=== PATIENT | male | born 1990 | race Hispanic/Latino ===

== ENCOUNTER 2017-11-29 14:07 | Emergency (ER) | payer SELFPAY ==
[2017-11-29] MEDS ORDERED: NA CHLORIDE 0.9% 1,000 ML ONE (14:31)
[2017-11-29 14:48] LABS: Absolute Lymphocytes (CBC) 1.4 K/uL (0.7-4.9); Absolute Monocytes 0.5 K/uL (0.1-1.3); Absolute Neutrophil 9.2 K/uL (1.8-8.0); Basophils % 0.7 % (0-1.3); Eosinophils % 0.8 % (0-4.4); Hematocrit 38.7 % (39.6-49.0); Lymphocytes % 12.2 % (15.3-44.8); MCH 29.4 pg (27.0-35.0); MCV 89.3 fL (80-100); MPV 9.8 fL (7.6-11.3); Monocytes % 4.5 % (3.3-12.3); RBC Red Blood Cell Count 4.34 M/uL (4.33-5.43)
[2017-11-29 14:52] LABS: Protime INR 0.98
[2017-11-29 15:01] LABS: Bicarbonate 25 mEq/L (21-31); Glucose Level 115 mg/dL (65-120); Potassium 3.2 mEq/L (3.6-5.0); Sodium Level 139 mEq/L (135-145)
[2017-11-29 15:05] LABS: ALT/SGPT 17 IU/L (10-60); AST/SGOT 25 IU/L (10-42); Albumin 3.8 g/dL (3.2-5.5); Alkaline Phosphatase 66 IU/L (42-121); BUN Blood Urea Nitrogen 12 mg/dL (6-20); Bilirubin Total 0.5 mg/dL (0.3-1.2); Protein, Total 5.8 g/dL (6.0-8.3)
--- NOTE | 2017-11-29 15:51 | EDPHYS ---
Physician Documentation [facility] Name: Carlos Walker Age: 26 yrs Sex: Male : 1990 Arrival Date: 11/29/2017 Time: 14:10 Bed 5 Private MD: ED Physician Joel Sandoval HPI: 11/29 14:20 This 26 yrs old Male presents to ER via EMS with complaints of Drug Abuse, ps1 Seizure. 14:20 as described in nursing note. Patient was mowing yard and had a seizure. Reportedly ps1 smoked synthetic marijuana. Known seizure precipitant. Additionally uses meth but denies use today. Appears post ictal and drowsy. Poor historian. . Historical: - Allergies: 14:14 Abilify; iw 14:14 Promethazine; iw - Home Meds: 14:14 Depakote Oral [Active]; iw - PMHx: 14:14 manic bipolar disorder; iw - PSHx: 14:14 None; iw - Immunization history:: Adult Immunizations not up to date. - Social history:: Smoking status: Patient uses tobacco products, denies chronic smoking, but will smoke occasionally, Patient uses alcohol, occasionally. street drugs, Methamphetamine (Meth) synthetic marijuana. - Ebola Screening: : Patient negative for fever greater than or equal to 101.5 degrees Fahrenheit, and additional compatible Ebola Virus Disease symptoms Patient denies exposure to infectious person Patient denies travel to an Ebola-affected area in the 21 days before illness onset No symptoms or risks identified at this time. ROS: 14:22 Unable to obtain ROS due to questionably post-ictal. Doesn't remember details of ps1 episode. suspicion for drug abuse. . Exam: 14:22 Constitutional: This is a well developed, well nourished patient who is awake, alert, ps1 and in no acute distress. Head/Face: Normocephalic, atraumatic. Eyes: Pupils equal round and reactive to light, extra-ocular motions intact. Lids and lashes normal. Conjunctiva and sclera are non-icteric and not injected. Chest/axilla: Normal chest wall appearance and motion. Nontender with no deformity. No lesions are appreciated. 14:22 Cardiovascular: Rate: tachycardic, Rhythm: regular, Pulses: no pulse deficits are appreciated, Heart sounds: normal, Edema: is not appreciated, JVD: is not appreciated. 14:22 Respiratory: Lungs have equal breath sounds bilaterally, clear to auscultation and ps1 percussion. No rales, rhonchi or wheezes noted. No increased work of breathing, no retractions or nasal flaring. Abdomen/GI: Soft, non-tender, with normal bowel sounds. No distension or tympany. No guarding or rebound. No evidence of tenderness throughout. MS/ Extremity: Pulses equal, no cyanosis. Neurovascular intact. Full, normal range of motion. Neuro: Awake and alert, GCS 15, oriented to person, place, time, and situation. Cranial nerves II-XII grossly intact. Sensory grossly intact. Vital Signs: 14:15 BP 118 / 78; Pulse 117; Resp 18 S; Pulse Ox 98% on R/A; Weight 63.5 kg; Height 5 ft. 8 iw in. (172.72 cm); Pain 0/10; 16:07 BP 124 / 65; Pulse 99; Resp 16 S; Pulse Ox 98% on R/A; Pain 0/10; iw 14:15 Body Mass Index 21.29 (63.50 kg, 172.72 cm) iw MDM: 14:22 Patient medically screened. ps1 15:51 Data reviewed: vital signs, nurses notes, lab test result(s), radiologic studies, no ps1 acute findings. Pt improved after IV fluids. Stable . 11/29 14:22 Order name: CBC with Diff; Complete Time: 15:07 ps1 11/29 14:22 Order name: CMP; Complete Time: 15:07 ps1 11/29 14:22 Order name: Lactate; Complete Time: 15:24 ps1 11/29 14:22 Order name: PT-INR; Complete Time: 15:07 ps1 Administered Medications: 14:30 Drug: NS 0.9% 1000 ml Route: IV; Rate: 1 bolus; Site: left antecubital; hb 15:15 Follow up: IV Status: Completed infusion ph Disposition: 15:52 Chart complete. ps1 Disposition: 11/29/17 15:51 Discharged to Home. Impression: Dehydration, Seizure related to synthetic marijuana use. . - Condition is Stable. - Discharge Instructions: Dehydration, Adult. - Medication Reconciliation Form, Thank You Letter, Antibiotic Education, Prescription Opioid Use form. - Follow up: Private Physician; When: As needed; Reason: Recheck today's complaints, Continuance of care, Re-evaluation by your physician. Follow up: Emergency Department; When: As needed; Reason: Worsening of condition. - Problem is new. - Symptoms have improved. Signatures: Dispatcher [employer] EDClau Rojo RN RN Rochelle Blanco RN RN Joel Sandoval MD MD ps1 Glenn, Ebony SHEFFIELD ph Corrections: (The following items were deleted from the chart) 16:08 15:51 11/29/2017 15:51 Discharged to Home. Impression: Dehydration; Seizure related to iw synthetic marijuana use. . Condition is Stable. Forms are Medication Reconciliation Form, Thank You Letter, Antibiotic Education, Prescription Opioid Use. Follow up: Private Physician; When: As needed; Reason: Recheck today's complaints, Continuance of care, Re-evaluation by your physician. Follow up: Emergency Department; When: As needed; Reason: Worsening of condition. Problem is new. Symptoms have improved. ps1
--- NOTE | 2017-11-29 15:51 | ER ---
Nurse's Notes [facility] Name: Carlos Walker Age: 26 yrs Sex: Male : 1990 Arrival Date: 11/29/2017 Time: 14:10 Bed 5 Private MD: Diagnosis: Dehydration;Seizure related to synthetic marijuana use. Presentation: 11/29 14:11 Presenting complaint: EMS states: pt was out mowing yards, had witnessed seizure, iw described as convulsions, pt was postictal on scene, started coming around, was placed on EMS stretcher and then unbuckled himself and took off running, pt admits to smoking synthetic marijuana today, denies hx of seizures, pt A\T\OX3 upon arrival to ER, also has hx of meth use but denies using today. Transition of care: patient was not received from another setting of care. Onset of symptoms was November 29, 2017. Risk Assessment: Do you want to hurt yourself or someone else? Patient reports no desire to harm self or others. Initial Sepsis Screen: Does the patient meet any 2 criteria? No. Patient's initial sepsis screen is negative. Does the patient have a suspected source of infection? No. Patient's initial sepsis screen is negative. Care prior to arrival: IV initiated. 20 GA, in the left antecubital area. 14:11 Method Of Arrival: EMS: [facility] iw 14:11 Acuity: EDD 3 iw Historical: - Allergies: 14:14 Abilify; iw 14:14 Promethazine; iw - Home Meds: 14:14 Depakote Oral [Active]; iw - PMHx: 14:14 manic bipolar disorder; iw - PSHx: 14:14 None; iw - Immunization history:: Adult Immunizations not up to date. - Social history:: Smoking status: Patient uses tobacco products, denies chronic smoking, but will smoke occasionally, Patient uses alcohol, occasionally. street drugs, Methamphetamine (Meth) synthetic marijuana. - Ebola Screening: : Patient negative for fever greater than or equal to 101.5 degrees Fahrenheit, and additional compatible Ebola Virus Disease symptoms Patient denies exposure to infectious person Patient denies travel to an Ebola-affected area in the 21 days before illness onset No symptoms or risks identified at this time. Screenin:41 Abuse screen: Denies threats or abuse. Denies injuries from another. Nutritional hb screening: No deficits noted. Tuberculosis screening: No symptoms or risk factors identified. Fall Risk Total Mares Fall Scale indicates High Risk Score (45 or more points). Fall prevention measures have been instituted. Side Rails Up X 2 Frequent Obs/Assessments Occuring As available patient and family educated on Fall Prevention Program and Strategies. Assessment: 14:40 General: Appears in no apparent distress. comfortable, slender, Behavior is calm, ph cooperative, drowsy, quiet. Pain: Denies pain. Neuro: Level of Consciousness is obeys commands, lethargic, Oriented to person, place, situation, Moves all extremities. Weakness Seizure activity reported prior to arrival. Cardiovascular: Reports fatigue, Denies chest pain, nausea, shortness of breath, Capillary refill < 3 seconds in bilateral fingers Patient's skin is warm and dry. Respiratory: Airway is patent Respiratory effort is even, unlabored, Respiratory pattern is regular, symmetrical. GI: No signs and/or symptoms were reported involving the gastrointestinal system. Derm: Skin is intact, is healthy with good turgor, Skin is pink, warm \T\ dry. Musculoskeletal: Circulation, motion, and sensation intact. Range of motion: intact in all extremities. 16:07 Reassessment: Patient appears in no apparent distress at this time. Patient and/or iw family updated on plan of care and expected duration. Pain level reassessed. Patient is alert, oriented x 3, equal unlabored respirations, skin warm/dry/pink. Vital Signs: 14:15 BP 118 / 78; Pulse 117; Resp 18 S; Pulse Ox 98% on R/A; Weight 63.5 kg; Height 5 ft. 8 iw in. (172.72 cm); Pain 0/10; 16:07 BP 124 / 65; Pulse 99; Resp 16 S; Pulse Ox 98% on R/A; Pain 0/10; iw 14:15 Body Mass Index 21.29 (63.50 kg, 172.72 cm) ED Course: 14:10 Patient arrived in ED. iw 14:13 Triage completed. iw 14:13 Joel Sandoval MD is Attending Physician. ps1 14:15 Arm band placed on. iw 14:15 Patient has correct armband on for positive identification. Bed in low position. Call hb light in reach. Side rails up X2. Seizure precautions initiated. 14:30 Maintain EMS IV. Dressing intact. Good blood return noted. Site clean \T\ dry. Gauge \T\ hb site: 20g LEFT AC. 14:31 Ebony Elizabeth, RN is Primary Nurse. ph 14:48 No provider procedures requiring assistance completed. ph 16:07 IV discontinued, intact, bleeding controlled, No redness/swelling at site. Pressure iw dressing applied. Administered Medications: 14:30 Drug: NS 0.9% 1000 ml Route: IV; Rate: 1 bolus; Site: left antecubital; hb 15:15 Follow up: IV Status: Completed infusion ph Outcome: 15:51 Discharge ordered by . ps1 16:07 Discharged to home ambulatory. iw 16:07 Condition: good 16:07 Discharge instructions given to patient, Instructed on discharge instructions, follow up and referral plans. Demonstrated understanding of instructions, follow-up care. 16:08 Patient left the ED. iw Signatures: Clau Rincon RN RN Ebony Elizabeth RN RN Rochelle Blanco RN RN Joel Sandoval MD MD ps1
[2017-11-29 16:12] VITALS: O2SAT 98
[2017-11-29 16:13] VITALS: BP 124/65
== END 2017-11-29 16:08 | disposition home or self-care (01) ==
LOC: ER 14:07
DX: E86.0 Dehydration (principal); F12.188 Cannabis abuse with other cannabis-induced disorder; R56.9 Unspecified convulsions; F17.200 Nicotine dependence, unspecified, uncomplicated; F15.10 Other stimulant abuse, uncomplicated
CPT/HCPCS: 36415; 80053; 83605; 85025; 85610; 96360; 99283; J7030

== ENCOUNTER 2018-01-04 00:16 | Emergency (ER) | payer SELFPAY ==
[2018-01-04] MEDS ORDERED: NA CHLORIDE 0.9% 1,000 ML ONE ×2 (00:45→01:51)
[2018-01-04 01:26] LABS: Absolute Lymphocytes (CBC) 1.7 K/uL (0.7-4.9); Absolute Monocytes 0.5 K/uL (0.1-1.3); Absolute Neutrophil 6.1 K/uL (1.8-8.0); Basophils % 1.2 % (0-1.3); Hematocrit 41.8 % (39.6-49.0); Lymphocytes % 20.4 % (15.3-44.8); MCV 88.9 fL (80-100); MPV 9.8 fL (7.6-11.3); Monocytes % 6.3 % (3.3-12.3)
[2018-01-04 01:30] LABS: Protime INR 1.03
[2018-01-04 02:15] LABS: Urine Blood NEGATIVE (NEG); Urine Glucose TRACE (NEG); Urine Protein 2+ (NEG); Urine Specific Gravity >1.030 (1.005-1.030)
[2018-01-04 02:17] LABS: ALT/SGPT 22 U/L (12-78); AST/SGOT 19 U/L (15-37); Albumin 4.2 g/dL (3.4-5.0); Alkaline Phosphatase 86 U/L (45-117); BUN Blood Urea Nitrogen 12 mg/dL (7-18); Bicarbonate 29 mmol/L (21-32); Bilirubin Direct 0.1 mg/dL (0-0.2); Bilirubin Total 0.5 mg/dL (0.2-1.0); Glucose Level 84 mg/dL (74-106); Potassium 3.6 mmol/L (3.5-5.1); Protein, Total 7.3 g/dL (6.4-8.2); Sodium Level 140 mmol/L (136-145)
[2018-01-04 02:18] LABS: Alcohol Serum/Plasma < 3 mg/dL (0-3)
[2018-01-04 02:18] LABS: Barbiturates NEGATIVE (NEGATIVE); Benzodiazepines NEGATIVE (NEGATIVE); Cocaine NEGATIVE (NEGATIVE); METHAMPHETAM POSITIVE (NEGATIVE); Methadone NEGATIVE (NEGATIVE); Opiates NEGATIVE (NEGATIVE); Phencyclidine NEGATIVE (NEGATIVE); THC Cannibis POSITIVE (NEGATIVE)
--- NOTE | 2018-01-04 02:49 | EDPHYS ---
Physician Documentation [facility] Name: Carlos Walker Age: 27 yrs Sex: Male : 1990 Arrival Date: 01/04/2018 Time: 00:22 Bed 14 Private MD: ED Physician Raymon Avendano HPI: 01/04 00:33 This 27 yrs old Male presents to ER via EMS with complaints of Drug Abuse. jr8 00:33 The patient presents to the emergency department after a known overdose, a result of jr8 recreational substance abuse. Context: Method: the patient has a confirmed or suspected inhalation, it is confirmed or suspected that the patient injected a substance. Severity of symptoms: At their worst the symptoms were moderate in the emergency department the symptoms are unchanged. It is unknown whether or not the patient has had similar symptoms in the past. The patient has not recently seen a physician. Patient stated that he has been on PCP, Meth, and Synthetic since earlier today. Was brought in by EMS after being called out for altered patient. Patient disheveled and minimally responsive upon arrival. Had vomited all over himself . Historical: - Allergies: 00:26 Abilify; fc 00:26 Promethazine; fc - Home Meds: 00:26 None [Active]; fc - PMHx: 00:26 manic bipolar disorder; fc - PSHx: 00:26 None; fc - Immunization history:: Last tetanus immunization: unknown. - Social history:: Smoking status: Patient uses tobacco products, Patient uses street drugs, Methamphetamine (Meth) Synthetic, phencyclidine. - Ebola Screening: : Patient negative for fever greater than or equal to 101.5 degrees Fahrenheit, and additional compatible Ebola Virus Disease symptoms Patient denies exposure to infectious person Patient denies travel to an Ebola-affected area in the 21 days before illness onset. ROS: 00:33 Eyes: Negative for injury, pain, redness, and discharge, ENT: Negative for injury, jr8 pain, and discharge, Neck: Negative for injury, pain, and swelling, Cardiovascular: Negative for chest pain, palpitations, and edema, Respiratory: Negative for shortness of breath, cough, wheezing, and pleuritic chest pain, Abdomen/GI: Negative for abdominal pain, nausea, vomiting, diarrhea, and constipation, Back: Negative for injury and pain, MS/Extremity: Negative for injury and deformity, Skin: Negative for injury, rash, and discoloration, Neuro: Negative for headache, weakness, numbness, tingling, and seizure. Exam: 00:33 Eyes: Pupils equal round and reactive to light, extra-ocular motions intact. Lids and jr8 lashes normal. Conjunctiva and sclera are non-icteric and not injected. Cornea within normal limits. Periorbital areas with no swelling, redness, or edema. ENT: Nares patent. No nasal discharge, no septal abnormalities noted. Tympanic membranes are normal and external auditory canals are clear. Oropharynx with no redness, swelling, or masses, exudates, or evidence of obstruction, uvula midline. Mucous membranes moist. Neck: Trachea midline, no thyromegaly or masses palpated, and no cervical lymphadenopathy. Supple, full range of motion without nuchal rigidity, or vertebral point tenderness. No Meningismus. Cardiovascular: Regular rate and rhythm with a normal S1 and S2. No gallops, murmurs, or rubs. Normal PMI, no JVD. No pulse deficits. Respiratory: Lungs have equal breath sounds bilaterally, clear to auscultation and percussion. No rales, rhonchi or wheezes noted. No increased work of breathing, no retractions or nasal flaring. Abdomen/GI: Soft, non-tender, with normal bowel sounds. No distension or tympany. No guarding or rebound. No evidence of tenderness throughout. Back: No spinal tenderness. No costovertebral tenderness. Full range of motion. Skin: Warm, dry with normal turgor. Normal color with no rashes, no lesions, and no evidence of cellulitis. MS/ Extremity: Pulses equal, no cyanosis. Neurovascular intact. Full, normal range of motion. Neuro: Awake and alert, GCS 15, oriented to person, place, time, and situation. Cranial nerves II-XII grossly intact. Motor strength 5/5 in all extremities. Sensory grossly intact. Cerebellar exam normal. Normal gait. Vital Signs: 00:15 BP 110 / 83; Pulse 98; Resp 20; Temp 97.7(O); Pulse Ox 97% on R/A; Weight 69.85 kg (R); fc Height 5 ft. 8 in. (172.72 cm) (R); Pain 0/10; 01:50 BP 117 / 84; Pulse 81; Resp 16; Pulse Ox 100% on R/A; rv 03:00 BP 115 / 86; Pulse 74; Resp 16; Pulse Ox 100% on R/A; rv 00:15 Body Mass Index 23.42 (69.85 kg, 172.72 cm) fc MDM: 00:24 Patient medically screened. [facility] 02:46 Data reviewed: vital signs, nurses notes, lab test result(s), and as a result, I will jr8 discharge patient. Data interpreted: Pulse oximetry: on room air is 100 %. Interpretation: normal. Counseling: I had a detailed discussion with the patient and/or guardian regarding: the historical points, exam findings, and any diagnostic results supporting the discharge/admit diagnosis, lab results, the need for outpatient follow up, a family practitioner, to return to the emergency department if symptoms worsen or persist or if there are any questions or concerns that arise at home. Response to treatment: the patient's symptoms have markedly improved after treatment, patient is well hydrated. ED course: Patient alert and awake now with no stimulus. A\T\O x3. Will discharge home . 01/04 00:25 Order name: Acetaminophen; Complete Time: 0201/04 00:25 Order name: Basic Metabolic Panel; Complete Time: 01/04 00:25 Order name: CBC with Diff; Complete Time: 01/04 00:25 Order name: ETOH Level; Complete Time: 01/04 00:25 Order name: Hepatic Function; Complete Time: 01/04 00:25 Order name: PT-INR; Complete Time: 01/04 00:25 Order name: Ptt, Activated; Complete Time: 01/04 00:25 Order name: Salicylate; Complete Time: :01/04 00:25 Order name: Urine Drug Screen; Complete Time: 01/04 00:25 Order name: EKG; Complete Time: 00:01/04 01:50 Order name: Urine Dipstick--Ancillary (enter results) rg2 01/04 01:50 Order name: Urine Dipstick-Ancillary; Complete Time: 02:35 [facility] 01/04 00:25 Order name: EKG - Nurse/Tech; Complete Time: 01:01/04 00:25 Order name: IV Saline Lock; Complete Time: :01/04 00:25 Order name: Labs collected and sent; Complete Time: 01/04 00:25 Order name: Urine Dipstick-Ancillary (obtain specimen); Complete Time: 01:48 8 Administered Medications: 01:18 Drug: NS 0.9% 1000 ml Route: IV; Rate: 1000 ml; Site: right antecubital; rv 01:49 Follow up: Response: No adverse reaction; IV Status: Completed infusion rv 01:48 Drug: NS 0.9% 1000 ml Route: IV; Rate: 1000 ml; Site: right antecubital; rv Disposition: 06:59 Co-signature as Attending Physician, Raymon Avendano MD I agree with the assessment and greyson plan of care. Disposition: 01/04/18 02:48 Discharged to Home. Impression: Overdose on Recreational Drugs, Drug abuse counseling and surveillance. - Condition is Stable. - Discharge Instructions: Alcohol and Drug Addiction, Finding Treatment. - Medication Reconciliation Form, Thank You Letter, Antibiotic Education, Prescription Opioid Use form. - Follow up: Private Physician; When: 2 - 3 days; Reason: Recheck today's complaints, Continuance of care, Re-evaluation by your physician. - Problem is new. - Symptoms have improved. Signatures: Dispatcher [employer] Raymon Colmenares MD MD cha Chretien, Felicia, RN RN Hector Reyes PA PA jr8 José Benitez RN RN rv Corrections: (The following items were deleted from the chart) 03:17 02:48 01/04/2018 02:48 Discharged to Home. Impression: Overdose on Recreational Drugs; rv Drug abuse counseling and surveillance. Condition is Stable. Forms are Medication Reconciliation Form, Thank You Letter, Antibiotic Education, Prescription Opioid Use. Follow up: Private Physician; When: 2 - 3 days; Reason: Recheck today's complaints, Continuance of care, Re-evaluation by your physician. Problem is new. Symptoms have improved. jr8
--- NOTE | 2018-01-04 02:49 | ER ---
Nurse's Notes [facility] Name: Carlos Walker Age: 27 yrs Sex: Male : 1990 Arrival Date: 01/04/2018 Time: 00:22 Bed 14 Private MD: Diagnosis: Overdose on Recreational Drugs;Drug abuse counseling and surveillance Presentation: 01/04 00:15 Presenting complaint: EMS states: that they were toned for unresponsive person in a driveway. Upon arrival pt was lying in the driveway and ammonia cap was used and pt woke up. Pt admitted to PCP, Meth and Synthetic. Transition of care: patient was not received from another setting of care. Onset of symptoms was January 04, 2018. Risk Assessment: Do you want to hurt yourself or someone else? Patient reports no desire to harm self or others. Initial Sepsis Screen: Does the patient meet any 2 criteria? HR > 90 bpm. Yes Does the patient have a suspected source of infection? No. Patient's initial sepsis screen is negative. Care prior to arrival: Medication(s) given: ammonia cap Glucose check: 93. 00:15 Method Of Arrival: EMS: [facility] 00:15 Acuity: EDD 3 fc Historical: - Allergies: 00:26 Abilify; 00:26 Promethazine; fc - Home Meds: 00:26 None [Active]; fc - PMHx: 00:26 manic bipolar disorder; fc - PSHx: 00:26 None; fc - Immunization history:: Last tetanus immunization: unknown. - Social history:: Smoking status: Patient uses tobacco products, Patient uses street drugs, Methamphetamine (Meth) Synthetic, phencyclidine. - Ebola Screening: : Patient negative for fever greater than or equal to 101.5 degrees Fahrenheit, and additional compatible Ebola Virus Disease symptoms Patient denies exposure to infectious person Patient denies travel to an Ebola-affected area in the 21 days before illness onset. Screenin:26 Abuse screen: Denies threats or abuse. Nutritional screening: No deficits noted. Tuberculosis screening: No symptoms or risk factors identified. 03:01 Fall Risk None identified. rv Assessment: 00:25 General: Appears in no apparent distress. comfortable, Behavior is calm, restless. rv Pain: Denies pain. Neuro: Level of Consciousness is awake, confused. Cardiovascular: Capillary refill < 3 seconds. Respiratory: Airway is patent. GI: No signs and/or symptoms were reported involving the gastrointestinal system. : No signs and/or symptoms were reported regarding the genitourinary system. EENT: No signs and/or symptoms were reported regarding the EENT system. Derm: Skin is intact. Vital Signs: 00:15 BP 110 / 83; Pulse 98; Resp 20; Temp 97.7(O); Pulse Ox 97% on R/A; Weight 69.85 kg (R); fc Height 5 ft. 8 in. (172.72 cm) (R); Pain 0/10; 01:50 BP 117 / 84; Pulse 81; Resp 16; Pulse Ox 100% on R/A; rv 03:00 BP 115 / 86; Pulse 74; Resp 16; Pulse Ox 100% on R/A; rv 00:15 Body Mass Index 23.42 (69.85 kg, 172.72 cm) ED Course: 00:15 Arm band placed on Patient placed in an exam room, on a stretcher. fc 00:22 Patient arrived in ED. fc 00:24 Hector Draper PA is PHCP. jr8 00:24 Raymon Avendano MD is Attending Physician. jr8 00:25 Triage completed. fc 00:26 Patient has correct armband on for positive identification. Bed in low position. Call light in reach. Side rails up X2. 01:18 Inserted saline lock: 18 gauge in right antecubital area, using aseptic technique. rv 03:00 No provider procedures requiring assistance completed. IV discontinued, bleeding rv controlled, No redness/swelling at site. Pressure dressing applied. Administered Medications: 01:18 Drug: NS 0.9% 1000 ml Route: IV; Rate: 1000 ml; Site: right antecubital; rv 01:49 Follow up: Response: No adverse reaction; IV Status: Completed infusion rv 01:48 Drug: NS 0.9% 1000 ml Route: IV; Rate: 1000 ml; Site: right antecubital; rv Outcome: 02:48 Discharge ordered by . jr8 03:01 Discharged to home ambulatory. rv 03:01 Condition: good 03:01 Discharge instructions given to patient, Instructed on discharge instructions. 03:17 Patient left the ED. rv Signatures: Isi River RN RN Hector Draper PA PA jr8 José Benitez, RN RN rv
[2018-01-04 03:22] VITALS: O2SAT 100
[2018-01-04 03:23] VITALS: BP 115/86
--- NOTE | 2018-01-04 08:36 | EKG ---
Test Date: 2018-01-04 Test Time: 00:56:17 Environmental Planner: MEASUREMENT RESULTS: Intervals: Rate: 83 NE: 140 QRSD: 98 QT: 362 QTc: 425 [place]: P: 81 NE: 140 QRS: 90 T: 69 INTERPRETIVE STATEMENTS: Normal sinus rhythm Rightward axis Pulmonary disease pattern Abnormal ECG Compared to ECG 08/22/2017 22:26:54 Sinus tachycardia no longer present Electronically Signed On 01-04-18 08:35:09 CDT by Ángel Maki
== END 2018-01-04 03:17 | disposition home or self-care (01) ==
LOC: ER 00:16
DX: T50.991A Poisoning by other drugs, medicaments and biological substances, accidental (unintentional), initial encounter (principal); Y92.89 Other specified places as the place of occurrence of the external cause; Z71.51 Drug abuse counseling and surveillance of drug abuser; Z72.0 Tobacco use; Z88.8 Allergy status to other drugs, medicaments and biological substances; F31.89 Other bipolar disorder
CPT/HCPCS: 36415; 80048; 80076; 80307; 80320; 80329; 81003; 85025; 85610; 85730; 93005; 96360; 99283; J7030

== ENCOUNTER 2018-02-16 18:23 | Emergency (ER) | payer SELFPAY ==
[2018-02-16] MEDS ORDERED: NA CHLORIDE 0.9% 1,000 ML ONE (19:35)
[2018-02-16] MEDS ORDERED: DIPHENHYDRAMINE 50 MG/ML VIAL ONE (19:35)
[2018-02-16] MEDS ORDERED: HALOPERIDOL LACT 5 MG/ML INJ ONE (19:35)
[2018-02-16] MEDS ORDERED: LORazepam 2 MG/ML VIAL ONE (19:35)
[2018-02-16 19:36] LABS: Protime INR 1.06
[2018-02-16 19:40] LABS: Absolute Lymphocytes (CBC) 1.3 K/uL (0.7-4.9); Absolute Monocytes 0.7 K/uL (0.1-1.3); Absolute Neutrophil 9.7 K/uL (1.8-8.0); Basophils % 0.6 % (0-1.3); Eosinophils % 0.2 % (0-4.4); Hematocrit 43.1 % (39.6-49.0); Lymphocytes % 10.8 % (15.3-44.8); MCV 86.9 fL (80-100); MPV 10.2 fL (7.6-11.3); Monocytes % 6.1 % (3.3-12.3); RBC Red Blood Cell Count 4.96 M/uL (4.33-5.43)
[2018-02-16 19:42] LABS: Barbiturates NEGATIVE (NEGATIVE); Benzodiazepines NEGATIVE (NEGATIVE); Cocaine NEGATIVE (NEGATIVE); METHAMPHETAM NEGATIVE (NEGATIVE); Methadone NEGATIVE (NEGATIVE); Opiates NEGATIVE (NEGATIVE); Phencyclidine NEGATIVE (NEGATIVE); THC Cannibis NEGATIVE (NEGATIVE)
[2018-02-16 19:56] LABS: ALT/SGPT 47 U/L (12-78); AST/SGOT 69 U/L (15-37); Albumin 4.7 g/dL (3.4-5.0); Alkaline Phosphatase 105 U/L (45-117); BUN Blood Urea Nitrogen 17 mg/dL (7-18); Bicarbonate 30 mmol/L (21-32); Bilirubin Direct 0.1 mg/dL (0-0.2); Bilirubin Total 0.4 mg/dL (0.2-1.0); Glucose Level 87 mg/dL (74-106); Potassium 3.8 mmol/L (3.5-5.1); Sodium Level 138 mmol/L (136-145)
[2018-02-16 20:00] LABS: Alcohol Serum/Plasma < 3 mg/dL (<3)
[2018-02-16 20:02] LABS: Urine Blood NEGATIVE (NEG); Urine Glucose NEGATIVE (NEG); Urine Protein 2+ (NEG); Urine Specific Gravity >1.030 (1.005-1.030); Urine pH 5.5 (5.0-7.0)
[2018-02-17] MEDS ORDERED: FAMOTIDINE 20 MG/2 ML VIAL IV ONE ×2 (08:43)
[2018-02-17] MEDS ORDERED: NICOTINE 21 MG/PAT TD ONE (15:06)
--- NOTE | 2018-02-17 16:30 | EKG ---
Test Date: 2018-02-16 Test Time: 20:28:58 Unclaimed Property Manager: KATTY MEASUREMENT RESULTS: Intervals: Rate: 98 [place]: 140 QRSD: 98 QT: 376 QTc: 480 [place]: P: 82 [place]: 140 QRS: 87 T: 41 INTERPRETIVE STATEMENTS: Normal sinus rhythm Incomplete right bundle branch block Prolonged QT Abnormal ECG Compared to ECG 01/04/2018 00:56:17 Incomplete right bundle-branch block now present Prolonged QT interval now present Right-axis deviation no longer present Electronically Signed On 02-17-18 16:27:45 CDT by Ángel Maki
[2018-02-17] MEDS ORDERED: DIPHENHYDRAMINE 50 MG/ML VIAL ONE (21:58)
[2018-02-17] MEDS ORDERED: HALOPERIDOL LACT 5 MG/ML INJ ONE (21:58)
--- NOTE | 2018-02-18 01:22 | EDPHYS ---
Physician Documentation [facility] Name: Carlos Walker Age: 27 yrs Sex: Male : 1990 Arrival Date: 02/16/2018 Time: 18:37 Bed 17 Private MD: ED Physician Bladimir Moore HPI: 02/17 00:00 This 27 yrs old Male presents to ER via EMS with complaints of Psych Problem. pm1 00:00 The patient presents to the emergency department with homicidal ideation, the patient pm1 has harmed or wants to harm family, Plan? Cut them up, Feeling manic. Past psychiatric history: Prior diagnosis: bipolar disorder, Psychiatric medications include: none, Primary psychiatric physician: the patient does not have a primary psychiatric physician. Associated signs and symptoms: The patient has no apparent associated signs or symptoms. The patient has not recently seen a physician. Patient's family called the police because the patient was threatening to kill them by cutting them up with a knife. He was yelling at cars and felt like he was about to breakdown. [place] police department arrived at the seen and offered to help the patient get to a psychiatric facility in [place] if he would go to an ER. Patient has not taken his medications for bipolar disorder for multiple months and voluntarily came to the ER for help. Historical: - Allergies: 02/16 18:42 Abilify; jl7 18:42 Promethazine; jl7 - PMHx: 18:42 manic bipolar disorder; jl7 - PSHx: 18:42 None; jl7 - Immunization history:: Adult Immunizations not up to date. - Social history:: Smoking status: Patient uses tobacco products, smokes one-half pack cigarettes per day, Patient uses street drugs, marijuana, Methamphetamine (Meth). - Ebola Screening: : No symptoms or risks identified at this time. ROS: 02/17 00:00 Constitutional: Negative for fever, chills, and weight loss, Eyes: Negative for injury, pm1 pain, redness, and discharge, ENT: Negative for injury, pain, and discharge, Neck: Negative for injury, pain, and swelling, Cardiovascular: Negative for chest pain, palpitations, and edema, Respiratory: Negative for shortness of breath, cough, wheezing, and pleuritic chest pain, Abdomen/GI: Negative for abdominal pain, nausea, vomiting, diarrhea, and constipation, Back: Negative for injury and pain, : Negative for injury, bleeding, discharge, and swelling, MS/Extremity: Negative for injury and deformity, Skin: Negative for injury, rash, and discoloration, Neuro: Negative for headache, weakness, numbness, tingling, and seizure. Psych: Positive for homicidal ideation, Negative for auditory hallucinations, visual hallucinations, suicide gesture, suicidal ideation. Exam: 00:00 Constitutional: This is a well developed, well nourished patient who is awake, alert, pm1 and in no acute distress. Head/Face: Normocephalic, atraumatic. Eyes: Pupils equal round and reactive to light, extra-ocular motions intact. Lids and lashes normal. Conjunctiva and sclera are non-icteric and not injected. Cornea within normal limits. Periorbital areas with no swelling, redness, or edema. ENT: Nares patent. No nasal discharge, no septal abnormalities noted. Tympanic membranes are normal and external auditory canals are clear. Oropharynx with no redness, swelling, or masses, exudates, or evidence of obstruction, uvula midline. Mucous membranes moist. Neck: Trachea midline, no thyromegaly or masses palpated, and no cervical lymphadenopathy. Supple, full range of motion without nuchal rigidity, or vertebral point tenderness. No Meningismus. Chest/axilla: Normal chest wall appearance and motion. Nontender with no deformity. No lesions are appreciated. Cardiovascular: Regular rate and rhythm with a normal S1 and S2. No gallops, murmurs, or rubs. Normal PMI, no JVD. No pulse deficits. Respiratory: Lungs have equal breath sounds bilaterally, clear to auscultation and percussion. No rales, rhonchi or wheezes noted. No increased work of breathing, no retractions or nasal flaring. Abdomen/GI: Soft, non-tender, with normal bowel sounds. No distension or tympany. No guarding or rebound. No evidence of tenderness throughout. Back: No spinal tenderness. No costovertebral tenderness. Full range of motion. Skin: Warm, dry with normal turgor. Normal color with no rashes, no lesions, and no evidence of cellulitis. MS/ Extremity: Pulses equal, no cyanosis. Neurovascular intact. Full, normal range of motion. Neuro: Awake and alert, GCS 15, oriented to person, place, time, and situation. Cranial nerves II-XII grossly intact. Motor strength 5/5 in all extremities. Sensory grossly intact. Cerebellar exam normal. Normal gait. 00:00 Psych: Behavior/mood is aggressive, angry, Affect is animated, Oriented to person, place, time, Patient having thoughts of homicide. Homicidal thoughts directed towards family Delusions/hallucinations are not present. Vital Signs: 02/16 18:42 BP 109 / 75; Pulse 111; Resp 16 S; Pulse Ox 96% on R/A; Weight 59.42 kg (R); Height 5 jl7 ft. 6 in. (167.64 cm) (R); Pain 10/10; 19:40 BP 116 / 69; Pulse 109; Resp 16; Pulse Ox 98% on R/A; lp1 20:30 BP 96 / 64; Pulse 101; Resp 18; Pulse Ox 99% on R/A; lp1 02/17 01:26 BP 110 / 71; Pulse 84; Resp 16; Pulse Ox 98% on R/A; lp1 03:16 BP 109 / 70; Pulse 72; Resp 16; Pulse Ox 99% on R/A; lp1 06:00 BP 115 / 84; Pulse 69; Resp 16; Pulse Ox 99% on R/A; lp1 10:00 BP 102 / 76; Pulse 72; Resp 15; Temp 97.5(O); Pulse Ox 98% on R/A; mh5 14:59 BP 105 / 74; Pulse 68; Resp 16; Pulse Ox 100% ; Pain 0/10; ms 18:07 BP 128 / 84; Pulse 91; Resp 18; Pulse Ox 97% ; vs1 02/16 18:42 Body Mass Index 21.14 (59.42 kg, 167.64 cm) jl7 MDM: 02/16 18:46 Patient medically screened. pm1 02/17 00:00 Data reviewed: vital signs. Data interpreted: Pulse oximetry: on room air is 98 %. pm1 Interpretation: normal. 02/18 01:17 ED course: I was called to see patient immediately by nursing staff after patient zahraa started to become aggressive for unknown reason. Patient approached me and stated that he was going to beat my ass and slit my throat. At that time police was called to assist us. Patient was able to be calmed down and was given medication to relax him. Charges were being filed to against patient for terroristic threat. Patient was released to police to be brought to [facility] so mental health officer can further evaluate him . 02/16 18:42 Order name: Acetaminophen; Complete Time: 20:07 rn 02/16 18:42 Order name: Basic Metabolic Panel; Complete Time: 20:07 rn 02/16 18:42 Order name: CBC with Diff; Complete Time: 19:50 rn 02/16 18:42 Order name: ETOH Level; Complete Time: 20:07 rn 02/16 18:42 Order name: Hepatic Function; Complete Time: 20:07 rn 02/16 18:42 Order name: PT-INR; Complete Time: 19:50 rn 02/16 18:42 Order name: Ptt, Activated; Complete Time: 19:50 rn 02/16 18:42 Order name: Salicylate; Complete Time: 19:50 rn 02/16 18:42 Order name: Urine Drug Screen; Complete Time: 19:50 rn 02/16 19:07 Order name: Urine Dipstick--Ancillary (enter results); Complete Time: 20:07 sd 02/16 18:42 Order name: EKG; Complete Time: 18:42 rn 02/16 18:42 Order name: EKG - Nurse/Tech; Complete Time: 20:42 rn 02/16 18:42 Order name: IV Saline Lock; Complete Time: 19:42 rn 02/16 18:42 Order name: Labs collected and sent; Complete Time: 19:42 rn 02/16 18:42 Order name: Urine Dipstick-Ancillary (obtain specimen); Complete Time: 19:11 rn 02/17 07:23 Order name: Diet Regular; Complete Time: 07:24 aa5 02/17 11:11 Order name: Diet Regular; Complete Time: 11:11 em 02/17 14:39 Order name: Diet Regular; Complete Time: 14:40 mh5 Administered Medications: 02/16 19:41 Drug: Benadryl 25 mg Route: IVP; Site: left forearm; lp1 20:41 Follow up: Response: Marked relief of symptoms lp1 19:41 Drug: HALdol 5 mg Route: IVP; Site: left forearm; lp1 20:41 Follow up: Response: Marked relief of symptoms lp1 19:41 Drug: Ativan 2 mg Route: IVP; Site: left forearm; lp1 20:41 Follow up: Response: Marked relief of symptoms lp1 19:42 Drug: NS 0.9% 1000 ml Route: IV; Rate: 1 bolus; Site: left forearm; lp1 21:30 Follow up: IV Status: Completed infusion; IV Intake: 1000ml lp1 02/17 08:50 Drug: Pepcid 20 mg Route: IVP; Site: left forearm; iw 09:34 Follow up: Response: No adverse reaction; Pain is decreased em 15:06 Drug: Nicotine 21 mg/24 hr 1 patches Route: Transdermal; Site: anterior chest wall; em 22:12 Drug: HALdol 5 mg Route: IVP; Site: right antecubital; ea 22:27 Follow up: Response: No adverse reaction ea 22:12 Drug: Benadryl 50 mg Route: IVP; Site: right antecubital; ea 22:27 Follow up: Response: No adverse reaction ea Disposition: 02/18/18 01:21 Discharged to Law Enforcement. Impression: Acute Psychosis, Homicidal ideations. - Condition is Stable. - SBAR form, Medication Reconciliation Form, Thank You Letter, Antibiotic Education, Prescription Opioid Use form. - Follow up: Private Physician; When: 1 - 2 days; Reason: Recheck today's complaints, Continuance of care, Re-evaluation by your physician. - Problem is new. - Symptoms are unchanged. Addendum: 02/20/2018 01:58 Co-signature as Attending Physician, Bladimir Moore MD. r n Signatures: Dispatcher [employer] EDMO Ariel Wong, WAREHOUSE ASSOCIATE WAREHOUSE ASSOCIATE em Clau Rincon RN RN iw Nieto, Roman, MD MD rn Pena, Laura, RN RN lp1 Hector Draper PA PA jr8 Stone Mann, BOTTOMER OPERATOR BOTTOMER OPERATOR pm1 Ana Francis RN RN jl7 Khadra Davalos RN RN ea Starr, Gregory, MD MD gs Corrections: (The following items were deleted from the chart) 02/18 01:21 01:21 02/18/2018 01:21 Discharged to Home. Impression: Acute Psychosis; Homicidal jr8 ideations. Condition is Stable. Forms are SBAR form, Medication Reconciliation Form, Thank You Letter, Antibiotic Education, Prescription Opioid Use. Follow up: Private Physician; When: 1 - 2 days; Reason: Recheck today's complaints, Continuance of care, Re-evaluation by your physician. Problem is new. Symptoms are unchanged. jr8 01:24 01:21 02/18/2018 01:21 Discharged to Law Enforcement. Impression: Acute Psychosis; ea Homicidal ideations. Condition is Stable. Forms are SBAR form, Medication Reconciliation Form, Thank You Letter, Antibiotic Education, Prescription Opioid Use. Follow up: Private Physician; When: 1 - 2 days; Reason: Recheck today's complaints, Continuance of care, Re-evaluation by your physician. Problem is new. Symptoms are unchanged. jr8
--- NOTE | 2018-02-18 01:22 | ER ---
Nurse's Notes [facility] Name: Carlos Walker Age: 27 yrs Sex: Male : 1990 Arrival Date: 02/16/2018 Time: 18:37 Bed 17 Private MD: Diagnosis: Acute Psychosis;Homicidal ideations Presentation: 02/16 18:38 Presenting complaint: Patient states: "I was yelling at cars and felt like I was about jl to have an episode and the police said they'd get me to [place] where my doctor is." EMS states: Pt has been out of psych meds for 10 months and wanted to come here. Transition of care: patient was not received from another setting of care. Onset of symptoms was February 16, 2018. Risk Assessment: Do you want to hurt yourself or someone else? Patient reports no desire to harm self or others. Initial Sepsis Screen: Does the patient meet any 2 criteria? No. Patient's initial sepsis screen is negative. Does the patient have a suspected source of infection? No. Patient's initial sepsis screen is negative. Care prior to arrival: None. 18:38 Method Of Arrival: EMS: [facility] 7 18:38 Acuity: EDD 3 jl7 Triage Assessment: 18:42 General: Appears uncomfortable, slender, Behavior is cooperative, anxious, restless. jl7 Pain: Complains of pain in "My whole body on the inside." Pain currently is 10 out of 10 on a pain scale. EENT: No signs and/or symptoms were reported regarding the EENT system. Neuro: Level of Consciousness is awake, alert, obeys commands. Cardiovascular: Patient's skin is warm and dry. Respiratory: Airway is patent Respiratory effort is even, unlabored, Respiratory pattern is regular, symmetrical. GI: No signs and/or symptoms were reported involving the gastrointestinal system. : No signs and/or symptoms were reported regarding the genitourinary system. Derm: Skin is pink, warm \\T\\ dry. Musculoskeletal: No signs and/or symptoms reported regarding the musculoskeletal system. Historical: - Allergies: 18:42 Abilify; jl7 18:42 Promethazine; jl7 - PMHx: 18:42 manic bipolar disorder; jl7 - PSHx: 18:42 None; jl7 - Immunization history:: Adult Immunizations not up to date. - Social history:: Smoking status: Patient uses tobacco products, smokes one-half pack cigarettes per day, Patient uses street drugs, marijuana, Methamphetamine (Meth). - Ebola Screening: : No symptoms or risks identified at this time. Screenin:48 Abuse screen: Denies threats or abuse. Denies injuries from another. Nutritional jl7 screening: No deficits noted. Tuberculosis screening: No symptoms or risk factors identified. Fall Risk IV access (20 points). Total Mares Fall Scale indicates No Risk (0-24 pts). Assessment: 19:15 General: Appears slender, Behavior is anxious. Pain: Denies pain. Neuro: Level of lp1 Consciousness is awake, alert, Oriented to person, place. Cardiovascular: Patient's skin is warm and dry. Respiratory: Respiratory effort is even, unlabored. GI: Abdomen is flat. : No signs and/or symptoms were reported regarding the genitourinary system. EENT: No signs and/or symptoms were reported regarding the EENT system. Derm: Skin is pink, warm \\T\\ dry. Musculoskeletal: Range of motion: intact in all extremities. 19:25 Reassessment: [place] [employer] called to bedside for patient becoming agitated, pacing in room, lp1 yelling incoherently, looking at ceiling; Provider notified; when asked who he was upset with patient states "I'm mad at all the things in my head". 19:35 Reassessment: Patient pulled out 20g IV to L FA at this time. lp1 19:45 Reassessment: PD at bedside; patient continued to be agitated;. lp1 20:13 Reassessment: Patient resting, eyes closed, respirations unlabored; appears to be calm, lp1 PD left bedside at this time. 23:46 Reassessment: Pt resting with eyes closed, respirations even and unlabored, chest ea expansions even and symmetrical. No s/s of pain or discomfort at this time. 02/17 00:54 Reassessment: Pt resting with eyes closed, respirations even and unlabored. Chest ea expansions even and symmetrical. No s/s of pain or discomfort noted at this time. 03:04 Reassessment: Pt resting with eyes closed, respirations even and unlabored, chest ea expansions even and symmetrical. No s/s of pain or discomfort noted at this time. 04:00 Reassessment: Resting with eyes closed, respirations even and unlabored. Chest ea expansions even and symmetrical. No s/s of pain or discomfort noted at this time. 05:15 Reassessment: Patient awake at this time, states "where is my stuff, do the feds have lp1 it??"; Patient reoriented and demonstrates understanding of attempting to find placement at psych facility; Patient back to sleep. 06:24 Reassessment: Patient appears in no apparent distress at this time. Patient and/or lp1 family updated on plan of care and expected duration. Pain level reassessed. Patient resting, eyes closed, respirations unlabored. 07:10 Reassessment: Patient appears in no apparent distress at this time. Patient and/or jb4 family updated on plan of care and expected duration. Pain level reassessed. Pt resting with respirations even and unlabored. 08:30 Reassessment: spoke with Esme from [facility], requesting an exclusionary form be filled sg out and faxed to them so that the pts chart will be complete. 08:34 Reassessment: Patient and/or family updated on plan of care and expected duration. Pain em level reassessed. pt yelling and upset about stomach hurting, pt notified that doctor was in another room with a pt, pt currently calm, provider will be notified as soon as available. 09:00 Reassessment: Patient appears in no apparent distress at this time. pt resting em comfortably at this time with eyes closes, respirations even and unlabored, skin pink warm and dry. 09:21 Reassessment: Patient appears in no apparent distress at this time. [facility] em jewelry sales representative at bedside. 09:27 Reassessment: [facility] at bedside at this time. tw2 10:58 Reassessment: Patient appears in no apparent distress at this time. pt signed em exclusionary form for [facility]. 11:14 Reassessment: Patient appears in no apparent distress at this time. Patient and/or em family updated on plan of care and expected duration. Pain level reassessed. Patient is alert, oriented x 3, equal unlabored respirations, skin warm/dry/pink. 12:00 Reassessment: Patient appears in no apparent distress at this time. Patient and/or em family updated on plan of care and expected duration. Pain level reassessed. Patient is alert, oriented x 3, equal unlabored respirations, skin warm/dry/pink. eating lunch tray, tolerated well. 13:00 Reassessment: Patient appears in no apparent distress at this time. Patient and/or em family updated on plan of care and expected duration. Pain level reassessed. Patient is alert, oriented x 3, equal unlabored respirations, skin warm/dry/pink. 14:56 Reassessment: Patient appears in no apparent distress at this time. Patient and/or em family updated on plan of care and expected duration. Pain level reassessed. Patient is alert, oriented x 3, equal unlabored respirations, skin warm/dry/pink. currently denies HI/SI. 16:36 Reassessment: Patient appears in no apparent distress at this time. Patient and/or em family updated on plan of care and expected duration. Pain level reassessed. Patient is alert, oriented x 3, equal unlabored respirations, skin warm/dry/pink. 17:15 Reassessment: Patient appears in no apparent distress at this time. pt eating dinner em tray at this time. 18:14 Reassessment: Patient appears in no apparent distress at this time. pt request to take em shower, no male staff available to take pt up to the floor, pt given body wipes, wash cloths, towels, deodorant, toothpaste, toothbrush and new gown. 19:14 Reassessment: Patient and/or family updated on plan of care and expected duration. Pain ea level reassessed. Patient is alert, oriented x 3, equal unlabored respirations, skin warm/dry/pink. Patient denies pain at this time. General: Appears in no apparent distress. Behavior is calm, cooperative, appropriate for age. Pain: Denies pain. Neuro: Level of Consciousness is awake, alert, Oriented to person, place, time. Cardiovascular: Patient's skin is warm and dry. Respiratory: Airway is patent Respiratory effort is even, unlabored, Respiratory pattern is regular, symmetrical. GI: No signs and/or symptoms were reported involving the gastrointestinal system. : No signs and/or symptoms were reported regarding the genitourinary system. EENT: No signs and/or symptoms were reported regarding the EENT system. Derm: Skin is pink, warm \\T\\ dry. Musculoskeletal: Circulation, motion, and sensation intact. 22:04 Reassessment: Pt yelling "get me my fucking clothes and my bag I want to get the fuck ea out of here!" Provider attempting to talk to patient. Pt threatened to punch provider. Pt stated " I will slit your throat man!". Security and PD notified. Pt went back to his room. 22:13 Reassessment: PD at bedside. ea 22:21 Reassessment: Patient is alert, oriented x 3, equal unlabored respirations, skin ea warm/dry/pink. Pt detained taken into custody by LEANNE JAMES. Psych: 02/16 19:15 Subjective: Patient's mood is irritable, Delusions are denied, Hallucinations are lp1 auditory, visual, Having thoughts of homicide. Homicidal plan is to Per EMS, patient was shouting that he is going to "slice up his family". Objective: Patient is using poor eye contact, suspicious, Speech is normal, Affect is flat. Interventions: Removed personal items and placed in bag. Patient placed in hospital gown. Searched person for dangerous items. Urine collected and sent for urine drug test. Suicide Risk Assessment: Sad Person Scale: Sex of patient: Male: Score 1 point. Age of patient: Score 1 point if patient 15-34. Depression: Score 0 point if signs of depression are not present. Previous Attempt: Score 0 point if patient has not previously attempted suicide. Substance Abuse: Score 1 point if patient abuses alcohol or drugs. Rational Thinking: Score 1 point if patient is lacking rational thinking. Social Support: Score 1 point if social support is lacking and/or unavailable. Organized Plan: Score 0 if patient did not have an organized plan in place. Relationship: Score 1 point if patient is , , , or for a single male Chronic Sickness: Score 0 point if patient does not have a chronic illness, debilitating, or severe disorder. TOTAL POINTS: If total points are 5-6, proposed clinical action is to strongly consider hospitalization, depending upon confidence in the follow-up arrangement. Implement suicide precautions. Safety Checks: Personal items have been removed. Door is open. Patient uses methamphetamines Last use was 1 days ago. Vital Signs: 18:42 BP 109 / 75; Pulse 111; Resp 16 S; Pulse Ox 96% on R/A; Weight 59.42 kg (R); Height 5 jl7 ft. 6 in. (167.64 cm) (R); Pain 10/10; 19:40 BP 116 / 69; Pulse 109; Resp 16; Pulse Ox 98% on R/A; lp1 20:30 BP 96 / 64; Pulse 101; Resp 18; Pulse Ox 99% on R/A; lp1 02/17 01:26 BP 110 / 71; Pulse 84; Resp 16; Pulse Ox 98% on R/A; lp1 03:16 BP 109 / 70; Pulse 72; Resp 16; Pulse Ox 99% on R/A; lp1 06:00 BP 115 / 84; Pulse 69; Resp 16; Pulse Ox 99% on R/A; lp1 10:00 BP 102 / 76; Pulse 72; Resp 15; Temp 97.5(O); Pulse Ox 98% on R/A; mh5 14:59 BP 105 / 74; Pulse 68; Resp 16; Pulse Ox 100% ; Pain 0/10; ms 18:07 BP 128 / 84; Pulse 91; Resp 18; Pulse Ox 97% ; vs1 02/16 18:42 Body Mass Index 21.14 (59.42 kg, 167.64 cm) jl7 ED Course: 02/16 18:37 Patient arrived in ED. jl7 18:41 Triage completed. jl7 18:42 Arm band placed on right wrist. jl7 18:44 Stone Mann NP is PHCP. pm1 18:44 Bladimir Moore MD is Attending Physician. pm1 18:48 Patient has correct armband on for positive identification. Bed in low position. Call jl light in reach. Side rails up X 1. Pulse ox on. NIBP on. 19:15 Inserted saline lock: 20 gauge in left forearm, using aseptic technique. Blood lp1 collected. By tech. Bre 19:21 Yaa Montanez, RN is Primary Nurse. lp1 19:30 Safety Checks: Personal items have been removed. The door is open or patient has been lp1 placed in a hallway bed/chair. Sitter present at this time. 19:45 Appears agitated. Safety Checks: Personal items have been removed. The door is open or lp1 patient has been placed in a hallway bed/chair. Sitter present at this time. 20:00 Safety Checks: Personal items have been removed. The door is open or patient has been lp1 placed in a hallway bed/chair. Sitter present at this time. 20:00 Patient pulled IV out. lp1 20:15 Safety Checks: Personal items have been removed. The door is open or patient has been lp1 placed in a hallway bed/chair. Sitter present at this time. 20:30 Appears to be sleeping. Safety Checks: Personal items have been removed. The door is lp1 open or patient has been placed in a hallway bed/chair. Sitter present at this time. 20:40 Inserted saline lock: 20 gauge in right forearm, using aseptic technique. lp1 20:41 EKG done, by ED staff. lp1 20:45 Appears to be sleeping. Safety Checks: Personal items have been removed. The door is lp1 open or patient has been placed in a hallway bed/chair. Sitter present at this time. 21:00 Safety Checks: Personal items have been removed. The door is open or patient has been ea placed in a hallway bed/chair. Sitter present at this time. 21:15 Safety Checks: Personal items have been removed. The door is open or patient has been ea placed in a hallway bed/chair. Sitter present at this time. 21:30 Safety Checks: Personal items have been removed. The door is open or patient has been ea placed in a hallway bed/chair. Sitter present at this time. 21:45 Safety Checks: Personal items have been removed. The door is open or patient has been ea placed in a hallway bed/chair. Sitter present at this time. 22:00 Safety Checks: Personal items have been removed. The door is open or patient has been ea placed in a hallway bed/chair. Sitter present at this time. 22:15 Safety Checks: Personal items have been removed. The door is open or patient has been ea placed in a hallway bed/chair. Sitter present at this time. 22:30 Safety Checks: Personal items have been removed. The door is open or patient has been ea placed in a hallway bed/chair. Sitter present at this time. 22:45 Safety Checks: Personal items have been removed. The door is open or patient has been ea placed in a hallway bed/chair. Sitter present at this time. 23:00 Safety Checks: Personal items have been removed. The door is open or patient has been ea placed in a hallway bed/chair. Sitter present at this time. 23:15 Safety Checks: Personal items have been removed. The door is open or patient has been ea placed in a hallway bed/chair. Sitter present at this time. 23:30 Safety Checks: Personal items have been removed. The door is open or patient has been ea placed in a hallway bed/chair. Sitter present at this time. 23:45 Safety Checks: Personal items have been removed. The door is open or patient has been ea placed in a hallway bed/chair. Sitter present at this time. 02/17 00:00 Safety Checks: Personal items have been removed. The door is open or patient has been ea placed in a hallway bed/chair. Sitter present at this time. 00:15 Safety Checks: Personal items have been removed. The door is open or patient has been ea placed in a hallway bed/chair. Sitter present at this time. 00:30 Safety Checks: Personal items have been removed. The door is open or patient has been ea placed in a hallway bed/chair. Sitter present at this time. 00:45 Safety Checks: Personal items have been removed. The door is open or patient has been ea placed in a hallway bed/chair. Sitter present at this time. 01:00 Safety Checks: Personal items have been removed. The door is open or patient has been ea placed in a hallway bed/chair. Sitter present at this time. 01:15 Appears to be sleeping. Safety Checks: Personal items have been removed. The door is lp1 open or patient has been placed in a hallway bed/chair. Sitter present at this time. 01:30 Safety Checks: Personal items have been removed. The door is open or patient has been ea placed in a hallway bed/chair. Sitter present at this time. 01:31 No provider procedures requiring assistance completed. lp1 01:45 Safety Checks: Personal items have been removed. The door is open or patient has been ea placed in a hallway bed/chair. Sitter present at this time. 02:00 Safety Checks: Personal items have been removed. The door is open or patient has been ea placed in a hallway bed/chair. Sitter present at this time. 02:15 Safety Checks: Personal items have been removed. The door is open or patient has been ea placed in a hallway bed/chair. Sitter present at this time. 02:30 Safety Checks: Personal items have been removed. The door is open or patient has been ea placed in a hallway bed/chair. Sitter present at this time. 02:45 Safety Checks: Personal items have been removed. The door is open or patient has been ea placed in a hallway bed/chair. Sitter present at this time. 03:00 Safety Checks: Personal items have been removed. The door is open or patient has been ea placed in a hallway bed/chair. Sitter present at this time. 03:15 Safety Checks: Personal items have been removed. The door is open or patient has been ea placed in a hallway bed/chair. Sitter present at this time. 03:30 Safety Checks: Personal items have been removed. The door is open or patient has been ea placed in a hallway bed/chair. Sitter present at this time. 03:45 Safety Checks: Personal items have been removed. The door is open or patient has been ea placed in a hallway bed/chair. Sitter present at this time. 04:00 Safety Checks: Personal items have been removed. The door is open or patient has been ea placed in a hallway bed/chair. Sitter present at this time. 04:15 Safety Checks: Personal items have been removed. The door is open or patient has been ea placed in a hallway bed/chair. Sitter present at this time. 04:30 Safety Checks: Personal items have been removed. The door is open or patient has been ea placed in a hallway bed/chair. Sitter present at this time. 04:45 Safety Checks: Personal items have been removed. The door is open or patient has been ea placed in a hallway bed/chair. Sitter present at this time. 05:00 Safety Checks: Personal items have been removed. The door is open or patient has been ea placed in a hallway bed/chair. Sitter present at this time. 05:15 Safety Checks: Personal items have been removed. The door is open or patient has been lp1 placed in a hallway bed/chair. Sitter present at this time. 05:30 Safety Checks: Personal items have been removed. The door is open or patient has been lp1 placed in a hallway bed/chair. Sitter present at this time. 05:45 Safety Checks: Personal items have been removed. The door is open or patient has been lp1 placed in a hallway bed/chair. Sitter present at this time. 06:00 Safety Checks: Personal items have been removed. The door is open or patient has been lp1 placed in a hallway bed/chair. Sitter present at this time. 06:15 Appears to be sleeping. Safety Checks: Personal items have been removed. The door is lp1 open or patient has been placed in a hallway bed/chair. Sitter present at this time. 06:30 Safety Checks: Personal items have been removed. The door is open or patient has been ea placed in a hallway bed/chair. Sitter present at this time. 07:00 Safety checks: Items removed: yes. Door open/sign placed on door: yes. Family/friend ag present: no. Sitter present: Yes. 07:03 Rochelle from [facility] called and said she will be here between 930 and 1000. eb 07:15 Safety checks: Items removed: yes. Door open/sign placed on door: yes. Family/friend ag present: no. Sitter present: Yes. 07:30 Safety checks: Items removed: yes. Door open/sign placed on door: yes. Family/friend ag present: no. Sitter present: Yes. 08:20 Report given to LVN. Ariel jb4 08:26 [facility] called and asked for the exclusionary to be filled out and faxed. mb4 08:28 exclusionary form faxed to [facility] at [phone]. [facility] 08:30 Safety checks: Items removed: yes. Door open/sign placed on door: yes. Family/friend mh5 present: no. Sitter present: Yes. 08:45 Safety checks: Items removed: yes. Door open/sign placed on door: yes. Family/friend mh5 present: no. Sitter present: Yes. 09:00 Safety checks: Items removed: yes. Door open/sign placed on door: yes. Family/friend mh5 present: no. Sitter present: Yes. 09:15 Safety checks: Items removed: yes. Door open/sign placed on door: yes. Family/friend mh5 present: no. Sitter present: Yes. 09:16 Rochelle from [facility] here to screen patient for placement. 4 09:30 Safety checks: Items removed: yes. Door open/sign placed on door: yes. Family/friend mh5 present: no. Sitter present: Yes. 09:45 Safety checks: Items removed: yes. Door open/sign placed on door: yes. Family/friend mh5 present: no. Sitter present: Yes. 10:00 Safety checks: Items removed: yes. Door open/sign placed on door: yes. Family/friend mh5 present: no. Sitter present: Yes. 10:15 Safety checks: Items removed: yes. Door open/sign placed on door: yes. Family/friend mh5 present: no. Sitter present: Yes. 10:24 Transfer to [facility] initiated with Rebecca. 4 10:30 Safety checks: Items removed: yes. Door open/sign placed on door: yes. Family/friend mh5 present: no. Sitter present: Yes. 11:00 Safety checks: Items removed: yes. Door open/sign placed on door: yes. Family/friend mh5 present: no. Sitter present: Yes. 11:01 Rebecca from [facility] called; requested lab results to be faxed. mb4 11:05 Lab results faxed to [facility]. 4 11:05 Safety checks: Items removed: Other: pt has shoes and glasses with him in room Door ms open/sign placed on door: yes. no. Family/friend present: Sitter present: Yes. 11:05 Safety checks: Items removed: Other: pt shoes and socks removed from room. ms 11:15 Safety checks: Items removed: yes. Door open/sign placed on door: yes. Family/friend ms present: no. Sitter present: Yes. 11:30 Safety checks: Items removed: yes. Door open/sign placed on door: yes. Family/friend ms present: no. Sitter present: Yes. 11:45 Safety checks: Items removed: yes. Door open/sign placed on door: yes. Family/friend ms present: no. Sitter present: Yes. 12:00 Safety checks: Items removed: yes. Door open/sign placed on door: yes. Family/friend ms present: no. Sitter present: Yes. 12:00 Diet: Patient given a regular meal tray. mh5 12:15 Safety checks: Items removed: yes. Door open/sign placed on door: yes. Family/friend ms present: no. Sitter present: Yes. 12:41 Consuelo called from [facility] to decline the patient in transfer due to the patient not eb meeting their patient criteria. 13:00 Safety checks: Items removed: yes. Door open/sign placed on door: yes. Family/friend mh5 present: no. Sitter present: Yes. 13:15 Safety checks: Items removed: yes. Door open/sign placed on door: yes. Family/friend mh5 present: no. Sitter present: Yes. 13:30 Safety checks: Items removed: yes. Door open/sign placed on door: yes. Family/friend ms present: no. Sitter present: Yes. 13:45 Safety checks: Items removed: yes. Door open/sign placed on door: yes. Family/friend ms present: no. Sitter present: Yes. 14:00 Safety checks: Items removed: yes. Door open/sign placed on door: yes. Family/friend ms present: no. Sitter present: Yes. 14:15 Safety checks: Items removed: yes. Door open/sign placed on door: yes. Family/friend ms present: no. Sitter present: Yes. 14:23 Safety checks: Items removed: yes. Door open/sign placed on door: yes. Family/friend ms present: no. Sitter present: Yes. 14:30 Safety checks: Items removed: yes. Door open/sign placed on door: yes. Family/friend mh5 present: no. Sitter present: Yes. 14:45 Safety checks: Items removed: yes. Door open/sign placed on door: yes. Family/friend ms present: no. Sitter present: Yes. 15:00 Safety checks: Items removed: yes. Door open/sign placed on door: yes. Family/friend ms present: no. Sitter present: Yes. 15:15 Safety checks: Items removed: yes. Door open/sign placed on door: yes. Family/friend ms present: no. Sitter present: Yes. 15:30 Safety checks: Items removed: yes. Door open/sign placed on door: yes. Family/friend vs1 present: no. Sitter present: Yes. 15:45 Safety checks: Items removed: yes. Door open/sign placed on door: yes. Family/friend vs1 present: no. Sitter present: Yes. Safety checks: Items removed: yes. Door open/sign placed on door: yes. Family/friend present: no. Sitter present:. 16:00 Safety checks: Items removed: yes. Door open/sign placed on door: yes. Family/friend vs1 present: no. Sitter present: Yes. Safety checks: Items removed: yes. Door open/sign placed on door: yes. Family/friend present: no. Sitter present: Yes. 16:15 Safety checks: Items removed: yes. Door open/sign placed on door: yes. Family/friend vs1 present: no. Sitter present: Yes. 16:30 Safety checks: Items removed: yes. Door open/sign placed on door: yes. Family/friend vs1 present: no. Sitter present: Yes. 16:45 Safety checks: Items removed: yes. Door open/sign placed on door: yes. Family/friend vs1 present: no. Sitter present: Yes. 17:00 Safety checks: Items removed: yes. Door open/sign placed on door: yes. Family/friend vs1 present: no. Sitter present: Yes. 17:15 Safety checks: Items removed: yes. Door open/sign placed on door: yes. Family/friend vs1 present: no. Sitter present: Yes. 17:30 Safety checks: Items removed: yes. Door open/sign placed on door: yes. Family/friend vs1 present: no. Sitter present: Yes. 17:45 Safety checks: Items removed: yes. Door open/sign placed on door: yes. Family/friend vs1 present: no. Sitter present: Yes. 18:00 Safety checks: Items removed: yes. Door open/sign placed on door: yes. Family/friend mh5 present: no. Sitter present: Yes. 18:15 Safety checks: Items removed: yes. Door open/sign placed on door: yes. Family/friend vs1 present: no. Sitter present: Yes. 18:29 Safety checks: Items removed: yes. Door open/sign placed on door: yes. Family/friend vs1 present: no. Sitter present: Yes. 18:45 Safety checks: Items removed: Door open/sign placed on door: yes. Family/friend vs1 present: no. Sitter present: Yes. 19:00 Safety checks: Items removed: Door open/sign placed on door: yes. Sitter present:. cs8 Sitter at bedside. 19:15 Safety checks: Items removed: yes. Door open/sign placed on door: yes. Family/friend cs8 present: no. Sitter present: Yes. Allergy band placed. Fall risk band placed. Side rails up X 1. 19:30 Safety checks: Items removed: yes. Door open/sign placed on door: yes. Family/friend cs8 present: no. Sitter present: Yes. Placed in gown. Bed in low position. Side rails up X 1. 19:45 Safety checks: Items removed: yes. Door open/sign placed on door: yes. Family/friend cs8 present: no. Sitter present: Yes. Placed in gown. Bed in low position. Side rails up X 1. Sitter at bedside. 20:00 Safety checks: Items removed: yes. Door open/sign placed on door: yes. Sitter present: cs8 Yes. Placed in gown. Bed in low position. Side rails up X 1. 20:15 Safety checks: Items removed: yes. Door open/sign placed on door: yes. Sitter present: cs8 Yes. Placed in gown. Bed in low position. Side rails up X 1. Diet: Patient given snack. 20:30 Safety checks: Items removed: yes. Door open/sign placed on door: yes. Sitter present: cs8 Yes. Placed in gown. Side rails up X 1. Assisted with urinal. 20:45 Safety checks: Items removed: yes. Door open/sign placed on door: yes. Sitter present: cs8 Yes. Bed in low position. Side rails up X 1. Sitter at bedside. 21:00 Safety checks: Items removed: yes. Door open/sign placed on door: yes. Sitter present: cs8 Yes. Call light in reach. Side rails up X 1. 21:15 Safety checks: Items removed: yes. Door open/sign placed on door: yes. Sitter present: cs8 Yes. Sitter at bedside. 21:30 Safety checks: Items removed: yes. Door open/sign placed on door: yes. Bed in low cs8 position. Side rails up X 1. Sitter at bedside. 21:45 Safety checks: Items removed: yes. Door open/sign placed on door: yes. Sitter present: cs8 Yes. Diet: Patient given snack. 22:00 Safety checks: Items removed: yes. Door open/sign placed on door: yes. Sitter present: cs8 Yes. 22:15 Safety checks: Items removed: yes. Door open/sign placed on door: yes. Sitter present: cs8 Yes. 22:18 IV discontinued, intact, bleeding controlled, No redness/swelling at site. Pressure ea dressing applied. 02/18 01:17 PHCP role handed off by Stone Mann NP [email or web address] 01:17 Hector Draper PA is PHCP. [email or web address] Administered Medications: 02/16 19:41 Drug: Benadryl 25 mg Route: IVP; Site: left forearm; lp1 20:41 Follow up: Response: Marked relief of symptoms lp1 19:41 Drug: HALdol 5 mg Route: IVP; Site: left forearm; lp1 20:41 Follow up: Response: Marked relief of symptoms lp1 19:41 Drug: Ativan 2 mg Route: IVP; Site: left forearm; lp1 20:41 Follow up: Response: Marked relief of symptoms lp1 19:42 Drug: NS 0.9% 1000 ml Route: IV; Rate: 1 bolus; Site: left forearm; lp1 21:30 Follow up: IV Status: Completed infusion; IV Intake: 1000ml lp1 02/17 08:50 Drug: Pepcid 20 mg Route: IVP; Site: left forearm; iw 09:34 Follow up: Response: No adverse reaction; Pain is decreased em 15:06 Drug: Nicotine 21 mg/24 hr 1 patches Route: Transdermal; Site: anterior chest wall; em 22:12 Drug: HALdol 5 mg Route: IVP; Site: right antecubital; ea 22:27 Follow up: Response: No adverse reaction ea 22:12 Drug: Benadryl 50 mg Route: IVP; Site: right antecubital; ea 22:27 Follow up: Response: No adverse reaction ea Intake: 02/16 21:30 IV: 1000ml; Total: 1000ml. lp1 Outcome: 08/23 22:21 Discharge instructions given to patient, police, Instructed on discharge instructions, ea follow up and referral plans. Demonstrated understanding of instructions, follow-up care. 22:21 Patient left the ED. ea 22:30 Discharged to Law Enforcement ea 22:30 Condition: unchanged 02/18 01:21 Discharge ordered by MD. vital Signatures: Jovon Watt, RN RN sg Marvin, Ariel, RN SANE RN SANE Clau Vizcaino RN Patti Chou ms Tarik, Yaa, RN RN lp1 Hector Draper PA PA jr8 Dottie Tony Patrick, NILE ADMINISTRATIVE PROJECT COORDINATOR pm1 Mamie Brown RN RN 2 Mukund Bonner RN RN Patti Roth [facility] Ana Francis RN YOHANNES jl7 Khadra Davalos RN RN ea Botello, Elizabeth eb Sundriyal, Christina 8 Lucia Blanco4 Gertrudis Hernandez [facility] Corrections: (The following items were deleted from the chart) 02/16 19:51 19:50 Reassessment: PD at bedside; patient continued to be agitated; 1 1 19:51 19:50 Reassessment: Patient pulled out 20g IV to L FA at this time 1 [facility] 20:14 19:50 Reassessment: PD at bedside; patient continued to be agitated; 1 1 20:45 19:15 Safety Checks: 1 1 02/17 01:36 02/16 19:35 Reassessment: Patient pulled out 20g IV to L FA at this time 1 1 02/17 03:07 02/16 19:15 Subjective: Patient's mood is irritable, Delusions are denied, lp1 Hallucinations are auditory, visual, 1 02/17 10:11 10:06 BP 102 / 76; Pulse 72bpm; Resp 15bpm; Pulse Ox 98% RA; Temp 97.5F Oral; mh5 mh5 11:17 11:11 Safety checks: Items removed: Other: pt shoes and socks removed from room ms ms 13:48 13:24 Safety checks: ms ms 22:24 22:21 Reassessment: Patient is alert, oriented x 3, equal unlabored respirations, skin ea warm/dry/pink. Pt detained taken by LEANNE CLAY ea 02/18 01:26 01:24 Patient left the ED. nini terrazas
[2018-02-18 01:41] VITALS: TEMP 97.5
[2018-02-18 01:43] VITALS: BP 128/84; O2SAT 97
== END 2018-02-18 01:24 ==
LOC: ER 18:23
DX: F23 Brief psychotic disorder (principal); F31.9 Bipolar disorder, unspecified; F17.210 Nicotine dependence, cigarettes, uncomplicated; Z88.8 Allergy status to other drugs, medicaments and biological substances
CPT/HCPCS: 36415; 80048; 80076; 80307; 80320; 80329; 81003; 85025; 85610; 85730; 93005; 99285; J1630; J7030

== ENCOUNTER 2019-01-05 01:17 | Emergency (ER) | payer SELFPAY ==
--- OUTSIDE RECORDS SUMMARY | 2019-01-05 01:19 | XMS REPORT ---
:1990 [facility] [address] [place] [address] Care Team Providers Name Role Phone Unavailable Unavailable Unavailable Problems This patient has no known problems. Allergies, Adverse Reactions, Alerts This patient has no known allergies or adverse reactions. Medications This patient has no known medications.
--- NOTE | 2019-01-05 01:40 | ER ---
Nurse's Notes [facility] Name: Carlos Walker Age: 28 yrs Sex: Male : 1990 Arrival Date: 01/05/2019 Time: 01:18 Bed 7 Private MD: Diagnosis: Bipolar disorder Presentation: 01/05 01:23 Presenting complaint: EMS states: Pt picked up walking reports he wants a psych ea evaluation due to feeling depressed, pt reports the [employer] did not allow him back in and he is tired of living in the streets. Pt denies SI at this time. Transition of care: patient was not received from another setting of care. Onset of symptoms was January 05, 2019. Risk Assessment: Do you want to hurt yourself or someone else? Patient reports no desire to harm self or others. Initial Sepsis Screen: Does the patient meet any 2 criteria? No. Patient's initial sepsis screen is negative. Does the patient have a suspected source of infection? No. Patient's initial sepsis screen is negative. Care prior to arrival: None. 01:23 Method Of Arrival: EMS: [facility] :23 Acuity: EDD 2 ea Historical: - Allergies: 01:29 Abilify; ea 01:29 Promethazine; ea - Home Meds: :29 None [Active]; ea - PMHx: 01:29 manic bipolar disorder; ea - PSHx: 01:29 None; ea - Immunization history:: Adult Immunizations up to date. - Social history:: Smoking status: Patient uses tobacco products, smokes one pack cigarettes per day. Patient uses IV drugs, amphetamines, Patient/guardian denies using alcohol, street drugs, The patient lives with family. - Ebola Screening: : No symptoms or risks identified at this time. - Family history:: not pertinent. Screenin:27 Abuse screen: Denies threats or abuse. Nutritional screening: No deficits noted. ea Tuberculosis screening: No symptoms or risk factors identified. Fall Risk None identified. Assessment: 01:33 General: Appears in no apparent distress. Behavior is cooperative. Pain: Complains of ea pain in right arm and left leg. Neuro: Level of Consciousness is awake, alert, obeys commands, Oriented to person, place, time, situation. Cardiovascular: Patient's skin is warm and dry. Respiratory: Airway is patent Respiratory effort is even, unlabored, Respiratory pattern is regular, symmetrical. GI: No signs and/or symptoms were reported involving the gastrointestinal system. : No signs and/or symptoms were reported regarding the genitourinary system. Derm: Skin is dry, Skin is normal, Skin temperature is warm. 02:50 Reassessment: Pt awaiting for transportation. Reassessment: Patient and/or family ea updated on plan of care and expected duration. Pain level reassessed. Patient is alert, oriented x 3, equal unlabored respirations, skin warm/dry/pink. Discharge instruction given to patient, verbalized the understanding of instruction. Pt awaiting on transportation. 03:36 Reassessment: Patient and/or family updated on plan of care and expected duration. Pain ea level reassessed. Pt resting wit eyes closed. Respirations even and unlabored. Pt awaiting for transportation. 04:41 Reassessment: Patient and/or family updated on plan of care and expected duration. Pain ea level reassessed. Patient is alert, oriented x 3, equal unlabored respirations, skin warm/dry/pink. Pt resting with eyes closed. Respirations even and unlabored. Chest expansions even and symmetrical. No s/s of pain or discomfort noted at this time. Pt awaiting transportation. 05:48 Reassessment: Patient and/or family updated on plan of care and expected duration. Pain ea level reassessed. Patient is alert, oriented x 3, equal unlabored respirations, skin warm/dry/pink. Repeated discharge instructions, pt verbalized the understanding of instruction. Pt left ED ambulatory, tolerating well. Patient denies pain at this time. Psych: 01:30 Subjective: Patient's mood is sad, Delusions are denied, Hallucinations are denied ea Having thoughts of denies homicidal and suicidal thoughts. Objective: Patient is cooperative. Interventions: Patient placed in hospital gown. Urine collected and sent for urine drug test. Suicide Risk Assessment: Sad Person Scale: Sex of patient: Male: Score 1 point. Age of patient: Score 1 point if patient 15-34. Depression: Score 1 point if signs of depression are present. Previous Attempt: Score 0 point if patient has not previously attempted suicide. Substance Abuse: Score 1 point if patient abuses alcohol or drugs. Rational Thinking: Score 0 point if patient has rational thinking. Social Support: Score 1 point if social support is lacking and/or unavailable. Organized Plan: Score 0 if patient did not have an organized plan in place. Relationship: Score 1 point if patient is , , , or for a single male Chronic Sickness: Score 0 point if patient does not have a chronic illness, debilitating, or severe disorder. Patient uses methamphetamines Last use was 24 hours ago. Commitment: Patient will be a voluntary commitment. 01:30 Safety Checks: Pt denies suicidal ideations and homicidal ideations. ea Vital Signs: 01:29 BP 133 / 93; Pulse 88; Resp 18; Temp 98.7(O); Pulse Ox 100% ; Weight 68.95 kg; Height 5 ea ft. 5 in. (165.10 cm); Pain 0/10; 02:18 BP 146 / 96; Pulse 84; Resp 18; Pulse Ox 100% on R/A; ea 03:00 BP 109 / 49; Pulse 83; Resp 18; Pulse Ox 100% ; ea 04:44 BP 113 / 59; Pulse 97; Resp 18; Pulse Ox 100% ; ea 05:30 BP 128 / 92; Pulse 80; Resp 18; Pulse Ox 99% ; ea 01:29 Body Mass Index 25.29 (68.95 kg, 165.10 cm) ea ED Course: 01:18 Patient arrived in ED. am2 01:18 Jairo Kraft MD is Attending Physician. ma2 01:23 Khadra Davalos, YOHANNES is Primary Nurse. ea 01:27 Triage completed. ea 01:30 Patient has correct armband on for positive identification. Placed in gown. Bed in low ea position. Call light in reach. Side rails up X2. 01:32 Arm band placed on right wrist. Patient placed in an exam room, on a stretcher, on ea pulse oximetry. 05:49 No provider procedures requiring assistance completed. Patient did not have IV access ea during this emergency room visit. Administered Medications: No medications were administered Outcome: 01:39 Discharge ordered by . ma2 02:50 Discharge instructions given to patient, Instructed on discharge instructions, follow ea up and referral plans. medication usage, Demonstrated understanding of instructions, follow-up care, medications, Prescriptions given X 1. 05:49 Discharged to home ambulatory. ea 05:51 Condition: stable ea 05:52 Patient left the ED. ea Signatures: Katie White am2 Khadra Davalos RN RN Jairo Mayo MD MD ma2 Corrections: (The following items were deleted from the chart) 03:40 02:50 Reassessment: Patient and/or family updated on plan of care and expected ea duration. Pain level reassessed. Patient is alert, oriented x 3, equal unlabored respirations, skin warm/dry/pink. ea
--- NOTE | 2019-01-05 01:40 | EDPHYS ---
Physician Documentation [facility] Name: Carlos Walker Age: 28 yrs Sex: Male : 1990 Arrival Date: 01/05/2019 Time: 01:18 Bed 7 Private MD: ED Physician Jairo Kraft HPI: 01/05 01:37 This 28 yrs old Male presents to ER via EMS with complaints of Psych Problem. ma2 01:37 The patient presents to the emergency department with anxiety. Onset: The ma2 symptoms/episode began/occurred gradually, 2 day(s) ago. Associated signs and symptoms: Pertinent negatives: anxiety, delusions, headache, night sweats, tremor, no si or hi . Severity of symptoms: At their worst the symptoms were mild in the emergency department the symptoms are unchanged. The patient has not experienced similar symptoms in the past. Historical: - Allergies: : Abilify; ea 01:29 Promethazine; ea - Home Meds: : None [Active]; ea - PMHx: :29 manic bipolar disorder; ea - PSHx: :29 None; ea - Immunization history:: Adult Immunizations up to date. - Social history:: Smoking status: Patient uses tobacco products, smokes one pack cigarettes per day. Patient uses IV drugs, amphetamines, Patient/guardian denies using alcohol, street drugs, The patient lives with family. - Ebola Screening: : No symptoms or risks identified at this time. - Family history:: not pertinent. ROS: 01:37 Constitutional: Negative for fever, chills, and weight loss. ma2 01:37 All other systems are negative. Exam: 01:37 Constitutional: This is a well developed, well nourished patient who is awake, alert, ma2 and in no acute distress. Head/Face: Normocephalic, atraumatic. Eyes: Pupils equal round and reactive to light, extra-ocular motions intact. Lids and lashes normal. Conjunctiva and sclera are non-icteric and not injected. Cornea within normal limits. Periorbital areas with no swelling, redness, or edema. Neck: Trachea midline, no thyromegaly or masses palpated, and no cervical lymphadenopathy. Supple, full range of motion without nuchal rigidity, or vertebral point tenderness. No Meningismus. Chest/axilla: Normal chest wall appearance and motion. Nontender with no deformity. No lesions are appreciated. Cardiovascular: Regular rate and rhythm with a normal S1 and S2. No gallops, murmurs, or rubs. Normal PMI, no JVD. No pulse deficits. Respiratory: Lungs have equal breath sounds bilaterally, clear to auscultation and percussion. No rales, rhonchi or wheezes noted. No increased work of breathing, no retractions or nasal flaring. Abdomen/GI: Soft, non-tender, with normal bowel sounds. No distension or tympany. No guarding or rebound. No evidence of tenderness throughout. MS/ Extremity: Pulses equal, no cyanosis. Neurovascular intact. Full, normal range of motion. Neuro: Awake and alert, GCS 15, oriented to person, place, time, and situation. Cranial nerves II-XII grossly intact. Motor strength 5/5 in all extremities. Sensory grossly intact. Cerebellar exam normal. Normal gait. Psych: Awake, alert, with orientation to person, place and time. Behavior, mood, and affect are within normal limits. Vital Signs: 01:29 BP 133 / 93; Pulse 88; Resp 18; Temp 98.7(O); Pulse Ox 100% ; Weight 68.95 kg; Height 5 ea ft. 5 in. (165.10 cm); Pain 0/10; 02:18 BP 146 / 96; Pulse 84; Resp 18; Pulse Ox 100% on R/A; ea 03:00 BP 109 / 49; Pulse 83; Resp 18; Pulse Ox 100% ; ea 04:44 BP 113 / 59; Pulse 97; Resp 18; Pulse Ox 100% ; ea 05:30 BP 128 / 92; Pulse 80; Resp 18; Pulse Ox 99% ; ea 01:29 Body Mass Index 25.29 (68.95 kg, 165.10 cm) ea MDM: 01:18 Patient medically screened. ma2 01:37 Differential diagnosis: drug withdrawal. depression, psychosis secondary to ma2 non-compliance, no si or hi or avh. Data reviewed: vital signs, nurses notes. Counseling: I had a detailed discussion with the patient and/or guardian regarding: the historical points, exam findings, and any diagnostic results supporting the discharge/admit diagnosis, the presence of at least one elevated blood pressure reading (>120/80) during this emergency department visit, the need for outpatient follow up. 01/05 02:11 Order name: Urine Dipstick--Ancillary (enter results) ar5 Administered Medications: No medications were administered Disposition: 01/05/19 01:39 Discharged to Home. Impression: Bipolar disorder. - Condition is Stable. - Discharge Instructions: Bipolar Disorder. - Prescriptions for Depakote 250 mg Oral Tablet, Delayed Release (E.C.) - take 1 tablet by ORAL route every 12 hours; 30 tablet. - Medication Reconciliation Form, Thank You Letter, Antibiotic Education, Prescription Opioid Use form. - Follow up: Private Physician; When: Tomorrow; Reason: Continuance of care. Signatures: Dispatcher [employer] Khadar Salazar RN RN ea Alzahri, Mohammad, MD MD ma2 Corrections: (The following items were deleted from the chart) 05:52 01:39 01/05/2019 01:39 Discharged to Home. Impression: Bipolar disorder. Condition is ea Stable. Forms are Medication Reconciliation Form, Thank You Letter, Antibiotic Education, Prescription Opioid Use. Follow up: Private Physician; When: Tomorrow; Reason: Continuance of care. ma2
[2019-01-05 03:32] LABS: Urine Blood NEGATIVE (NEG); Urine Glucose NEGATIVE (NEG); Urine Protein NEGATIVE (NEG); Urine Specific Gravity 1.015 (1.005-1.030); Urine pH 5.5 (5.0-7.0)
[2019-01-05 06:05] VITALS: TEMP 98.7
[2019-01-05 06:10] VITALS: BP 128/92; O2SAT 99
== END 2019-01-05 05:52 | disposition home or self-care (01) ==
LOC: ER 01:17
DX: F31.9 Bipolar disorder, unspecified (principal); F17.210 Nicotine dependence, cigarettes, uncomplicated; Z88.8 Allergy status to other drugs, medicaments and biological substances
CPT/HCPCS: 81003; 99284

== ENCOUNTER 2019-01-16 20:55 | Observation (INO) | payer SELFPAY ==
--- OUTSIDE RECORDS SUMMARY | 2019-01-16 20:57 | XMS REPORT ---
:1990 [facility] Address [address] [place] [address] Care Team Providers Name Role Phone Unavailable Unavailable Unavailable Problems This patient has no known problems. Allergies, Adverse Reactions, Alerts This patient has no known allergies or adverse reactions. Medications This patient has no known medications.
[2019-01-16] MEDS ORDERED: NA CHLORIDE 0.9% 2,000 ML ONE (21:36)
[2019-01-16 21:39] LABS: Absolute Lymphocytes (CBC) 2.8 K/uL (0.7-4.9); Basophils % 0.8 % (0-1.3); Hematocrit 38.1 % (39.6-49.0); Lymphocytes % 30.9 % (15.3-44.8); MPV 9.9 fL (7.6-11.3); RBC Red Blood Cell Count 4.12 M/uL (4.33-5.43)
[2019-01-16 21:46] LABS: Protime INR 0.89
--- NOTE | 2019-01-16 22:03 | RAD REPORT ---
EXAM DESCRIPTION: US - Scrotum Testicles - 01/16/2019 9:48 pm CLINICAL HISTORY: scrotum pain COMPARISON: No comparisons FINDINGS: The right testicle 4.3 x 2.6 x 2.6 cm. No intratesticular masses or evidence of testicular torsion. The left testicle 4.3 x 2.9 x 2.2 cm. No intratesticular masses or evidence of testicular torsion. Both epididymides are normal in size and appearance. No pathologic fluid collections. IMPRESSION: Unremarkable study.
[2019-01-16 22:19] LABS: Barbiturates NEGATIVE (NEGATIVE); Benzodiazepines NEGATIVE (NEGATIVE); Cocaine NEGATIVE (NEGATIVE); METHAMPHETAM POSITIVE (NEGATIVE); Methadone NEGATIVE (NEGATIVE); Opiates NEGATIVE (NEGATIVE); Phencyclidine NEGATIVE (NEGATIVE); THC Cannibis POSITIVE (NEGATIVE)
[2019-01-16 22:29] LABS: ALT/SGPT 66 U/L (12-78); AST/SGOT 199 U/L (15-37); Albumin 3.6 g/dL (3.4-5.0); Alkaline Phosphatase 98 U/L (45-117); BUN Blood Urea Nitrogen 17 mg/dL (7-18); Bicarbonate 29 mmol/L (21-32); Bilirubin Direct 0.1 mg/dL (0-0.2); Bilirubin Total 0.3 mg/dL (0.2-1.0); Glucose Level 83 mg/dL (74-106); Lipase 129 U/L (73-393); Potassium 3.6 mmol/L (3.5-5.1); Protein, Total 6.5 g/dL (6.4-8.2); Sodium Level 141 mmol/L (136-145)
[2019-01-16 22:34] LABS: CKMB Creatine Kinase MB 16.3 ng/mL (0.3-3.6); Creatine Phosphokinase 11518 U/L (39-308)
--- NOTE | 2019-01-16 22:51 | RAD REPORT ---
EXAM DESCRIPTION: RAD - Chest Single View - 01/16/2019 10:14 pm CLINICAL HISTORY: PAIN Chest pain. COMPARISON: <Comparisons> FINDINGS: Portable technique limits examination quality. The lungs are grossly clear. The heart is normal in size. No displaced fractures. IMPRESSION: No acute intrathoracic process suspected.
[2019-01-16] MEDS ORDERED: NA CHLORIDE 0.9% 1,000 ML ONE (22:56)
--- NOTE | 2019-01-16 22:59 | ER ---
Nurse's Notes [facility] Name: Carlos Walker Age: 28 yrs Sex: Male : 1990 Arrival Date: 01/16/2019 Time: 21:02 Bed 20 Private MD: Diagnosis: Rhabdomyolysis Presentation: 01/16 20:54 Presenting complaint: EMS states: Pt reports MILLER leg pain, neck pain, left jaw pain, jb4 left testicle and penile pain, back pain, and is hearing voices when he eats. Transition of care: patient was not received from another setting of care. Onset of symptoms was January 16, 2019. Risk Assessment: Do you want to hurt yourself or someone else? Patient reports no desire to harm self or others. Initial Sepsis Screen: Does the patient meet any 2 criteria? RR > 20 per min. HR > 90 bpm. Yes Does the patient have a suspected source of infection? Yes: Skin breakdown/wound If YES to both, name of provider notified: Keagan Michaud MD 20:54 Method Of Arrival: EMS: [facility] jb4 20:54 Acuity: EDD 3 jb4 20:54 Care prior to arrival: None. jb4 Historical: - Allergies: 20:54 Abilify; jb4 20:54 Promethazine; jb4 - Home Meds: 20:54 Depakote Oral [Active]; jb4 - PMHx: 20:54 manic bipolar disorder; Schizophrenia; jb4 - PSHx: 20:54 None; jb4 - Immunization history:: Adult Immunizations unknown. - Social history:: Smoking status: Patient/guardian denies using tobacco, Patient/guardian denies using alcohol, street drugs. - Ebola Screening: : No symptoms or risks identified at this time. Screenin:54 Abuse screen: Denies threats or abuse. Nutritional screening: No deficits noted. jb4 Tuberculosis screening: No symptoms or risk factors identified. Fall Risk None identified. Assessment: 20:54 General: Appears in no apparent distress. uncomfortable, Behavior is calm, cooperative, jb4 appropriate for age, Pt reports hearing voices, denies that voices are telling him to harm himself or others. Reports not knowing how he received his injuries.. Pain: Complains of pain in right jaw, left jaw, back, groin, right leg, left leg and neck Pain does not radiate. Pain currently is 8 out of 10 on a pain scale. Quality of pain is described as aching, throbbing, Reports penile pain as something is biting it. Pain began 1 day ago. Is continuous. Neuro: Level of Consciousness is awake, alert, obeys commands, Oriented to person, place, time, situation. Cardiovascular: Patient's skin is warm and dry. Rhythm is sinus rhythm. Respiratory: Airway is patent Respiratory effort is even, unlabored, Respiratory pattern is regular, symmetrical. GI: No signs and/or symptoms were reported involving the gastrointestinal system. : No signs and/or symptoms were reported regarding the genitourinary system. EENT: No signs and/or symptoms were reported regarding the EENT system. Derm: Skin abrasions noted to MILLER ankles, back left side of the neck, middle back, right lower back. abrasion to the neck appears to have yellow drainage. Skin is dry, Skin is normal, Skin temperature is warm. Musculoskeletal: Circulation, motion, and sensation intact. Range of motion: intact in all extremities. 22:00 Reassessment: Patient appears in no apparent distress at this time. Patient and/or jb4 family updated on plan of care and expected duration. Pain level reassessed. Patient is alert, oriented x 3, equal unlabored respirations, skin warm/dry/pink. 23:00 Reassessment: Patient appears in no apparent distress at this time. Patient and/or jb4 family updated on plan of care and expected duration. Pain level reassessed. Patient is alert, oriented x 3, equal unlabored respirations, skin warm/dry/pink. 01/17 00:00 Reassessment: Patient appears in no apparent distress at this time. Patient and/or jb4 family updated on plan of care and expected duration. Pain level reassessed. Patient is alert, oriented x 3, equal unlabored respirations, skin warm/dry/pink. Vital Signs: 01/16 20:54 BP 113 / 71; Pulse 100; Resp 24; Temp 98.7(O); Pulse Ox 99% on R/A; Weight 68.04 kg jb4 (R); Height 5 ft. 8 in. (172.72 cm) (R); Pain 8/10; 22:00 BP 113 / 72; Pulse 84; Resp 20; Pulse Ox 100% on R/A; jb4 23:00 BP 115 / 75; Pulse 82; Resp 16; Pulse Ox 100% on R/A; jb4 01/17 00:00 BP 124 / 70; Pulse 89; Resp 18; Temp 98.4(O); Pulse Ox 99% on R/A; jb4 01/16 20:54 Body Mass Index 22.81 (68.04 kg, 172.72 cm) jb4 ED Course: 01/16 20:54 Arm band placed on right wrist. jb4 20:54 Patient has correct armband on for positive identification. Bed in low position. Call jb4 light in reach. Side rails up X 1. welfare case worker on. Pulse ox on. NIBP on. 21:02 Patient arrived in ED. aa1 21:02 Mukund Bonner, RN is Primary Nurse. jb4 21:03 Keagan Michaud MD is Attending Physician. tw4 21:06 Triage completed. jb4 21:10 Inserted saline lock: 18 gauge in right antecubital area, using aseptic technique. jb4 Blood collected. 21:10 Initial lab(s) drawn, by ED staff, sent to lab. First set of blood cultures drawn by ED jb4 staff. 21:45 Second set of blood cultures drawn by ED staff. jb4 21:49 US Scrotum Testicles In Process Unspecified. EDMS 22:16 Chest Single View XRAY In Process Unspecified. EDMS 22:58 Jas Beckwith DO is Hospitalizing Provider. tw4 01/17 00:26 No provider procedures requiring assistance completed. Patient admitted, IV remains in jb4 place. Administered Medications: 01/16 21:25 Drug: NS 0.9% (30 ml/kg) 30 ml/kg Route: IV; Rate: bolus; Site: right antecubital; jb4 22:35 Follow up: Response: No adverse reaction; IV Intake: 2041ml jb4 22:40 Follow up: Response: No adverse reaction; IV Status: Completed infusion; IV Intake: jb4 2041ml 22:43 Drug: NS 0.9% 1000 ml Route: IV; Rate: 1000 ml; Site: right antecubital; jb4 23:15 Follow up: Response: No adverse reaction; IV Status: Completed infusion; IV Intake: jb4 1000ml Intake: 22:35 IV: 2041ml; Total: 2041ml. jb4 22:40 IV: 2041ml; Total: 4082ml. jb4 23:15 IV: 1000ml; Total: 5082ml. jb4 Outcome: 22:58 Decision to Hospitalize by Provider. tw4 01/17 00:26 Admitted to Tele accompanied by tech, via wheelchair, room 426, with chart. jb4 Condition: stable Instructed on the need for admit, Demonstrated understanding of instructions. 00:42 Patient left the ED. jb4 Signatures: Dispatcher [employer] EDMS Lynne Holcomb RN RN aa1 Mukund Bonner RN RN jb4 Keagan Michaud MD MD tw4
--- NOTE | 2019-01-16 22:59 | EDPHYS ---
Physician Documentation [facility] Name: Carlos Walker Age: 28 yrs Sex: Male : 1990 Arrival Date: 01/16/2019 Time: 21:02 Bed 20 Private MD: ED Physician Keagan Michaud HPI: 01/17 03:48 This 28 yrs old Male presents to ER via EMS with complaints of leg swelling. tw4 03:48 The patient presents with swelling. The complaints affect the lateral aspect of left tw4 calf, left calf, medial aspect of left calf and left hoang, lateral aspect of right calf, right calf, medial aspect of right calf and right hoang. Context: The problem was sustained at home. Modifying factors: The symptoms are alleviated by nothing. the symptoms are aggravated by nothing. Severity of symptoms: At their worst the symptoms were moderate, in the emergency department the symptoms are unchanged. The patient has not experienced similar symptoms in the past. Historical: - Allergies: 01/16 20:54 Abilify; jb4 20:54 Promethazine; jb4 - Home Meds: 20:54 Depakote Oral [Active]; jb4 - PMHx: 20:54 manic bipolar disorder; Schizophrenia; jb4 - PSHx: 20:54 None; jb4 - Immunization history:: Adult Immunizations unknown. - Social history:: Smoking status: Patient/guardian denies using tobacco, Patient/guardian denies using alcohol, street drugs. - Ebola Screening: : No symptoms or risks identified at this time. ROS: 01/17 03:48 Constitutional: Negative for fever, chills, and weight loss, Cardiovascular: Negative tw4 for chest pain, palpitations, and edema, Respiratory: Negative for shortness of breath, cough, wheezing, and pleuritic chest pain, Abdomen/GI: Negative for abdominal pain, nausea, vomiting, diarrhea, and constipation. MS/extremity: Positive for swelling, Negative for injury or acute deformity. Exam: 03:48 Constitutional: This is a well developed, well nourished patient who is awake, alert, tw4 and in no acute distress. Head/Face: Normocephalic, atraumatic. Chest/axilla: Normal chest wall appearance and motion. Nontender with no deformity. No lesions are appreciated. Cardiovascular: Regular rate and rhythm with a normal S1 and S2. No gallops, murmurs, or rubs. Normal PMI, no JVD. No pulse deficits. Respiratory: Lungs have equal breath sounds bilaterally, clear to auscultation and percussion. No rales, rhonchi or wheezes noted. No increased work of breathing, no retractions or nasal flaring. Abdomen/GI: Soft, non-tender, with normal bowel sounds. No distension or tympany. No guarding or rebound. No evidence of tenderness throughout. 03:48 Back: pain, that is very mild, abrasion in on cervical and thoracic spine. Vital Signs: 01/16 20:54 BP 113 / 71; Pulse 100; Resp 24; Temp 98.7(O); Pulse Ox 99% on R/A; Weight 68.04 kg jb4 (R); Height 5 ft. 8 in. (172.72 cm) (R); Pain 8/10; 22:00 BP 113 / 72; Pulse 84; Resp 20; Pulse Ox 100% on R/A; jb4 23:00 BP 115 / 75; Pulse 82; Resp 16; Pulse Ox 100% on R/A; jb4 01/17 00:00 BP 124 / 70; Pulse 89; Resp 18; Temp 98.4(O); Pulse Ox 99% on R/A; jb4 01/16 20:54 Body Mass Index 22.81 (68.04 kg, 172.72 cm) jb4 MDM: 01/16 21:03 Patient medically screened. tw4 01/17 03:48 Differential diagnosis: dislocation, open fracture. Data reviewed: vital signs, nurses tw4 notes. Counseling: I had a detailed discussion with the patient and/or guardian regarding: the historical points, exam findings, and any diagnostic results supporting the discharge/admit diagnosis. Physician consultation: Jas Beckwith DO regarding admission, patient's condition, need to evaluate the patient as soon as possible, and will see patient in ED. ED course: Pt's CPK was 11,000 pt was a poor historian. It is unclear how pt came to have rhabodomylosis. ED course: Will hydrate and admit for observation. 01/16 21:14 Order name: Basic Metabolic Panel; Complete Time: 22:50 tw4 01/16 22:51 Interpretation: Within normal limits. tw01/16 21:14 Order name: Blood Culture Adult (2) [facility] 01/16 21:14 Order name: CBC with Diff; Complete Time: 22:52 01/16 22:52 Interpretation: Normal except: RBC 4.12; HGB 12.9; HCT 38.1; MCV 92.4. 01/16 21:14 Order name: Ckmb; Complete Time: 22:58 01/16 22:58 Interpretation: Abnormal: CKMB 16.3. 01/16 21:14 Order name: CPK; Complete Time: 22:58 01/16 22:58 Interpretation: Abnormal: CPK 54711. 01/16 21:14 Order name: Lactate; Complete Time: 22:59 01/16 22:59 Interpretation: Within normal limits: LAC 1.2. 01/16 21:14 Order name: LFT's; Complete Time: 22:58 [facility] 01/16 22:58 Interpretation: Within normal limits: AST 199. 01/16 21:14 Order name: Lipase; Complete Time: 22:59 01/16 22:59 Interpretation: Within normal limits: LIP 129. 01/16 21:14 Order name: Procalcitonin; Complete Time: 22:59 01/16 22:59 Interpretation: Within normal limits: Procalcitonin < 0.05. 01/16 21:14 Order name: Protime (+inr) [facility] 01/16 21:14 Order name: Ptt, Activated 01/16 21:14 Order name: Urine Microscopic Only 01/16 21:31 Order name: UDS; Complete Time: 22:59 01/16 22:59 Interpretation: Normal except: METHAMPHETAMINE POSITIVE; THC POSITIVE. 01/16 23:01 Order name: Urine Dipstick--Ancillary (enter results) [facility] 01/16 21:14 Order name: Chest Single View XRAY [facility] 01/16 21:14 Order name: Accucheck; Complete Time: 22:08 01/16 21:14 Order name: Cardiac monitoring; Complete Time: 21:32 01/16 21:14 Order name: EKG - Nurse/Tech; Complete Time: 22:08 01/16 21:14 Order name: IV Saline Lock - Large Bore; Complete Time: 21:32 4 01/16 21:14 Order name: Labs collected and sent; Complete Time: 21:33 4 01/16 21:14 Order name: O2 Per Protocol; Complete Time: 21:33 4 01/16 21:14 Order name: O2 Sat Monitoring; Complete Time: 21:33 4 01/16 21:14 Order name: Urine Dipstick-Ancillary (obtain specimen); Complete Time: 22:08 4 01/16 21:29 Order name: US Scrotum Testicles tw4 01/17 00:37 Order name: Troponin (emerg Dept Use Only) jb4 EC/22 22:19 Rate is 80 beats/min. Rhythm is regular. QRS Dexter is Normal. [place] interval is normal. QRS tw4 interval is normal. No Q waves. T waves are Normal. No ST changes noted. Clinical impression: Abnormal EKG without significant change. Interpreted by me. Reviewed by me. Administered Medications: 21:25 Drug: NS 0.9% (30 ml/kg) 30 ml/kg Route: IV; Rate: bolus; Site: right antecubital; jb4 22:35 Follow up: Response: No adverse reaction; IV Intake: 2041ml jb4 22:40 Follow up: Response: No adverse reaction; IV Status: Completed infusion; IV Intake: jb4 2041ml 22:43 Drug: NS 0.9% 1000 ml Route: IV; Rate: 1000 ml; Site: right antecubital; jb4 23:15 Follow up: Response: No adverse reaction; IV Status: Completed infusion; IV Intake: jb4 1000ml Disposition: 01/16/19 22:58 Hospitalization ordered by Jas Beckwith for Observation. Preliminary diagnosis is Rhabdomyolysis. - Bed requested for Telemetry/MedSurg (Inpatient). - Status is Observation. jb4 - Condition is Fair. - Problem is new. - Symptoms are unchanged. UTI on Admission? No Signatures: Dispatcher [employer] EDCA Yari Beltran RN RN Mukund Bonner RN RN jb4 Keagan Michaud MD MD tw4 Corrections: (The following items were deleted from the chart) 23: 22:58 Hospitalization Ordered by Jas Beckwith DO for Inpatient Admission. Preliminary tw4 diagnosis is Rhabdomyolysis. Bed requested for Telemetry/MedSurg (Inpatient). Status is Inpatient Admission. Condition is Fair. Problem is new. Symptoms are unchanged. UTI on Admission? No. tw4 23:34 23:07 01/16/2019 22:58 Hospitalization Ordered by Jas Beckwith DO for Observation. mw Preliminary diagnosis is Rhabdomyolysis. Bed requested for Telemetry/MedSurg (Inpatient). Status is Observation. Condition is Fair. Problem is new. Symptoms are unchanged. UTI on Admission? No. tw4 01/17 00:42 01/16 23:34 01/16/2019 22:58 Hospitalization Ordered by Jas Beckwith DO for jb4 Observation. Preliminary diagnosis is Rhabdomyolysis. Bed requested for Telemetry/MedSurg (Inpatient). Status is Observation. Condition is Fair. Problem is new. Symptoms are unchanged. UTI on Admission? No. mw
[2019-01-16 23:00] LABS: Urine Bacteria <20 /HPF (NONE SEEN); Urine Culture Reflex Order NOT NEEDED; Urine RBC NONE SEEN /HPF (NONE SEEN)
--- NOTE | 2019-01-16 23:39 | P.HP ---
Certification for Inpatient Patient admitted to: Observation With expected LOS: <2 Midnights Patient will require the following post-hospital care: None Practitioner: I am a practitioner with admitting privileges, knowledge of patient current condition, hospital course, and medical plan of care. Services: Services provided to patient in accordance with Admission requirements found in Title 42 Section 412.3 of the Code of Federal Regulations Patient History Date of Service: 01/16/19 Primary Care Provider: none Reason for admission: body aches History of Present Illness: 28 yo HM presented to the ER with body aches mainly to the ankles and back. He is homeless and known drug abuser. He came to the ER seeking help. He has not been eating well or drinking well over the last couple of days. He admits to drug use about 2 days ago with amphetamines and THC. He has no place to go. His family does not want anything to do with him. In the ER he was evaluated. He was initially tachycardic and [place] [address]. He was given IV fluids in the ER he was admitted for observation. He was positive for amphetamines and THC. Allergies aripiprazole [From Abilify] Allergy (Unverified 08/23/17 02:53) Unknown promethazine Allergy (Unverified 08/23/17 02:53) Unknown Home medications list reviewed: Yes - Past Medical/Surgical History Diabetic: No Past Medical History: Patient denies medical history -: Amphetamine abuse -: THC abuse -: Tobacco abuse -: Alcohol abuse Past Surgical History: Patient denies surgical history Psychosocial/ Personal History: he is homeless. - Family History Family History: Reviewed- Non-Contributory - Social History Smoking Status: Heavy Tobacco smoker (>10 cigarettes/day) Counseled patient to stop smoking for: less than 10 minutes Smoking therapy provided: Yes Patient receptive to therapy: No Alcohol use: Yes CD- Drugs: Yes Caffeine use: Yes Place of Residence: Homeless Review of Systems General: Weakness, As per HPI Eyes: Unremarkable ENT: Unremarkable Respiratory: Unremarkable Cardiovascular: Unremarkable Gastrointestinal: Unremarkable Genitourinary: Unremarkable Musculoskeletal: Back Pain, As per HPI Integumentary: Unremarkable Neurological: Unremarkable Lymphatics: Unremarkable Physical Examination - Physical Exam General: Alert, In no apparent distress, Oriented x3, Cooperative, Cachectic, Disheveled HEENT: Atraumatic, Normocephalic, PERRLA, Other (dry mucous membranes) Neck: Supple, No Thyromegaly Respiratory: Clear to auscultation bilaterally, Normal air movement Cardiovascular: Normal pulses, Regular rate/rhythm Gastrointestinal: Normal bowel sounds, Soft and benign, Non-distended, No ascites, No tenderness, No masses, No rebound, No guarding Musculoskeletal: No erythema, No tenderness, No warmth Integumentary: No tenderness/swelling, No erythema, No warmth, No cyanosis Neurological: Normal speech, Normal strength at 5/5 x4 extr, Normal tone, Normal affect - Studies Laboratory Data (last 24 hrs) 01/16/19 21:10: PT 10.5, INR 0.89, APTT 27.5 01/16/19 21:10: WBC 9.1, Hgb 12.9 L, Hct 38.1 L, Plt Count 234 01/16/19 21:10: Sodium 141, Potassium 3.6, BUN 17, Creatinine 0.92, Glucose 83, Total Bilirubin 0.3, AST 199 H, ALT 66, Alkaline Phosphatase 98, Lipase 129 Assessment and Plan - Plan Impression: Acute rhabdomyolysis secondary to dehydration and poor oral intake Amphetamine abuse THC abuse Alcohol/Tobacco abuse Plan: Patient will be admitted for observation. He has been given 2 liters of IV fluid bolus. Will continue with IV fluids. Will recheck CPK and lab in the am. Anticipate improvement. Likely discharge in the am if doing well. Will have social service provide education/resources for homeless. Will provide Nicoderm patch. Educate on Amphetamine/THC/Tobacco/Alcohol cessation. Recommend that he go to the [facility] locally or another homeless correction in [place] for help. Discharge Plan: Home Plan to discharge in: 24 Hours - Advance Directives Does patient have a Living Will: No Does patient have a Durable POA for Healthcare: No - Code Status/Comfort Care Code Status Assessed: Yes (Patient is full code.) Time Spent Managing Pts Care (In Minutes): 55
[2019-01-17 00:29] LABS: Urine Blood NEGATIVE (NEG); Urine Glucose NEGATIVE (NEG); Urine Protein 1+ (NEG); Urine Specific Gravity >1.030 (1.005-1.030); Urine pH 5.5 (5.0-7.0)
[2019-01-17 00:56] VITALS: BMI 23.4
[2019-01-17] MEDS ORDERED: ONDANSETRON 4 MG/2 ML VIAL IV PRN (00:57)
[2019-01-17] MEDS ORDERED: ACETAMINOPHEN 500 MG TAB PO PRN (00:57)
[2019-01-17] MEDS: NA CHLORIDE 0.9% 1,000 ML IV SCH ×4 (01:47→23:55)
[2019-01-17] MEDS: TRAMADOL HCL 50 MG TAB PO PRN ×3 (01:52→20:18)
[2019-01-17 05:22] LABS: BUN Blood Urea Nitrogen 12 mg/dL (7-18); Bicarbonate 27 mmol/L (21-32); Creatine Phosphokinase 7650 U/L (39-308); Glucose Level 127 mg/dL (74-106); Potassium 3.2 mmol/L (3.5-5.1); Sodium Level 144 mmol/L (136-145)
[2019-01-17] MEDS ORDERED: POTASSIUM CL SA 10 MEQ TAB PO ONE (06:00)
[2019-01-17] MEDS: NICOTINE 21 MG/PAT TD SCH (08:23)
[2019-01-17] MEDS: ENOXAPARIN 40 MG/0.4 ML SQ SCH (08:23)
[2019-01-17 10:13] VITALS: O2SAT 98
--- NOTE | 2019-01-17 15:27 | P.PN ---
Subjective Date of Service: 01/17/19 Primary Care Provider: none Chief Complaint: body aches Patient seen and examined at bedside with RN. Chart reviewed. Case discussed with patient at bedside. Currently patient is doing well no complaints to offer denies having any nausea vomiting or any other associated symptoms. Review of Systems 10-point ROS is otherwise unremarkable Physical Examination - Vital Signs Temperature: 98.1 F Blood Pressure: 101/67 Pulse: 64 Respirations: 18 Pulse Ox (%): 98 - Physical Exam General: Alert, In no apparent distress HEENT: Atraumatic, PERRLA, EOMI Neck: Supple, JVD not distended Respiratory: Clear to auscultation bilaterally, Normal air movement Cardiovascular: Regular rate/rhythm, Normal S1 S2 Gastrointestinal: Normal bowel sounds, No tenderness Musculoskeletal: No tenderness Integumentary: No rashes Neurological: Normal speech, Normal tone, Normal affect Lymphatics: No axilla or inguinal lymphadenopathy - Studies Laboratory Data (last 24 hrs) 01/16/19 21:10: PT 10.5, INR 0.89, APTT 27.5 01/16/19 21:10: WBC 9.1, Hgb 12.9 L, Hct 38.1 L, Plt Count 234 01/16/19 21:10: Sodium 141, Potassium 3.6, BUN 17, Creatinine 0.92, Glucose 83, Total Bilirubin 0.3, AST 199 H, ALT 66, Alkaline Phosphatase 98, Lipase 129 Medications List Reviewed: Yes Assessment And Plan - Current Problems (Diagnosis) (1) Rhabdomyolysis Current Visit: Yes Status: Acute Plan: Patient with rhabdomyolysis most likely secondary to drug abuse versus dehydration -IV fluids and 100 mL an hr at this time -CK has been elevated to 7000 will continue monitor that here in the hospital -followup with CK and lab work tomorrow anticipate discharge in 24 hr Qualifiers: Rhabdomyolysis type: non-traumatic Qualified Code(s): M62.82 - Rhabdomyolysis (2) Drug abuse Current Visit: Yes Status: Acute Plan: History of drug abuse positive for THC and amphetamines -educated extensively regarding drug abuse. Patient demonstrate understanding - Plan Pending clinical improvement at this time Discharge Plan: Home Plan to discharge in: Greater than 2 days - Code Status/Comfort Care Code Status Assessed: Yes Critical Care: No
[2019-01-18] MEDS: NA CHLORIDE 0.9% 1,000 ML IV SCH (06:39)
[2019-01-18] MEDS: ENOXAPARIN 40 MG/0.4 ML SQ SCH (08:59)
[2019-01-18] MEDS: NICOTINE 21 MG/PAT TD SCH (08:59)
[2019-01-18 10:01] VITALS: BP 109/68; TEMP 97.2
--- NOTE | 2019-01-18 10:42 | EKG ---
Test Date: 2019-01-16 Test Time: 21:56:52 Oxyacetylene Welder: DAVID MEASUREMENT RESULTS: Intervals: Rate: 80 [place]: 144 QRSD: 102 QT: 386 QTc: 445 [place]: P: 76 [place]: 144 QRS: 84 T: 52 INTERPRETIVE STATEMENTS: Normal sinus rhythm Incomplete right bundle branch block Borderline ECG Compared to ECG 02/16/2018 20:28:58 Prolonged QT interval no longer present Electronically Signed On 01-18-19 10:41:47 CDT by Jordy Santana
--- NOTE | 2019-01-18 12:28 | P.SSS ---
Patient History Date of Service: 01/18/19 Primary Care Provider: none Reason for admission: body aches History of Present Illness: 28 yo HM presented to the ER with body aches mainly to the ankles and back. He is homeless and known drug abuser. He came to the ER seeking help. He has not been eating well or drinking well over the last couple of days. He admits to drug use about 2 days ago with amphetamines and THC. He has no place to go. His family does not want anything to do with him. In the ER he was evaluated. He was initially tachycardic and [place] [address]. He was given IV fluids in the ER he was admitted for observation. He was positive for amphetamines and THC. Allergies aripiprazole [From Abilify] Allergy (Verified 01/17/19 01:23) Anaphylaxis promethazine Allergy (Verified 01/17/19 01:23) Anaphylaxis Home Medications: NK [No Home Meds] 01/17/19 - Past Medical/Surgical History Has patient received pneumonia vaccine in the past: No Diabetic: No -: Amphetamine abuse -: THC abuse -: Tobacco abuse -: Alcohol abuse Psychosocial/ Personal History: he is homeless. - Family History Family History: Reviewed- Non-Contributory - Social History Smoking Status: Heavy Tobacco smoker (>10 cigarettes/day) Alcohol use: Yes CD- Drugs: Yes Caffeine use: Yes Place of Residence: Homeless Review of Systems 10-point ROS is otherwise unremarkable Physical Examination - Vital Signs Temperature: 97.2 F Blood Pressure: 109/68 Pulse: 54 Respirations: 16 Pulse Ox (%): 98 - Physical Exam General: Alert, In no apparent distress HEENT: Atraumatic, PERRLA, Mucous membr. moist/pink, EOMI, Sclerae nonicteric Neck: Supple, 2+ carotid pulse no bruit, No LAD, Without JVD or thyroid abnormality Respiratory: Clear to auscultation bilaterally, Normal air movement Cardiovascular: Regular rate/rhythm, Normal S1 S2 Gastrointestinal: Normal bowel sounds, No tenderness Musculoskeletal: No tenderness Integumentary: No rashes Neurological: Normal gait, Normal speech, Normal strength at 5/5 x4 extr, Normal tone, Normal affect Lymphatics: No axilla or inguinal lymphadenopathy - Diagnosis (Problem(s)) (1) Rhabdomyolysis Current Visit: Yes Status: Acute Plan: Patient with rhabdomyolysis most likely secondary to drug abuse versus dehydration -was kept on IV fluids here in the hospital. -CK improved today -will discharge patient Qualifiers: Rhabdomyolysis type: non-traumatic Qualified Code(s): M62.82 - Rhabdomyolysis (2) Drug abuse Current Visit: Yes Status: Acute Plan: History of drug abuse positive for THC and amphetamines -educated extensively regarding drug abuse. Patient demonstrate understanding - Disposition Disposition: ROUTINE DISCHARGE Condition: GOOD Diet: Regular Activity: Ad azael
== END 2019-01-18 12:31 | disposition home or self-care (01) ==
LOC: ER 20:55 → ERHOLD 23:31 → 4TH 01-17 00:17 → 2ND 01-17 05:07
PROVIDERS: ADMIT Family Medicine; ATTEND Family Medicine
DX: M62.82 Rhabdomyolysis (principal); E86.0 Dehydration; E63.8 Other specified nutritional deficiencies; F15.10 Other stimulant abuse, uncomplicated; F12.10 Cannabis abuse, uncomplicated; F17.210 Nicotine dependence, cigarettes, uncomplicated; Z59.0 Homelessness; I45.10 Unspecified right bundle-branch block; R94.31 Abnormal electrocardiogram [ECG] [EKG]; F31.89 Other bipolar disorder; F20.9 Schizophrenia, unspecified; Z79.899 Other long term (current) drug therapy
CPT/HCPCS: 36415; 71045; 76870; 80048; 80076; 80307; 81003; 81015; 82550; 82553; 82962; 83605; 83690; 83735; 84132; 84145; 84484; 85025; 85610; 85730; 87040; 93005; 96361; 96365; 99285; G0378; J1650; J7030

== ENCOUNTER 2019-01-19 04:58 | Emergency (ER) | payer SELFPAY ==
--- OUTSIDE RECORDS SUMMARY | 2019-01-19 05:01 | XMS REPORT ---
:1990 Author Organization [facility] Address [address] [place] [address] Care Team Providers Name Role Phone Unavailable Unavailable Unavailable Problems This patient has no known problems. Allergies, Adverse Reactions, Alerts This patient has no known allergies or adverse reactions. Medications This patient has no known medications.
[2019-01-19 05:54] LABS: Absolute Lymphocytes (CBC) 1.3 K/uL (0.7-4.9); Basophils % 0.9 % (0-1.3); Hematocrit 33.5 % (39.6-49.0); MPV 9.4 fL (7.6-11.3); RBC Red Blood Cell Count 3.74 M/uL (4.33-5.43)
[2019-01-19 05:55] LABS: Protime INR 1.02
[2019-01-19] MEDS ORDERED: NA CHLORIDE 0.9% 1,000 ML ONE ×2 (06:01→06:43)
[2019-01-19 06:05] LABS: Barbiturates NEGATIVE (NEGATIVE); Benzodiazepines NEGATIVE (NEGATIVE); Cocaine NEGATIVE (NEGATIVE); METHAMPHETAM POSITIVE (NEGATIVE); Methadone NEGATIVE (NEGATIVE); Opiates NEGATIVE (NEGATIVE); Phencyclidine NEGATIVE (NEGATIVE); THC Cannibis POSITIVE (NEGATIVE)
[2019-01-19 06:14] LABS: ALT/SGPT 51 U/L (12-78); AST/SGOT 67 U/L (15-37); Albumin 3.5 g/dL (3.4-5.0); Alkaline Phosphatase 70 U/L (45-117); BUN Blood Urea Nitrogen 7 mg/dL (7-18); Bicarbonate 29 mmol/L (21-32); Bilirubin Direct < 0.1 mg/dL (0-0.2); Bilirubin Total 0.3 mg/dL (0.2-1.0); CKMB Creatine Kinase MB 6.9 ng/mL (0.3-3.6); Glucose Level 95 mg/dL (74-106); Potassium 3.8 mmol/L (3.5-5.1); Protein, Total 6.4 g/dL (6.4-8.2); Sodium Level 144 mmol/L (136-145)
[2019-01-19 06:16] LABS: Creatine Phosphokinase 2947 U/L (39-308)
[2019-01-19 06:19] LABS: Urine Blood NEGATIVE (NEG); Urine Glucose NEGATIVE (NEG); Urine Protein 1+ (NEG); Urine Specific Gravity 1.025 (1.005-1.030)
--- NOTE | 2019-01-19 06:43 | ER ---
Nurse's Notes [facility] Name: Carlos Walker Age: 28 yrs Sex: Male : 1990 Arrival Date: 01/19/2019 Time: 05:00 Bed 6 Private MD: Diagnosis: Bipolar disorder;Schizophrenia, unspecified;Rhabdomyolysis Presentation: 01/19 05:05 Presenting complaint: EMS states: they were toned out for pt c/o "kidney pain" pt was bb discharged from the hospital yesterday after being admitted for rhabdomyolysis and states the pain is the same as when he was here yesterday. Transition of care: patient was not received from another setting of care. Onset of symptoms was January 19, 2019. Risk Assessment: Do you want to hurt yourself or someone else? Patient reports no desire to harm self or others. Initial Sepsis Screen: Does the patient meet any 2 criteria? No. Patient's initial sepsis screen is negative. Does the patient have a suspected source of infection? No. Patient's initial sepsis screen is negative. Care prior to arrival: None. 05:05 Method Of Arrival: EMS: [facility] bb 05:05 Acuity: EDD 3 bb Historical: - Allergies: 05:07 Abilify; bb 05:07 Promethazine; bb - Home Meds: 05:07 Depakote Oral [Active]; bb - PMHx: 05:07 manic bipolar disorder; Schizophrenia; bb - PSHx: 05:07 None; bb - Immunization history:: Adult Immunizations up to date. - Social history:: Smoking status: Patient uses tobacco products, smokes one pack cigarettes per day. Patient uses street drugs, marijuana. - Ebola Screening: : No symptoms or risks identified at this time. - Family history:: not pertinent. Screenin:30 Abuse screen: Denies threats or abuse. Nutritional screening: No deficits noted. bb Tuberculosis screening: No symptoms or risk factors identified. Fall Risk None identified. Assessment: 05:30 General: Appears in no apparent distress. slender, unkempt, Behavior is calm, bb cooperative. Pain: Complains of pain in abdomen Pain currently is 8 out of 10 on a pain scale. Neuro: Level of Consciousness is awake, alert, obeys commands, Oriented to person, place, time, situation. Cardiovascular: Heart tones S1 S2 present Capillary refill < 3 seconds Patient's skin is warm and dry. Pulses are all present. Edema is absent. Respiratory: Respiratory effort is even, unlabored, Respiratory pattern is regular, Breath sounds are clear bilaterally. GI: Abdomen is flat, Bowel sounds present X 4 quads. Abd is soft X 4 quads Abdomen is tender to palpation in left upper quadrant Patient currently denies diarrhea, vomiting. Derm: Skin is dry, Skin is normal, Skin temperature is warm. Derm: healing abrasions to back. Musculoskeletal: Circulation, motion, and sensation intact. 06:03 Reassessment: Patient is alert, oriented x 3, equal unlabored respirations, skin bb warm/dry/pink. pt resting quietly, IV site intact, patent with fluids infusing awaiting test results. 07:46 Reassessment: Patient appears in no apparent distress at this time. Patient and/or tw2 family updated on plan of care and expected duration. Pain level reassessed. Patient is alert, oriented x 3, equal unlabored respirations, skin warm/dry/pink. Vital Signs: 05:07 BP 104 / 64; Pulse 112; Resp 16 S; Temp 98.6(O); Pulse Ox 96% on R/A; Weight 68.04 kg bb (R); Height 5 ft. 8 in. (172.72 cm) (R); Pain 8/10; 06:03 BP 91 / 48; Pulse 109; Resp 18 S; Pulse Ox 97% on R/A; bb 07:45 BP 102 / 60; Pulse 100; Resp 18; Pulse Ox 100% on R/A; tw2 05:07 Body Mass Index 22.81 (68.04 kg, 172.72 cm) ED Course: 05:00 Patient arrived in ED. 05:03 Raymon Avendano MD is Attending Physician. [facility] 05:07 Triage completed. bb 05:07 Arm band placed on Patient placed in an exam room, on a stretcher, on pulse oximetry. 05:30 Patient has correct armband on for positive identification. Placed in gown. Bed in low bb position. Call light in reach. Side rails up X 1. operating room surgical technician on. Pulse ox on. NIBP on. 05:30 Initial lab(s) drawn, by me, sent to lab. Urine collected: clean catch specimen, sindy bb colored, EKG done, by ED staff, reviewed by Raymon Avendano MD. Inserted saline lock: 20 gauge in left forearm, using aseptic technique. Blood collected. 07:45 Mamie Brown, RN is Primary Nurse. tw2 07:46 No provider procedures requiring assistance completed. IV discontinued, intact, tw2 bleeding controlled, No redness/swelling at site. Pressure dressing applied. Administered Medications: 05:39 Drug: NS 0.9% 1000 ml Route: IV; Rate: 1 bolus; Site: left forearm; bb 06:27 Follow up: IV Status: Completed infusion; IV Intake: 1000ml bb 06:27 Drug: NS 0.9% 1000 ml Route: IV; Rate: 1 bolus; Site: right antecubital; bb 07:45 Follow up: Response: No adverse reaction; IV Status: Completed infusion; IV Intake: tw2 1000ml Intake: 06:27 IV: 1000ml; Total: 1000ml. bb 07:45 IV: 1000ml; Total: 2000ml. tw2 Outcome: 06:42 Discharge ordered by . greyson 07:46 Discharged to home ambulatory. tw2 07:46 Condition: stable 07:46 Discharge instructions given to patient, Instructed on discharge instructions, follow up and referral plans. Demonstrated understanding of instructions, follow-up care. 07:46 Patient left the ED. tw2 Signatures: Raymon Avendano MD MD cha Ballard, Brenda, RN RN Mamie Wen, RN RN tw2
--- NOTE | 2019-01-19 06:43 | EDPHYS ---
Physician Documentation [facility] Name: Carlos Walker Age: 28 yrs Sex: Male : 1990 Arrival Date: 01/19/2019 Time: 05:00 Bed 6 Private MD: ED Physician Raymon Avendano HPI: 01/19 05:14 This 28 yrs old Male presents to ER via EMS with complaints of Abdominal Pain. greyson 05:14 The patient presents to the emergency department with a history of substance abuse, greyson Type: methamphetamines. Onset: The symptoms/episode began/occurred 2 day(s) ago. Past psychiatric history: Prior diagnosis: bipolar disorder, schizophrenia, Psychiatric medications include: none. The patient presents with abdominal pain in the upper abdomen. Onset: The symptoms/episode began/occurred 2 day(s) ago. The symptoms do not radiate. Associated signs and symptoms: The patient has no apparent associated signs or symptoms. Severity of pain: At its worst the pain was mild in the emergency department the pain is unchanged. Historical: - Allergies: 05:07 Abilify; bb 05:07 Promethazine; bb - Home Meds: 05:07 Depakote Oral [Active]; bb - PMHx: 05:07 manic bipolar disorder; Schizophrenia; bb - PSHx: 05:07 None; bb - Immunization history:: Adult Immunizations up to date. - Social history:: Smoking status: Patient uses tobacco products, smokes one pack cigarettes per day. Patient uses street drugs, marijuana. - Ebola Screening: : No symptoms or risks identified at this time. - Family history:: not pertinent. ROS: 05:14 Constitutional: Negative for fever, chills, and weight loss, Eyes: Negative for injury, greyson pain, redness, and discharge, ENT: Negative for injury, pain, and discharge, Neck: Negative for injury, pain, and swelling, Cardiovascular: Negative for chest pain, palpitations, and edema, Respiratory: Negative for shortness of breath, cough, wheezing, and pleuritic chest pain, Back: Negative for injury and pain, : Negative for injury, bleeding, discharge, and swelling, MS/Extremity: Negative for injury and deformity, Skin: Negative for injury, rash, and discoloration, Neuro: Negative for headache, weakness, numbness, tingling, and seizure, Psych: Negative for depression, anxiety, suicide ideation, homicidal ideation, and hallucinations, Allergy/Immunology: Negative for hives, rash, and allergies, Endocrine: Negative for neck swelling, polydipsia, polyuria, polyphagia, and marked weight changes, Hematologic/Lymphatic: Negative for swollen nodes, abnormal bleeding, and unusual bruising. 05:14 Abdomen/GI: Positive for abdominal pain, of the left upper quadrant. Exam: 05:14 Constitutional: This is a well developed, well nourished patient who is awake, alert, greyson and in no acute distress. Head/Face: Normocephalic, atraumatic. Eyes: Pupils equal round and reactive to light, extra-ocular motions intact. Lids and lashes normal. Conjunctiva and sclera are non-icteric and not injected. Cornea within normal limits. Periorbital areas with no swelling, redness, or edema. ENT: Nares patent. No nasal discharge, no septal abnormalities noted. Tympanic membranes are normal and external auditory canals are clear. Oropharynx with no redness, swelling, or masses, exudates, or evidence of obstruction, uvula midline. Mucous membranes moist. Neck: Trachea midline, no thyromegaly or masses palpated, and no cervical lymphadenopathy. Supple, full range of motion without nuchal rigidity, or vertebral point tenderness. No Meningismus. Chest/axilla: Normal chest wall appearance and motion. Nontender with no deformity. No lesions are appreciated. Respiratory: Lungs have equal breath sounds bilaterally, clear to auscultation and percussion. No rales, rhonchi or wheezes noted. No increased work of breathing, no retractions or nasal flaring. Abdomen/GI: Soft, non-tender, with normal bowel sounds. No distension or tympany. No guarding or rebound. No evidence of tenderness throughout. Back: No spinal tenderness. No costovertebral tenderness. Full range of motion. Male : Normal genitalia with no discharge or lesions. Skin: Warm, dry with normal turgor. Normal color with no rashes, no lesions, and no evidence of cellulitis. MS/ Extremity: Pulses equal, no cyanosis. Neurovascular intact. Full, normal range of motion. Neuro: Awake and alert, GCS 15, oriented to person, place, time, and situation. Cranial nerves II-XII grossly intact. Motor strength 5/5 in all extremities. Sensory grossly intact. Cerebellar exam normal. Normal gait. Psych: Awake, alert, with orientation to person, place and time. Behavior, mood, and affect are within normal limits. 05:14 Cardiovascular: Rate: tachycardic, Rhythm: regular, Pulses: Pulses are 4+ in bilateral radial, brachial, femoral, popliteal, posterior tibial and and dorsalis pedis arteries.. Heart sounds: normal, Edema: is not appreciated, JVD: is not appreciated. Vital Signs: 05:07 BP 104 / 64; Pulse 112; Resp 16 S; Temp 98.6(O); Pulse Ox 96% on R/A; Weight 68.04 kg bb (R); Height 5 ft. 8 in. (172.72 cm) (R); Pain 8/10; 06:03 BP 91 / 48; Pulse 109; Resp 18 S; Pulse Ox 97% on R/A; bb 07:45 BP 102 / 60; Pulse 100; Resp 18; Pulse Ox 100% on R/A; tw2 05:07 Body Mass Index 22.81 (68.04 kg, 172.72 cm) MDM: 05:03 Patient medically screened. [facility] 05:14 Data reviewed: vital signs, nurses notes, lab test result(s), EKG. [facility] 01/19 05:13 Order name: Acetaminophen 01/19 05:13 Order name: Basic Metabolic Panel 01/19 05:13 Order name: CBC with Diff 01/19 05:13 Order name: ETOH Level 01/19 05:13 Order name: Hepatic Function 01/19 05:13 Order name: PT-INR 01/19 05:13 Order name: Ptt, Activated; Complete Time: 06:01 [facility] 01/19 05:13 Order name: Salicylate; Complete Time: 06:08 [facility] 01/19 05:13 Order name: Urine Drug Screen; Complete Time: 06:08 [facility] 01/19 05:13 Order name: CK; Complete Time: 06:41 [facility] 01/19 05:13 Order name: Ckmb; Complete Time: 06:41 [facility] 01/19 05:13 Order name: Depakote; Complete Time: 06:41 [facility] 01/19 05:14 Order name: Acetaminophen Level; Complete Time: 06:41 [facility] 01/19 05:15 Order name: Basic Metabolic Panel; Complete Time: 06:41 [facility] 01/19 05:13 Order name: EKG; Complete Time: 05:16 [facility] 01/19 05:13 Order name: EKG - Nurse/Tech; Complete Time: 05:38 [facility] 01/19 05:13 Order name: IV Saline Lock; Complete Time: 05:37 [facility] 01/19 05:13 Order name: Labs collected and sent; Complete Time: 05:37 [facility] 01/19 05:13 Order name: Urine Dipstick-Ancillary (obtain specimen); Complete Time: 05:37 [facility] 01/19 05:15 Order name: CBC with Automated Diff; Complete Time: 06:08 [facility] 01/19 05:15 Order name: Alcohol Serum/Plasma; Complete Time: 06:08 [facility] 01/19 05:15 Order name: Liver (Hepatic) Function; Complete Time: 06:41 [facility] 01/19 05:15 Order name: Protime (+INR); Complete Time: 06:01 [facility] 01/19 05:39 Order name: Urine Dipstick--Ancillary (enter results) ar5 Administered Medications: 05:39 Drug: NS 0.9% 1000 ml Route: IV; Rate: 1 bolus; Site: left forearm; bb 06:27 Follow up: IV Status: Completed infusion; IV Intake: 1000ml 06:27 Drug: NS 0.9% 1000 ml Route: IV; Rate: 1 bolus; Site: right antecubital; bb 07:45 Follow up: Response: No adverse reaction; IV Status: Completed infusion; IV Intake: tw2 1000ml Disposition: 01/19/19 06:42 Discharged to Home. Impression: Bipolar disorder, Schizophrenia, unspecified, Rhabdomyolysis. - Condition is Stable. - Discharge Instructions: Bipolar Disorder, Substance Use Disorder, Rhabdomyolysis, Schizophrenia, Stimulant Use Disorder-Methamphetamines. - Medication Reconciliation Form, Thank You Letter, Antibiotic Education, Prescription Opioid Use form. - Follow up: Private Physician; When: 2 - 3 days; Reason: Recheck today's complaints, Continuance of care, Re-evaluation by your physician. - Problem is new. - Symptoms have improved. Signatures: Dispatcher [facility] HospitalRaymon Connolly MD MD cha Ballard, Brenda RN RN bb Mamie Brown RN RN tw2 Corrections: (The following items were deleted from the chart) 07:46 06:42 01/19/2019 06:42 Discharged to Home. Impression: Bipolar disorder; Schizophrenia, tw2 unspecified; Rhabdomyolysis. Condition is Stable. Discharge Instructions: Bipolar Disorder, Substance Use Disorder, Schizophrenia, Stimulant Use Disorder-Methamphetamines, Rhabdomyolysis. Forms are Medication Reconciliation Form, Thank You Letter, Antibiotic Education, Prescription Opioid Use. Follow up: Private Physician; When: 2 - 3 days; Reason: Recheck today's complaints, Continuance of care, Re-evaluation by your physician. Problem is new. Symptoms have improved. greyson
[2019-01-19 08:14] VITALS: BP 102/60; O2SAT 100
--- NOTE | 2019-01-19 14:50 | EKG ---
Test Date: 2019-01-19 Test Time: 05:24:39 Roll Hand: ALINE MEASUREMENT RESULTS: Intervals: Rate: 103 [place]: 136 QRSD: 94 QT: 354 QTc: 463 [place]: P: 73 [place]: 136 QRS: 79 T: 36 INTERPRETIVE STATEMENTS: Sinus tachycardia Otherwise normal ECG Compared to ECG 01/16/2019 21:56:52 Sinus rhythm no longer present Incomplete right bundle-branch block no longer present Electronically Signed On 01-19-19 14:49:05 CDT by Ángel Maki
== END 2019-01-19 07:46 | disposition home or self-care (01) ==
LOC: ER 04:58
DX: F31.9 Bipolar disorder, unspecified (principal); F20.9 Schizophrenia, unspecified; M62.82 Rhabdomyolysis; Z88.8 Allergy status to other drugs, medicaments and biological substances; F17.210 Nicotine dependence, cigarettes, uncomplicated
CPT/HCPCS: 36415; 80048; 80076; 80164; 80307; 80320; 80329; 81003; 82550; 82553; 85025; 85610; 85730; 93005; 96360; 96361; 99284; J7030

== ENCOUNTER 2019-01-19 22:04 | Emergency (ER) | payer SELFPAY ==
--- OUTSIDE RECORDS SUMMARY | 2019-01-19 22:09 | XMS REPORT ---
:1990 [facility] Address [address] [place] [address] Care Team Providers Name Role Phone Unavailable Unavailable Unavailable Problems This patient has no known problems. Allergies, Adverse Reactions, Alerts This patient has no known allergies or adverse reactions. Medications This patient has no known medications.
[2019-01-19 23:03] LABS: Absolute Lymphocytes (CBC) 2.1 K/uL (0.7-4.9); Basophils % 0.6 % (0-1.3); Hematocrit 36.5 % (39.6-49.0); Lymphocytes % 26.7 % (15.3-44.8); MPV 9.5 fL (7.6-11.3)
[2019-01-19 23:11] LABS: ALT/SGPT 48 U/L (12-78); AST/SGOT 54 U/L (15-37); Albumin 3.7 g/dL (3.4-5.0); Alkaline Phosphatase 84 U/L (45-117); BUN Blood Urea Nitrogen 12 mg/dL (7-18); Bicarbonate 29 mmol/L (21-32); Bilirubin Direct 0.1 mg/dL (0-0.2); Bilirubin Total 0.2 mg/dL (0.2-1.0); Glucose Level 95 mg/dL (74-106); Protein, Total 6.8 g/dL (6.4-8.2); Sodium Level 143 mmol/L (136-145)
[2019-01-19 23:28] LABS: Barbiturates NEGATIVE (NEGATIVE); Benzodiazepines NEGATIVE (NEGATIVE); Cocaine NEGATIVE (NEGATIVE); METHAMPHETAM POSITIVE (NEGATIVE); Methadone NEGATIVE (NEGATIVE); Opiates NEGATIVE (NEGATIVE); Phencyclidine NEGATIVE (NEGATIVE); THC Cannibis NEGATIVE (NEGATIVE)
--- NOTE | 2019-01-19 23:49 | ER ---
Nurse's Notes [facility] Name: Carlos Walker Age: 28 yrs Sex: Male : 1990 Arrival Date: 01/19/2019 Time: 22:05 Bed 5 Private MD: Diagnosis: Schizophrenia;Bipolar disorder;Abuse of non-psychoactive substances;Adverse effect of amphetamines Presentation: 01/19 22:05 Presenting complaint: EMS states: that they were contacted by police dept to state that fc pt has been suicidal x 3 days. Also having pain in joints, teeth and had a lac above left eye. Pt denies any pain upon arrival and was here this am and said nothing about being suicidal at that time. Transition of care: patient was not received from another setting of care. Onset of symptoms was January 16, 2019. Risk Assessment: Do you want to hurt yourself or someone else? Patient reports desire/thoughts of hurting themselves or someone else. Provider notified. Initial Sepsis Screen: Does the patient meet any 2 criteria? No. Patient's initial sepsis screen is negative. Does the patient have a suspected source of infection? No. Patient's initial sepsis screen is negative. Care prior to arrival: None. 22:05 Method Of Arrival: EMS: [facility] 22:05 Acuity: EDD 2 fc Historical: - Allergies: 22:21 Abilify; fc 22:21 Promethazine; fc - PMHx: 22:21 manic bipolar disorder; Schizophrenia; fc - PSHx: 22:21 None; fc - Immunization history:: Last tetanus immunization: unknown. - Social history:: Smoking status: Patient uses tobacco products, smokes one pack cigarettes per day. Patient uses alcohol, on a daily basis. street drugs, marijuana, Methamphetamine (Meth). - Ebola Screening: : Patient negative for fever greater than or equal to 101.5 degrees Fahrenheit, and additional compatible Ebola Virus Disease symptoms Patient denies exposure to infectious person Patient denies travel to an Ebola-affected area in the 21 days before illness onset. - Family history:: not pertinent. Screenin:17 Abuse screen: Denies threats or abuse. Nutritional screening: No deficits noted. fc Tuberculosis screening: No symptoms or risk factors identified. Fall Risk None identified. Assessment: 22:21 General: Appears in no apparent distress. uncomfortable, Behavior is cooperative, jd3 appropriate for age, anxious, Reports suicidal behavior. Pain: Denies pain. Neuro: Level of Consciousness is awake, alert, obeys commands, Oriented to person, place, time, situation. Cardiovascular: Denies chest pain, shortness of breath, Capillary refill < 3 seconds Patient's skin is warm and dry. Respiratory: Airway is patent Respiratory effort is even, unlabored, Respiratory pattern is regular, symmetrical, Denies cough, shortness of breath. GI: No signs and/or symptoms were reported involving the gastrointestinal system. : No signs and/or symptoms were reported regarding the genitourinary system. EENT: No signs and/or symptoms were reported regarding the EENT system. Derm: Skin is intact, Skin is dry, Skin is normal, Skin temperature is warm. Musculoskeletal: Circulation, motion, and sensation intact. Range of motion: intact in all extremities. 23:00 Reassessment: Patient appears in no apparent distress at this time. Patient and/or jd3 family updated on plan of care and expected duration. Pain level reassessed. Patient is alert, oriented x 3, equal unlabored respirations, skin warm/dry/pink. pt resting in bed, awaiting [facility] evaluation. no distress noted at this time. IV in place, no redness or swelling noted. 23:45 Reassessment: [place] public service representative at bedside. jd3 01/20 00:00 Reassessment: Patient appears in no apparent distress at this time. Patient and/or jd3 family updated on plan of care and expected duration. Pain level reassessed. Patient is alert, oriented x 3, equal unlabored respirations, skin warm/dry/pink. [place] rep finished talking with pt. sitter at bedside, pt denies pain. 00:21 Reassessment: Reassessment: pt speaking angrily towards nurse/sitter, reassurance jd3 given, patient apologized. pt in bed resting calmly with even and unlabored respirations. no distress noted at this time. nurse/sitter at bedside. 01:00 Reassessment: Patient appears in no apparent distress at this time. Patient and/or jd3 family updated on plan of care and expected duration. Pain level reassessed. Patient is alert, oriented x 3, equal unlabored respirations, skin warm/dry/pink. awaiting bed placement. sandwich, chips, and water given to patient. Patient denies pain at this time. 02:00 Reassessment: Patient appears in no apparent distress at this time. Patient and/or wh family updated on plan of care and expected duration. Pain level reassessed. Patient is alert, oriented x 3, equal unlabored respirations, skin warm/dry/pink. Patient denies pain at this time. 03:00 Reassessment: Patient appears in no apparent distress at this time. Patient and/or wh family updated on plan of care and expected duration. Pain level reassessed. Patient is alert, oriented x 3, equal unlabored respirations, skin warm/dry/pink. Patient denies pain at this time. 04:00 Reassessment: Patient appears in no apparent distress at this time. Patient and/or wh family updated on plan of care and expected duration. Pain level reassessed. Patient is alert, oriented x 3, equal unlabored respirations, skin warm/dry/pink. Patient denies pain at this time. 05:00 Reassessment: Patient appears in no apparent distress at this time. Patient and/or wh family updated on plan of care and expected duration. Pain level reassessed. Patient is alert, oriented x 3, equal unlabored respirations, skin warm/dry/pink. Pt sleeping Patient denies pain at this time. 06:00 Reassessment: Patient appears in no apparent distress at this time. Patient and/or jd3 family updated on plan of care and expected duration. Pain level reassessed. Patient is alert, oriented x 3, equal unlabored respirations, skin warm/dry/pink. pt resting in bed with eyes closed, even and unlabored respirations. sitter/nurse at bedside. 07:10 General: Appears in no apparent distress. comfortable, Behavior is calm, cooperative, sv appropriate for age. Neuro: Level of Consciousness is obeys commands, Oriented to person, place, time, situation. Respiratory: Respiratory effort is even, unlabored, Respiratory pattern is regular, symmetrical. Derm: Skin is normal. Musculoskeletal: Range of motion: intact in all extremities. 09:37 Reassessment: Patient appears in no apparent distress at this time. No changes from sv previously documented assessment. Patient and/or family updated on plan of care and expected duration. Pain level reassessed. Patient is alert, oriented x 3, equal unlabored respirations, skin warm/dry/pink. 11:00 Reassessment: Patient appears in no apparent distress at this time. No changes from sv previously documented assessment. Patient and/or family updated on plan of care and expected duration. Pain level reassessed. Patient is alert, oriented x 3, equal unlabored respirations, skin warm/dry/pink. Pt given food and juice. 13:00 Reassessment: Patient appears in no apparent distress at this time. No changes from sv previously documented assessment. Patient and/or family updated on plan of care and expected duration. Pain level reassessed. Patient is alert, oriented x 3, equal unlabored respirations, skin warm/dry/pink. 15:00 Reassessment: Patient appears in no apparent distress at this time. No changes from sv previously documented assessment. Patient and/or family updated on plan of care and expected duration. Pain level reassessed. Patient is alert, oriented x 3, equal unlabored respirations, skin warm/dry/pink. 17:00 Reassessment: Patient appears in no apparent distress at this time. No changes from sv previously documented assessment. Patient and/or family updated on plan of care and expected duration. Pain level reassessed. Patient is alert, oriented x 3, equal unlabored respirations, skin warm/dry/pink. 18:50 Reassessment: Patient appears in no apparent distress at this time. No changes from sv previously documented assessment. Patient and/or family updated on plan of care and expected duration. Pain level reassessed. Patient is alert, oriented x 3, equal unlabored respirations, skin warm/dry/pink. 19:15 Reassessment: Patient appears in no apparent distress at this time. Patient and/or cc3 family updated on plan of care and expected duration. Pain level reassessed. Patient is alert, oriented x 3, equal unlabored respirations, skin warm/dry/pink. Received this male patient from morning shift YOHANNES Quezada as a case of suicidal ideation. No IV cannula in situ. Patient denies pain at this time. General: Appears in no apparent distress. comfortable, Behavior is calm, cooperative, appropriate for age. Pain: Denies pain. Neuro: Level of Consciousness is awake, alert, obeys commands, Oriented to person, place, time, situation. Cardiovascular: Denies chest pain, Capillary refill < 3 seconds Patient's skin is warm and dry. Respiratory: Airway is patent Respiratory effort is even, unlabored, Respiratory pattern is regular, symmetrical. GI: Abdomen is flat. : No signs and/or symptoms were reported regarding the genitourinary system. EENT: No signs and/or symptoms were reported regarding the EENT system. Derm: Skin is intact, is healthy with good turgor, Skin is pink, warm \T\ dry. normal. Musculoskeletal: Circulation, motion, and sensation intact. Range of motion: intact in all extremities. 20:18 Reassessment: Patient appears in no apparent distress at this time. Patient and/or cc3 family updated on plan of care and expected duration. Pain level reassessed. Patient is alert, oriented x 3, equal unlabored respirations, skin warm/dry/pink. sitter present Patient denies pain at this time. 21:12 Reassessment: Patient appears in no apparent distress at this time. Patient and/or cc3 family updated on plan of care and expected duration. Pain level reassessed. Patient is alert, oriented x 3, equal unlabored respirations, skin warm/dry/pink. sitter present Patient denies pain at this time. 22:25 Reassessment: Patient appears in no apparent distress at this time. Patient and/or cc3 family updated on plan of care and expected duration. Pain level reassessed. Patient is alert, oriented x 3, equal unlabored respirations, skin warm/dry/pink. sitter present Patient denies pain at this time. 23:17 Reassessment: Patient appears in no apparent distress at this time. Patient and/or cc3 family updated on plan of care and expected duration. Pain level reassessed. Patient is alert, oriented x 3, equal unlabored respirations, skin warm/dry/pink. sitter present Patient denies pain at this time. 01/21 00:18 Reassessment: Patient appears in no apparent distress at this time. Patient and/or cc3 family updated on plan of care and expected duration. Pain level reassessed. Patient is alert, oriented x 3, equal unlabored respirations, skin warm/dry/pink. sitter present Patient denies pain at this time. 01:45 Reassessment: Patient appears in no apparent distress at this time. Patient comfortably cc3 sleeping, kept undisturbed. Sitter present. 02:18 Reassessment: Patient appears in no apparent distress at this time. Patient sleeping, cc3 kept undisturbed. Sitter present. 03:45 Reassessment: Patient appears in no apparent distress at this time. Patient sleeping cc3 comfortably. Sitter present. 04:12 Reassessment: Patient appears in no apparent distress at this time. patient comfortably cc3 sleeping. Sitter present. 05:39 Reassessment: Patient appears in no apparent distress at this time. patient sleeping, cc3 kept undisturbed. sitter present. 06:20 Reassessment: Patient appears in no apparent distress at this time. Patient and/or cc3 family updated on plan of care and expected duration. Pain level reassessed. Patient is alert, oriented x 3, equal unlabored respirations, skin warm/dry/pink. sitter present Patient denies pain at this time. 07:10 General: Appears in no apparent distress. comfortable, Behavior is calm, cooperative, sv appropriate for age. Pain: Denies pain. Neuro: Level of Consciousness is awake, alert, obeys commands, Oriented to person, place, time, situation, Moves all extremities. Full function. Respiratory: Airway is patent Respiratory effort is even, unlabored, Respiratory pattern is regular, symmetrical. Derm: Skin is pink, warm \T\ dry. 08:45 Reassessment: Nurse to nurse report given to Slime SHEFFIELD at [facility]. She sv gave me a pager # of [phone] to speak to the resident and our MD is to call the ED at [phone]. 09:30 Reassessment: Patient appears in no apparent distress at this time. No changes from sv previously documented assessment. Patient and/or family updated on plan of care and expected duration. Pain level reassessed. Patient is alert, oriented x 3, equal unlabored respirations, skin warm/dry/pink. Psych: 01/19 22:19 Subjective: Patient's mood is sad. Objective: Patient is cooperative, Speech is normal, jd3 Affect is appropriate. Interventions: Removed personal items and placed in bag. Patient placed in hospital gown. Searched person for dangerous items. Urine collected and sent for urine drug test. Belonging list filled out. Suicide Risk Assessment: Sad Person Scale: Sex of patient: Male: Score 1 point. Age of patient: Score 1 point if patient 15-34. Depression: Score 1 point if signs of depression are present. Previous Attempt: Score 1 point if patient has previously attempted suicide. Substance Abuse: Score 1 point if patient abuses alcohol or drugs. Rational Thinking: Score 0 point if patient has rational thinking. Social Support: Score 1 point if social support is lacking and/or unavailable. Organized Plan: Score 0 if patient did not have an organized plan in place. Relationship: Score 1 point if patient is , , , or for a single male Chronic Sickness: Score 0 point if patient does not have a chronic illness, debilitating, or severe disorder. TOTAL POINTS: If total points are 7-10, the proposed clinical action is to hospitalize or commit. Implement suicide precautions. Safety Checks: Personal items have been removed. Door is open. No visitors are present at this time. sitter at bedside. Patient uses of beer, Patient uses marijuana Patient uses methamphetamines. Vital Signs: 22:05 BP 132 / 99; Pulse 90; Resp 18; Temp 98.1(O); Pulse Ox 99% on R/A; Weight 68.04 kg (R); fc Height 5 ft. 8 in. (172.72 cm) (R); Pain 0/10; 01/20 02:00 BP 136 / 76; Pulse 91; Resp 18; Temp 98; Pulse Ox 100% on R/A; wh 06:00 BP 125 / 85; Pulse 63; Resp 16 S; Pulse Ox 100% on R/A; Pain 0/10; jd3 10:00 BP 127 / 76; Pulse 67; Resp 18; Pulse Ox 100% on R/A; ms 15:37 BP 137 / 68; Pulse 63; Resp 18; Pulse Ox 100% ; ms 20:54 BP 118 / 67; Pulse 65; Resp 18; Pulse Ox 100% on R/A; lc1 01/21 00:00 BP 106 / 64; Pulse 60; Resp 16; Pulse Ox 96% on R/A; lc1 04:00 BP 110 / 76; Pulse 57; Resp 16; Pulse Ox 96% on R/A; lc1 08:00 BP 110 / 72; Pulse 68; Resp 16; Temp 97.6; Pulse Ox 100% on R/A; Pain 0/10; em1 01/19 22:05 Body Mass Index 22.81 (68.04 kg, 172.72 cm) ED Course: 01/19 22:05 Patient arrived in ED. greyson 22:05 Arm band placed on Patient placed in an exam room, on a stretcher. 22:16 Triage completed. 22:17 Raymon Avendano MD is Attending Physician. [facility] 22:17 Patient has correct armband on for positive identification. Placed in gown. Bed in low fc position. Call light in reach. 22:17 No provider procedures requiring assistance completed. 22:24 Sunil Boyd RN is Primary Nurse. jd3 22:25 Warm blanket given. jd3 22:45 Safety Checks: Personal items have been removed. The door is open or patient has been wh placed in a hallway bed/chair. There are no family/friend visitors at this time Sitter present at this time. 23:00 Safety Checks: Personal items have been removed. The door is open or patient has been jd3 placed in a hallway bed/chair. There are no family/friend visitors at this time Sitter present at this time. 23:15 Safety Checks: Personal items have been removed. The door is open or patient has been jd3 placed in a hallway bed/chair. There are no family/friend visitors at this time Sitter present at this time. 23:30 Safety Checks: Personal items have been removed. The door is open or patient has been jd3 placed in a hallway bed/chair. There are no family/friend visitors at this time Sitter present at this time. 23:45 Safety Checks: Personal items have been removed. The door is open or patient has been jd3 placed in a hallway bed/chair. There are no family/friend visitors at this time Sitter present at this time. 01/20 00:00 Safety Checks: Personal items have been removed. The door is open or patient has been jd3 placed in a hallway bed/chair. There are no family/friend visitors at this time Sitter present at this time. 00:15 Safety Checks: Personal items have been removed. The door is open or patient has been jd3 placed in a hallway bed/chair. There are no family/friend visitors at this time Sitter present at this time. 00:21 Verbal reassurance given. jd3 00:30 Safety Checks: Personal items have been removed. The door is open or patient has been jd3 placed in a hallway bed/chair. There are no family/friend visitors at this time Sitter present at this time. 00:45 Safety Checks: Personal items have been removed. The door is open or patient has been jd3 placed in a hallway bed/chair. There are no family/friend visitors at this time Sitter present at this time. 01:00 Safety Checks: Personal items have been removed. The door is open or patient has been wh placed in a hallway bed/chair. There are no family/friend visitors at this time Sitter present at this time. 01:15 Safety Checks: Personal items have been removed. The door is open or patient has been wh placed in a hallway bed/chair. There are no family/friend visitors at this time Sitter present at this time. 01:30 Safety Checks: Personal items have been removed. The door is open or patient has been wh placed in a hallway bed/chair. There are no family/friend visitors at this time Sitter present at this time. 01:45 Safety Checks: Personal items have been removed. The door is open or patient has been wh placed in a hallway bed/chair. There are no family/friend visitors at this time Sitter present at this time. 02:00 Safety Checks: Personal items have been removed. The door is open or patient has been wh placed in a hallway bed/chair. There are no family/friend visitors at this time Sitter present at this time. 02:15 Safety Checks: Personal items have been removed. The door is open or patient has been jd3 placed in a hallway bed/chair. There are no family/friend visitors at this time Sitter present at this time. 02:30 Safety Checks: Personal items have been removed. The door is open or patient has been jd3 placed in a hallway bed/chair. There are no family/friend visitors at this time Sitter present at this time. 02:45 Safety Checks: Personal items have been removed. The door is open or patient has been jd3 placed in a hallway bed/chair. There are no family/friend visitors at this time Sitter present at this time. 03:00 Safety Checks: Personal items have been removed. The door is open or patient has been wh placed in a hallway bed/chair. There are no family/friend visitors at this time Sitter present at this time. 03:15 Safety Checks: Personal items have been removed. The door is open or patient has been wh placed in a hallway bed/chair. There are no family/friend visitors at this time Sitter present at this time. 03:30 Safety Checks: Personal items have been removed. The door is open or patient has been wh placed in a hallway bed/chair. There are no family/friend visitors at this time Sitter present at this time. 03:45 Safety Checks: Personal items have been removed. The door is open or patient has been wh placed in a hallway bed/chair. There are no family/friend visitors at this time Sitter present at this time. 04:00 Safety Checks: Personal items have been removed. The door is open or patient has been wh placed in a hallway bed/chair. There are no family/friend visitors at this time Sitter present at this time. 04:15 Safety Checks: Personal items have been removed. The door is open or patient has been wh placed in a hallway bed/chair. There are no family/friend visitors at this time Sitter present at this time. 04:30 Safety Checks: Personal items have been removed. The door is open or patient has been wh placed in a hallway bed/chair. There are no family/friend visitors at this time Sitter present at this time. 04:45 Safety Checks: Personal items have been removed. The door is open or patient has been wh placed in a hallway bed/chair. There are no family/friend visitors at this time Sitter present at this time. 05:00 Safety Checks: Personal items have been removed. The door is open or patient has been wh placed in a hallway bed/chair. There are no family/friend visitors at this time Sitter present at this time. 05:15 Safety Checks: Personal items have been removed. The door is open or patient has been wh placed in a hallway bed/chair. There are no family/friend visitors at this time Sitter present at this time. 05:30 Safety Checks: Personal items have been removed. The door is open or patient has been jd3 placed in a hallway bed/chair. There are no family/friend visitors at this time Sitter present at this time. 05:45 Safety Checks: Personal items have been removed. The door is open or patient has been jd3 placed in a hallway bed/chair. There are no family/friend visitors at this time Sitter present at this time. 06:00 Safety Checks: Personal items have been removed. The door is open or patient has been jd3 placed in a hallway bed/chair. There are no family/friend visitors at this time Sitter present at this time. 06:15 Safety Checks: Personal items have been removed. The door is open or patient has been jd3 placed in a hallway bed/chair. There are no family/friend visitors at this time Sitter present at this time. 06:30 Safety Checks: Personal items have been removed. The door is open or patient has been jd3 placed in a hallway bed/chair. There are no family/friend visitors at this time Sitter present at this time. 06:45 Safety Checks: Personal items have been removed. The door is open or patient has been jd3 placed in a hallway bed/chair. There are no family/friend visitors at this time Sitter present at this time. 07:00 Safety checks: Items removed: yes. Door open/sign placed on door: yes. Family/friend ms present: no. Sitter present: Yes. 07:15 Safety checks: Items removed: yes. Door open/sign placed on door: yes. Family/friend dh3 present: no. Sitter present: Yes. 07:19 Primary Nurse role handed off by Sunil Boyd RN sv 07:19 Pilar Malin RN is Primary Nurse. sv 07:19 Acetaminophen Sent. sv 07:19 Basic Metabolic Panel Sent. sv 07:29 faxed the patient records to the following facilities in the attempt to initiate a eb transfer : [facility], [facility], [facility], [facility], [facility], [facility], [facility], [facility], [facility], [facility], [facility], [facility], [facility] and [facility]. 07:30 Safety checks: Items removed: yes. Door open/sign placed on door: yes. Family/friend dh3 present: no. Sitter present: Yes. 07:45 Safety checks: Items removed: yes. Door open/sign placed on door: yes. Family/friend ms present: no. Sitter present: Yes. 08:00 Safety checks: Items removed: yes. Door open/sign placed on door: yes. Family/friend ms present: no. Sitter present: Yes. 08:15 Safety checks: Items removed: yes. Door open/sign placed on door: yes. Family/friend ms present: no. Sitter present: Yes. 08:30 Safety checks: Items removed: yes. Door open/sign placed on door: yes. Family/friend ms present: no. Sitter present: Yes. 08:45 Safety checks: Items removed: yes. Door open/sign placed on door: yes. Family/friend ms present: no. Sitter present: Yes. 08:53 Rd from [facility] called to decline patient due to being at capacity. eb 09:00 Safety checks: Items removed: yes. Door open/sign placed on door: yes. Family/friend ms present: no. Sitter present: Yes. 09:15 Safety checks: Items removed: yes. Door open/sign placed on door: yes. Family/friend ms present: no. Sitter present: Yes. 09:30 Safety checks: Items removed: yes. Door open/sign placed on door: yes. Family/friend ms present: no. Sitter present: Yes. 09:45 Safety checks: Items removed: yes. Door open/sign placed on door: yes. Family/friend dh3 present: no. Sitter present: Yes. 10:00 Safety checks: Items removed: yes. Door open/sign placed on door: yes. Family/friend dh3 present: no. Sitter present: Yes. 10:15 Safety checks: Items removed: yes. Door open/sign placed on door: yes. Family/friend dh3 present: no. Sitter present: Yes. 10:30 Safety checks: Items removed: yes. Door open/sign placed on door: yes. Family/friend ms present: no. Sitter present: Yes. 10:37 Diet: Patient given snack. Patient given water. ms 10:45 Safety checks: Items removed: yes. Door open/sign placed on door: yes. Family/friend ms present: no. Sitter present: Yes. 11:00 Safety checks: Items removed: yes. Door open/sign placed on door: yes. Family/friend ms present: no. Sitter present: Yes. 11:15 Safety checks: Items removed: yes. Door open/sign placed on door: yes. Family/friend ms present: no. Sitter present: Yes. 11:30 Safety checks: Items removed: yes. Door open/sign placed on door: yes. Family/friend ms present: no. Sitter present: Yes. 11:45 Safety checks: Items removed: yes. Door open/sign placed on door: yes. Family/friend ms present: no. Sitter present: Yes. 12:00 Safety checks: Items removed: yes. Door open/sign placed on door: yes. Family/friend ms present: no. Sitter present: Yes. 12:15 Safety checks: Items removed: yes. Door open/sign placed on door: yes. Family/friend ms present: no. Sitter present: Yes. 12:30 Safety checks: Items removed: yes. Door open/sign placed on door: yes. Family/friend ms present: no. Sitter present: Yes. 13:00 Safety checks: Items removed: yes. Door open/sign placed on door: yes. Family/friend ms present: no. Sitter present: Yes. 13:15 Safety checks: Items removed: yes. Door open/sign placed on door: yes. Family/friend ms present: no. Sitter present: Yes. 13:30 Safety checks: Items removed: yes. Door open/sign placed on door: yes. Family/friend ms present: no. Sitter present: Yes. 13:45 Safety checks: Items removed: yes. Door open/sign placed on door: yes. Family/friend ms present: no. Sitter present: Yes. 14:00 Safety checks: Items removed: yes. Door open/sign placed on door: yes. Family/friend ms present: no. Sitter present: Yes. 14:15 Safety checks: Items removed: yes. Door open/sign placed on door: yes. Family/friend ms present: no. Sitter present: Yes. Safety checks:. 14:30 Safety checks: Items removed: yes. Door open/sign placed on door: yes. Family/friend ms present: no. Sitter present: Yes. 14:45 Safety checks: Items removed: yes. Door open/sign placed on door: yes. Family/friend ms present: no. Sitter present: Yes. 15:00 Safety checks: Items removed: yes. Door open/sign placed on door: yes. Family/friend ms present: no. Sitter present: Yes. 15:15 Safety checks: Items removed: yes. Door open/sign placed on door: yes. Family/friend ms present: no. Sitter present: Yes. 15:30 Safety checks: Items removed: yes. Door open/sign placed on door: yes. Family/friend ms present: no. Sitter present: Yes. 15:45 Safety checks: Items removed: yes. Door open/sign placed on door: yes. Family/friend ms present: no. Sitter present: Yes. 16:00 Safety checks: Items removed: yes. Door open/sign placed on door: yes. Family/friend ms present: no. Sitter present: Yes. 16:15 Safety checks: Items removed: yes. Door open/sign placed on door: yes. Family/friend ms present: no. Sitter present: Yes. 16:30 Safety checks: Items removed: yes. Door open/sign placed on door: yes. Family/friend ms present: no. Sitter present: Yes. 16:45 Safety checks: Items removed: yes. Door open/sign placed on door: yes. Family/friend ms present: no. Sitter present: Yes. 17:00 Safety checks: Items removed: yes. Door open/sign placed on door: yes. Family/friend ms present: no. Sitter present: Yes. 17:15 Safety checks: Items removed: yes. Door open/sign placed on door: yes. Family/friend ms present: no. Sitter present: Yes. 17:30 Safety checks: Items removed: yes. Door open/sign placed on door: yes. Family/friend ms present: no. Sitter present: Yes. 17:45 Safety checks: Items removed: yes. Door open/sign placed on door: yes. Family/friend ms present: no. Sitter present: Yes. 18:00 Safety checks: Items removed: yes. Door open/sign placed on door: yes. Family/friend ms present: no. Sitter present: Yes. 18:15 Safety checks: Items removed: yes. Door open/sign placed on door: yes. Family/friend ms present: no. Sitter present: Yes. 18:30 Safety checks: Items removed: yes. Door open/sign placed on door: yes. Family/friend ms present: no. Sitter present: Yes. 18:45 Safety checks: Items removed: yes. Door open/sign placed on door: yes. Family/friend ms present: no. Sitter present: Yes. 19:02 Report given to Marlyn RN and Camille RN. sv 19:03 Primary Nurse role handed off by Pilar Malin RN sv 19:03 Safety checks: Items removed: yes. Door open/sign placed on door: yes. Family/friend oe present: no. Sitter present: Yes. 19:15 Safety checks: Items removed: yes. Door open/sign placed on door: yes. Family/friend oe present: no. Sitter present: Yes. 19:27 Diet tray given. oe 19:30 Safety checks: Items removed: yes. Door open/sign placed on door: yes. Family/friend oe present: no. Sitter present: Yes. 19:41 Camille Witt is Primary Nurse. [facility] 19:45 Safety checks: Items removed: yes. Door open/sign placed on door: yes. Family/friend oe present: no. Sitter present: Yes. 20:00 Safety checks: Items removed: yes. Door open/sign placed on door: yes. Family/friend oe present: no. Sitter present: Yes. 20:15 Safety checks: Items removed: yes. Door open/sign placed on door: yes. Family/friend oe present: no. Sitter present: Yes. 20:30 Safety Checks: Personal items have been removed. The door is open or patient has been lc1 placed in a hallway bed/chair. There are no family/friend visitors at this time Sitter present at this time. 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 20:30 Safety checks: Items removed: yes. Door open/sign placed on door: yes. Family/friend oe present: no. Sitter present: No. 20:45 Safety Checks: Personal items have been removed. The door is open or patient has been lc1 placed in a hallway bed/chair. There are no family/friend visitors at this time Sitter present at this time. 21:00 Safety Checks: Personal items have been removed. The door is open or patient has been lc1 placed in a hallway bed/chair. There are no family/friend visitors at this time Sitter present at this time. requested water, cup given. 21:15 Safety Checks: Personal items have been removed. The door is open or patient has been lc1 placed in a hallway bed/chair. There are no family/friend visitors at this time Sitter present at this time. 21:30 Safety Checks: Personal items have been removed. The door is open or patient has been lc1 placed in a hallway bed/chair. There are no family/friend visitors at this time Sitter present at this time. 21:45 Safety Checks: Personal items have been removed. The door is open or patient has been lc1 placed in a hallway bed/chair. There are no family/friend visitors at this time Sitter present at this time. 22:00 Safety Checks: Personal items have been removed. The door is open or patient has been lc1 placed in a hallway bed/chair. There are no family/friend visitors at this time Sitter present at this time. pillow given. 22:15 Safety Checks: Personal items have been removed. The door is open or patient has been lc1 placed in a hallway bed/chair. There are no family/friend visitors at this time Sitter present at this time. 22:30 Safety Checks: Personal items have been removed. The door is open or patient has been lc1 placed in a hallway bed/chair. There are no family/friend visitors at this time Sitter present at this time. 22:45 Safety Checks: Personal items have been removed. The door is open or patient has been lc1 placed in a hallway bed/chair. There are no family/friend visitors at this time Sitter present at this time. 23:00 Safety Checks: Personal items have been removed. The door is open or patient has been lc1 placed in a hallway bed/chair. There are no family/friend visitors at this time Sitter present at this time. 23:15 Safety Checks: Personal items have been removed. The door is open or patient has been lc1 placed in a hallway bed/chair. There are no family/friend visitors at this time Sitter present at this time. 23:30 Safety Checks: Personal items have been removed. The door is open or patient has been lc1 placed in a hallway bed/chair. There are no family/friend visitors at this time Sitter present at this time. 23:45 Safety Checks: Personal items have been removed. The door is open or patient has been lc1 placed in a hallway bed/chair. There are no family/friend visitors at this time Sitter present at this time. 01/21 00:00 Safety Checks: Personal items have been removed. The door is open or patient has been lc1 placed in a hallway bed/chair. There are no family/friend visitors at this time Sitter present at this time. 00:15 Safety Checks: Personal items have been removed. The door is open or patient has been lc1 placed in a hallway bed/chair. There are no family/friend visitors at this time Sitter present at this time. 00:30 Safety Checks: Personal items have been removed. The door is open or patient has been lc1 placed in a hallway bed/chair. There are no family/friend visitors at this time Sitter present at this time. 00:45 Safety Checks: Personal items have been removed. The door is open or patient has been lc1 placed in a hallway bed/chair. There are no family/friend visitors at this time Sitter present at this time. 01:00 Safety Checks: Personal items have been removed. The door is open or patient has been lc1 placed in a hallway bed/chair. There are no family/friend visitors at this time Sitter present at this time. 01:15 Safety Checks: Personal items have been removed. The door is open or patient has been lc1 placed in a hallway bed/chair. There are no family/friend visitors at this time Sitter present at this time. 01:30 Safety Checks: Personal items have been removed. The door is open or patient has been lc1 placed in a hallway bed/chair. There are no family/friend visitors at this time Sitter present at this time. 01:45 Safety Checks: Personal items have been removed. The door is open or patient has been lc1 placed in a hallway bed/chair. There are no family/friend visitors at this time Sitter present at this time. 02:00 Safety Checks: Personal items have been removed. The door is open or patient has been lc1 placed in a hallway bed/chair. There are no family/friend visitors at this time Sitter present at this time. 02:15 Safety Checks: Personal items have been removed. The door is open or patient has been lc1 placed in a hallway bed/chair. There are no family/friend visitors at this time Sitter present at this time. 02:30 Safety Checks: Personal items have been removed. The door is open or patient has been lc1 placed in a hallway bed/chair. There are no family/friend visitors at this time Sitter present at this time. 02:45 Safety Checks: Personal items have been removed. The door is open or patient has been lc1 placed in a hallway bed/chair. There are no family/friend visitors at this time Sitter present at this time. 03:00 Safety Checks: Personal items have been removed. The door is open or patient has been lc1 placed in a hallway bed/chair. There are no family/friend visitors at this time Sitter present at this time. 03:15 Safety Checks: Personal items have been removed. The door is open or patient has been lc1 placed in a hallway bed/chair. There are no family/friend visitors at this time Sitter present at this time. 03:30 Safety Checks: Personal items have been removed. The door is open or patient has been lc1 placed in a hallway bed/chair. There are no family/friend visitors at this time Sitter present at this time. 03:45 Safety Checks: Personal items have been removed. The door is open or patient has been lc1 placed in a hallway bed/chair. There are no family/friend visitors at this time Sitter present at this time. 04:00 Safety Checks: Personal items have been removed. The door is open or patient has been lc1 placed in a hallway bed/chair. There are no family/friend visitors at this time Sitter present at this time. 04:15 Safety Checks: Personal items have been removed. The door is open or patient has been lc1 placed in a hallway bed/chair. There are no family/friend visitors at this time Sitter present at this time. 04:30 Safety Checks: Personal items have been removed. The door is open or patient has been lc1 placed in a hallway bed/chair. There are no family/friend visitors at this time Sitter present at this time. 04:45 Safety Checks: Personal items have been removed. The door is open or patient has been lc1 placed in a hallway bed/chair. There are no family/friend visitors at this time Sitter present at this time. 05:00 Safety Checks: Personal items have been removed. The door is open or patient has been lc1 placed in a hallway bed/chair. There are no family/friend visitors at this time Sitter present at this time. 05:15 Safety Checks: Personal items have been removed. The door is open or patient has been lc1 placed in a hallway bed/chair. There are no family/friend visitors at this time Sitter present at this time. 05:30 Safety Checks: Personal items have been removed. The door is open or patient has been lc1 placed in a hallway bed/chair. There are no family/friend visitors at this time Sitter present at this time. 05:45 Safety Checks: Personal items have been removed. The door is open or patient has been lc1 placed in a hallway bed/chair. There are no family/friend visitors at this time Sitter present at this time. 06:00 Safety Checks: Personal items have been removed. The door is open or patient has been lc1 placed in a hallway bed/chair. There are no family/friend visitors at this time Sitter present at this time. 06:15 Safety Checks: Personal items have been removed. The door is open or patient has been lc1 placed in a hallway bed/chair. There are no family/friend visitors at this time Sitter present at this time. 06:30 Safety Checks: Personal items have been removed. The door is open or patient has been lc1 placed in a hallway bed/chair. There are no family/friend visitors at this time Sitter present at this time. 06:45 Safety Checks: Personal items have been removed. The door is open or patient has been lc1 placed in a hallway bed/chair. There are no family/friend visitors at this time Sitter present at this time. 07:00 Report given to YOHANNES Quezada and YOHANNES Roach. cc3 07:00 Safety checks: Items removed: yes. Door open/sign placed on door: yes. Family/friend em1 present: no. Sitter present: Yes. 07:15 Safety checks: Items removed: yes. Door open/sign placed on door: yes. Family/friend em1 present: no. Sitter present: Yes. 07:17 Pilar Malin, RN is Primary Nurse. sv 07:30 Safety checks: Items removed: yes. Door open/sign placed on door: yes. Family/friend em1 present: no. Sitter present: Yes. 07:45 Safety checks: Items removed: yes. Door open/sign placed on door: yes. Family/friend em1 present: no. Sitter present: Yes. 08:00 Safety checks: Items removed: yes. Door open/sign placed on door: yes. Family/friend em1 present: no. Sitter present: Yes. 08:15 Safety checks: Items removed: yes. Door open/sign placed on door: yes. Family/friend em1 present: no. Sitter present: Yes. 08:40 connected Slime from intake at [facility] with Pilar SHEFFIELD for nurse to nurse eb report. 08:45 Safety checks: Items removed: yes. Door open/sign placed on door: yes. Family/friend em1 present: no. Sitter present: Yes. 08:[address] Rosario the resident honing machine operator tool for [facility] with Dr. Avendano for patient eb transfer consultation. 08:56 connected the ED doctor on duty Dr. Norwood from [facility] with Dr. Avendano for eb patient transfer consultation. 08:59 administrative approval given by Rob Sanchez from [facility]. eb 09:00 Safety checks: Items removed: yes. Door open/sign placed on door: yes. Family/friend em1 present: no. Sitter present: Yes. 09:30 Patient did not have IV access during this emergency room visit. sv Administered Medications: No medications were administered Intake: 01/20 11:23 PO: 240ml (Water); Total: 240ml. sv 13:02 PO: 250ml (Water); Total: 490ml. ms 17:41 PO: 8ml (Soft Drink); Total: 498ml. ms 19:41 PO: 118ml (Juice); Total: 616ml. oe 21:00 PO: 240ml; Total: 856ml. lc1 23:11 PO: 480ml (Water); Total: 1336ml. lc1 Output: 15:54 Urine: 800ml (Voided); Total: 800ml. ms 17:41 Urine: 100ml (Voided); Total: 900ml. ms 19:30 Urine: 500ml (Voided); Total: 1400ml. oe 21:00 Urine: 600ml (Voided); Total: 2000ml. lc1 22:15 Urine: 600ml (Voided); Total: 2600ml. lc1 Outcome: 01/19 23:48 ER care complete, transfer ordered by . greyson 01/21 09:30 Transferred by ground EMS Transfer form completed. Note: Report given to EMS, pt sv sent to [facility] in [place] Condition: stable Instructed on the need for transfer. 09:31 Patient left the ED. sv Signatures: Pilar Malin RN RN sv Anderson, Corey, MD MD cha Chretien, Felicia, RN RN fc Solis, Maria ms Martinez, Reginaldo em1 Tavares, Judit lc1 Miguel Booth Deanna 3 Jose Johnson Jonathon, RN RN Jerilyn Foreman Charlene cc3 Corrections: (The following items were deleted from the chart) 01/20 00:10 00:00 Safety Checks: Personal items have been removed. The door is open or patient has jd3 been placed in a hallway bed/chair. There are no family/friend visitors at this time Sitter present at this time. jd3 00:20 01/19 22:19 Interventions: Removed personal items and placed in bag. Patient placed in [facility] gown. Searched person for dangerous items. Belonging list filled out. jd3 01/20 00:33 00:29 Reassessment: j j 00:46 00:21 Reassessment: pt speaking angrily towards nurse/sitter, reassurance given, jd3 patient apologized. pt in bed resting calmly with even and unlabored respirations. no distress noted at this time. nurse/sitter at bedside. Reassessment: pt speaking angrily towards nurse/sitter, reassurance given, patient apologized. pt in bed resting calmly with even and unlabored respirations. no distress noted at this time. nurse/sitter at bedside. jd3 12:40 12:39 Safety checks: Items removed: yes. Door open/sign placed on door: yes. ms Family/friend present: no. Sitter present: Yes. ms 18:40 16:41 Safety checks: Items removed: yes. Door open/sign placed on door: yes. ms Family/friend present: no. Sitter present: Yes. ms 20:27 20:03 Safety checks: Items removed: yes. Door open/sign placed on door: yes. oe Family/friend present: no. Sitter present: Yes. oe 01/21 00:26 07 20:27 Safety checks: Items removed: yes. Door open/sign placed on door: yes. oe Family/friend present: no. Sitter present: No. oe 01/21 08:02 07:34 Safety checks: Items removed: yes. Door open/sign placed on door: yes. em1 Family/friend present: no. Sitter present: Yes. em1
--- NOTE | 2019-01-19 23:50 | EDPHYS ---
Physician Documentation [facility] Name: Carlos Walker Age: 28 yrs Sex: Male : 1990 Arrival Date: 01/19/2019 Time: 22:05 Bed 5 Private MD: ED Physician Raymon Avendano HPI: 01/19 22:24 This 28 yrs old Male presents to ER via EMS with complaints of suicidal. greyson 22:24 The patient presents to the emergency department with psychosis, a history of substance greyson abuse. Onset: The symptoms/episode began/occurred just prior to arrival. Past psychiatric history: Prior diagnosis: schizophrenia, Psychiatric medications include: none. Associated signs and symptoms: The patient has no apparent associated signs or symptoms. The patient has experienced similar episodes in the past, multiple times. Historical: - Allergies: 22:21 Abilify; fc 22:21 Promethazine; fc - PMHx: 22:21 manic bipolar disorder; Schizophrenia; fc - PSHx: 22:21 None; fc - Immunization history:: Last tetanus immunization: unknown. - Social history:: Smoking status: Patient uses tobacco products, smokes one pack cigarettes per day. Patient uses alcohol, on a daily basis. street drugs, marijuana, Methamphetamine (Meth). - Ebola Screening: : Patient negative for fever greater than or equal to 101.5 degrees Fahrenheit, and additional compatible Ebola Virus Disease symptoms Patient denies exposure to infectious person Patient denies travel to an Ebola-affected area in the 21 days before illness onset. - Family history:: not pertinent. ROS: 22:24 Constitutional: Negative for fever, chills, and weight loss, Eyes: Negative for injury, greyson pain, redness, and discharge, ENT: Negative for injury, pain, and discharge, Neck: Negative for injury, pain, and swelling, Cardiovascular: Negative for chest pain, palpitations, and edema, Respiratory: Negative for shortness of breath, cough, wheezing, and pleuritic chest pain, Abdomen/GI: Negative for abdominal pain, nausea, vomiting, diarrhea, and constipation, Back: Negative for injury and pain, : Negative for injury, bleeding, discharge, and swelling, MS/Extremity: Negative for injury and deformity, Skin: Negative for injury, rash, and discoloration, Neuro: Negative for headache, weakness, numbness, tingling, and seizure, Allergy/Immunology: Negative for hives, rash, and allergies, Endocrine: Negative for neck swelling, polydipsia, polyuria, polyphagia, and marked weight changes, Hematologic/Lymphatic: Negative for swollen nodes, abnormal bleeding, and unusual bruising. 22:24 Psych: Positive for depression, suicidal ideation. Exam: 22:24 Constitutional: This is a well developed, well nourished patient who is awake, alert, greyson and in no acute distress. Head/Face: Normocephalic, atraumatic. Eyes: Pupils equal round and reactive to light, extra-ocular motions intact. Lids and lashes normal. Conjunctiva and sclera are non-icteric and not injected. Cornea within normal limits. Periorbital areas with no swelling, redness, or edema. ENT: Nares patent. No nasal discharge, no septal abnormalities noted. Tympanic membranes are normal and external auditory canals are clear. Oropharynx with no redness, swelling, or masses, exudates, or evidence of obstruction, uvula midline. Mucous membranes moist. Neck: Trachea midline, no thyromegaly or masses palpated, and no cervical lymphadenopathy. Supple, full range of motion without nuchal rigidity, or vertebral point tenderness. No Meningismus. Chest/axilla: Normal chest wall appearance and motion. Nontender with no deformity. No lesions are appreciated. Cardiovascular: Regular rate and rhythm with a normal S1 and S2. No gallops, murmurs, or rubs. Normal PMI, no JVD. No pulse deficits. Respiratory: Lungs have equal breath sounds bilaterally, clear to auscultation and percussion. No rales, rhonchi or wheezes noted. No increased work of breathing, no retractions or nasal flaring. Abdomen/GI: Soft, non-tender, with normal bowel sounds. No distension or tympany. No guarding or rebound. No evidence of tenderness throughout. Back: No spinal tenderness. No costovertebral tenderness. Full range of motion. Skin: Warm, dry with normal turgor. Normal color with no rashes, no lesions, and no evidence of cellulitis. MS/ Extremity: Pulses equal, no cyanosis. Neurovascular intact. Full, normal range of motion. Neuro: Awake and alert, GCS 15, oriented to person, place, time, and situation. Cranial nerves II-XII grossly intact. Motor strength 5/5 in all extremities. Sensory grossly intact. Cerebellar exam normal. Normal gait. 22:24 Psych: Behavior/mood is depressed, Affect is calm, Oriented to Patient has no thoughts/intents to harm self or others. Judgement / Insight is normal. Vital Signs: 22:05 BP 132 / 99; Pulse 90; Resp 18; Temp 98.1(O); Pulse Ox 99% on R/A; Weight 68.04 kg (R); fc Height 5 ft. 8 in. (172.72 cm) (R); Pain 0/10; 01/20 02:00 BP 136 / 76; Pulse 91; Resp 18; Temp 98; Pulse Ox 100% on R/A; wh 06:00 BP 125 / 85; Pulse 63; Resp 16 S; Pulse Ox 100% on R/A; Pain 0/10; jd3 10:00 BP 127 / 76; Pulse 67; Resp 18; Pulse Ox 100% on R/A; ms 15:37 BP 137 / 68; Pulse 63; Resp 18; Pulse Ox 100% ; ms 20:54 BP 118 / 67; Pulse 65; Resp 18; Pulse Ox 100% on R/A; lc1 01/21 00:00 BP 106 / 64; Pulse 60; Resp 16; Pulse Ox 96% on R/A; lc1 04:00 BP 110 / 76; Pulse 57; Resp 16; Pulse Ox 96% on R/A; lc1 08:00 BP 110 / 72; Pulse 68; Resp 16; Temp 97.6; Pulse Ox 100% on R/A; Pain 0/10; em1 01/19 22:05 Body Mass Index 22.81 (68.04 kg, 172.72 cm) fc MDM: 01/19 22:17 Patient medically screened. [facility] 22:28 Data reviewed: vital signs, nurses notes, lab test result(s). [facility] 01/21 02:16 Physician consultation: [facility] was contacted at 02:16, regarding regarding pm1 transfer, patient's condition, and will see patient. 01/19 22:22 Order name: Acetaminophen [facility] 01/19 22:22 Order name: Basic Metabolic Panel [facility] 01/19 22:22 Order name: CBC with Diff; Complete Time: 23:48 [facility] 01/19 22:22 Order name: ETOH Level; Complete Time: 23:48 [facility] 01/19 22:22 Order name: Hepatic Function; Complete Time: 23:48 [facility] 01/19 22:22 Order name: PT-INR; Complete Time: 23:48 [facility] 01/19 22:22 Order name: Ptt, Activated; Complete Time: 23:48 [facility] 01/19 22:22 Order name: Salicylate; Complete Time: 23:48 [facility] 01/19 22:22 Order name: Urine Drug Screen; Complete Time: 23:48 [facility] 01/19 22:22 Order name: EKG; Complete Time: 22:25 [facility] 01/19 22:22 Order name: Diet Regular; Complete Time: 22:26 [facility] 01/19 22:25 Order name: Acetaminophen Level; Complete Time: 23:48 [facility] 01/19 22:25 Order name: Basic Metabolic Panel; Complete Time: 23:48 [facility] 01/19 23:10 Order name: Urine Dipstick--Ancillary (enter results); Complete Time: 00:16 ar 01/19 22:22 Order name: EKG - Nurse/Tech; Complete Time: 22:38 [facility] 01/19 22:22 Order name: IV Saline Lock; Complete Time: 22:38 [facility] 01/19 22:22 Order name: Labs collected and sent; Complete Time: 22:38 [facility] 01/19 22:22 Order name: Urine Dipstick-Ancillary (obtain specimen); Complete Time: 23:02 [facility] 01/20 14:20 Order name: Diet Regular; Complete Time: 14:21 [place] 01/20 18:50 Order name: Diet Regular; Complete Time: 18:50 sv 01/21 07:17 Order name: Diet Regular; Complete Time: 07:18 sv Administered Medications: No medications were administered Disposition: 09:48 Co-signature as Attending Physician, Raymon Avendano MD I agree with the assessment and [facility] plan of care. Disposition: 01/19/19 23:48 Transfer ordered to Psych Facility. Diagnosis are Schizophrenia, Bipolar disorder, Abuse of non-psychoactive substances, Adverse effect of amphetamines. - Reason for transfer: Higher level of care. - Accepting physician is to psych. - Condition is Stable. - Problem is new. - Symptoms have improved. Signatures: [facility] Pilar Barraza RN RN sv Anderson, Corey, MD MD cha Chretien, Felicia, RN RN fc Marinas, Patrick TAN ROOM SUPERVISOR TAN ROOM SUPERVISOR pm1 Corrections: (The following items were deleted from the chart) 09:31 01/19 23:48 01/19/2019 23:48 Transfer ordered to Psych Facility. Diagnosis is sv Schizophrenia; Bipolar disorder; Abuse of non-psychoactive substances; Adverse effect of amphetamines. Reason for transfer: Higher level of care. Accepting physician is to psych. Condition is Stable. Problem is new. Symptoms have improved. greyson
[2019-01-20 00:06] LABS: Urine Blood NEGATIVE (NEG); Urine Glucose NEGATIVE (NEG); Urine Protein NEGATIVE (NEG); Urine Specific Gravity 1.025 (1.005-1.030)
--- NOTE | 2019-01-20 06:41 | EKG ---
Test Date: 2019-01-19 Test Time: 22:32:51 [employer] Mushroom: KATERINA MEASUREMENT RESULTS: Intervals: Rate: 85 TX: 136 QRSD: 98 QT: 354 QTc: 421 [place]: P: 75 TX: 136 QRS: 85 T: 38 INTERPRETIVE STATEMENTS: Normal sinus rhythm Incomplete right bundle branch block Borderline ECG Compared to ECG 01/19/2019 05:24:39 Incomplete right bundle-branch block now present Sinus tachycardia no longer present Electronically Signed On 01-20-19 06:41:27 CDT by Ángel Maki
[2019-01-21 09:48] VITALS: BP 110/72; TEMP 97.6; O2SAT 100
== END 2019-01-21 09:31 ==
LOC: ER 22:04
DX: F20.9 Schizophrenia, unspecified (principal); F31.9 Bipolar disorder, unspecified; F55.8 Abuse of other non-psychoactive substances; T43.625A Adverse effect of amphetamines, initial encounter; F17.210 Nicotine dependence, cigarettes, uncomplicated; Z88.8 Allergy status to other drugs, medicaments and biological substances
CPT/HCPCS: 36415; 80048; 80076; 80307; 80320; 80329; 81003; 85025; 85610; 85730; 93005; 99285

== ENCOUNTER 2019-11-24 01:45 | Inpatient (IN) | payer SELFPAY ==
[2019-11-24] MEDS ORDERED: LORazepam 2 MG/ML VIAL ONE ×2 (02:44→03:45)
[2019-11-24] MEDS ORDERED: NA CHLORIDE 0.9% 1,000 ML ONE ×2 (02:44→03:46)
[2019-11-24 02:55] LABS: Absolute Lymphocytes (CBC) 2.3 K/uL (0.7-4.9); Basophils % 0.9 % (0-1.3); Hematocrit 43.6 % (39.6-49.0); Lymphocytes % 18.3 % (15.3-44.8); MPV 9.2 fL (7.6-11.3); RBC Red Blood Cell Count 5.01 M/uL (4.33-5.43)
[2019-11-24 03:37] LABS: ALT/SGPT 55 U/L (12-78); AST/SGOT 227 U/L (15-37); Albumin 4.8 g/dL (3.4-5.0); Alkaline Phosphatase 102 U/L (45-117); BUN Blood Urea Nitrogen 37 mg/dL (7-18); Bicarbonate 21 mmol/L (21-32); Bilirubin Direct 0.3 mg/dL (0-0.2); Glucose Level 109 mg/dL (74-106); Potassium 4.1 mmol/L (3.5-5.1); Protein, Total 8.3 g/dL (6.4-8.2); Sodium Level 133 mmol/L (136-145)
[2019-11-24 03:39] LABS: Creatine Phosphokinase 11290 U/L (39-308)
[2019-11-24] MEDS ORDERED: DIPHENHYDRAMINE 50 MG/ML VIAL ONE (03:58)
[2019-11-24 04:06] LABS: Urine Blood NEGATIVE (NEG); Urine Glucose NEGATIVE (NEG); Urine Protein NEGATIVE (NEG); Urine Specific Gravity >1.030 (1.005-1.030); Urine pH 5.5 (5.0-7.0)
[2019-11-24 04:30] LABS: Barbiturates NEGATIVE (NEGATIVE); Benzodiazepines NEGATIVE (NEGATIVE); Cocaine NEGATIVE (NEGATIVE); METHAMPHETAM POSITIVE (NEGATIVE); Methadone NEGATIVE (NEGATIVE); Opiates NEGATIVE (NEGATIVE); Phencyclidine NEGATIVE (NEGATIVE); THC Cannibis NEGATIVE (NEGATIVE)
--- NOTE | 2019-11-24 04:30 | P.HP ---
Certification for Inpatient Patient admitted to: Inpatient With expected LOS: >2 Midnights Practitioner: I am a practitioner with admitting privileges, knowledge of patient current condition, hospital course, and medical plan of care. Services: Services provided to patient in accordance with Admission requirements found in Title 42 Section 412.3 of the Code of Federal Regulations Patient History Date of Service: 11/24/19 Reason for admission: Rhabdomyolysis History of Present Illness: 28-year-old gentleman with a history of drug abuse and homeless present to the emergency department with a complaint of neck pain and generalized weakness. Patient admitted to using amphetamine. Blood work in the ED was positive for severely elevated CK levels suggesting rhabdomyolysis. Patient was confused during my examination. He had earlier been given Benadryl for restlessness. Patient is admitted for further management. Allergies aripiprazole [From Abilify] Allergy (Verified 01/17/19 01:23) Anaphylaxis promethazine Allergy (Verified 01/17/19 01:23) Anaphylaxis Home Medications: NK [No Home Meds] 01/17/19 - Past Medical/Surgical History Diabetic: No -: Amphetamine abuse -: THC abuse -: Tobacco abuse -: Alcohol abuse Psychosocial/ Personal History: he is homeless. - Social History Smoking Status: Current every day smoker Alcohol use: Yes CD- Drugs: Yes Caffeine use: Yes Physical Examination - Physical Exam General: In no apparent distress, Confused, Other (Drowsy) HEENT: Mucous membr. moist/pink, EOMI, Sclerae nonicteric Neck: Supple, JVD not distended Respiratory: Clear to auscultation bilaterally, Normal air movement Cardiovascular: No edema, Normal S1 S2, Other (Tachycardic) Gastrointestinal: Normal bowel sounds, Soft and benign, No tenderness Musculoskeletal: No swelling, No erythema Integumentary: No rashes Neurological: Normal strength at 5/5 x4 extr, Cranial nerves 3-12 intact - Studies Laboratory Data (last 24 hrs) 11/24/19 02:43: Sodium 133 L, Potassium 4.1, BUN 37 H, Creatinine 1.29, Glucose 109 H, Total Bilirubin 1.0, AST 227 H, ALT 55, Alkaline Phosphatase 102 11/24/19 02:43: WBC 12.6 H, Hgb 15.0, Hct 43.6, Plt Count 242 Assessment and Plan - Problems (Diagnosis) (1) Rhabdomyolysis Current Visit: No Status: Acute Qualifiers: Rhabdomyolysis type: non-traumatic Qualified Code(s): M62.82 - Rhabdomyolysis (2) Drug abuse Current Visit: No Status: Acute - Plan Admit to the medical floor Telemetry Aggressive IV hydration with normal saline. Ativan IV p.r.n. for restlessness and agitation Daily CK levels Elevated AST likely related to elevated CK. Follow toxicology screen. Monitor renal function. - Advance Directives Does patient have a Living Will: No Does patient have a Durable POA for Healthcare: No
[2019-11-24] MEDS ORDERED: ONDANSETRON 4 MG/2 ML VIAL IV PRN (05:23)
[2019-11-24] MEDS ORDERED: ACETAMINOPHEN 500 MG TAB PO PRN (05:23)
[2019-11-24] MEDS ORDERED: LORazepam 2 MG/ML VIAL IV PRN (05:23)
[2019-11-24 05:52] VITALS: BMI 21.2
[2019-11-24] MEDS: NA CHLORIDE 0.9% 1,000 ML IV SCH ×3 (06:14→18:10)
[2019-11-24] MEDS: ENOXAPARIN 40 MG/0.4 ML SQ SCH (12:17)
--- NOTE | 2019-11-24 16:16 | RAD REPORT ---
EXAM DESCRIPTION: CT - [id number] - 11/24/2019 5:09 am CLINICAL HISTORY: PAIN COMPARISON: None. TECHNIQUE: Axial [address] imaging of the brain. Axial [address] imaging of the cervical spine. Reformatted coronal and sagittal images obtai daljit. This examination was performed according to our departmental dose optimization program, which include s automated exposure control, adjustment of the mA and/or kV according to patient size and/or use of iterative reconstruction technique. FINDINGS: CT Head: The ventricle size and contour is within normal limits. Extra-axial fluid spaces appear normal. Urias- white matter differentiation is preserved. There is no edema, hemorrhage, mass, or midline shift. No appearance of the cerebellum and vermis. Normal sella contents. Intraorbital contents appear normal. Clear paranasal sinuses and mastoid air cells. Imaged facial bones, skull base, and calvarium appear normal. Unremarkable scalp soft tissues. CT cervical spine: There is straightening of cervical lordosis. Vertebral body height is within normal limits. There is no compression fracture. No subluxation. There is mild degenerative hypertrophic change along the end plates at C6-7. Intact posterior elements. Intact odontoid process and lateral masses. Parapharyngeal soft tissues and mucosal spaces appear normal. Normal epiglottis. No prevertebral negra a. Unremarkable thyroid. The included lung apices are clear. IMPRESSION: 1. No intracranial acute finding. 2. Cervical spine muscle spasm. Minimal degenerative C6-7 changes. No acute cervical spine abnormalit y. Electronically signed by: Maribel Estrella DO 11/24/2019 3:24 AM CDT Due to temporary technical issues with the PACS/Fluency reporting system, reports are being signed by the in house radiologist without review asa courtesy to ensure prompt reporting. The interpreting ra diologist is fully responsible for the content of the report.
[2019-11-25] MEDS: NA CHLORIDE 0.9% 1,000 ML IV SCH ×4 (00:27→22:52)
[2019-11-25 05:57] LABS: Absolute Lymphocytes (CBC) 2.1 K/uL (0.7-4.9); Basophils % 0.8 % (0-1.3); Hematocrit 34.9 % (39.6-49.0); Lymphocytes % 37.3 % (15.3-44.8); MPV 9.5 fL (7.6-11.3); RBC Red Blood Cell Count 3.94 M/uL (4.33-5.43)
[2019-11-25 06:33] LABS: BUN Blood Urea Nitrogen 12 mg/dL (7-18); Bicarbonate 25 mmol/L (21-32); Glucose Level 81 mg/dL (74-106); Magnesium 2.1 mg/dL (1.8-2.4); Phosphorus 2.7 mg/dL (2.5-4.9); Sodium Level 141 mmol/L (136-145)
[2019-11-25 06:55] LABS: Creatine Phosphokinase 5454 U/L (39-308)
--- NOTE | 2019-11-25 07:37 | P.PN ---
Subjective Date of Service: 11/25/19 Chief Complaint: Rhabdomyolysis Patient complaining of neck pain. Physical Examination - Vital Signs Temperature: 97.9 F Blood Pressure: 103/63 Pulse: 61 Respirations: 16 Pulse Ox (%): 97 - Physical Exam General: Alert, In no apparent distress, Oriented x3 HEENT: Mucous membr. moist/pink, Sclerae nonicteric Neck: Supple, JVD not distended Respiratory: Clear to auscultation bilaterally, Normal air movement Cardiovascular: No edema, Normal pulses, Regular rate/rhythm, Normal S1 S2 Gastrointestinal: Normal bowel sounds, Soft and benign, Non-distended, No tenderness Musculoskeletal: No swelling, No erythema Integumentary: No rashes Neurological: Normal speech, Normal strength at 5/5 x4 extr Assessment And Plan - Current Problems (Diagnosis) (1) Rhabdomyolysis Current Visit: No Status: Acute Qualifiers: Rhabdomyolysis type: non-traumatic Qualified Code(s): M62.82 - Rhabdomyolysis (2) Drug abuse Current Visit: No Status: Acute (3) Acute renal failure Current Visit: Yes Status: Acute (4) Amphetamine abuse Current Visit: Yes Status: Acute - Plan Serum CK level is trending down Continue Aggressive IV hydration with normal saline. Ativan IV p.r.n. for restlessness and agitation Daily CK levels Toxicology screen positive for amphetamine Acute renal failure resolved. Homeless.
[2019-11-25] MEDS: ENOXAPARIN 40 MG/0.4 ML SQ SCH (08:15)
--- NOTE | 2019-11-25 13:00 | EKG ---
Test Date: 2019-11-24 Test Time: 01:57:05 Real Estate Assistant: KELLI MEASUREMENT RESULTS: Intervals: Rate: 118 NH: 154 QRSD: 94 QT: 332 QTc: 465 [place]: P: 82 NH: 154 QRS: 101 T: 58 INTERPRETIVE STATEMENTS: Sinus tachycardia Right atrial enlargement Rightward axis Incomplete right bundle branch block Abnormal ECG Electronically Signed On 11-25-19 12:59:43 CDT by Ángel Maki
[2019-11-25 14:52] LABS: Urine Appearance CLEAR; Urine Bilirubin NEGATIVE (NEG); Urine Blood NEGATIVE (NEG); Urine Color YELLOW; Urine Glucose NEGATIVE (NEG); Urine Protein NEGATIVE (NEG); Urine Urobilinogen 0.2 mg/dL (0.2-1.0)
[2019-11-25 15:02] LABS: Urine Microscopic Reflex NO UMIC
[2019-11-26] MEDS: NA CHLORIDE 0.9% 1,000 ML IV SCH ×4 (05:17→23:59)
--- NOTE | 2019-11-26 07:49 | P.PN ---
Subjective Date of Service: 11/26/19 Chief Complaint: Rhabdomyolysis Patient currently has no complain. Serum CK level down to 2900. Physical Examination - Vital Signs Temperature: 97.4 F Blood Pressure: 101/74 Pulse: 67 Respirations: 17 Pulse Ox (%): 98 - Physical Exam General: Alert, In no apparent distress HEENT: Mucous membr. moist/pink Neck: Supple Respiratory: Clear to auscultation bilaterally, Normal air movement Cardiovascular: No edema, Regular rate/rhythm, Normal S1 S2 Gastrointestinal: Normal bowel sounds, Soft and benign, No tenderness Musculoskeletal: No swelling, No erythema Integumentary: No rashes Neurological: Normal strength at 5/5 x4 extr Assessment And Plan - Current Problems (Diagnosis) (1) Rhabdomyolysis Current Visit: No Status: Acute Qualifiers: Rhabdomyolysis type: non-traumatic Qualified Code(s): M62.82 - Rhabdomyolysis (2) Drug abuse Current Visit: No Status: Acute (3) Acute renal failure Current Visit: Yes Status: Acute (4) Amphetamine abuse Current Visit: Yes Status: Acute - Plan Acute renal failure resolved Serum CK level is trending down Continue IV hydration. Discontinue Ativan Daily CK levels Toxicology screen positive for amphetamine Homeless.
[2019-11-26] MEDS: ENOXAPARIN 40 MG/0.4 ML SQ SCH (08:00)
[2019-11-27 01:43] VITALS: O2SAT 99
[2019-11-27] MEDS: NA CHLORIDE 0.9% 1,000 ML IV SCH (06:12)
--- NOTE | 2019-11-27 07:34 | P.PN ---
Subjective Date of Service: 11/27/19 Chief Complaint: Rhabdomyolysis Patient currently has no complain. Serum CK level down to 1500 Physical Examination - Vital Signs Temperature: 97.6 F Blood Pressure: 110/65 Pulse: 60 Respirations: 17 Pulse Ox (%): 99 - Physical Exam General: Alert, In no apparent distress HEENT: Mucous membr. moist/pink Respiratory: Clear to auscultation bilaterally, Normal air movement Cardiovascular: No edema, Regular rate/rhythm, Normal S1 S2 Gastrointestinal: Normal bowel sounds, Soft and benign, No tenderness Musculoskeletal: No swelling, No erythema Integumentary: No rashes Assessment And Plan - Current Problems (Diagnosis) (1) Rhabdomyolysis Current Visit: No Status: Acute Qualifiers: Rhabdomyolysis type: non-traumatic Qualified Code(s): M62.82 - Rhabdomyolysis (2) Drug abuse Current Visit: No Status: Acute (3) Acute renal failure Current Visit: Yes Status: Acute (4) Amphetamine abuse Current Visit: Yes Status: Acute - Plan Serum CK level is trending down Continue IV hydration. Daily CK levels. Discharge once CK level is less than 1000. Toxicology screen positive for amphetamine Homeless.
[2019-11-27] MEDS: ENOXAPARIN 40 MG/0.4 ML SQ SCH (08:14)
[2019-11-27 09:33] VITALS: BP 112/69; TEMP 97.9
--- NOTE | 2019-11-27 10:17 | P.DS ---
Admission Date: 11/24/19 Discharge Date: 11/27/19 Disposition: AMA-LEFT AGAINST MEDICAL ADVIC Discharge Condition: FAIR Reason for Admission: Rhabdomyolysis - Problems (1) Rhabdomyolysis Status: Acute Qualifiers: Rhabdomyolysis type: non-traumatic Qualified Code(s): M62.82 - Rhabdomyolysis (2) Drug abuse Status: Acute (3) Acute renal failure Status: Acute (4) Amphetamine abuse Status: Acute Brief History of Present Illness: 28-year-old gentleman with a history of drug abuse and homeless present to the emergency department with a complaint of neck pain and generalized weakness. Patient admitted to using amphetamine. Blood work in the ED was positive for severely elevated CK levels suggesting rhabdomyolysis. Patient was confused during my examination. He had earlier been given Benadryl for restlessness. Patient was admitted for further management. Hospital Course: Patient admitted to the medical floor and treated supportively with IV hydration. He needed Ativan p.r.n. briefly for agitation. His serum CK level trended down with IV hydration to 1531. Renal function was stable. Patient signed out against medical advice today. Vital Signs/Physical Exam: Temp Pulse Resp BP Pulse Ox 97.9 F 67 15 112/69 98 11/27/19 08:00 11/27/19 08:00 11/27/19 08:00 11/27/19 08:00 11/27/19 08:00 Laboratory Data at Discharge: WBC 5.6 K/uL (4.3-10.9) D 11/25/19 05:26 Hgb 12.1 g/dL (13.6-17.9) L D 11/25/19 05:26 Hct 34.9 % (39.6-49.0) L D 11/25/19 05:26 Plt Count 168 K/uL (152-406) D 11/25/19 05:26 Sodium 141 mmol/L (136-145) 11/25/19 05:26 Potassium 4.0 mmol/L (3.5-5.1) 11/25/19 05:26 BUN 12 mg/dL (7-18) D 11/25/19 05:26 Creatinine 0.71 mg/dL (0.55-1.3) 11/25/19 05:26 Glucose 81 mg/dL (74-106) 11/25/19 05:26 Phosphorus 2.7 mg/dL (2.5-4.9) 11/25/19 05:26 Magnesium 2.1 mg/dL (1.8-2.4) 11/25/19 05:26 Total Bilirubin 1.0 mg/dL (0.2-1.0) 11/24/19 02:43 AST 227 U/L (15-37) H 11/24/19 02:43 ALT 55 U/L (12-78) 11/24/19 02:43 Alkaline Phosphatase 102 U/L (45-117) 11/24/19 02:43 Home Medications: NK [No Home Meds] 01/17/19
--- NOTE | 2019-11-27 16:42 | ER ---
Nurse's Notes [facility] Name: Carlos Walker Age: 28 yrs Sex: Male : 1990 Arrival Date: 11/24/2019 Time: 01:54 Bed 7 Private MD: Diagnosis: Rhabdomyolysis;Methanphetamine Abuse;Cervical Muscle Spasm Presentation: 11/23 01:54 Chief complaint: EMS states: "the pt is reporting neck pain that comes into his left jd3 shoulder and up into his head for 2 weeks now. he does not recall if he was hit, fell, or how it started hurting. the pt also reported taking meth about 3 hours ago causing some irregular and fast heart rate.". Coronavirus screen: Proceed with normal triage. Ebola Screen: Patient negative for fever greater than or equal to 101.5 degrees Fahrenheit, and additional compatible Ebola Virus Disease symptoms. Initial Sepsis Screen: Does the patient meet any 2 criteria? No. Patient's initial sepsis screen is negative. Does the patient have a suspected source of infection? No. Patient's initial sepsis screen is negative. Risk Assessment: Do you want to hurt yourself or someone else? Patient reports no desire to harm self or others. Onset of symptoms was November 24, 2019. 01:54 Method Of Arrival: EMS: [facility] jd3 01:54 Acuity: EDD 3 jd3 Historical: - Allergies: 01:57 Abilify; jd3 01:57 Promethazine; jd3 - PMHx: 01:57 manic bipolar disorder; Schizophrenia; jd3 - PSHx: 01:57 None; jd3 - Immunization history:: Adult Immunizations up to date. - Social history:: Smoking status: Patient reports the use of cigarette tobacco products, smokes one pack cigarettes per day. Patient uses street drugs, Methamphetamine (Meth). Screenin:01 Abuse screen: Denies threats or abuse. Nutritional screening: No deficits noted. jd3 Tuberculosis screening: No symptoms or risk factors identified. Fall Risk Ambulatory Aid- None/Bed Rest/Nurse Assist (0 pts). Gait- Normal/Bed Rest/Wheelchair (0 pts) Mental Status- Oriented to own ability (0 pts). Total Mares Fall Scale indicates No Risk (0-24 pts). Assessment: 01:59 General: Appears in no apparent distress. uncomfortable, Behavior is calm, cooperative, jd3 appropriate for age. Pain: Complains of pain in head, left shoulder, and neck Quality of pain is described as aching, radiating, sharp. Neuro: Level of Consciousness is awake, alert, obeys commands, Oriented to person, situation. Cardiovascular: Denies chest pain, Heart tones S1 S2 present Capillary refill < 3 seconds Patient's skin is warm and dry. Rhythm is sinus tachycardia. Respiratory: Airway is patent Respiratory effort is even, unlabored, Respiratory pattern is regular, symmetrical, Breath sounds are clear bilaterally. Denies cough, shortness of breath. GI: No signs and/or symptoms were reported involving the gastrointestinal system. Abdomen is flat, non-distended, Patient currently denies abdominal pain, constipation, diarrhea, nausea, vomiting. : No signs and/or symptoms were reported regarding the genitourinary system. EENT: No signs and/or symptoms were reported regarding the EENT system. Derm: Skin is intact, Skin is dry, Skin is normal, Skin temperature is warm. Musculoskeletal: Circulation, motion, and sensation intact. Range of motion: intact in all extremities. 03:17 Reassessment: No changes from previously documented assessment. Patient and/or family jd3 updated on plan of care and expected duration. Pain level reassessed. pt asked to provide urine sample, reported to not be able to urinate at this time. pt reporting seeing people standing in the door. pt reoriented and reassured. 03:39 Reassessment: CPK [id number] candy from laboratory called. ED provider aware. rr5 03:47 Reassessment: No changes from previously documented assessment. Patient and/or family jd3 updated on plan of care and expected duration. Pain level reassessed. 04:05 Reassessment: hospitalist at bedside. jd3 04:18 Reassessment: Patient and/or family updated on plan of care and expected duration. Pain jd3 level reassessed. pt reoriented and reassured. pt resting comfortably in bed. pt denies pain at this time. Neuro: Level of Consciousness is awake, alert, obeys commands, Oriented to person, situation. Cardiovascular: Denies chest pain. Respiratory: Airway is patent Respiratory effort is even, unlabored, Respiratory pattern is regular, symmetrical. Vital Signs: 01:57 BP 129 / 92; Pulse 125; Resp 20 S; Temp 99.6(O); Pulse Ox 97% on R/A; Weight 68.95 kg jd3 (R); Height 5 ft. 11 in. (180.34 cm) (R); Pain 10/10; 03:17 BP 155 / 91; Pulse 130; Resp 20 S; Pulse Ox 97% on R/A; jd3 03:49 BP 137 / 78; Pulse 126; Resp 22 S; Pulse Ox 100% on R/A; jd3 04:17 BP 113 / 81; Pulse 118; Resp 22 S; Pulse Ox 97% on R/A; jd3 01:57 Body Mass Index 21.20 (68.95 kg, 180.34 cm) jd3 ED Course: 01:54 Patient arrived in ED. jd3 01:57 Triage completed. jd3 01:59 Arm band placed on. EKG completed in triage. Results shown to MD. jd3 02:02 Sunil Boyd RN is Primary Nurse. jd3 02:02 Patient has correct armband on for positive identification. Bed in low position. Call j light in reach. Side rails up X 1. Adult w/ patient. quality assurance monitor final on. Pulse ox on. NIBP on. 02:09 Bryan Hernandez MD is Attending Physician. mh7 02:47 Inserted saline lock: 20 gauge forearm, using aseptic technique. tt3 03:09 CT Head C Spine In Process Unspecified. EDMS 03:51 Johnathan Angelo is Hospitalizing Provider. mh7 04:57 No provider procedures requiring assistance completed. Patient admitted, IV remains in lp1 place. Administered Medications: 02:44 Drug: NS 0.9% 1000 ml Route: IV; Rate: 1000 ml; Site: right forearm; jd3 03:40 Follow up: Response: No adverse reaction; IV Status: Completed infusion; IV Intake: jd3 1000ml 02:44 Drug: Ativan 1 mg Route: IVP; Site: right forearm; jd3 03:40 Follow up: Response: No adverse reaction jd3 03:46 Drug: Ativan 1 mg Route: IVP; Site: right forearm; jd3 04:35 Follow up: Response: No adverse reaction jd3 03:46 Drug: NS 0.9% 1000 ml Route: IV; Rate: 1 bolus; Site: right forearm; jd3 04:40 Follow up: Response: No adverse reaction; IV Status: Completed infusion; IV Intake: jd3 1000ml 04:05 Drug: Benadryl 50 mg Route: IVP; Site: right forearm; jd3 05:00 Follow up: Response: No adverse reaction jd3 Intake: 03:40 IV: 1000ml; Total: 1000ml. jd3 04:40 IV: 1000ml; Total: 2000ml. jd3 Outcome: 03:52 Decision to Hospitalize by Provider. [facility] 04:58 Admitted to Med/surg via wheelchair, room 216, with chart, Report called to YOHANNES Rhodes lp1 04:58 Condition: stable 04:58 Instructed on the need for admit. 05:24 Patient left the ED. jd3 Signatures: Dispatcher [employer] EDMS Yaa Montanez RN RN lp1 Sunil Boyd RN RN jd3 Esteban Sarkar RN RN rr5 Bryan Hernandez MD MD 7 [place] tt3 Corrections: (The following items were deleted from the chart) 03:17 01:57 BP 129 / 92; Pulse 120bpm; Resp 20bpm; Spontaneous; Pulse Ox 97% RA; Temp 99.6F jd3 Oral; 68.95 kg Reported; Height 5 ft. 11 in. Reported; BMI: 21.2; Pain 10/10; jd3 03:30 03:17 Reassessment: No changes from previously documented assessment. Patient and/or jd3 family updated on plan of care and expected duration. Pain level reassessed. Patient is alert, oriented x 3, equal unlabored respirations, skin warm/dry/pink. jd3 03:48 01:59 Neuro: Level of Consciousness is awake, alert, obeys commands, Oriented to jd3 person, place, time, situation, jd3 03:48 03:17 Reassessment: No changes from previously documented assessment. Patient and/or jd3 family updated on plan of care and expected duration. Pain level reassessed. Patient is alert, oriented x 3, equal unlabored respirations, skin warm/dry/pink. pt asked to provide urine sample, reported to not be able to urinate at this time. jd3 04:19 01:59 Cardiovascular: Denies chest pain, Capillary refill < 3 seconds Patient's skin is jd3 warm and dry. Rhythm is sinus tachycardia jd3 : 01:59 Respiratory: Airway is patent Respiratory effort is even, unlabored, Respiratory jd3 pattern is regular, symmetrical, Denies cough, shortness of breath jd3 : 01:59 Neuro: Level of Consciousness is awake, alert, obeys commands, Oriented to jd3 person, place, situation, jd3 03:17 Reassessment: No changes from previously documented assessment. Patient and/or jd3 family updated on plan of care and expected duration. Pain level reassessed. Patient is alert, oriented x 3, equal unlabored respirations, skin warm/dry/pink. pt asked to provide urine sample, reported to not be able to urinate at this time. pt reporting seeing people standing in the door. pt reoriented and reassured. jd3 03:47 Reassessment: No changes from previously documented assessment. Patient and/or jd3 family updated on plan of care and expected duration. Pain level reassessed. Patient is alert, oriented x 3, equal unlabored respirations, skin warm/dry/pink. jd3 04:35 04:34 Response: No adverse reaction; IV Status: Completed infusion; IV Intake: 1000ml jd3 jd3
--- NOTE | 2019-11-27 16:42 | EDPHYS ---
Physician Documentation [facility] Name: Carlos Walker Age: 28 yrs Sex: Male : 1990 Arrival Date: 11/24/2019 Time: 01:54 Bed 7 Private MD: ED Physician Bryan Hernandez HPI: 11/23 02:41 This 28 yrs old Male presents to ER via EMS with complaints of Neck pain. mh7 02:41 The patient or guardian complains of pain, that is acute. The symptoms are located at mh7 the posterior neck. Onset: The symptoms/episode began/occurred 2 week(s) ago. Context: The problem was sustained at an unknown location, The neck injury/problem resulted from from unknown cause. Associated signs and symptoms: Pertinent positives: headache, Pertinent negatives: chills, constipation, fever, bladder incontinence, bowel incontinence, nausea, numbness, tingling, vomiting, weakness, No neurological symptoms were experienced by the patient prior to arrival in the emergency department. The pain does not radiate. Modifying factors: The symptoms are alleviated by nothing. the symptoms are aggravated by movement. Patient states that he has had posterior neck pain for the past 2 weeks that sometimes radiates to his head. He denies any injuries, fever, nausea, vomiting, numbness/tingling, or weakness. He has not taken pain medication but smoked methamphetamine tonight and drank a beer. He denies any suicidal or homicidal ideation.. Historical: - Allergies: 01:57 Abilify; jd3 01:57 Promethazine; jd3 - PMHx: 01:57 manic bipolar disorder; Schizophrenia; jd3 - PSHx: 01:57 None; jd3 - Immunization history:: Adult Immunizations up to date. - Social history:: Smoking status: Patient reports the use of cigarette tobacco products, smokes one pack cigarettes per day. Patient uses street drugs, Methamphetamine (Meth). ROS: 02:41 Constitutional: Negative for fever, chills, and weight loss, Eyes: Negative for injury, mh7 pain, redness, and discharge, ENT: Negative for injury, pain, and discharge, Cardiovascular: Negative for chest pain, palpitations, and edema, Respiratory: Negative for shortness of breath, cough, wheezing, and pleuritic chest pain, Abdomen/GI: Negative for abdominal pain, nausea, vomiting, diarrhea, and constipation, Back: Negative for injury and pain, : Negative for injury, bleeding, discharge, and swelling, MS/Extremity: Negative for injury and deformity, Skin: Negative for injury, rash, and discoloration, Psych: Negative for depression, anxiety, suicide ideation, homicidal ideation, and hallucinations, Allergy/Immunology: Negative for hives, rash, and allergies, Endocrine: Negative for neck swelling, polydipsia, polyuria, polyphagia, and marked weight changes, Hematologic/Lymphatic: Negative for swollen nodes, abnormal bleeding, and unusual bruising. Exam: 02:41 Constitutional: This is a well developed, well nourished patient who is awake, alert, mh7 and in no acute distress. Head/Face: Normocephalic, atraumatic. Eyes: Pupils equal round and reactive to light, extra-ocular motions intact. Lids and lashes normal. Conjunctiva and sclera are non-icteric and not injected. Cornea within normal limits. Periorbital areas with no swelling, redness, or edema. ENT: Nares patent. No nasal discharge, no septal abnormalities noted. Tympanic membranes are normal and external auditory canals are clear. Oropharynx with no redness, swelling, or masses, exudates, or evidence of obstruction, uvula midline. Mucous membranes moist. 02:41 Chest/axilla: Normal chest wall appearance and motion. Nontender with no deformity. No lesions are appreciated. 02:41 Respiratory: Lungs have equal breath sounds bilaterally, clear to auscultation and percussion. No rales, rhonchi or wheezes noted. No increased work of breathing, no retractions or nasal flaring. Abdomen/GI: Soft, non-tender, with normal bowel sounds. No distension or tympany. No guarding or rebound. No evidence of tenderness throughout. Back: No spinal tenderness. No costovertebral tenderness. Full range of motion. Skin: Warm, dry with normal turgor. Normal color with no rashes, no lesions, and no evidence of cellulitis. MS/ Extremity: Pulses equal, no cyanosis. Neurovascular intact. Full, normal range of motion. Neuro: Awake and alert, GCS 15, oriented to person, place, time, and situation. Cranial nerves II-XII grossly intact. Motor strength 5/5 in all extremities. Sensory grossly intact. Cerebellar exam normal. Normal gait. Psych: Awake, alert, with orientation to person, place and time. Behavior, mood, and affect are within normal limits. 02:41 Neck: External neck: is normal, C-spine: vertebral tenderness, that is mild, appreciated at cervical spine, Thyroid: appears normal, Trachea: is midline with no obvious abnormalities, ROM/movement: pain, limited range of motion, that is mild, Meningeal signs: are not present, nuchal rigidity, is not appreciated, Lymph nodes: no appreciated lymphadenopathy. 02:41 Cardiovascular: Rate: tachycardic, Rhythm: regular, Pulses: no pulse deficits are appreciated, Heart sounds: normal, normal S1and S2, Edema: is not appreciated, JVD: is not appreciated. 03:54 ECG was reviewed by the Attending Physician. [facility] Vital Signs: 01:57 BP 129 / 92; Pulse 125; Resp 20 S; Temp 99.6(O); Pulse Ox 97% on R/A; Weight 68.95 kg jd3 (R); Height 5 ft. 11 in. (180.34 cm) (R); Pain 10/10; 03:17 BP 155 / 91; Pulse 130; Resp 20 S; Pulse Ox 97% on R/A; jd3 03:49 BP 137 / 78; Pulse 126; Resp 22 S; Pulse Ox 100% on R/A; jd3 04:17 BP 113 / 81; Pulse 118; Resp 22 S; Pulse Ox 97% on R/A; jd3 01:57 Body Mass Index 21.20 (68.95 kg, 180.34 cm) jd3 MDM: 02:33 Patient medically screened. [facility] 03:47 Differential diagnosis: C-Spine Fracture Cervical Disc Herniation Cervical Discogenic [facility] Pain Cervical Raiculopathy cervical strain, torticollis, substance abuse, rhabdomyolysis. Data reviewed: vital signs, nurses notes, EMS record, old medical records, lab test result(s), CBC, electrolytes. Data interpreted: taxicab starter: rate is 120 beats/min, rhythm is sinus tachycardia, Interpretation: tachycardia, Pulse oximetry: on room air is 100 %. Interpretation: normal. Counseling: I had a detailed discussion with the patient and/or guardian regarding: the historical points, exam findings, and any diagnostic results supporting the discharge/admit diagnosis, lab results, radiology results, the need for further work-up and treatment in the hospital. 11/23 02:32 Order name: CBC with Diff; Complete Time: 03:13 [facility] 11/23 02:32 Order name: Basic Metabolic Panel; Complete Time: 03:42 [facility] 11/23 02:32 Order name: LFT's; Complete Time: 03:42 [facility] 11/23 02:32 Order name: Alcohol Level; Complete Time: 03:32 [facility] 11/23 02:32 Order name: UDS [facility] 11/23 02:32 Order name: Salicylate; Complete Time: 03:13 [facility] 11/23 02:32 Order name: Tylenol Level; Complete Time: 03:42 [facility] 11/23 02:32 Order name: CT Head C Spine [facility] 11/23 02:32 Order name: CPK; Complete Time: 03:42 [facility] 11/23 04:04 Order name: Urine Dipstick--Ancillary (enter results) wi 11/23 02:03 Order name: EKG; Complete Time: 02:03 [facility] 11/23 02:03 Order name: EKG - Nurse/Tech; Complete Time: 02:03 [facility] 11/23 02:32 Order name: Saline Lock; Complete Time: 02:44 [facility] EC:54 Rate is 118 beats/min. Rhythm is regular. QRS [place] is Normal. SD interval is normal. [facility] Clinical impression: Sinus tachycardia. Administered Medications: 02:44 Drug: NS 0.9% 1000 ml Route: IV; Rate: 1000 ml; Site: right forearm; jd3 03:40 Follow up: Response: No adverse reaction; IV Status: Completed infusion; IV Intake: jd3 1000ml 02:44 Drug: Ativan 1 mg Route: IVP; Site: right forearm; jd3 03:40 Follow up: Response: No adverse reaction jd3 03:46 Drug: Ativan 1 mg Route: IVP; Site: right forearm; jd3 04:35 Follow up: Response: No adverse reaction jd3 03:46 Drug: NS 0.9% 1000 ml Route: IV; Rate: 1 bolus; Site: right forearm; jd3 04:40 Follow up: Response: No adverse reaction; IV Status: Completed infusion; IV Intake: jd3 1000ml 04:05 Drug: Benadryl 50 mg Route: IVP; Site: right forearm; jd3 05:00 Follow up: Response: No adverse reaction jd3 Disposition: 11/24/19 03:52 Hospitalization ordered by Johnathan Angelo for Inpatient Admission. Preliminary diagnosis are Rhabdomyolysis, Methanphetamine Abuse, Cervical Muscle Spasm. - Bed requested for Telemetry/MedSurg (Inpatient). - Status is Inpatient Admission. jd3 - Condition is Stable. - Problem is an acute exacerbation. - Symptoms have improved. Signatures: Dispatcher [employer] Stephani Biswas RN RN cg Davies, Jonathon, RN RN jd3 Holmes, Maurice, MD MD mh7 Corrections: (The following items were deleted from the chart) 04:39 03:52 Hospitalization Ordered by Johnathan Angelo for Inpatient Admission. Preliminary cg diagnosis is Rhabdomyolysis; Methanphetamine Abuse; Cervical Muscle Spasm. Bed requested for Telemetry/MedSurg (Inpatient). Status is Inpatient Admission. Condition is Stable. Problem is an acute exacerbation. Symptoms have improved. mh7 05:24 04:39 11/24/2019 03:52 Hospitalization Ordered by Johnathan Angelo for Inpatient jd3 Admission. Preliminary diagnosis is Rhabdomyolysis; Methanphetamine Abuse; Cervical Muscle Spasm. Bed requested for Telemetry/MedSurg (Inpatient). Status is Inpatient Admission. Condition is Stable. Problem is an acute exacerbation. Symptoms have improved. cg
== END 2019-11-27 09:48 | disposition left against medical advice (07) | DRG 558 ==
LOC: ER 01:45 → ERHOLD 04:35 → 2ND 04:58
PROVIDERS: ADMIT Internal Medicine; ATTEND Internal Medicine
DX: M62.82 Rhabdomyolysis (principal); N17.9 Acute kidney failure, unspecified; F17.210 Nicotine dependence, cigarettes, uncomplicated; F19.10 Other psychoactive substance abuse, uncomplicated; F15.10 Other stimulant abuse, uncomplicated; Z53.29 Procedure and treatment not carried out because of patient's decision for other reasons; Z88.8 Allergy status to other drugs, medicaments and biological substances; Z59.0 Homelessness
CPT/HCPCS: 36415; 70450; 72125; 80048; 80076; 80307; 80320; 80329; 81003; 82550; 83735; 84100; 85025; 93005; 96361; 96374; 96375; 99285; J1200; J1650; J7030

== ENCOUNTER 2019-12-29 21:36 | Emergency (ER) | payer SELFPAY ==
--- OUTSIDE RECORDS SUMMARY | 2019-12-29 21:42 | XMS REPORT | Continuity of Care Document ---
:1990 Author Organization [facility] t Address [address] [place] [address] Care Team Providers Name Role Phone Carmelo CHAVIS Attending Clinician Naida Alfaro MD Attending Clinician Chelsea ELDER, R Attending Clinician Mia CHAVIS, O Attending Clinician Joe CHAVIS, S Attending Clinician Cipriano CHAVIS Attending Clinician Problems This patient has no known problems. Allergies, Adverse Reactions, Alerts This patient has no known allergies or adverse reactions. Medications This patient has no known medications. Procedures This patient has no known procedures. Encounters Start End Encounter Admission Attending Care Care Encounter Source Date/Time Date/Time Type Type Clinicians Facility Department ID 2019-08-20 2019-08-22 Emergency Yasmin Rhodes TRAUMA [id number] 21:07:32 13:58:00 Lucien Alfaro [id number] 2019-08-17 2019-08-17 Emergency Chelsea, TRAUMA [id number] 19:59:42 20:28:00 Chichi TOLBERT [id number] 2019-08-13 2019-08-13 Emergency Morrical, TRAUMA [id number] 17:35:49 19:40:00 Lopez [facility] [id number] 2019-03-03 2019-03-03 Emergency [place] [id number] 02:40:06 03:52:00 Enedelia Snyder [id number] [place] [id number] [place] [id number] 2019-01-21 2019-01-21 [facility] [id number] 15:06:32 23:59:00 Encounter En LUIS ANTONIO [id number] MEDICAL [id number] [place] [id number] Results Test Description Test Time Test Comments Results Result Comments Source Valproic Acid Level 2019-01-31 08:10:30 Test Item Value Reference Range Interpretation Comme nts Valproic Acid Level (test code = Valproic Acid Level) 94.1 ug/mL(g) 50.0-100.0 Hemoglobin [id number] 09:40:02 Test Item Value Reference Range Interpretation Comments Hemoglobin A1c (test code 5.0 % 4.8-5.9 No n Diabetic = Hemoglobin A1c) 4.8-5.9%Di abetic <7.0% Valproic Acid [id number] 08:30:39 Test Item Value Reference Range Interpretation Comments Valproic Acid Level (test code 120.3 ug/mL(g) 50.0-100.0 H = Valproic Acid Level) RPR [id number] 06:07:29 Test Item Value Reference Range Interpretation Comments RPR Qual (test code = RPR Qual) Non-Reactive Non-Reactive Reactive Control (test code = Reactive Reactive Control) Weak Reactive Control (test Weak Reactive code = Weak Reactive Control) Non-Reactive Control (test code Non-Reactive = Non-Reactive Control) Lot # (test code = Lot #) [id number] Expiration Dt (test code = 04.27.2020 N Expiration Dt) Thyroid Stimulating [id number] 02:34:05 Test Item Value Reference Range Interpretation Comments TSH (test code = TSH) 1.290 mIU/mL 0.270-4.200 Lipid [id number] 02:16:21 Test Item Value Reference Range Interpretation Comments Cholesterol Total 127 mg/dL 0-200 RISK OF HE ART (test code = DISEASEPublishe d by Cholesterol Total) [place] [employer] Dottie lyte Optimal Borderl ine Increased RiskC HOL <200 200-239 >2 40TRIG <150 150-199 >2 00HDL Male >60 <40H DL Female >60 <5 0LDL <100 130-159 >1 60LDL Near optimal is 100-129 Triglycerides (test 78 mg/dL 9-200 code = Triglycerides) HDL (test code = HDL) 66 mg/dL 40-60 H LDL (test code = LDL) 46 mg/dL 0-130 The eq uation being used in this calcula tion is LDL = (Chol - H DL) - (Trig / 5) VLDL (test code = 16 mg/dL 5-40 The equati on being used VLDL) in this calcula tion is VLDL = Trig / 5 Chol/HDL (test code = 1.9 ratio 0.0-5.0 Chol/HDL) LDL/HDL Ratio (test 1 N The equa tion being used code = LDL/HDL Ratio) in thi s calculation is LDL/HDL Ratio=L DL Calc/HDL Chol Comprehensive Metabolic [id number] 12:18:35 Test Item Value Reference Range Interpretation Comments Sodium Level (test code = Sodium 139.0 mmol/L 135.0-145.0 Level) Potassium Level (test code = 4.8 mmol/L 3.5-5.1 Potassium Level) Chloride Level (test code = 103 mmol/L 98-105 Chloride Level) CO2 (test code = CO2) 28 mmol/L 22-29 Anion Gap (test code = Anion 8 mmol/L 7-16 Gap) BUN (test code = BUN) 8.70 mg/dL 6.00-20.00 Creatinine Level (test code = 0.90 mg/dL 0.70-1.20 Creatinine Level) BUN/Creat Ratio (test code = 10 N BUN/Creat Ratio) Glucose Level (test code = 93 mg/dL 70-115 Glucose Level) Calcium Level (test code = 9.7 mg/dL 8.3-10.5 Calcium Level) Alk Phos (test code = Alk Phos) 77 U/L 40-129 Bilirubin Total (test code = 0.3 mg/dL 0.1-0.9 Bilirubin Total) Albumin Level (test code = 4.3 g/dL 3.5-5.2 Albumin Level) Protein Total (test code = 6.4 g/dL 6.4-8.3 Protein Total) ALT (test code = ALT) 27 U/L 1-41 AST (test code = AST) 27 U/L 1-40 Globulin (test code = Globulin) 2.1 g/dL 2.9-3.1 L A/G Ratio (test code = A/G 2.0 ratio N Ratio) Comprehensive Metabolic [id number] 12:18:35 Test Item Value Reference Range Interpretation Comments Sodium Level (test 139.0 mmol/L 135.0-145.0 code = Sodium Level) Potassium Level 4.8 mmol/L 3.5-5.1 (test code = Potassium Level) Chloride Level (test 103 mmol/L 98-105 code = Chloride Level) CO2 (test code = 28 mmol/L 22-29 CO2) Anion Gap (test code 8 mmol/L 7-16 = Anion Gap) BUN (test code = 8.70 mg/dL 6.00-20.00 BUN) Creatinine Level 0.90 mg/dL 0.70-1.20 (test code = Creatinine Level) BUN/Creat Ratio 10 N (test code = BUN/Creat Ratio) Glucose Level (test 93 mg/dL 70-115 code = Glucose Level) Calcium Level (test 9.7 mg/dL 8.3-10.5 code = Calcium Level) Alk Phos (test code 77 U/L 40-129 = Alk Phos) Bilirubin Total 0.3 mg/dL 0.1-0.9 (test code = Bilirubin Total) Albumin Level (test 4.3 g/dL 3.5-5.2 code = Albumin Level) Protein Total (test 6.4 g/dL 6.4-8.3 code = Protein Total) ALT (test code = 27 U/L 1-41 ALT) AST (test code = 27 U/L 1-40 AST) Globulin (test code 2.1 g/dL 2.9-3.1 L = Globulin) A/G Ratio (test code 2.0 ratio N = A/G Ratio) eGFR AA (test code = >60 N eGFR (e stimated eGFR AA) mL/min/1.73 m2 Glomerular Filtration Rate ) is an estimated va lue, calculated from the patient's serum creatinine usin g the MDRD equation. It is NOT the patient 's actual GFR. The eGFR provides a more clinically usef ul measure of kidn ey disease than se rum creatinine alone.This calculation francisco javier es sex and race in to account, if the information is provided. If th e race is not provided, and t he patient is -Stacey n, multiply by 1.2 12. If sex is not provided, and t he patient is fema le, multiply by 0.7 42. Results for pat ients <18 years of ag e have not been validated by th e MDRD study and should be interpreted wit h caution. eGFR R esult Interpretation: eGFR > or = 60 is in the Normal RangeeGF R < 60 may mean kid bekah diseaseeGFR < 1 5 may mean kidney failure Rang es recommended by the National Kidney Foundation, http://nkdep.ni h.gov Alcohol [id number] 12:18:35 Test Item Value Reference Range Interpretation Comments Ethanol Level (test <0.00 g/dL 0.00-0.01 Intoxica lázaro 0.080 g/dL code = Ethanol or more Level) Ethanol Inst (test <0 N code = Ethanol Inst) Comprehensive Metabolic [id number] 12:18:35 Test Item Value Reference Range Interpretation Comments Sodium Level (test 139.0 mmol/L 135.0-145.0 code = Sodium Level) Potassium Level 4.8 mmol/L 3.5-5.1 (test code = Potassium Level) Chloride Level (test 103 mmol/L 98-105 code = Chloride Level) CO2 (test code = 28 mmol/L 22-29 CO2) Anion Gap (test code 8 mmol/L 7-16 = Anion Gap) BUN (test code = 8.70 mg/dL 6.00-20.00 BUN) Creatinine Level 0.90 mg/dL 0.70-1.20 (test code = Creatinine Level) BUN/Creat Ratio 10 N (test code = BUN/Creat Ratio) Glucose Level (test 93 mg/dL 70-115 code = Glucose Level) Calcium Level (test 9.7 mg/dL 8.3-10.5 code = Calcium Level) Alk Phos (test code 77 U/L 40-129 = Alk Phos) Bilirubin Total 0.3 mg/dL 0.1-0.9 (test code = Bilirubin Total) Albumin Level (test 4.3 g/dL 3.5-5.2 code = Albumin Level) Protein Total (test 6.4 g/dL 6.4-8.3 code = Protein Total) ALT (test code = 27 U/L 1-41 ALT) AST (test code = 27 U/L 1-40 AST) Globulin (test code 2.1 g/dL 2.9-3.1 L = Globulin) A/G Ratio (test code 2.0 ratio N = A/G Ratio) eGFR AA (test code = >60 N eGFR (e stimated eGFR AA) mL/min/1.73 m2 Glomerular Filtration Rate ) is an estimated va lue, calculated from the patient's serum creatinine usin g the MDRD equation. It is NOT the patient 's actual GFR. The eGFR provides a more clinically usef ul measure of kidn ey disease than se rum creatinine alone.This calculation francisco javier es sex and race in to account, if the information is provided. If th e race is not provided, and t he patient is -Stacey n, multiply by 1.2 12. If sex is not provided, and t he patient is fema le, multiply by 0.7 42. Results for pat ients <18 years of ag e have not been validated by th e MDRD study and should be interpreted wit h caution. eGFR R esult Interpretation: eGFR > or = 60 is in the Normal RangeeGF R < 60 may mean kid bekah diseaseeGFR < 1 5 may mean kidney failure Rang es recommended by the National Kidney Foundation, http://nkdep.ni h.gov eGFR Non-AA (test >60.00 N eGFR (kevin mated code = eGFR Non-AA) mL/min/1.73 m2 Glomer ular Filtration Rate ) is an estimated va lue, calculated from the patient's serum creatinine usin g the MDRD equation. It is NOT the patient 's actual GFR. The eGFR provides a more clinically usef ul measure of kidn ey disease than se rum creatinine alone.This calculation francisco javier es sex and race in to account, if the information is provided. If th e race is not provided, and t he patient is -Stacey n, multiply by 1.2 12. If sex is not provided, and t he patient is fema le, multiply by 0.7 42. Results for pat ients <18 years of ag e have not been validated by th e MDRD study and should be interpreted wit h caution. eGFR R esult Interpretation: eGFR > or = 60 is in the Normal RangeeGF R < 60 may mean kid bekah diseaseeGFR < 1 5 may mean kidney failure Rang es recommended by the National Kidney Foundation, http://nkdep.ni h.gov Drugs of Abuse Urine 11:40:37 Test Item Value Reference Range Interpretation Comments Amphetamine Screen Ur Negative Negative For di agnostic (test code = Amphetamine pur poses only. Screen Ur) Positive result s should always b e assessed in conjunction wit h a patient's medic al history. Barbiturate Screen Ur Negative Negative (test code = Barbiturate Screen Ur) Benzodiazepines Ur (test Negative Negative code = Benzodiazepines Ur) Cocaine Screen Ur (test Negative Negative code = Cocaine Screen Ur) U Methadone (test code = Negative Negative U Methadone) Opiate Screen Ur (test Negative Negative code = Opiate Screen Ur) U PCP Scrn (test code = U Negative Negative PCP Scrn) U Propoxyphene (test code Negative Negative = U Propoxyphene) Cannabinoid Screen Ur Negative Negative (test code = Cannabinoid Screen Ur) Urinalysis with Culture, if [id number] 11:17:21 Test Item Value Reference Range Interpretation Comments UA Color (test code = YELLO Yellow UA Color) UA Appear (test code = CLEAR Clear UA Appear) UA pH (test code = UA 7 N pH) UA Spec Grav (test 1.008 1.001-1.035 code = UA Spec Grav) UA Glucose (test code NEG Negative = UA Glucose) UA Bili (test code = NEG Negative UA Bili) UA Ketones (test code NEG Negative = UA Ketones) UA Blood (test code = NEG Negative UA Blood) UA Protein (test code NEG Negative = UA Protein) UA Urobilinogen (test 0.2 mg/dL N code = UA Urobilinogen) UA Nitrite (test code NEG Negative = UA Nitrite) UA Leuk Est (test code NEG Negative = UA Leuk Est) UA Micro Ind? (test Not Indicated Not Indicated Result created by code = UA Micro Ind?) rule GL_SJM_UA_MICRO _IN D Automated [id number] 11:14:20 Test Item Value Reference Range Interpretation Comments Neutro Auto (test code = Neutro 73.7 % 36.0-70.0 H Auto) Lymph Auto (test code = Lymph Auto) 18.8 % 12.0-44.0 Foster Auto (test code = Foster Auto) 5.0 % 0.0-11.0 Eos, Auto (test code = Eos, Auto) 1.4 % 0.0-7.0 Basophil Auto (test code = Basophil 0.7 % 0.0-2.0 Auto) Neutro Absolute (test code = Neutro 6.3 x10 1.6-7.4 Absolute) Lymph Absolute (test code = Lymph 1.61 x10 .50-4.60 Absolute) Foster Absolute (test code = Foster .43 x10 .00-1.20 Absolute) Eos Absolute (test code = Eos 0.12 x10 0.00-0.74 Absolute) Baso Absolute (test code = Baso 0.06 x10 0.00-0.21 Absolute) IG [id number] 11:14:20 Test Item Value Reference Range Interpretation Comments IG (test code = IG) 0.4 % 0.0-5.0 IG Abs (test code = IG Abs) 0 x10 N Complete Blood Count with [id number] 11:14:19 Test Item Value Reference Range Interpretation Comments WBC (test code = WBC) 8.6 x10 4.4-10.5 RBC (test code = RBC) 4.45 x10 4.10-5.70 Hgb (test code = Hgb) 14.0 g/dL 13.4-17.4 Hct (test code = Hct) 40.5 % 38.7-52.0 MCV (test code = MCV) 91.00 fL 80.00-100.00 MCHC (test code = 34.60 g/dL 32.00-37.50 MCHC) RDW CV (test code = 13.0 % 11.5-14.5 RDW CV) MCH (test code = MCH) 31.5 pg 27.0-32.5 Platelets (test code = 296.0 x10 140.0-440.0 Platelets) MPV (test code = MPV) 10.8 fL N Slide Review (test Auto Auto Result cr eated by code = Slide Review) GL_SJM_ SLIDE_REV_AUTO nRBC (test code = 0 N nRBC) NRBC Abs (test code = 0.00 x10 N NRBC Abs) IPF (test code = IPF) 0 % N
[2019-12-29 22:41] LABS: Basophils % 0.6 % (0-1.3); Hematocrit 42.3 % (39.6-49.0); Lymphocytes % 8.2 % (15.3-44.8); MPV 9.1 fL (7.6-11.3); RBC Red Blood Cell Count 4.78 M/uL (4.33-5.43)
[2019-12-29 23:04] LABS: ALT/SGPT 75 U/L (12-78); AST/SGOT 249 U/L (15-37); Albumin 4.5 g/dL (3.4-5.0); Alkaline Phosphatase 100 U/L (45-117); BUN Blood Urea Nitrogen 14 mg/dL (7-18); Bicarbonate 26 mmol/L (21-32); Bilirubin Direct 0.2 mg/dL (0-0.2); Bilirubin Total 0.6 mg/dL (0.2-1.0); Glucose Level 92 mg/dL (74-106); Potassium 4.1 mmol/L (3.5-5.1); Protein, Total 7.7 g/dL (6.4-8.2); Sodium Level 143 mmol/L (136-145)
[2019-12-30 01:43] LABS: Urine Blood TRACE (NEG); Urine Glucose NEGATIVE (NEG); Urine Protein 1+ (NEG); Urine Specific Gravity >1.030 (1.005-1.030)
[2019-12-30 01:45] LABS: Barbiturates NEGATIVE (NEGATIVE); Benzodiazepines NEGATIVE (NEGATIVE); Cocaine NEGATIVE (NEGATIVE); METHAMPHETAM POSITIVE (NEGATIVE); Methadone NEGATIVE (NEGATIVE); Opiates NEGATIVE (NEGATIVE); Phencyclidine NEGATIVE (NEGATIVE); THC Cannibis NEGATIVE (NEGATIVE)
[2019-12-30] MEDS ORDERED: LORazepam 2 MG/ML VIAL ONE (03:02)
--- NOTE | 2019-12-30 08:56 | EKG ---
Test Date: 2019-12-29 Test Time: 22:41:28 Hvac/R Service Technician: JULIAN MEASUREMENT RESULTS: Intervals: Rate: 109 VT: 138 QRSD: 96 QT: 352 QTc: 474 [place]: P: 80 VT: 138 QRS: 86 T: 46 INTERPRETIVE STATEMENTS: Sinus tachycardia Possible Left atrial enlargement Incomplete right bundle branch block Borderline ECG Compared to ECG 11/24/2019 01:57:05 Right-axis deviation no longer present Electronically Signed On 12-30-19 08:55:09 CDT by Ángel Maki
--- NOTE | 2019-12-30 09:58 | EDPHYS ---
Physician Documentation [facility] Name: Carlos Walker Age: 29 yrs Sex: Male : 1990 Arrival Date: 12/29/2019 Time: 21:48 Bed 13 Private MD: ED Physician Keagan Michaud HPI: 12/29 03:16 This 29 yrs old Male presents to ER via EMS with complaints of Psych Problem, tw4 Pain All Over. 03:16 The patient presents to the emergency department with psychosis, has experienced tw4 auditory hallucinations, has experienced visual hallucinations. Onset: The symptoms/episode began/occurred yesterday. Past psychiatric history: Prior diagnosis: schizophrenia. Severity of symptoms: Pertinent positives; "hurting all over", At their worst the symptoms were moderate in the emergency department the symptoms are unchanged. The patient has experienced similar episodes in the past, several times. Historical: - Allergies: 12/28 21:53 Abilify; sg 21:53 Promethazine; sg - PMHx: 21:53 manic bipolar disorder; Schizophrenia; sg - PSHx: 21:53 None; sg - Immunization history:: Adult Immunizations not up to date. - Social history:: Smoking status: Patient denies any tobacco usage or history of. ROS: 12/29 03:16 Constitutional: Negative for fever, chills, and weight loss, Eyes: Negative for injury, tw4 pain, redness, and discharge, Cardiovascular: Negative for chest pain, palpitations, and edema, Respiratory: Negative for shortness of breath, cough, wheezing, and pleuritic chest pain, Abdomen/GI: Negative for abdominal pain, nausea, vomiting, diarrhea, and constipation, MS/Extremity: Negative for injury and deformity, Skin: Negative for injury, rash, and discoloration, Neuro: Negative for headache, weakness, numbness, tingling, and seizure. Psych: Positive for drug dependence, auditory hallucinations, visual hallucinations, Negative for homicidal ideation, suicide gesture, suicidal ideation. Exam: 03:16 Constitutional: This is a well developed, well nourished patient who is awake, alert, tw4 and in no acute distress. Head/Face: Normocephalic, atraumatic. Chest/axilla: Normal chest wall appearance and motion. Nontender with no deformity. No lesions are appreciated. Cardiovascular: Regular rate and rhythm with a normal S1 and S2. No gallops, murmurs, or rubs. Normal PMI, no JVD. No pulse deficits. Respiratory: Lungs have equal breath sounds bilaterally, clear to auscultation and percussion. No rales, rhonchi or wheezes noted. No increased work of breathing, no retractions or nasal flaring. Abdomen/GI: Soft, non-tender, with normal bowel sounds. No distension or tympany. No guarding or rebound. No evidence of tenderness throughout. 03:16 Psych: Behavior/mood is anxious, aggressive, uncooperative, Affect is animated, Oriented to person, place, time, Patient has no thoughts/intents to harm self or others. Judgement / Insight is impaired. Delusions/hallucinations are present and described as hearing voices and hearing animal sounds. Vital Signs: 12/28 21:50 BP 132 / 70; Pulse 87 MON; Resp 18 S; Temp 97.7; Pulse Ox 100% on R/A; Pain 7/10; sg 12/29 02:00 Weight 63.5 kg; Height 5 ft. 10 in. (177.80 cm); sg 02:19 BP 140 / 95; Pulse 94; Resp 18; Temp 98.3; Pulse Ox 98% on R/A; Pain 0/10; fu 02:00 Body Mass Index 20.09 (63.50 kg, 177.80 cm) sg MDM: 12/28 22:05 Patient medically screened. tw4 12/29 03:16 Differential diagnosis: drug withdrawal. acute psychotic break. Data reviewed: vital tw4 signs, nurses notes. Data reviewed: lab test result(s), CBC, electrolytes, urine drug screen. Data interpreted: Pulse oximetry: Interpretation: normal. Counseling: I had a detailed discussion with the patient and/or guardian regarding: the historical points, exam findings, and any diagnostic results supporting the discharge/admit diagnosis, lab results. 06:44 Medication response: ativan. Awaiting: transfer to another facility, Psychiatric 4 [employer]. 09:55 ED course: patient is not sicidal no HI, he is awake and alert and oriented time 4. ma2 12/28 22:05 Order name: Acetaminophen; Complete Time: 03:23 tw4 12/29 03:28 Interpretation: Abnormal: ACETA < 2.0. 12/28 22:05 Order name: Basic Metabolic Panel; Complete Time: 03:23 12/29 03:29 Interpretation: Normal except: CL 108; GFR 69. 12/28 22:05 Order name: CBC with Diff; Complete Time: 03:23 12/29 03:29 Interpretation: Normal except: WBC 12.4; LYM% 8.2; KAITY% 85.4; NEUT A 10.6. 12/28 22:05 Order name: ETOH Level; Complete Time: 03:23 12/29 03:30 Interpretation: Within normal limits: ETOH < 10. 12/28 22:05 Order name: Hepatic Function; Complete Time: 03:23 12/29 03:29 Interpretation: Normal except: AST 249. 12/28 22:05 Order name: PT-INR; Complete Time: 03:23 12/29 03:31 Interpretation: Within normal limits: PT 11.8. 12/28 22:05 Order name: Ptt, Activated; Complete Time: 03:23 12/29 03:31 Interpretation: Within normal limits: PTT 26.9. 12/28 22:05 Order name: Salicylate; Complete Time: 03:23 12/29 03:30 Interpretation: Within normal limits: ISA 2.6. 12/28 22:05 Order name: Urine Drug Screen; Complete Time: 03:23 12/29 03:30 Interpretation: Normal except: METHAMPHETAMINE POSITIVE. 12/28 22:05 Order name: EKG; Complete Time: 22:06 12/29 01:07 Order name: Urine Dipstick--Ancillary (enter results); Complete Time: 03:23 mw2 12/29 09:30 Order name: Diet Finger Food; Complete Time: 09:31 em1 12/28 22:05 Order name: IV Saline Lock; Complete Time: 22:33 12/28 22:05 Order name: Labs collected and sent; Complete Time: 22:33 12/28 22:05 Order name: Urine Dipstick-Ancillary (obtain specimen); Complete Time: 01:01 tw4 EC:45 Rate is 109 beats/min. Rhythm is regular with Right bundle branch block. QRS [place] is tw4 Normal. AL interval is normal. QRS interval is normal. QT interval is normal. No Q waves. T waves are Normal. No ST changes noted. Clinical impression: Sinus tachycardia. Interpreted by me. Reviewed by me. Administered Medications: 02:59 Drug: Ativan 2 mg Route: IVP; Site: right antecubital; fu 03:59 Follow up: Response: Anxiety decreased fu Disposition: 12/30/19 09:57 Discharged to Home. Impression: Schizophrenia. - Condition is Stable. - Discharge Instructions: Schizophrenia. - Medication Reconciliation Form, Thank You Letter, Antibiotic Education, Prescription Opioid Use form. - Follow up: Private Physician; When: Tomorrow; Reason: If symptoms return, Continuance of care. Signatures: Dispatcher [employer] Greer Khan RN RN dm5 Jovon Watt RN YOHANNES Carmelo Harvey RN Jairo Martinez MD MD ma2 Keagan Michaud MD MD tw4 Corrections: (The following items were deleted from the chart) 10:39 09:57 12/30/2019 09:57 Discharged to Home. Impression: Schizophrenia. Condition is dm5 Stable. Forms are Medication Reconciliation Form, Thank You Letter, Antibiotic Education, Prescription Opioid Use. Follow up: Private Physician; When: Tomorrow; Reason: If symptoms return, Continuance of care. collin
--- NOTE | 2019-12-30 09:58 | ER ---
Nurse's Notes [facility] Name: Carlos Walker Age: 29 yrs Sex: Male : 1990 Arrival Date: 12/29/2019 Time: 21:48 Bed 13 Private MD: Diagnosis: Schizophrenia Presentation: 12/28 21:50 Chief complaint: EMS states: pt reports having pain all over, mostly in the mouth and sg gumlines, pt states he is hearing voices because he did Methamphetamine today and has been off of his usual psych medications, pt reports having been a pt of [facility] several times. Coronavirus screen: Proceed with normal triage. Ebola Screen: Patient negative for fever greater than or equal to 101.5 degrees Fahrenheit, and additional compatible Ebola Virus Disease symptoms Patient denies exposure to infectious person. Patient denies travel to an Ebola-affected area in the 21 days before illness onset. No symptoms or risks identified at this time. Initial Sepsis Screen: Does the patient meet any 2 criteria? No. Patient's initial sepsis screen is negative. Does the patient have a suspected source of infection? No. Patient's initial sepsis screen is negative. Risk Assessment: Do you want to hurt yourself or someone else? Patient reports no desire to harm self or others. Onset of symptoms was December 29, 2019. Care prior to arrival: None. Transition of care: patient was not received from another setting of care. 21:50 Method Of Arrival: EMS: [facility] sg 21:50 Acuity: EDD 3 sg Historical: - Allergies: 21:53 Abilify; sg 21:53 Promethazine; sg - PMHx: 21:53 manic bipolar disorder; Schizophrenia; sg - PSHx: 21:53 None; sg - Immunization history:: Adult Immunizations not up to date. - Social history:: Smoking status: Patient denies any tobacco usage or history of. Screenin/04 02:30 Abuse screen: Denies threats or abuse. Nutritional screening: No deficits noted. fu Tuberculosis screening: No symptoms or risk factors identified. Fall Risk None identified. Assessment: 02:17 General: Appears uncomfortable, unkempt, Behavior is calm, cooperative, appropriate for fu age, Denies fever. Pain: Complains of pain in all over mouth and gum lines. Neuro: Level of Consciousness is awake, alert, obeys commands, Oriented to person, place, time, situation, Pillow Filler are equal bilaterally Moves all extremities. Gait is steady. Cardiovascular: Denies chest pain, nausea, shortness of breath, vomiting, Capillary refill < 3 seconds. Respiratory: Airway is patent Trachea midline Respiratory effort is even, unlabored, Respiratory pattern is regular. 02:50 Reassessment: Patient is hallucination, cussing with verbal threats, and pacing inside fu the room, removed his clothes and throw it on the floor. Dr. Brown aware with order to give Ativan 2mg. 04:59 Reassessment: patient lying in bed, eyes close, quite, not in respiratory distress, fu precautions in place, with sitter. 06:00 Reassessment: patient asleep in bed, not in respiratory distress. fu 06:15 Reassessment: No changes from previously documented assessment. fu 07:39 Reassessment: pt appears to be resting comfortably, respirations even and unlabored, dm5 cords and everything that could be removed for the room for additional patient safety was removed. Dr. Kraft received report on pt and will go see pt when he wakes up. Pt has a sitter due to previous agitation. Pt is wearing his own clothing at this time. 10:33 Reassessment: small baggy of unknown substance found on the pt. Police notified to pick dm5 up substance. Police in room with pt at this time. Psych: 12/28 21:50 Subjective: Patient's mood is angry, irritable, Delusions are denied, Hallucinations sg are auditory, Having thoughts of denies suicidal or homicidal thoughts at this time. Objective: Patient is cooperative, challenging, irritable, Speech is loud, Affect is blunted, inappropriate. Interventions: Searched person for dangerous items. Suicide Risk Assessment: Sad Person Scale: Sex of patient: Male: Score 1 point. Age of patient: Score 1 point if patient 15-34. Depression: Score 0 point if signs of depression are not present. Previous Attempt: Score 0 point if patient has not previously attempted suicide. Substance Abuse: Score 1 point if patient abuses alcohol or drugs. Rational Thinking: Score 1 point if patient is lacking rational thinking. Social Support: Score 1 point if social support is lacking and/or unavailable. Organized Plan: Score 0 if patient did not have an organized plan in place. Relationship: Score 1 point if patient is , , , or for a single male Chronic Sickness: Score 1 point if patient has illness, chronic, debilitating, or severe. TOTAL POINTS: If total points are 7-10, the proposed clinical action is to hospitalize or commit. Implement suicide precautions. Safety Checks: Door is open. No visitors are present at this time. a sitter is with the patient at this time. Patient uses methamphetamines weekly. Last use was 1 days ago. Vital Signs: 21:50 BP 132 / 70; Pulse 87 MON; Resp 18 S; Temp 97.7; Pulse Ox 100% on R/A; Pain 7/10; sg 12/29 02:00 Weight 63.5 kg; Height 5 ft. 10 in. (177.80 cm); sg 02:19 BP 140 / 95; Pulse 94; Resp 18; Temp 98.3; Pulse Ox 98% on R/A; Pain 0/10; fu 02:00 Body Mass Index 20.09 (63.50 kg, 177.80 cm) ED Course: 12/28 21:48 Patient arrived in ED. sg 21:50 Arm band placed on. sg 21:53 Triage completed. sg 22:05 Keagan Michaud MD is Attending Physician. tw4 22:18 Carmelo Harvey RN is Primary Nurse. fu 22:32 Safety checks: Items removed: yes. Door open/sign placed on door: yes. Family/friend jp3 present: no. Bed in low position. Call light in reach. Side rails up X 1. Verbal reassurance given. 22:32 Initial lab(s) drawn, by pr, sent to lab. Inserted saline lock: 20 gauge in right upper jp3 arm, using aseptic technique. Blood collected. 22:44 EKG done, by ED staff, reviewed by Keagan Michaud MD. jp3 12/29 00:52 Urine Drug Screen Sent. fu 07:11 Report given to YOHANNES Bond. fu 07:11 Report received from Carmelo Brown RN. dm5 08:00 No provider procedures requiring assistance completed. IV discontinued, intact, dm5 bleeding controlled, No redness/swelling at site. Pressure dressing applied. 09:27 [place] [facility] Pt intake called to advise that no appropriate beds available right now em1 for pt. However, pt will be placed on wait list for bed assignment. 10:39 Primary Nurse role handed off by Carmelo Harvey RN dm5 10:39 Greer Rivero, RN is Primary Nurse. dm5 Administered Medications: 02:59 Drug: Ativan 2 mg Route: IVP; Site: right antecubital; fu 03:59 Follow up: Response: Anxiety decreased fu Outcome: 09:57 Discharge ordered by MD. polanco 10:38 Discharged to discharge instruction given to pt with verbal acknowledgment of dm5 instructions. Pt released into police custody. 10:38 Condition: good 10:38 Discharge instructions given to patient, police, Instructed on discharge instructions. 10:39 Patient left the ED. dm5 Signatures: Greer Rivero RN RN [email or web address] Jovon Watt RN RN sg Martinez, Eric em1 Carmelo Harvey RN RN fu Alzahri, Mohammad, MD MD ma2 Keagan Michaud MD MD tw4 Andrew Cordon 3 Corrections: (The following items were deleted from the chart) 03:04 03:02 Reassessment: fu fu
[2019-12-30 10:47] VITALS: BP 140/95; TEMP 98.3; O2SAT 98
== END 2019-12-30 10:39 | disposition home or self-care (01) ==
LOC: ER 21:36
DX: F20.9 Schizophrenia, unspecified (principal); Z88.8 Allergy status to other drugs, medicaments and biological substances
CPT/HCPCS: 36415; 80048; 80076; 80307; 80320; 80329; 81003; 85025; 85610; 85730; 93005; 96374; 99285

== ENCOUNTER 2021-10-06 20:06 | Emergency (ER) | payer SELFPAY ==
--- OUTSIDE RECORDS SUMMARY | 2021-10-06 20:09 | XMS REPORT | Continuity of Care Document ---
:1990 Author Organization [facility] t Address [address] [place] [address] Care Team Providers Name Role Phone Cipriano Attending Clinician Unavailable Cipriano Attending Clinician Unavailable Physician, Primary or Family Admitting Clinician Unavailabl e Cipriano Admitting Clinician Unavailable Payers Payer Name Policy Type Policy Number Effective Date Expiration Date S ource Advance Directives Directive Decision Effective Date Termination Date Comments Sour ce Yes N/A [facility] Condition Condition Condition Status Onset Resolution Last Treating Co mments Source Name Details Category Date Date Treatment Clinician Date Problem Problem [facility] Allergies, Adverse Reactions, Alerts Allergy Allergy Status Severity Reaction(s) Onset Inactive Treating Comm ents Source Name Type Date Date Clinician prometha DA Active [place] 2020-0 [facility] z[facility]05 [place] 00:[facility]: d 00 [facility] aripipra DA Active SV 2020-0 [facility] zole [facility]-05 [place] 00:[facility]: d 00 [facility] prometha DA Active [place] TREMORS 2020-0 [facility] zine 3-05 [place] 00:00: d 00 [facility] aripipra DA Active SV DYSTONIC 2020-0 [facility] zole REACTION 3-05 [place] 00:00: d 00 [facility] prometha Drug Active [facility] Abilify Drug Active [facility] prometha Drug Active [facility] Abilify Drug Active [facility] prometha Drug Active [facility] prometha Drug Active [facility] Abilify Drug Active [facility] Abilify Drug Active [facility] prometha Drug Active [facility] Abilify Drug Active [facility] prometha Drug Active [facility] Abilify Drug Active [facility] Social History Social Habit Start Date Stop Date Quantity Comments Source Sex Assigned At [birth year] Female [facility] 00:00:00 00:00:00 Smoking Status Start Date Stop Date Source Unknown if ever smoked Ongo Medications This patient has no known medications. Vital Signs Vital Name Observation Time Observation Value Comments Source Height/Length Measured 2021-07-15 10:28:49 172 cm Weight Dosing 2021-07-15 10:28:49 65.00 kg Height/Length Measured 2021-07-15 10:28:55 173 cm Weight Dosing 2021-07-15 10:28:55 68.40 kg Height/Length Measured 2021-07-15 10:28:49 173 cm Weight Dosing 2021-07-15 10:28:49 68.40 kg Height/Length Measured 2021-07-15 09:57:39 173 cm Weight Dosing 2021-07-15 09:57:39 68.40 kg Height/Length Measured 2021-07-15 09:34:41 173 cm Weight Dosing 2021-07-15 09:34:41 68.40 kg Height/Length Measured 2021-07-15 09:28:25 173 cm Weight Dosing 2021-07-15 09:28:25 68.40 kg BP Diastolic 2020-08-03 15:36:00 81 mm[Hg] [facility] BP Systolic 2020-08-03 15:36:00 114 mm[Hg] [facility] Heart Rate 2020-08-03 15:36:00 69 /min [facility] Respiratory rate 2020-08-03 15:36:00 18 /min [employer] [facility] Body Temperature 2020-08-03 15:36:00 98.7 [degF] [employer] [facility] BP Diastolic 2020-08-03 15:10:00 81 mm[Hg] [facility] BP Systolic 2020-08-03 15:10:00 114 mm[Hg] [facility] Heart Rate 2020-08-03 15:10:00 69 /min [facility] Respiratory rate 2020-08-03 15:10:00 18 /min [facility] [employer] [facility] Body Temperature 2020-08-03 15:10:00 98.7 [degF] [facility] [employer] Procedures This patient has no known procedures. Encounters Start End Encounter Admission Attending Care Care Encounter Source Date/Time Date/Time Type Type Clinicians Facility Department ID 2021-04-20 Outpatient CAROLYNN PRADHAN [id number] [facility] 22:53:11 [id number] [facility] 2020-08-03 Inpatient CAROLYNN PRADHAN [id number] [facility] 15:06:00 [id number] [facility] 2019-09-01 Inpatient HCAPM KAYLEE [id number] [facility] 06:12:00 [facility] 2019-08-31 Inpatient HCAPM KAYLEE [id number] [facility] 19:06:00 [facility] 2020-08-03 2020-08-03 Departed BAYRON PRADHAN [id number] [facility] 15:24:00 15:37:[address] [facility] 2019-01-21 2019-01-31 Inpatient 1 [facility] PSY [id number] [facility] 10:32:00 13:54:00 [facility] 2018-11-01 2018-11-09 Inpatient 1 [facility] PSY [id number] St. 14:32:00 13:51:00 [facility] Results Test Description Test Time Test Comments Results Result Comments Source BASIC METABOLIC PANEL 2019-09-01 15:01:00 Test Item Value Reference Range Interpretation Comme nts SODIUM (test code = NA) 139 mmol/L 134-147 N POTASSIUM (test code = K) 3.9 mmol/L 3.4-5.0 N CHLORIDE (test code = CL) 107 mmol/L 100-108 N CARBON DIOXIDE (test code = CO2) 29 mmol/L 21-32 ANION GAP (test code = GAP) 3.0 GAP calc 4.0-15.0 L GLUCOSE (test code = GLU) 95 MG/DL 70-110 N BLOOD UREA NITROGEN (test code = BUN) 22 MG/DL 7-18 H GLOMERULAR FILTRATION RATE (test code = GFR) >=60 max estimate estG FR >60 CREATININE (test code = CREAT) 1.0 MG/DL 0.8-1.3 N CALCIUM (test code = CA) 8.4 MG/DL 8.5-10.1 L Last Dose Date: 06/28/00 Dose Time: HEPATIC FUNCTION [id number] 15:01:00 Test Item Value Reference Range Interpretation Comments TOTAL PROTEIN (test code = PROT) 7.5 G/DL 6.4-8.2 N ALBUMIN (test code = ALB) 3.8 G/DL 3.4-5.0 N BILIRUBIN TOTAL (test code = BILT) 0.50 MG/DL 0.2-1.2 N BILIRUBIN DIRECT (test code = 0.20 MG/DL 0.00-0.30 N BILD) BILIRUBIN INDIRECT (test code = 0.30 MG/DL 0.2-1.2 N BILIND) SGOT/AST (test code = AST) 40 Unit/L 15-37 H SGPT/ALT (test code = ALT) 28 Unit/L 12-78 N ALKALINE PHOSPHATASE TOTAL (test 103 Unit/L 50-136 N code = ALKP) Last Dose Date: 06/28/00 Dose Time: [id number] 15:01:00 Test Item Value Reference Range Interpretation Comments ACETAMINOPHEN (test code = ACET) < 2.0 mcG/ML 10.0-30.0 L Last Dose Date: 06/28/00 Dose Time: [id number] 15:01:00 Test Item Value Reference Range Interpretation Comments ALCOHOL (test code = ALC) < 3 MG/DL 0-10 N Last Dose Date: 06/28/00 Dose Time: [id number] 07:32:00 Test Item Value Reference Range Interpretation Comments SALICYLATE (test code = ISA) < 1.7 MG/DL 2.8-20.0 THER L BASIC METABOLIC [id number] 07:24:00 Test Item Value Reference Range Interpretation Comments SODIUM (test code = NA) 139 mmol/L 134-147 N POTASSIUM (test code = 3.9 mmol/L 3.4-5.0 N K) CHLORIDE (test code = 107 mmol/L 100-108 N CL) CARBON DIOXIDE (test 29 mmol/L 21-32 code = CO2) ANION GAP (test code = 3.0 GAP calc 4.0-15.0 L GAP) GLUCOSE (test code = 95 MG/DL 70-110 N GLU) BLOOD UREA NITROGEN 22 MG/DL 7-18 H (test code = BUN) GLOMERULAR FILTRATION >=60 max estimate >60 RATE (test code = GFR) estGFR CREATININE (test code = 1.0 MG/DL 0.8-1.3 N CREAT) CALCIUM (test code = CA) 8.4 MG/DL 8.5-10.1 L Last Dose Date: 06/28/00 Dose Time: 0000HEPATIC FUNCTION [id number] 07:24:00 Test Item Value Reference Range Interpretation Comments TOTAL PROTEIN (test code = PROT) 7.5 G/DL 6.4-8.2 N ALBUMIN (test code = ALB) 3.8 G/DL 3.4-5.0 N BILIRUBIN TOTAL (test code = BILT) 0.50 MG/DL 0.2-1.2 N BILIRUBIN DIRECT (test code = 0.20 MG/DL 0.00-0.30 N BILD) BILIRUBIN INDIRECT (test code = 0.30 MG/DL 0.2-1.2 N BILIND) SGOT/AST (test code = AST) 40 Unit/L 15-37 H SGPT/ALT (test code = ALT) 28 Unit/L 12-78 N ALKALINE PHOSPHATASE TOTAL (test 103 Unit/L 50-136 N code = ALKP) Last Dose Date: 06/28/00 Dose Time: [id number] 07:24:00 Test Item Value Reference Range Interpretation Comments ACETAMINOPHEN (test code = ACET) mcG/ML 10.0-30.0 Last Dose Date: 06/28/00 Dose Time: [id number] 07:24:00 Test Item Value Reference Range Interpretation Comments ALCOHOL (test code = ALC) < 3 MG/DL 0-10 N Last Dose Date: 06/28/00 Dose Time: 0000UA RFLX MICR CULT IF INDICATED 2019-09-01 06:55:00 Test Item Value Reference Range Interpretation Comments UA COLOR (test code = YELLOW discript YEL/STRAW COLU) UA APPEARANCE (test code CLEAR discript CLEAR = APPU) UA GLUCOSE DIPSTICK (test NEGATIVE mg/dL NEG code = DGLUU) UA BILIRUBIN DIPSTICK NEGATIVE mg/dL NEG (test code = BILU) UA KETONE DIPSTICK (test TRACE mg/dL NEG code = KETU) UA SPECIFIC GRAVITY (test >=1.030 SG 1.005-1.030 A code = SGU) UA BLOOD DIPSTICK (test NEGATIVE mg/DL NEG code = DIA) UA PH DIPSTICK (test code 5.5 pH UNITS 5.0-7.0 = ERROL) UA PROTEIN DIPSTICK (test NEGATIVE mg/dL NEG code = PROU) UA UROBILINIOGEN DIPSTICK 0.2 mg/dL <2.0 (test code = URO) UA NITRITE DIPSTICK (test NEGATIVE SCREEN NEG code = DASHA) UA LEUKOCYTE ESTERASE NEGATIVE Leuk/mcL NEGATIVE DIPSTICK (test code = LEUU) UA CULTURE NEEDED? (test NO, WBC<10 Criteria Culture CHK code = UACULT) SOURCE OF URINE: CLEAN CATCHIndication for culture: Suprapubic PainDRUGS OF ABUSE SCREEN [id number] 06:55:00 Test Item Value Reference Range Interpretation Comments URN COCAINE (test code = POSITIVE SCcutoff <300 NG/ML A COCAURN) URN CANNABINOIDS (test code POSITIVE SCcutoff <50 NG/ML A = CANNABURN) URN AMPHETAMINE (test code POSITIVE SCcutoff <1000 NG/ML A = AMPHETURN) URN BARBITURATE (test code NEGATIVE SCcutoff <200 NG/ML = BARBITURN) URN BENZODIAZEPINE (test NEGATIVE SCcutoff <200 NG/ML code = BENZOURN) URN OPIATES (test code = NEGATIVE SCcutoff <2000 NG/ML OPIATURN) URN PHENCYCLIDINE (PCP) POSITIVE SCcutoff <25 NG/ML A (test code = PHENCURN) URN METHADONE (test code = NEGATIVE SCcutoff <300 NG/ML METHAURN) SOURCE OF URINE: CLEAN CATCHIndication for culture: Suprapubic PainUA RFLX MICR CULT IF [id number] 06:44:00 Test Item Value Reference Range Interpretation Comments UA COLOR (test code = YELLOW discript YEL/STRAW COLU) UA APPEARANCE (test code CLEAR discript CLEAR = APPU) UA GLUCOSE DIPSTICK (test NEGATIVE mg/dL NEG code = DGLUU) UA BILIRUBIN DIPSTICK NEGATIVE mg/dL NEG (test code = BILU) UA KETONE DIPSTICK (test TRACE mg/dL NEG code = KETU) UA SPECIFIC GRAVITY (test >=1.030 SG 1.005-1.030 A code = SGU) UA BLOOD DIPSTICK (test NEGATIVE mg/DL NEG code = DIA) UA PH DIPSTICK (test code 5.5 pH UNITS 5.0-7.0 = ERROL) UA PROTEIN DIPSTICK (test NEGATIVE mg/dL NEG code = PROU) UA UROBILINIOGEN DIPSTICK 0.2 mg/dL <2.0 (test code = URO) UA NITRITE DIPSTICK (test NEGATIVE SCREEN NEG code = DASHA) UA LEUKOCYTE ESTERASE NEGATIVE Leuk/mcL NEGATIVE DIPSTICK (test code = LEUU) UA CULTURE NEEDED? (test NO, WBC<10 Criteria Culture CHK code = UACULT) SOURCE OF URINE: CLEAN CATCHIndication for culture: Suprapubic PainDRUGS OF ABUSE SCREEN [id number] 06:44:00 Test Item Value Reference Range Interpretation Comments URN COCAINE (test code = COCAURN) SCcutoff <300 NG/ML URN CANNABINOIDS (test code = SCcutoff <50 NG/ML CANNABURN) URN AMPHETAMINE (test code = SCcutoff <1000 NG/ML AMPHETURN) URN BARBITURATE (test code = SCcutoff <200 NG/ML BARBITURN) URN BENZODIAZEPINE (test code = SCcutoff <200 NG/ML BENZOURN) URN OPIATES (test code = OPIATURN) SCcutoff <2000 NG/ML URN PHENCYCLIDINE (PCP) (test code SCcutoff <25 NG/ML = PHENCURN) URN METHADONE (test code = SCcutoff <300 NG/ML METHAURN) SOURCE OF URINE: CLEAN CATCHIndication for culture: Suprapubic PainUA RFLX MICR CULT IF [id number] 06:43:00 Test Item Value Reference Range Interpretation Comments UA COLOR (test code = COLU) YELLOW discript YEL/STRAW UA APPEARANCE (test code = CLEAR discript CLEAR APPU) UA GLUCOSE DIPSTICK (test NEGATIVE mg/dL NEG code = DGLUU) UA BILIRUBIN DIPSTICK (test NEGATIVE mg/dL NEG code = BILU) UA KETONE DIPSTICK (test TRACE mg/dL NEG code = KETU) UA SPECIFIC GRAVITY (test >=1.030 SG 1.005-1.030 A code = SGU) UA BLOOD DIPSTICK (test NEGATIVE mg/DL NEG code = DIA) UA PH DIPSTICK (test code = 5.5 pH UNITS 5.0-7.0 ERROL) UA PROTEIN DIPSTICK (test NEGATIVE mg/dL NEG code = PROU) UA UROBILINIOGEN DIPSTICK 0.2 mg/dL <2.0 (test code = URO) UA NITRITE DIPSTICK (test NEGATIVE SCREEN NEG code = DASHA) UA LEUKOCYTE ESTERASE NEGATIVE Leuk/mcL NEGATIVE DIPSTICK (test code = LEUU) UA CULTURE NEEDED? (test Criteria Culture CHK code = UACULT) SOURCE OF URINE: CLEAN CATCHIndication for culture: Suprapubic PainDRUGS OF ABUSE SCREEN [id number] 06:43:00 Test Item Value Reference Range Interpretation Comments URN COCAINE (test code = COCAURN) SCcutoff <300 NG/ML URN CANNABINOIDS (test code = SCcutoff <50 NG/ML CANNABURN) URN AMPHETAMINE (test code = SCcutoff <1000 NG/ML AMPHETURN) URN BARBITURATE (test code = SCcutoff <200 NG/ML BARBITURN) URN BENZODIAZEPINE (test code = SCcutoff <200 NG/ML BENZOURN) URN OPIATES (test code = OPIATURN) SCcutoff <2000 NG/ML URN PHENCYCLIDINE (PCP) (test code SCcutoff <25 NG/ML = PHENCURN) URN METHADONE (test code = SCcutoff <300 NG/ML METHAURN) SOURCE OF URINE: CLEAN CATCHIndication for culture: Suprapubic PainCBC W/AUTO [id number] 06:40:00 Test Item Value Reference Range Interpretation Comments WHITE BLOOD CELL (test code = 14.2 K/mm3 3.5-11.0 H WBC) RED BLOOD CELL (test code = RBC) 4.79 M/mm3 4.70-6.10 N HEMOGLOBIN (test code = HGB) 14.6 G/DL 12.3-15.9 N HEMATOCRIT (test code = HCT) 43.6 % 35.8-46.7 N MEAN CELL VOLUME (test code = 91.0 Fl 86.3-98.9 N MCV) MEAN CELL HGB (test code = MCH) 30.5 pg 28.9-34.4 N MEAN CELL HGB CONCETRATION (test 33.5 G/DL 32.1-34.5 N code = MCHC) RED CELL DISTRIBUTION WIDTH (test 13.1 SD 11.5-14.5 N code = RDW) PLATELET COUNT (test code = PLT) 310.0 K/mm3 150-450 N MEAN PLATELET VOLUME (test code = 10.50 fL 7.0-9.6 H MPV) NEUTROPHIL % (test code = NT%) 73.3 % 40-76 N LYMPHOCYTE % (test code = LY%) 18.3 % 20.5-51.1 L MONOCYTE % (test code = MO%) 7.6 % 1.7-9.3 N EOSINOPHIL % (test code = EO%) 0.4 % 0.0-6.0 N BASOPHIL % (test code = BA%) 0.4 % 0.0-2.0 N NEUTROPHIL # (test code = NT#) 10.38 K/mm3 1.8-7.6 H LYMPHOCYTE # (test code = LY#) 2.6 K/mm3 0.6-3.0 N MONOCYTE # (test code = MO#) 1.1 K/mm3 0.2-1.5 N EOSINOPHIL # (test code = EO#) 0.1 K/mm3 0.0-0.4 N BASOPHIL # (test code = BA#) 0.1 K/mm3 0.0-0.2 N MANUAL DIFF REQUIRED (test code = NO DIFF/SCN CRITERIA MDIFF) CBC W/AUTO [id number] 21:39:00 Test Item Value Reference Range Interpretation Comments WHITE BLOOD CELL (test 16.7 K/mm3 3.5-11.0 H code = WBC) RED BLOOD CELL (test 5.04 M/mm3 4.70-6.10 N code = RBC) HEMOGLOBIN (test code 15.4 G/DL 12.3-15.9 N = HGB) HEMATOCRIT (test code 46.5 % 35.8-46.7 N = HCT) MEAN CELL VOLUME (test 92.3 Fl 86.3-98.9 N code = MCV) MEAN CELL HGB (test 30.6 pg 28.9-34.4 N code = MCH) MEAN CELL HGB 33.1 G/DL 32.1-34.5 N CONCETRATION (test code = MCHC) RED CELL DISTRIBUTION 13.3 SD 11.5-14.5 N WIDTH (test code = RDW) PLATELET COUNT (test 342.0 K/mm3 150-450 N code = PLT) MEAN PLATELET VOLUME 11.30 fL 7.0-9.6 H (test code = MPV) NEUTROPHIL % (test 78.7 % 40-76 H code = NT%) LYMPHOCYTE % (test 13.2 % 20.5-51.1 L code = LY%) MONOCYTE % (test code 7.4 % 1.7-9.3 N = MO%) EOSINOPHIL % (test 0.5 % 0.0-6.0 N code = EO%) BASOPHIL % (test code 0.2 % 0.0-2.0 N = BA%) NEUTROPHIL # (test 13.12 K/mm3 1.8-7.6 H code = NT#) LYMPHOCYTE # (test 2.2 K/mm3 0.6-3.0 N code = LY#) MONOCYTE # (test code 1.2 K/mm3 0.2-1.5 N = MO#) EOSINOPHIL # (test 0.1 K/mm3 0.0-0.4 N code = EO#) BASOPHIL # (test code 0.0 K/mm3 0.0-0.2 N = BA#) MANUAL DIFF REQUIRED NO DIFF/SCN CRITERIA SLIDE R EVIEW (test code = MDIFF) CONSISTA NT WITH AUTO DIFFERENTIAL. CBC W/AUTO [id number] 20:15:00 Test Item Value Reference Range Interpretation Comments WHITE BLOOD CELL (test code = 16.7 K/mm3 3.5-11.0 H WBC) RED BLOOD CELL (test code = RBC) 5.04 M/mm3 4.70-6.10 N HEMOGLOBIN (test code = HGB) 15.4 G/DL 12.3-15.9 N HEMATOCRIT (test code = HCT) 46.5 % 35.8-46.7 N MEAN CELL VOLUME (test code = 92.3 Fl 86.3-98.9 N MCV) MEAN CELL HGB (test code = MCH) 30.6 pg 28.9-34.4 N MEAN CELL HGB CONCETRATION (test 33.1 G/DL 32.1-34.5 N code = MCHC) RED CELL DISTRIBUTION WIDTH (test 13.3 SD 11.5-14.5 N code = RDW) PLATELET COUNT (test code = PLT) 342.0 K/mm3 150-450 N MEAN PLATELET VOLUME (test code = 11.30 fL 7.0-9.6 H MPV) NEUTROPHIL % (test code = NT%) % 40-76 H LYMPHOCYTE % (test code = LY%) % 20.5-51.1 L MONOCYTE % (test code = MO%) % 1.7-9.3 N EOSINOPHIL % (test code = EO%) % 0.0-6.0 N BASOPHIL % (test code = BA%) % 0.0-2.0 N NEUTROPHIL # (test code = NT#) K/mm3 1.8-7.6 H LYMPHOCYTE # (test code = LY#) K/mm3 0.6-3.0 N MONOCYTE # (test code = MO#) K/mm3 0.2-1.5 N EOSINOPHIL # (test code = EO#) K/mm3 0.0-0.4 N BASOPHIL # (test code = BA#) K/mm3 0.0-0.2 N MANUAL DIFF REQUIRED (test code = DIFF/SCN CRITERIA MDIFF) COMPREHENSIVE METABOLIC [id number] 20:01:00 Test Item Value Reference Range Interpretation Comments SODIUM (test code = NA) 141 mmol/L 134-147 N POTASSIUM (test code = K) 3.4 mmol/L 3.4-5.0 N CHLORIDE (test code = CL) 108 mmol/L 100-108 N CARBON DIOXIDE (test code = 21 mmol/L 21-32 N CO2) ANION GAP (test code = GAP) 12.0 GAP calc 4.0-15.0 N GLUCOSE (test code = GLU) 140 MG/DL 70-110 H BLOOD UREA NITROGEN (test code 21 MG/DL 7-18 H = BUN) GLOMERULAR FILTRATION RATE 51 estGFR >60 L (test code = GFR) CREATININE (test code = CREAT) 1.7 MG/DL 0.8-1.3 H TOTAL PROTEIN (test code = 8.5 G/DL 6.4-8.2 H PROT) ALBUMIN (test code = ALB) 4.3 G/DL 3.4-5.0 N GLOBULIN (test code = GLOB) 4.2 GM/dL ALBUMIN/GLOBULIN RATIO (test 1.0 RATIO 1.2-2.2 L code = A/G) CALCIUM (test code = CA) 9.2 MG/DL 8.5-10.1 N BILIRUBIN TOTAL (test code = 0.40 MG/DL 0.2-1.2 N BILT) SGOT/AST (test code = AST) 42 Unit/L 15-37 H SGPT/ALT (test code = ALT) 35 Unit/L 12-78 N ALKALINE PHOSPHATASE TOTAL 114 Unit/L 50-136 N (test code = ALKP) Valproic Acid [id number] 08:10:30 Test Item Value Reference Range Interpretation Comments Valproic Acid Level (test code 94.1 ug/mL(g) 50.0-100.0 = Valproic Acid Level) Hemoglobin [id number] 09:40:02 Test Item Value Reference Range Interpretation Comments Hemoglobin A1c (test code 5.0 % 4.8-5.9 No n Diabetic = Hemoglobin A1c) 4.8-5.9%Di abetic <7.0% Valproic Acid [id number] 08:30:39 Test Item Value Reference Range Interpretation Comments Valproic Acid Level (test code 120.3 ug/mL(g) 50.0-100.0 H = Valproic Acid Level) RPR [id number] 06:07:29 Test Item Value Reference Range Interpretation [...] = 04.27.2020 N Expiration Dt) Thyroid Stimulating [id number] 02:34:05 Test Item Value Reference Range Interpretation Comments TSH (test code = TSH) 1.290 mIU/mL 0.270-4.200 Lipid [id number] 02:16:21 Test Item Value Reference Range Interpretation Comments Cholesterol Total 127 mg/dL 0-200 RISK OF HE ART (test code = DISEASEPublishe d by Cholesterol Total) [place] [employer] Dottie lyte Optimal Borderl ine [...] LDL/HDL Ratio=L DL Calc/HDL Chol Comprehensive Metabolic [id number] 12:18:35 Test Item Value Reference Range Interpretation [...] A/G 2.0 ratio N Ratio) Comprehensive Metabolic [id number] 12:18:35 Test Item Value Reference Range Interpretation [...] the National Kid[employer] Foundation, http://nkdep.ni h.gov Alcohol [id number] 12:18:35 Test Item Value Reference Range Interpretation Comments Ethanol Level (test <0.00 g/dL 0.00-0.01 Intoxica lázaro 0.080 g/dL code = Ethanol or more Level) Ethanol Inst (test <0 N code = Ethanol Inst) Comprehensive Metabolic [id number] 12:18:35 Test Item Value Reference Range Interpretation [...] Cannabinoid Screen Ur) Urinalysis with Culture, if [id number] 11:17:21 Test Item Value Reference Range Interpretation [...] Micro Ind?) rule GL_SJM_UA_MICRO _IN D Automated [id number] 11:14:20 Test Item Value Reference Range Interpretation Comments Neutro Auto (test code = Neutro 73.7 % 36.0-70.0 H Auto) Lymph Auto (test code = Lymph Auto) 18.8 % 12.0-44.0 Summers Auto (test code = Summers Auto) 5.0 % 0.0-11.0 Eos, Auto (test code = Eos, Auto) 1.4 % 0.0-7.0 Basophil Auto (test code = Basophil 0.7 % 0.0-2.0 Auto) Neutro Absolute (test code = Neutro 6.3 x10 1.6-7.4 Absolute) Lymph Absolute (test code = Lymph 1.61 x10 .50-4.60 Absolute) Summers Absolute (test code = Summers .43 x10 .00-1.20 Absolute) Eos Absolute (test code = Eos 0.12 x10 0.00-0.74 Absolute) Baso Absolute (test code = Baso 0.06 x10 0.00-0.21 Absolute) IG [id number] 11:14:20 Test Item Value Reference Range Interpretation Comments IG (test code = IG) 0.4 % 0.0-5.0 IG Abs (test code = IG Abs) 0 x10 N Complete Blood Count with [id number] 11:14:19 Test Item Value Reference Range Interpretation [...]
[2021-10-06 22:44] LABS: Absolute Lymphocytes (CBC) 2.7 K/uL (0.7-4.9); Hematocrit 41.6 % (39.6-49.0); Lymphocytes % 31.1 % (15.3-44.8); MPV 9.6 fL (7.6-11.3)
[2021-10-06 22:45] LABS: Barbiturates NEGATIVE (NEGATIVE); Benzodiazepines NEGATIVE (NEGATIVE); Cocaine NEGATIVE (NEGATIVE); METHAMPHETAM NEGATIVE (NEGATIVE); Methadone NEGATIVE (NEGATIVE); Opiates NEGATIVE (NEGATIVE); Phencyclidine NEGATIVE (NEGATIVE); THC Cannibis NEGATIVE (NEGATIVE)
[2021-10-06 22:48] LABS: Urine Blood Negative (Negative); Urine Glucose Negative (Negative); Urine Protein Negative (Negative); Urine Specific Gravity 1.015 (1.005-1.030)
[2021-10-06 22:50] LABS: Protime INR 0.94
[2021-10-06 23:02] LABS: ALT/SGPT 111 U/L (12-78); AST/SGOT 108 U/L (15-37); Albumin 4.1 g/dL (3.4-5.0); Alkaline Phosphatase 101 U/L (45-117); BUN Blood Urea Nitrogen 16 mg/dL (7-18); Bicarbonate 28 mmol/L (21-32); Bilirubin Total 0.3 mg/dL (0.2-1.0); Glucose Level 105 mg/dL (74-106); Protein, Total 7.2 g/dL (6.4-8.2); Sodium Level 140 mmol/L (136-145)
[2021-10-06 23:03] LABS: Bilirubin Direct < 0.1 mg/dL (0-0.2)
[2021-10-07 01:25] LABS: SARS-COV-2 RT PCR NEGATIVE (NEGATIVE)
--- NOTE | 2021-10-07 01:46 | EDPHYS ---
Physician Documentation [facility] Name: Carlos Walker Age: 30 yrs Sex: Male : 1990 Arrival Date: 10/06/2021 Time: 20:09 Bed 19 Private MD: ED Physician Raymon Avendano HPI: 10/06 21:05 This 30 yrs old Male presents to ER via Ambulatory with complaints of Suicidal pm1 Ideation, Hallucinations. 21:05 The patient presents to the emergency department with psychosis, has experienced visual pm1 hallucinations, Seeing crocodiles, suicide ideation, and the patient has a plan, to cut oneself and bleed. Onset: The symptoms/episode began/occurred 3 day(s) ago. Past psychiatric history: Prior diagnosis: schizophrenia, Psychiatric medications include: Patient currently not taking any of his prescribed medications, Primary psychiatric physician: the patient does not have a primary psychiatric physician, the patient has a previous inpatient psychiatric history, 3 week(s) ago, at [place], [place]. Associated signs and symptoms: Pertinent negatives: abdominal pain, chest pain, headache, shortness of breath. Severity of symptoms: in the emergency department the symptoms are worse. The patient has experienced similar episodes in the past, multiple times. The patient has not recently seen a physician. Historical: - Allergies: 21:03 Abilify; ll3 21:03 Promethazine; ll3 - Home Meds: 22:58 divalproex oral [Active]; olanzapine oral [Active]; Hydroxyzine Oral [Active]; junior paroxetine oral [Active]; - PMHx: 21:03 Schizophrenia; ll3 - Immunization history:: Client reports receiving the 2nd dose of the Covid vaccine. - Social history:: Smoking status: Patient reports the use of cigarette tobacco products, smokes one pack cigarettes per day. ROS: 21:05 Constitutional: Negative for fever, chills, and weight loss, Cardiovascular: Negative pm1 for chest pain, palpitations, and edema, Respiratory: Negative for shortness of breath, cough, wheezing, and pleuritic chest pain, Abdomen/GI: Negative for abdominal pain, nausea, vomiting, diarrhea, and constipation, MS/Extremity: Negative for injury and deformity, Skin: Negative for injury, rash, and discoloration, Neuro: Negative for headache, weakness, numbness, tingling, and seizure. 21:05 Psych: Positive for suicidal ideation. 21:05 All other systems are negative. Exam: 21:05 Constitutional: This is a well developed, well nourished patient who is awake, alert, pm1 and in no acute distress. Head/Face: Normocephalic, atraumatic. 21:05 Back: No spinal tenderness. No costovertebral tenderness. Full range of motion. Skin: Warm, dry with normal turgor. Normal color with no rashes, no lesions, and no evidence of cellulitis. MS/ Extremity: Pulses equal, no cyanosis. Neurovascular intact. Full, normal range of motion. 21:05 Eyes: Exam is negative for acute changes, Extraocular movements: intact throughout, Conjunctiva: no acute changes, no injection. 21:05 ENT: Exam is negative for acute changes, Mouth: no acute changes, Lips: normal, moist, Oral mucosa: normal, pink and intact, moist. 21:05 Cardiovascular: Exam negative for acute changes, Rate: normal, Rhythm: regular, Pulses: no pulse deficits are appreciated. 21:05 Respiratory: Exam negative for acute changes, respiratory distress, shortness of breath. 21:05 Abdomen/GI: Exam negative for acute changes, Palpation: abdomen is soft and non-tender, in all quadrants. 21:05 Neuro: Exam negative for acute changes, Orientation: is normal, Mentation: is normal, Motor: is normal, moves all fours. Vital Signs: 20:58 BP 136 / 97; Pulse 90; Resp 18; Temp 98.3(TE); Pulse Ox 99% on R/A; Weight 77.11 kg ll3 (R); Height 5 ft. 8 in. (172.72 cm) (R); 10/07 02:22 BP 112 / 68; Pulse 75; Resp 18; Temp 98.5; Pulse Ox 99% on R/A; Pain 0/10; junior 08:00 BP 122 / 86; Pulse 72; Resp 18 S; Temp 97.9(TE); Pulse Ox 97% on R/A; aa5 13:00 BP 128 / 84; Pulse 76; Resp 16 S; Temp 97.8(TE); Pulse Ox 99% on R/A; aa5 18:10 BP 117 / 88; Pulse 71; Resp 16 S; Temp 98.1(TE); Pulse Ox 96% on R/A; aa5 21:47 BP 118 / 78; Pulse 78; Resp 16; Temp 98.5; Pulse Ox 100% on R/A; Pain 0/10; juinor 23:00 BP 124 / 72; Pulse 72; Resp 16; Pulse Ox 100% on R/A; Pain 0/10; junior 04/13 05:43 BP 122 / 72; Pulse 68; Resp 16; Temp 98.5; Pulse Ox 100% ; Pain 0/10; junior 07:30 BP 118 / 76; Pulse 80; Resp 18; Temp 98.0; Pulse Ox 99% on R/A; ph 19:49 BP 130 / 80 LA Supine (auto/reg); Pulse 69 MON; Resp 19 S; Temp 96.0(O); Pulse Ox 97% ag7 on R/A; Pain 0/10; 10/06 20:58 Body Mass Index 25.85 (77.11 kg, 172.72 cm) ll3 MDM: 10/06 21:09 Data reviewed: vital signs. Data interpreted: Pulse oximetry: on room air is 99 %. pm1 Interpretation: normal. 21:13 Patient medically screened. pm1 10/07 01:40 Differential diagnosis: drug withdrawal. acute psychotic break, depression, psychosis mh7 secondary to non-compliance. Counseling: I had a detailed discussion with the patient and/or guardian regarding: the historical points, exam findings, and any diagnostic results supporting the discharge/admit diagnosis, lab results, the need to transfer to another facility, [facility] does not immediately have the required specialist. Response to treatment: There is no appreciated change of the patient's symptoms at this time. 10/09 05:36 ED course: Patient has been resting comfortably all evening and has not required any kdr further intervention we are still waiting for a facility to accept the patient. 10/06 21:04 Order name: Acetaminophen; Complete Time: 23:19 pm1 10/06 21:04 Order name: Basic Metabolic Panel; Complete Time: 23:19 pm1 10/06 21:04 Order name: CBC with Diff; Complete Time: 23:00 pm1 10/06 21:04 Order name: ETOH Level; Complete Time: 23:19 pm1 10/06 21:04 Order name: Hepatic Function; Complete Time: 23:19 pm1 04/11 21:04 Order name: PT-INR; Complete Time: 23:00 pm1 10/06 21:04 Order name: Ptt, Activated; Complete Time: 23:00 pm1 10/06 21:04 Order name: Salicylate; Complete Time: 23:19 pm1 10/06 21:04 Order name: Urine Drug Screen; Complete Time: 23:00 pm1 10/06 22:49 Order name: Urine Dipstick-Ancillary; Complete Time: 23:00 EDMS 10/07 00:14 Order name: COVID-19/FLU A+B (Document "Date of Onset" if Symptomatic); Complete Time: bb 01:36 10/06 21:04 Order name: EKG; Complete Time: 21:05 pm1 10/06 21:04 Order name: EKG - Nurse/Tech; Complete Time: 22:34 pm1 10/06 21:04 Order name: IV Saline Lock; Complete Time: 22:34 pm1 10/06 21:04 Order name: Labs collected and sent; Complete Time: 22:34 pm1 10/07 07:18 Order name: Diet Regular; Complete Time: 07:18 aa5 10/07 11:23 Order name: Diet Finger Food; Complete Time: 11:23 bd 10/07 11:30 Order name: Diet Finger Food; Complete Time: 11:31 aa5 10/07 17:12 Order name: Diet Finger Food; Complete Time: 17:13 dw3 10/08 07:10 Order name: Diet Finger Food; Complete Time: 07:10 bd 10/08 12:28 Order name: Diet Finger Food; Complete Time: 12:29 bd 10/08 15:22 Order name: Diet Finger Food; Complete Time: 15:22 bd 10/09 07:18 Order name: Diet Finger Food; Complete Time: 07:18 ph 10/06 21:04 Order name: Suicide Precautions; Complete Time: 22:41 pm1 10/06 21:04 Order name: Suicide Screening ([place]); Complete Time: 22:41 pm1 10/06 21:04 Order name: Urine Dipstick-Ancillary (obtain specimen); Complete Time: 23:55 pm1 Administered Medications: 10/07 18:45 Drug: Nicoderm CQ Patch 21 mg/24 hr 1 patches {Note: right arm.} Route: Transdermal; aa5 Site: anterior chest wall; 10/08 18:34 Drug: Nicotine Patch 21 mg/24 hr 1 patches {Note: placed to ALISIA.} Route: Transdermal; Site: affected area; 10/09 09:11 CANCELLED (Duplicate Order): ZyPREXA (OLANZapine) 20 mg PO once turcios 09:17 Drug: hydrOXYzine 50 mg Route: PO; turcios 09:17 Follow up: Response: No adverse reaction turcios 09:17 Drug: Depakote (divalproex) 500 mg Route: PO; turcios 09:17 Follow up: Response: No adverse reaction turcios 09:37 Drug: ZyPREXA (OLANZapine) 20 mg Route: PO; turcios 09:37 Follow up: Response: No adverse reaction turcios 09:37 Drug: PaxiL 20 mg Route: PO; turcios 09:37 Follow up: Response: No adverse reaction turcios Disposition: 10/07 01:45 Co-signature as Attending Physician, Bryan Hernandez MD. 7 Disposition Summary: 10/09/21 09:14 Discharge Ordered Location: Home [place] Problem: new(10/09/21 09:14) [place] Symptoms: have improved(10/09/21 09:14) [place] Condition: Stable(10/09/21 09:14) [place] Diagnosis - Schizophrenia, unspecified [place] - Visual hallucinations [place] Followup: [place] - With: Private Physician - When: 2 - 3 days - Reason: Recheck today's complaints, Continuance of care, Re-evaluation by your physician Discharge Instructions: - Discharge Summary Sheet [place] - Schizophrenia gre[place] - Supporting Someone With Schizophrenia gre[place] - Managing Schizophrenia [place] Forms: - Medication Reconciliation Form [place] - Thank You Letter [place] - Antibiotic Education gre[facility] - Prescription Opioid Use gre[facility] Signatures: Dispatcher [employer] EDRaymon Connolly MD MD cha Rittger, Kevin, MD MD kdr Calderon, Audri RN RN aa5 Ebony Elizabeth RN RN ph Stone Mann, NILE SOYBEAN GROWER pm1 Bryan Hernandez MD MD 7 Rebeca Dillon RN RN 3 Mia Edwards RN RN junior Rose MaryStagerRochelle RN RN turcios Corrections: (The following items were deleted from the chart) 10/06 23:01 22:58 PMHx: manic bipolar disorder; junior pacheco 10/09 09:11 09:11 ZyPREXA (OLANZapine) 20 mg PO once ordered. turcios turcios :10/07 01:45 Dr. Psych [address] 10/09 08:10/07 01:45 Psych Facility [address] 10/09 08:10/07 01:45 Higher level of care [address] 10/09 08:10/07 01:[address] 10/09 08:10/07 01:45 an acute exacerbation [address] 10/09 08:10/07 01:45 are unchanged [address] 10/09 08:10/07 01:45 Major Depression, Suicidal Ideation [address] 10/09 09:10/07 01:[address]
--- NOTE | 2021-10-07 01:46 | ER ---
Nurse's Notes [facility] Name: Carlos Walker Age: 30 yrs Sex: Male : 1990 Arrival Date: 10/06/2021 Time: 20:09 Bed 19 Private MD: Diagnosis: Schizophrenia, unspecified;Visual hallucinations Presentation: 10/06 20:58 Chief complaint: Patient states: States I am hallucinating, I am see crocodiles and ll3 snakes, it started 2 days ago, I am homicidal and suicidal, I have been having a hard time sleeping, I take 2 days for me to be able to go to sleep, states these medicines aren't working. Coronavirus screen: At this time, the client does not indicate any symptoms associated with coronavirus-19. Ebola Screen: No symptoms or risks identified at this time. Initial Sepsis Screen: Does the patient meet any 2 criteria? No. Patient's initial sepsis screen is negative. Does the patient have a suspected source of infection? No. Patient's initial sepsis screen is negative. Risk Assessment: Do you want to hurt yourself or someone else? Patient reports desire/thoughts of hurting themselves or someone else. Provider notified. Onset of symptoms was October 03, 2021. 20:58 Method Of Arrival: Ambulatory ll3 20:58 Acuity: EDD 2 sm5 Triage Assessment: 21:03 General: Appears uncomfortable, Behavior is cooperative, anxious, States I feel like ll3 there is a snake living inside of me, states stopped taking medicine 3 days ago because they are not working.. Pain: Denies pain. EENT:. Neuro: Level of Consciousness is awake, alert, obeys commands, Oriented to person, place, time, situation. Historical: - Allergies: 21:03 Abilify; ll3 21:03 Promethazine; ll3 - Home Meds: 22:58 divalproex oral [Active]; olanzapine oral [Active]; Hydroxyzine Oral [Active]; junior paroxetine oral [Active]; - PMHx: 21:03 Schizophrenia; ll3 - Immunization history:: Client reports receiving the 2nd dose of the Covid vaccine. - Social history:: Smoking status: Patient reports the use of cigarette tobacco products, smokes one pack cigarettes per day. Screenin:52 Abuse screen: Intervention for positive screen: [place] . Nutritional screening: No junior deficits noted. Tuberculosis screening: No symptoms or risk factors identified. Fall Risk None identified. Assessment: 21:59 Reassessment: The pt was transferred from room 16, to room 19, as the tech is sitting junior with the pt in 20. The tech is now sitting with both this pt and the one in the room next door. I asked for assistance to have the pt remove his clothing, but it looks like it will be myself and the tech. 22:09 Reassessment: The pt was not placed in paper scrubs, as they aren't available. Another junior nurse is checking with mesa sup. 22:54 Reassessment: Per the pt's report, he came from"[facility]", in [place]. Pastor junior Rincon [phone], left a note with the pt, when they dropped him off. 23:03 Reassessment: The pt is being cooperative and he tolerated his sandwich, juice and junior water. He told me that he was "just sent out from that [facility] 2 weeks ago". He has been at [facility], since his dc. 23:56 Reassessment: The pt is sitting on his bed, staring at the nurse's station. He is being junior very cooperative. 10/07 00:06 Reassessment: The pt's shirt, pants and shoes were bagged and he was placed in a cloth junior gown, as no paper scrubs are available. His medication and the contact info for Sergey were also placed in the bag. The pt is compliant and told me that he "can't go home" because his mother "said that's enough". He states he is now living at the [facility]. 00:14 Reassessment: spoke to [facility] to request mental health evaluation. Awaiting return bb call from screener. 00:29 Reassessment: The pt sits on the end of the stretcher, staring at the nurses. Thus far, junior he's been cooperative. He is now stating that he's "ready to go", but we assured him that the MD would let him know, when that would happen. He is easily redirected and cooperative. 01:42 Reassessment: pt spoke to [employer] rep who recommends inpatient care. bb 02:44 Reassessment: The pt is sleeping. junior 05:30 Reassessment: The pt is sleeping. He has been cooperative and calm. He has spoken to junior the counselor with [facility] and we are awaiting placement. 06:41 Reassessment: The pt is sleeping. junior 07:00 General: Appears comfortable, Behavior is calm, cooperative. Pain: Denies pain. Neuro: aa5 Level of Consciousness is awake, alert, obeys commands, Oriented to person, place, time, situation. Cardiovascular: Heart tones S1 S2 present Rhythm is regular. Respiratory: Airway is patent Respiratory effort is even, unlabored, Respiratory pattern is regular, symmetrical, Breath sounds are clear bilaterally. GI: Abdomen is flat, non-distended, Bowel sounds present X 4 quads. Abd is soft and non tender X 4 quads. : voiding without complaints. EENT: No signs and/or symptoms were reported regarding the EENT system. Derm: Skin is pink, warm \\T\\ dry. Musculoskeletal: Range of motion: intact in all extremities. 07:00 Reassessment: See paper chart for safety checks. Sitter at bedside. . aa5 08:00 Reassessment: Patient is alert, oriented x 3, equal unlabored respirations, skin aa5 warm/dry/pink. Pt ate 100% of breakfast, tolerated well. . 09:00 Reassessment: Pt sitting up in bed resting. . aa5 10:00 Reassessment: Pt resting in bed with eyes closed, respirations even and unlabored. . aa5 11:00 Reassessment: Pt resting in bed with eyes closed, respirations even and unlabored.. aa5 12:00 Reassessment: Patient is alert, oriented x 3, equal unlabored respirations, skin aa5 warm/dry/pink. 13:00 Reassessment: Patient is alert, oriented x 3, equal unlabored respirations, skin aa5 warm/dry/pink. Pt ate 100% of lunch, pt tolerated well. . 14:00 Reassessment: Patient is alert, oriented x 3, equal unlabored respirations, skin aa5 warm/dry/pink. 14:48 Reassessment: Pt using phone to call family at nurse's station. . aa5 15:00 Reassessment: Pt awake, sitting up in bed. Sitter remains at bedside. . aa5 16:00 Reassessment: Pt resting in bed with eyes closed, respirations even and unlabored, skin aa5 is pink/warm/dry.. 17:00 Reassessment: Pt resting in bed with eyes closed, respirations even and unlabored, skin aa5 is pink/warm/dry. . 18:00 Reassessment: Pt served dinner tray. . aa5 18:04 Reassessment: Awaiting acceptance to psych facility for transfer. . aa5 18:23 Reassessment: Patient is alert, oriented x 3, equal unlabored respirations, skin aa5 warm/dry/pink. Pt reports he wants to smoke, order received for nicotine patch. . 19:00 Reassessment: Patient is alert, oriented x 3, equal unlabored respirations, skin aa5 warm/dry/pink. 19:56 Reassessment: The pt is being cooperative and calm. He remains AAOx3 and denies any junior hallucinations, HI or SI. 10/08 01:00 Reassessment: The pt is resting and being very cooperative with staff. junior 05:32 Reassessment: The pt ambulated to the bathroom and voided. He remains pleasant and junior cooperative. 07:30 Reassessment: Patient appears in no apparent distress at this time. Pt asleep w/ equal ph and unlabored respirations. 09:46 Reassessment: Patient appears in no apparent distress at this time. Patient and/or ph family updated on plan of care and expected duration. Pain level reassessed. Patient is alert, oriented x 3, equal unlabored respirations, skin warm/dry/pink. Pt awake, calm but appears restless, sits in bed for a few minutes and then gets up and paces momentarily at bedside, noted to be mumbling to himself periodically but responds appropriately when speaking to staff. 12:37 Reassessment: Patient appears in no apparent distress at this time. Patient and/or ph family updated on plan of care and expected duration. Pain level reassessed. Pt up pacing at bedside, states, " I want get out of here. How can I get out of here?" Informed pt that we were still attempting to find a bed for him at a facility in [place] and that I would have the ER doctor come in to speak with him. 13:30 Reassessment: Patient appears in no apparent distress at this time. Patient and/or ph family updated on plan of care and expected duration. Pain level reassessed. Pt sitting in bed, talking to himself, awaiting transfer. 14:30 Reassessment: Patient appears in no apparent distress at this time. No changes from ph previously documented assessment. Patient and/or family updated on plan of care and expected duration. Pain level reassessed. 15:37 Reassessment: Spoke with [facility] who states that patient will not have an ss available bed today at [facility] but WILL tomorrow. Pt has been updated. 16:30 Reassessment: Patient appears in no apparent distress at this time. Patient and/or ph family updated on plan of care and expected duration. Pain level reassessed. Pt pacing around room, talking to himself loudly, appears agitated, " Let go bro, I'm trying to not lose it right now. I'm trying not to slice you." No one present in room w/ pt at this time. 17:30 Reassessment: Patient appears in no apparent distress at this time. No changes from ph previously documented assessment. Pt still talking to himself, new nicotine patch given and offered pt to ask DR for something to help him relax, pt states, " No I don't want to go to sleep.". 18:40 Reassessment: Patient appears in no apparent distress at this time. Pt requesting to ph take home medications, ERP notified and said that's okay, belongings brought by security and home meds x 3 given. hydroxyzine 50 mg, divalproex 500 mg, and olanzapine 10 mg. 19:05 Reassessment: Belongings back w/ security, including medications. ph 19:34 Reassessment: No changes from previously documented assessment. Patient and/or family ag7 updated on plan of care and expected duration. Pain level reassessed. Patient is alert, oriented x 3, equal unlabored respirations, skin warm/dry/pink. Patient denies suicidal and homicide ideation, sitter at bedside Patient denies pain at this time. 20:34 Reassessment: No changes from previously documented assessment. Patient and/or family ag7 updated on plan of care and expected duration. Pain level reassessed. Patient is alert, oriented x 3, equal unlabored respirations, skin warm/dry/pink. Patient denies pain at this time. Patient states symptoms have improved. 21:36 Reassessment: No changes from previously documented assessment. Patient and/or family ag7 updated on plan of care and expected duration. Pain level reassessed. Patient is alert, oriented x 3, equal unlabored respirations, skin warm/dry/pink. Patient resting in bed with eyes closed. sitter at bedside. 22:50 Reassessment: No changes from previously documented assessment. Patient and/or family ag7 updated on plan of care and expected duration. Pain level reassessed. Patient is alert, oriented x 3, equal unlabored respirations, skin warm/dry/pink. Patient denies pain at this time. 23:50 Reassessment: No changes from previously documented assessment. Patient and/or family ag7 updated on plan of care and expected duration. Pain level reassessed. Patient is alert, oriented x 3, equal unlabored respirations, skin warm/dry/pink. Patient denies pain at this time. 10/09 00:56 Reassessment: No changes from previously documented assessment. Patient and/or family ag7 updated on plan of care and expected duration. Pain level reassessed. Patient is alert, oriented x 3, equal unlabored respirations, skin warm/dry/pink. Patient denies pain at this time. 01:00 Reassessment: No changes from previously documented assessment. Patient and/or family ag7 updated on plan of care and expected duration. Pain level reassessed. sitter at bedside. 01:57 Reassessment: No changes from previously documented assessment. Patient and/or family ag7 updated on plan of care and expected duration. Pain level reassessed. 02:57 Reassessment: Patient and/or family updated on plan of care and expected duration. Pain ag7 level reassessed. 03:57 Reassessment: Patient and/or family updated on plan of care and expected duration. Pain ag7 level reassessed. sitter at bedside. 05:04 Reassessment: Patient and/or family updated on plan of care and expected duration. Pain ag7 level reassessed. Patient resting with eyes closed, sitter monitoring. 05:58 Reassessment: Patient and/or family updated on plan of care and expected duration. Pain ag7 level reassessed. Patient continue to rest with eyes closed, sitter continue to monitor patient. 09:15 Reassessment: called Mr. Rincon, co-complex care nurse practitioner of [facility] to see if he can apple picker iw Mr. Walker. Psych: 10/06 22:55 [place] Suicide Severity Screening: In the past month, have you wished you were junior or wished you could go to sleep and not wake up? Patient responds "yes." Based off the client's responses additional C-SSRS screening is required. "In the past month, have you actually had any thoughts of killing yourself?" Patient responds "yes." Based off the client's response additional [place] suicide severity screening questions to be further documented on paper forms. Subjective: Patient's mood is sad, Delusions are denied, Hallucinations are "snakes and crocodiles" Having thoughts of homicide. Denies plan. Objective: Patient is cooperative, Speech is normal, Affect is blunted. Interventions: Removed personal items and placed in bag. Patient placed in hospital gown. Urine collected and sent for urine drug test. Belonging list filled out. Safety Checks: Personal items have been removed. Door is open. The tech is sitting with both this pt and the one next door. Pt denies substance abuse. Commitment: Patient will be a voluntary commitment. 22:58 [place] Suicide Severity Screening: "In your lifetime, have you ever done anything, junior started to do anything, or prepared to do anything to end your life?" Patient responds "yes." Patient reports suicidal intent within 3 past months. 10/07 07:00 [place] Suicide Severity Screening: In the past month, have you wished you were aa5 or wished you could go to sleep and not wake up? Patient responds "yes." "In the past month, have you actually had any thoughts of killing yourself?" Patient responds "yes." "In your lifetime, have you ever done anything, started to do anything, or prepared to do anything to end your life?" Patient responds "yes." Patient reports suicidal intent within 3 past months. Patient states "I got a knife before but didn't follow through". Subjective: Patient's mood is sad, Delusions are denied, Hallucinations are visual, Having thoughts of suicide with no plan, denies homicidal thoughts at this time. Objective: Patient is cooperative, Speech is normal, Affect is flat. Interventions: Searched person for dangerous items. Verified pt's belongings remain with security. Safety Checks: Personal items have been removed. Door is open. Sitter at bedside. 07:00 Patient uses methamphetamines reports last use was 1 week ago . Commitment: Patient marily will be a voluntary commitment. Vital Signs: 10/06 20:58 BP 136 / 97; Pulse 90; Resp 18; Temp 98.3(TE); Pulse Ox 99% on R/A; Weight 77.11 kg ll3 (R); Height 5 ft. 8 in. (172.72 cm) (R); 10/07 02:22 BP 112 / 68; Pulse 75; Resp 18; Temp 98.5; Pulse Ox 99% on R/A; Pain 0/10; junior 08:00 BP 122 / 86; Pulse 72; Resp 18 S; Temp 97.9(TE); Pulse Ox 97% on R/A; aa5 13:00 BP 128 / 84; Pulse 76; Resp 16 S; Temp 97.8(TE); Pulse Ox 99% on R/A; aa5 18:10 BP 117 / 88; Pulse 71; Resp 16 S; Temp 98.1(TE); Pulse Ox 96% on R/A; aa5 21:47 BP 118 / 78; Pulse 78; Resp 16; Temp 98.5; Pulse Ox 100% on R/A; Pain 0/10; junior 23:00 BP 124 / 72; Pulse 72; Resp 16; Pulse Ox 100% on R/A; Pain 0/10; junior 13 05:43 BP 122 / 72; Pulse 68; Resp 16; Temp 98.5; Pulse Ox 100% ; Pain 0/10; junior 07:30 BP 118 / 76; Pulse 80; Resp 18; Temp 98.0; Pulse Ox 99% on R/A; ph 19:49 BP 130 / 80 LA Supine (auto/reg); Pulse 69 MON; Resp 19 S; Temp 96.0(O); Pulse Ox 97% ag7 on R/A; Pain 0/10; 10/06 20:58 Body Mass Index 25.85 (77.11 kg, 172.72 cm) ll3 ED Course: 10/06 20:09 Patient arrived in ED. bp1 21:03 Triage completed. ll3 21:03 Arm band placed on left wrist. ll3 21:31 Bryan Henrandez MD is Attending Physician. mh7 21:59 Mia Edwards, RN is Primary Nurse. junior 22:34 Inserted saline lock: 20 gauge in right antecubital area, using aseptic technique. oe Blood collected. 22:41 Acetaminophen Sent. junior 22:41 Basic Metabolic Panel Sent. junior 22:41 CBC with Diff Sent. junior 22:42 ETOH Level Sent. junior 22:42 Hepatic Function Sent. junior 22:42 PT-INR Sent. junior 22:42 Ptt, Activated Sent. junior 22:42 Salicylate Sent. junior 22:42 Urine Drug Screen Sent. junior 22:52 Placed in gown. Bed in low position. SI/HI pt so the tech is sitting with both this pt junior and another. 23:01 No provider procedures requiring assistance completed. junior 04/12 00:41 COVID-19/FLU A+B (Document "Date of Onset" if Symptomatic) Sent. junior 07:16 Attending Physician role handed off by Bryan Hernandez MD greyson 07:16 Raymon Avendano MD is Attending Physician. greyson 10:10 faxed chart to [facility] and [facility], confirmed with [facility] that chart was bd received, pt will be on wait list for [facility], per [facility]. 19:13 Report given to Mia Edwards RN. aa5 10/08 07:25 Primary Nurse role handed off by Mia Edwards, RN bd 07:30 Ebony Elizabeth, RN is Primary Nurse. ph 13:17 refaxed chart to [facility]. bd 15:05 faxed chart to [facility]. bd 19:08 Attending Physician role handed off by Raymon Avendano MD kdr 19:08 Oscar Whittington MD is Attending Physician. kdr 10/09 07:05 Appears to be sleeping. Safety Checks: Personal items have been removed. Sitter present turcios at this time. recvd report from night nurse Sunshine. pt is sleeping with sitter at bedside. 07:24 Attending Physician role handed off by Oscar Whittington MD greyson 07:24 Raymon Avendano MD is Attending Physician. greyson 09:02 Appears agitated. Appears angry. Pt. is pacing. Appears restless. pt is agitated turcios wanting to leave. code cardenas was called provider is aware pt not wanting to stay. pt pending transfer. 10:22 IV discontinued, intact, Pressure dressing applied. turcios Administered Medications: 10/07 18:45 Drug: Nicoderm CQ Patch 21 mg/24 hr 1 patches {Note: right arm.} Route: Transdermal; aa5 Site: anterior chest wall; 10/08 18:34 Drug: Nicotine Patch 21 mg/24 hr 1 patches {Note: placed to ALISIA.} Route: Transdermal; ph Site: affected area; 10/09 09:11 CANCELLED (Duplicate Order): ZyPREXA (OLANZapine) 20 mg PO once turcios 09:17 Drug: hydrOXYzine 50 mg Route: PO; turcios 09:17 Follow up: Response: No adverse reaction turcios 09:17 Drug: Depakote (divalproex) 500 mg Route: PO; turcios 09:17 Follow up: Response: No adverse reaction turcios 09:37 Drug: ZyPREXA (OLANZapine) 20 mg Route: PO; turcios 09:37 Follow up: Response: No adverse reaction turcios 09:37 Drug: PaxiL 20 mg Route: PO; turcios 09:37 Follow up: Response: No adverse reaction turcios Output: 10/07 08:00 Urine: 200ml; Total: 200ml. aa5 14:00 Urine: 200ml; Total: 400ml. aa5 Outcome: 10/06 22:57 Condition: stable junior 10/07 01:45 ER care complete, transfer ordered by . [facility] 10/09 09:14 Discharge ordered by . [facility] 10:[address] 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 10:22 Patient left the ED. turcios Signatures: Maureen Saleh Corey, MD MD cha Rittger, Kevin, MD MD kdr Ballard, Brenda RN Clau Martines RN RN Ariella Fish RN RN 5 Marley Harris RN RN ss Ebony Elizabeth RN RN ph Stone Mann, NILE [employer]IT DESIGNER pm1 Miguel Booth Brittany bp1 Holmes, Maurice, MD MD [facility] Rebeca Dillon RN RN 3 Holly Gottlieb RN RN 5 O'Layton, Mia, Rochelle Morales RN, RN RN ha Glenn, Angela, RN RN ag7 Corrections: (The following items were deleted from the chart) 10/06 21:35 20:58 Acuity: EDD 3 ll3 sm5 23:01 22:58 PMHx: manic bipolar disorder; junior pacheco 10/07 00:14 00:12 Reassessment: bb bb 06:42 06:41 Reassessment: The pt junior junior 10/08 19:35 19:34 Reassessment: No changes from previously documented assessment. Patient and/or ag7 family updated on plan of care and expected duration. Pain level reassessed. Patient is alert, oriented x 3, equal unlabored respirations, skin warm/dry/pink. Patient denies pain at this time. ag7 21:37 19:34 Reassessment: No changes from previously documented assessment. Patient and/or ag7 family updated on plan of care and expected duration. Pain level reassessed. Patient is alert, oriented x 3, equal unlabored respirations, skin warm/dry/pink. Patient denies suicidal and homicide ideation Patient denies pain at this time. ag7 10/09 04:21 01:00 Reassessment: No changes from previously documented assessment. Patient and/or ag7 family updated on plan of care and expected duration. Pain level reassessed. Patient is alert, oriented x 3, equal unlabored respirations, skin warm/dry/pink. sitter at bedside ag7 04:22 01:57 Reassessment: No changes from previously documented assessment. Patient and/or ag7 family updated on plan of care and expected duration. Pain level reassessed. Patient is alert, oriented x 3, equal unlabored respirations, skin warm/dry/pink. ag7 04:22 03:57 Reassessment: Patient and/or family updated on plan of care and expected ag7 duration. Pain level reassessed. Patient is alert, oriented x 3, equal unlabored respirations, skin warm/dry/pink. sitter at bedside ag7 04:22 02:57 Reassessment: Patient and/or family updated on plan of care and expected ag7 duration. Pain level reassessed. Patient is alert, oriented x 3, equal unlabored respirations, skin warm/dry/pink. ag7
[2021-10-07] MEDS ORDERED: NICOTINE 21 MG/PAT TD ONE (18:41)
--- NOTE | 2021-10-08 11:03 | EKG ---
Test Date: 2021-10-06 Test Time: 22:20:29 Leaf Tinner: KELLI MEASUREMENT RESULTS: Intervals: Rate: 79 SD: 142 QRSD: 94 QT: 384 QTc: 440 Mchenry: P: 65 SD: 142 QRS: 70 T: 26 INTERPRETIVE STATEMENTS: Normal sinus rhythm Incomplete right bundle branch block Borderline ECG Compared to ECG 12/29/2019 22:41:28 Sinus tachycardia no longer present Electronically Signed On 10-08-21 10:57:56 CDT by Ángel Maki
[2021-10-08] MEDS ORDERED: NICOTINE 21 MG/PAT TD ONE (18:17)
[2021-10-09] MEDS ORDERED: hydrOXYzine HCL 25 MG TAB ONE (09:18)
[2021-10-09] MEDS ORDERED: DIVALPROEX DR 250 MG TAB PO ONE (09:18)
[2021-10-09] MEDS ORDERED: OLANZapine 10 MG TABLET PO ONE (10:00)
[2021-10-09] MEDS ORDERED: PARoxetine HCL 10 MG TAB PO ONE (10:00)
[2021-10-09 13:53] VITALS: BP 130/80; TEMP 96; O2SAT 97
== END 2021-10-09 10:22 | disposition home or self-care (01) ==
LOC: ER 20:06
DX: R45.851 Suicidal ideations (principal); F20.9 Schizophrenia, unspecified; F17.210 Nicotine dependence, cigarettes, uncomplicated; Z88.8 Allergy status to other drugs, medicaments and biological substances; Z20.822 Contact with and (suspected) exposure to COVID-19
CPT/HCPCS: 36415; 80048; 80076; 80307; 80320; 80329; 81003; 85025; 85610; 85730; 93005; 99285

== ENCOUNTER 2021-10-12 19:04 | Emergency (ER) | payer SELFPAY ==
--- OUTSIDE RECORDS SUMMARY | 2021-10-12 19:09 | XMS REPORT | Continuity of Care Document ---
:1990 Author Organization [facility] t Address [address] [place] [address] Care Team Providers Name Role Phone Cipriano [...] Date Date Treatment Clinician Date Problem Problem [facility] S Health Allergies, Adverse Reactions, Alerts Allergy Allergy Status Severity Reaction(s) Onset Inactive Treating Comm ents Source Name Type Date Date Clinician prometha DA Active [place] 2020-0 [facility] zine 3-05 [place] 00:00: d 00 [facility] aripipra DA Active SV 2020-0 [facility] zole 3-05 [place] 00:00: d 00 [facility] prometha DA Active MO TREMORS 2020-0 [facility] zine 3-05 [place] 00:00: d 00 [facility] aripipra DA Active SV DYSTONIC 2020-0 [facility] zole REACTION 3-05 [place] 00:00: d 00 [facility] prometha Drug Active [facility] Abilify Drug Active [facility] prometha Drug Active [facility] Abilify Drug Active [facility] prometha Drug Active [facility] prometha Drug Active [facility] Abilify Drug Active [facility] Abilify Drug Active [facility] prometha Drug Active [facility] Abilify Drug Active [facility] prometha Drug Active [facility] Abilify Drug Active [facility] Social History Social Habit Start Date Stop Date Quantity Comments Source Sex Assigned At [birth year] Female [facility] 00:00:00 00:00:00 Smoking Status Start Date Stop Date Source Unknown if ever smoked [employer] Medications This patient has no known medications. [...] kg BP Diastolic 2020-08-03 15:36:00 81 mm[Hg] [employer] BP Systolic 2020-08-03 15:36:00 114 mm[Hg] [employer] Heart Rate 2020-08-03 15:36:00 69 /min [facility] Respiratory rate 2020-08-03 15:36:00 18 /min [employer] [facility] Body Temperature 2020-08-03 15:36:00 98.7 [degF] [employer] [facility] BP Diastolic 2020-08-03 15:10:00 81 mm[Hg] [facility] BP Systolic 2020-08-03 15:10:00 114 mm[Hg] [facility] Heart Rate 2020-08-03 15:10:00 69 /min [facility] Respiratory rate 2020-08-03 15:10:00 18 /min [facility] Body Temperature 2020-08-03 15:10:00 98.7 [degF] [facility] [employer] Procedures This patient has no known procedures. Encounters Start End Encounter Admission Attending Care Care Encounter Source Date/Time Date/Time Type Type Clinicians Facility Department ID 2021-04-20 Outpatient CAROLYNN PRADHAN [id number] [facility] 22:53:11 [id number] [facility] 2020-08-03 Inpatient CAROLYNN PRADHAN [id number] [facility] 15:06:00 [id number] [facility] 2019-09-01 Inpatient HCAPM KAYLEE [id number] [facility] 06:12:00 [facility] 2019-08-31 Inpatient HCAPM KAYLEE [id number] [facility] 19:06:00 [facility] 2020-08-03 2020-08-03 Departed BAYRON PRADHAN [id number] [facility] 15:24:00 15:37:[address] [facility] 2019-01-21 2019-01-31 Inpatient 1 [facility] PSY [id number] [facility] 10:32:00 13:54:00 [facility] 2018-11-01 2018-11-09 Inpatient 1 [facility] PSY [id number] [facility]. 14:32:00 13:51:00 [facility] Results Test Description Test Time Test Comments [...] Dose Date: 06/28/00 Dose Time: HEPATIC FUNCTION [id number] 15:01:00 Test Item Value Reference Range Interpretation [...] ALKP) Last Dose Date: 06/28/00 Dose Time: [id number] 15:01:00 Test Item Value Reference Range Interpretation Comments ACETAMINOPHEN (test code = ACET) < 2.0 mcG/ML 10.0-30.0 L Last Dose Date: 06/28/00 Dose Time: [id number] 15:01:00 Test Item Value Reference Range Interpretation Comments ALCOHOL (test code = ALC) < 3 MG/DL 0-10 N Last Dose Date: 06/28/00 Dose Time: [id number] 07:32:00 Test Item Value Reference Range Interpretation Comments SALICYLATE (test code = ISA) < 1.7 MG/DL 2.8-20.0 THER L BASIC METABOLIC [id number] 07:24:00 Test Item Value Reference Range Interpretation [...] Dose Date: 06/28/00 Dose Time: 0000HEPATIC FUNCTION [id number] 07:24:00 Test Item Value Reference Range Interpretation [...] ALKP) Last Dose Date: 06/28/00 Dose Time: [id number] 07:24:00 Test Item Value Reference Range Interpretation Comments ACETAMINOPHEN (test code = ACET) mcG/ML 10.0-30.0 Last Dose Date: 06/28/00 Dose Time: [id number] 07:24:00 Test Item Value Reference Range Interpretation [...] for culture: Suprapubic PainDRUGS OF ABUSE SCREEN [id number] 06:55:00 Test Item Value Reference Range Interpretation [...] culture: Suprapubic PainUA RFLX MICR CULT IF [id number] 06:44:00 Test Item Value Reference Range Interpretation [...] for culture: Suprapubic PainDRUGS OF ABUSE SCREEN [id number] 06:44:00 Test Item Value Reference Range Interpretation [...] culture: Suprapubic PainUA RFLX MICR CULT IF [id number] 06:43:00 Test Item Value Reference Range Interpretation [...] for culture: Suprapubic PainDRUGS OF ABUSE SCREEN [id number] 06:43:00 Test Item Value Reference Range Interpretation [...] CLEAN CATCHIndication for culture: Suprapubic PainCBC W/AUTO [id number] 06:40:00 Test Item Value Reference Range Interpretation [...] = NO DIFF/SCN CRITERIA MDIFF) CBC W/AUTO [id number] 21:39:00 Test Item Value Reference Range Interpretation [...] CONSISTA NT WITH AUTO DIFFERENTIAL. CBC W/AUTO [id number] 20:15:00 Test Item Value Reference Range Interpretation [...] code = DIFF/SCN CRITERIA MDIFF) COMPREHENSIVE METABOLIC [id number] 20:01:00 Test Item Value Reference Range Interpretation [...] N (test code = ALKP) Valproic Acid [id number] 08:10:30 Test Item Value Reference Range Interpretation Comments Valproic Acid Level (test code 94.1 ug/mL(g) 50.0-100.0 = Valproic Acid Level) Hemoglobin [id number] 09:40:02 Test Item Value Reference Range Interpretation Comments Hemoglobin A1c (test code 5.0 % 4.8-5.9 No n Diabetic = Hemoglobin A1c) 4.8-5.9%Di abetic <7.0% Valproic Acid [id number] 08:30:39 Test Item Value Reference Range Interpretation Comments Valproic Acid Level (test code 120.3 ug/mL(g) 50.0-100.0 H = Valproic Acid Level) RPR [id number] 06:07:29 Test Item Value Reference Range Interpretation [...] = 04.27.2020 N Expiration Dt) Thyroid Stimulating [id number] 02:34:05 Test Item Value Reference Range Interpretation Comments TSH (test code = TSH) 1.290 mIU/mL 0.270-4.200 Lipid [id number] 02:16:21 Test Item Value Reference Range Interpretation Comments Cholesterol Total 127 mg/dL 0-200 RISK OF HE ART (test code = DISEASEPublishe d by Cholesterol Total) [employer] Dottie lyte Optimal Borderl ine [...] LDL/HDL Ratio=L DL Calc/HDL Chol Comprehensive Metabolic [id number] 12:18:35 Test Item Value Reference Range Interpretation [...] A/G 2.0 ratio N Ratio) Comprehensive Metabolic [id number] 12:18:35 Test Item Value Reference Range Interpretation [...] the National Kidney Foundation, http://nkdep.ni h.gov Alcohol [id number] 12:18:35 Test Item Value Reference Range Interpretation Comments Ethanol Level (test <0.00 g/dL 0.00-0.01 Intoxica lázaro 0.080 g/dL code = Ethanol or more Level) Ethanol Inst (test <0 N code = Ethanol Inst) Comprehensive Metabolic [id number] 12:18:35 Test Item Value Reference Range Interpretation [...] Cannabinoid Screen Ur) Urinalysis with Culture, if [id number] 11:17:21 Test Item Value Reference Range Interpretation [...] Micro Ind?) rule GL_SJM_UA_MICRO _IN D Automated [id number] 11:14:20 Test Item Value Reference Range Interpretation Comments Neutro Auto (test code = Neutro 73.7 % 36.0-70.0 H Auto) Lymph Auto (test code = Lymph Auto) 18.8 % 12.0-44.0 Cecil Auto (test code = Cecil Auto) 5.0 % 0.0-11.0 Eos, Auto (test code = Eos, Auto) 1.4 % 0.0-7.0 Basophil Auto (test code = Basophil 0.7 % 0.0-2.0 Auto) Neutro Absolute (test code = Neutro 6.3 x10 1.6-7.4 Absolute) Lymph Absolute (test code = Lymph 1.61 x10 .50-4.60 Absolute) Cecil Absolute (test code = Cecil .43 x10 .00-1.20 Absolute) Eos Absolute (test code = Eos 0.12 x10 0.00-0.74 Absolute) Baso Absolute (test code = Baso 0.06 x10 0.00-0.21 Absolute) IG [id number] 11:14:20 Test Item Value Reference Range Interpretation Comments IG (test code = IG) 0.4 % 0.0-5.0 IG Abs (test code = IG Abs) 0 x10 N Complete Blood Count with [id number] 11:14:19 Test Item Value Reference Range Interpretation [...]
[2021-10-12 20:11] LABS: Urine Blood Negative (Negative); Urine Glucose Negative (Negative); Urine Protein Negative (Negative)
[2021-10-12 20:25] LABS: Absolute Lymphocytes (CBC) 2.2 K/uL (0.7-4.9); MPV 10.1 fL (7.6-11.3); RBC Red Blood Cell Count 4.65 M/uL (4.33-5.43)
[2021-10-12 20:29] LABS: Protime INR 0.96
[2021-10-12 20:29] LABS: Barbiturates NEGATIVE (NEGATIVE); Benzodiazepines NEGATIVE (NEGATIVE); Cocaine NEGATIVE (NEGATIVE); METHAMPHETAM NEGATIVE (NEGATIVE); Methadone NEGATIVE (NEGATIVE); Opiates NEGATIVE (NEGATIVE); Phencyclidine NEGATIVE (NEGATIVE); THC Cannibis NEGATIVE (NEGATIVE)
[2021-10-12 20:48] LABS: ALT/SGPT 110 U/L (12-78); AST/SGOT 40 U/L (15-37); Alkaline Phosphatase 102 U/L (45-117); BUN Blood Urea Nitrogen 17 mg/dL (7-18); Bicarbonate 28 mmol/L (21-32); Bilirubin Direct < 0.1 mg/dL (0-0.2); Bilirubin Total 0.3 mg/dL (0.2-1.0); Glucose Level 103 mg/dL (74-106); Potassium 3.8 mmol/L (3.5-5.1); Protein, Total 7.1 g/dL (6.4-8.2); Sodium Level 139 mmol/L (136-145)
--- NOTE | 2021-10-12 22:19 | ER ---
Nurse's Notes [facility] Name: Carlos Walker Age: 30 yrs Sex: Male : 1990 Arrival Date: 10/12/2021 Time: 19:07 Bed DIS4 Private MD: Diagnosis: Suicidal ideations;Schizophrenia, unspecified;Auditory hallucinations;Visual hallucinations Presentation: 10/12 19:40 Chief complaint: Patient states: "I'm suicidal and homicidal and I'm seeing snakes and as6 the color blue" pt has a plan to cut his wrists with a knife. pt denies having access to a knife. Coronavirus screen: At this time, the client does not indicate any symptoms associated with coronavirus-19. Ebola Screen: No symptoms or risks identified at this time. Initial Sepsis Screen: Does the patient meet any 2 criteria? No. Patient's initial sepsis screen is negative. Does the patient have a suspected source of infection? No. Patient's initial sepsis screen is negative. Risk Assessment: Do you want to hurt yourself or someone else? Patient reports desire/thoughts of hurting themselves or someone else. Provider notified. Onset of symptoms was October 10, 2021. 19:40 Method Of Arrival: Ambulatory as6 19:40 Acuity: EDD 2 as6 Triage Assessment: 19:47 General: Appears in no apparent distress. Behavior is anxious. Pain: Complains of pain as6 in abdomen. Historical: - Allergies: 19:45 Promethazine; as6 19:45 Abilify; as6 - Home Meds: 19:45 divalproex Oral [Active]; Hydroxyzine Oral [Active]; olanzapine Oral [Active]; as6 paroxetine Oral [Active]; - PMHx: 19:45 Schizophrenia; Bipolar disorder; as6 - PSHx: 19:45 None; as6 - Immunization history:: Client reports receiving the 2nd dose of the Covid vaccine, moderna . - Social history:: Smoking status: Patient reports the use of cigarette tobacco products, smokes one pack cigarettes per day. - Family history:: not pertinent. - Hospitalizations: : No recent hospitalization is reported. Screenin:18 Abuse screen: Denies threats or abuse. Nutritional screening: No deficits noted. tw5 Tuberculosis screening: No symptoms or risk factors identified. Fall Risk None identified. Assessment: 22:18 General: Appears in no apparent distress. Behavior is calm, cooperative, appropriate tw5 for age, Reports "I have medication but it isnt working. I am still seeing things. I am feeling homicidal and suicdial.". Pain: Denies pain. Neuro: Level of Consciousness is awake, alert, obeys commands. 22:51 General: Behavior is agitated, anxious, restless. tw5 22:55 General: PD at the bedside speaking with patient. "I was just saying that I am suicidal tw5 and homicidal because I wanted attention.". Psych: 22:20 [place] Suicide Severity Screening: In the past month, have you wished you were tw5 or wished you could go to sleep and not wake up? Patient responds "No." "In the past month, have you actually had any thoughts of killing yourself?" Patient responds "yes." Based off the client's response additional [place] suicide severity screening questions to be further documented on paper forms. "In your lifetime, have you ever done anything, started to do anything, or prepared to do anything to end your life?" Patient responds "yes." Patient reports suicidal intent occurred greater than 3 months prior. Subjective: Patient's mood is hopeless, Hallucinations are auditory, visual. Objective: Patient is cooperative, irritable, Speech is pressured, Affect is flat. Interventions: Removed personal items and placed in bag. Belonging list filled out. placed in paper gown. Safety Checks: Personal items have been removed. Patient placed in hallway chair in line of sight of nurses station with sitter. Patient uses methamphetamines Last use was 3 weeks ago. Commitment: Patient will be a voluntary commitment. Vital Signs: 19:40 BP 124 / 100; Pulse 98; Resp 20 S; Temp 98.3(O); Pulse Ox 99% on R/A; Weight 77.11 kg as6 (R); Height 5 ft. 8 in. (172.72 cm) (R); Pain 3/10; 19:40 Body Mass Index 25.85 (77.11 kg, 172.72 cm) as6 ED Course: 19:07 Patient arrived in ED. bp1 19:19 Bladimir Moore MD is Attending Physician. rn 19:45 Triage completed. as6 19:47 Arm band placed on. as6 19:55 Inserted saline lock: 20 gauge in right antecubital area, using aseptic technique. as6 Blood collected. 20:05 Acetaminophen Sent. as6 20:05 Basic Metabolic Panel Sent. as6 20:05 CBC with Diff Sent. as6 20:05 ETOH Level Sent. as6 20:06 Hepatic Function Sent. as6 20:06 PT-INR Sent. as6 20:06 Ptt, Activated Sent. as6 20:06 Salicylate Sent. as6 21:59 Luisa Xiong is Primary Nurse. tw5 22:18 Patient has correct armband on for positive identification. Call light in reach. sitter tw5 with patient. Warm blanket given. Verbal reassurance given. 22:20 One-on-one care X 15 minutes. tw5 22:20 by ED staff. tw5 22:49 [facility] [place] notified Called [place] police department. Spoke to [place]. tw5 Informed them patient is medically cleared but stating he is having homicidal thoughts. Patient is wanting to leave hospital. . 22:55 IV discontinued, intact, bleeding controlled, No redness/swelling at site. Pressure tw5 dressing applied. 23:02 No provider procedures requiring assistance completed. tw5 Administered Medications: No medications were administered Outcome: 22:18 ER care complete, transfer ordered by . rn 23:01 Discharged to Law Enforcement tw5 23:01 Condition: stable 23:02 Discharge instructions given to police. tw5 23:02 Patient left the ED. tw5 Signatures: Bladimir Moore MD MD rn Paniauga, Brittany bp1 Wood, Tiffany tw5 Fletcher Cuevas RN YOHANNES as6
--- NOTE | 2021-10-12 22:19 | EDPHYS ---
Physician Documentation [facility] Name: Carlos Walker Age: 30 yrs Sex: Male : 1990 Arrival Date: 10/12/2021 Time: 19:07 Bed DIS4 Private MD: ED Physician Bladimir Moore HPI: 10/12 21:56 This 30 yrs old Male presents to ER via Ambulatory with complaints of Suicidal rn Ideation, Homicidal Ideation, Hallucination. 21:56 The patient presents to the emergency department with homicidal ideation, suicide rn ideation, and the patient has a plan. 22:15 Onset: The symptoms/episode began/occurred at an unknown time. Associated signs and rn symptoms: Pertinent positives; anxiety, hallucinations, homicidal ideation, suicide ideation. Severity of symptoms: At their worst the symptoms were moderate in the emergency department the symptoms are unchanged. The patient has experienced similar episodes in the past. The patient has not recently seen a physician. Reports ran out of psychiatric medications, no longer doing drugs, didn't feel like meds were helping anyway, reports homicidal ideations, suicidal ideations with plans to cut himself, and seeing snakes and hearing voices. . Historical: - Allergies: 19:45 Promethazine; as6 19:45 Abilify; as6 - Home Meds: 19:45 divalproex Oral [Active]; Hydroxyzine Oral [Active]; olanzapine Oral [Active]; as6 paroxetine Oral [Active]; - PMHx: 19:45 Schizophrenia; Bipolar disorder; as6 - PSHx: 19:45 None; as6 - Immunization history:: Client reports receiving the 2nd dose of the Covid vaccine, moderna . - Social history:: Smoking status: Patient reports the use of cigarette tobacco products, smokes one pack cigarettes per day. - Family history:: not pertinent. - Hospitalizations: : No recent hospitalization is reported. ROS: 22:15 Constitutional: Negative for fever, chills, and weight loss, Eyes: Negative for injury, rn pain, redness, and discharge, ENT: Negative for injury, pain, and discharge, Neck: Negative for injury, pain, and swelling, Cardiovascular: Negative for chest pain, palpitations, and edema, Respiratory: Negative for shortness of breath, cough, wheezing, and pleuritic chest pain, Abdomen/GI: Negative for abdominal pain, nausea, vomiting, diarrhea, and constipation, Back: Negative for injury and pain, MS/Extremity: Negative for injury and deformity, Skin: Negative for injury, rash, and discoloration, Neuro: Negative for headache, weakness, numbness, tingling, and seizure. Exam: 22:15 Constitutional: This is a well developed, well nourished patient who is awake, alert, rn and in no acute distress. Head/Face: Normocephalic, atraumatic. Eyes: Pupils equal round and reactive to light, extra-ocular motions intact. Lids and lashes normal. Conjunctiva and sclera are non-icteric and not injected. Cornea within normal limits. Periorbital areas with no swelling, redness, or edema. Cardiovascular: Regular rate and rhythm . No pulse deficits. Respiratory: No increased work of breathing, no retractions or nasal flaring. Abdomen/GI: Soft, non-tender Skin: Warm, dry MS/ Extremity: Pulses equal, no cyanosis. Neuro: Awake and alert, GCS 15 Psych: Awake, alert, with orientation to person, place and time. Behavior, mood, and affect are within normal limits. Vital Signs: 19:40 BP 124 / 100; Pulse 98; Resp 20 S; Temp 98.3(O); Pulse Ox 99% on R/A; Weight 77.11 kg as6 (R); Height 5 ft. 8 in. (172.72 cm) (R); Pain 3/10; 19:40 Body Mass Index 25.85 (77.11 kg, 172.72 cm) as6 MDM: 21:54 Patient medically screened. rn 22:16 Differential diagnosis: schizophrenia, lack of medication, suicidal ideations. Data rn reviewed: vital signs, nurses notes, lab test result(s), EKG, and as a result, I will admit patient. Counseling: I had a detailed discussion with the patient and/or guardian regarding: the historical points, exam findings, and any diagnostic results supporting the discharge/admit diagnosis, lab results, the need to transfer to another facility. Admission orders: after a detailed discussion of the patient's condition and case, the admit orders are written by me. 22:49 ED course: Pt threatening to leave, unclear reason, just "wants to go". Police and rn mental health deputy notified by charge nurse. Pt is medically cleared at this time.. 23:02 ED course: Pt evaluated by police, medically cleared, left with police given threats of rn homicidal thoughts and suicidal thoughts. . 10/12 19:20 Order name: Acetaminophen; Complete Time: 21:55 rn 10/12 19:20 Order name: Basic Metabolic Panel; Complete Time: 21:55 rn 10/12 19:20 Order name: CBC with Diff; Complete Time: 21:55 rn 10/12 19:20 Order name: ETOH Level; Complete Time: 21:55 rn 10/12 19:20 Order name: Hepatic Function; Complete Time: 21:55 rn 10/12 19:20 Order name: PT-INR; Complete Time: 21:55 rn 10/12 19:20 Order name: Ptt, Activated; Complete Time: 21:55 rn 10/12 19:20 Order name: Salicylate; Complete Time: 21:55 rn 10/12 19:20 Order name: Urine Drug Screen; Complete Time: 21:55 rn 10/12 19:20 Order name: EKG; Complete Time: 19:21 rn 10/12 19:20 Order name: EKG - Nurse/Tech; Complete Time: 20:05 rn 10/12 19:20 Order name: IV Saline Lock; Complete Time: 20:05 rn 10/12 20:11 Order name: Urine Dipstick-Ancillary; Complete Time: 21:55 EDMS 10/12 19:20 Order name: Labs collected and sent; Complete Time: 20:05 rn 10/12 19:20 Order name: Suicide Precautions; Complete Time: 22:18 rn 10/12 19:20 Order name: Suicide Screening ([place]); Complete Time: 22:20 rn 10/12 19:20 Order name: Urine Dipstick-Ancillary (obtain specimen) rn Administered Medications: No medications were administered Disposition Summary: 10/12/21 22:18 Transfer Ordered Transfer Location: Psych Facility rn Reason: Higher level of care rn Condition: Stable rn Problem: an ongoing problem rn Symptoms: are unchanged rn Accepting Physician: (10/12/21 23:02) tw5 Diagnosis - Suicidal ideations rn - Schizophrenia, unspecified rn - Auditory hallucinations rn - Visual hallucinations rn Forms: - Medication Reconciliation Form rn - SBAR form rn Signatures: Dispatcher [employer] EDMS Moore, Bladimir, MD MD rn Wood, Luisa tw5 Fletcher Cuevas RN RN as6 Corrections: (The following items were deleted from the chart) 23:02 22:18 Dr. mays tw5
[2021-10-12 23:20] VITALS: BP 124/100; TEMP 98.3; O2SAT 99
== END 2021-10-12 23:02 ==
LOC: ER 19:04
DX: R45.851 Suicidal ideations (principal); F20.9 Schizophrenia, unspecified; F17.210 Nicotine dependence, cigarettes, uncomplicated; Z88.8 Allergy status to other drugs, medicaments and biological substances
CPT/HCPCS: 36415; 80048; 80076; 80307; 80320; 80329; 81003; 85025; 85610; 85730; 93005; 99284

== ENCOUNTER 2021-11-13 03:37 | Emergency (ER) | payer SELFPAY ==
--- OUTSIDE RECORDS SUMMARY | 2021-11-13 03:39 | XMS REPORT | Continuity of Care Document ---
:1990 Author Organization [facility] t Address [address] [place] [address] Care Team Providers Name Role Phone Cipriano Attending Clinician Unavailable Cipriano Attending Clinician Unavailable Physician, Primary or Family Admitting Clinician Unavailrayo e Cipriano Admitting Clinician Unavailable Payers Payer Name Policy Type Policy Number Effective Date Expiration Date S ource Problems Condition Condition Condition Status Onset Resolution Last Treating Co mments Source Name Details Category Date Date Treatment Clinician Date Problem Problem [facility] Allergies, Adverse Reactions, Alerts Allergy Allergy Status Severity Reaction(s) Onset Inactive Treating Comm ents Source Name Type Date Date Clinician prometha DA Active MO 2020-0 [facility]05 [place] 00:[facility]: d 00 [facility] aripipra DA Active SV 2020-0 [facility] zole 3-05 [place] 00:00: d 00 [facility] prometha DA Active MO TREMORS 2020-0 [facility] zine 3-05 [place] 00:00: d 00 [facility] aripipra DA Active SV DYSTONIC 2020-0 [facility] zole REACTION 3-05 [place] 00:00: d 00 [facility] prometha Drug Active [facility] Abilify Drug Active [facility] prometha Drug Active [facility] Abilify Drug Active [facility] prometha Drug Active [facility] prometha Drug Active [facility] Abilify Drug Active [facility] Abilify Drug Active [facility] prometha Drug Active [facility] Abilify Drug Active [facility] prometha Drug Active . [facility] Social History Social Habit Start Date Stop Date Quantity Comments Source Sex Assigned At [birth year] Female [facility] 00:00:00 00:00:00 Smoking Status Start Date Stop Date Source Unknown if ever smoked [facility] Medications This patient has no known medications. [...] kg BP Diastolic 2020-08-03 15:36:00 81 mm[Hg] [facility] BP Systolic 2020-08-03 15:36:00 114 mm[Hg] [facility] Heart Rate 2020-08-03 15:36:00 69 /min [facility] Respiratory rate 2020-08-03 15:36:00 18 /min [facility] Body Temperature 2020-08-03 15:36:00 98.7 [degF] [facility] BP Diastolic 2020-08-03 15:10:00 81 mm[Hg] [facility] BP Systolic 2020-08-03 15:10:00 114 mm[Hg] [facility] Heart Rate 2020-08-03 15:10:00 69 /min [facility] Respiratory rate 2020-08-03 15:10:00 18 /min [facility] Body Temperature 2020-08-03 15:10:00 98.7 [degF] [facility] [employer] Procedures This patient has no known procedures. Encounters Start End Encounter Admission Attending Care Care Encounter Source Date/Time Date/Time Type Type Clinicians Facility Department ID 2021-04-20 Outpatient CAROLYNN PRADHAN [id number] [facility] 22:53:11 [id number] [facility] 2020-08-03 Inpatient CAROLYNN PRADHAN [id number] [facility] 15:06:00 [id number] [facility] 2019-09-01 Inpatient HCAPM KAYLEE [id number] [facility] 06:12:00 [facility] 2019-08-31 Inpatient HCAPM KAYLEE [id number] [facility] 19:06:00 [facility] 2020-08-03 2020-08-03 Departed BAYRON PRADHAN [id number] [facility] 15:24:00 15:37:00 Emergency TELIZ [facility] 36 [facility] 2019-01-21 2019-01-31 Inpatient 1 [facility] [address] [id number] 10:32:00 13:54:00 [facility] 2018-11-01 2018-11-09 Inpatient 1 [facility] PSY [id number] [address] 14:32:00 13:51:00 [facility] Results Test Description Test Time Test Comments [...] Dose Date: 06/28/00 Dose Time: HEPATIC FUNCTION [id number] 15:01:00 Test Item Value Reference Range Interpretation [...] ALKP) Last Dose Date: 06/28/00 Dose Time: [id number] 15:01:00 Test Item Value Reference Range Interpretation Comments ACETAMINOPHEN (test code = ACET) < 2.0 mcG/ML 10.0-30.0 L Last Dose Date: 06/28/00 Dose Time: [id number] 15:01:00 Test Item Value Reference Range Interpretation Comments ALCOHOL (test code = ALC) < 3 MG/DL 0-10 N Last Dose Date: 06/28/00 Dose Time: [id number] 07:32:00 Test Item Value Reference Range Interpretation Comments SALICYLATE (test code = ISA) < 1.7 MG/DL 2.8-20.0 THER L BASIC METABOLIC [id number] 07:24:00 Test Item Value Reference Range Interpretation [...] Dose Date: 06/28/00 Dose Time: HEPATIC FUNCTION [id number] 07:24:00 Test Item Value Reference Range Interpretation [...] ALKP) Last Dose Date: 06/28/00 Dose Time: [id number] 07:24:00 Test Item Value Reference Range Interpretation Comments ACETAMINOPHEN (test code = ACET) mcG/ML 10.0-30.0 Last Dose Date: 06/28/00 Dose Time: [id number] 07:24:00 Test Item Value Reference Range Interpretation [...] for culture: Suprapubic PainDRUGS OF ABUSE SCREEN [id number] 06:55:00 Test Item Value Reference Range Interpretation [...] culture: Suprapubic PainUA RFLX MICR CULT IF [id number] 06:44:00 Test Item Value Reference Range Interpretation [...] for culture: Suprapubic PainDRUGS OF ABUSE SCREEN [id number] 06:44:00 Test Item Value Reference Range Interpretation [...] culture: Suprapubic PainUA RFLX MICR CULT IF [id number] 06:43:00 Test Item Value Reference Range Interpretation [...] for culture: Suprapubic PainDRUGS OF ABUSE SCREEN [id number] 06:43:00 Test Item Value Reference Range Interpretation [...] CLEAN CATCHIndication for culture: Suprapubic PainCBC W/AUTO [id number] 06:40:00 Test Item Value Reference Range Interpretation [...] = NO DIFF/SCN CRITERIA MDIFF) CBC W/AUTO [id number] 21:39:00 Test Item Value Reference Range Interpretation [...] CONSISTA NT WITH AUTO DIFFERENTIAL. CBC W/AUTO [id number] 20:15:00 Test Item Value Reference Range Interpretation [...] code = DIFF/SCN CRITERIA MDIFF) COMPREHENSIVE METABOLIC [id number] 20:01:00 Test Item Value Reference Range Interpretation [...] N (test code = ALKP) Valproic Acid [id number] 08:10:30 Test Item Value Reference Range Interpretation Comments Valproic Acid Level (test code 94.1 ug/mL(g) 50.0-100.0 = Valproic Acid Level) Hemoglobin [id number] 09:40:02 Test Item Value Reference Range Interpretation Comments Hemoglobin A1c (test code 5.0 % 4.8-5.9 No n Diabetic = Hemoglobin A1c) 4.8-5.9%Di abetic <7.0% Valproic Acid [id number] 08:30:39 Test Item Value Reference Range Interpretation Comments Valproic Acid Level (test code 120.3 ug/mL(g) 50.0-100.0 H = Valproic Acid Level) RPR [id number] 06:07:29 Test Item Value Reference Range Interpretation Comments RPR Qual (test code = RPR Qual) Non-Reactive Non-Reactive Reactive Control (test code = Reactive Reactive Control) Weak Reactive Control (test Weak Reactive code = Weak Reactive Control) Non-Reactive Control (test code Non-Reactive = Non-Reactive Control) Lot # (test code = Lot #) [id number] Expiration Dt (test code = 10 N Expiration Dt) Thyroid Stimulating [id number] 02:34:05 Test Item Value Reference Range Interpretation Comments TSH (test code = TSH) 1.290 mIU/mL 0.270-4.200 Lipid [id number] 02:16:21 Test Item Value Reference Range Interpretation Comments Cholesterol Total 127 mg/dL 0-200 RISK OF HE ART (test code = DISEASEPublishe d by Cholesterol Total) [place] [employer] Dottie lyte Optimal Borderl ine [...] LDL/HDL Ratio=L DL Calc/HDL Chol Comprehensive Metabolic [id number] 12:18:35 Test Item Value Reference Range Interpretation [...] A/G 2.0 ratio N Ratio) Comprehensive Metabolic [id number] 12:18:35 Test Item Value Reference Range Interpretation [...] the National Kid[employer] Foundation, http://nkdep.ni h.gov Alcohol [id number] 12:18:35 Test Item Value Reference Range Interpretation Comments Ethanol Level (test <0.00 g/dL 0.00-0.01 Intoxica lázaro 0.080 g/dL code = Ethanol or more Level) Ethanol Inst (test <0 N code = Ethanol Inst) Comprehensive Metabolic [id number] 12:18:35 Test Item Value Reference Range Interpretation [...] ag e have not been validated by e MDRD study and should be interpreted [...] not provided, and t he patient is jaziel hassan, multiply by 0.7 42. Results for pat ients <18 years of ag e have not been validated by e MDRD study and should be interpreted [...] Cannabinoid Screen Ur) Urinalysis with Culture, if [id number] 11:17:21 Test Item Value Reference Range Interpretation [...] Micro Ind?) rule GL_SJM_UA_MICRO _IN D Automated [id number] 11:14:20 Test Item Value Reference Range Interpretation Comments Neutro Auto (test code = Neutro 73.7 % 36.0-70.0 H Auto) Lymph Auto (test code = Lymph Auto) 18.8 % 12.0-44.0 Upshur Auto (test code = U[place]hur Auto) 5.0 % 0.0-11.0 Eos, Auto (test code = Eos, Auto) 1.4 % 0.0-7.0 Basophil Auto (test code = Basophil 0.7 % 0.0-2.0 Auto) Neutro Absolute (test code = Neutro 6.3 x10 1.6-7.4 Absolute) Lymph Absolute (test code = Lymph 1.61 x10 .50-4.60 Absolute) [place]hur Absolute (test code = U[place]hur .43 x10 .00-1.20 Absolute) Eos Absolute (test code = Eos 0.12 x10 0.00-0.74 Absolute) Baso Absolute (test code = Baso 0.06 x10 0.00-0.21 Absolute) IG [id number] 11:14:20 Test Item Value Reference Range Interpretation Comments IG (test code = IG) 0.4 % 0.0-5.0 IG Abs (test code = IG Abs) 0 x10 N Complete Blood Count with [id number] 11:14:19 Test Item Value Reference Range Interpretation [...]
--- NOTE | 2021-11-13 04:40 | ER ---
Nurse's Notes [facility] Name: Carlos Walker Age: 30 yrs Sex: Male : 1990 Arrival Date: 11/13/2021 Time: 03:44 Bed 14 Private MD: Diagnosis: Suicidal ideations;Schizophrenia, unspecified Presentation: 11/13 03:44 Chief complaint: Patient states: he is seeing bugs and snakes, pt states he is having as6 SI, having a plan to kill himself with a knife, pt does not have access to a knife EMS states: called out for hallucinations, seeing bugs and snakes. Coronavirus screen: At this time, the client does not indicate any symptoms associated with coronavirus-19. Ebola Screen: No symptoms or risks identified at this time. Initial Sepsis Screen: Does the patient meet any 2 criteria? No. Patient's initial sepsis screen is negative. Does the patient have a suspected source of infection? No. Patient's initial sepsis screen is negative. Risk Assessment: Do you want to hurt yourself or someone else? Patient reports desire/thoughts of hurting themselves or someone else. Provider notified. Onset of symptoms was November 13, 2021. 03:44 Method Of Arrival: EMS: [facility] as 03:44 Acuity: EDD 2 as6 Historical: - Allergies: 03:52 Abilify; as6 03:52 Promethazine; as6 - Home Meds: 11/14 09:38 Risperdal 2 mg Oral tab 1 tab once daily [Active]; Zyprexa 2 mg Oral once daily iw [Active]; Depakote 1000 mg Oral once daily [Active]; Trazodone 200 mg Oral once daily [Active]; - PMHx: 11/13 03:52 Bipolar disorder; Schizophrenia; as6 - Immunization history:: Adult Immunizations up to date. - Social history:: Smoking status: Patient denies any tobacco usage or history of. - Family history:: not pertinent. - Hospitalizations: : No recent hospitalization is reported. Screenin:00 Abuse screen: Denies threats or abuse. Nutritional screening: No deficits noted. jb4 Tuberculosis screening: No symptoms or risk factors identified. Fall Risk None identified. Assessment: 04:00 General: Appears in no apparent distress. comfortable, Behavior is calm, cooperative. jb4 Pain: Denies pain. Neuro: Level of Consciousness is awake, alert, obeys commands, Oriented to person, place, time, situation. Cardiovascular: Patient's skin is warm and dry. Respiratory: Airway is patent Respiratory effort is even, unlabored, Respiratory pattern is regular, symmetrical. GI: No signs and/or symptoms were reported involving the gastrointestinal system. : No signs and/or symptoms were reported regarding the genitourinary system. EENT: No signs and/or symptoms were reported regarding the EENT system. Derm: Skin is intact, Skin is pink, warm \\T\\ dry. Musculoskeletal: Circulation, motion, and sensation intact. Range of motion: intact in all extremities. 05:00 Reassessment: Patient appears in no apparent distress at this time. Patient and/or jb4 family updated on plan of care and expected duration. Pain level reassessed. Patient is alert, oriented x 3, equal unlabored respirations, skin warm/dry/pink. 06:00 Reassessment: Patient appears in no apparent distress at this time. Patient and/or jb4 family updated on plan of care and expected duration. Pain level reassessed. Patient is alert, oriented x 3, equal unlabored respirations, skin warm/dry/pink. 07:00 Reassessment: Pt is resting in bed with eyes closed, respirations are even and jb4 unlabored with no s/s of pain or distress noted. 13:35 Reassessment: Pt currently denying SI, requesting to leave, reporting seeing snakes and jl7 hearing people through the justice, appears to be getting agitated, ERD notified, see MAR for orders. 15:00 Reassessment: [facility] circulation sales representative at bedside speaking with pt. Pt responsive and jh6 answering questons. 19:00 Reassessment: Pt currently resting calmly in bed. Respirations are even and unlabored. jb4 Not currently reporting visual or auditory hallucinations. No s/s of pain or distress noted. 22:00 Reassessment: Pt states " I have snakes in my head. They are making noises and moving jb4 around." Pt remains calm cooperative, redirected back to bed. 11/14 07:00 Reassessment: Pt currently sleeping, equal and unlabored respirations. Sitter at aa5 bedside. . 07:00 Reassessment: See paper chart for safety checks. . aa5 08:00 Reassessment: Pt sleeping, equal and unlabored respirations. Sitter remains at bedside. aa5 . 08:30 Reassessment: Pt now awake. . aa5 08:30 General: Appears comfortable, Behavior is calm, cooperative, Reports suicidal ideation, aa5 reports auditory and visual hallucinations. Pt states "I do meth and the last time I did it was 2 days ago". Pain: Denies pain. Neuro: Level of Consciousness is awake, alert, obeys commands, Oriented to person, place, time, situation. Cardiovascular: Heart tones S1 S2 present Rhythm is regular. Respiratory: Airway is patent Respiratory effort is even, unlabored, Respiratory pattern is regular, symmetrical. GI: Abdomen is flat, Bowel sounds present X 4 quads. Abd is soft and non tender X 4 quads. : No signs and/or symptoms were reported regarding the genitourinary system. EENT: No signs and/or symptoms were reported regarding the EENT system. Derm: Skin is dry, Skin is normal, Skin temperature is warm. Musculoskeletal: Range of motion: intact in all extremities. 08:30 Reassessment: Saline lock noted to right AC, 20 G. . aa5 09:25 Reassessment: Patient is alert, oriented x 3, equal unlabored respirations, skin aa5 warm/dry/pink. Breakfast tray given to patient. . 11:00 Reassessment: Pt pacing in room, appears anxious, pt talking to himself. Pt becoming aa5 louder and louder as he speaks to himself. was notified. . 11:26 Reassessment: Called [facility] intake nurse who states that patient remains on wait ss list. 11:33 Reassessment: Pt more calm than previous assessment, pt using urinal. . aa5 12:30 Reassessment: Pt given lunch tray, pt tolerating well. . aa5 13:16 Reassessment: Pt resting in bed, awake. . aa5 14:05 Reassessment: Patient is alert, oriented x 3, equal unlabored respirations, skin aa5 warm/dry/pink. PT sitting up in bed. Sitter remains at bedside. . 16:33 Reassessment: Pt sleeping . aa5 17:30 Reassessment: Pt's family at bedside. Pt's family brought patient belongings. Pt aa5 reports he is currently staying with his friend and needed his belongings with him. Personal Valuables checklist completed and given to security for safe keeping, personal belongings include: pants, socks, shirt, undergarments, cell phone included in backpack, $1000.00 wyatt placed in safety bag with # [id number] and witnessed by Clau Rincon RN. See pt's chart for checklist. . 17:30 Reassessment: Patient is alert, oriented x 3, equal unlabored respirations, skin aa5 warm/dry/pink. 18:25 Reassessment: Pt currently using urinal. . aa5 19:00 Reassessment: Pt watching TV sitting up in the bed. vc1 19:45 Reassessment: Patient and/or family updated on plan of care and expected duration. Pain vc1 level reassessed. Patient is alert, oriented x 3, equal unlabored respirations, skin warm/dry/pink. Sitter at bedside. Pt talking to himself, sitting up drinking coffee. 23:00 Reassessment: Pt sleeping at this time. vc1 11/15 00:30 Reassessment:. Reassessment: Pt. sleeping at this time. vc1 05:22 Reassessment: Pt sleeping at this time. vc1 07:05 General: Appears in no apparent distress. comfortable, Behavior is calm, cooperative. vg1 Pain: Denies pain. Neuro: Level of Consciousness is awake, alert, obeys commands, Oriented to person, place. Cardiovascular: Patient's skin is warm and dry. Respiratory: Airway is patent Respiratory effort is even, unlabored. GI: No signs and/or symptoms were reported involving the gastrointestinal system. Abdomen is flat. : No signs and/or symptoms were reported regarding the genitourinary system. EENT: No signs and/or symptoms were reported regarding the EENT system. Derm: Skin is intact, Skin is pink, warm \\T\\ dry. Musculoskeletal: Circulation, motion, and sensation intact. 09:30 Reassessment: Pt pacing in room; appears to be talking to self. vg1 10:02 Reassessment: Pt escorted to the restroom with Rachell BIRMINGHAM. vg1 10:15 Reassessment: pt back in room. vg1 11:11 Reassessment: Pt appears to be agitated and stating "I want to leave I dont want to be vg1 here anymore just let me go and I can go to my friends house." Provider notified. 11:23 Reassessment: Received VO from Purnima GALAN to administer Ativan 2 mg IVP x1 and Risperdal vg1 2 mg PO x1. 21:00 Reassessment: No changes from previously documented assessment. Patient denies pain at lb this time. General: Appears in no apparent distress. Behavior is cooperative. 11/16 08:30 Reassessment: Patient appears in no apparent distress at this time. Patient and/or ph family updated on plan of care and expected duration. Pain level reassessed. Patient is alert, oriented x 3, equal unlabored respirations, skin warm/dry/pink. Pt awake and ambulatory to restroom, sitter present. 13:21 Reassessment: Patient appears in no apparent distress at this time. Patient and/or ph family updated on plan of care and expected duration. Pain level reassessed. Pt awake and alert, ate lunch and is now pacing in room talking to himself, states, " I can't leave now.". 14:09 Reassessment: Denver Urias Called: Pt yelling, "I don't want to be here any more!! I don't ss want to kill anyone or myself! I only said that because I wasn't sober and now I'm sober. I want my clothes! I want to leave!" Verified that patient is not under an ASA, Dr. Kraft notified and states "OK". Security called and is getting belongings from safe. 14:36 Reassessment: After getting dressed patient states, "I'm still seeing snakes. I want to ss stay. I'm sorry.". 15:00 Reassessment: Patient appears in no apparent distress at this time. Patient and/or ph family updated on plan of care and expected duration. Pain level reassessed. Pt compliant w/ giving belongings back to security, changed into paper scrubs, $1000.00 dollars in wyatt also given to security in sealed envelope. 15:30 Reassessment: Patient appears in no apparent distress at this time. Patient and/or ph family updated on plan of care and expected duration. Pain level reassessed. Pt resting quietly, watching TV. 17:00 Reassessment: Patient appears in no apparent distress at this time. Reassessment: ph Patient appears in no apparent distress at this time. Pt resting quietly w/ eyes closed. 11/17 07:00 Reassessment: Patient is alert, oriented x 3, equal unlabored respirations, skin jh6 warm/dry/pink. PT SLEEPING WITHOUT ISSUES NOTED. WAITING FOR TRANSFER TO [facility] AT THIS TME. 10:51 Reassessment: Patient is alert, oriented x 3, equal unlabored respirations, skin jh6 warm/dry/pink. pt woke up ate breakfast and is in good spirits. no complaints when asked. no word of transport. 11:20 General: spoke with britany at [facility] for nurse to nurse. . jh6 14:55 General: PT BEING TRANSPORTED TO [facility] BY [facility]. [facility] 6 WITH PT WITNESSED PT RECEIVING PT GETTING AND COUNTING MONEY FROM SAFE. PT SIGNED BELONGINGS PAPERWORK STATING THAT HE HAS RECEIVED ALL BELONGINGS INCLUDING MONEY. . Psych: 11/13 04:00 [place] Suicide Severity Screening: In the past month, have you wished you were jb4 or wished you could go to sleep and not wake up? Patient responds "yes." "In the past month, have you actually had any thoughts of killing yourself?" Patient responds "yes." "In your lifetime, have you ever done anything, started to do anything, or prepared to do anything to end your life?" Patient responds "no.". Subjective: Patient's mood is sad, Delusions are denied, Hallucinations are auditory, visual, Having thoughts of suicide. Plan for suicide is Pt's plan was to use a knife to kill himself. Objective: Patient is cooperative, Speech is normal, Affect is blunted. Interventions: Removed personal items and placed in bag. Patient placed in hospital gown. Searched person for dangerous items. Belonging list filled out. Safety Checks: Personal items have been removed. Door is open. No visitors are present at this time. Sitter at bedside. Pt denies substance abuse. Commitment: Patient will be a voluntary commitment. 11/14 08:30 Interventions: Searched person for dangerous items. Patient uses methamphetamines Last aa5 use was 2 days ago. Commitment: Patient will be a voluntary commitment. Vital Signs: 11/13 03:44 BP 134 / 92; Pulse 130; Resp 18 S; Temp 98.5(O); Pulse Ox 100% on R/A; Weight 84.82 kg; as6 Height 5 ft. 8 in. (172.72 cm); Pain 0/10; 07:15 BP 112 / 87; Pulse 101; Resp 20; Temp 97.8; Pulse Ox 98% on R/A; Pain 0/10; jh6 20:50 BP 127 / 97; Pulse 96; Resp 20; Pulse Ox 100% on R/A; Pain 0/10; vc1 11/14 08:32 BP 111 / 80; Pulse 77; Resp 16 S; Temp 98.1(TE); Pulse Ox 98% on R/A; aa5 14:00 BP 115 / 82; Pulse 82; Resp 18 S; Temp 98.0(TE); Pulse Ox 100% on R/A; aa5 11/15 07:10 BP 110 / 76; Pulse 90; Resp 16; Temp 98.8; Pulse Ox 97% on R/A; vg1 11/16 05:00 BP 121 / 67; Pulse 82; Resp 16; Temp 97.2; Pulse Ox 100% ; Pain 0/10; mw 11/17 07:30 BP 118 / 72; Pulse 67; Resp 15; Temp 97.7(TE); Pulse Ox 100% ; Pain 0/10; jh6 11/13 03:44 Body Mass Index 28.43 (84.82 kg, 172.72 cm) as6 ED Course: 11/13 03:44 Patient arrived in ED. bp1 03:44 Fletcher Cuevas, RN is Primary Nurse. as6 03:48 Bladimir Moore MD is Attending Physician. rn 03:52 Triage completed. as6 03:52 Arm band placed on. as6 04:00 Patient has correct armband on for positive identification. Bed in low position. Call jb4 light in reach. Side rails up X 1. 04:30 Inserted saline lock: 20 gauge in right antecubital area, using aseptic technique. oe Blood collected. 04:58 COVID-19 SARS RT PCR (Document "Date of Onset" if Symptomatic) Sent. oe 11:56 [facility] Crisis Line called to coordinate a visit with mental health screener. em1 13:38 Attending Physician role handed off by Bladimir Moore MD [facility] 13:38 Raymon Avendano MD is Attending Physician. [facility] 15:00 [facility] screener on site and with pt. em1 15:24 [facility] screener recommends inpatient and will work on getting pt a bed at . [facility] Johnathan. 11/14 07:00 Report received from Mukund Colbert RN and Rebeca RN. aa5 19:00 Report given to YOHANNES Francis and YOHANNES Barrera. aa5 11/15 00:[address] [facility] to get an update on Pt's transfer, they stated they are currently wm in diversion, that he is currently 3rd down on list to get a bed and that they likely won't have any available till Wednesday morning when they do their discharging. 07:06 Safety Checks: Personal items have been removed. The door is open or patient has been vg1 placed in a hallway bed/chair. Sitter present at this time. Other: Pt is resting with eyes closed. 08:08 Safety Checks: Personal items have been removed. The door is open or patient has been vg1 placed in a hallway bed/chair. Sitter present at this time. Other: Pt resting with eyes closed. 09:00 Safety Checks: Personal items have been removed. The door is open or patient has been vg1 placed in a hallway bed/chair. Sitter present at this time. Other: Rachell BIRMINGHAM, escorted pt to restroom. 10:[address] [facility] pt intake to update status and was kindly informed that they do not em1 discharge patients over the weekend and he will not be getting a room until Wednesday at the earliest. 10:28 Safety Checks: Personal items have been removed. The door is open or patient has been vg1 placed in a hallway bed/chair. Sitter present at this time. Other: pt resting quietly in bed. 11:30 Safety Checks: Personal items have been removed. The door is open or patient has been vg1 placed in a hallway bed/chair. Sitter present at this time. Other: Pt resting with eyes closed. 12:30 Safety Checks: Personal items have been removed. The door is open or patient has been vg1 placed in a hallway bed/chair. Sitter present at this time. 13:30 Safety Checks: Personal items have been removed. The door is open or patient has been vg1 placed in a hallway bed/chair. Sitter present at this time. Other: pt resting with eyes closed. 14:30 Safety Checks: Personal items have been removed. The door is open or patient has been vg1 placed in a hallway bed/chair. Sitter present at this time. Other: appears in no apparent distress. 15:23 Safety Checks: Personal items have been removed. The door is open or patient has been vg1 placed in a hallway bed/chair. Sitter present at this time. Other: pt appears to be agitated, pacing in room and stated "I need my fucking money now" educated pt that money and belongings are in a safe; pt then sat down in bed; appears to be talking to self. Provider notified. 16:28 Safety Checks: Personal items have been removed. The door is open or patient has been vg1 placed in a hallway bed/chair. Sitter present at this time. Other: Pt sitting at side of bed with food and beverage. 17:00 Safety Checks: Personal items have been removed. The door is open or patient has been vg1 placed in a hallway bed/chair. Sitter present at this time. Other: Pt finished 100% of dinner. 17:30 Safety Checks: Personal items have been removed. The door is open or patient has been vg1 placed in a hallway bed/chair. Sitter present at this time. Other: Pt resting in bed watching TV; appears to be in no apparent distress. 18:35 Safety Checks: Personal items have been removed. The door is open or patient has been vg1 placed in a hallway bed/chair. Sitter present at this time. Other: Pt resting with eyes closed. 21:00 Noise minimized. PO fluids given. lb 23:00 Pillow given. Verbal reassurance given. Patient is placed in psych hold. Patient is mw placed in psych hold. 11/16 01:00 No apparent distress. Patient requests liquids. Patient requests rest room assistance. mw 05:00 Resting quietly. Safety Checks: Personal items have been removed. The door is open or mw patient has been placed in a hallway bed/chair. Sitter present at this time. 08:31 Primary Nurse role handed off by Fletcher Cuevas, YOHANNES ph 08:31 Ebony Elizabeth, RN is Primary Nurse. ph 08:31 No provider procedures requiring assistance completed. ph 14:20 IV discontinued, intact, bleeding controlled, No redness/swelling at site. Pressure ph dressing applied. 11/17 07:54 role handed off by Stephanie Matta RN bd 07:54 Primary Nurse role handed off by Ebony Elizabeth RN bd 08:25 spoke with Johnathan at [facility], pt is still waiting on a [facility] bed, bd discharged are expected later today. 12:22 Attending Physician role handed off by Raymon Avendano MD ms3 12:22 Elmer Damico DO is Attending Physician. ms3 13:20 pt accepted in transfer to [facility] by dr Valdez admin approval given by james Gurein. Administered Medications: 11/13 04:57 Drug: NS 0.9% 1000 ml Route: IV; Rate: 1000 ml; Site: right antecubital; jb4 05:58 Drug: Geodon (ziprasidone) 10 mg Route: IM; Site: right deltoid; jb4 07:00 Drug: NS 0.9% 1000 ml Route: IV; Rate: 1000 ml; Site: right antecubital; jb4 13:37 Drug: Ativan (LORazepam) 2 mg Route: IVP; Site: left antecubital; jh6 15:12 Follow up: Response: No adverse reaction jh6 13:40 Drug: NS 0.9% 1000 ml Route: IV; Rate: 125 ml/hr; Site: right antecubital; jl7 11/14 11:03 Drug: Ativan (LORazepam) 2 mg Route: IVP; Site: right antecubital; aa5 11:30 Follow up: Response: No adverse reaction aa5 11:09 Drug: RisperDAL (risperiDONE) 2 mg Route: PO; aa5 14:05 Follow up: Response: No adverse reaction aa5 11/15 15:31 Drug: RisperDAL (risperiDONE) 2 mg Route: PO; vg1 15:31 Drug: Ativan (LORazepam) 2 mg Route: IVP; Site: right antecubital; vg1 11/16 15:11 Drug: Ativan (LORazepam) 2 mg Route: PO; ph 16:00 Follow up: Response: No adverse reaction ph 15:40 Drug: RisperDAL (risperiDONE) 2 mg Route: PO; ph 16:30 Follow up: Response: No adverse reaction ph Medication: 11/13 04:00 VIS not applicable for this client. jb4 Outcome: 03:49 ER care complete, transfer ordered by . yohannes 11/17 15:05 Patient left the ED. jh6 Signatures: Maureen Saleh Martha, RN Raymon Leahy MD MD cha Bonnot, Lauren, Clau Luis RN, RN Bladimir Reeves MD MD rn Martinez, Eric emAriella Talavera RN RN aa5 Marley Harris, RN YOHANNES ss Ebony Elizabeth RN YOHANNES ph Mukund Bonner, RN RN jb4 Miguel Booth Jahala, RN RN jl7 Stephanie Matta, RN RN vg1 Elmer Damico, DO DO ms3 Haim, Kely bp1 Cailin Townsend Ashby RN YOHANNES as6 Esme Moss RN RN jh6 Penny Ramos RN RN vc1 Corrections: (The following items were deleted from the chart) 11/14 19:35 17:30 Reassessment: Pt's family at bedside. Pt's family brought patient belongings. Pt aa5 reports he is currently staying with his friend and needed his belongings with him. Personal Valuables checklist completed and given to security for safe keeping, personal belongings include: pants, socks, shirt, undergarments, cell phone included in backpack, $1000.00 wyatt placed in safety bag with # [id number] and witnessed by Clau Rincon RN. . aa5 11/15 09:57 09:05 General: Appears in no apparent distress. comfortable, Behavior is calm, vg1 cooperative, vg1 :57 09:05 Pain: Denies pain. vg1 vg1 09:05 Neuro: Level of Consciousness is awake, alert, obeys commands, Oriented to vg1 person, place, vg1 :57 09:05 Cardiovascular: Patient's skin is warm and dry. vg1 vg1 :57 09:05 Respiratory: Airway is patent Respiratory effort is even, unlabored, vg1 vg1 09:05 GI: No signs and/or symptoms were reported involving the gastrointestinal system. vg1 Abdomen is flat, vg1 09:05 : No signs and/or symptoms were reported regarding the genitourinary system. vg1vg1 09:05 EENT: No signs and/or symptoms were reported regarding the EENT system. vg1 vg1 09:05 Derm: Skin is intact, Skin is pink, warm \\T\\ dry. vg1 vg1 09:05 Musculoskeletal: Circulation, motion, and sensation intact. vg1 vg1
--- NOTE | 2021-11-13 04:40 | EDPHYS ---
Physician Documentation [facility] Name: Carlos Walker Age: 30 yrs Sex: Male : 1990 Arrival Date: 11/13/2021 Time: 03:44 Bed 14 Private MD: ED Physician Elmer Damico HPI: 11/13 03:49 This 30 yrs old Male presents to ER via Unassigned with complaints of suicidal rn ideations, hallucinations. 03:49 The patient presents to the emergency department with psychosis, has experienced rn auditory hallucinations, has experienced visual hallucinations, suicide ideation, and the patient has a plan. Onset: The symptoms/episode began/occurred at an unknown time. Associated signs and symptoms: Pertinent positives; hallucinations, suicide ideation, Pertinent negatives: chest pain, chills, fever. Severity of symptoms: At their worst the symptoms were moderate in the emergency department the symptoms are unchanged. The patient has experienced similar episodes in the past. The patient has not recently seen a physician. Pt reports ran out of his psychiatric medications, is hallucinating with auditory hallucinations and seeing snakes everywhere. Reports called police himself after having thoughts of killing himself with a knife. . Historical: - Allergies: 03:52 Abilify; as6 03:52 Promethazine; as6 - Home Meds: 11/14 09:38 Risperdal 2 mg Oral tab 1 tab once daily [Active]; Zyprexa 2 mg Oral once daily iw [Active]; Depakote 1000 mg Oral once daily [Active]; Trazodone 200 mg Oral once daily [Active]; - PMHx: 11/13 03:52 Bipolar disorder; Schizophrenia; as6 - Immunization history:: Adult Immunizations up to date. - Social history:: Smoking status: Patient denies any tobacco usage or history of. - Family history:: not pertinent. - Hospitalizations: : No recent hospitalization is reported. ROS: 03:49 Constitutional: Negative for fever, chills, and weight loss, Eyes: Negative for injury, rn pain, redness, and discharge, Neck: Negative for injury, pain, and swelling, Cardiovascular: Negative for chest pain, palpitations, and edema, Respiratory: Negative for shortness of breath, cough, wheezing, and pleuritic chest pain, Abdomen/GI: Negative for abdominal pain, nausea, vomiting, diarrhea, and constipation, Back: Negative for injury and pain, MS/Extremity: Negative for injury and deformity, Skin: Negative for injury, rash, and discoloration, Neuro: Negative for headache, weakness, numbness, tingling, and seizure, Psych: + suicidal ideations and hallucinations Exam: 03:49 Constitutional: Disheveled patient, no acute distress, seems anxious Head/Face: rn Normocephalic, atraumatic. Eyes: Pupils equal round and reactive to light, extra-ocular motions intact. Lids and lashes normal. Conjunctiva and sclera are non-icteric and not injected. Cornea within normal limits. Periorbital areas with no swelling, redness, or edema. ENT: dry MM Cardiovascular: tachycardic, regular Respiratory: No increased work of breathing, no retractions or nasal flaring. Abdomen/GI: Soft, non-tender Skin: Warm, dry, no rashes or lacerations MS/ Extremity: Pulses equal, no cyanosis. Neurovascular intact. Full, normal range of motion. Equal circumference. Neuro: Awake and alert, GCS 15, oriented to person, place, time, and situation. Vital Signs: 03:44 BP 134 / 92; Pulse 130; Resp 18 S; Temp 98.5(O); Pulse Ox 100% on R/A; Weight 84.82 kg; as6 Height 5 ft. 8 in. (172.72 cm); Pain 0/10; 07:15 BP 112 / 87; Pulse 101; Resp 20; Temp 97.8; Pulse Ox 98% on R/A; Pain 0/10; jh6 20:50 BP 127 / 97; Pulse 96; Resp 20; Pulse Ox 100% on R/A; Pain 0/10; vc1 11/14 08:32 BP 111 / 80; Pulse 77; Resp 16 S; Temp 98.1(TE); Pulse Ox 98% on R/A; aa5 14:00 BP 115 / 82; Pulse 82; Resp 18 S; Temp 98.0(TE); Pulse Ox 100% on R/A; aa5 11/15 07:10 BP 110 / 76; Pulse 90; Resp 16; Temp 98.8; Pulse Ox 97% on R/A; vg1 11/16 05:00 BP 121 / 67; Pulse 82; Resp 16; Temp 97.2; Pulse Ox 100% ; Pain 0/10; mw 11/17 07:30 BP 118 / 72; Pulse 67; Resp 15; Temp 97.7(TE); Pulse Ox 100% ; Pain 0/10; jh6 11/13 03:44 Body Mass Index 28.43 (84.82 kg, 172.72 cm) as6 MDM: 11/13 03:48 Patient medically screened. rn 03:52 Differential diagnosis: psychosis secondary to non-compliance, suicidal ideations. Data rn reviewed: vital signs, nurses notes, and as a result, I will admit patient. Counseling: I had a detailed discussion with the patient and/or guardian regarding: the historical points, exam findings, and any diagnostic results supporting the discharge/admit diagnosis, the need for further work-up and treatment in the hospital. Admission orders: after a detailed discussion of the patient's condition and case, the admit orders are written by me. 21:53 ED course: Pt stable, vitals normal, ambulatory to bathroom without assistance, still rn pending transfer for suicidal ideations and schizophrenia.. 11/17 11:46 ED course: Doc to doc with Dr Aguirre at [facility]. Would like CBC repeated and to be ms3 paged back.. 11/13 03:48 Order name: Acetaminophen; Complete Time: 05:25 11/13 03:48 Order name: Basic Metabolic Panel; Complete Time: 05:11/13 03:48 Order name: CBC with Diff; Complete Time: 05:11/13 03:48 Order name: ETOH Level; Complete Time: 05:11/13 03:48 Order name: Hepatic Function; Complete Time: 05:11/13 03:48 Order name: PT-INR; Complete Time: 05:11/13 03:48 Order name: Ptt, Activated; Complete Time: 05:11/13 03:48 Order name: Salicylate; Complete Time: 05:11/13 03:48 Order name: Urine Drug Screen; Complete Time: 13:39 rn 11/13 04:08 Order name: COVID-19 SARS RT PCR (Document "Date of Onset" if Symptomatic); Complete mw2 Time: 06:16 11/13 12:36 Order name: Urine Dipstick-Ancillary; Complete Time: 13:39 EDMS 11/13 13:39 Order name: Chem 7; Complete Time: 11:43 greyson 11/17 11:45 Order name: CBC w/o diff; Complete Time: 13:01 ms3 11/13 03:48 Order name: EKG; Complete Time: 04:41 rn 11/13 07:46 Order name: Diet Finger Food; Complete Time: 07:46 jh6 11/14 07:17 Order name: Diet Finger Food; Complete Time: 07:18 ap3 11/14 11:34 Order name: Diet Finger Food; Complete Time: 11:34 aa5 11/14 16:39 Order name: Diet Finger Food; Complete Time: 16:39 aa5 11/15 08:13 Order name: Diet Finger Food; Complete Time: 08:14 vg1 11/13 03:48 Order name: EKG - Nurse/Tech; Complete Time: 04:28 rn 11/13 03:48 Order name: IV Saline Lock; Complete Time: 04:28 rn 11/13 03:48 Order name: Labs collected and sent; Complete Time: 04:28 rn 11/13 03:48 Order name: Suicide Precautions; Complete Time: 04:49 rn 11/13 03:48 Order name: Suicide Screening ([place]); Complete Time: 04:49 rn 11/13 03:48 Order name: Urine Dipstick-Ancillary (obtain specimen); Complete Time: 20:27 rn 11/15 11:13 Order name: Finger Food EDMS 11/16 16:27 Order name: Diet Finger Food; Complete Time: 16:27 ph 11/17 06:23 Order name: Diet Finger Food; Complete Time: 06:24 ke1 11/17 08:00 Order name: Diet Finger Food; Complete Time: 08:01 bd 11/17 11:39 Order name: Diet Finger Food; Complete Time: 11:40 mh5 Administered Medications: 11/13 04:57 Drug: NS 0.9% 1000 ml Route: IV; Rate: 1000 ml; Site: right antecubital; jb4 05:58 Drug: Geodon (ziprasidone) 10 mg Route: IM; Site: right deltoid; jb4 07:00 Drug: NS 0.9% 1000 ml Route: IV; Rate: 1000 ml; Site: right antecubital; jb4 13:37 Drug: Ativan (LORazepam) 2 mg Route: IVP; Site: left antecubital; jh6 15:12 Follow up: Response: No adverse reaction jh6 13:40 Drug: NS 0.9% 1000 ml Route: IV; Rate: 125 ml/hr; Site: right antecubital; jl7 11/14 11:03 Drug: Ativan (LORazepam) 2 mg Route: IVP; Site: right antecubital; aa5 11:30 Follow up: Response: No adverse reaction aa5 11:09 Drug: RisperDAL (risperiDONE) 2 mg Route: PO; aa5 14:05 Follow up: Response: No adverse reaction aa5 11/15 15:31 Drug: RisperDAL (risperiDONE) 2 mg Route: PO; vg1 15:31 Drug: Ativan (LORazepam) 2 mg Route: IVP; Site: right antecubital; vg1 11/16 15:11 Drug: Ativan (LORazepam) 2 mg Route: PO; ph 16:00 Follow up: Response: No adverse reaction ph 15:40 Drug: RisperDAL (risperiDONE) 2 mg Route: PO; ph 16:30 Follow up: Response: No adverse reaction ph Disposition Summary: 11/13/21 03:49 Transfer Ordered Transfer Location: [facility] Facility rn Reason: Higher level of care rn Condition: Stable rn Problem: an ongoing problem rn Symptoms: are unchanged rn Accepting Physician: (11/17/21 15:05) jh6 Diagnosis - Suicidal ideations rn - Schizophrenia, unspecified rn Forms: - Medication Reconciliation Form rn - SBAR form rn Signatures: Dispatcher [employer] Raymon Colmenares MD MD cha Williams, Irene, RN Bladimir Reeves MD MD rn Calderon, Audri, RN RN aa5 Marley Harris RN Ebony Gray RN RN ph Mukund Bonner, RN RN jb4 Ana Francis RN RN jl7 Jairo Kraft MD MD ma2 Garcia, Victoria RN RN vg1 Elmer Damico DO DO ms3 Fletcher Cuevas, RN RN as6 Esme Moss, RN RN jh6 Corrections: (The following items were deleted from the chart) 05/23 15:05 05/19 03:49 Dr. rn jh6
[2021-11-13] MEDS ORDERED: NA CHLORIDE 0.9% 1,000 ML ONE ×3 (05:00→13:45)
[2021-11-13 05:09] LABS: Protime INR 1.11
[2021-11-13 05:13] LABS: Absolute Lymphocytes (CBC) 1.1 K/uL (0.7-4.9); Hematocrit 43.3 % (39.6-49.0); Lymphocytes % 6.5 % (15.3-44.8); MPV 9.3 fL (7.6-11.3)
[2021-11-13 05:20] LABS: ALT/SGPT 40 U/L (12-78); AST/SGOT 70 U/L (15-37); Albumin 4.9 g/dL (3.4-5.0); Alkaline Phosphatase 90 U/L (45-117); BUN Blood Urea Nitrogen 28 mg/dL (7-18); Bicarbonate 25 mmol/L (21-32); Bilirubin Direct 0.1 mg/dL (0-0.2); Bilirubin Total 0.6 mg/dL (0.2-1.0); Glomerular Filtration Rate 50 ml/min (=/>90); Glucose Level 135 mg/dL (74-106); Potassium 3.8 mmol/L (3.5-5.1); Protein, Total 8.4 g/dL (6.4-8.2); Sodium Level 139 mmol/L (136-145)
[2021-11-13] MEDS ORDERED: ZIPRASIDONE MESYLA 20 MG/VIAL IM ONE (05:51)
[2021-11-13] MEDS ORDERED: WATER FOR INJ,STERILE 10 ML ONE (05:51)
--- NOTE | 2021-11-13 07:37 | EKG ---
Test Date: 2021-11-13 Test Time: 04:11:19 French Tutor: KELLI MEASUREMENT RESULTS: Intervals: Rate: 123 LA: 144 QRSD: 92 QT: 318 QTc: 455 [place]: P: 72 LA: 144 QRS: 71 T: 41 INTERPRETIVE STATEMENTS: Sinus tachycardia Incomplete right bundle branch block Borderline ECG Compared to ECG 10/12/2021 20:05:21 Sinus rhythm no longer present Electronically Signed On 11-13-21 07:36:55 CDT by Ángel Maki
[2021-11-13 09:50] LABS: Barbiturates NEGATIVE (NEGATIVE); Benzodiazepines NEGATIVE (NEGATIVE); Cocaine NEGATIVE (NEGATIVE); METHAMPHETAM POSITIVE (NEGATIVE); Methadone NEGATIVE (NEGATIVE); Opiates NEGATIVE (NEGATIVE); Phencyclidine NEGATIVE (NEGATIVE); THC Cannibis NEGATIVE (NEGATIVE)
[2021-11-13 12:35] LABS: Urine Blood 1+ (Negative); Urine Glucose Negative (Negative); Urine Protein Trace (Negative); Urine Specific Gravity >=1.030 (1.005-1.030); Urine pH 5.5 (5.0-7.0)
[2021-11-13] MEDS ORDERED: LORazepam 2 MG/ML VIAL ONE (13:39)
[2021-11-13 14:11] LABS: Potassium 3.5 mmol/L (3.5-5.1)
[2021-11-14] MEDS ORDERED: LORazepam 2 MG/ML VIAL ONE (10:58)
[2021-11-14] MEDS ORDERED: RISPERIDONE 1 MG TABLET PO ONE (11:00)
[2021-11-15] MEDS ORDERED: LORazepam 2 MG/ML VIAL ONE (11:38)
[2021-11-15] MEDS ORDERED: RISPERIDONE 1 MG TABLET ONE (11:45)
[2021-11-16] MEDS ORDERED: LORAZEPAM 1 MG TABLET ONE (15:12)
[2021-11-16] MEDS ORDERED: RISPERIDONE 1 MG TABLET PO ONE (16:00)
[2021-11-17 12:58] LABS: Hematocrit 41.7 % (39.6-49.0); MPV 8.9 fL (7.6-11.3); RBC Red Blood Cell Count 4.81 M/uL (4.33-5.43)
[2021-11-17 15:24] VITALS: O2SAT 100
[2021-11-17 15:25] VITALS: BP 118/72; TEMP 97.7
== END 2021-11-17 15:05 ==
LOC: ER 03:37
DX: R45.851 Suicidal ideations (principal); F20.9 Schizophrenia, unspecified; Z20.822 Contact with and (suspected) exposure to COVID-19
CPT/HCPCS: 36415; 80048; 80076; 80307; 80320; 80329; 81003; 85025; 85027; 85610; 85730; 93005; 96372; 99285; J3486; J7030; U0003

== ENCOUNTER 2022-03-30 14:19 | Emergency (ER) | payer SELFPAY ==
--- OUTSIDE RECORDS SUMMARY | 2022-03-30 14:29 | XMS REPORT | Continuity of Care Document ---
:1990 Author Organization [facility] t Address [address] [place] [address] Care Team Providers Name Role Phone Pcp-None Primary Care Physician Unavailable YARI Attending Clinician Unavailable AMAURY COULTER Attending Clinician Unavailable JEANMARIE RAMON Attending Clinician Unavailable Anabel Masters Attending Clinician Unavailable DICK GENAO Attending Clinician Unavailable Hemal Ag Attending Clinician Unavailable Jose Gomez Attending Clinician Unavailable [place] Attending Clinician Unavailable [place] Attending Clinician Unavailable Physician, No Primary or Family Admitting Clinician Unavailreyna GREENBERG Admitting Clinician Unavailable [place] Admitting Clinician Unavailable Payers Payer Name Policy Type Policy Number Effective Date Expiration Date S ource Problems Condition Condition Condition Status Onset Resolution Last Treating Co mments Source Name Details Category Date Date Treatment Clinician Date Problem Problem [facility] Allergies, Adverse Reactions, Alerts Allergy Allergy Status Severity Reaction(s) Onset Inactive Treating Comm ents Source Name Type Date Date Clinician prometha DA Active U Unknown [facility] willy - 00:00: 00 [facility]ra [facility] aripipra DA Active U Unknown [facility] zole 8 00:00: 00 prometha DA Active U Unknown [facility] zine 8- 00:00: 00 aripipra DA Active U Unknown [facility] zole 8- 00:00: 00 prometha DA Active U Unknown [facility] zine 6- 00:00: 00 aripipra DA Active U Unknown [facility] zole 6 00:00: 00 prometha DA Active MO 2020-0 [facility] zine 3-05 [place] 00:00: d 00 [facility] aripipra DA Active SV 2020-0 [facility] zole 3-05 [place] 00:00: d 00 [facility] prometha DA Active MO TREMORS 2020-0 [facility] zine 3-05 [place] 00:00: d 00 [facility] aripipra DA Active SV DYSTONIC 2020-0 [facility] zole REACTION 3-05 [place] 00:00: d 00 [facility] prometha Drug Active [facility] Abilify Drug Active [facility] prometha Drug Active [facility] Abilify Drug Active [facility] prometha Drug Active [facility] prometha Drug Active [facility] Abilify Drug Active [facility] Abilify Drug Active [facility] prometha Drug Active [facility] Abilify Drug Active [facility] prometha Drug Active [facility] Abilify Drug Active [facility] Social History Social Habit Start Date Stop Date Quantity Comments Source Sex Assigned At [birth year] Female [facility] 00:00:00 00:00:00 Smoking Status Start Date Stop Date Source Unknown if ever smoked [facility] [employer] Medications This patient has no known medications. [...] kg BP Diastolic 2020-08-03 15:36:00 81 mm[Hg] [facility] BP Systolic 2020-08-03 15:36:00 114 mm[Hg] [facility] Heart Rate 2020-08-03 15:36:00 69 /min [facility] Respiratory rate 2020-08-03 15:36:00 18 /min [facility] Body Temperature 2020-08-03 15:36:00 98.7 [degF] [facility] BP Diastolic 2020-08-03 15:10:00 81 mm[Hg] [facility] BP Systolic 2020-08-03 15:10:00 114 mm[Hg] [facility] Heart Rate 2020-08-03 15:10:00 69 /min [facility] Respiratory rate 2020-08-03 15:10:00 18 /min [facility] Body Temperature 2020-08-03 15:10:00 98.7 [degF] [facility] Procedures This patient has no known procedures. Encounters Start End Encounter Admission Attending Care Care Encounter Source Date/Time Date/Time Type Type Clinicians Facility Department ID 2022-03-09 Emergency HFD HFD [id number] GAYE - 11:55:17 [facility] 2022-01-22 Outpatient [facility] [id number] [place] 17:40:51 [id number] [facility] 2021-12-05 Outpatient [facility] [id number] [place] 15:34:09 [id number] [facility] 2021-04-20 Outpatient CAROLYNN PRADHAN [id number] [facility] 22:53:11 [id number] [facility] 2019-09-01 Inpatient HCAPM KAYLEE [id number] [facility] 06:12:00 46 [facility] 2019-08-31 Inpatient HCAPM KAYLEE [id number] [facility] 19:06:00 66 [facility] 2022-03-21 2022-03-21 Outpatient LINDA_ [facility] [id number] [place] 00:00:00 00:00:00 [id number] [facility] 2022-03-09 2022-03-09 Outpatient CINDY_STEPHANI_ [facility] [id number] [place] 00:00:00 00:00:00 [id number] [facility] 2022-02-12 2022-02-13 Emergency [facility] [id number] [place] 08:44:00 20:25:00 [facility] 2022-02-12 2022-02-12 Emergency 1 YENNY, JEANMARIE [facility] [id number] [place] 08:44:00 08:44:00 [facility] 2022-02-11 2022-02-11 Emergency Emergency Af[place], [facility] [id number] [facility] 04:57:00 09:50:00 Anabel 71 2022-02-11 2022-02-11 Emergency [facility] [id number] [facility] 04:57:00 04:57:00 71 2022-02-09 2022-02-10 Emergency E BIRGIT [facility] [id number] [facility] 21:11:00 21:33:00 [facility] 2022-02-09 2022-02-09 Emergency [facility] [id number] [facility] 09:41:00 17:31:00 [facility] 2022-02-07 2022-02-07 Emergency Emergency Guirges, [facility] [id number] [facility] 11:37:00 20:30:00 Hemal 49 2022-02-07 2022-02-07 Emergency [facility] [id number] [facility] 11:37:00 11:37:00 49 2022-02-07 2022-02-07 Emergency Emergency [place], [facility] [id number] [facility] 00:06:00 07:50:00 Lukuman 29 2022-02-07 2022-02-07 Emergency Emergency [place], [facility] [id number] [facility] 00:06:00 00:06:00 Lukuman 29 2022-02-05 2022-02-05 Emergency Emergency Ham, Jose [facility] [id number] [facility] 18:15:00 21:41:00 61 2022-02-05 2022-02-05 Emergency Emergency Guirges, [facility] [id number] [facility] 14:52:00 17:19:00 Hemal 27 2022-02-05 2022-02-05 Emergency [facility] [id number] [facility] 14:52:00 14:52:00 27 2020-08-03 2020-08-03 [facility] [id number] [facility] 15:06:00 15:37:00 Emergency 36 S Room [facility] 2019-09-20 2019-09-[address] [facility] [id number] [place] 00:00:00 00:00:00 [facility] 2019-08-31 2019-08-31 Emergency [facility] [id number] Max 01:49:22 01:49:22 [facility] 2019-02-17 2019-02-[address] [facility] [id number] Max 07:34:17 07:34:17 [facility] 2019-02-17 2019-02-17 Emergency [facility] [id number] Max 02:21:51 02:21:51 [facility] 2019-01-21 2019-01-31 Inpatient 1 [place] [facility] PS[facility] [id number] St. 10:32:00 13:54:00 [facility] 2018-11-01 2018-11-09 Inpatient 1 [place] [facility] PSY [id number] St. 14:32:00 13:51:00 [facility] Results Test Description Test Time Test Comments Results Result Comments Source SARS-CoV-2 RNA Resp Ql VANE+probe 2022-02-12 14:18:35 Test Item Value Reference Range Interpretation Comme nts Hospitalized? (test code = Yes 41992-1) ICU? (test code = 56595-8) No Symptomatic as defined by CDC? No (test code = 43103-7) Employed in Healthcare? (test No code = 85579-1) Resident in a congregate care No setting (including nursing homes, residential care for people with intellectual and developmental disabilities, psychiatric treatment facilities, group homes, board and care homes, homeless penitentiary, foster care or other): (test code = 92623-0) SARS-CoV-2 RNA Resp Ql NOT DETECTED Not Detected INTER PRETATION: No VANE+probe (test [place] = [place] [address]-4) SARS-CoV-2 Kennedy navirus (COVID-19) were present in this patient's sample by this test. A no t detected result does not exclude the possibility of active infection with this virus due to other fa ctors that may affect the results such as a poorly col lected sample, viral t iters below the limit of de tection of the assay, and the infrequent poss ibility of inhibitors in t he sample. This result maria fernanda uld be interpreted in conjunction with clinical, radiographic, a nd other laboratory find ings and should not be u sed as the sole indicator of active infection with SARS-CoV-2 Coronavirus ([place] VID-19). COMMENT: This lilli real-time reverse transcriptase polymerase chain reaction (RT-PCR) test rapidly detects SARS-CoV-2 (COVID-19) virus from nasopharyngeal and nasal swab specimens. In accordance with the FDA's guidance document "Policy for Diagnostic Tests for Coronavirus Disease-2019 during the Public Health Emergency", this test was developed, and its performance characteristics were verified by the [facility] molecular diagnostics laboratory and is authorized for clinical diagnostic use. This laboratory is certified under the Clinical Laboratory Improvement Amendments (CLIA) as qualified to perform high complexity clinical laboratory testing.UA, Urinalysis Rflx Cult/[id number] 05:36:00 Test Item Value Reference Range Interpretation Comments Color,Urine (test code = UCOL) Yellow Yellow Clarity,Urine (test code = Clear Clear UCLAR) Ph, Urine (test code = UPH) 7.0 5.0-9.0 N Specific Inlet,Urine (test 1.025 1.005-1.030 N code = USG) Blood,Urine (test code = UBLD) Negative mg/dL Negative Protein,Urine (test code = 100 mg/dL Negative A UPRO) Glucose,Urine (UA) (test code Negative mg/dL Negative = UGLU) Ketones,Urine (test code = 80 mg/dL Negative A UKET) Nitrate,Urine (test code = Negative Negative UNIT) Bilirubin,Urine (test code = Negative mg/dL Negative UBIL) Urobilinogen,Urine (test code 1.0 E.U./dL Normal = UURO) Leukocyte Esterase,Urine (test Negative mg/dL Negative code = ULEU) UF REFLEXComplete Blood Count Auto [id number] 05:36:00 Test Item Value Reference Range Interpretation Comments White Blood Count (test code = 12.0 x10 3/uL 4.4-10.5 H WBCT) Red Blood Count (test code = 4.89 x10 6/uL 4.10-5.70 N RBC) Hemoglobin (test code = HGBT) 15.0 g/dL 13.4-17.4 N Hematocrit (test code = HCTT) 43.5 % 38.7-52.0 N Mean Corpuscular Volume (test 89.00 fL 80.00-100.00 N code = MCV) Mean Corpuscular Hemoglobin 30.7 pg 27.0-32.5 N (test code = MCH) Mean Corpuscular HGB Conc 34.50 g/dL 32.00-37.50 N (test code = MCHC) RDW Coefficient of Variation 13.4 % 11.5-14.5 N (test code = RDWCV) Platelet Count (test code = 270.0 x10 3/uL 140.0-440.0 N PLTT) Mean Platelet Volume (test 11.3 fL code = MPV) Immature Granulocytes % (Auto) 0.4 % 0.0-5.0 N (test code = IMMGRAN%) Neutrophils % (Auto) (test 82.3 % 36.0-70.0 H code = NE%) Lymphocytes % (Auto) (test 12.5 % 12.0-44.0 N code = LY%) Monocytes % (Auto) (test code 4.2 % 0.0-11.0 N = MO%) Eosinophils % (Auto) (test 0.1 % 0.0-7.0 N code = EO%) Basophils % (Auto) (test code 0.5 % 0.0-2.0 N = BA%) Immature Granulocytes # (Auto) 0.05 x10 3/uL (test code = IMMGRAN#) Neutrophils # (Auto) (test 9.8 x10 3/uL 1.6-7.4 H code = NE#) Lymphocytes # (Auto) (test 1.49 x10 3/uL 0.50-4.60 N code = LY#) Monocytes # (Auto) (test code 0.50 x10 3/uL 0.00-1.20 N = MO#) Eosinophils # (Auto) (test 0.01 x10 3/uL 0.00-0.74 N code = EO#) Basophils # (Auto) (test code 0.06 x10 3/uL 0.00-0.21 N = BA#) nRBC Abs (test code = NRBCA) 0 nRBC Pct (test code = NRBCP) 0 % Urine [id number] 05:36:00 Test Item Value Reference Range Interpretation Comments RBC,Urine (test code = URBC.LOG HAUL CH[employer] FEEDER) 0-2 /HPF 0-2 WBC,Urine (test code = UWBC.LOG [employer]EDER) 0-5 /HPF 0-5 Bacteria,Urine (test code = Few /HPF None Seen A UBACT.LOG [employer]EDER) Squamous Epithelial Cell,Urine (test 0-5 /HPF 0-5 code = USQEPI.LOG [employer]ER) Amorphous Crystals,Urine (test code Few /HPF None Seen A = UAMSE) Hyaline Casts,Urine (test code = 0-2 None Seen A UHYALC.XX) Granular Casts,Urine (test code = 0-1 None Seen A UGRANC.XX) UF REFLEXComprehensive Metabolic [id number] 05:36:00 Test Item Value Reference Range Interpretation Comments SODIUM (test code = NA) 141.0 mmol/L 136.0-145.0 N Potassium,K (test code = K) 3.8 mmol/L 3.0-5.1 N Chloride (test code = CL) 104 mmol/L 98-107 N Carbon Dioxide (test code = CO2) 29 mmol/L 20-31 N Anion Gap (test code = GAP) 8 mmol/L 5-15 N Blood Urea Nitrogen (test code = 9 mg/dL 9-23 N BUN) Creatinine (test code = CREATT) 1.06 mg/dL 0.55-1.02 H Creatinine Clr Calc Pharmacy 96.79 mL/min (test code = CRCLPHA) Estimated GFR ( Stacey > 60 mL/min/1.73m2 (test code = EGFRAA) Estimated GFR (Non Afr Stacey > 60 mL/min/1.73m2 (test code = EGFRNAA) BUN/Creatinine Ratio (test code 8 ratio 10-20 L = BCRATIO) Glucose (test code = GLU) 99 mg/dL 74-106 N Osmolality,Calculated (test code 290.2 = OSMOC) Calcium (test code = CA) 9.8 mg/dL 8.3-10.6 N Bilirubin,Total (test code = 0.6 mg/dL 0.2-1.1 N BILIT) Aspartate Amino Transferase 25 U/L 0-34 N (test code = AST) Alanine Aminotransferase (test 21 U/L 10-49 N code = ALT) Total Protein (test code = TP) 7.1 g/dL 5.7-8.2 N Albumin Level (test code = ALB) 5.3 g/dL 3.2-4.8 H Globulin (test code = GLOB) 1.8 mg/dL 2.3-3.5 L Albumin/Globulin Ratio (test 2.9 ratio 0.8-2.0 H code = AGRATIO) Alkaline Phosphatase (test code 74 U/L 46-116 N = ALP) Ethanol [id number] 05:36:00 Test Item Value Reference Range Interpretation Comments Ethanol (test code 3 mg/dL The pharm acological = ETOH) response to blo od alcohol levels mayvary from individual to i ndividual. The fatal giovanna ntrationhas been reported t o be >400mg/dL. Drug Screen,[id number] 05:36:00 Test Item Value Reference Range Interpretation Comments PCP Phencyclidine Positive Negative A Screen,Urine (test code = PCPU) Amphetamine Positive Negative A Confirmation by GC/MS Screen,Urine (test code not routinely = AMPU) performed. Ifconfirmation is required, an or ashish must be placed. Methadone Screen,Urine Negative Negative (test code = METHU) Opiate Screen,Urine Negative Negative (test code = UOPIS) Barbituates Negative Negative Screen,Urine (test code = BARBU) Benzodiazepines Positive Negative A Screen,Urine (test code = UBENZS) Cocaine Screen,Urine Negative Negative (test code = UCOCS) Cannabinoid Negative Negative Screen,Urine (test code = UTHCS) Propoxyphene Screen, Negative Negative Urine (test code = UPROP) Coronavirus PCR, COVID19 [id number] 05:36:00 Test Item Value Reference Range Interpretation Comments Coronavirus PCR, COVID19 Rapid (test code = SARSCOV2) Coronavirus PCR, COVID19 Reference Range: Rapid (test code = Negative ANHKGWL55.1) SARS-CoV-2 PCR Result: Negative by RT-PCR (test code = SARS-CoV-2 PCR Result:) COVID-19 Status: AsymptomaticUA, Urinalysis Rflx [id number] 12:22:00 Test Item Value Reference Range Interpretation Comments Color,Urine (test code = UCOL) Yellow Yellow Clarity,Urine (test code = Clear Clear UCLAR) Ph, Urine (test code = UPH) 5.5 5.0-9.0 N Specific Inlet,Urine (test 1.015 1.005-1.030 N code = USG) Blood,Urine (test code = UBLD) Negative mg/dL Negative Protein,Urine (test code = 30 mg/dL Negative A UPRO) Glucose,Urine (UA) (test code Negative mg/dL Negative = UGLU) Ketones,Urine (test code = Trace mg/dL Negative A UKET) Nitrate,Urine (test code = Negative Negative UNIT) Bilirubin,Urine (test code = Negative mg/dL Negative UBIL) Urobilinogen,Urine (test code 0.2 E.U./dL Normal = UURO) Leukocyte Esterase,Urine (test Negative mg/dL Negative code = ULEU) UF REFLEXUF REFLEXUrine [id number] 12:22:00 Test Item Value Reference Range Interpretation Comments RBC,Urine (test code = URBCUF) None Seen /HPF 0-2 WBC,Urine (test code = UWBCUF) 0-5 /HPF 0-5 Epithelial Cell,Urine (test 0-5 /HPF 0-5 code = UECUF) Casts,Urine (test code = 0-5 /LPF None Seen UCASTUF) Bacteria,Urine (test code = None Seen /hpf None Seen UBACTUF) UF REFLEXUF REFLEXDrug Screen,[id number] 12:22:00 Test Item Value Reference Range Interpretation Comments PCP Phencyclidine Positive Negative A Screen,Urine (test code = PCPU) Amphetamine Positive Negative A Confirmation by GC/MS Screen,Urine (test code not routinely = AMPU) performed. Ifconfirmation is required, an or ashish must be placed. Methadone Screen,Urine Negative Negative (test code = METHU) Opiate Screen,Urine Negative Negative (test code = UOPIS) Barbituates Negative Negative Screen,Urine (test code = BARBU) Benzodiazepines Negative Negative Screen,Urine (test code = UBENZS) Cocaine Screen,Urine Negative Negative (test code = UCOCS) Cannabinoid Negative Negative Screen,Urine (test code = UTHCS) Propoxyphene Screen, Negative Negative Urine (test code = UPROP) Complete Blood Count Auto [id number] 11:59:00 Test Item Value Reference Range Interpretation Comments White Blood Count (test code = 12.0 x10 3/uL 4.4-10.5 H WBCT) Red Blood Count (test code = 4.48 x10 6/uL 4.10-5.70 N RBC) Hemoglobin (test code = HGBT) 13.7 g/dL 13.4-17.4 N Hematocrit (test code = HCTT) 39.4 % 38.7-52.0 N Mean Corpuscular Volume (test 87.90 fL 80.00-100.00 N code = MCV) Mean Corpuscular Hemoglobin 30.6 pg 27.0-32.5 N (test code = MCH) Mean Corpuscular HGB Conc 34.80 g/dL 32.00-37.50 N (test code = MCHC) RDW Coefficient of Variation 13.9 % 11.5-14.5 N (test code = RDWCV) Platelet Count (test code = 270.0 x10 3/uL 140.0-440.0 N PLTT) Mean Platelet Volume (test 11.0 fL code = MPV) Immature Granulocytes % (Auto) 0.5 % 0.0-5.0 N (test code = IMMGRAN%) Neutrophils % (Auto) (test 77.6 % 36.0-70.0 H code = NE%) Lymphocytes % (Auto) (test 13.8 % 12.0-44.0 N code = LY%) Monocytes % (Auto) (test code 7.4 % 0.0-11.0 N = MO%) Eosinophils % (Auto) (test 0.2 % 0.0-7.0 N code = EO%) Basophils % (Auto) (test code 0.5 % 0.0-2.0 N = BA%) Immature Granulocytes # (Auto) 0.06 x10 3/uL (test code = IMMGRAN#) Neutrophils # (Auto) (test 9.3 x10 3/uL 1.6-7.4 H code = NE#) Lymphocytes # (Auto) (test 1.65 x10 3/uL 0.50-4.60 N code = LY#) Monocytes # (Auto) (test code 0.89 x10 3/uL 0.00-1.20 N = MO#) Eosinophils # (Auto) (test 0.02 x10 3/uL 0.00-0.74 N code = EO#) Basophils # (Auto) (test code 0.06 x10 3/uL 0.00-0.21 N = BA#) nRBC Abs (test code = NRBCA) 0 nRBC Pct (test code = NRBCP) 0 % Comprehensive Metabolic [id number] 11:59:00 Test Item Value Reference Range Interpretation Comments SODIUM (test code = NA) 143.0 mmol/L 136.0-145.0 N Potassium,K (test code = K) 3.4 mmol/L 3.0-5.1 N Chloride (test code = CL) 110 mmol/L 98-107 H Carbon Dioxide (test code = CO2) 24 mmol/L 20-31 N Anion Gap (test code = GAP) 9 mmol/L 5-15 N Blood Urea Nitrogen (test code = 7 mg/dL 9-23 L BUN) Creatinine (test code = CREATT) 1.05 mg/dL 0.55-1.02 H Creatinine Clr Calc Pharmacy 97.71 mL/min (test code = CRCLPHA) Estimated GFR ( Stacey > 60 mL/min/1.73m2 (test code = EGFRAA) Estimated GFR (Non Afr Stacey > 60 mL/min/1.73m2 (test code = EGFRNAA) BUN/Creatinine Ratio (test code 7 ratio 10-20 L = BCRATIO) Glucose (test code = GLU) 123 mg/dL 74-106 H Osmolality,Calculated (test code 294.5 = OSMOC) Calcium (test code = CA) 8.8 mg/dL 8.3-10.6 N Bilirubin,Total (test code = 0.6 mg/dL 0.2-1.1 N BILIT) Aspartate Amino Transferase 27 U/L 0-34 N (test code = AST) Alanine Aminotransferase (test 23 U/L 10-49 N code = ALT) Total Protein (test code = TP) 6.6 g/dL 5.7-8.2 N Albumin Level (test code = ALB) 4.6 g/dL 3.2-4.8 N Globulin (test code = GLOB) 2.0 mg/dL 2.3-3.5 L Albumin/Globulin Ratio (test 2.3 ratio 0.8-2.0 H code = AGRATIO) Alkaline Phosphatase (test code 68 U/L 46-116 N = ALP) Ethanol [id number] 11:59:00 Test Item Value Reference Range Interpretation Comments Ethanol (test code < 3 mg/dL The pharm acological = ETOH) response to blo od alcohol levels mayvary from individual to i ndividual. The fatal giovanna ntrationhas been reported t o be >400mg/dL. UA, Urinalysis Rflx [id number] 04:55:00 Test Item Value Reference Range Interpretation Comments Color,Urine (test code = UCOL) Yellow Yellow Clarity,Urine (test code = Clear Clear UCLAR) Ph, Urine (test code = UPH) 5.5 5.0-9.0 N Specific Inlet,Urine (test 1.010 1.005-1.030 N code = USG) Blood,Urine (test code = UBLD) Negative mg/dL Negative Protein,Urine (test code = Negative mg/dL Negative UPRO) Glucose,Urine (UA) (test code 100 mg/dL Negative A = UGLU) Ketones,Urine (test code = Trace mg/dL Negative A UKET) Nitrate,Urine (test code = Negative Negative UNIT) Bilirubin,Urine (test code = Negative mg/dL Negative UBIL) Urobilinogen,Urine (test code 0.2 E.U./dL Normal = UURO) Leukocyte Esterase,Urine (test Negative mg/dL Negative code = ULEU) Drug Screen,[id number] 04:55:00 Test Item Value Reference Range Interpretation Comments PCP Phencyclidine Positive Negative A Screen,Urine (test code = PCPU) Amphetamine Positive Negative A Confirmation by GC/MS Screen,Urine (test code not routinely = AMPU) performed. Ifconfirmation is required, an or ashish must be placed. Methadone Screen,Urine Negative Negative (test code = METHU) Opiate Screen,Urine Negative Negative (test code = UOPIS) Barbituates Negative Negative Screen,Urine (test code = BARBU) Benzodiazepines Negative Negative Screen,Urine (test code = UBENZS) Cocaine Screen,Urine Negative Negative (test code = UCOCS) Cannabinoid Negative Negative Screen,Urine (test code = UTHCS) Propoxyphene Screen, Negative Negative Urine (test code = UPROP) Lactic [id number] 04:50:00 Test Item Value Reference Range Interpretation Comments Lactic Acid (test code = LACTIC) 1.0 mmol/L 0.5-2.0 N Troponin I High [id number] 04:40:00 Test Item Value Reference Range Interpretation Comments Troponin I High 29.77 pg/mL 0-45 N Interpretive Comments:* Sensitivity (test The 99th p ercentile URL code = TROPHS) for the assay is <45 pg/ml.* A rise and fall in Troponin I w ith at least onevalue above the 99th percen tile with clinical e vidence ofmyocardial is chemia would support a diagnosis of AM I. Adelta of at le ast 20% is recommended to assess acutecha nges in results above t he 99th percentile in serialmeasureme nts.* High concentrat ions of Biotin, a water soluble B-vitamin(B7) u sed in over the counte r supplements and fortherapeutic purposes, has b een tested and show s <10% changeup to 3,5 00 ng/mL Biotin using th is Siemens Atellic a TNIHassay. Resu lts obtained should be evaluated in conjunctionwith clinical findin gs. Creatine [id number] 01:15:00 Test Item Value Reference Range Interpretation Comments Creatine Kinase (test code = CK) 477 U/L 46-171 H Troponin I High [id number] 01:15:00 Test Item Value Reference Range Interpretation Comments Troponin I High 16.40 pg/mL 0-45 N Interpretive Comments:* Sensitivity (test The 99th p ercentile URL code = TROPHS) for the assay is <45 pg/ml.* A rise and fall in Troponin I w ith at least onevalue above the 99th percen tile with clinical e vidence ofmyocardial is chemia would support a diagnosis of AM I. Adelta of at le ast 20% is recommended to assess acutecha nges in results above t he 99th percentile in serialmeasureme nts.* High concentrat ions of Biotin, a water soluble B-vitamin(B7) u sed in over the counte r supplements and fortherapeutic purposes, has b een tested and show s <10% changeup to 3,5 00 ng/mL Biotin using th is Siemens Atellic a TNIHassay. Resu lts obtained should be evaluated in conjunctionwith clinical findin gs. Lactic [id number] 01:15:00 Test Item Value Reference Range Interpretation Comments Lactic Acid (test 4.5 mmol/L 0.5-2.0 HH Critical v alue called code = LACTIC) to walter schuster ck by amber marcus[] on: 02/07/22 at 021 4by [id number]. Lactic Acid Collected YProthrombin Time [id number] 01:15:00 Test Item Value Reference Range Interpretation Comments Prothrombin Time 11.0 Seconds 9.3-12.1 N (test code = PT) INR (test code = 1.0 ratio 0.9-1.2 N Reference I nterval is INR) for non-anticoagula lázaro patients.Sugges lázaro INR Therapeutic Range for Vitamin K antogonistthera py:LEV ELS OFTHERAPY INDICATIONS TAR GET INR RANGEStanda rd Dose Venous Thrombosis, 2.0 - 3.0 Atrial Fibrilla tion, Pulmonary Embolism.High D ose Valvular Heart Disease, 2.5 - 3.5 Mechanical Hear t, Intracardiac Thrombosis. Blood [id number] 01:15:00 Test Item Value Reference Range Interpretation Comments Blood Culture (test NO GROWTH AFTER 5 DAYS code = BC) Blood [id number] 01:15:00 Test Item Value Reference Range Interpretation Comments Blood Culture (test NO GROWTH AFTER 5 DAYS code = BC) Complete Blood Count Auto [id number] 00:39:00 Test Item Value Reference Range Interpretation Comments White Blood Count (test code = 15.5 x10 3/uL 4.4-10.5 H WBCT) Red Blood Count (test code = 5.03 x10 6/uL 4.10-5.70 N RBC) Hemoglobin (test code = HGBT) 15.2 g/dL 13.4-17.4 N Hematocrit (test code = HCTT) 44.1 % 38.7-52.0 N Mean Corpuscular Volume (test 87.70 fL 80.00-100.00 N code = MCV) Mean Corpuscular Hemoglobin 30.2 pg 27.0-32.5 N (test code = MCH) Mean Corpuscular HGB Conc 34.50 g/dL 32.00-37.50 N (test code = MCHC) RDW Coefficient of Variation 13.6 % 11.5-14.5 N (test code = RDWCV) Platelet Count (test code = 308.0 x10 3/uL 140.0-440.0 N PLTT) Mean Platelet Volume (test 11.2 fL code = MPV) Immature Granulocytes % (Auto) 0.5 % 0.0-5.0 N (test code = IMMGRAN%) Neutrophils % (Auto) (test 90.5 % 36.0-70.0 H code = NE%) Lymphocytes % (Auto) (test 4.1 % 12.0-44.0 L code = LY%) Monocytes % (Auto) (test code 4.4 % 0.0-11.0 N = MO%) Eosinophils % (Auto) (test 0.1 % 0.0-7.0 N code = EO%) Basophils % (Auto) (test code 0.4 % 0.0-2.0 N = BA%) Immature Granulocytes # (Auto) 0.08 x10 3/uL (test code = IMMGRAN#) Neutrophils # (Auto) (test 14.0 x10 3/uL 1.6-7.4 H code = NE#) Lymphocytes # (Auto) (test 0.64 x10 3/uL 0.50-4.60 N code = LY#) Monocytes # (Auto) (test code 0.68 x10 3/uL 0.00-1.20 N = MO#) Eosinophils # (Auto) (test 0.01 x10 3/uL 0.00-0.74 N code = EO#) Basophils # (Auto) (test code 0.06 x10 3/uL 0.00-0.21 N = BA#) nRBC Abs (test code = NRBCA) 0 nRBC Pct (test code = NRBCP) 0 % Comprehensive Metabolic [id number] 00:39:00 Test Item Value Reference Range Interpretation Comments SODIUM (test code = NA) 144.0 mmol/L 136.0-145.0 N Potassium,K (test code = K) 4.4 mmol/L 3.0-5.1 N Chloride (test code = CL) 112 mmol/L 98-107 H Carbon Dioxide (test code = CO2) 23 mmol/L 20-31 N Anion Gap (test code = GAP) 9 mmol/L 5-15 N Blood Urea Nitrogen (test code = 15 mg/dL 9-23 N BUN) Creatinine (test code = CREATT) 1.45 mg/dL 0.55-1.02 H Creatinine Clr Calc Pharmacy 77.18 mL/min (test code = CRCLPHA) Estimated GFR ( Stacey > 60 mL/min/1.73m2 (test code = EGFRAA) Estimated GFR (Non Afr Stacey > 60 mL/min/1.73m2 (test code = EGFRNAA) BUN/Creatinine Ratio (test code 10 ratio 10-20 N = BCRATIO) Glucose (test code = GLU) 230 mg/dL 74-106 H Osmolality,Calculated (test code 305.3 = OSMOC) Calcium (test code = CA) 9.0 mg/dL 8.3-10.6 N Bilirubin,Total (test code = 0.5 mg/dL 0.2-1.1 N BILIT) Aspartate Amino Transferase 33 U/L 0-34 N (test code = AST) Alanine Aminotransferase (test 23 U/L 10-49 N code = ALT) Total Protein (test code = TP) 7.2 g/dL 5.7-8.2 N Albumin Level (test code = ALB) 5.1 g/dL 3.2-4.8 H Globulin (test code = GLOB) 2.1 mg/dL 2.3-3.5 L Albumin/Globulin Ratio (test 2.4 ratio 0.8-2.0 H code = AGRATIO) Alkaline Phosphatase (test code 73 U/L 46-116 N = ALP) Ethanol [id number] 00:39:00 Test Item Value Reference Range Interpretation Comments Ethanol (test code < 3 mg/dL The pharm acological = ETOH) response to blo od alcohol levels mayvary from individual to i ndividual. The fatal giovanna ntrationhas been reported t o be >400mg/dL. Coronavirus PCR, COVID19 [id number] 00:20:00 Test Item Value Reference Range Interpretation Comments Coronavirus PCR, For use under Emergency COVID19 Rapid (test Use Authorization (EUA) code = SARSCOV2) only. Coronavirus PCR, Reference Range: COVID19 Rapid (test Negative code = ESZAQBO79.1) SARS-CoV-2 PCR Result: Negative by RT-PCR (test code = SARS-CoV-2 PCR Result:) COVID-19 Status: AsymptomaticUrine [id number] 15:17:00 Test Item Value Reference Range Interpretation Comments RBC,Urine (test code = URBCUF) 0-2 /HPF 0-2 WBC,Urine (test code = UWBCUF) 6-10 /HPF 0-5 A Epithelial Cell,Urine (test None Seen /HPF 0-5 code = UECUF) Casts,Urine (test code = None Seen /LPF None Seen UCASTUF) Bacteria,Urine (test code = None Seen /hpf None Seen UBACTUF) UF REFLEXUF REFLEXComprehensive Metabolic [id number] 15:17:00 Test Item Value Reference Range Interpretation Comments SODIUM (test code = NA) 141.0 mmol/L 136.0-145.0 N Potassium,K (test code = K) 4.0 mmol/L 3.0-5.1 N Chloride (test code = CL) 107 mmol/L 98-107 N Carbon Dioxide (test code = 24 mmol/L 20-31 N CO2) Anion Gap (test code = GAP) 10 mmol/L 5-15 N Blood Urea Nitrogen (test code 11 mg/dL 9-23 N = BUN) Creatinine (test code = CREATT) 0.90 mg/dL 0.55-1.02 N Creatinine Clr Calc Pharmacy 124.34 mL/min (test code = CRCLPHA) Estimated GFR ( Stacey > 60 mL/min/1.73m2 (test code = EGFRAA) Estimated GFR (Non Afr Stacey > 60 mL/min/1.73m2 (test code = EGFRNAA) BUN/Creatinine Ratio (test code 12 ratio 10-20 N = BCRATIO) Glucose (test code = GLU) 112 mg/dL 74-106 H Osmolality,Calculated (test 291.9 code = OSMOC) Calcium (test code = CA) 9.4 mg/dL 8.3-10.6 N Bilirubin,Total (test code = 0.4 mg/dL 0.2-1.1 N BILIT) Aspartate Amino Transferase 15 U/L 0-34 N (test code = AST) Alanine Aminotransferase (test 18 U/L 10-49 N code = ALT) Total Protein (test code = TP) 6.7 g/dL 5.7-8.2 N Albumin Level (test code = ALB) 4.7 g/dL 3.2-4.8 N Globulin (test code = GLOB) 2.0 mg/dL 2.3-3.5 L Albumin/Globulin Ratio (test 2.4 ratio 0.8-2.0 H code = AGRATIO) Alkaline Phosphatase (test code 69 U/L 46-116 N = ALP) Ethanol [id number] 15:17:00 Test Item Value Reference Range Interpretation Comments Ethanol (test code < 3 mg/dL The pharm acological = ETOH) response to blo od alcohol levels mayvary from individual to i ndividual. The fatal giovanna ntrationhas been reported t o be >400mg/dL. Coronavirus PCR, COVID19 [id number] 15:17:00 Test Item Value Reference Range Interpretation Comments Coronavirus PCR, For use under Emergency COVID19 Rapid (test Use Authorization (EUA) code = SARSCOV2) only. Coronavirus PCR, Reference Range: COVID19 Rapid (test Negative code = GVEQMGC30.1) SARS-CoV-2 PCR Result: Negative by RT-PCR (test code = SARS-CoV-2 PCR Result:) COVID-19 Status: AsymptomaticComplete Blood Count Auto [id number] 15:17:00 Test Item Value Reference Range Interpretation Comments White Blood Count (test code = 10.8 x10 3/uL 4.4-10.5 H WBCT) Red Blood Count (test code = 4.65 x10 6/uL 4.10-5.70 N RBC) Hemoglobin (test code = HGBT) 13.8 g/dL 13.4-17.4 N Hematocrit (test code = HCTT) 41.6 % 38.7-52.0 N Mean Corpuscular Volume (test 89.50 fL 80.00-100.00 N code = MCV) Mean Corpuscular Hemoglobin 29.7 pg 27.0-32.5 N (test code = MCH) Mean Corpuscular HGB Conc 33.20 g/dL 32.00-37.50 N (test code = MCHC) RDW Coefficient of Variation 13.6 % 11.5-14.5 N (test code = RDWCV) Platelet Count (test code = 284.0 x10 3/uL 140.0-440.0 N PLTT) Mean Platelet Volume (test 11.7 fL code = MPV) Immature Granulocytes % (Auto) 0.3 % 0.0-5.0 N (test code = IMMGRAN%) Neutrophils % (Auto) (test 86.5 % 36.0-70.0 H code = NE%) Lymphocytes % (Auto) (test 9.5 % 12.0-44.0 L code = LY%) Monocytes % (Auto) (test code 3.2 % 0.0-11.0 N = MO%) Eosinophils % (Auto) (test 0.0 % 0.0-7.0 N code = EO%) Basophils % (Auto) (test code 0.5 % 0.0-2.0 N = BA%) Immature Granulocytes # (Auto) 0.03 x10 3/uL (test code = IMMGRAN#) Neutrophils # (Auto) (test 9.4 x10 3/uL 1.6-7.4 H code = NE#) Lymphocytes # (Auto) (test 1.03 x10 3/uL 0.50-4.60 N code = LY#) Monocytes # (Auto) (test code 0.35 x10 3/uL 0.00-1.20 N = MO#) Eosinophils # (Auto) (test 0.00 x10 3/uL 0.00-0.74 N code = EO#) Basophils # (Auto) (test code 0.05 x10 3/uL 0.00-0.21 N = BA#) nRBC Abs (test code = NRBCA) 0 nRBC Pct (test code = NRBCP) 0 % Drug Screen,[id number] 15:17:00 Test Item Value Reference Range Interpretation Comments PCP Phencyclidine Positive Negative A Screen,Urine (test code = PCPU) Amphetamine Positive Negative A Confirmation by GC/MS Screen,Urine (test code not routinely = AMPU) performed. Ifconfirmation is required, an or ashsih must be placed. Methadone Screen,Urine Negative Negative (test code = METHU) Opiate Screen,Urine Negative Negative (test code = UOPIS) Barbituates Negative Negative Screen,Urine (test code = BARBU) Benzodiazepines Positive Negative A Screen,Urine (test code = UBENZS) Cocaine Screen,Urine Negative Negative (test code = UCOCS) Cannabinoid Positive Negative A Screen,Urine (test code = UTHCS) Propoxyphene Screen, Negative Negative Urine (test code = UPROP) UA, Urinalysis Rflx Cult/[id number] 15:17:00 Test Item Value Reference Range Interpretation Comments Color,Urine (test code = UCOL) Yellow Yellow Clarity,Urine (test code = Clear Clear UCLAR) Ph, Urine (test code = UPH) 6.0 5.0-9.0 N Specific Inlet,Urine (test >= 1.030 1.005-1.030 N code = USG) Blood,Urine (test code = UBLD) Negative mg/dL Negative Protein,Urine (test code = 30 mg/dL Negative A UPRO) Glucose,Urine (UA) (test code Negative mg/dL Negative = UGLU) Ketones,Urine (test code = 15 mg/dL Negative A UKET) Nitrate,Urine (test code = Negative Negative UNIT) Bilirubin,Urine (test code = Negative mg/dL Negative UBIL) Urobilinogen,Urine (test code 1.0 E.U./dL Normal = UURO) Leukocyte Esterase,Urine (test Negative mg/dL Negative code = ULEU) UF REFLEXUF REFLEXBASIC METABOLIC [id number] 15:01:00 Test Item Value Reference Range Interpretation [...] 8.4 MG/DL 8.5-10.1 L Last Dose Date: 06/28/00Las Dose Time: 0000HEPATIC FUNCTION [id number] 15:01:00 Test Item Value Reference Range Interpretation [...] N code = ALKP) Last Dose Date: 06/28/00Las Dose Time: [id number] 15:01:00 Test Item Value Reference Range Interpretation Comments ACETAMINOPHEN (test code = ACET) < 2.0 mcG/ML 10.0-30.0 L Last Dose Date: 06/28/00Las Dose Time: [id number] 15:01:00 Test Item Value Reference Range Interpretation Comments ALCOHOL (test code = ALC) < 3 MG/DL 0-10 N Last Dose Date: 06/28/00Las Dose Time: [id number] 07:32:00 Test Item Value Reference Range Interpretation Comments SALICYLATE (test code = ISA) < 1.7 MG/DL 2.8-20.0 THER L BASIC METABOLIC [id number] 07:24:00 Test Item Value Reference Range Interpretation [...] Dose Date: 06/28/00 Dose Time: HEPATIC FUNCTION [id number] 07:24:00 Test Item Value Reference Range Interpretation [...] N code = ALKP) Last Dose Date: 06/28/00Las Dose Time: [id number] 07:24:00 Test Item Value Reference Range Interpretation Comments ACETAMINOPHEN (test code = ACET) mcG/ML 10.0-30.0 Last Dose Date: 06/28/00Las Dose Time: [id number] 07:24:00 Test Item Value Reference Range Interpretation Comments ALCOHOL (test code = ALC) < 3 MG/DL 0-10 N Last Dose Date: 06/28/00Las Dose Time: 0000UA RFLX MICR CULT IF [...] for culture: Suprapubic PainDRUGS OF ABUSE SCREEN [id number] 06:55:00 Test Item Value Reference Range Interpretation [...] culture: Suprapubic PainUA RFLX MICR CULT IF [id number] 06:44:00 Test Item Value Reference Range Interpretation [...] for culture: Suprapubic PainDRUGS OF ABUSE SCREEN [id number] 06:44:00 Test Item Value Reference Range Interpretation [...] culture: Suprapubic PainUA RFLX MICR CULT IF [id number] 06:43:00 Test Item Value Reference Range Interpretation [...] for culture: Suprapubic PainDRUGS OF ABUSE SCREEN [id number] 06:43:00 Test Item Value Reference Range Interpretation [...] CLEAN CATCHIndication for culture: Suprapubic PainCBC W/AUTO [id number] 06:40:00 Test Item Value Reference Range Interpretation [...] = NO DIFF/SCN CRITERIA MDIFF) CBC W/AUTO [id number] 21:39:00 Test Item Value Reference Range Interpretation [...] MANUAL DIFF REQUIRED NO DIFF/SCN CRITERIA SLIDE Rigo PARTIDA (test code = MDIFF) CONSISTA NT WITH AUTO DIFFERENTIAL. CBC W/AUTO [id number] 20:15:00 Test Item Value Reference Range Interpretation [...] code = DIFF/SCN CRITERIA MDIFF) COMPREHENSIVE METABOLIC [id number] 20:01:00 Test Item Value Reference Range Interpretation [...] N (test code = ALKP) Valproic Acid [id number] 08:10:30 Test Item Value Reference Range Interpretation Comments Valproic Acid Level (test code 94.1 ug/mL(g) 50.0-100.0 = Valproic Acid Level) Hemoglobin [id number] 09:40:02 Test Item Value Reference Range Interpretation Comments Hemoglobin A1c (test code 5.0 % 4.8-5.9 No n Diabetic = Hemoglobin A1c) 4.8-5.9%Di abetic <7.0% Valproic Acid [id number] 08:30:39 Test Item Value Reference Range Interpretation Comments Valproic Acid Level (test code 120.3 ug/mL(g) 50.0-100.0 H = Valproic Acid Level) RPR [id number] 06:07:29 Test Item Value Reference Range Interpretation Comments RPR Qual (test code = RPR Qual) Non-Reactive Non-Reactive Reactive Control (test code = Reactive Reactive Control) Weak Reactive Control (test Weak Reactive code = Weak Reactive Control) Non-Reactive Control (test code Non-Reactive = Non-Reactive Control) Lot # (test code = Lot #) [id number] N Expiration Dt (test code = 10.31.2019 N Expiration Dt) Thyroid Stimulating [id number] 02:34:05 Test Item Value Reference Range Interpretation Comments TSH (test code = TSH) 1.290 mIU/mL 0.270-4.200 Lipid [id number] 02:16:21 Test Item Value Reference Range Interpretation Comments Cholesterol Total 127 mg/dL 0-200 RISK OF HE ART (test code = DISEASEPublishe d by Cholesterol Total) [place] [employer] Dottie lyte Optimal Borderl ine Increased RiskC HOL <200 200-239 >240TRI G <150 150-199 >200HDL Male >60 <40HDL Fema le >60 <50LDL <100 130 -159 >160LDL Near [facility] is 100-129 Triglycerides (test 78 mg/dL 9-200 [...] LDL/HDL Ratio=L DL Calc/HDL Chol Comprehensive Metabolic [id number] 12:18:35 Test Item Value Reference Range Interpretation [...] A/G 2.0 ratio N Ratio) Comprehensive Metabolic [id number] 12:18:35 Test Item Value Reference Range Interpretation [...] the National Kidney Foundation, http://nkdep.ni h.gov Alcohol [id number] 12:18:35 Test Item Value Reference Range Interpretation Comments Ethanol Level (test <0.00 g/dL 0.00-0.01 Intoxica lázaro 0.080 g/dL code = Ethanol or more Level) Ethanol Inst (test <0 N code = Ethanol Inst) Comprehensive Metabolic [id number] 12:18:35 Test Item Value Reference Range Interpretation [...] ag e have not been validated by [facility] MDRD study and should be interpreted wit [...] ag e have not been validated by [facility] MDRD study and should be interpreted wit h caution. eGFR R esult Interpretation: eGFR > or = 60 is in the Normal RangeeGF R < 60 may mean kid bekah diseaseeGFR < 1 5 may mean kidney failure Rang es recommended by the National Kidney Foundation, http://nkdep.ni h.gov Drugs of Abuse Urine [id number] 11:40:37 Test Item Value Reference Range Interpretation [...] Cannabinoid Screen Ur) Urinalysis with Culture, if [id number] 11:17:21 Test Item Value Reference Range Interpretation [...] Micro Ind?) rule GL_SJM_UA_MICRO _IN D Automated [id number] 11:14:20 Test Item Value Reference Range Interpretation Comments Neutro Auto (test code = Neutro 73.7 % 36.0-70.0 H Auto) Lymph Auto (test code = Lymph Auto) 18.8 % 12.0-44.0 [place] Auto (test code = [place] Auto) 5.0 % 0.0-11.0 Eos, Auto (test code = Eos, Auto) 1.4 % 0.0-7.0 Basophil Auto (test code = Basophil 0.7 % 0.0-2.0 Auto) Neutro Absolute (test code = Neutro 6.3 x10 1.6-7.4 Absolute) Lymph Absolute (test code = Lymph 1.61 x10 .50-4.60 Absolute) [place] Absolute (test code = [place] .43 x10 .00-1.20 Absolute) Eos Absolute (test code = Eos 0.12 x10 0.00-0.74 Absolute) Baso Absolute (test code = Baso 0.06 x10 0.00-0.21 Absolute) IG [id number] 11:14:20 Test Item Value Reference Range Interpretation Comments IG (test code = IG) 0.4 % 0.0-5.0 IG Abs (test code = IG Abs) 0 x10 N Complete Blood Count with [id number] 11:14:19 Test Item Value Reference Range Interpretation [...] (test code = IPF) 0 % N XR chest 1V [facility] [address] [place] [address] Patient Name: Carlos Wu Medical Record#: [id number] Address: [address] [place] [address] City/State/Zip: [place] [address]: Anabel bunch MD Insurance: Self Pay /Age/Sex: 1990/31/M Admit/Reg Date: 02/07/[address]: MD Jayme Rubio, PAC Location: [facility]/ PCP: Pcp-None,Md CHAVIS Date of Service: 02/07/22 Order (s): XR chest 1V CPT Code: 50749 Report Number: [id number] Reason for Exam: tachy Location: H3 CHEST X-RAY: AP frontal projection, one view, 02/07/2022 CLINICAL HISTORY: Tachycardia COMPARISON EXAMS: None of the chest FINDINGS: Heart, lungs, and mediastinal structures are within normal limits. No pneumonia or CHF. No abnormal air collection. No acute osseous finding. IMPRESSION: No acute finding Electronically signed by: Rina Navarro MD 02/07/2022 2:01 AM CDT Dictated By: Rina Navarro MD 02/07/22150 Signed By: Rina Lloyd MD 02/07/22 0204 TD/TT: 02/07/22150 Tech: [id number] cc: ISJOSEPH; PCPMI* MD Jayme Rubio PAC; Pcp-Md LANCE MainG ED Electrocardiogram [facility] [address] [place] [id number] Patient Name: Carlos Wu Medical Record#: [id number] Address: [address] [place] [address] City/State/Zip: [place] [address]: Anabel bunch MD Insurance: Self Pay /Age/Sex: 1990/31/M Admit/Reg Date: 02/07/[address]: CHANTAL Murray Location: [facility]/ PCP: Pcp-Md PALMIRA Main Date of Service: 02/07/22 Order (s): EKG ED Electrocardiogram CPT Code: 31308 Report Number: [id number] Reason for Exam: Chest Pain Sinus tachycardia LAE, consider biatrial enlargement Right axis deviation Artifact in lead(s) I,II,III,aVR,aVL,aVF,V1,V2,V3,V4,V5 Summary: Abnormal ECG Dictated By: Stephani Lambert MD 02/07/22 001 Signed By: Stephani Lambert MD 02/08/22 1447 TD/TT: 02/07/2214 Tech: [id number] cc: ISJOSEPH; PCPMI* MD Jayme Rubio PAC; Pcp-Md PALMIRA Main
[2022-03-30] MEDS ORDERED: ZIPRASIDONE MESYLA 20 MG/VIAL IM ONE (15:23)
[2022-03-30] MEDS ORDERED: LORazepam 2 MG/ML VIAL ONE (15:38)
[2022-03-30 16:02] LABS: Absolute Lymphocytes (CBC) 0.6 K/uL (0.7-4.9); Hematocrit 47.5 % (39.6-49.0); Lymphocytes % 3.4 % (15.3-44.8); MCV 86.7 fL (80-100); MPV 8.8 fL (7.6-11.3); RBC Red Blood Cell Count 5.48 M/uL (4.33-5.43)
[2022-03-30 16:04] LABS: Blood Morphology Comment NOT SEEN (NOT SEEN); Platelet Estimate ADEQ; Toxic Granulation 1+; White Blood Cell Scan OK (OK)
[2022-03-30 16:12] LABS: Protime INR 1.09
[2022-03-30 16:44] LABS: ALT/SGPT 32 U/L (12-78); AST/SGOT 46 U/L (15-37); Alkaline Phosphatase 98 U/L (45-117); BUN Blood Urea Nitrogen 17 mg/dL (7-18); Bicarbonate 22 mmol/L (21-32); Bilirubin Direct 0.1 mg/dL (0-0.2); Bilirubin Total 0.6 mg/dL (0.2-1.0); Glomerular Filtration Rate 62 ml/min (=/>90); Glucose Level 157 mg/dL (74-106); Potassium 3.8 mmol/L (3.5-5.1); Protein, Total 8.9 g/dL (6.4-8.2); Sodium Level 139 mmol/L (136-145)
[2022-03-30] MEDS ORDERED: NA CHLORIDE 0.9% 1,000 ML ONE ×2 (17:08→19:58)
[2022-03-30 17:35] LABS: SARS-CoV-2 Antigen Rapid Res Negative (Negative)
[2022-03-30 18:54] LABS: Urine Blood Trace-lysed (Negative); Urine Glucose Negative (Negative); Urine Protein 2+ (Negative); Urine Specific Gravity >=1.030 (1.005-1.030)
[2022-03-30 19:41] LABS: Barbiturates NEGATIVE (NEGATIVE); Benzodiazepines NEGATIVE (NEGATIVE); Cocaine NEGATIVE (NEGATIVE); METHAMPHETAM POSITIVE (NEGATIVE); Methadone NEGATIVE (NEGATIVE); Opiates NEGATIVE (NEGATIVE); Phencyclidine NEGATIVE (NEGATIVE); THC Cannibis NEGATIVE (NEGATIVE)
--- NOTE | 2022-03-30 19:48 | ER ---
Nurse's Notes [facility] Name: Carlos Walker Age: 31 yrs Sex: Male : 1990 Arrival Date: 03/30/2022 Time: 14:21 Bed 17 Private MD: Diagnosis: meth abuse;Drug abuse counseling and surveillance of drug abuser Presentation: 03/30 15:20 Chief complaint: Patient states: he is having current suicidal thoughts. patient states ap3 that he is hearing voices, but is unable to decipher what they are saying. patient also reports visual hallucinations. patient states that he has a plan to use a knife but does not have access to a knife. Coronavirus screen: At this time, the client does not indicate any symptoms associated with coronavirus-19. Ebola Screen: No symptoms or risks identified at this time. Initial Sepsis Screen: Does the patient meet any 2 criteria? No. Patient's initial sepsis screen is negative. Does the patient have a suspected source of infection? No. Patient's initial sepsis screen is negative. Onset of symptoms was March 30, 2022. 15:20 Method Of Arrival: Ambulatory ap3 15:20 Acuity: EDD 2 ap3 15:25 Risk Assessment: Do you want to hurt yourself or someone else? Patient reports ap3 desire/thoughts of hurting themselves or someone else. Provider notified. Triage Assessment: 15:23 General: Appears well nourished, Behavior is agitated. Pain: Denies pain. Neuro: Level ap3 of Consciousness is awake, alert, Oriented to person, place, time, Gait is steady, Speech is normal. Cardiovascular: Patient's skin is warm and dry. Respiratory: Airway is patent Respiratory effort is even, unlabored, Respiratory pattern is regular, symmetrical. Historical: - Allergies: 15:23 Abilify; ap3 15:23 Promethazine; ap3 - PMHx: 15:23 Schizophrenia; Bipolar disorder; ap3 - Immunization history:: Client reports receiving the 2nd dose of the Covid vaccine. - Social history:: Smoking status: Patient reports the use of cigarette tobacco products, smokes one pack cigarettes per day. Patient uses street drugs, Methamphetamine (Meth). Screenin:25 Abuse screen: Denies threats or abuse. Nutritional screening: No deficits noted. ap3 Tuberculosis screening: No symptoms or risk factors identified. 16:56 Fall Risk No fall in past 12 months (0 pts). Secondary diagnosis (15 points) IV access mb8 (20 points). Ambulatory Aid- None/Bed Rest/Nurse Assist (0 pts). Gait- Weak (10 pts.). Mental Status- Overestimates/Forgets Limitations (15 pts.). Total Mares Fall Scale indicates High Risk Score (45 or more points). Fall prevention measures have been instituted. Side Rails Up X 2 1:1 Attendant Assigned As available patient and family educated on Fall Prevention Program and Strategies. Assessment: 15:57 General: Patient ripped monitor wires off of the monitor and refused to go back to his [facility] room. Security and PD were called for patient and staff safety. Patient was afraid to go back to the room because of hallucinations per patient. Patient was agreeable to [facility]. Patient was talked to by myself, security, PD, and Dr. Sherman but would not go back to his room. After some time, patient was given [facility] IM and was able to be talked back to his room. Patient was agreeable to getting blood taken. . 16:55 Reassessment: Patient and/or family updated on plan of care and expected duration. Pain mb8 level reassessed. Patient is alert, oriented x 3, equal unlabored respirations, skin warm/dry/pink. Patient placed on spo2 and bp, patient sleeping, but will wake up for interventions. 17:35 Reassessment: Patient and/or family updated on plan of care and expected duration. Pain mb8 level reassessed. Patient is alert, oriented x 3, equal unlabored respirations, skin warm/dry/pink. 18:16 Reassessment: Patient and/or family updated on plan of care and expected duration. Pain mb8 level reassessed. Patient is alert, oriented x 3, equal unlabored respirations, skin warm/dry/pink. General: Patient's mom= Cheyanne Walker [phone]. 19:05 Reassessment: RECEIVED PT REPORT FROM DILLON SHEFFIELD. ASSUMED CARE OF PT. PT LYING IN BED jj7 NO DISTRESS NOTED. SITTER AT BEDSIDE. SITTER EMPTIED ALL POCKETS AND LABELS ALL PT'S BELONGINGS. FORM FILLED OUT AND SIGNED. . 19:49 Reassessment: [place] SCREENER AT BEDSIDE EVALUATING PT. [facility] 03/31 00:31 Reassessment: PT STANDING OUTSIDE ROOM STATING HE IS SEEING SNAKES TRYING TO ATTACK [facility] HIM. WANT SOMETHING FOR THE HALLUCINATIONS AND TO HELP HIM SLEEP. INFORMED. 00:33 Reassessment: PT NEEDS BLOOD DRAW TO RECHECK LABS. PT REFUSING BLOOD DRAW. PT IN [facility] HALLWAY BECOMING LOUD AND YELLING "I'M SEEING SNAKES AND THEY ARE TRYING TO ATTACK ME". YELLING HE IS TIRED OF PEOPLE MESSING WITH HIM. PT SPEAKING VERY AGGRESSIVE. SECURITY CALLED. ADDITIONAL NURSES, MD AND CHARGE NURSE AT BEDSIDE. CHARGE NURSE SPEAKING TO PT AND WAS ABLE TO GIVE PT ORDERED MEDS. PT STATES HE WANTS TO TALK TO THE MENTAL HEALTH OFFICER AT THE [facility]. PT STILL STANDING IN HALLWAY SPEAKING WITH SECURITY AND CAKE TESTER. 01:15 Reassessment: PT KEEPS GETTING IN AND OUT THE BED. PT APPEARS AGITATED. PT IN ROOM [facility] TRYING TO CLOSE CURTAIN AND DOOR. PT INFORMED DOOR AND CURTAIN MUST REMAIN OPEN. PT MOVED TO CORNER BEHIND CURTAIN TO MASTURBATE.. 01:26 Reassessment: PT OUTSIDE ROOM IN HALLWAY. STATES HE IS STILL SEEING SNAKES. PT IS CALM. [facility] 02:55 Reassessment: PT PACING AROUND ROOM. PT APPEARS AGITATED. SITTER ENCOURAGING PT TO GO [facility] BACK IN ROOM. PT COMING IN AND OUT THE ROOM. PT WALKING AROUND ER. SITTER ENCOURAGING PT TO GO BACK IN ROOM. MD INFORMED. 04:00 Reassessment: PT RESTING COMFORTABLY IN BED. NO DISTRESS NOTED. SITTER AT BEDSIDE. [facility] 05:30 Reassessment: PT STILL RESTING COMFORTABLY IN REST. NO DISTRESS NOTED. SITTER AT [facility] BEDSIDE. 07:17 Reassessment: REPORT GIVEN TO LUKE SHEFFIELD. [facility] 07:30 Musculoskeletal: No deficits noted. db 08:01 Reassessment: Patient appears in no apparent distress at this time. No changes from db previously documented assessment. Patient and/or family updated on plan of care and expected duration. Pain level reassessed. Patient is alert, oriented x 3, equal unlabored respirations, skin warm/dry/pink. General: Appears in no apparent distress. distressed, Behavior is calm, cooperative, appropriate for age, quiet. Neuro: No deficits noted. Cardiovascular: No deficits noted. Respiratory: No deficits noted. GI: No deficits noted. : No deficits noted. EENT: No deficits noted. Derm: No deficits noted. 08:02 Reassessment: Patient appears in no apparent distress at this time. Patient and/or ph family updated on plan of care and expected duration. Pain level reassessed. Patient is alert, oriented x 3, equal unlabored respirations, skin warm/dry/pink. Patient asleep with sitter. In NAD. Noted patient has personal clothes and shoes on. Patient wanting something to eat. Denies SI or HI at this time. Calm and cooperative. 09:22 Reassessment: Patient appears in no apparent distress at this time. Patient and/or ph family updated on plan of care and expected duration. Pain level reassessed. Patient is alert, oriented x 3, equal unlabored respirations, skin warm/dry/pink. Pt awake and alert, eating breakfast, being cooperative w/ hospitals psychiatric protocols and changed into paper scrubs, states that he is no longer suicidal and that he has been out of his medications, Risperdal and Trazadone, states that he would like to be d/c if he can et a prescription for his medications, ERP notified of pt request. 10:30 Reassessment: Patient appears in no apparent distress at this time. No changes from previously documented assessment. Patient and/or family updated on plan of care and expected duration. Pain level reassessed. Patient is alert, oriented x 3, equal unlabored respirations, skin warm/dry/pink. 11:24 Reassessment: Patient appears in no apparent distress at this time. No changes from previously documented assessment. Patient and/or family updated on plan of care and expected duration. Pain level reassessed. [facility] staff at bedside speaking with patient Patient denies pain at this time. 12:01 Reassessment: [facility] STAFF AT PATIENT BEDSIDE. RE-EVALUATED PATIENT AND STATES PATIENT HAS SAFETY PLAN. PATIENT WILL GO WITH [facility] STAFF TO [facility] IN [place]. Physician notified by [facility] of plan. Physician cooperative. Belongings brought back with patient. Sitter with patient. Psych: 03/30 15:24 [place] Suicide Severity Screening: In the past month, have you wished you were ap3 or wished you could go to sleep and not wake up? Patient responds "yes." "In the past month, have you actually had any thoughts of killing yourself?" Patient responds "yes." "In your lifetime, have you ever done anything, started to do anything, or prepared to do anything to end your life?" Patient responds "yes.". Subjective: Patient's mood is angry, irritable, Hallucinations are auditory, visual. Objective: Patient is uncooperative, aggressive, challenging, hostile, suspicious. 15:26 Patient uses methamphetamines Last use was 1 days ago. ap3 16:03 Interventions: Removed personal items and placed in bag. Safety Checks: Personal items mb8 have been removed. Door is open. 03/31 09:00 [place] Suicide Severity Screening: In the past month, have you wished you were db or wished you could go to sleep and not wake up? Patient responds "No." "In the past month, have you actually had any thoughts of killing yourself?" Patient responds "no." "In your lifetime, have you ever done anything, started to do anything, or prepared to do anything to end your life?" Patient responds "no." Denies SI at this time. States is feeling better. Subjective: Patient's mood is Calm and cooperative Delusions are denied, Hallucinations are denied. Objective: Patient is cooperative, Speech is normal, Affect is appropriate. Interventions: Removed personal items and placed in bag. Patient placed in hospital gown. Searched person for dangerous items. Belonging list filled out. Patient reassessed during use of restraints. Patient is physically safe. Items given to security. Safety Checks: Personal items have been removed. Door is open. Safety Checks: sitter at bedside. Patient uses methamphetamines Last use was 1 days ago. Consultation: [facility] Consulted. 12:05 Commitment: Patient will be a voluntary commitment. ph Vital Signs: 03/30 15:20 BP 135 / 111; Weight 84.82 kg; Height 5 ft. 8 in. (172.72 cm); ap3 16:23 Pulse 130; Pulse Ox 95% on R/A; kc6 16:59 BP 114 / 79 RA Supine (auto/reg); Temp 97.7(O); Weight 84.82 kg; Height 5 ft. 8 in. kc6 (172.72 cm); 17:35 Pulse 122; Pulse Ox 98% ; mb8 18:27 Temp 98.2(O); Pain 0/10; kc6 03/31 07:00 BP 123 / 79; Pulse 90; Resp 18; Pulse Ox 97% on R/A; oe 11:30 BP 122 / 78; Pulse 78; Resp 16; Pulse Ox 98% ; Pain 0/10; ph 03/30 16:59 Body Mass Index 28.43 (84.82 kg, 172.72 cm) kc6 ED Course: 03/30 14:21 Patient arrived in ED. rg4 14:45 Uzair Sherman MD is Attending Physician. jr11 15:23 Triage completed. ap3 15:26 Arm band placed on right wrist. ap3 15:30 Patient has correct armband on for positive identification. mb8 15:55 Dillon Oliveros, RN is Primary Nurse. mb8 15:55 Acetaminophen Sent. mb8 15:55 Basic Metabolic Panel Sent. mb8 15:55 CBC with Diff Sent. mb8 15:56 ETOH Level Sent. mb8 15:56 Hepatic Function Sent. mb8 15:56 PT-INR Sent. mb8 15:56 Ptt, Activated Sent. mb8 15:56 Salicylate Sent. mb8 16:00 Inserted saline lock: 20 gauge in left antecubital area, using aseptic technique. Blood mb8 collected. 16:03 Safety Checks: Sitter present at this time. mb8 16:56 No provider procedures requiring assistance completed. mb8 17:12 SARS RAPID Sent. kc6 17:35 Safety Checks: The door is open or patient has been placed in a hallway bed/chair. mb8 Sitter present at this time. 18:10 contacted [facility] to have screener evaluate pt. bd 18:17 Safety Checks: The door is open or patient has been placed in a hallway bed/chair. mb8 Sitter present at this time. 18:52 UDS Sent. kc6 19:11 Attending Physician role handed off by Uzair Sherman MD greyson 19:11 Raymon Avendano MD is Attending Physician. greyson 21:16 faxed patient clincals to all available psych facilities. mw2 03/31 01:41 CBC with Diff Sent. jj7 01:41 Chem 7 Sent. jj7 03:07 Police contacted [facility] to send an officer. mw2 08:17 refaxed chart to . bd 09:22 contacted [facility] to have pt re evaluated. bd 10:40 Ebony Elizabeth, RN is Primary Nurse. ph 11:29 Attending Physician role handed off by Raymon Avendano MD jr11 11:29 Uzair Sherman MD is Attending Physician. jr11 12:03 IV discontinued, intact, bleeding controlled, No redness/swelling at site. ph Administered Medications: 03/30 15:30 Drug: Geodon (ziprasidone) 10 mg Route: IM; Site: left deltoid; mb8 15:30 Drug: Geodon (ziprasidone) 10 mg Route: IM; Site: left deltoid; mb8 15:45 Drug: Ativan (LORazepam) 2 mg Route: IM; Site: right deltoid; mb8 17:34 Drug: NS 0.9% 1000 ml Route: IV; Rate: 1 bolus; Site: left antecubital; mb8 18:16 Follow up: Response: No adverse reaction; IV Status: Completed infusion mb8 20:07 Drug: NS 0.9% 1000 ml Route: IV; Rate: 1 bolus; Site: left antecubital; jj7 03/31 00:30 Drug: Ativan (LORazepam) 1 mg Route: IVP; Site: left antecubital; jj7 01:41 Follow up: Response: No adverse reaction jj7 01:37 Drug: Ativan (LORazepam) 0.5 mg Route: IVP; Site: left antecubital; jj7 03:06 Drug: Geodon (ziprasidone) 20 mg Route: IM; Site: right gluteus; jj7 03:06 Drug: Ativan (LORazepam) 2 mg Route: IM; Site: right gluteus; jj7 09:21 Drug: RisperDAL (risperiDONE) 1 mg Route: PO; ph 11:30 Follow up: Response: No adverse reaction db Medication: 03/30 15:26 VIS not applicable for this client. ap3 Outcome: 19:48 ER care complete, transfer ordered by . [facility] 03/31 11:31 Discharge ordered by . jr11 12:10 Discharged to [facility] to [facility] by [facility] Staff db 12:10 Condition: stable 12:10 Discharge instructions given to patient, [facility] staff 12:14 Patient left the ED. ph Signatures: Dirrim, Ryamon Hargrove MD MD cha Hall, Patricia RN RN ph Paxton, Holly rg4 Miguel Booth Amanda, RN RN ap3 Nick Paz mw2 Uzair Sherman MD MD jr11 Lana Cain kc6 Dillon Oliveros, RN RN mb8 Rosy Goddard RN RN jj7 Angelika Omer RN RN db Corrections: (The following items were deleted from the chart) 03/30 15:26 15:20 Risk Assessment: Do you want to hurt yourself or someone else? Patient reports no ap3 desire to harm self or others. ap3 03/31 12:04 08:02 Reassessment: Patient asleep with sitter. In NAD. Noted patient has personal ph clothes and shoes on. db
--- NOTE | 2022-03-30 19:48 | EDPHYS ---
Physician Documentation [facility] Name: Carlos Walker Age: 31 yrs Sex: Male : 1990 Arrival Date: 03/30/2022 Time: 14:21 Bed 17 Private MD: ED Physician Uzair Sherman HPI: 03/30 15:19 This 31 yrs old Male presents to ER via Unassigned with complaints of Psych jr11 Problem. 15:19 The patient presents to the emergency department with depression, over unknown jr11 circumstances, a history of substance abuse, Type: methamphetamines, yesterday , suicide ideation, and the patient has a plan, cut self . Onset: The symptoms/episode began/occurred just prior to arrival. Past psychiatric history: depression, psychosis, should be on Risperdal . Associated signs and symptoms: Pertinent positives; hallucinations, Pertinent negatives: abdominal pain, depression, fever. Severity of symptoms: At their worst the symptoms were moderate in the emergency department the symptoms are unchanged. denies hurting himself currently . Historical: - Allergies: 15:23 Abilify; ap3 15:23 Promethazine; ap3 - PMHx: 15:23 Schizophrenia; Bipolar disorder; ap3 - Immunization history:: Client reports receiving the 2nd dose of the Covid vaccine. - Social history:: Smoking status: Patient reports the use of cigarette tobacco products, smokes one pack cigarettes per day. Patient uses street drugs, Methamphetamine (Meth). ROS: 15:19 All other systems are negative. jr11 Exam: 15:19 Constitutional: This is a well developed, well nourished patient who is awake, alert, jr11 and in no acute distress. Head/Face: Normocephalic, atraumatic. Eyes: Extra-ocular motions intact. Lids and lashes normal. Conjunctiva and sclera are non-icteric and not injected. Cornea within normal limits. Periorbital areas with no swelling, redness, or edema. ENT: Nares patent. No nasal discharge, no septal abnormalities noted. Oropharynx with no redness, swelling, or masses, exudates, or evidence of obstruction, uvula midline. Mucous membranes moist. Neck: Trachea midline, no thyromegaly or masses palpated, and no cervical lymphadenopathy. Supple, full range of motion without nuchal rigidity, or vertebral point tenderness. No Meningismus. Chest/axilla: Normal chest wall appearance and motion. Nontender with no deformity. No lesions are appreciated. Cardiovascular: Regular rate and rhythm with a normal S1 and S2. No gallops, murmurs, or rubs. Normal PMI, no JVD. No pulse deficits. Respiratory: Lungs have equal breath sounds bilaterally, clear to auscultation and percussion. No rales, rhonchi or wheezes noted. No increased work of breathing, no retractions or nasal flaring. Abdomen/GI: Soft, non-tender, with normal bowel sounds. No distension or tympany. No guarding or rebound. No evidence of tenderness throughout. Back: No spinal tenderness. No costovertebral tenderness. Full range of motion. Skin: Warm, dry with normal turgor. Normal color with no rashes, no lesions, and no evidence of cellulitis. MS/ Extremity: Pulses equal, no cyanosis. Neurovascular intact. Full, normal range of motion. Neuro: Awake and alert, GCS 15, oriented to person, place, time, and situation. No gross motor or sensory deficits. Psych: anxious Vital Signs: 15:20 BP 135 / 111; Weight 84.82 kg; Height 5 ft. 8 in. (172.72 cm); ap3 16:23 Pulse 130; Pulse Ox 95% on R/A; kc6 16:59 BP 114 / 79 RA Supine (auto/reg); Temp 97.7(O); Weight 84.82 kg; Height 5 ft. 8 in. kc6 (172.72 cm); 17:35 Pulse 122; Pulse Ox 98% ; mb8 18:27 Temp 98.2(O); Pain 0/10; kc6 03/31 07:00 BP 123 / 79; Pulse 90; Resp 18; Pulse Ox 97% on R/A; oe 11:30 BP 122 / 78; Pulse 78; Resp 16; Pulse Ox 98% ; Pain 0/10; ph 03/30 16:59 Body Mass Index 28.43 (84.82 kg, 172.72 cm) [facility] MDM: 03/30 15:18 Patient medically screened. jr11 15:39 Differential diagnosis: drug withdrawal. acute psychotic break, psychosis secondary to jr11 non-compliance. Data reviewed: vital signs, nurses notes. ED course: [facility], will give ativan and place on pulse ox . 17:02 ED course: EKG interpreted by me shows sinus tachycardia, right axis deviation, normal jr intervals, no acute ST changes.. 03/31 11:30 ED course: Pt with safety plan, denies HI/SI will go back to [facility], will be jr11 trasported by MAT team . 03/30 15:19 Order name: Acetaminophen [facility] 03/30 15:19 Order name: Basic Metabolic Panel [facility] 03/30 15:19 Order name: CBC with Diff [facility] 03/30 15:19 Order name: ETOH Level [facility] 03/30 15:19 Order name: Hepatic Function [facility] 03/30 15:19 Order name: PT-INR [facility] 03/30 15:19 Order name: Ptt, Activated [facility] 03/30 15:19 Order name: Salicylate [facility] 03/30 16:05 Order name: CBC with Automated Diff; Complete Time: 16:06 EDMS 03/30 16:05 Order name: CBC Smear Scan; Complete Time: 16:06 EDMS 03/30 16:13 Order name: Protime (+INR); Complete Time: 16:16 EDMS 03/30 16:13 Order name: PTT, Activated Partial Thromb; Complete Time: 16:16 EDMS 03/30 16:15 Order name: Alcohol Serum/Plasma; Complete Time: 16:16 EDMS 03/30 16:16 Order name: UDS [facility] 03/30 16:45 Order name: Basic Metabolic Panel; Complete Time: 16:58 EDMS 03/30 16:45 Order name: Liver (Hepatic) Function; Complete Time: 16:58 EDMS 03/30 16:45 Order name: Acetaminophen Level; Complete Time: 16:58 EDMS 03/30 17:01 Order name: SARS RAPID [facility] 03/30 17:10 Order name: Salicylates Level; Complete Time: 17:48 EDMS 03/30 17:35 Order name: SARS-COV-2 Antigen Rapid; Complete Time: 17:48 EDMS 03/30 18:54 Order name: Urine Dipstick-Ancillary; Complete Time: 18:58 EDMS 03/30 19:41 Order name: Urine Drug Screen; Complete Time: 20:53 EDMS 03/31 00:17 Order name: CBC with Diff [facility] 03/31 00:17 Order name: Chem 7 [facility] 03/31 01:30 Order name: Basic Metabolic Panel; Complete Time: 02:25 EDMS 03/31 02:13 Order name: CBC with Automated Diff; Complete Time: 02:25 EDMS 03/30 15:19 Order name: EKG; Complete Time: 15:20 [facility] 03/30 15:19 Order name: EKG - Nurse/Tech; Complete Time: 16:44 03/30 15:19 Order name: IV Saline Lock; Complete Time: 15:56 03/30 15:19 Order name: Labs collected and sent; Complete Time: 15:56 [facility] 03/30 15:19 Order name: Suicide Precautions; Complete Time: 15:57 03/30 15:19 Order name: Suicide Screening ([facility]); Complete Time: 15:57 03/30 15:19 Order name: Urine Dipstick-Ancillary (obtain specimen); Complete Time: 18:52 [facility] 03/31 08:33 Order name: Diet Finger Food; Complete Time: 08:33 db Administered Medications: 03/30 15:30 Drug: Geodon (ziprasidone) 10 mg Route: IM; Site: left deltoid; mb8 15:30 Drug: Geodon (ziprasidone) 10 mg Route: IM; Site: left deltoid; mb8 15:45 Drug: Ativan (LORazepam) 2 mg Route: IM; Site: right deltoid; mb8 17:34 Drug: NS 0.9% 1000 ml Route: IV; Rate: 1 bolus; Site: left antecubital; mb8 18:16 Follow up: Response: No adverse reaction; IV Status: Completed infusion mb8 20:07 Drug: NS 0.9% 1000 ml Route: IV; Rate: 1 bolus; Site: left antecubital; jj7 03/31 00:30 Drug: Ativan (LORazepam) 1 mg Route: IVP; Site: left antecubital; jj7 01:41 Follow up: Response: No adverse reaction jj7 01:37 Drug: Ativan (LORazepam) 0.5 mg Route: IVP; Site: left antecubital; jj7 03:06 Drug: Geodon (ziprasidone) 20 mg Route: IM; Site: right gluteus; jj7 03:06 Drug: Ativan (LORazepam) 2 mg Route: IM; Site: right gluteus; jj7 09:21 Drug: RisperDAL (risperiDONE) 1 mg Route: PO; ph 11:30 Follow up: Response: No adverse reaction db Disposition Summary: 03/31/22 11:31 Discharge Ordered Location: Home jr Condition: Fair(03/31/22 11:31) jr11 Diagnosis - meth abuse jr11 - Drug abuse counseling and surveillance of drug abuser jr11 Discharge Instructions: - Discharge Summary Sheet jr11 - Suicidal Feelings: How to Help Yourself jr11 - Methamphetamines Use Disorder jr11 Forms: - Medication Reconciliation Form jr11 - Thank You Letter jr11 - Antibiotic Education jr11 - Prescription Opioid Use jr11 Signatures: Dispatcher [employer] EDMS Raymon Avendano MD MD cha Hall, Patricia RN RN ph Katie Schuler RN RN ap3 Uzair Sherman MD MD jr11 Raul Oliveros RN RN mb8 Rosy Goddard RN RN jj7 Angeliak Omer RN db Corrections: (The following items were deleted from the chart) 03/30 15:56 15:20 URINE DRUG SCREEN+UC.LAB.BRZ ordered. EDPA EDPA 03/31 11:30 10 19:48 to psych [facility]11 03/31 11:30 10 19:48 Psych Facility [place] [id number] 03/31 11:30 03/30 19:48 Higher level of care [facility]11 03/31 11:30 03/30 19:48 Stable [facility]11 03/31 11:30 03/30 19:48 new [facility] 03/31 11:30 03/30 19:48 have improved [facility] 11 03/31 11:30 03/30 19:48 Schizophrenia, unspecified [facility] 11 03/31 11:30 03/30 19:48 Bipolar disorder, unspecified [facility] 11 03/31 11:30 03/30 19:48 Suicidal ideations [facility] 11 03/31 11:30 03/30 19:48 Abuse of other non-psychoactive substances [facility] jr11 03/31 11:30 03/30 19:48 Adverse effect of amphetamines [place] [id number]
[2022-03-31] MEDS ORDERED: LORazepam 2 MG/ML VIAL ONE ×2 (00:19→02:53)
[2022-03-31 01:30] LABS: Potassium 3.6 mmol/L (3.5-5.1)
[2022-03-31 02:06] LABS: Absolute Lymphocytes (CBC) 1.6 K/uL (0.7-4.9); MCV 85.5 fL (80-100); MPV 8.6 fL (7.6-11.3); RBC Red Blood Cell Count 5.15 M/uL (4.33-5.43)
[2022-03-31] MEDS ORDERED: ZIPRASIDONE MESYLA 20 MG/VIAL IM ONE (02:54)
[2022-03-31] MEDS ORDERED: WATER FOR INJ,STERILE 10 ML ONE (02:56)
[2022-03-31] MEDS ORDERED: RISPERIDONE 1 MG TABLET PO ONE (09:00)
[2022-03-31 12:43] VITALS: TEMP 98.2
[2022-03-31 12:46] VITALS: BP 122/78; O2SAT 98
--- NOTE | 2022-04-01 07:54 | EKG ---
Test Date: 2022-03-30 Test Time: 16:38:56 [place] Attendant: THA MEASUREMENT RESULTS: Intervals: Rate: 119 [place]: 144 QRSD: 90 QT: 330 QTc: 464 [place]: P: 76 OH: 144 QRS: 91 T: 50 INTERPRETIVE STATEMENTS: Sinus tachycardia Rightward axis Borderline ECG Compared to ECG 11/13/2021 04:11:19 Right-axis deviation now present Incomplete right bundle-branch block no longer present Electronically Signed On 04-01-22 07:48:40 CDT by Ángel Maki
== END 2022-03-31 12:14 | disposition home or self-care (01) ==
LOC: ER 14:19
DX: F15.10 Other stimulant abuse, uncomplicated (principal); Z71.51 Drug abuse counseling and surveillance of drug abuser; F31.9 Bipolar disorder, unspecified; F20.9 Schizophrenia, unspecified; F17.210 Nicotine dependence, cigarettes, uncomplicated; Z20.822 Contact with and (suspected) exposure to COVID-19
CPT/HCPCS: 36415; 80048; 80076; 80307; 80320; 80329; 81003; 85025; 85610; 85730; 87811; 93005; 96361; 96372; 96374; 99285; J3486; J7030

== ENCOUNTER 2022-04-10 06:05 | Emergency (ER) | payer SELFPAY ==
--- OUTSIDE RECORDS SUMMARY | 2022-04-10 06:13 | XMS REPORT | Continuity of Care Document ---
:1990 Author Organization [facility] t Address [address] [place] [address] Care Team Providers Name Role Phone Pcp-None Primary Care Physician Unavailable CINDY_ASHISH Attending Clinician Unavailable AMAURY COULTER Attending Clinician Unavailable JEANMARIE RAMON Attending Clinician Unavailable Anabel Masters Attending Clinician Unavailable DICK GENAO Attending Clinician Unavailable Hemal Ag Attending Clinician Unavailable Jose Gomez Attending Clinician Unavailable MARIAM PALENCIA Attending Clinician Unavailable Mariam Palencia MD Attending Clinician MARCOS VILLA Attending Clinician Unavailable MARCOS VILLA Attending Clinician Unavailable NANY SON Attending Clinician Unavailable NANY SON Attending Clinician Unavailable Cindy Atkinson PA-C Attending Clinician HOLLY BILLINGS Attending Clinician Unavailable Lyle Alberts MD Attending Clinician Roberto CHAVIS, Óscar Attending Clinician Manuelito CHAVIS, Holly Chao Attending Clinician [phone] Rc CHAVIS, Kiko Shannon Attending Clinician Juan SHEFFIELD, Adonis Geiger Attending Clinician Unavailable JAMES MELISSA Attending Clinician Unavailable Margo CHAVIS, Norbert Attending Clinician Lopez Acevedo MD Attending Clinician James Melissa MD Attending Clinician MARIA INES BALLESTEROS Attending Clinician Unavailable MARIA INES BALLESTEROS Attending Clinician Unavailable PERFECTO GUTIERRES Attending Clinician Unavailable PERFECTO GUTIERRES Attending Clinician Unavailable Ld Franklin MD Attending Clinician Mariam Hernandez DO Attending Clinician Perfecto Gutierres DO Attending Clinician Lucien Alfaro MD Attending Clinician Mary Lou CHAVIS, Vipul Lock Attending Clinician Lashanda CHAVIS, Shyanne Narayanan Attending Clinician ROBERT STEVENS Attending Clinician Unavailable Robert Stevens MD Attending Clinician Domitila PATEL Attending Clinician Unavailable Domitila Fowler Attending Clinician Michael Carpenter MD Attending Clinician MICHAEL CARPENTER Attending Clinician Unavailable SUSAN RON Attending Clinician Unavailable Susan Maza Attending Clinician LOPEZ ACEVEDO Attending Clinician Unavailable Anna Marie Diaz MD Attending Clinician [place] Attending Clinician Unavailable [place] Attending Clinician Unavailable [place] MD Attending Clinician Physician, No Primary or Family Admitting Clinician Unavaila caroline GREENBERG Admitting Clinician Unavailable HOLLY BILLINGS Admitting Clinician Unavailable Holly Billings MD Admitting Clinician [phone] JAMES MELISSA Admitting Clinician Unavailable James Melissa MD Admitting Clinician MORRICALLOPEZ O Admitting Clinician Unavailable [place] Admitting Clinician Unavailable Payers Payer Name Policy Type Policy Number Effective Date Expiration Date S ource Problems Condition Condition Condition Status Onset Resolution Last Treating Co mments Source Name Details Category Date Date Treatment Clinician Date Rhabdomyol Rhabdomyol Disease Active U nivers ysis ysis 7-28 ity of 00:00: [address] Suicidal Suicidal Disease Active Unive rs ideations ideations 7-20 ity of 00:00: [address] Problem Problem [facility] Schizophre Schizophre Disease Active [facility] Polysubsta Polysubsta Disease Active [facility] nce [facility] Bipolar Bipolar Disease Active [facility] Allergies, Adverse Reactions, Alerts Allergy Allergy Status Severity Reaction(s) Onset Inactive Treating Comm ents Source Name Type Date Date Clinician prometha DA Active U Unknown [facility] 8-17 00:00: 00 aripipra DA Active U Unknown [facility] zole 8-17 00:00: 00 prometha DA Active U Unknown [facility] zine 8-13 00:00: 00 aripipra DA Active U Unknown 0 [facility] zole 8-13 00:00: 00 prometha DA Active U Unknown 0 [facility] zine 8-11 00:00: 00 aripipra DA Active U Unknown 0 [facility] zole 8-11 00:00: 00 prometha DA Active U Unknown 0 [facility] zine 6-14 00:00: 00 [facility]ipra [facility] 00 [facility]a DA Active [place] 0 [facility] z[facility]-05 [place] 00:00: d [address] [place] [address] aripipra DA Active SV 2020-0 [facility] zole 3-05 [place] 00:00: d 00 [facility] prometha DA Active MO TREMORS 2020-0 [facility] zine 3-05 [place] 00:00: d 00 [facility] aripipra DA Active SV DYSTONIC 2020-0 [facility] zole REACTION 3-05 [place] 00:00: d 00 [facility] ARIPIPRA DRUG Active Unknown-Cmnt [id number] [place] ZOLE INGREDI 5-06 ity of 00:00: [place] 00 [facility] PHENERGA DRUG Active Unknown-Cmnt 2019-0 Un [place] N PLAIN 5-06 ity of 00:00: [place] 00 [facility] Aripipra Propensi Active Unknown - 2019-0 Uni vers zole ty to See comments - ity of adverse 00:00: [place] reaction 00 [facility] Phenerga Propensi Active Unknown - 2019-0 Uni vers n Plain ty to See comments - ity of adverse 00:00: [place] reaction 00 [facility] prometha Drug Active [facility] Abilify Drug Active [facility] prometha Drug Active [facility] Abilify Drug Active [facility] prometha Drug Active [facility] prometha Drug Active [facility] Abilify Drug Active [facility] Abilify Drug Active [facility] prometha Drug Active [facility] Abilify Drug Active [facility] prometha Drug Active [facility] Abilify Drug Active [facility] Social History Social Habit Start Date Stop Date Quantity Comments Source History of Passive smoker University of tobacco use [facility] Exposure to 2022-01-25 2022-02-04 Not sure University of SARS-CoV-2 00:00:00 14:20:00 [facility] (event) [place] Alcohol intake 2022-02-04 2022-02-04 Current drinker Unive rsity of 00:00:00 00:00:00 of alcohol [facility] (finding) [place] Tobacco use and 2022-01-22 2022-01-22 Smokeless tobacco Un iversity of exposure 00:00:00 00:00:00 non-user [facility] Sex Assigned At [birth year] [facility] 00:00:00 00:00:00 Smoking Status Start Date Stop Date Source Unknown if ever smoked [facility] Smokes tobacco daily 2022-01-22 00:00:00 Univers ity of [facility] Medications Ordered Filled Start Stop Current Ordering Indication Dosage Frequency Signature Comments Components Source Medication Medication Date Date Medication? Clinician (SIG) Name Name diazePAM No 5mg 5 mg, Slow Un tiffany (VALIUM) 02-04 IV Push, ity of injection 5 20:15: 20:14 ONCE, 1 [place] mg 00 :00 dose, On Wed Branch 02/04/22 at 1515, STAT NaCl 0.9% 2021- No 1000mL at 999 Uni vers (NS) bolus 01-31-06 mL/hr, ity of infusion 04:00: 04:42 1,000 mL, [place] 1,000 mL 00 :00 IV Medical Infusion, Branch ONCE, 1 dose, On Wed01/30/22 at 2300, STAT NaCl 0.9% 2021- No 1000mL at 999 Uni vers (NS) bolus 01-31 08-06 mL/hr, ity of infusion 01:30: 02:50 1,000 mL, [place] 1,000 mL 00 :00 IV Medical Infusion, Branch ONCE, 1 dose, On Wed01/30/22 at 2030, STAT diazePAM 2021- No 5mg 5 mg, Slow Un tiffany (VALIUM) 01-31-06 IV Push, ity of injection 5 00:30: 01:35 ONCE, 1 [place] mg 00 :00 dose, On Medical Wed01/30/22 Branch at 1930, STAT NaCl 0.9% 2021- No 1000mL at 999 Uni vers (NS) bolus 01-27 08-02 mL/hr, ity of infusion 03:15: 04:25 1,000 mL, [place] 1,000 mL 00 :00 IV Medical Infusion, Branch ONCE, 1 dose, On 01/26/22 at 2215, [place] dicyclomine Yes [id number] 20mg Take 1 Univers 20 mg 8-01 tablet by ity of tablet 00:00: mouth 4 [place] 00 (four) Medical times Branch daily. dicyclomine 2021-0 Yes [id number] 20mg Take 1 Univers 20 mg 8-01 tablet by ity of tablet 00:00: mouth 4 [place] 00 (four) Medical times Branch daily. dicyclomine 2021-0 Yes [id number] 20mg Take 1 Univers 20 mg 8-01 tablet by ity of tablet 00:00: mouth 4 [place] 00 (four) Medical times Branch daily. dicyclomine 2021-0 2022- No [id number] 20mg Take 1 Univers 20 mg 8-01 08-01 tablet by ity of tablet 00:00: 00:00 mouth 4 [place] 00 :00 (four) Medical times Branch daily. traZODone Yes 50mg 50 mg, Univer s (DESYREL) 01-25 Oral, QHS, ity of tablet 50 02:00: [place] mg 00 (after Medical last Branch modificati on) on [facility] 01/24/22 at 2100, Until Discontinu ed, Routine risperiDONE Yes 2mg 2 mg, Unive rs (RISPERDAL) 01-25 Oral, QHS, it y of tablet 2 mg 02:00: First dose [place] 00 (after Medical last Branch modificati on) on 01/24/22 at 2100, Until Discontinu ed, Routine traZODone 2021-2021- No 50mg 50 mg, Unive rs (DESYREL) 01-23 Oral, ity of tablet 50 22:30: 21:32 ONCE, 1 [place] mg 00 :00 dose, On Medical Fri Branch 01/23/22 at 1730, Routine risperiDONE 2021-0 2021- No 2mg 2 mg, Univ ers (RISPERDAL) 01-23 Oral, ity of tablet 2 mg 22:30: 21:32 ONCE, 1 [place] 00 :[place] dose, On Medical Fri Branch 01/23/22 at 1730, Routine risperiDONE 2021-0 Yes 2mg Take 2 mg U nivers (RISPERDAL) 01-23 by mouth ity of 2 mg tablet 18:04: at [place] [id number] bedtime. Medical Branch traZODone 0 Yes 50mg Take 50 mg Un tiffany 50 mg 7-29 by mouth ity of tablet 18:04: at [place] [id number] bedtime. Medical Branch risperiDONE 2021-0 Yes 2mg Take 2 mg U nivers (RISPERDAL) 7-29 by mouth ity of 2 mg tablet 18:04: at [place] [id number] bedtime. Medical Branch traZODone 2021-0 Yes 50mg Take 50 mg Un [place] 50 mg 7-29 by mouth ity of tablet 18:04: at [place] [address] bedtime. Medical Branch risperiDONE 0 Yes 2mg Take 2 mg U nivers (RISPERDAL) 7-29 by mouth ity of 2 mg tablet 18:04: at [place] [address] bedtime. Medical Branch traZODone 2021-0 Yes 50mg Take 50 mg Un [place] 50 mg 7-29 by mouth ity of tablet 18:04: at [place] [address] bedtime. Medical Branch risperiDONE 2021-0 Yes 2mg Take 2 mg U nivers (RISPERDAL) 7-29 by mouth ity of 2 mg tablet 18:04: at [place] [address] bedtime. Medical Branch traZODone 0 Yes 50mg Take 50 mg [place] 50 mg 7-29 by mouth ity of tablet 18:04: at [place] [address] bedtime. Medical Branch lactated 0 Yes 1000mL at 125 Unive rs ringers IV 7-29 mL/hr, ity of infusion 17:15: 1,000 mL, [place] 1,000 mL 00 IV Medical Infusion, Branch CONTINUOUS , Starting on Wed01/23/22 at 1215, Until Discontinu ed, Routine heparin 0 Yes 5000U 5,000 Univers (porcine) 7-29 Units, ity of injection 01:00: Subcutaneo [place] 5,000 Units 00 us, Q12H, Med ical First dose Branch on [place] 01/22/22 at 2000, Until Discontinu ed, Routine acetaminoph 0 Yes 650mg 650 mg, Un tiffany en - Oral, ity of (TYLENOL) 00:32: [facility] [place] tablet 650 25 Starting Medic al mg on [place] Branch 01/22/22 at 1932, Until Discontinu ed, Routine, Pain (scale 1-3) lactated 2021- No 2000mL at 999 Univ ers ringers IV 01-23 07-29 mL/hr, ity of infusion 00:15: 16:00 2,000 mL, [place] 2,000 mL 00 :53 IV Medical Infusion, Branch CONTINUOUS , Starting on [place] 01/22/22 at 1915, Until Wed01/23/22 at 1100, Routine lactated 0 2021- No 2000mL at 999 Univ ers ringers IV 01-22- mL/hr, ity of infusion 14:45: 13:39 2,000 mL, [place] 2,000 mL 00 :00 IV Medical Infusion, Branch ONCE, 1 dose, On Wed01/22/22 at 0945, TOMAS NaCl 0.9% 2021- No 1000mL at 999 Uni vers (NS) bolus 01-22 mL/hr, ity of infusion 08:30: 10:30 1,000 mL, [place] 1,000 mL 00 :00 IV Medical Infusion, Branch ONCE, 1 dose, On Wed01/22/22 at 0330, STAT risperiDONE Yes 2mg Take 2 mg U nivers (RISPERDAL) 01-16 by mouth ity of 2 mg tablet 17:15: at [place] [address] bedtime. Medical Branch traZODone Yes 50mg Take 50 mg Un t[place] 50 mg 01-16 by mouth ity of tablet 17:15: at [place] [address] bedtime. Medical Branch risperiDONE Yes 2mg Take 2 mg U nivers (RISPERDAL) 01-16 by mouth ity of 2 mg tablet 17:15: at [place] [address] bedtime. Medical Branch traZODone Yes 50mg Take 50 mg Un t[place] 50 mg 22 by mouth ity of tablet 17:15: at [place] [address] bedtime. Medical Branch lidocaine 2021- Yes 1{patch 1 Patch, Univers (LIDODERM) 01-16 } Topical, ity of 5 % (700 16:20: 06:53 Administer [place] mg/patch) 00 :00 over 12 Medical patch 1 Hours, Branch Patch ONCE, 1 dose, On Wed01/16/22 at 1130, Routine lactated 0 Yes 1000mL at 125 Unive rs ringers IV 7-21 mL/hr, ity of infusion 17:15: 1,000 mL, [place] 1,000 mL 00 IV Medical Infusion, Branch CONTINUOUS , Starting on Wed01/15/22 at 1215, Until Discontinu ed, Routine lactated 2021-0 2021- No 1000mL at 999 Univ ers ringers IV 7 07-21 mL/hr, ity of infusion 14:00: 16:12 1,000 mL, [place] 1,000 mL 00 :21 Intravenou Medic al s, Branch CONTINUOUS , Starting on Wed01/15/22 at 0900, Until Wed01/15/22 at 1112, Routine traZODone 0 Yes 50mg 50 mg, Univer s (DESYREL) 7 Oral, QHS, ity of tablet 50 02:00: First dose [place] mg 00 on Wed [facility] 01/14/22 at Branch 2100, Until Discontinu ed, Routine risperiDONE 0 Yes 2mg 2 mg, Unive rs (RISPERDAL) 01-15 Oral, QHS, it y of tablet 2 mg 02:00: First dose [place] 00 on Wed [facility] 01/14/22 at Branch 2100, Until Discontinu ed, Routine benztropine 0 Yes 1mg 1 mg, Unive rs (COGENTIN) 01-15 Oral, BID, ity of tablet 1 mg 01:00: First dose [place] 00 on Wed [facility] 01/14/22 at Branch 2000, Until Discontinu ed, Routine lactated 0 2021- No 1000mL at 1,000 Un tiffany ringers IV 01-14 07-21 mL/hr, ity of infusion 22:30: 04:29 1,000 mL, [place] 1,000 mL 00 :00 IV Medical Infusion, Branch CONTINUOUS , Starting on Wed01/14/22 at 1730, Until Wed01/14/22 at 2329, Routine enoxaparin 0 Yes 30mg 30 mg, Unive rs (LOVENOX) 7 Subcutaneo ity of injection 22:00: [place], DAILY, [place] 30 mg 00 First dose Medical on Wed [place] 01/14/22 at 1700, Until Discontinu ed, Routine acetaminoph 2021-0 Yes 650mg 650 mg, Un tiffany en -20 Oral, ity of (TYLENOL) 16:06: Q6HPRN, [place] tablet 650 11 Starting Medic al mg on Wed Branch 01/14/22 at 1106, Until Discontinu ed, Routine, Pain (scale 1-3) lactated 0 2021- No 1000mL at 1,000 Un tiffany ringers IV 01-14 07-20 mL/hr, ity of infusion 15:15: 21:14 1,000 mL, [place] 1,000 mL 00 :00 IV Medical Infusion, Branch CONTINUOUS , Starting on Wed01/14/22 at 1015, Until Wed01/14/22 at 1614, Routine NaCl 0.9% 2021- No 2000mL at 999 Uni vers (NS) bolus 01-14 07-20 mL/hr, ity of infusion 13:45: 17:22 2,000 mL, [place] 2,000 mL 00 :00 IV Medical Infusion, Branch ONCE, 1 dose, On Wed01/14/22 at 0845, STAT divalproex 2021- No 500mg 500 mg, Un tiffany ER 01-08 07-14 Oral, ity of (DEPAKOTE 12:00: 11:56 ONCE, 1 [place] ER) 24 hr 00 :00 dose, On Medica l tablet 500 [place] Branch mg 01/08/22 at 0700, Routine ibuprofen 2021-0 Yes 400mg 400 mg, Univ ers (IBU) 6-12 Oral, ity of tablet 400 03:07: Q6HPRN, [place] mg 33 Starting Medical on Wed Branch 12/06/21 at 2207, Until Discontinu ed, TOMAS, Pain (scale 4-6) methocarbam 2021-0 Yes 500mg 500 mg, Un tiffany oL 6-12 Oral, ity of (ROBAXIN) 03:07: QIDPRN, [place] tablet 500 17 Starting Medic al mg on Wed Branch 12/06/21 at 2207, Until Discontinu ed, Routine, Muscle Spasms OLANZapine 2021-0 Yes 5mg 5 mg, Univer s ZYDIS 6-12 Oral, BID, ity of (ZyPREXA 01:00: First dose [place] ZYDIS) 00 on [facility] Medical disintegrat 6/11/22 at Br anch ing tablet 2000, 5 mg Until Discontinu ed, TOMAS OLANZapine 2021- No 5mg 5 mg, Unive rs ZYDIS 12-06 Oral, ity of (ZyPREXA 02:30: 01:37 ONCE, 1 [place] ZYDIS) 00 :00 dose, On Medical disintegrat Fri Branch ing tablet 12/05/21 at 5 mg 2130, TOMAS diazePAM 2021- No 5mg 5 mg, Univers (VALIUM) 12-06 Oral, ity of tablet 5 mg 02:30: 01:36 ONCE, 1 [place] 00 :00 dose, On Medical Fri Branch 12/05/21 at 2130, TOMAS LORazepam 2021- No 1mg 1 mg, Univer s (ATIVAN) 12-05 Oral, ity of tablet 1 mg 16:15: 16:36 ONCE, 1 [place] 00 :00 dose, On Medical Fri Branch 12/05/21 at 1115, TOMAS LORazepam 2021- No 2mg 2 mg, Slow U nivers (ATIVAN) 11-22 05-28 IV Push, ity of injection 2 04:15: 03:10 ONCE, 1 [place] mg 00 :00 dose, On Medical Fri Branch 11/21/21 at 2315, STAT NaCl 0.9% No 1000mL at 999 Uni vers (NS) bolus 11-22 05-28 mL/hr, ity of infusion 04:00: 03:46 1,000 mL, [place] 1,000 mL 00 :00 IV Medical Infusion, Branch ONCE, 1 dose, On Wed11/21/21 at 2300, TOMAS OLANZapine 2021- No 10mg 10 mg, Univ ers (ZyPREXA) 09-2430 Oral, ity of tablet 10 07:15: 06:13 ONCE, 1 [place] mg 00 :00 dose, On Medical Wed Branch 09/24/21 at 0215, Routine PARoxetine 2021- No 20mg 20 mg, Univ ers (PAXIL) 09-2430 Oral, ity of tablet 20 07:15: 06:27 ONCE, 1 [place] mg 00 :00 dose, On Medical Wed Branch 09/24/21 at 0215, Routine divalproex 2021- No 500mg 500 mg, Un tiffany ER 09-24 0330 Oral, ity of (DEPAKOTE 07:15: 07:15 ONCE, 1 [place] ER) 24 hr 00 :00 dose, On Medica l tablet 500 Wed Branch mg 09/24/21 at 0215, Routine acetaminoph 2019-06- No 650mg 650 mg, U nivers en 0-20 10-20 Oral, ity of (TYLENOL) 17:30: 17:12 ONCE, 1 [place] tablet 650 00 :00 dose, Tue Medi arturo mg 04/16/20 Branch at 1230, TOMAS LORazepam 2019- No 2mg 2 mg, Univer s (ATIVAN) 08-22 02 Oral, ity of tablet 2 mg 04:00: 02:54 ONCE, 1 [place] 00 :00 dose, Mon Medical 08/21/19 at Branch 2200, TOMAS acetaminoph 2019- No 650mg 650 mg, U nivers en 2-17 02-17 Oral, ity of (TYLENOL) 02:00: 13:59 ONCE, 1 [place] tablet 650 00 :00 dose, Sun Medi arturo mg 08/13/19 at Branch 2000, TOMAS ketorolac 2018- No 60mg 60 mg, Unive rs (TORADOL) 03-03 Intramuscu ity of injection 09:15: 08:38 lar, ONCE, [place] 60 mg 00 :00 1 dose, Medical 03/03/19 Branch at 0415, TOMAS
Fa culty member approving Restricted medication : ANNA MARIE DIAZ oxymetazoli 2019- No 1{spray 1 [place], Univers ne 03-03 } Nasal, ity of (OXYMETAZOL 09:15: 08:42 ONCE, 1 [place] INE HCL) 00 :00 dose, Fri Medica l 0.05 % 03/03/19 at Branch nasal spray 0415, TOMAS 1 [place] oxymetazoli 2019- No 2{spray 2 [place], Univers ne 03-03 } Nasal, ity of (OXYMETAZOL 09:15: 08:03 ONCE, 1 [place] INE HCL) 00 :00 dose, Fri Medica l 0.05 % 03/03/19 at Branch nasal spray 0415, 2 [place] Routine tetanus-dip 2019-0 2019- No .5mL 0.5 mL, Un tiffany htheria 03-03 09-06 Intramuscu ity o f toxoids 09:00: 08:04 lar, ONCE, [place] as (TDVAX) 2-2 00 :00 1 dose, Medic al Lf unit/0.5 03/03/19 Br anch mL at 0400, injection Routine 0.5 mL divalproex Yes [id number] 1000mg Take 2 Univers (DEPAKOTE) 7-04 tablets by ity of 500 mg EC 00:00: mouth [place] tablet 00 every 12 Medical (twelve) Branch hours. divalproex 2018- Yes [id number] 1000mg Take 2 Univers (DEPAKOTE) 7-04 tablets by ity of 500 mg EC 00:00: mouth [place] tablet 00 every 12 Medical (twelve) Branch hours. divalproex Yes [id number] 1000mg Take 2 Univers (DEPAKOTE) 7-04 tablets by ity of 500 mg EC 00:00: mouth [place] tablet 00 every 12 Medical (twelve) Branch hours. divalproex Yes [id number] 1000mg Take 2 Univers (DEPAKOTE) 7-04 tablets by ity of 500 mg EC 00:00: mouth [place] tablet 00 every 12 Medical (twelve) Branch hours. divalproex 2018- Yes [id number] 1000mg Take 2 Univers (DEPAKOTE) 7-04 tablets by ity of 500 mg EC 00:00: mouth [place] tablet 00 every 12 Medical (twelve) Branch hours. divalproex 2019-0 Yes [id number] 1000mg Take 2 Univers (DEPAKOTE) 7-04 tablets by ity of 500 mg EC 00:00: mouth [place] tablet 00 every 12 Medical (twelve) Branch hours. divalproex 2018- Yes [id number] 1000mg Take 2 Univers (DEPAKOTE) 7-04 tablets by ity of 500 mg EC 00:00: mouth [place] tablet 00 every 12 Medical (twelve) Branch hours. divalproex 2019- Yes [id number] 1000mg Take 2 Univers (DEPAKOTE) 7-04 tablets by ity of 500 mg EC 00:00: mouth [place] tablet 00 every 12 Medical (twelve) Branch hours. divalproex Yes [id number] 1000mg Take 2 Univers (DEPAKOTE) 7-04 tablets by ity of 500 mg EC 00:00: mouth [place] tablet 00 every 12 Medical (twelve) Branch hours. divalproex Yes [id number] 1000mg Take 2 Univers (DEPAKOTE) 7-04 tablets by ity of 500 mg EC 00:00: mouth [place] tablet 00 every 12 Medical (twelve) Branch hours. divalproex 2022- No [id number] 1000mg Take 2 Univers (DEPAKOTE) 7-04 07-22 tablets by it y of 500 mg EC 00:00: 00:00 mouth [place] tablet 00 :00 every 12 Medical (twelve) Branch hours. acetaminoph Yes [id number] 1{tbl} Take 1 Univers en-codeine 6-22 tablet by ity of 300-30 mg 00:00: mouth [place] tablet 00 every 4 Medical (four) Branch hours as needed for Pain (scale 4-6) or Pain (scale 7-10). oxymetazoli Yes [id number] 1{spray Use 1 Univers ne (AFRIN, 6-22 } [place] in ity o f OXYMETAZOLI 00:00: each [place] NE,) 0.05 % 00 nostril as Me dical nasal spray needed Branch (epistaxis ). acetaminoph Yes [id number] 1{tbl} Take 1 Univers en-codeine 6-22 tablet by ity of 300-30 mg 00:00: mouth [place] tablet 00 every 4 Medical (four) Branch hours as needed for Pain (scale 4-6) or Pain (scale 7-10). oxymetazoli Yes [id number] 1{spray Use 1 Univers ne (AFRIN, 6-22 } [place] in ity o f OXYMETAZOLI 00:00: each [place],) 0.05 % 00 nostril as Me dical nasal spray needed Branch (epistaxis ). acetaminoph Yes [id number] 1{tbl} Take 1 Univers en-codeine 6-22 tablet by ity of 300-30 mg 00:00: mouth [place] tablet 00 every 4 Medical (four) Branch hours as needed for Pain (scale 4-6) or Pain (scale 7-10). oxymetazoli Yes [id number] 1{spray Use 1 Univers ne (AFRIN, 6-22 } [place] in ity o f OXYMETAZOLI 00:00: each [place],) 0.05 % 00 nostril as Me dical nasal spray needed Branch (epistaxis ). acetaminoph Yes [id number] 1{tbl} Take 1 Univers en-codeine 6-22 tablet by ity of 300-30 mg 00:00: mouth [place] tablet 00 every 4 Medical (four) Branch hours as needed for Pain (scale 4-6) or Pain (scale 7-10). oxymetazoli Yes [id number] 1{spray Use 1 Univers ne (AFRIN, 6-22 } [place] in ity o f OXYMETAZOLI 00:00: each [place],) 0.05 % 00 nostril as Me dical nasal spray needed Branch (epistaxis ). acetaminoph 2020- No [id number] 1{tbl} Take 1 Univers en-codeine 6-22 02-23 tablet by ity of 300-30 mg 00:00: 00:00 mouth [place] tablet 00 :00 every 4 Medical (four) Branch hours as needed for Pain (scale 4-6) or Pain (scale 7-10). oxymetazoli 2020- No [id number] 1{spray Use 1 Univers ne (AFRIN, 6-22 02-23 } [place] in ity of OXYMETAZOLI 00:00: 00:00 each [place],) 0.05 % 00 :00 nostril as Me dical nasal spray needed Branch (epistaxis ). Immunizations Ordered Filled Immunization Date Status Comments [facility] e Immunization Name Name Td 2019-03-03 Completed University of 00:00:00 [facility] Td 2019-03-03 Completed University of 00:00:00 [facility] Td 2019-03-03 Completed University of 00:00:00 [facility] Td 2019-03-03 Completed University of 00:00:00 [facility] Td 2019-03-03 Completed University of 00:00:00 [facility] Td 2019-03-03 Completed University of 00:00:00 [place] [facility] Td 2019-03-03 Completed University of 00:00:00 [place] [facility] Td 2019-03-03 Completed University of 00:00:00 [place] [facility] Td 2019-03-03 Completed University of 00:00:00 [place] [facility] Td 2019-03-03 Completed University of 00:00:00 [place] [facility] Td 2019-03-03 Completed University of 00:00:00 [place] [facility] Td 2019-03-03 Completed University of 00:00:00 [place] [facility] Td 2019-03-03 Completed University of 00:00:00 [place] [facility] Td 2019-03-03 Completed University of 00:00:00 [place] [facility] Td 2019-03-03 Completed University of 00:00:00 [facility] Vital Signs Vital Name Observation Time Observation Value Comments Source Systolic blood 2022-02-04 19:21:00 120 mm[Hg] Univer sity of pressure [facility] Diastolic blood 2022-02-04 19:21:00 82 mm[Hg] Unive rsity of [facility] Heart rate 2022-02-04 19:21:00 103 /min [facility] Body temperature 2022-02-04 19:21:00 36.89 [facility] Res[facility] rate 2022-02-04 19:21:00 25 /min [facility] Body weight 2022-02-04 19:21:00 83.915 kg [facility] BMI 2022-02-04 19:21:00 28.13 kg/m2 [facility] Oxygen saturation in 2022-02-04 19:21:00 96 /min [facility] Arterial blood by [facility] Pulse oximetry Branch Systolic blood 2022-01-31 14:27:00 135 mm[Hg] Univer sity of pressure [facility] Diastolic blood 2022-01-31 14:27:00 91 mm[Hg] Unive rsity of pressure [facility] Heart rate 2022-01-31 14:27:00 99 /min Universi ty [facility] Respiratory rate 2022-01-31 14:27:00 18 /[facility] in 2022-01-31 14:27:00 96 /min University of Arterial blood by [facility] arturo Pulse oximetry Branch Body temperature 2022-01-31 00:14:00 37.33 Lela [facility] Body weight 2022-01-31 00:14:00 83.915 kg [facility] BMI 2022-01-31 00:14:00 28.13 kg/m2 [facility] Systolic blood 2022-01-27 04:14:00 110 mm[Hg] Univer sity of pressure [facility] Diastolic blood 2022-01-27 04:14:00 70 mm[Hg] Unive rsity of pressure [facility] Heart rate 2022-01-27 04:14:00 56 /min [facility] Respiratory rate 2022-01-27 04:14:00 18 /min [facility] Oxygen saturation in 2022-01-27 04:14:00 98 /min [facility] Arterial blood by [facility] Pulse oximetry Branch Body temperature 2022-01-27 00:11:00 36.83 Lela [facility] Systolic blood 2022-01-23 16:37:00 124 mm[Hg] Univer sity of pressure [facility] Diastolic blood 2022-01-23 16:37:00 85 mm[Hg] Unive rsity of pressure [facility] Heart rate 2022-01-23 16:37:00 85 /min [facility] Body temperature 2022-01-23 16:37:00 36.78 Lela [facility] Respiratory rate 2022-01-23 16:37:00 18 /min [facility] Oxygen saturation in 2022-01-23 16:37:00 94 /min [facility] Arterial blood by [facility] Pulse oximetry Branch Body height 2022-01-23 01:52:00 172.7 cm [facility] Body weight 2022-01-23 01:52:00 75.978 kg [facility] BMI 2022-01-23 01:52:00 25.47 kg/m2 [facility] Systolic blood 2022-01-16 15:59:00 125 mm[Hg] Univer sity of pressure [facility] Diastolic blood 2022-01-16 15:59:00 73 mm[Hg] Unive [facility]ity [facility] Heart rate 2022-01-16 15:59:00 66 /min [facility] Body temperature 2022-01-16 15:59:00 36.33 Lela [facility] Respiratory rate 2022-01-16 15:59:00 17 /min [facility] Oxygen saturation in 2022-01-16 15:59:00 97 /min [facility] blood by [place] [facility] Pulse oximetry Branch Body height 2022-01-15 03:16:00 172.7 cm [facility] Body weight 2022-01-15 03:16:00 80.967 kg [facility] BMI 2022-01-15 03:16:00 27.14 kg/m2 [facility] Systolic blood 2022-01-08 09:28:00 120 mm[Hg] Univer sity of pressure [facility] Diastolic blood 2022-01-08 09:28:00 77 mm[Hg] Unive rsity of pressure [facility] Heart rate 2022-01-08 09:28:00 123 /min [facility] Body temperature 2022-01-08 09:28:00 37.78 Lela [facility] Respiratory rate 2022-01-08 09:28:00 20 /min [facility] Body weight 2022-01-08 09:28:00 77.111 kg [facility] BMI 2022-01-08 09:28:00 25.85 kg/m2 [facility] Oxygen saturation in 2022-01-08 09:28:00 98 /min [facility] Arterial blood by [facility] arturo Pulse oximetry Branch Systolic blood 2021-12-08 22:24:00 111 mm[Hg] Univer sity of pressure [facility] Diastolic blood 2021-12-08 22:24:00 66 mm[Hg] Unive rsity of pressure [facility] Heart rate 2021-12-08 22:24:00 73 /min [facility] Body temperature 2021-12-08 22:24:00 36.94 Lela [facility] Respiratory rate 2021-12-08 22:24:00 16 /min [facility] Oxygen saturation in 2021-12-08 22:24:00 98 /min [facility] blood by [place] [facility] art[facility] Pulse oximetry Branch Body weight 2021-12-05 07:41:00 77.111 kg [facility] BMI 2021-12-05 07:41:00 25.85 kg/m2 [facility] Systolic blood 2021-11-22 05:19:00 136 mm[Hg] Univer sity of pressure [facility] Diastolic blood 2021-11-22 05:19:00 83 mm[Hg] Unive rsity of pressure [facility] Heart rate 2021-11-22 05:19:00 113 /min [facility] Respiratory rate 2021-11-22 05:19:00 19 /min [facility] Oxygen saturation in 2021-11-22 05:19:00 100 /min [facility] Arterial blood by [facility] Pulse oximetry Branch Body temperature 2021-11-22 02:47:00 36.61 Lela [facility] Body weight 2021-11-22 02:47:00 77.111 kg [facility] BMI 2021-11-22 02:47:00 25.85 kg/m2 [facility] Systolic blood 2021-09-24 09:06:00 130 mm[Hg] Univer sity of pressure [facility] Diastolic blood 2021-09-24 09:06:00 87 mm[Hg] Unive rsity of pressure [facility] Heart rate 2021-09-24 09:06:00 115 /min [facility] Respiratory rate 2021-09-24 09:06:00 20 /min [facility] Oxygen saturation in 2021-09-24 09:06:00 96 /min [facility] blood by [place] [facility] art[facility] Pulse oximetry Branch Body temperature 2021-09-24 05:04:00 37 Lela [facility] Body height 2021-09-24 05:04:00 172.7 cm [facility] Body weight 2021-09-24 05:04:00 77.111 kg [facility] BMI 2021-09-24 05:04:00 25.85 kg/m2 [facility] Systolic blood 2020-04-16 17:31:00 146 mm[Hg] Univer sity of pressure [facility] Diastolic blood 2020-04-16 17:31:00 99 mm[Hg] Unive rsity of pressure [facility] Heart rate 2020-04-16 17:31:00 90 /min [facility] Respiratory rate 2020-04-16 17:31:00 18 /min [facility] Oxygen saturation in 2020-04-16 17:31:00 99 /min [facility] Arterial blood by [facility] arturo Pulse oximetry Branch Body temperature 2020-04-16 15:36:00 36.56 Lela [facility] Body weight 2020-04-16 15:36:00 68.04 kg [facility] BMI 2020-04-16 15:36:00 23.49 kg/m2 [facility] Systolic blood 2019-08-22 18:00:00 128 mm[Hg] Univer sity of pressure [facility] Diastolic blood 2019-08-22 18:00:00 84 mm[Hg] Unive rsity of pressure [facility] Heart rate 2019-08-22 18:00:00 76 /min [facility] Respiratory rate 2019-08-22 18:00:00 16 /min [facility] Oxygen saturation in 2019-08-22 18:00:00 99 /min [facility] Arterial blood by [facility] arturo Pulse oximetry Branch Body temperature 2019-08-22 10:53:00 36.78 Lela [facility] Body weight 2019-08-21 03:07:00 63.504 kg [facility] BMI 2019-08-21 03:07:00 21.93 kg/m2 [facility] Systolic blood 2019-08-22 18:00:00 128 mm[Hg] Univer sity of pressure [facility] Diastolic blood 2019-08-22 18:00:00 84 mm[Hg] Unive rsity of pressure [facility] Heart rate 2019-08-22 18:00:00 76 /min [facility] Respiratory rate 2019-08-22 18:00:00 16 /min [facility] Oxygen saturation in 2019-08-22 18:00:00 99 /min [facility] [place] [facility] Body temperature 2019-08-22 10:53:00 36.78 Lela [facility] Body weight 2019-08-21 03:07:00 63.504 kg [facility] BMI 2019-08-21 03:07:00 21.93 kg/m2 [facility] Systolic blood 2019-08-18 01:47:00 155 mm[Hg] Univer sity of pressure [facility] Diastolic blood 2019-08-18 01:47:00 90 mm[Hg] Unive rsity of pressure [facility] Heart rate 2019-08-18 01:47:00 102 /min [facility] Body temperature 2019-08-18 01:47:00 36.67 Lela [facility] Respiratory rate 2019-08-18 01:47:00 20 /min [facility] Body weight 2019-08-18 01:47:00 70.308 kg [facility] BMI 2019-08-18 01:47:00 24.28 kg/m2 [facility] Oxygen saturation in 2019-08-18 01:47:00 99 /min [facility] Arterial blood by [facility] Pulse oximetry Branch Systolic blood 2019-08-18 01:47:00 155 mm[Hg] Univer sity of pressure [facility] Diastolic blood 2019-08-18 01:47:00 90 mm[Hg] Unive rsity of pressure [facility] Heart rate 2019-08-18 01:47:00 102 /min [facility] Body temperature 2019-08-18 01:47:00 36.67 Lela [facility] Respiratory rate 2019-08-18 01:47:00 20 /min [facility] Body weight 2019-08-18 01:47:00 70.308 kg [facility] BMI 2019-08-18 01:47:00 24.28 kg/m2 [facility] Oxygen saturation in 2019-08-18 01:47:00 99 /min [facility] Arterial blood by [facility] arturo Pulse oximetry Branch Systolic blood 2019-08-13 23:34:00 119 mm[Hg] Univer sity of [facility] Diastolic blood 2019-08-13 23:34:00 67 mm[Hg] Unive rsity of pressure [facility] Heart rate 2019-08-13 23:34:00 85 /min [facility] Body temperature 2019-08-13 23:34:00 37.06 Lela [facility] Respiratory rate 2019-08-13 23:34:00 18 /min [facility] Body height 2019-08-13 23:34:00 170.2 cm [facility] Body weight 2019-08-13 23:34:00 68.947 kg [facility] BMI 2019-08-13 23:34:00 23.81 kg/m2 [facility] Oxygen saturation in 2019-08-13 23:34:00 99 /min [facility] blood by [place] [facility] Pulse oximetry Branch Systolic blood 2019-08-13 23:34:00 119 mm[Hg] Univer sity of pressure [facility] Diastolic blood 2019-08-13 23:34:00 67 mm[Hg] Unive rsity of pressure [facility] Heart rate 2019-08-13 23:34:00 85 /min [facility] Body temperature 2019-08-13 23:34:00 37.06 Lela [facility] Respiratory rate 2019-08-13 23:34:00 18 /min [facility] Body height 2019-08-13 23:34:00 170.2 cm [facility] Body weight 2019-08-13 23:34:00 68.947 kg [facility] BMI 2019-08-13 23:34:00 23.81 kg/m2 [facility] Oxygen saturation in 2019-08-13 23:34:00 99 /min [facility] of Arterial blood by [employer] arturo Pulse oximetry Branch Systolic blood 2019-03-03 08:00:00 143 mm[Hg] Univer sity of pressure [facility] Diastolic blood 2019-03-03 08:00:00 99 mm[Hg] Unive rsity of pressure [facility] Heart rate 2019-03-03 08:00:00 85 /min [facility] Respiratory rate 2019-03-03 08:00:00 16 /min Univ ersity of [facility] Oxygen saturation in 2019-03-03 08:00:00 99 /min [facility] Arterial blood by [facility] Pulse oximetry Branch Body weight 2019-03-03 07:55:00 72.122 kg Universi ty [facility] Body temperature 2019-03-03 07:42:00 36.94 Lela [facility] ersity of [facility] Systolic blood 2019-03-03 08:00:00 143 mm[Hg] Univer sity of pressure [facility] Diastolic blood 2019-03-03 08:00:00 99 mm[Hg] Unive rsity of pressure [facility] Heart rate 2019-03-03 08:00:00 85 /min Universi ty [facility] Respiratory rate 2019-03-03 08:00:00 16 /min Univ ersity of [facility] Oxygen saturation in 2019-03-03 08:00:00 99 /min [facility] Arterial blood by [facility] Pulse oximetry Branch Body weight 2019-03-03 07:55:00 72.122 kg Universi ty [facility] Body temperature 2019-03-03 07:42:00 36.94 Lela [facility] Height/Length 2021-07-15 10:28:49 172 cm Measured Weight Dosing 2021-07-15 10:28:49 65.00 kg Height/Length 2021-07-15 10:28:55 173 cm Measured Weight Dosing 2021-07-15 10:28:55 68.40 kg Height/Length 2021-07-15 10:28:49 173 cm Measured Weight Dosing 2021-07-15 10:28:49 68.40 kg Height/Length 2021-07-15 09:57:39 173 cm Measured Weight Dosing 2021-07-15 09:57:39 68.40 kg Height/Length 2021-07-15 09:34:41 173 cm Measured Weight Dosing 2021-07-15 09:34:41 68.40 kg Height/Length 2021-07-15 09:28:25 173 cm Measured Weight Dosing 2021-07-15 09:28:25 68.40 kg BP Diastolic 2020-08-03 15:36:00 81 mm[Hg] [facility] BP Systolic 2020-08-03 15:36:00 114 mm[Hg] [facility] Heart Rate 2020-08-03 15:36:00 69 /min [facility] Respiratory rate 2020-08-03 15:36:00 18 /min [facility] Body Temperature 2020-08-03 15:36:00 98.7 [degF] [facility] BP Diastolic 2020-08-03 15:10:00 81 mm[Hg] [facility] BP Systolic 2020-08-03 15:10:00 114 mm[Hg] [facility] Heart Rate 2020-08-03 15:10:00 69 /min [facility] Respiratory rate 2020-08-03 15:10:00 18 /min [facility] Body Temperature 2020-08-03 15:10:00 98.7 [degF] [facility] Procedures Procedure Date / Time Performing Clinician Source Performed COVID-19 (MOLECULAR 2022-01-31 09:18:00 Mariam Palencia [facility] TESTING [facility] NUCLEIC ACID AMPLIFICATION) URINALYSIS 2022-01-31 02:58:00 Mariam Palencia [facility] URINE DRUG (IMMUNOASSAY) 2022-01-31 02:58:00 Mariam Palencia [facility] nch SCREEN W/O REFLEX CREATINE KINASE 2022-01-31 01:37:00 Mariam Palencia [facility] THYROID STIMULATING 2022-01-31 01:37:00 Mariam Palencia [facility] HORMONE [facility] COMP. METABOLIC PANEL 2022-01-31 01:37:00 Mariam Palencia [facility] ([id number]) [facility] SALICYLATE 2022-01-31 01:37:00 Mariam Palencia [facility] ETHANOL 2022-01-31 01:37:00 Mariam Palencia [facility] CBC WITH DIFF 2022-01-31 01:37:00 Mariam Palencia [facility] COVID-19 (ID NOW RAPID 2022-01-31 01:37:00 Mariam Palencia [facility] TESTING) Medical [place] URINALYSIS 2022-01-27 02:59:00 Cindy Atkinson o f [facility] CREATINE KINASE 2022-01-27 02:40:00 [facility] LIPASE 2022-01-27 02:40:00 [facility] COMP. METABOLIC PANEL 2022-01-27 02:40:00 China [facility] ([id number]) Medical Branch CBC WITH DIFF 2022-01-27 02:40[facility] 2022-01-23 19:30:00 [facility] BASIC METABOLIC PANEL 2022-01-23 19:30[facility] ([facility], CL, CO2, GLUCOSE, Medica l Branch BUN, CREATININE, CA) CREATINE KINASE 2022-01-23 10:57:00 [facility] 2022-01-23 10:57:00 [facility] BASIC METABOLIC PANEL 2022-01-23 10:57:00 [facility] (NA, K, CL, CO2, GLUCOSE, Medica l Branch BUN, CREATININE, CA) CBC WITH DIFF 2022-01-23 10:57:00 [facility] CREATINE KINASE 2022-01-22 21:24:00 Roberto [facility] MYOGLOBIN SERUM 2022-01-22 21:24:00 [facility] COVID-19 (ID NOW RAPID 2022-01-22 21:24:00 Óscar Mejia [facility] TESTING) Medical Branch LAB ONLY COVID 2022-01-22 21:24:00 Roberto [facility] URINE DRUG (IMMUNOASSAY) 2022-01-22 10:41:00 Lyle Alberts [facility] DRUG Medical [facility] SCREEN URINALYSIS 2022-01-22 10:41:00 [facility]INE [facility] 2022-01-22 06:25:00 Lyle Alberts [facility] COMP. METABOLIC PANEL 2022-01-22 06:25:00 Lyle Alberts [facility] ([id number]) Medical Branch SALICYLATE 2022-01-22 06:25:[address] [facility] ETHANOL 2022-01-22 06:25:00 [facility] CBC WITH DIFF 2022-01-22 06:25:00 [facility] COVID-19 (ID NOW RAPID 2022-01-22 06:25:00 Lyle Alberts [facility] TESTING) Medical Branch LAB ONLY COVID 2022-01-22 06:25:00 Lex[facility] INTERPRETATION [facility] CREATINE KINASE 2022-01-16 09:08:[facility] 2022-01-16 09:08[facility]00 [facility] BAS[facility] MET[facility]OLIC PANEL 2022-01-16 09:08:00 Mary [facility] (NA, K, CL, CO2, GLUCOSE, [employer] Medica l Branch BUN, CREATININE, CA) CREATINE KINASE 2022-01-15 17:25:00 Saurabh [facility] CREATINE KINASE 2022-01-15 09:43:00 Saurabh [facility] MAGNESIUM 2022-01-15 09:43:00 Saurabh [facility] BASIC METABOLIC PANEL 2022-01-15 09:43:00 [facility] (NA, K, CL, CO2, GLUCOSE, Medica l Branch BUN, CREATININE, CA) CBC WITH DIFF 2022-01-15 09:43:00 Saurabh [facility] CREATINE KINASE 2022-01-14 22:44:00 Saurabh [facility] CREATINE KINASE 2022-01-14 17:43:00 Saurabh [facility] BASIC METABOLIC PANEL 2022-01-14 17:43:00 Saurabh [facility] (NA, K, CL, CO2, GLUCOSE, Medica l Branch BUN, CREATININE, CA) URINALYSIS 2022-01-14 05:31:00 Margo, [facility] URINE DRUG (IMMUNOASSAY) 2022-01-14 05:31:00 Norbert Aragon [facility] SCREEN W/O REFLEX CREATINE KINASE 2022-01-14 04:51:00 Margo [facility] COMP. METABOLIC PANEL 2022-01-14 04:51:00 Norbert Aragon [facility] ([id number]) [facility] SALICYLATE 2022-01-14 04:51:00 Margo [facility] ETHANOL 2022-01-14 04:51:00 Margo [facility] CBC WITH DIFF 2022-01-14 04:51:00 Margo [facility] COVID-19 (ID NOW RAPID 2022-01-14 04:51:00 Norbert Aragon [facility] TESTING) [facility] LAB ONLY COVID 2022-01-14 04:51:00 Margo [facility] URINALYSIS 2021-12-05 16:37:00 Mariam Hernandez [facility] URINE DRUG (IMMUNOASSAY) 2021-12-05 09:48:[address] [facility] SCREEN CREATINE KINASE 2021-12-05 08:34:00 Ld Franklin [facility] COMP. METABOLIC PANEL 2021-12-05 08:34:00 Ld Franklin [facility] ([id number]) [facility] ETHANOL 2021-12-05 08:34:00 Ld Franklin [facility] SERUM DRUG (IMMUNOASSAY) 2021-12-05 08:34:[address] [facility] SCREEN CBC WITH DIFF 2021-12-05 08:34:00 Ld Franklin [facility] COVID-19 (MOLECULAR 2021-12-05 08:34:00 Ld Franklin [facility] TESTING [facility] NUCLEIC ACID AMPLIFICATION) LAB ONLY COVID 2021-12-05 08:34:00 Ld Franklin [facility] CREATINE KINASE 2021-11-22 04:56:00 Robert Stevens [facility] CREATINE KINASE 2021-11-22 03:55:00 Robert Stevens [facility] COMP. METABOLIC PANEL 2021-11-22 03:55:00 Robert Stevens [facility] ([id number]) Medical Branch SALICYLATE 2021-11-22 03:10:00 Robert Stevens [facility] ETHANOL 2021-11-22 03:10:00 Robert Stevens [facility] CBC WITH DIFF 2021-11-22 03:10:00 Ju Stevensian Maria L [facility] acute hospital COVID-19 (ID NOW RAPID 2021-11-22 03:10:00 Robert Stevens [facility] TESTING) Medical Branch XR FINGERS 2 VW RIGHT 2020-04-16 16:58:04 Domitila Patel [facility] XR CERVICAL SPINE 3 VW 2020-04-16 16:57:12 Domitila Patel [facility] GALV/CLC ONLY - URINE 2019-08-21 04:53:00 Michael Carpenter [facility] DRUG (IMMUNOASSAY) - Medical [facility] COMPREHENSIVE DRUG SCREEN URINALYSIS 2019-08-21 04:53:00 Michael Carpenter [facility] CREATINE KINASE 2019-08-21 03:32:00 Maureen Acosta [facility] HEPATIC FUNCTION PANEL 2019-08-21 03:32:00 Michael Carpenter [facility] ([id number]) (ALB,T.PRO,BILI Medical Branch T,BU/BC,ALT,AST,ALK PHOS) BASIC METABOLIC PANEL 2019-08-21 03:32:00 Michael Carpenter [facility] (NA, K, CL, CO2, GLUCOSE, Medica l Branch BUN, CREATININE, CA) SALICYLATE 2019-08-21 03:32:00 Michael Carpenter [facility] ETHANOL 2019-08-21 03:32:00 [facility] WITH DIFFERENTIAL 2019-08-21 03:32:00 Michael Carpenter [facility] EMERGENCY DEPARTMENT 2019-08-20 06:01:00 Doctor Unassigned, [facility] DOCUMENTS [place] [facility] CT CERVICAL SPINE WO 2019-08-14 00:32:44 [facility] CT HEAD WO CONTRAST 2019-08-14 00:32:44 Lopez Acevedo [facility] XR CHEST 2 VW 2019-08-14 00:25:39 [facility] XR HAND 3+ VW RIGHT 2019-03-03 08:22:02 Anna Marie Diaz [facility] Encounters Start End Encounter Admission Attending Care Care Encounter Source Date/Time Date/Time Type Type Clinicians Facility Department ID 2022-03-30 Outpatient [facility] [id number] [place] 22:23:43 [id number] [facility] 2022-03-09 Emergency [facility] [id number] GAYE - 11:55:17 [place] [facility] 2022-01-22 Outpatient [facility] [id number] [place] 17:40:51 [id number] [facility] 2021-12-05 Outpatient [facility] [id number] [place] 15:34:09 [id number] [facility] 2021-04-20 Outpatient [facility] [id number] [facility] 22:53:11 [id number] [facility] 2019-09-01 Inpatient [facility] K[facility]LEE [id number] [facility] 06:12:00 46 [facility] 2019-08-31 Inpatient [facility] KAYLEE [id number] [facility] 19:06:00 66 [facility] 2022-03-21 2022-03-21 Outpatient CINDY_STEPHANI_ [facility] [id number] 00:00:00 00:00:00 [id number] [facility] 2022-03-09 2022-03-09 Outpatient CINDY_STEPHANI_ [facility] [id number] [place] 00:00:00 00:00:00 MD [facility] 2022-02-12 2022-02-13 [facility] [id number] [place] 08:44:00 20:25:00 On license of [facility] 2022-02-12 2022-02-12 Emergency 1 JEANMARIE RAMON [facility] [id number] [address] [place] 08:44:00 08:44:00 [facility] 2022-02-11 2022-02-11 Emergency Emergency [place], S[facility]m [facility] [id number] [facility] 04:57:00 09:50:00 Lukuman 71 2022-02-11 2022-02-11 [facility] Jose [id number] [facility] 04:57:00 04:57:00 71 2022-02-09 2022-02-10 Emergency E BIRGIT, [facility] 7501 [facility] 21:11:00 21:33:00 [facility] 2022-02-09 2022-02-09 Emergency E BIRGIT, M[facility] M[facility] 7500 [facility] 09:41:00 17:31:00 [facility] 2022-02-07 2022-02-07 Emergency Emergency Guirges, [facility] [id number] [facility] 11:37:00 20:30:00 Hemal 49 2022-02-07 2022-02-07 Emergency SJm [facility] [id number] [facility] 11:37:00 11:37:00 49 2022-02-07 2022-02-07 Emergency Emergency Afuwape, [facility] [id number] [facility] 00:06:00 07:50:00 Lukuman 29 2022-02-07 2022-02-07 Emergency Emergency Afuwape, [facility] [id number] [facility] 00:06:00 00:06:00 Lukuman 29 2022-02-05 2022-02-05 Emergency Emergency Ham, Jose [facility] [id number] [facility] 18:15:00 21:41:00 61 2022-02-05 2022-02-05 Emergency Emergency Guirges, [facility] [id number] [facility] 14:52:00 17:19:00 Hemal 27 2022-02-05 2022-02-05 [facility] [id number] [facility] 14:52:00 14:52:00 27 2022-02-04 2022-02-04 Emergency X TALHA [facility] ERT [id number] Univers 14:23:00 16:58:00 MARIAM ity [facility] 2022-02-04 2022-02-04 Emergency Palencia, TRAUMA 1.2.019.858 [id number] Univers 14:23:00 16:58:00 Mariam CENTER 350.1.13.10 [place] [id number] [address] 2022-01-30 2022-01-31 Emergency X MARCOS VILLA [facility] ERT [id number] Univers 19:17:00 10:00:00 DAISY MARCOS tiburciomarlee [facility] 2022-01-30 2022-01-31 Emergency Mariam [place] TRAU[place] 1.2.840 .114 [id number] Univers 19:17:00 10:00:00 Marcos Villa [facility] 350.1.13.10 [place] [id number] [address] 2022-01-26 2022-01-26 Emergency X SONNANY Pascal [facility] ERT 1 [id number] Univers 19:15:00 23:37:00 NANY SON ity of [facility] 2022-01-26 2022-01-26 Emergency Cindy Atkinson TRAUMA 1.2.840.1 14 [id number] Univers 19:15:00 23:37:00 Nany Son [facility] 350.1.13.10 [place] [id number] [address] 2022-01-22 2022-01-23 Inpatient X MANUELITO, [facility] CATARINO [id number] Univers 00:46:00 17:25:00 [facility] 2022-01-22 2022-01-23 [facility] Lyle Alberts 1.2.840.1 14 [id number] Univers 00:46:00 17:25:00 Óscar Ovalle 350.1.13.10 ity of [facility] 4.2.7.2. 686 [place] Kiko Tatum Mirtha [id number] Medical 5 Branch 2022-01-19 2022-01-19 Transition IAN Martinez 1.2.840.114 [id number] Univers 00:00:00 00:00:00 of Care Adonis FREEMAN 350.1.13.10 [place] [id number] [facility] 403 Branch 2022-01-13 2022-01-16 Inpatient X BELÉN [facility] CAT[facility] [id number] Univers 18:13:00 17:03:00 JAMES ity of [facility] 2022-01-13 2022-01-16 [facility] Norbert Aragon 1.2.840. 114 [id number] Univers 18:13:00 17:03:00 Encounter Nany Son 350.1.13.10 ity of [facility] 4.2.7.2.686 [place] BelénJames Johnny [id number] [address] 2022-01-08 2022-01-08 Emergency X MARIA INES BALLESTEROS [facility] ERT 1 [id number] Univers 04:31:00 07:37:00 MARIA INES BALLESTEROS ity of [facility] 2022-01-08 2022-01-08 Emergency Kalpesh, TRAU[place] 1.2.462.946 [id number] Univers 04:31:00 07:37:00 [facility] 350.1.13.10 [place] [id number] [facility] 014 Branch 2021-12-05 2021-12-08 Emergency X PERFECTO GUTIERRES [facility] ERT 1 [id number] Univers 02:46:00 18:40:00 PERFECTO GUTIERRES ity of [facility] 2021-12-05 2021-12-08 [address] Franklin J TRAUMA 1.2.840.1 14 [id number] Univers 02:46:00 18:40:00 Mariam Hernandez [facility] 350.1.13.10 ity of Perfecto Gutierres 4.2.7.2.686 [place] Lucien Alfaro [id number] [facility] Vipul Barreto [place] [address] Branch Shyanne Pyle 2021-11-21 2021-11-22 Emergency X ROBERT STEVENS [facility] ERT [id number] Univers 21:50:00 00:44:00 ity of [facility] 2021-11-21 2021-11-22 Emergency Robert Stevens TRAUMA 1.2.840.114 [id number] Univers 21:50:00 00:44:00 [facility] 350.1.13.10 it y 4.2.7.2.686 [facility] [id number] [facility] 014 Branch 2021-09-24 2021-09-24 Emergency X AMANDA Domitila [facility] ERT [id number] Univers 00:12:00 04:10:00 ity of [facility] 2021-09-24 2021-09-24 Emergency AmandaDomitila [facility] 1.2.840.114 [id number] Univers 00:12:00 04:10:00 Dayana SIMPSON 350.1.13.10 i ty [facility] 4.2.7.2.686 [facility] [id number] [facility] 084 Branch 2020-08-03 2020-08-03 Departed CAROLYNN PAN [id number] CHRISTU 15:06:00 15:37:00 Emergency [facility] 2020-04-16 2020-04-16 Emergency AmandaDomitila [facility] 1.2.840.114 [id number] Univers 10:38:00 14:15:00 Dayana Simpson 350.1.13.10 i ty of [place] 4.2.7.2.686 [facility] [id number] [place] [address] Branch 2020-04-16 2020-04-16 Emergency X AMANDA Domitila [facility] ERT [id number] Univers 10:38:00 10:38:00 ity [facility] 2019-09-20 2019-09-20 Outpatient [facility] [id number] [place]ana 00:00:00 00:00:00 Health 2019-08-31 2019-08-31 Emergency [facility] MED [id number] [place] 01:49:22 01:49:22 Health 2019-08-20 2019-08-22 Emergency Schoenstein, Michael TRAUMA 1.2.8 40.114 [id number] Univers 21:07:32 13:58:00 Lucien Alfaro E CENTER 350.1.13.10 [place] [id number] [address] 2019-08-20 2019-08-22 Emergency Schoenstein, Michael TRAUMA 1.2.8 40.114 [id number] 21:07:32 13:58:00 Lucien Alfaro E CENTER 350.1.13.10 4.2.7.2.686 [id number] 014 2019-08-20 2019-08-20 Emergency X SCHOENSTEIN [facility] ERT [id number] Univers 21:07:32 21:07:32 , MICHAEL ity [facility] 2019-08-17 2019-08-17 Emergency X CHELSEA, [facility] ERT [id number] Univers 19:59:42 20:28:00 KATYE ity [facility] 2019-08-17 2019-08-17 Emergency Chelsea, TRAUMA 1.2.586.987 [id number] Univers 19:59:42 20:28:00 Katye R CENTER 350.1.13.10 [place] [id number] [address] 2019-08-17 2019-08-17 Emergency Chelsea, TRAUMA 1.2.497.499 [id number] 19:59:42 20:28:00 Katye R CENTER 350.1.13.10 4.2.7.2.686 [id number] 014 2019-08-13 2019-08-13 Emergency X MORRICAL, [facility] ERT [id number] Univers 17:35:49 19:40:00 LOPEZ ity [facility] 2019-08-13 2019-08-13 Emergency Morrical, TRAUMA 1.2.840.114 [id number] Univers 17:35:49 19:40:00 Lopez O CENTER 350.1.13.10 [place] [id number] [address] 2019-08-13 2019-08-13 Emergency Morrical, TRAUMA 1.2.840.114 [id number] 17:35:49 19:40:[address] [facility] 350.1.13.10 4.2.7.2.686 [id number] 014 2019-03-03 2019-03-03 Emergency [facility], [facility] 1.2.152.678 [id number] [facility] 02:40:06 03:52:00 Anna Marie Simpson 350.1.13.10 ity of [place] 4.2.7.2.686 [facility] [id number] [facility] 084 Branch 2019-03-03 2019-03-03 Emergency [facility] 1.2.333.342 [id number] 02:40:06 03:52:00 Anna Marie Simpson 350.1.13.10 [place] 4.2.7.2.686 [place] [id number] [facility] 2019-02-17 2019-02-17 Emergency [facility] [id number] Max 07:34:17 07:34:17 Health 2019-02-17 2019-02-17 Emergency [facility] [id number] Max 02:21:51 02:21:51 [facility] 2019-01-21 2019-01-31 Inpatient 1 [facility] [id number] [facility] 10:32:00 13:54:00 En [facility] 2019-01-21 2019-01-[address]114 [id number] [facility] 15:06:32 23:59:00 Encounter Riyaima TARIQ 350.1.13.10 ity of [facility] 4.2.7.2.686 [facility] [id number] [facility] 060 Branch 2019-01-21 2019-01-21 [facility] 12.840.114 [id number] 15:06:32 23:59:00 Encounter En TARIQ 350.1.13.10 MEDICAL 4.2.7.2.686 CENTER [id number] 060 2018-11-01 2018-11-09 Inpatient 1 [facility] [id number] [facility] 14:32:00 13:51:00 En [facility]ota [facility] Results Test Description Test Time Test Comments Results Result Comments Source SARS-CoV-2 RNA Resp Ql VANE+probe 2022-02-12 14:18:35 Test Item Value Reference Range Interpretation Comme nts Hospitalized? (test code = Yes 10122-5) ICU? (test code = 49061-5) No Symptomatic as defined by CDC? 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 (test No code = 20538-3) Resident in a congregate care No setting (including nursing homes, residential care for people with intellectual and developmental disabilities, psychiatric treatment facilities, group homes, board and care homes, homeless alf, foster care or other): (test code = 37935-2) SARS-CoV-2 RNA Resp Ql NOT DETECTED Not Detected INTER PRETATION: No VANE+probe (test code = [place] [address]-7) SARS-CoV-2 Kennedy navirus (COVID-19) were present in [...] its performance characteristics were verified by the [facility] molecular diagnostics laboratory and is authorized for clinical diagnostic use. This laboratory is certified under the Clinical Laboratory Improvement Amendments (CLIA) as qualified to perform high complexity clinical laboratory testing.UA, Urinalysis Rflx Cult/Cpowi0222-59-55 05:36:00 Test Item Value Reference Range Interpretation Comments Color,Urine (test code = UCOL) Yellow Yellow Clarity,Urine (test code = Clear Clear UCLAR) Ph, Urine (test code = UPH) 7.0 5.0-9.0 N Specific [place],Urine (test 1.025 1.005-1.030 N code = USG) [...] = ULEU) UF REFLEXComplete Blood Count Auto [id number] 05:36:00 Test Item Value Reference Range Interpretation [...] (test code = NRBCP) 0 % Urine Pcrmmkdoidw2489-85-45 05:36:00 Test Item Value Reference Range Interpretation Comments RBC,Urine (test code = URBC.PIPING ENGINEER) 0-2 /HPF 0-2 WBC,Urine (test code = UWBC.PIPING ENGINEER) 0-5 /HPF 0-5 Bacteria,Urine (test code = Few /HPF None Seen A UBACT.PIPING ENGINEER) Squamous Epithelial Cell,Urine (test 0-5 /HPF 0-5 code = USQEPI.PIPING ENGINEER) Amorphous Crystals,Urine (test code Few /HPF None Seen A = UAMSE) Hyaline Casts,Urine (test code = 0-2 None Seen A UHYALC.XX) Granular Casts,Urine (test code = 0-1 None Seen A UGRANC.XX) UF REFLEXComprehensive Metabolic Mdiwr5840-39-47 05:36:00 Test Item Value Reference Range Interpretation [...] 74 U/L 46-116 N = ALP) Ethanol [id number] 05:36:00 Test Item Value Reference Range Interpretation Comments Ethanol (test code 3 mg/dL The pharm acological = ETOH) response to blo od alcohol levels mayvary from individual to i ndividual. The fatal giovanna ntrationhas been reported t o be >400mg/dL. Drug Screen,[id number] 05:36:00 Test Item Value Reference Range Interpretation [...] (test code = UPROP) Coronavirus PCR, COVID19 Wzstk5803-97-65 05:36:00 Test Item Value Reference Range Interpretation Comments Coronavirus PCR, COVID19 Rapid (test code = SARSCOV2) Coronavirus PCR, COVID19 Reference Range: Rapid (test code = Negative XTQYXKF76.1) SARS-CoV-2 PCR Result: Negative by RT-PCR (test code = SARS-CoV-2 PCR Result:) COVID-19 Status: AsymptomaticUA, Urinalysis Rflx Cult/Iqkyh9775-72-50 12:22:00 Test Item Value Reference Range Interpretation Comments Color,Urine (test code = UCOL) Yellow Yellow Clarity,Urine (test code = Clear Clear UCLAR) Ph, Urine (test code = UPH) 5.5 5.0-9.0 N [place],Urine (test 1.015 1.005-1.030 N code = USG) [...] Negative code = ULEU) UF REFLEXUF REFLEXUrine Mmvscpmxokm9008-86-95 12:22:00 Test Item Value Reference Range Interpretation Comments RBC,Urine (test code = URBCUF) None Seen /HPF 0-2 WBC,Urine (test code = UWBCUF) 0-5 /HPF 0-5 Epithelial Cell,Urine (test 0-5 /HPF 0-5 code = UECUF) Casts,Urine (test code = 0-5 /LPF None Seen UCASTUF) Bacteria,Urine (test code = None Seen /hpf None Seen UBACTUF) UF REFLEXUF REFLEXDrug Screen,Jdulx9759-41-25 12:22:00 Test Item Value Reference Range Interpretation [...] code = UPROP) Complete Blood Count Auto Bowg1830-55-18 11:59:00 Test Item Value Reference Range Interpretation [...] code = NRBCP) 0 % Comprehensive Metabolic Cdfpe3608-14-57 11:59:00 Test Item Value Reference Range Interpretation [...] 68 U/L 46-116 N = ALP) Ethanol Izxmt8133-81-57 11:59:00 Test Item Value Reference Range Interpretation Comments Ethanol (test code < 3 mg/dL The pharm acological = ETOH) response to blo od alcohol levels mayvary from individual to i ndividual. The fatal giovanna ntrationhas been reported t o be >400mg/dL. UA, Urinalysis Rflx Cult/Ifxzq1182-35-70 04:55:00 Test Item Value Reference Range Interpretation Comments Color,Urine (test code = UCOL) Yellow Yellow Clarity,Urine (test code = Clear Clear UCLAR) Ph, Urine (test code = UPH) 5.5 5.0-9.0 N [place],Urine (test 1.010 1.005-1.030 N code = USG) [...] Negative mg/dL Negative code = ULEU) Drug Screen,[id number] 04:55:00 Test Item Value Reference Range Interpretation [...] Negative Urine (test code = UPROP) Lactic [id number] 04:50:00 Test Item Value Reference Range Interpretation Comments Lactic Acid (test code = LACTIC) 1.0 mmol/L 0.5-2.0 N Troponin I High Frzfroevrhs8865-54-78 04:40:00 Test Item Value Reference Range Interpretation [...] evaluated in conjunctionwith clinical findin gs. Creatine Siotoj2976-42-03 01:15:00 Test Item Value Reference Range Interpretation Comments Creatine Kinase (test code = CK) 477 U/L 46-171 H Troponin I High Drmfzdrimsp0012-70-17 01:15:00 Test Item Value Reference Range Interpretation [...] evaluated in conjunctionwith clinical findin gs. Lactic Aray3037-31-89 01:15:00 Test Item Value Reference Range Interpretation Comments Lactic Acid (test 4.5 mmol/L 0.5-2.0 HH Critical v alue called code = LACTIC) to walter schuster ck by amber marcus[] on: 02/07/22 at 021 4by RDB11. Lactic Acid Collected YProthrombin Time QPW2588-16-67 01:15:00 Test Item Value Reference Range Interpretation [...] 3.5 Mechanical Hear t, Intracardiac Thrombosis. Blood Zxhsnwo7533-12-87 01:15:00 Test Item Value Reference Range Interpretation Comments Blood Culture (test NO GROWTH AFTER 5 DAYS code = BC) Blood Lqziyea7681-97-60 01:15:00 Test Item Value Reference Range Interpretation Comments Blood Culture (test NO GROWTH AFTER 5 DAYS code = BC) Complete Blood Count Auto Lykm8860-16-15 00:39:00 Test Item Value Reference Range Interpretation [...] code = NRBCP) 0 % Comprehensive Metabolic [id number] 00:39:00 Test Item Value Reference Range Interpretation [...] 73 U/L 46-116 N = ALP) Ethanol Ihoua1556-46-24 00:39:00 Test Item Value Reference Range Interpretation Comments Ethanol (test code < 3 mg/dL The pharm acological = ETOH) response to blo od alcohol levels mayvary from individual to i ndividual. The fatal giovanna ntrationhas been reported t o be >400mg/dL. Coronavirus PCR, COVID19 Uuwjk1338-40-75 00:20:00 Test Item Value Reference Range Interpretation Comments Coronavirus PCR, For use under Emergency COVID19 Rapid (test Use Authorization (EUA) code = SARSCOV2) only. Coronavirus PCR, Reference Range: COVID19 Rapid (test Negative code = ZYVWXKO86.1) SARS-CoV-2 PCR Result: Negative by RT-PCR (test code = SARS-CoV-2 PCR Result:) COVID-19 Status: AsymptomaticUA, Urinalysis Rflx Cult/Jmsrn9328-17-12 15:17:00 Test Item Value Reference Range Interpretation Comments Color,Urine (test code = UCOL) Yellow Yellow Clarity,Urine (test code = Clear Clear UCLAR) Ph, Urine (test code = UPH) 6.0 5.0-9.0 N [place],Urine (test >= 1.030 1.005-1.030 N code = [...] Negative code = ULEU) UF REFLEXUF REFLEXUrine Srpqxgnmnvt3266-55-45 15:17:00 Test Item Value Reference Range Interpretation Comments RBC,Urine (test code = URBCUF) 0-2 /HPF 0-2 WBC,Urine (test code = UWBCUF) 6-10 /HPF 0-5 A Epithelial Cell,Urine (test None Seen /HPF 0-5 code = UECUF) Casts,Urine (test code = None Seen /LPF None Seen UCASTUF) Bacteria,Urine (test code = None Seen /hpf None Seen UBACTUF) UF REFLEXUF REFLEXComprehensive Metabolic [id number] 15:17:00 Test Item Value Reference Range Interpretation [...] 69 U/L 46-116 N = ALP) Ethanol Ooeaq9769-63-34 15:17:00 Test Item Value Reference Range Interpretation Comments Ethanol (test code < 3 mg/dL The pharm acological = ETOH) response to blo od alcohol levels mayvary from individual to i ndividual. The fatal giovanna ntrationhas been reported t o be >400mg/dL. Coronavirus PCR, COVID19 [id number] 15:17:00 Test Item Value Reference Range Interpretation Comments Coronavirus PCR, For use under Emergency COVID19 Rapid (test Use Authorization (EUA) code = SARSCOV2) only. Coronavirus PCR, Reference Range: COVID19 Rapid (test Negative code = AFODHHM81.1) SARS-CoV-2 PCR Result: Negative by RT-PCR (test code = SARS-CoV-2 PCR Result:) COVID-19 Status: AsymptomaticComplete Blood Count Auto [id number] 15:17:00 Test Item Value Reference Range Interpretation [...] (test code = NRBCP) 0 % Drug Screen,Fhfst6604-16-63 15:17:00 Test Item Value Reference Range Interpretation [...] Negative Negative Urine (test code = UPROP) Thyroid Stimulating Edubszb8999-31-51 02:36:01 Test Item Value Reference Range Interpretation Comments TSH (test code = See_Comment [Automated message] [id number]) The system [employer] generated this result transmitted ref erence range: 0.45 - 4 .70 mIU/L. The refe rence range was not u sed to interpret this result as normal/abnor mal. Lab Interpretation (test Normal code = 32204-8) [facility] with Qpbyqzrjgrvw4749-23-83 02:18:20 Test Item Value Reference Range Interpretation Comments WBC (test code = See_Comment H [Automated 1132-2) message] The system which generated this result transmit lázaro reference range : 4.20 - 10.70 10*3/?L. The reference range was not used to interpret this result as normal/abnormal . RBC (test code = See_Comment [Automated 549-8) message] The system which generated this result transmit lázaro reference range : 4.26 - 5.52 10*6/?L. The reference range was not used to interpret this result as normal/abnormal . HGB (test code = 15.7 g/dL 12.2-16.4 718-7) HCT (test code = 45.2 % 38.4-49.3 4544-3) MCV (test code = 85.0 fL 81.7-95.6 787-2) MCH (test code = 29.5 pg 26.1-32.7 785-6) MCHC (test code = 34.7 g/dL 31.2-35 786-4) RDW-SD (test code = 41.8 fL 38.5-51.6 14164-2) RDW-CV (test code = 13.5 % 12.1-15.4 788-0) PLT (test code = See_Comment H [Automated 447-3) message] The system which generated this result transmit lázaro reference range : 150 - 328 10*3/ ?L. The reference range was not u sed to interpret th is result as normal/abnormal . MPV (test code = 10.9 fL 9.8-13 27473-4) NRBC/100 WBC (test See_Comment [Automat ed code = 7408796430) message] The system which generated this result transmit lázaro reference range : 0.0 - 10.0 /100 WBCs. The reference range was not used to interpret this result as normal/abnormal . NRBC x10^3 (test code See_Comment [Auto mated = 6879860538) message] The system which generated this result transmit lázaro reference range : 10*3/?L. The reference range was not used to interpret this result as normal/abnormal . GRAN MAT (NEUT) % 89.5 % (test code = 770-8) IMM GRAN % (test code 0.60 % = 9350255085) LYMPH % (test code = 4.7 % 736-9) MONO % (test code = 4.9 % 5905-5) EOS % (test code = 0.0 % 713-8) BASO % (test code = 0.3 % 706-2) GRAN MAT x10^3(ANC) 15.88 10*3/uL 1.99-6.95 H (test code = 5584862992) IMM GRAN x10^3 (test 0.11 10*3/uL 0-0.06 H code = 6813652456) LYMPH x10^3 (test code 0.83 10*3/uL 1.09-3.23 L = 731-0) MONO x10^3 (test code 0.87 10*3/uL 0.36-1.02 = 742-7) EOS x10^3 (test code = 0.06-0.53 L 711-2) BASO x10^3 (test code 0.06 10*3/uL 0.01-0.09 = 704-7) Lab Interpretation Abnormal (test code = 89356-3) [facility] 02:11[facility]53 SALICYLATE<10mg/L01/30/2022 9:11 PM CDTUTMB LABORATORY SERVICESTherapeutic Range: ? Analgesic and Antipyretic Use ? 20-100 mg/L ? ? Anti- Inflammatory Use ? 100-250 mg/L Toxic Range: ? Greater than 300 mg/LUnGrace Medical CenterEthanol (ETOH) Jxzhu0209-40-37 02:11:48ALCOHOL<10mg/dL01/30/2022 9:11 PM CDTUTMB LABORATORY SERVICESToxic Greater than or equal to 80 mg/dL. NOTE: Whole blood values are approximately 10% to 15% lower than serum and plasma.[facility]neAcetaminophen2022-08-06 02:07:57 Test Item Value Reference Range Interpretation Comments ACETAMINOP (test code = 10-30 L 0610673052) JAYLON (test code = JAYLON) Toxic: Greater than 200 ug/mL @ 4 hour post ingestion or greater than 50 ug/mL @ 12 hour post ingestion Lab Interpretation (test Abnormal code = 55268-3) [facility]neComprehensive Metabolic Panel (88248) 2022-01-31 02:03:55 Test Item Value Reference Range Interpretation Comments NA (test code = 143 mmol/L 135-145 9682277105) K (test code = 4.7 mmol/L 3.5-5 5084720481) CL (test code = 108 mmol/L 98-108 2865605915) CO2 TOTAL (test code = 21 mmol/L 23-31 L 4699482591) AGAP (test code = 2-16 1113252163) BUN (test code = 16 mg/dL 7-23 6982957518) GLUCOSE (test code = 119 mg/dL 70-110 H 3802530138) CREATININE (test code = 1.65 mg/dL 0.6-1.25 H 3684835316) TOTAL BILI (test code = 0.6 mg/dL 0.1-1.7 6493752086) CALCIUM (test code = 10.4 mg/dL 8.6-10.6 5636716325) T PROTEIN (test code = 9.1 g/dL 6.3-8.2 H 5676981298) ALBUMIN (test code = 5.7 g/dL 3.5-5 H 9388639046) ALK PHOS (test code = 92 U/L 34-122 3045726634) ALTv (test code = 21 U/L 5-50 1742-6) AST(SGOT) (test code = 31 U/L 13-40 9645146011) eGFR (test code = mL/min/1.73m2 7932520347) JAYLON (test code = JAYLON) Association of Glomerular Filtration Rate (GFR) and Staging of Kidney Disease* + --+ --+ ------+| GFR (mL/min/1.73 m2) ?| With Kidney Damage ?| ?Without Kidney Damage+ --------+ --------+ +| ?>90 ?| ?Stage one ?| ? Normal ?+ ---+ ---+ -------+| ?60-89 ?| ?Stage two ?| ? Decreased GFR ? + --+ --+ ------+| ?30-59 ?| ?Stage three ?| ? Stage three ? + --+ --+ ------+| ?15-29 ?| ?Stage four ? | ? Stage four ?+ ---+ ---+ -------+| ?<15 (or dialysis) ? ?| ?Stage five ? | ? Stage five ?+ ---+ ---+ -------+ *Each stage assumes the associated GFR level has been in effect for at least three months. ?Stages 1 to 5, with or without kidney disease, indicate chronic kidney disease. Notes: Determination of stages one and two (with eGFR >59mL/min/1.73 m2) requires estimation of kidney damage for at least three months as defined by structural or functional abnormalities of the kidney, manifested by either:Pathological abnormalities or Markers of kidney damage (including abnormalities in the composition of the blood or urine or abnormalities in imaging tests). Lab Interpretation Abnormal (test code = 50470-9) [facility]ne[facility] Klyuxl3436-48-65 02:03:55 Test Item Value Reference Range Interpretation Comments CK (test code = 3957347020) 531 U/L 33-194 H Lab Interpretation (test code = Abnormal 37324-5) [facility]ne[facility]. METABOLIC PANEL (01401)2022-01-27 03:11:03 Test Item Value Reference Range Interpretation Comments NA (test code = 140 mmol/L 135-145 9768958132) K (test code = 4.7 mmol/L 3.5-5 8740540574) CL (test code = 105 mmol/L 98-108 8088143670) CO2 TOTAL (test code 28 mmol/L 23-31 = 2874407712) AGAP (test code = 2-16 1646336154) BUN (test code = 11 mg/dL 7-23 1809478524) GLUCOSE (test code = 93 mg/dL 70-110 7389764329) CREATININE (test code 1.14 mg/dL 0.6-1.25 = [id number]) TOTAL BILI (test code 0.3 mg/dL 0.1-1.1 = 3397601485) CALCIUM (test code = 9.2 mg/dL 8.6-10.6 0784532519) T PROTEIN (test code 7.4 g/dL 6.3-8.2 = 1418212823) ALBUMIN (test code = 4.7 g/dL 3.5-5 6604848780) ALK PHOS (test code = 84 U/L 34-122 7879650178) ALTv (test code = 28 U/L 5-50 1742-6) AST(SGOT) (test code 31 U/L 13-40 = 7850540878) eGFR (test code = mL/min/1.73m2 7587796385) JAYLON (test code = JAYLON) Association of Glomerular Filtration Rate (GFR) and Staging of Kidney Disease* + + +- +| GFR (mL/min/1.73 m2) ?| With Kidney Damage ?| ?Without Kidney Damage+ ------+ ----+ ------+| ?>90 ?| ?Stage one ?| ? Normal ?+ -+ + -+| ?60-89 ?| ?Stage two ?| ? Decreased GFR ? + + +- +| ?30-59 ?| ?Stage three ?| ? Stage three ? + + +- +| ?15-29 ?| ?Stage four ? | ? Stage four ?+ -+ + -+| ?<15 (or dialysis) ? ?| ?Stage five ? | ? Stage five ?+ -+ + -+ *Each stage assumes the associated GFR level has been in effect for at least three months. ?Stages 1 to 5, with or without kidney disease, indicate chronic kidney disease. Notes: Determination of stages one and two (with eGFR >59mL/min/1.73 m2) requires estimation of kidney damage for at least three months as defined by structural or functional abnormalities of the kidney, manifested by either:Pathological abnormalities or Markers of kidney damage (including abnormalities in the composition of the blood or urine or abnormalities in imaging tests). [facility] [id number] 03:11:03 Test Item Value Reference Range Interpretation Comments CK (test code = 6522948194) 453 U/L 33-194 H Lab Interpretation (test code = Abnormal 88012-7) [facility] 03:11:03 Test Item Value Reference Range Interpretation Comments LIPASE (test code = 1714020017) 100 U/L 0-220 Lab Interpretation (test code = Normal 32353-0) [facility]neCB WITH [id number] 02:54:01 Test Item Value Reference Range Interpretation Comments WBC (test code = See_Comment [Automated 6990-2) message] The sy stem which generated this result transmitted reference range : 4.20 - 10.70 10*3/?L. The reference range was not used to interpret this result as normal/abnormal . RBC (test code = See_Comment [Automated 909-8) message] The sy stem which generated this result transmitted reference range : 4.26 - 5.52 10*6/?L. The reference range was not used to interpret this result as normal/abnormal . HGB (test code = 14.5 g/dL 12.2-16.4 718-7) HCT (test code = 42.9 % 38.4-49.3 4544-3) MCV (test code = 88.1 fL 81.7-95.6 787-2) MCH (test code = 29.8 pg 26.1-32.7 785-6) MCHC (test code = 33.8 g/dL 31.2-35 786-4) RDW-SD (test code = 42.4 fL 38.5-51.6 36426-9) RDW-CV (test code = 13.1 % 12.1-15.4 788-0) PLT (test code = See_Comment H [Automated 777-3) message] The sy stem which generated this result transmitted reference range : 150 - 328 10*3/ ?L. The reference r daja was not used to interpret this result as normal/abnormal . MPV (test code = 10.9 fL 9.8-13 66695-5) NRBC/100 WBC (test See_Comment [Automat ed code = 4822516118) message] The system which generated this result transmitted reference range : 0.0 - 10.0 /100 WBCs. The refer ence range was not u sed to interpret th is result as normal/abnormal . NRBC x10^3 (test code See_Comment [Auto mated = 2367378960) message] The s ystem which generated this result transmitted reference range : 10*3/?L. The reference range was not used to interpret this result as normal/abnormal . GRAN MAT (NEUT) % 60.6 % (test code = 770-8) IMM GRAN % (test code 0.20 % = 6785342016) LYMPH % (test code = 31.9 % 736-9) MONO % (test code = 5.1 % 5905-5) EOS % (test code = 1.4 % 713-8) BASO % (test code = 0.8 % 706-2) GRAN MAT x10^3(ANC) 5.72 10*3/uL 1.99-6.95 (test code = 1372952960) IMM GRAN x10^3 (test 0-0.06 code = 6052076010) LYMPH x10^3 (test code 3.01 10*3/uL 1.09-3.23 = 731-0) MONO x10^3 (test code 0.48 10*3/uL 0.36-1.02 = 742-7) EOS x10^3 (test code = 0.13 10*3/uL 0.06-0.53 711-2) BASO x10^3 (test code 0.08 10*3/uL 0.01-0.09 = 704-7) Lab Interpretation Abnormal (test code = 42100-7) [facility]neMYOGLOBIN [id number] 03:50:24 Test Item Value Reference Range Interpretation Comments MYOGLOB S (test code 266.9 ng/mL See_Comment H [Autom ated = 5612779239) message] The system which generated this result transmitted reference range : <=121.0. The reference range was not used to interpret this result as normal/abnormal . JAYLON (test code = JAYLON) Biotin has been reported to cause a negative bias, interpret results relative to patient's use of biotin. Lab Interpretation Abnormal (test code = 37943-4) [facility]CREATINE [id number] 22:44:03 Test Item Value Reference Range Interpretation Comments CK (test code = 9676052407) 3562 U/L 33-194 H Slight hemolysis Lab Interpretation (test Abnormal code = 34750-3) [facility]neACETAMINOPHEN2022-07-28 06:53:54 Test Item Value Reference Range Interpretation Comments ACETAMINOP (test code = 10-30 L 7506778807) JAYLON (test code = JAYLON) Toxic: Greater than 200 ug/mL @ 4 hour post ingestion or greater than 50 ug/mL @ 12 hour post ingestion Lab Interpretation (test Abnormal code = 59628-0) [facility]neSALICYLATE2022-07-28 06:53:34 SALICYLATE<10mg/L01/22/2022 1:53 AM [facility]ATORY SERVICESTherapeutic Range: ? Analgesic and Antipyretic Use ? 20-100 mg/L ? ? Anti- Inflammatory Use ? 100-250 mg/L Toxic Range: ? Greater than 300 mg/LUnGrace Medical CenterETHANOL2022-07-28 06:53:29ALCOHOL<10mg/dL01/22/2022 1:53 AM CDTUTMB LABORATORY SERVICESToxic Greater than or equal to 80 mg/dL. NOTE: Whole blood values are approximately 10% to 15% lower than serum and plasma.[facility] METABOLIC PANEL (14764)2022-01-22 06:49:56 Test Item Value Reference Range Interpretation Comments NA (test code = 143 mmol/L 135-145 0011432682) K (test code = 4.4 mmol/L 3.5-5 6465847357) CL (test code = 103 mmol/L 98-108 7405487495) CO2 TOTAL (test code = 25 mmol/L 23-31 6838329383) AGAP (test code = 2-16 9827147882) BUN (test code = 16 mg/dL 7-23 7598902091) GLUCOSE (test code = 138 mg/dL 70-110 H 8251010801) CREATININE (test code = 1.23 mg/dL 0.6-1.25 0953497701) TOTAL BILI (test code = 0.5 mg/dL 0.1-1.1 8804902822) CALCIUM (test code = 10.0 mg/dL 8.6-10.6 7873263157) T PROTEIN (test code = 8.3 g/dL 6.3-8.2 H 8110536667) ALBUMIN (test code = 5.3 g/dL 3.5-5 H 4144559545) ALK PHOS (test code = 79 U/L 34-122 7919333920) ALTv (test code = 44 U/L 5-50 1742-6) AST(SGOT) (test code = 36 U/L 13-40 7210069078) eGFR (test code = mL/min/1.73m2 6421618669) JAYLON (test code = JAYLON) Association of Glomerular Filtration Rate (GFR) and Staging of Kidney Disease* + --+ --+ ------+| GFR (mL/min/1.73 m2) ?| With Kidney Damage ?| ?Without Kidney Damage+ --------+ --------+ +| ?>90 ?| ?Stage one ?| ? Normal ?+ ---+ ---+ -------+| ?60-89 ?| ?Stage two ?| ? Decreased GFR ? + --+ --+ ------+| ?30-59 ?| ?Stage three ?| ? Stage three ? + --+ --+ ------+| ?15-29 ?| ?Stage four ? | ? Stage four ?+ ---+ ---+ -------+| ?<15 (or dialysis) ? ?| ?Stage five ? | ? Stage five ?+ ---+ ---+ -------+ *Each stage assumes the associated GFR level has been in effect for at least three months. ?Stages 1 to 5, with or without kidney disease, indicate chronic kidney disease. Notes: Determination of stages one and two (with eGFR >59mL/min/1.73 m2) requires estimation of kidney damage for at least three months as defined by structural or functional abnormalities of the kidney, manifested by either:Pathological abnormalities or Markers of kidney damage (including abnormalities in the composition of the blood or urine or abnormalities in imaging tests). Lab Interpretation Abnormal (test code = 15254-0) [facility]neCREATINE [id number] 06:49:56 Test Item Value Reference Range Interpretation Comments CK (test code = 6007838264) 602 U/L 33-194 H Lab Interpretation (test code = Abnormal 39763-7) [facility]neCBC WITH [id number] 06:33:58 Test Item Value Reference Range Interpretation Comments WBC (test code = See_Comment H [Automated 6690-2) message] The system which generated this result transmit lázaro reference range : 4.20 - 10.70 10*3/?L. The reference range was not used to interpret this result as normal/abnormal . RBC (test code = See_Comment [Automated 789-8) message] The system which generated this result transmit lázaro reference range : 4.26 - 5.52 10*6/?L. The reference range was not used to interpret this result as normal/abnormal . HGB (test code = 14.8 g/dL 12.2-16.4 718-7) HCT (test code = 42.2 % 38.4-49.3 4544-3) MCV (test code = 87.6 fL 81.7-95.6 787-2) MCH (test code = 30.7 pg 26.1-32.7 785-6) MCHC (test code = 35.1 g/dL 31.2-35 H 786-4) RDW-SD (test code = 42.5 fL 38.5-51.6 61577-2) RDW-CV (test code = 13.3 % 12.1-15.4 788-0) PLT (test code = See_Comment H [Automated 777-3) message] The system which generated this result transmit lázaro reference range : 150 - 328 10*3/ ?L. The reference range was not u sed to interpret th is result as normal/abnormal . MPV (test code = 10.9 fL 9.8-13 77331-2) NRBC/100 WBC (test See_Comment [Automat ed code = 8663930483) message] The system which generated this result transmit lázaro reference range : 0.0 - 10.0 /100 WBCs. The reference range was not used to interpret this result as normal/abnormal . NRBC x10^3 (test code See_Comment [Auto mated = 2776829286) message] The system which generated this result transmit lázaro reference range : 10*3/?L. The reference range was not used to interpret this result as normal/abnormal . GRAN MAT (NEUT) % 88.1 % (test code = 770-8) IMM GRAN % (test code 0.70 % = 7690778364) LYMPH % (test code = 6.3 % 736-9) MONO % (test code = 4.5 % 5905-5) EOS % (test code = 0.0 % 713-8) BASO % (test code = 0.4 % 706-2) GRAN MAT x10^3(ANC) 13.61 10*3/uL 1.99-6.95 H (test code = 0682940661) IMM GRAN x10^3 (test 0.11 10*3/uL 0-0.06 H code = 1383146208) LYMPH x10^3 (test code 0.98 10*3/uL 1.09-3.23 L = 731-0) MONO x10^3 (test code 0.70 10*3/uL 0.36-1.02 = 742-7) EOS x10^3 (test code = 0.06-0.53 L 711-2) BASO x10^3 (test code 0.06 10*3/uL 0.01-0.09 = 704-7) Lab Interpretation Abnormal (test code = 07271-7) [facility]neCREATINE [id number] 20:39:33 Test Item Value Reference Range Interpretation Comments CK (test code = 6502705452) 8585 U/L 33-194 H Lab Interpretation (test code = Abnormal 21918-5) [facility]CREATINE [id number] 02:54:18 Test Item Value Reference Range Interpretation Comments CK (test code = 1702731184) 12914 U/L 33-194 H Lab Interpretation (test code = Abnormal 68126-9) [facility]neCREATINE [id number] 20:01:07 Test Item Value Reference Range Interpretation Comments CK (test code = 33-194 H 3434819385) JAYLON (test code = JAYLON) CK is approximately 19,916 U/L with extended dilution Lab Interpretation Abnormal (test code = 48741-3) [facility] METABOLIC PANEL (NA, K, CL, CO2, GLUCOSE, BUN, CREATININE, CA)2022-01-14 18:24:47 Test Item Value Reference Range Interpretation Comments NA (test code = 135 mmol/L 135-145 4606021160) K (test code = 4.0 mmol/L 3.5-5 6351485038) CL (test code = 101 mmol/L 98-108 9808314719) CO2 TOTAL (test code = 27 mmol/L 23-31 2826080576) AGAP (test code = 2-16 1324230375) BUN (test code = 28 mg/dL 7-23 H 0880867749) GLUCOSE (test code = 93 mg/dL 70-110 8665371692) CREATININE (test code = 1.19 mg/dL 0.6-1.25 6508511037) CALCIUM (test code = 8.3 mg/dL 8.6-10.6 L 9682792178) eGFR (test code = mL/min/1.73m2 8498503196) JAYLON (test code = JAYLON) Association of Glomerular Filtration Rate (GFR) and Staging of Kidney Disease* + --+ --+ ------+| GFR (mL/min/1.73 m2) ?| With Kidney Damage ?| ?Without Kidney Damage+ --------+ --------+ +| ?>90 ?| ?Stage one ?| ? Normal ?+ ---+ ---+ -------+| ?60-89 ?| ?Stage two ?| ? Decreased GFR ? + --+ --+ ------+| ?30-59 ?| ?Stage three ?| ? Stage three ? + --+ --+ ------+| ?15-29 ?| ?Stage four ? | ? Stage four ?+ ---+ ---+ -------+| ?<15 (or dialysis) ? ?| ?Stage five ? | ? Stage five ?+ ---+ ---+ -------+ *Each stage assumes the associated GFR level has been in effect for at least three months. ?Stages 1 to 5, with or without kidney disease, indicate chronic kidney disease. Notes: Determination of stages one and two (with eGFR >59mL/min/1.73 m2) requires estimation of kidney damage for at least three months as defined by structural or functional abnormalities of the kidney, manifested by either:Pathological abnormalities or Markers of kidney damage (including abnormalities in the composition of the blood or urine or abnormalities in imaging tests). Lab Interpretation Abnormal (test code = 70727-5) [facility]neCreatine [id number] 08:14:23 Test Item Value Reference Range Interpretation Comments CK (test code = 33-194 H CK is approx imately 7771765758) 31,635 U/L with extended diluti on. Lab Interpretation Abnormal (test code = 53491-6) [facility]ne[facility]icylate2022-07-20 06:12:12 SALICYLATE<10mg/L01/14/2022 1:12 AM [facility] SERVICESTherapeutic Range: ? Analgesic and Antipyretic Use ? 20-100 mg/L ? ? Anti- Inflammatory Use ? 100-250 mg/L Toxic Range: ? Greater than 300 mg/LUnGrace Medical CenterEthanol (ETOH) [id number] 06:10:57ALCOHOL<10mg/dL01/14/2022 1:10 AM [facility] LABORATORY SERVICESToxic Greater than or equal to 80 mg/dL. NOTE: Whole blood values are approximately 10% to 15% lower than serum and plasma.[facility]neAcetaminophen2022-07-20 05:35:31 Test Item Value Reference Range Interpretation Comments ACETAMINOP (test code = 10-30 L 0427440463) JAYLON (test code = JAYLON) Toxic: Greater than 200 ug/mL @ 4 hour post ingestion or greater than 50 ug/mL @ 12 hour post ingestion Lab Interpretation (test Abnormal code = 30793-9) [facility]neComprehensive Metabolic Panel (51982) 2022-01-14 05:24:54 Test Item Value Reference Range Interpretation Comments NA (test code = 130 mmol/L 135-145 L 8434100961) K (test code = 4.4 mmol/L 3.5-5 Slight 4423150368) hemolysis CL (test code = 92 mmol/L 98-108 L 0120569565) CO2 TOTAL (test code 22 mmol/L 23-31 L = 2813739836) AGAP (test code = 2-16 5249242738) BUN (test code = 46 mg/dL 7-23 H Slight 9509057421) hemolysis GLUCOSE (test code = 106 mg/dL 70-110 8415554548) CREATININE (test code 2.89 mg/dL 0.6-1.25 H = 4662070345) TOTAL BILI (test code 1.5 mg/dL 0.1-1.1 H = 0858075391) CALCIUM (test code = 9.9 mg/dL 8.6-10.6 4565526947) T PROTEIN (test code 8.9 g/dL 6.3-8.2 H = 0722836309) ALBUMIN (test code = 5.6 g/dL 3.5-5 H 1053156421) ALK PHOS (test code = 76 U/L 34-122 Slight 8776509044) hemolysis ALTv (test code = 116 U/L 5-50 H 1742-6) AST(SGOT) (test code 468 U/L 13-40 H Slight = 9032722997) hemolysis eGFR (test code = mL/min/1.73m2 8373103082) JAYLON (test code = JAYLON) Association of Glomerular Filtration Rate (GFR) and Staging of Kidney Disease* + -----+ --------+ +| GFR (mL/min/1.73 m2) ?| With Kidney Damage ?| ?Without Kidney Damage+ +------- +---- --+| ?>90 ?| ?Stage one ?| ? Normal ?+ ------+ ---------+--------- +| ?60-89 ?| ?Stage two ?| ? Decreased GFR ? + -----+ --------+ +| ?30-59 ?| ?Stage three ?| ? Stage three ? + -----+ --------+ +| ?15-29 ?| ?Stage four ? | ? Stage four ?+ ------+ ---------+--------- +| ?<15 (or dialysis) ? ?| ?Stage five ? | ? Stage five ?+ ------+ ---------+--------- + *Each stage assumes the associated GFR level has been in effect for at least three months. ?Stages 1 to 5, with or without kidney disease, indicate chronic kidney disease. Notes: Determination of stages one and two (with eGFR >59mL/min/1.73 m2) requires estimation of kidney damage for at least three months as defined by structural or functional abnormalities of the kidney, manifested by either:Pathological abnormalities or Markers of kidney damage (including abnormalities in the composition of the blood or urine or abnormalities in imaging tests). Lab Interpretation Abnormal (test code = 84886-2) [facility] with [id number] 05:05:30 Test Item Value Reference Range Interpretation Comments WBC (test code = See_Comment H [Automated 2486-2) message] The system which generated this result transmit lázaro reference range : 4.20 - 10.70 10*3/?L. The reference range was not used to interpret this result as normal/abnormal . RBC (test code = See_Comment [Automated 936-8) message] The system which generated this result transmit lázaro reference range : 4.26 - 5.52 10*6/?L. The reference range was not used to interpret this result as normal/abnormal . HGB (test code = 15.7 g/dL 12.2-16.4 718-7) HCT (test code = 45.4 % 38.4-49.3 4544-3) MCV (test code = 85.3 fL 81.7-95.6 787-2) MCH (test code = 29.5 pg 26.1-32.7 785-6) MCHC (test code = 34.6 g/dL 31.2-35 786-4) RDW-SD (test code = 41.7 fL 38.5-51.6 30575-8) RDW-CV (test code = 13.4 % 12.1-15.4 788-0) PLT (test code = See_Comment [Automated 777-3) message] The system which generated this result transmit lázaro reference range : 150 - 328 10*3/ ?L. The reference range was not u sed to interpret th is result as normal/abnormal . MPV (test code = 11.1 fL 9.8-13 30587-1) NRBC/100 WBC (test See_Comment [Automat ed code = 7719017725) message] The system which generated this result transmit lázaro reference range : 0.0 - 10.0 /100 WBCs. The reference range was not used to interpret this result as normal/abnormal . NRBC x10^3 (test code See_Comment [Auto mated = 1043864524) message] The system which generated this result transmit lázaro reference range : 10*3/?L. The reference range was not used to interpret this result as normal/abnormal . GRAN MAT (NEUT) % 66.5 % (test code = 770-8) IMM GRAN % (test code 0.30 % = 4300136706) LYMPH % (test code = 24.2 % 736-9) MONO % (test code = 7.5 % 5905-5) EOS % (test code = 0.9 % 713-8) BASO % (test code = 0.6 % 706-2) GRAN MAT x10^3(ANC) 10.46 10*3/uL 1.99-6.95 H (test code = 7152403024) IMM GRAN x10^3 (test 0.05 10*3/uL 0-0.06 code = 4635358982) LYMPH x10^3 (test code 3.81 10*3/uL 1.09-3.23 H = 731-0) MONO x10^3 (test code 1.18 10*3/uL 0.36-1.02 H = 742-7) EOS x10^3 (test code = 0.14 10*3/uL 0.06-0.53 711-2) BASO x10^3 (test code 0.10 10*3/uL 0.01-0.09 H = 704-7) Lab Interpretation Abnormal (test code = 31807-0) [facility]OL2022-[facility]-10 09:33:00 Test Item Value Reference Range Interpretation Comments ALCOHOL (test code = <10 mg/dL 0550119667) JAYLON (test code = Toxic Greater than or JAYLON) equal to 80 mg/dL. NOTE: Whole blood values are approximately 10% to 15% lower than serum and plasma. [facility] DRUG (IMMUNOASSAY) - COMPREHENSIVE DRUG [id number] 09:30:14 Test Item Value Reference Range Interpretation Comments CHERI S (test code = Negative Negative 2491569592) BENZO S (test code = Negative Negative 9267392986) TRICYCLIC (test code = Negative Negative 1382340524) JAYLON (test code = JAYLON) Serum Drug Screen Cutoff Ranges Barbiturates ? ? - 3 mcg/mLBenzodiazepines ?- 50 ng/mLTCA ?- 300 ng/mL Test developed and characteristics determined by [facility] Laboratory Services. The results are to be used only for medical (i.e., treatment) purposes. Unconfirmed screening results must not be used for non-medical purposes (e.g., employment testing, legal testing). Lab Interpretation Normal (test code = 27271-9) [facility]. METABOLIC PANEL (16138)2021-12-05 09:18:49 Test Item Value Reference Range Interpretation Comments NA (test code = 138 mmol/L 135-145 0992915418) K (test code = 4.1 mmol/L 3.5-5.0 4715732317) CL (test code = 102 mmol/L 98-108 0621273645) CO2 TOTAL (test code = 22 mmol/L 23-31 L 1486594599) AGAP (test code = 2-16 9592922299) BUN (test code = 8 mg/dL 7-23 2612938589) GLUCOSE (test code = 168 mg/dL 70-110 H 9698416847) CREATININE (test code = 0.96 mg/dL 0.60-1.25 1089089138) TOTAL BILI (test code = 0.5 mg/dL 0.1-1.0 1807665734) CALCIUM (test code = 9.9 mg/dL 8.6-10.6 5744249916) T PROTEIN (test code = 8.9 g/dL 6.3-8.2 H 9661467350) ALBUMIN (test code = 5.5 g/dL 3.5-5.0 H 6265928617) ALK PHOS (test code = 81 U/L 34-122 5383789570) ALTv (test code = 21 U/L 5-50 1742-6) AST(SGOT) (test code = 28 U/L 13-40 8846313313) eGFR (test code = mL/min/1.73m2 0111146537) JAYLON (test code = JAYLON) Association of Glomerular Filtration Rate (GFR) and Staging of Kidney Disease* + --+ --+ ------+| GFR (mL/min/1.73 m2) ?| With Kidney Damage ?| ?Without Kidney Damage+ --------+ --------+ +| ?>90 ?| ?Stage one ?| ? Normal ?+ ---+ ---+ -------+| ?60-89 ?| ?Stage two ?| ? Decreased GFR ? + --+ --+ ------+| ?30-59 ?| ?Stage three ?| ? Stage three ? + --+ --+ ------+| ?15-29 ?| ?Stage four ? | ? Stage four ?+ ---+ ---+ -------+| ?<15 (or dialysis) ? ?| ?Stage five ? | ? Stage five ?+ ---+ ---+ -------+ *Each stage assumes the associated GFR level has been in effect for at least three months. ?Stages 1 to 5, with or without kidney disease, indicate chronic kidney disease. Notes: Determination of stages one and two (with eGFR >59mL/min/1.73 m2) requires estimation of kidney damage for at least three months as defined by structural or functional abnormalities of the kidney, manifested by either:Pathological abnormalities or Markers of kidney damage (including abnormalities in the composition of the blood or urine or abnormalities in imaging tests). Lab Interpretation Abnormal (test code = 71457-5) [facility]neCREATINE [id number] 09:18:09 Test Item Value Reference Range Interpretation Comments CK (test code = 6966591030) 348 U/L 33-194 H Lab Interpretation (test code = Abnormal 81145-9) [facility]CBC WITH [id number] 08:58:30 Test Item Value Reference Range Interpretation Comments WBC (test code = See_Comment H [Automated 6690-2) message] The system which generated this result transmit lázaro reference range : 4.20 - 10.70 10*3/?L. The reference range was not used to interpret this result as normal/abnormal . RBC (test code = See_Comment [Automated 789-8) message] The system which generated this result transmit lázaro reference range : 4.26 - 5.52 10*6/?L. The reference range was not used to interpret this result as normal/abnormal . HGB (test code = 15.0 g/dL 12.2-16.4 718-7) HCT (test code = 43.2 % 38.4-49.3 4544-3) MCV (test code = 83.7 fL 81.7-95.6 787-2) MCH (test code = 29.1 pg 26.1-32.7 785-6) MCHC (test code = 34.7 g/dL 31.2-35.0 786-4) RDW-SD (test code = 39.5 fL 38.5-51.6 83326-6) RDW-CV (test code = 13.0 % 12.1-15.4 788-0) PLT (test code = See_Comment [Automated 777-3) message] The system which generated this result transmit lázaro reference range : 150 - 328 10*3/ ?L. The reference range was not u sed to interpret th is result as normal/abnormal . MPV (test code = 10.7 fL 9.8-13.0 03671-5) NRBC/100 WBC (test See_Comment [Automat ed code = 3063176893) message] The system which generated this result transmit lázaro reference range : 0.0 - 10.0 /100 WBCs. The reference range was not used to interpret this result as normal/abnormal . NRBC x10^3 (test code <0.01 See_Comment [Auto mated = 8631178576) message] The system which generated this result transmit lázaro reference range : 10*3/?L. The reference range was not used to interpret this result as normal/abnormal . GRAN MAT (NEUT) % 84.9 % (test code = 770-8) IMM GRAN % (test code 0.40 % = 3405618056) LYMPH % (test code = 9.2 % 736-9) MONO % (test code = 5.2 % 5905-5) EOS % (test code = 0.0 % 713-8) BASO % (test code = 0.3 % 706-2) GRAN MAT x10^3(ANC) 11.66 10*3/uL 1.99-6.95 H (test code = 1196336273) IMM GRAN x10^3 (test 0.06 10*3/uL 0.00-0.06 code = 9407646261) LYMPH x10^3 (test code 1.26 10*3/uL 1.09-3.23 = 731-0) MONO x10^3 (test code 0.72 10*3/uL 0.36-1.02 = 742-7) EOS x10^3 (test code = <0.03 0.06-0.53 L 711-2) BASO x10^3 (test code 0.04 10*3/uL 0.01-0.09 = 704-7) Lab Interpretation Abnormal (test code = 68558-0) [facility]CRE[facility] [id number] 05:20:33 Test Item Value Reference Range Interpretation Comments CK (test code = [id number]) 1561 U/L 33-194 H Lab Interpretation (test code = Abnormal 31113-6) [facility] [id number] 04:27:03 Test Item Value Reference Range Interpretation Comments CK (test code = 2582700405) 3129 U/L 33-194 H Lab Interpretation (test code = Abnormal 32282-2) [facility] METABOLIC PANEL (95745)2021-11-22 04:11:07 Test Item Value Reference Range Interpretation Comments NA (test code = 139 mmol/L 135-145 3488006735) K (test code = 4.3 mmol/L 3.5-5.0 4418644794) CL (test code = 106 mmol/L 98-108 7194300874) CO2 TOTAL (test code = 25 mmol/L 23-31 8955873475) AGAP (test code = 2-16 2420978468) BUN (test code = 19 mg/dL 7-23 0830973105) GLUCOSE (test code = 119 mg/dL 70-110 H 3977624506) CREATININE (test code = 1.23 mg/dL 0.60-1.25 1653815289) TOTAL BILI (test code = 0.7 mg/dL 0.1-1.8 2793248222) CALCIUM (test code = 9.8 mg/dL 8.6-10.6 7629796315) T PROTEIN (test code = 8.3 g/dL 6.3-8.2 H 4265431515) ALBUMIN (test code = 5.3 g/dL 3.5-5.0 H 8311412070) ALK PHOS (test code = 77 U/L 34-122 5796757488) ALTv (test code = 38 U/L 5-50 1742-6) AST(SGOT) (test code = 63 U/L 13-40 H 1816990545) eGFR (test code = mL/min/1.73m2 4649008848) JAYLON (test code = JAYLON) Association of Glomerular Filtration Rate (GFR) and Staging of Kidney Disease* + --+ --+ ------+| GFR (mL/min/1.73 m2) ?| With Kidney Damage ?| ?Without Kidney Damage+ --------+ --------+ +| ?>90 ?| ?Stage one ?| ? Normal ?+ ---+ ---+ -------+| ?60-89 ?| ?Stage two ?| ? Decreased GFR ? + --+ --+ ------+| ?30-59 ?| ?Stage three ?| ? Stage three ? + --+ --+ ------+| ?15-29 ?| ?Stage four ? | ? Stage four ?+ ---+ ---+ -------+| ?<15 (or dialysis) ? ?| ?Stage five ? | ? Stage five ?+ ---+ ---+ -------+ *Each stage assumes the associated GFR level has been in effect for at least three months. ?Stages 1 to 5, with or without kidney disease, indicate chronic kidney disease. Notes: Determination of stages one and two (with eGFR >59mL/min/1.73 m2) requires estimation of kidney damage for at least three months as defined by structural or functional abnormalities of the kidney, manifested by either:Pathological abnormalities or Markers of kidney damage (including abnormalities in the composition of the blood or urine or abnormalities in imaging tests). Lab Interpretation Abnormal (test code = 92541-6) [facility] WITH [id number] 04:02:45 Test Item Value Reference Range Interpretation Comments WBC (test code = See_Comment H [Automated 6690-2) message] The sy stem which generated this result transmitted reference range : 4.20 - 10.70 10*3/?L. The reference range was not used to interpret this result as normal/abnormal . RBC (test code = See_Comment [Automated 789-8) message] The sy stem which generated this result transmitted reference range : 4.26 - 5.52 10*6/?L. The reference range was not used to interpret this result as normal/abnormal . HGB (test code = 16.5 g/dL 12.2-16.4 H 718-7) HCT (test code = 47.5 % 38.4-49.3 4544-3) MCV (test code = 87.6 fL 81.7-95.6 787-2) MCH (test code = 30.4 pg 26.1-32.7 785-6) MCHC (test code = 34.7 g/dL 31.2-35.0 786-4) RDW-SD (test code = 41.1 fL 38.5-51.6 59582-0) RDW-CV (test code = 13.0 % 12.1-15.4 788-0) PLT (test code = See_Comment H [Automated 777-3) message] The sy stem which generated this result transmitted reference range : 150 - 328 10*3/ ?L. The reference r daja was not used to interpret this result as normal/abnormal . MPV (test code = 11.1 fL 9.8-13.0 42516-3) IPF % (test code = 6.4 % 1.2-10.7 Platelet count 8432168548) measured by fluorescence method. NRBC/100 WBC (test See_Comment [Automat ed code = 5742262643) message] The system which generated this result transmitted reference range : 0.0 - 10.0 /100 WBCs. The refer ence range was not u sed to interpret th is result as normal/abnormal . NRBC x10^3 (test code <0.01 See_Comment [Auto mated = 4922143813) message] The s [employer] which generated this result transmitted reference range : 10*3/?L. The reference range was not used to interpret this result as normal/abnormal . GRAN MAT (NEUT) % 75.2 % (test code = 770-8) IMM GRAN % (test code 0.60 % = 0793340574) LYMPH % (test code = 11.8 % 736-9) MONO % (test code = 11.7 % 5905-5) EOS % (test code = 0.2 % 713-8) BASO % (test code = 0.5 % 706-2) GRAN MAT x10^3(ANC) 10.36 10*3/uL 1.99-6.95 H (test code = 6263933280) IMM GRAN x10^3 (test 0.08 10*3/uL 0.00-0.06 H code = 9871419605) LYMPH x10^3 (test 1.63 10*3/uL 1.09-3.23 code = 731-0) MONO x10^3 (test code 1.62 10*3/uL 0.36-1.02 H = 742-7) EOS x10^3 (test code 0.03 10*3/uL 0.06-0.53 L = 711-2) BASO x10^3 (test code 0.07 10*3/uL 0.01-0.09 = 704-7) REACT LYMPHS (test Rare code = 2960773113) Lab Interpretation Abnormal (test code = 37241-6) [facility]2022[facility]-28 03:45:36 Test Item Value Reference Range Interpretation Comments ALCOHOL (test code = <10 mg/dL 4006091367) JAYLON (test code = Toxic Greater than or JAYLON) equal to 80 mg/dL. NOTE: Whole blood values are approximately 10% to 15% lower than serum and plasma. [facility]neACETAMINOPHEN2022-05-28 03:44:16 Test Item Value Reference Range Interpretation Comments ACETAMINOP (test code = <10.0 10.0-30.0 L 6886587437) JAYLON (test code = JAYLON) Toxic: Greater than 200 ug/mL @ 4 hour post ingestion or greater than 50 ug/mL @ 12 hour post ingestion Lab Interpretation (test Abnormal code = 07041-3) [facility]neSALICYLATE2022-05-28 03:43:50 Test Item Value Reference Range Interpretation Comments SALICYLATE (test code <10 mg/L = 8338229087) JAYLON (test code = JAYLON) Therapeutic Range: ? Analgesic and Antipyretic Use ? 20-100 mg/L ? ? Anti-Inflammatory Use ? 100-250 mg/L Toxic Range: ? Greater than 300 mg/L [facility]neXR FINGERS 2 VW [id number] 18:42:56 No evidence of fracture or traumatic malalignment. Soft tissue swelling about the PIP joint. RL: 4951 End of report Ordering physician:Domitila PATEL CLINICAL HISTORY: ? ?pain Index finger TECHNIQUE: 2 views of the right second digit COMPARISON: ?None FINDINGS: No evidence of fracture. Bony alignment is maintained. Visualized jointsappear preserved. There is soft tissue swelling about the PIP joint. [facility], Radiant Results Inft User - 04/16/2020 1:43 PM CDTOrdering physician:Domitila PATEL CLINICAL HISTORY: pain Index fingerTECHNIQUE: 2 views of the right second digitCOMPARISON: None FINDINGS:No evidence of fracture. Bony alignment is maint ained. Visualized jointsappear preserved. There is soft tissue swelling about the PIP joint.IMPRESSIONNo evidence of fracture or traumatic malalignment.Soft tissue swelling about the PIP joint.RL: 4951End of report [facility] [id number] 18:38:591. No fracture or malalignment. 2. Minor spondylosis in the lower cervical spine. RL: [id number] End of Report EXAM: XR CERVICAL SPINE 3 VW ? ORDERING PHYSICIAN: ? Domitila ?AMANDA HISTORY: Neck pain. Injury. COMPARISON: none FINDINGS:Three views of the cervical spine. Visualization is from the skull basethrough the C7 vertebral body. There is normal vertebral body height andalignment. ?No acute fracture is identified. ?Minimal loss of disc spa ceheight is present at C6-7. Small anterior osteophytes are present from W0bjhwpye C7. There is straightening of the normal cervical lordosis, likelyrelated to presence of cervical collar. Prevertebralsoft tissues arenormal. The visualized lung apices are clear. [facility], Radiant Results Inft User - 04/16/2020 1:40 PM CDTEXAM: XR CERVICAL SPINE 3 VW ORDERING PHYSICIAN: Domitila PATEL HISTORY: Neck pain. Injury.COMPARISON: noneFINDINGS:Three views of the cervical spine. Visualization is from the skull basethrough the C7 vertebral body. There is normal vertebral body height andalignment. No acute fracture is i dentified. Minimal loss of disc spaceheight is present at C6-7. Small anterior osteophytes are present from H0ugqoxzv C7. There is straightening of the normal cervical lordosis, likelyrelated to presence of cervical collar. Prevertebral soft tissues arenormal. The visualized lung apices are clear.IMPRESSION1. No fracture or malalignment. 2. Minor spondylosis in the lower cervical spine.RL: [id number] of Report [facility] [id number] 15:01:00 Test Item Value Reference Range Interpretation [...] Dose Date: 06/28/00 Dose Time: HEPATIC FUNCTION [id number] 15:01:00 Test Item Value Reference Range Interpretation [...] ALKP) Last Dose Date: 06/28/00 Dose Time: [id number] 15:01:00 Test Item Value Reference Range Interpretation Comments ACETAMINOPHEN (test code = ACET) < 2.0 mcG/ML 10.0-30.0 L Last Dose Date: 06/28/00 Dose Time: [id number] 15:01:00 Test Item Value Reference Range Interpretation Comments ALCOHOL (test code = ALC) < 3 MG/DL 0-10 N Last Dose Date: 06/28/00 Dose Time: [id number] 07:32:00 Test Item Value Reference Range Interpretation Comments SALICYLATE (test code = ISA) < 1.7 MG/DL 2.8-20.0 THER L BASIC METABOLIC [id number] 07:24:00 Test Item Value Reference Range Interpretation [...] Dose Date: 06/28/00 Dose Time: HEPATIC FUNCTION [id number] 07:24:00 Test Item Value Reference Range Interpretation [...] ALKP) Last Dose Date: 06/28/00 Dose Time: [id number] 07:24:00 Test Item Value Reference Range Interpretation Comments ACETAMINOPHEN (test code = ACET) mcG/ML 10.0-30.0 Last Dose Date: 06/28/00 Dose Time: [id number] 07:24:00 Test Item Value Reference Range Interpretation [...] for culture: Suprapubic PainDRUGS OF ABUSE SCREEN [id number] 06:55:00 Test Item Value Reference Range Interpretation [...] culture: Suprapubic PainUA RFLX MICR CULT IF [id number] 06:44:00 Test Item Value Reference Range Interpretation [...] for culture: Suprapubic PainDRUGS OF ABUSE SCREEN [id number] 06:44:00 Test Item Value Reference Range Interpretation [...] culture: Suprapubic PainUA RFLX MICR CULT IF [id number] 06:43:00 Test Item Value Reference Range Interpretation [...] for culture: Suprapubic PainDRUGS OF ABUSE SCREEN [id number] 06:43:00 Test Item Value Reference Range Interpretation [...] CLEAN CATCHIndication for culture: Suprapubic PainCBC W/AUTO [id number] 06:40:00 Test Item Value Reference Range Interpretation [...] = NO DIFF/SCN CRITERIA MDIFF) CBC W/AUTO [id number] 21:39:00 Test Item Value Reference Range Interpretation [...] CONSISTA NT WITH AUTO DIFFERENTIAL. CBC W/AUTO [id number] 20:15:00 Test Item Value Reference Range Interpretation [...] code = DIFF/SCN CRITERIA MDIFF) COMPREHENSIVE METABOLIC [id number] 20:01:00 Test Item Value Reference Range Interpretation [...] Unit/L 50-136 N (test code = ALKP) CREATINE [id number] 06:52:00 Test Item Value Reference Range Interpretation Comments CK (test code = 0282420711) 514 U/L 33-194 H Lab Interpretation (test code = Abnormal 01153-1) [facility] 2 [id number] 05:55:00 Test Item Value Reference Range Interpretation Comments AMPHET (test code = Presumptive Positive Negative A 6631236291) CHERI U (test code = Negative Negative 1489122162) BENZO U (test code = Negative Negative 3217715854) Cocaine Metabolite (test Negative Negative code = 8643794240) METHADONE (test code = Negative Negative 0218956320) OPIATES (test code = Negative Negative 6169064391) PCP (test code = Negative Negative 8059992670) THC (test code = Presumptive Positive Negative A 9155578299) JAYLON (test code = JAYLON) Urine Drug Cutoff Ranges Cocaine: ? 150 ng/mLBenzodiazepines: ? ? 200 ng/mLMethadone: ? 300 ng/mLAmphetamine: ? 1,000 ng/mLOpiates: ? 300 ng/mLCannabinoids: ?50 ng/mLPhencyclidine: ? ? ? 25 ng/mLBarbiturates: ?200 ng/mL The results are to be used only for medical (i.e., treatment) purposes. Unconfirmed screening results must not be used for non-medical purposes (e.g., employment testing, legal testing). Lab Interpretation (test Abnormal code = 04393-3) [facility]neUrinalysis2020-02-24 05:07:00 Test Item Value Reference Range Interpretation Comments APPEARANCE (test code = Clear Clear 5841668906) COLOR (test code = Yellow Yellow 0775442452) PH (test code = 4.8-8.0 6260052376) SP GRAVITY (test code = 1.003-1.030 4148815428) GLU U QUAL (test code = Normal Normal 1573210826) BLOOD (test code = Negative Negative 9613338364) KETONES (test code = Negative Negative 2253388490) PROTEIN (test code = Negative Negative 2887-8) UROBILIN (test code = Normal Normal 1145694479) BILIRUBIN (test code = Negative Negative 9724681808) NITRITE (test code = Negative Negative 2152344368) LEUK ANDREW (test code = Negative Negative 5191905532) RBC/HPF (test code = <1 See_Comment [Autom ated message] 0957759797) The system [employer] generated this result transmitted ref erence range: 0 - 3 HP F. The reference range was not used to int erpret this result as normal/abnormal . WBC/HPF (test code = <1 See_Comment [Autom ated message] 1129216782) The system [employer] generated this result transmitted ref erence range: 0 - 5 HP F. The reference range was not used to int erpret this result as normal/abnormal . BACTERIA (test code = Negative Negative 6517786537) SQ EPITH (test code = <1 See_Comment [Auto mated message] 5661778380) The system [employer] generated this result transmitted ref erence range: <=2 HPF. The reference range was not used to int erpret this result as normal/abnormal . Lab Interpretation (test Normal code = 28781-8) [facility]neACETAMINOPHEN2020-02-24 03:53:00 Test Item Value Reference Range Interpretation Comments ACETAMINOP (test code = <10.0 10-30 L 7725143713) JAYLON (test code = JAYLON) Toxic: Greater than 200 ug/mL @ 4 hour post ingestion or greater than 50 ug/mL @ 12 hour post ingestion Lab Interpretation (test Abnormal code = 13572-2) [facility]AL[facility]ATE2020-02-24 03:53:00 Test Item Value Reference Range Interpretation Comments SALICYLATE (test code <10 mg/L = 6001528896) JAYLON (test code = JAYLON) Therapeutic Range: ? Analgesic and Antipyretic Use ? 20-100 mg/L ? ? Anti-Inflammatory Use ? 100-250 mg/L Toxic Range: ? Greater than 300 mg/L [facility] Metabolic Panel (NA, K, CL, CO2, GLUCOSE, BUN, CREATININE, CA)2019-08-21 03:52:00 Test Item Value Reference Range Interpretation Comments NA (test code = 138 mmol/L 135-145 4880739042) K (test code = 3.9 mmol/L 3.5-5 5110832455) CL (test code = 103 mmol/L 98-108 1511004169) CO2 TOTAL (test code = 26 mmol/L 23-31 0962921380) AGAP (test code = 2-16 8918590121) BUN (test code = 14 mg/dL 7-23 7666782644) GLUCOSE (test code = 106 mg/dL 70-110 5243489720) CREATININE (test code 0.83 mg/dL 0.6-1.25 = 1177199707) CALCIUM (test code = 9.2 mg/dL 8.6-10.6 1490911078) eGFR Calculation mL/min/1.73m2 (Non-) (test code = 7960744054) eGFR Calculation mL/min/1.73m2 () (test code = 2428544672) JAYLON (test code = JAYLON) Association of Glomerular Filtration Rate (GFR) and Staging of Kidney Disease* + -+ + ---+| GFR (mL/min/1.73 m2) ?| With Kidney Damage ?| ?Without Kidney Damage+ -------+ ------+ ---------+| ?>90 ?| ?Stage one ?| ? Normal ?+ --+ -+ ----+| ?60-89 ?| ?Stage two ?| ? Decreased GFR ? + -+ + ---+| ?30-59 ?| ?Stage three ?| ? Stage three ? + -+ + ---+| ?15-29 ?| ?Stage four ? | ? Stage four ?+ --+ -+ ----+| ?<15 (or dialysis) ? ?| ?Stage five ? | ? Stage five ?+ --+ -+ ----+ *Each stage assumes the associated GFR level has been in effect for at least three months. ?Stages 1 to 5, with or without kidney disease, indicate chronic kidney disease. Notes: Determination of stages one and two (with eGFR >59mL/min/1.73 m2) requires estimation of kidney damage for at least three months as defined by structural or functional abnormalities of the kidney, manifested by either:Pathological abnormalities or Markers of kidney damage (including abnormalities in the composition of the blood or urine or abnormalities in imaging tests). [facility]ne[facility] (ALB, T.PRO, BILI T, BU/BC, ALT, AST, ALK PHOS)2019-08-21 03:52:00 Test Item Value Reference Range Interpretation Comments TOTAL BILI (test code = 4276005896) 0.2 mg/dL 0.1-1.1 BILI UNCON (test code = 9605712221) 0.2 mg/dL 0.1-1.1 BILI CONJ (test code = 4133897878) 0.0 mg/dL 0-0.3 T PROTEIN (test code = 1072080064) 7.0 g/dL 6.3-8.2 ALBUMIN (test code = 5931846423) 4.4 g/dL 3.5-5 ALK PHOS (test code = 2749787962) 100 U/L 34-122 ALTv (test code = 1742-6) 18 U/L 5-50 AST(SGOT) (test code = 2250231374) 29 U/L 13-40 Lab Interpretation (test code = Normal 47002-8) [facility]neEthanol [id number] 03:52:00 Test Item Value Reference Range Interpretation Comments ALCOHOL (test code = 24 mg/dL 9452395969) JAYLON (test code = Toxic Greater than or JAYLON) equal to 80 mg/dL. NOTE: Whole blood values are approximately 10% to 15% lower than serum and plasma. [facility]neCBC WITH [id number] 03:40:00 Test Item Value Reference Range Interpretation Comments WBC (test code = See_Comment H [Automated 6690-2) message] The sy stem which generated this result transmitted reference range : 4.20 - 10.70 10*3/?L. The reference range was not used to interpret this result as normal/abnormal . RBC (test code = See_Comment [Automated 789-8) message] The sy stem which generated this result transmitted reference range : 4.26 - 5.52 10*6/?L. The reference range was not used to interpret this result as normal/abnormal . HGB (test code = 13.9 g/dL 12.2-16.4 718-7) HCT (test code = 41.5 % 38.4-49.3 4544-3) MCV (test code = 90.0 fL 81.7-95.6 787-2) MCH (test code = 30.2 pg 26.1-32.7 785-6) MCHC (test code = 33.5 g/dL 31.2-35 786-4) RDW-SD (test code = 42.3 fL 38.5-51.6 22536-2) RDW-CV (test code = 12.8 % 12.1-15.4 788-0) PLT (test code = See_Comment [Automated 777-3) message] The sy stem which generated this result transmitted reference range : 150 - 328 10*3/ ?L. The reference r daja was not used to interpret this result as normal/abnormal . MPV (test code = 10.5 fL 9.8-13 61007-6) NRBC/100 WBC (test See_Comment [Automat ed code = 3869193184) message] The system which generated this result transmitted reference range : 0.0 - 10.0 /100 WBCs. The refer ence range was not u sed to interpret th is result as normal/abnormal . NRBC x10^3 (test code <0.01 See_Comment [Auto mated = 6282127778) message] The s ystem which generated this result transmitted reference range : 10*3/?L. The reference range was not used to interpret this result as normal/abnormal . GRAN MAT (NEUT) % 71.2 % (test code = 770-8) IMM GRAN % (test code 0.30 % = 9713652433) LYMPH % (test code = 21.4 % 736-9) MONO % (test code = 5.3 % 5905-5) EOS % (test code = 1.2 % 713-8) BASO % (test code = 0.6 % 706-2) GRAN MAT x10^3(ANC) 9.03 10*3/uL 1.99-6.95 H (test code = 6699978435) IMM GRAN x10^3 (test 0.04 10*3/uL 0-0.06 code = 2626988590) LYMPH x10^3 (test code 2.71 10*3/uL 1.09-3.23 = 731-0) MONO x10^3 (test code 0.67 10*3/uL 0.36-1.02 = 742-7) EOS x10^3 (test code = 0.15 10*3/uL 0.06-0.53 711-2) BASO x10^3 (test code 0.08 10*3/uL 0.01-0.09 = 704-7) Lab Interpretation Abnormal (test code = 43600-4) [facility]XR [facility]+ VW [id number] 08:29:53 No acute osseous abnormality of the right hand. RL: 460 AFC: 47349 Ordering physician: ANNA MARIE DIAZ INDICATION: Acute injury to the right and COMPARISON: None FINDINGS: 3 views of the right hand. No acute fracture or dislocation isappreciated. There is no radiopaque foreign body. [facility], Radiant Results Inft User - 03/03/2019 3:31 AM CDTOrdering physician: ANNA MARIE DIAZINDICATION: Acute injury tothe right andCOMPARISON: NoneFINDINGS: 3 views of the right hand. No acute fracture or dislocation isappreciated. There is no radiopaque foreign body.IMPRESSIONNo acute osseous abnormality of the righthand.RL: 460AFC: 47828 [facility]neValproic Acid Ngeig6096-98-05 08:10:30 Test Item Value Reference Range Interpretation Comments Valproic Acid Level (test code 94.1 ug/mL(g) 50.0-100.0 = Valproic Acid Level) Hemoglobin [id number] 09:40:02 Test Item Value Reference Range Interpretation Comments Hemoglobin A1c (test code 5.0 % 4.8-5.9 No n Diabetic = Hemoglobin A1c) 4.8-5.9%Di abetic <7.0% Valproic Acid Acyor0708-84-42 08:30:39 Test Item Value Reference Range Interpretation Comments Valproic Acid Level (test code 120.3 ug/mL(g) 50.0-100.0 H = Valproic Acid Level) RPR Ivxkcnotgka8418-50-07 06:07:29 Test Item Value Reference Range Interpretation Comments RPR Qual (test code = RPR Qual) Non-Reactive Non-Reactive Reactive Control (test code = Reactive Reactive Control) Weak Reactive Control (test Weak Reactive code = Weak Reactive Control) Non-Reactive Control (test code Non-Reactive = Non-Reactive Control) Lot # (test code = Lot #) [id number] N Expiration Dt (test code = 10. N Expiration Dt) Thyroid Stimulating Siurmti2506-29-16 02:34:05 Test Item Value Reference Range Interpretation Comments TSH (test code = TSH) 1.290 mIU/mL 0.270-4.200 Lipid Phcmx7237-44-46 02:16:21 Test Item Value Reference Range Interpretation Comments Cholesterol Total 127 mg/dL 0-200 RISK OF HE ART (test code = DISEASEPublishe d by Cholesterol Total) Citizen Of [place] Heart Association Dottie lyte Optimal Borderl ine Increased RiskC HOL <200 200-239 >240TRI G <150 150-199 >200HDL Male >60 <40HDL Fema le >60 <50LDL <100 130 -159 >160LDL Near op timal is 100-129 Triglycerides (test 78 mg/dL 9-200 [...] LDL/HDL Ratio=L DL Calc/HDL Chol Comprehensive Metabolic Gssnh0905-90-67 12:18:35 Test Item Value Reference Range Interpretation [...] A/G 2.0 ratio N Ratio) Comprehensive Metabolic Rxith5055-12-85 12:18:35 Test Item Value Reference Range Interpretation [...] the National Kidney Foundation, http://nkdep.ni h.gov Alcohol Genof7755-31-46 12:18:35 Test Item Value Reference Range Interpretation Comments Ethanol Level (test <0.00 g/dL 0.00-0.01 Intoxica lázaro 0.080 g/dL code = Ethanol or more Level) Ethanol Inst (test <0 N code = Ethanol Inst) Comprehensive Metabolic Suepd9897-48-31 12:18:35 Test Item Value Reference Range Interpretation [...] ag e have not been validated by [facility] MDRD study and should be interpreted wit caution. eGFR R esult Interpretation: eGFR > [...] ag e have not been validated by [facility] MDRD study and should be interpreted wit h caution. eGFR R esult Interpretation: eGFR > or = 60 is in the Normal RangeeGF R < 60 may mean kid bekah diseaseeGFR < 1 5 may mean kidney failure Rang es recommended by the National Kidney Foundation, http://nkdep.ni h.gov Drugs of Abuse Urine 35184-48-55 11:40:37 Test Item Value Reference Range Interpretation [...] Cannabinoid Screen Ur) Urinalysis with Culture, if fmpjsbqbw0893-44-44 11:17:21 Test Item Value Reference Range Interpretation [...] Micro Ind?) rule GL_SJM_UA_MICRO _IN D Automated Gczdmvpycwac4739-85-87 11:14:20 Test Item Value Reference Range Interpretation Comments Neutro Auto (test code = Neutro 73.7 % 36.0-70.0 H Auto) Lymph Auto (test code = Lymph Auto) 18.8 % 12.0-44.0 [place] Auto (test code = [place] Auto) 5.0 % 0.0-11.0 Eos, Auto (test code = Eos, Auto) 1.4 % 0.0-7.0 Basophil Auto (test code = Basophil 0.7 % 0.0-2.0 Auto) Neutro Absolute (test code = Neutro 6.3 x10 1.6-7.4 Absolute) Lymph Absolute (test code = Lymph 1.61 x10 .50-4.60 Absolute) [place] Absolute (test code = [place] .43 x10 .00-1.20 Absolute) Eos Absolute (test code = Eos 0.12 x10 0.00-0.74 Absolute) Baso Absolute (test code = Baso 0.06 x10 0.00-0.21 Absolute) IG [id number] 11:14:20 Test Item Value Reference Range Interpretation Comments IG (test code = IG) 0.4 % 0.0-5.0 IG Abs (test code = IG Abs) 0 x10 N Complete Blood Count with Arcernktsqbo8968-73-55 11:14:19 Test Item Value Reference Range Interpretation [...] IPF) 0 % N XR chest 1V [facility] [address] [place] [address] Patient Name: Carlos Wu Medical Record#: [id number] Address: [address] City/State/Zip: [place] [id number] Attending Dr: Anabel pascal MD Insurance: Self Pay /Age/Sex: 1990/31/M Admit/Reg Date: 02/07/[address]: MD Jayme Rubio PAC Location: [facility]/ PCP: PcpMd PALMIRA Cole Date of Service: 02/07/22 Order (s): XR chest 1V CPTCode: 45083 Report Number: [id number] Reason for Exam: tachy Location: H3 CHEST X-RAY: AP frontal projection, one view, 02/07/2022 CLINICAL HISTORY: Tachycardia COMPARISON EXAMS: None of the chest FINDINGS: Heart, lungs, and mediastinal structures are within normal limits. No pneumonia or CHF. No abnormal air collection. No acute osseous finding. IMPRESSION: No acute finding Electronically signed by: Rina Villegas MD 02/07/2022 2:01 AM CDT Dictated By: Rina Navarro MD 02/07/22 015 Signed By: Rina Navarro MD 02/07/22 0204 TD/TT: 02/07/22150 Tech: GPS02 cc: ISLMD; PCPNO* MD Jayme Rubio, PAC; Pcp-Md PALMIRA MainEKG ED Electrocardiogram [facility] [address] [place] [address] Patient Name: Carlos Wu Medical Record#: [id number] Address: [address] [place] [address] City/State/Zip: [place] [address]: Anabel pascal MD Insurance: Self Pay /Age/Sex: 1990/31/M Admit/Reg Date: 02/07/[address]: CHANTAL Christianson Location: [facility]/ PCP: PcpMd PALMIRA Cole Date of Service: 02/07/22 Order (s): EKG ED Electrocardiogram CPT Code: 84893 Report Number: [id number] Reason for Exam: Chest Pain Sinus tachycardia LAE, consider biatrial enlargement Right axis deviation Artifact in lead(s) I,II,III,aVR,aVL,aVF,V1,V2,V3,V4,V5 Summary: Abnormal ECG Dictated By: Stephani Lambert MD 02/07/22 0015 Signed By: Stephani Lambert MD 02/08/22 1447 TD/TT: 02/07/22 0015 Tech: SVCCPA cc: TIAGO; PCPNO* MD Jayme Rubio, PAC; Pcp-Etelvina,Md CHAVIS
--- NOTE | 2022-04-10 06:25 | ER ---
Nurse's Notes [facility] Name: Carlos Walker Age: 31 yrs Sex: Male : 1990 Arrival Date: 04/10/2022 Time: 06:06 Bed 14 Private MD: Diagnosis: Abuse of other non-psychoactive substances;Adverse effect of amphetamines;Schizophrenia, unspecified;Visual hallucinations;Suicidal ideations Presentation: 04/10 06:06 Chief complaint: EMS states: toned out for hallucinations. pt states he was seeing lg3 snakes all around him. denied suicidal and homicidal ideations to EMS. stated to physician that he is homeless and is needing help and will cut himself he doesn't get the help he needs. Coronavirus screen: Client denies travel out of the [place] in the last 14 days. At this time, the client does not indicate any symptoms associated with coronavirus-19. Ebola Screen: No symptoms or risks identified at this time. Risk Assessment: Do you want to hurt yourself or someone else? Patient reports desire/thoughts of hurting themselves or someone else. Provider notified. Onset of symptoms was April 10, 2022. 06:06 Method Of Arrival: EMS: [facility] lg3 06:06 Acuity: EDD 2 lg3 06:15 Initial Sepsis Screen: Does the patient meet any 2 criteria? No. Patient's initial lg3 sepsis screen is negative. Does the patient have a suspected source of infection? No. Patient's initial sepsis screen is negative. Triage Assessment: 06:15 General: Appears in no apparent distress. comfortable, Behavior is calm, cooperative. lg3 General: Appears unkempt. Pain: Denies pain. EENT: No deficits noted. No signs and/or symptoms were reported regarding the EENT system. Neuro: No deficits noted. Bell Agitation-Sedation Scale (RASS): 0 - Alert and Calm Level of Consciousness is awake, alert, obeys commands, Oriented to person, place, time, situation. Cardiovascular: No deficits noted. Denies chest pain, shortness of breath, Capillary refill < 3 seconds Clubbing of nail beds is absent JVD is absent Patient's skin is warm and dry. Respiratory: No deficits noted. Airway is patent Trachea midline Respiratory effort is even, unlabored, Respiratory pattern is regular, symmetrical, Breath sounds are clear bilaterally. GI: No deficits noted. No signs and/or symptoms were reported involving the gastrointestinal system. Abdomen is flat, non-distended, Abd is soft and non tender X 4 quads. : No deficits noted. No signs and/or symptoms were reported regarding the genitourinary system. Derm: No deficits noted. No signs and/or symptoms reported regarding the dermatologic system. Skin is intact, is healthy with good turgor, Skin is dry, Skin is normal, Skin temperature is warm. Musculoskeletal: No deficits noted. No signs and/or symptoms reported regarding the musculoskeletal system. Circulation, motion, and sensation intact. Range of motion: intact in all extremities. Historical: - Allergies: 06:15 Abilify; lg3 06:15 Promethazine; lg3 - Home Meds: 06:15 Depakote 1000 mg Oral once daily [Active]; Risperdal 2 mg Oral tab 1 tab once daily lg3 [Active]; Trazodone 200 mg Oral once daily [Active]; Zyprexa 2 mg Oral once daily [Active]; - PMHx: 06:15 Bipolar disorder; Schizophrenia; lg3 - PSHx: 06:15 None; lg3 - Immunization history:: Client reports receiving the 2nd dose of the Covid vaccine. - Social history:: Smoking status: Patient reports the use of cigarette tobacco products, Patient uses alcohol, street drugs. - Family history:: not pertinent. Screenin:19 Abuse screen: Denies threats or abuse. Denies injuries from another. Nutritional lg3 screening: No deficits noted. Tuberculosis screening: No symptoms or risk factors identified. Fall Risk None identified. Assessment: 06:20 General: see triage assessment . lg3 07:00 General: Appears in no apparent distress. comfortable, Behavior is anxious. mb8 08:05 Reassessment: Patient and/or family updated on plan of care and expected duration. Pain mb8 level reassessed. Patient denies pain at this time. 09:02 Reassessment: Patient and/or family updated on plan of care and expected duration. Pain mb8 level reassessed. Breakfast tray given to patient Patient denies pain at this time. 10:00 Reassessment: Patient and/or family updated on plan of care and expected duration. Pain mb8 level reassessed. Patient denies pain at this time. 11:00 Reassessment: Patient and/or family updated on plan of care and expected duration. Pain mb8 level reassessed. Patient denies pain at this time. 12:00 Reassessment: Patient and/or family updated on plan of care and expected duration. Pain mb8 level reassessed. Patient denies pain at this time. 13:00 Reassessment: Patient and/or family updated on plan of care and expected duration. Pain mb8 level reassessed. Patient denies pain at this time. 14:00 Reassessment: Patient and/or family updated on plan of care and expected duration. Pain mb8 level reassessed. Patient denies pain at this time. 15:00 Reassessment: Patient and/or family updated on plan of care and expected duration. Pain mb8 level reassessed. Patient denies pain at this time. 16:00 Reassessment: Patient and/or family updated on plan of care and expected duration. Pain mb8 level reassessed. Patient denies pain at this time. 17:00 Reassessment: Patient and/or family updated on plan of care and expected duration. Pain mb8 level reassessed. Patient denies pain at this time. 18:00 Reassessment: Patient and/or family updated on plan of care and expected duration. Pain mb8 level reassessed. Patient denies pain at this time. 19:05 Reassessment: pt lying quietly [facility] at bedside. bb 20:23 Reassessment: pt restless walking around in room. bb 22:01 Reassessment: pt is awake and alert, walking around room, eating from dinner tray. bb 04/11 00:00 Reassessment: pt is awake and alert redirected back to bed pillow given for comfort. bb 02:00 Reassessment: pt awake and alert given snack. bb 04:00 Reassessment: Patient is alert, oriented x 3, equal unlabored respirations, skin bb warm/dry/pink. resting quietly. 06:05 Reassessment: pt sleeping, eyes closed, resp unlabored. bb 07:00 Reassessment: Patient and/or family updated on plan of care and expected duration. Pain mb8 level reassessed. Patient sleeping, RR unlabored. 08:00 Reassessment: No changes from previously documented assessment. Patient and/or family mb8 updated on plan of care and expected duration. Pain level reassessed. Patient sleeping, even RR, no apparent distress. 09:00 Reassessment: No changes from previously documented assessment. Patient and/or family mb8 updated on plan of care and expected duration. Pain level reassessed. Patient sleeping, equal chest rise and fall, no distress noted. 10:00 Reassessment: Patient and/or family updated on plan of care and expected duration. Pain mb8 level reassessed. Patient sleeping, equal chest rise and fall, no distress noted. 10:50 Reassessment: Patient and/or family updated on plan of care and expected duration. Pain mb8 level reassessed. Patient awake and requesting to leave. Dr. Whittington notified and he will see the patient. Patient denies any SI or HI. Denies any hallucinations. 11:05 General: Dr. Whittington saw patient and will discharge. mb8 11:06 General: Patient does not want to wait for paperwork and walked out. Patient told to mb8 follow up with his PCP about his medications. . Psych: 04/10 06:21 [place] Suicide Severity Screening: In the past month, have you wished you were lg3 or wished you could go to sleep and not wake up? Patient responds "yes." "In the past month, have you actually had any thoughts of killing yourself?" Patient responds "yes." "In your lifetime, have you ever done anything, started to do anything, or prepared to do anything to end your life?" Patient responds "yes." Patient reports suicidal intent within 3 past months. Subjective: Patient's mood is irritable, hopeless, Delusions are denied, Hallucinations are auditory, visual. Objective: Patient is cooperative, irritable, using poor eye contact, restless, Speech is normal, Affect is appropriate. Interventions: Removed personal items and placed in bag. Patient placed in hospital gown. Searched person for dangerous items. Belonging list filled out. Safety Checks: Personal items have been removed. Pt has been placed in a hallway bed/chair. No visitors are present at this time. Patient uses methamphetamines Last use was 4 hours ago. Commitment: Patient will be a voluntary commitment. 07:00 [place] Suicide Severity Screening: In the past month, have you wished you were mb8 or wished you could go to sleep and not wake up? Patient responds "yes." "In the past month, have you actually had any thoughts of killing yourself?" Patient responds "yes." "In your lifetime, have you ever done anything, started to do anything, or prepared to do anything to end your life?" Patient responds "yes." Patient reports suicidal intent within 3 past months. Subjective: Patient's mood is irritable, hopeless, Delusions are denied, Hallucinations are auditory, visual, Having thoughts of suicide. Plan for suicide is Patient stated "I would use a knife to do it" when asked if he had a plan. Objective: Patient is cooperative, guarded, using poor eye contact, restless, Speech is slow, Affect is flat. 04/11 10:51 [place] Suicide Severity Screening: In the past month, have you wished you were mb8 or wished you could go to sleep and not wake up? Patient responds "No." "In the past month, have you actually had any thoughts of killing yourself?" Patient responds "no." "In your lifetime, have you ever done anything, started to do anything, or prepared to do anything to end your life?" Patient responds "yes.". Vital Signs: 04/10 06:15 BP 129 / 95; Pulse 106; Resp 18 S; Temp 97.5(O); Pulse Ox 100% on R/A; Weight 83.91 kg lg3 (R); Height 5 ft. 8 in. (172.72 cm) (R); Pain 0/10; 08:30 BP 118 / 88; Pulse 90; Resp 16; Temp 98.7(TE); Pulse Ox 99% ; Pain 0/10; mb8 13:13 BP 140 / 99; Pulse 110; Resp 20; Temp 97.6(TE); Pulse Ox 99% on R/A; Pain 0/10; mb8 04/11 01:50 BP 123 / 92; Pulse 94; Resp 16 S; Pulse Ox 96% on R/A; bb 10:50 BP 121 / 88; Pulse 99; Resp 16; Temp 98.1; Pulse Ox 99% on R/A; Pain 0/10; mb8 04/10 06:15 Body Mass Index 28.13 (83.91 kg, 172.72 cm) lg3 ED Course: 10/14 06:06 Patient arrived in ED. lg3 06:06 Kelin Nathan, RN is Primary Nurse. lg3 06:15 Triage completed. lg3 06:15 Raymon Avendano MD is Attending Physician. greyson 06:15 Arm band placed on left wrist. lg3 06:19 Patient has correct armband on for positive identification. Placed in gown. Bed in low lg3 position. Side rails up X 1. Valuables inventory done. See valuables checklist. Noise minimized. Warm blanket given. 06:35 Inserted saline lock: 20 gauge in right antecubital area, using aseptic technique. lg3 Blood collected. 06:39 SARS RAPID Sent. lg3 06:40 Acetaminophen Sent. lg3 06:40 Basic Metabolic Panel Sent. lg3 06:40 CBC with Diff Sent. lg3 06:40 ETOH Level Sent. lg3 06:40 Hepatic Function Sent. lg3 06:40 PT-INR Sent. lg3 06:40 Ptt, Activated Sent. lg3 06:40 Salicylate Sent. lg3 07:00 Safety Checks: Personal items have been removed. The door is open or patient has been mb8 placed in a hallway bed/chair. There are no family/friend visitors at this time Sitter not present at this time due to or because no sitter available, charge aware. 08:00 Safety Checks: The door is open or patient has been placed in a hallway bed/chair. mb8 There are no family/friend visitors at this time Sitter not present at this time due to or because no sitter available, charge aware. 08:58 faxed patient records to [facility] and [facility]. eb 09:00 Safety Checks: The door is open or patient has been placed in a hallway bed/chair. mb8 There are no family/friend visitors at this time Sitter not present at this time due to or because no sitter available, charge aware. 09:04 IV discontinued, intact, bleeding controlled, No redness/swelling at site. Pressure mb8 dressing applied. 09:04 No provider procedures requiring assistance completed. mb8 10:00 Safety Checks: The door is open or patient has been placed in a hallway bed/chair. mb8 There are no family/friend visitors at this time Sitter not present at this time due to or because no sitter available, charge aware. 10:43 Urine Drug Screen Sent. eb 11:00 Safety Checks: The door is open or patient has been placed in a hallway bed/chair. mb8 There are no family/friend visitors at this time Sitter present at this time. 12:00 Safety Checks: The door is open or patient has been placed in a hallway bed/chair. mb8 There are no family/friend visitors at this time Sitter not present at this time due to or because sitter pulled by house sup, no sitter at this time. 13:00 Safety Checks: The door is open or patient has been placed in a hallway bed/chair. mb8 There are no family/friend visitors at this time Sitter not present at this time due to or because no sitter available. 14:00 Safety Checks: The door is open or patient has been placed in a hallway bed/chair. mb8 There are no family/friend visitors at this time Sitter not present at this time due to or because no sitter available. 14:15 Safety Checks: Sitter present at this time. mb8 15:00 Safety Checks: The door is open or patient has been placed in a hallway bed/chair. mb8 There are no family/friend visitors at this time Sitter present at this time. 16:00 Safety Checks: The door is open or patient has been placed in a hallway bed/chair. mb8 There are no family/friend visitors at this time Sitter present at this time. 17:00 Safety Checks: The door is open or patient has been placed in a hallway bed/chair. mb8 There are no family/friend visitors at this time Sitter present at this time. 18:00 Appears restless. Appears restless. Appears restless. Safety Checks: The door is open mb8 or patient has been placed in a hallway bed/chair. There are no family/friend visitors at this time Sitter present at this time. 18:13 Called the [facility] crisis line to request a screener/ Ilene is already here with eb another client/ when she is done screener that patient she will screen this patient. 19:16 Attending Physician role handed off by Raymon Avendano MD ms3 19:16 Elmer Damico DO is Attending Physician. ms3 04/11 07:00 Safety Checks: The door is open or patient has been placed in a hallway bed/chair. mb8 There are no family/friend visitors at this time Sitter present at this time. 07:28 Attending Physician role handed off by Elmer Damico DO kdr 07:28 Oscar Whittington MD is Attending Physician. kdr 07:29 Slime from [facility] called to let us know that he is on a wait list till Wednesday. eb 08:00 Safety Checks: The door is open or patient has been placed in a hallway bed/chair. mb8 There are no family/friend visitors at this time Sitter present at this time. 09:00 Safety Checks: The door is open or patient has been placed in a hallway bed/chair. mb8 There are no family/friend visitors at this time Sitter present at this time. 10:00 No apparent distress. Appears to be sleeping. Safety Checks: The door is open or mb8 patient has been placed in a hallway bed/chair. There are no family/friend visitors at this time Sitter present at this time. Administered Medications: 04/10 06:39 Drug: NS 0.9% 1000 ml Route: IV; Rate: 1 bolus; Site: right antecubital; lg3 07:39 Follow up: IV Status: Completed infusion mb8 04/11 03:26 Drug: RisperDAL (risperiDONE) 2 mg Route: PO; bb 04:30 Follow up: Response: No adverse reaction bb Medication: 11:11 VIS not applicable for this client. mb8 Outcome: 04/10 06:24 ER care complete, transfer ordered by . greyson 04/11 11:05 Discharge ordered by . kdr 11:11 Discharged to home ambulatory. mb8 11:11 Condition: stable 11:11 Discharge instructions given to patient, Instructed on discharge instructions, follow up and referral plans. Demonstrated understanding of instructions, follow-up care. 11:12 Patient left the ED. mb8 Signatures: Raymon Avendano MD MD cha Rittger, Kevin, MD MD kdr Ballard, Brenda, RN RN Jerilyn Hernandez Lacie, RN RN lg3 Elmer Damico DO DO ms3 Raul Oliveros RN RN mb8 Corrections: (The following items were deleted from the chart) 04/10 06:28 06:06 Chief complaint: EMS states: toned out for hallucinations. pt states he was lg3 seeing snakes all around him. denied suicidal and homicidal ideations to EMS. stated to physician that he is homeless and is needing help and will cut himself he doesn't get the help he needs. lg3 09:03 07:00 Safety Checks: Personal items have been removed. The door is open or patient has mb8 been placed in a hallway bed/chair. There are no family/friend visitors at this time Sitter not present at this time due to or because no sitter available mb8 09: 08:00 Safety Checks: Sitter not present at this time due to or because no sitter mb8 available, charge aware mb8 12: 08:05 Reassessment: Patient and/or family updated on plan of care and expected mb8 duration. Pain level reassessed. Patient is alert, oriented x 3, equal unlabored respirations, skin warm/dry/pink. mb8 12: 09:02 Reassessment: Patient and/or family updated on plan of care and expected mb8 duration. Pain level reassessed. Patient is alert, oriented x 3, equal unlabored respirations, skin warm/dry/pink. Breakfast tray given to patient mb8 12: 10:30 Reassessment: Patient and/or family updated on plan of care and expected mb8 duration. Pain level reassessed. Patient is alert, oriented x 3, equal unlabored respirations, skin warm/dry/pink. mb8 13: 08:05 Reassessment: Patient and/or family updated on plan of care and expected mb8 duration. Pain level reassessed. mb8 13: 09:02 Reassessment: Patient and/or family updated on plan of care and expected mb8 duration. Pain level reassessed. Breakfast tray given to patient mb8 13: 10:00 Reassessment: Patient and/or family updated on plan of care and expected mb8 duration. Pain level reassessed. mb8 : 11:00 Reassessment: Patient and/or family updated on plan of care and expected mb8 duration. Pain level reassessed. mb8 13: 12:00 Reassessment: Patient and/or family updated on plan of care and expected mb8 duration. Pain level reassessed. mb8 14:24 13:09 Safety Checks: The door is open or patient has been placed in a hallway 8 bed/chair. There are no family/friend visitors at this time Sitter not present at this time due to or because no sitter available [facility] 18:42 17:00 Safety Checks: The door is open or patient has been placed in a hallway [facility] bed/chair. There are no family/friend visitors at this time Sitter present at this time. [facility]
--- NOTE | 2022-04-10 06:25 | EDPHYS ---
Physician Documentation [facility] Name: Carlos Walker Age: 31 yrs Sex: Male : 1990 Arrival Date: 04/10/2022 Time: 06:06 Bed 14 Private MD: ED Physician Oscar Whittington HPI: 04/10 06:17 This 31 yrs old Male presents to ER via EMS with complaints of meth abuse and greyson suicidal. 06:17 The patient presents to the emergency department with a history of substance abuse, greyson suicide ideation, and the patient has a plan, to cut oneself and bleed. Onset: The symptoms/episode began/occurred 2 day(s) ago. Past psychiatric history: Prior diagnosis: bipolar disorder, schizophrenia, Psychiatric medications include: trazadone. Associated signs and symptoms: The patient has no apparent associated signs or symptoms. Severity of symptoms: At their worst the symptoms were moderate in the emergency department the symptoms are unchanged. The patient has experienced similar episodes in the past, multiple times. Historical: - Allergies: 06:15 Abilify; lg3 06:15 Promethazine; lg3 - Home Meds: 06:15 Depakote 1000 mg Oral once daily [Active]; Risperdal 2 mg Oral tab 1 tab once daily lg3 [Active]; Trazodone 200 mg Oral once daily [Active]; Zyprexa 2 mg Oral once daily [Active]; - PMHx: 06:15 Bipolar disorder; Schizophrenia; lg3 - PSHx: 06:15 None; lg3 - Immunization history:: Client reports receiving the 2nd dose of the Covid vaccine. - Social history:: Smoking status: Patient reports the use of cigarette tobacco products, Patient uses alcohol, street drugs. - Family history:: not pertinent. ROS: 06:17 Constitutional: Negative for fever, chills, and weight loss, Eyes: Negative for injury, greyson pain, redness, and discharge, ENT: Negative for injury, pain, and discharge, Neck: Negative for injury, pain, and swelling, Respiratory: Negative for shortness of breath, cough, wheezing, and pleuritic chest pain, Abdomen/GI: Negative for abdominal pain, nausea, vomiting, diarrhea, and constipation, Back: Negative for injury and pain, : Negative for injury, bleeding, discharge, and swelling, MS/Extremity: Negative for injury and deformity, Skin: Negative for injury, rash, and discoloration, Neuro: Negative for headache, weakness, numbness, tingling, and seizure, Psych: Negative for depression, anxiety, suicide ideation, homicidal ideation, and hallucinations, Allergy/Immunology: Negative for hives, rash, and allergies, Endocrine: Negative for neck swelling, polydipsia, polyuria, polyphagia, and marked weight changes, Hematologic/Lymphatic: Negative for swollen nodes, abnormal bleeding, and unusual bruising. 06:17 Cardiovascular: Positive for palpitations. 06:17 Psych: Positive for visual hallucinations, suicidal ideation. Exam: 06:17 Constitutional: This is a well developed, well nourished patient who is awake, alert, greyson and in no acute distress. Head/Face: Normocephalic, atraumatic. Eyes: Pupils equal round and reactive to light, extra-ocular motions intact. Lids and lashes normal. Conjunctiva and sclera are non-icteric and not injected. Cornea within normal limits. Periorbital areas with no swelling, redness, or edema. ENT: Nares patent. No nasal discharge, no septal abnormalities noted. Tympanic membranes are normal and external auditory canals are clear. Oropharynx with no redness, swelling, or masses, exudates, or evidence of obstruction, uvula midline. Mucous membranes moist. Neck: Trachea midline, no thyromegaly or masses palpated, and no cervical lymphadenopathy. Supple, full range of motion without nuchal rigidity, or vertebral point tenderness. No Meningismus. Chest/axilla: Normal chest wall appearance and motion. Nontender with no deformity. No lesions are appreciated. Cardiovascular: Regular rate and rhythm with a normal S1 and S2. No gallops, murmurs, or rubs. Normal PMI, no JVD. No pulse deficits. Respiratory: Lungs have equal breath sounds bilaterally, clear to auscultation and percussion. No rales, rhonchi or wheezes noted. No increased work of breathing, no retractions or nasal flaring. Abdomen/GI: Soft, non-tender, with normal bowel sounds. No distension or tympany. No guarding or rebound. No evidence of tenderness throughout. Back: No spinal tenderness. No costovertebral tenderness. Full range of motion. Male : Normal genitalia with no discharge or lesions. Skin: Warm, dry with normal turgor. Normal color with no rashes, no lesions, and no evidence of cellulitis. MS/ Extremity: Pulses equal, no cyanosis. Neurovascular intact. Full, normal range of motion. Neuro: Awake and alert, GCS 15, oriented to person, place, time, and situation. Cranial nerves II-XII grossly intact. Motor strength 5/5 in all extremities. Sensory grossly intact. Cerebellar exam normal. Normal gait. 06:17 Psych: Behavior/mood is suicidal, depressed. 06:44 ECG was reviewed by the Attending Physician. greyson Vital Signs: 06:15 BP 129 / 95; Pulse 106; Resp 18 S; Temp 97.5(O); Pulse Ox 100% on R/A; Weight 83.91 kg lg3 (R); Height 5 ft. 8 in. (172.72 cm) (R); Pain 0/10; 08:30 BP 118 / 88; Pulse 90; Resp 16; Temp 98.7(TE); Pulse Ox 99% ; Pain 0/10; mb8 13:13 BP 140 / 99; Pulse 110; Resp 20; Temp 97.6(TE); Pulse Ox 99% on R/A; Pain 0/10; mb8 15 01:50 BP 123 / 92; Pulse 94; Resp 16 S; Pulse Ox 96% on R/A; bb 10:50 BP 121 / 88; Pulse 99; Resp 16; Temp 98.1; Pulse Ox 99% on R/A; Pain 0/10; mb8 04/10 06:15 Body Mass Index 28.13 (83.91 kg, 172.72 cm) lg3 MDM: 04/10 06:15 Patient medically screened. greyson 06:21 Differential diagnosis: drug withdrawal. acute psychotic break, depression, psychosis greyson secondary to non-compliance. Data reviewed: vital signs, nurses notes, lab test result(s), EKG. Data interpreted: cardiac monitor technician: rate is 106 beats/min, rhythm is regular, Pulse oximetry: on room air is 100 %. Test interpretation: by ED physician or midlevel provider:. Counseling: I had a detailed discussion with the patient and/or guardian regarding: the historical points, exam findings, and any diagnostic results supporting the discharge/admit diagnosis, lab results, radiology results, the need to transfer to another facility, for higher level of care, [facility] does not immediately have the required specialist. 19:16 ED course: [facility] has visited the patient and they recommend inpatient admission.. ms3 04/10 06:16 Order name: Acetaminophen [facility] 04/10 06:16 Order name: Basic Metabolic Panel [facility] 04/10 06:16 Order name: CBC with Diff [facility] 04/10 06:16 Order name: ETOH Level greyson 04/10 06:16 Order name: Hepatic Function [facility] 04/10 06:16 Order name: PT-INR [facility] 04/10 06:16 Order name: Ptt, Activated [facility] 04/10 06:16 Order name: Salicylate [facility] 04/10 06:36 Order name: SARS RAPID lg 04/10 07:01 Order name: CBC with Automated Diff; Complete Time: 06:43 EDMS 04/10 07:06 Order name: Protime (+INR); Complete Time: 06:43 EDMS 04/10 07:06 Order name: PTT, Activated Partial Thromb; Complete Time: 06:43 EDMS 04/10 07:13 Order name: Salicylates Level; Complete Time: 06:43 EDMS 04/10 06:16 Order name: EKG; Complete Time: 06:17 [facility] 04/10 06:16 Order name: EKG - Nurse/Tech; Complete Time: 06:28 [facility] 04/10 06:16 Order name: IV Saline Lock; Complete Time: 06:40 [facility] 04/10 06:16 Order name: Labs collected and sent; Complete Time: 06:40 [facility] 04/10 06:32 Order name: Diet Finger Food; Complete Time: 06:32 [facility] 04/10 07:13 Order name: SARS-COV-2 Antigen Rapid; Complete Time: 06:43 EDMS 04/10 07:19 Order name: Alcohol Serum/Plasma; Complete Time: 06:43 EDMS 04/10 07:37 Order name: Basic Metabolic Panel; Complete Time: 06:43 EDMS 04/10 07:37 Order name: Liver (Hepatic) Function; Complete Time: 06:43 EDMS 04/10 07:37 Order name: Acetaminophen Level; Complete Time: 06:43 EDMS 04/10 08:24 Order name: Urine Dipstick-Ancillary; Complete Time: 06:43 EDMS 04/10 09:34 Order name: Urine Drug Screen 04/10 09:49 Order name: Urine Drug Screen; Complete Time: 06:43 EDHI 04/10 10:40 Order name: Urine Drug Screen; Complete Time: 06:43 EDHI 04/10 06:16 Order name: Suicide Precautions; Complete Time: 06:23 [facility] 04/10 06:16 Order name: Suicide Screening (Eads); Complete Time: 06:23 greyson 04/10 06:16 Order name: Urine Dipstick-Ancillary (obtain specimen); Complete Time: 08:25 [facility] EC:44 Rate is 110 beats/min. Rhythm is regular. QRS Bee is Normal. [place] interval is normal. greyson QRS interval is normal. QT interval is normal. No Q waves. T waves are Normal. No ST changes noted. Clinical impression: Sinus tachycardia. Interpreted by me. Reviewed by me. Administered Medications: 06:39 Drug: NS 0.9% 1000 ml Route: IV; Rate: 1 bolus; Site: right antecubital; lg3 07:39 Follow up: IV Status: Completed infusion mb8 04/11 03:26 Drug: RisperDAL (risperiDONE) 2 mg Route: PO; bb 04:30 Follow up: Response: No adverse reaction bb Disposition Summary: 04/11/22 11:05 Discharge Ordered Location: Home kdr Problem: an acute exacerbation(04/11/22 11:05) kdr Symptoms: have improved(04/11/22 11:05) kdr Condition: Stable(04/11/22 11:05) kdr Diagnosis - Abuse of other non-psychoactive substances(04/11/22 11:05) kdr - Adverse effect of amphetamines(04/11/22 11:05) kdr - Schizophrenia, unspecified(04/11/22 11:05) kdr - Visual hallucinations(04/11/22 11:05) kdr - Suicidal ideations(04/11/22 11:05) kdr Followup: kdr - With: Private Physician - When: 2 - 3 days - Reason: If symptoms return, Further diagnostic work-up, Recheck today's complaints, Continuance of care, Re-evaluation by your physician Discharge Instructions: - Discharge Summary Sheet kdr - Finding Treatment for Addiction kdr - Substance Use Disorder kdr - Schizophrenia kdr - Managing Schizophrenia kdr - Illegal Drug Use Information, Adult kdr Forms: - Medication Reconciliation Form kdr - Thank You Letter kdr Prescriptions: - Risperdal 2 mg Oral tablet - take 1 tablet by ORAL route once daily; 10 tablet; Refills: 0, Product kdr Selection Permitted Signatures: Dispatcher [employer] EDRaymon Connolly MD MD cha Rittger, Kevin, MD MD kdr Ballard, Brenda, RN RN bb Kelin Nathan RN RN lg3 Elmer Damico DO DO ms3 Raul Oliveros RN mb8 Corrections: (The following items were deleted from the chart) 04/10 07:40 06:17 URINE DRUG SCREEN+[id number].[email or web address].BRZ ordered. EDMS EDMS 04/11 11:02 04/10 06:24 psych greyson kdr 04/11 11:02 04/10 06:24 Psych Facility greyson kdr 04/11 11:04/10 06:24 Higher level of care greyson kdr 04/11 11:02 04/10 06:24 Stable greyson kdr 04/11 11:02 04/10 06:24 new greyson kdr 04/11 11:02 04/10 06:24 have improved greyson kdr 04/11 11:02 04/10 06:24 Abuse of other non-psychoactive substances greyson kdr 04/11 11:02 04/10 06:24 Adverse effect of amphetamines greyson kdr 04/11 11:02 04/10 06:24 Schizophrenia, unspecified greyson kdr 04/11 11:02 04/10 06:24 Suicidal ideations greyson kdr 04/11 11:02 04/10 06:24 Visual hallucinations greyson kdr
[2022-04-10] MEDS ORDERED: NA CHLORIDE 0.9% 1,000 ML ONE (06:37)
[2022-04-10 06:58] LABS: Absolute Lymphocytes (CBC) 1.7 K/uL (0.7-4.9); Lymphocytes % 18.1 % (15.3-44.8); MCV 87.3 fL (80-100); MPV 9.2 fL (7.6-11.3); RBC Red Blood Cell Count 5.15 M/uL (4.33-5.43)
[2022-04-10 07:06] LABS: Protime INR 0.97
[2022-04-10 07:13] LABS: SARS-CoV-2 Antigen Rapid Res Negative (Negative)
[2022-04-10 07:37] LABS: ALT/SGPT 39 U/L (12-78); AST/SGOT 32 U/L (15-37); Albumin 4.8 g/dL (3.4-5.0); Alkaline Phosphatase 90 U/L (45-117); BUN Blood Urea Nitrogen 22 mg/dL (7-18); Bicarbonate 28 mmol/L (21-32); Bilirubin Direct 0.1 mg/dL (0-0.2); Bilirubin Total 0.6 mg/dL (0.2-1.0); Glomerular Filtration Rate 68 ml/min (=/>90); Glucose Level 112 mg/dL (74-106); Potassium 4.1 mmol/L (3.5-5.1); Sodium Level 136 mmol/L (136-145)
[2022-04-10 08:24] LABS: Urine Blood Negative (Negative); Urine Glucose Negative (Negative); Urine Protein 2+ (Negative); Urine Specific Gravity >=1.030 (1.005-1.030); Urine pH 5.5 (5.0-7.0)
[2022-04-10 09:48] LABS: Barbiturates NEGATIVE (NEGATIVE); Benzodiazepines NEGATIVE (NEGATIVE); Cocaine POSITIVE (NEGATIVE); METHAMPHETAM POSITIVE (NEGATIVE); Methadone NEGATIVE (NEGATIVE); Opiates NEGATIVE (NEGATIVE); Phencyclidine NEGATIVE (NEGATIVE); THC Cannibis NEGATIVE (NEGATIVE)
[2022-04-10 10:40] LABS: Barbiturates NEGATIVE (NEGATIVE); Benzodiazepines NEGATIVE (NEGATIVE); Cocaine POSITIVE (NEGATIVE); METHAMPHETAM POSITIVE (NEGATIVE); Methadone NEGATIVE (NEGATIVE); Opiates NEGATIVE (NEGATIVE); Phencyclidine NEGATIVE (NEGATIVE); THC Cannibis NEGATIVE (NEGATIVE)
--- NOTE | 2022-04-10 11:39 | EKG ---
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
[2022-04-11] MEDS ORDERED: RISPERIDONE 1 MG TABLET ONE (03:20)
[2022-04-11 11:41] VITALS: BP 121/88; TEMP 98.1; O2SAT 99
== END 2022-04-11 11:12 | disposition home or self-care (01) ==
LOC: ER 06:05
DX: R45.851 Suicidal ideations (principal); F55.8 Abuse of other non-psychoactive substances; T43.625A Adverse effect of amphetamines, initial encounter; Y92.9 Unspecified place or not applicable; F20.9 Schizophrenia, unspecified; Z88.8 Allergy status to other drugs, medicaments and biological substances; Z20.822 Contact with and (suspected) exposure to COVID-19
CPT/HCPCS: 36415; 80048; 80076; 80307; 80320; 80329; 81003; 85025; 85610; 85730; 87811; 93005; 96360; 99285; J7030

== ENCOUNTER 2022-04-11 19:21 | Emergency (ER) | payer SELFPAY ==
--- OUTSIDE RECORDS SUMMARY | 2022-04-11 19:32 | XMS REPORT | Continuity of Care Document ---
:1990 Author Organization [facility] t Address [address] [place] [address] Care Team Providers Name Role Phone Pcp-None [...] Clinician Manuelito CHAVIS, Holly Chao Attending Clinician [phone] Rc CHAVIS, Kiko Shannon Attending Clinician [...] Clinician Unavailable Holly Billings MD Admitting Clinician [phone] JAMES MELISSA Admitting Clinician Unavailable James [...] nivers ysis ysis 7-28 ity of 00:00: [address] Suicidal Suicidal Disease Active Unive rs ideations ideations 7-20 ity of 00:00: [address] Problem Problem [facility] Schizophre Schizophre Disease Active [facility] Pol[facility] Polysubsta Disease Active [facility] n[facility] Bipolar Bipolar Disease Active [facility] Allergies, Adverse Reactions, Alerts Allergy Allergy Status Severity Reaction(s) Onset Inactive Treating Comm ents Source Name Type Date Date Clinician prometha DA Active U Unknown [facility] zine 8-17 00:00: 00 aripipra DA Active U Unknown [facility] zole 8-17 00:00: 00 prometha DA [...] 00 aripipra DA Active U Unknown 0 [facility] zole 6-14 00:00: 00 prometha DA Active [place] 0 [facility] z[facility]-05 [place] 00:00: d [address] [place] [address] aripipra DA Active SV 2020-0 [facility] zole 3-05 [place] 00:00: d 00 [facility] prometha DA Active MO TREMORS 2020-0 [facility] zine 3-05 [place] 00:00: d 00 [facility] aripipra DA Active SV DYSTONIC 2020-0 [facility] zole REACTION 3-05 [place] 00:00: d 00 [facility] ARIPIPRA DRUG Active Unknown-Cmnt 20190 Un tiffany ZOLE INGREDI 5-06 ity of 00:00: [place] 00 [facility] PHENERGA DRUG Active Unknown-Cmnt 2019-0 Un tiffany N PLAIN 5-06 ity of 00:00: [place] 00 [facility] Aripipra Propensi Active Unknown - 2019-0 Uni vers zole ty to See comments - ity of adverse 00:00: [place] reaction 00 [facility] Phenerga Propensi Active Unknown - 2019-0 Uni vers n Plain ty to See comments - ity of adverse 00:00: [place] reaction 00 [facility] prometha Drug Active [facility] Abilify Drug Active [facility] prometha Drug Active [facility] Abilify Drug Active [facility] prometha Drug Active [facility] prometha Drug Active [facility] Abilify Drug Active [facility] Abilify Drug Active [facility] prometha Drug Active [facility] Abilify Drug Active [facility] prometha Drug Active [facility] Abilify Drug Active [facility] Social History Social Habit Start Date Stop Date Quantity Comments Source History of Passive smoker University of tobacco use [facility] [place] [facility] Exposure to 2022-01-25 2022-02-04 Not sure University of SARS-CoV-2 00:00:00 14:20:00 [facility] [place] (event) [place] Alcohol intake 2022-02-04 2022-02-04 Current drinker Unive rsity of 00:00:00 00:00:00 of alcohol [facility] [place] (finding) [place] Tobacco use and 2022-01-22 2022-01-22 Smokeless tobacco Un iversity of exposure 00:00:00 00:00:00 non-user [facility] [place] [facility] Sex Assigned At [birth year] Female [facility] 00:00:00 00:00:00 Smoking Status Start Date Stop Date Source Unknown if ever smoked [facility] Smokes tobacco daily 2022-01-22 00:00:00 Univers ity of [facility] Medications Ordered Filled Start Stop Current Ordering [...] On 01/26/22 at 2215, TOMAS dicyclomine Yes [id number] 20mg Take 1 Univers 20 mg 8-01 tablet by ity of tablet 00:00: mouth 4 [place] 00 (four) Medical times Branch daily. dicyclomine 2021-0 Yes [id number] 20mg Take 1 Univers 20 mg 8-01 tablet by ity of tablet 00:00: mouth 4 [place] 00 (four) Medical times Branch daily. dicyclomine 2021-0 Yes [id number] 20mg Take 1 Univers 20 mg 8-01 tablet by ity of tablet 00:00: mouth 4 [place] 00 (four) Medical times Branch daily. dicyclomine 2021-0 2022- No [id number] 20mg Take 1 Univers 20 mg 8-01 08-01 tablet by ity of tablet 00:00: 00:00 mouth 4 [place] 00 :00 (four) Medical times Branch daily. traZODone Yes 50mg 50 mg, Univer s (DESYREL) 01-25 Oral, QHS, ity of tablet 50 02:00: [place] 00 (after Medical last Branch modificati on) on [facility] 01/24/22 at 2100, Until Discontinu ed, Routine [...] ity of 2 mg tablet 18:04: at [place] [address] bedtime. Medical Branch traZODone 0 Yes 50mg Take 50 mg Un tiffany 50 mg 7-29 by mouth ity of tablet 18:04: at [place] [address] bedtime. Medical Branch risperiDONE 2021-0 Yes 2mg Take 2 mg U nivers (RISPERDAL) 7-29 by mouth ity of 2 mg tablet 18:04: at [place] [address] bedtime. Medical Branch traZODone 2021-0 Yes 50mg Take 50 mg Un tiffany 50 mg 7-29 by mouth ity of tablet 18:04: at [place] [address] bedtime. Medical Branch risperiDONE 0 Yes 2mg Take 2 mg U nivers (RISPERDAL) 7-29 by mouth ity of 2 mg tablet 18:04: at [place] [address] bedtime. Medical Branch traZODone 2021-0 Yes 50mg Take 50 mg Un tiffany 50 mg 7-29 by mouth ity of tablet 18:04: at [place] [address] bedtime. Medical Branch risperiDONE 2021-0 Yes 2mg Take 2 mg U nivers (RISPERDAL) 7-29 by mouth ity of 2 mg tablet 18:04: at [place] [address] bedtime. Medical Branch traZODone 0 Yes 50mg Take 50 mg Un tiffany 50 mg 7-29 by mouth ity of tablet 18:04: at [place] [address] bedtime. Medical Branch lactated 0 Yes 1000mL [...] en - Oral, ity of (TYLENOL) 00:32: [id number], [place] tablet 650 25 Starting Medic al mg [...] ity of 2 mg tablet 17:15: at [place] [address] bedtime. Medical Branch traZODone Yes 50mg Take 50 mg Un tiffany 50 mg 01-16 by mouth ity of tablet 17:15: at [place] [address] bedtime. Medical Branch risperiDONE Yes 2mg Take 2 mg U nivers (RISPERDAL) 01-16 by mouth ity of 2 mg tablet 17:15: at [place] [address] bedtime. Medical Branch traZODone Yes 50mg Take 50 mg Un tiffany 50 mg 22 by mouth ity of tablet 17:15: at [place] [address] bedtime. Medical Branch lidocaine 2021- Yes 1{patch [...] dose [place] mg 00 [place] Wed [facility] 01/14/22 at Branch 2100, Until Discontinu ed, Routine risperiDONE 0 Yes 2mg 2 mg, Unive rs (RISPERDAL) 01-15 Oral, QHS, it y of tablet 2 mg 02:00: First dose [place] 00 on Wed [facility] 01/14/22 at Branch 2100, Until Discontinu ed, Routine benztropine 0 Yes 1mg 1 mg, Unive rs (COGENTIN) 01-15 Oral, BID, ity of tablet 1 mg 01:00: First dose [place] 00 on Wed [facility] 01/14/22 at Branch 2000, Until Discontinu ed, [...] mg 00 First dose Medical on Wed [place] 01/14/22 at 1700, Until Discontinu ed, Routine acetaminoph 2021-0 Yes 650mg 650 mg, Un tiffany en -20 Oral, ity of (TYLENOL) 16:06: Q6HPRN, [place] tablet 650 11 Starting Medic al mg [...] 6-12 Oral, ity of (ROBAXIN) 03:07: QIDPRN, [place] tablet 500 17 Starting Medic al mg on Wed Branch 12/06/21 at 2207, Until Discontinu ed, Routine, Muscle Spasms OLANZapine 2021-0 Yes 5mg 5 mg, Univer s ZYDIS 6-12 Oral, BID, ity of (ZyPREXA 01:00: First dose [place] as ZYDIS) 00 on [facility] Medical disintegrat 6/11/22 at Br anch ing [...] MARIE DIAZ oxymetazoli 2019- No 1{spray 1 [place], Univers ne 03-03 } Nasal, ity of (OXYMETAZOL 09:15: 08:42 ONCE, 1 [place] INE HCL) 00 :00 dose, Fri Medica l 0.05 % 03/03/19 at Branch nasal spray 0415, TOMAS 1 [place] oxymetazoli 2019- No 2{spray 2 [place], Univers ne 03-03 } Nasal, ity of (OXYMETAZOL 09:15: 08:03 ONCE, 1 [place] IN[place] HCL) 00 :00 dose, Fri Medica l 0.05 % 03/03/19 at Branch nasal spray 0415, 2 [place] Routine tetanus-dip 2019-0 2019- No .5mL 0.5 mL, Un tiffany htheria 03-03 09-06 Intramuscu ity o f toxoids 09:00: 08:04 lar, ONCE, [place] as (TDVAX) 2-2 00 :00 1 dose, Medic al Lf unit/0.5 03/03/19 Br anch mL at 0400, injection Routine 0.5 mL divalproex Yes [id number] 1000mg Take 2 Univers (DEPAKOTE) 7-04 tablets by ity of 500 mg EC 00:00: mouth [place] tablet 00 every 12 Medical (twelve) Branch hours. divalproex 2018- Yes [id number] 1000mg Take 2 Univers (DEPAKOTE) 7-04 tablets by ity of 500 mg EC 00:00: mouth [place] tablet 00 every 12 Medical (twelve) Branch hours. divalproex Yes [id number] 1000mg Take 2 Univers (DEPAKOTE) 7-04 tablets by ity of 500 mg EC 00:00: mouth [place] tablet 00 every 12 Medical (twelve) Branch hours. divalproex Yes [id number] 1000mg Take 2 Univers (DEPAKOTE) 7-04 tablets by ity of 500 mg EC 00:00: mouth [place] tablet 00 every 12 Medical (twelve) Branch hours. divalproex 2018- Yes [id number] 1000mg Take 2 Univers (DEPAKOTE) 7-04 tablets by ity of 500 mg EC 00:00: mouth [place] tablet 00 every 12 Medical (twelve) Branch hours. divalproex 2019-0 Yes [id number] 1000mg Take 2 Univers (DEPAKOTE) 7-04 tablets by ity of 500 mg EC 00:00: mouth [place] tablet 00 every 12 Medical (twelve) Branch hours. divalproex 2018- Yes [id number] 1000mg Take 2 Univers (DEPAKOTE) 7-04 tablets by ity of 500 mg EC 00:00: mouth [place] tablet 00 every 12 Medical (twelve) Branch hours. divalproex 2019- Yes [id number] 1000mg Take 2 Univers (DEPAKOTE) 7-04 tablets by ity of 500 mg EC 00:00: mouth [place] tablet 00 every 12 Medical (twelve) Branch hours. divalproex Yes [id number] 1000mg Take 2 Univers (DEPAKOTE) 7-04 tablets by ity of 500 mg EC 00:00: mouth [place] tablet 00 every 12 Medical (twelve) Branch hours. divalproex Yes [id number] 1000mg Take 2 Univers (DEPAKOTE) 7-04 tablets by ity of 500 mg EC 00:00: mouth [place] tablet 00 every 12 Medical (twelve) Branch hours. divalproex 2022- No [id number] 1000mg Take 2 Univers (DEPAKOTE) 7-04 07-22 tablets by it y of 500 mg EC 00:00: 00:00 mouth [place] tablet 00 :00 every 12 Medical (twelve) Branch hours. acetaminoph Yes [id number] 1{tbl} Take 1 Univers en-codeine 6-22 tablet by ity of 300-30 mg 00:00: mouth [place] tablet 00 every 4 Medical (four) Branch hours as needed for Pain (scale 4-6) or Pain (scale 7-10). oxymetazoli Yes [id number] 1{spray Use 1 Univers ne (AFRIN, 6-22 } [place] in ity o f OXYMETAZOLI 00:00: each [place] NE,) 0.05 % 00 nostril as Me dical nasal spray needed Branch (epistaxis ). acetaminoph Yes [id number] 1{tbl} Take 1 Univers en-codeine 6-22 tablet by ity of 300-30 mg 00:00: mouth [place] tablet 00 every 4 Medical (four) Branch hours as needed for Pain (scale 4-6) or Pain (scale 7-10). oxymetazoli Yes [id number] 1{spray Use 1 Univers ne (AFRIN, 6-22 } [place] in ity o f OXYMETAZOLI 00:00: each [place] NE,) 0.05 % 00 nostril as Me dical nasal spray needed Branch (epistaxis ). acetaminoph Yes [id number] 1{tbl} Take 1 Univers en-codeine 6-22 tablet by ity of 300-30 mg 00:00: mouth [place] tablet 00 every 4 Medical (four) Branch hours as needed for Pain (scale 4-6) or Pain (scale 7-10). oxymetazoli Yes [id number] 1{spray Use 1 Univers ne (AFRIN, 6-22 } [place] in ity o f OXYMETAZOLI 00:00: each [place],) 0.05 % 00 nostril as Me dical nasal spray needed Branch (epistaxis ). acetaminoph Yes [id number] 1{tbl} Take 1 Univers en-codeine 6-22 tablet by ity of 300-30 mg 00:00: mouth [place] tablet 00 every 4 Medical (four) Branch hours as needed for Pain (scale 4-6) or Pain (scale 7-10). oxymetazoli Yes [id number] 1{spray Use 1 Univers ne (AFRIN, 6-22 } [place] in ity o f OXYMETAZOLI 00:00: each [place],) 0.05 % 00 nostril as Me dical nasal spray needed Branch (epistaxis ). acetaminoph 2020- No [id number] 1{tbl} Take 1 Univers en-codeine 6-22 02-23 tablet by ity of 300-30 mg 00:00: 00:00 mouth [place] tablet 00 :00 every 4 Medical (four) Branch hours as needed for Pain (scale 4-6) or Pain (scale 7-10). oxymetazoli 2020- No [id number] 1{spray Use 1 Univers ne (AFRIN, 6-22 02-23 } [place] in ity of OXYMETAZOLI 00:00: 00:00 each [place],) 0.05 % 00 :00 nostril as Me dical nasal spray needed Branch (epistaxis ). Immunizations Ordered Filled Immunization Date Status Comments [facility] e Immunization Name Name Td 2019-03-03 Completed University of 00:00:00 [facility] [place] [facility] Td 2019-03-03 Completed University of 00:00:00 [facility] [place] [facility] Td 2019-03-03 Completed University of 00:00:00 [facility] [place] [facility] Td 2019-03-03 Completed University of 00:00:00 [facility] [place] [facility] Td 2019-03-03 Completed University of 00:00:00 [facility] [place] [facility] Td 2019-03-03 Completed University of 00:00:00 [place] [facility] Td 2019-03-03 Completed University of 00:00:00 [place] [facility] Td 2019-03-03 Completed University of 00:00:00 [place] [facility] Td 2019-03-03 Completed University of 00:00:00 [place] [facility] Td 2019-03-03 Completed University of 00:00:00 [place] [facility] Td 2019-03-03 Completed University of 00:00:00 [place] [facility] Td 2019-03-03 Completed University of 00:00:00 [place] [facility] Td 2019-03-03 Completed University of 00:00:00 [place] [facility] Td 2019-03-03 Completed University of 00:00:00 [place] [facility] Td 2019-03-03 Completed University of 00:00:00 [facility] [place] [facility] Vital Signs Vital Name Observation Time Observation Value Comments Source Systolic blood 2022-02-04 19:21:00 120 mm[Hg] Univer sity of pressure [facility] [place] [facility] Diastolic blood 2022-02-04 19:21:00 82 mm[Hg] Unive rsity of [facility] Heart rate 2022-02-04 19:21:00 103 /min [facility] Body temperature 2022-02-04 19:21:00 36.89 Lela [facility] Respiratory rate 2022-02-04 19:21:00 25 /min [facility] Body weight 2022-02-04 19:21:00 83.915 kg [facility] BMI 2022-02-04 19:21:00 28.13 kg/m2 [facility] Oxygen saturation in 2022-02-04 19:21:00 96 /min [facility] Arterial blood by [facility] Pulse oximetry Branch Systolic blood 2022-01-31 14:27:00 135 mm[Hg] Univer sity of pressure [facility] [place] [facility] Diastolic blood 2022-01-31 14:27:00 91 mm[Hg] Unive rsity of pressure [facility] [place] [facility] Heart rate 2022-01-31 14:27:00 99 /min Universi ty [facility] [place] [facility] Respiratory rate 2022-01-31 14:27:00 18 /min [facility] Oxygen saturation in 2022-01-31 14:27:00 96 /min University of Arterial blood by [facility] arturo Pulse oximetry Branch Body temperature 2022-01-31 00:14:00 37.33 Lela Univ ersity of [place] [facility] Body weight 2022-01-31 00:14:00 83.915 kg Universi ty of [place] [facility] BMI 2022-01-31 00:14:00 28.13 kg/m2 Universi ty of [place] [facility] Systolic blood 2022-01-27 04:14:00 110 mm[Hg] Univer sity of pressure [place] [facility] Diastolic blood 2022-01-27 04:14:00 70 mm[Hg] Unive rsity of pressure [place] [facility] Heart rate 2022-01-27 04:14:00 56 /min Universi ty of [place] [facility] Respiratory rate 2022-01-27 04:14:00 18 /min Univ ersity of [place] [facility] Oxygen saturation in 2022-01-27 04:14:00 98 /min University of Arterial blood by [facility] Pulse oximetry Branch Body temperature 2022-01-27 00:11:00 36.83 Lela Univ ersity of [place] [facility] Systolic blood 2022-01-23 16:37:00 124 mm[Hg] Univer sity of pressure [place] [facility] Diastolic blood 2022-01-23 16:37:00 85 mm[Hg] Unive rsity of pressure [place] [facility] Heart rate 2022-01-23 16:37:00 85 /min Universi ty of [place] [facility] Body temperature 2022-01-23 16:37:00 36.78 Lela Univ ersity of [place] [facility] Respiratory rate 2022-01-23 16:37:00 18 /min Univ ersity of [place] [facility] Oxygen saturation in 2022-01-23 16:37:00 94 /min University of Arterial blood by [facility] Pulse oximetry Branch Body height 2022-01-23 01:52:00 172.7 cm Universi ty of [place] [facility] Body weight 2022-01-23 01:52:00 75.978 kg Universi ty of [place] [facility] BMI 2022-01-23 01:52:00 25.47 kg/m2 Universi ty of [place] [facility] Systolic blood 2022-01-16 15:59:00 125 mm[Hg] Univer sity of pressure [place] [facility] Diastolic blood 2022-01-16 15:59:00 73 mm[Hg] Unive rsity of pressure [place] [facility] Heart rate 2022-01-16 15:59:00 66 /min Universi ty of [place] [facility] Body temperature 2022-01-16 15:59:00 36.33 Lela Univ ersity of [place] [facility] Respiratory rate 2022-01-16 15:59:00 17 /min Univ ersity of [place] [facility] Oxygen saturation in 2022-01-16 15:59:00 97 /min University of Arterial blood by [place] [employer] arturo Pulse oximetry Branch Body height 2022-01-15 03:16:00 172.7 cm Universi ty of [place] [facility] Body weight 2022-01-15 03:16:00 80.967 kg Universi ty of [place] [facility] BMI 2022-01-15 03:16:00 27.14 kg/m2 Universi ty of [place] [facility] Systolic blood 2022-01-08 09:28:00 120 mm[Hg] Univer sity of pressure [place] [facility] Diastolic blood 2022-01-08 09:28:00 77 mm[Hg] Unive rsity of pressure [place] [facility] Heart rate 2022-01-08 09:28:00 123 /min Universi ty of [place] [facility] Body temperature 2022-01-08 09:28:00 37.78 Lela Univ ersity of [place] [facility] Respiratory rate 2022-01-08 09:28:00 20 /min Univ ersity of [place] [facility] Body weight 2022-01-08 09:28:00 77.111 kg Universi ty of [place] [facility] BMI 2022-01-08 09:28:00 25.85 kg/m2 Universi ty of [place] [facility] Oxygen saturation in 2022-01-08 09:28:00 98 /min University of Arterial blood by [facility] arturo Pulse oximetry Branch Systolic blood 2021-12-08 22:24:00 111 mm[Hg] Univer sity of pressure [place] [facility] Diastolic blood 2021-12-08 22:24:00 66 mm[Hg] Unive rsity of pressure [place] [facility] Heart rate 2021-12-08 22:24:00 73 /min Universi ty of [place] [facility] Body temperature 2021-12-08 22:24:00 36.94 Lela Univ ersity of [place] [facility] Respiratory rate 2021-12-08 22:24:00 16 /min Univ ersity of [place] [facility] Oxygen saturation in 2021-12-08 22:24:00 98 /min University of Arterial blood by [place] [employer] arturo Pulse oximetry Branch Body weight 2021-12-05 07:41:00 77.111 kg Universi ty of [place] [facility] BMI 2021-12-05 07:41:00 25.85 kg/m2 Universi ty of [place] [facility] Systolic blood 2021-11-22 05:19:00 136 mm[Hg] Univer sity of pressure [place] [facility] Diastolic blood 2021-11-22 05:19:00 83 mm[Hg] Unive rsity of pressure [place] [facility] Heart rate 2021-11-22 05:19:00 113 /min Universi ty of [place] [facility] Respiratory rate 2021-11-22 05:19:00 19 /min Univ ersity of [place] [facility] Oxygen saturation in 2021-11-22 05:19:00 100 /min University of Arterial blood by [facility] Pulse oximetry Branch Body temperature 2021-11-22 02:47:00 36.61 Lela Univ ersity of [place] [facility] Body weight 2021-11-22 02:47:00 77.111 kg Universi ty of [place] [facility] BMI 2021-11-22 02:47:00 25.85 kg/m2 Universi ty of [place] [facility] Systolic blood 2021-09-24 09:06:00 130 mm[Hg] Univer sity of pressure [place] [facility] Diastolic blood 2021-09-24 09:06:00 87 mm[Hg] Unive rsity of pressure [place] [facility] Heart rate 2021-09-24 09:06:00 115 /min Universi ty of [place] [facility] Respiratory rate 2021-09-24 09:06:00 20 /min Univ ersity of [place] [facility] Oxygen saturation in 2021-09-24 09:06:00 96 /min University of Arterial blood by [place] [employer] arturo Pulse oximetry Branch Body temperature 2021-09-24 05:04:00 37 Lela Univ ersity of [place] [facility] Body height 2021-09-24 05:04:00 172.7 cm Universi ty of [place] [facility] Body weight 2021-09-24 05:04:00 77.111 kg Universi ty of [place] [facility] BMI 2021-09-24 05:04:00 25.85 kg/m2 Universi ty of [place] [facility] Systolic blood 2020-04-16 17:31:00 146 mm[Hg] Univer sity of pressure [place] [facility] Diastolic blood 2020-04-16 17:31:00 99 mm[Hg] Unive rsity of pressure [place] [facility] Heart rate 2020-04-16 17:31:00 90 /min Universi ty of [place] [facility] Respiratory rate 2020-04-16 17:31:00 18 /min Univ ersity of [place] [facility] Oxygen saturation in 2020-04-16 17:31:00 99 /min University of Arterial blood by [facility] arturo Pulse oximetry Branch Body temperature 2020-04-16 15:36:00 36.56 Lela Univ ersity of [place] [facility] Body weight 2020-04-16 15:36:00 68.04 kg Universi ty of [place] [facility] BMI 2020-04-16 15:36:00 23.49 kg/m2 Universi ty of [place] [facility] Systolic blood 2019-08-22 18:00:00 128 mm[Hg] Univer sity of pressure [place] [facility] Diastolic blood 2019-08-22 18:00:00 84 mm[Hg] Unive rsity of pressure [place] [facility] Heart rate 2019-08-22 18:00:00 76 /min Universi ty of [place] [facility] Respiratory rate 2019-08-22 18:00:00 16 /min Univ ersity of [place] [facility] Oxygen saturation in 2019-08-22 18:00:00 99 /min University of Arterial blood by [facility] arturo Pulse oximetry Branch Body temperature 2019-08-22 10:53:00 36.78 Lela Univ ersity of [place] [facility] Body weight 2019-08-21 03:07:00 63.504 kg Universi ty of [place] [facility] BMI 2019-08-21 03:07:00 21.93 kg/m2 Universi ty of [place] [facility] Systolic blood 2019-08-22 18:00:00 128 mm[Hg] Univer sity of pressure [place] [facility] Diastolic blood 2019-08-22 18:00:00 84 mm[Hg] Unive rsity of pressure [place] [facility] Heart rate 2019-08-22 18:00:00 76 /min Universi ty of [place] [facility] Respiratory rate 2019-08-22 18:00:00 16 /min Univ ersity of [place] [facility] Oxygen saturation in 2019-08-22 18:00:00 99 /min University of Arterial blood by [place] [facility] arturo Pulse oximetry Branch Body temperature 2019-08-22 10:53:00 36.78 Lela Univ ersity of [place] [facility] Body weight 2019-08-21 03:07:00 63.504 kg Universi ty of [place] [facility] BMI 2019-08-21 03:07:00 21.93 kg/m2 Universi ty of [place] [facility] Systolic blood 2019-08-18 01:47:00 155 mm[Hg] Univer sity of pressure [place] [facility] Diastolic blood 2019-08-18 01:47:00 90 mm[Hg] Unive rsity of pressure [place] [facility] Heart rate 2019-08-18 01:47:00 102 /min Universi ty of [place] [facility] Body temperature 2019-08-18 01:47:00 36.67 Lela Univ ersity of [place] [facility] Respiratory rate 2019-08-18 01:47:00 20 /min Univ ersity of [place] [facility] Body weight 2019-08-18 01:47:00 70.308 kg Universi ty of [place] [facility] BMI 2019-08-18 01:47:00 24.28 kg/m2 Universi ty of [place] [facility] Oxygen saturation in 2019-08-18 01:47:00 99 /min University of Arterial blood by [facility] Pulse oximetry Branch Systolic blood 2019-08-18 01:47:00 155 mm[Hg] Univer sity of pressure [place] [facility] Diastolic blood 2019-08-18 01:47:00 90 mm[Hg] Unive rsity of pressure [place] [facility] Heart rate 2019-08-18 01:47:00 102 /min Universi ty of [place] [facility] Body temperature 2019-08-18 01:47:00 36.67 Lela Univ ersity of [place] [facility] Respiratory rate 2019-08-18 01:47:00 20 /min Univ ersity of [place] [facility] Body weight 2019-08-18 01:47:00 70.308 kg Universi ty [facility] [place] [facility] BMI 2019-08-18 01:47:00 24.28 kg/m2 Universi ty [facility] [place] [facility] Oxygen saturation in 2019-08-18 01:47:00 99 /min University of Arterial blood by [facility] arturo Pulse oximetry Branch Systolic blood 2019-08-13 23:34:00 119 mm[Hg] Univer sity of pressure [place] [facility] Diastolic blood 2019-08-13 23:34:00 67 mm[Hg] Unive rsity of pressure [place] [facility] Heart rate 2019-08-13 23:34:00 85 /min Universi ty of [place] [facility] Body temperature 2019-08-13 23:34:00 37.06 Lela Univ ersity of [place] [facility] Respiratory rate 2019-08-13 23:34:00 18 /min [facility] Body height 2019-08-13 23:34:00 170.2 cm [facility] Body weight 2019-08-13 23:34:00 68.947 kg [facility] BMI 2019-08-13 23:34:00 23.81 kg/m2 [facility] Oxygen saturation in 2019-08-13 23:34:00 99 /min [facility] of Arterial blood by [employer] arturo Pulse oximetry Branch Systolic blood 2019-08-13 23:34:00 119 mm[Hg] [facility] [place] [facility] Diastolic blood 2019-08-13 23:34:00 67 mm[Hg] [facility] [place] [facility] Heart rate 2019-08-13 23:34:00 85 /min [facility] Body temperature 2019-08-13 23:34:00 37.06 Lela [facility] Respiratory rate 2019-08-13 23:34:00 18 /min [facility] Body height 2019-08-13 23:34:00 170.2 cm [facility] Body weight 2019-08-13 23:34:00 68.947 kg [facility] BMI 2019-08-13 23:34:00 23.81 kg/m2 [facility] Oxygen saturation in 2019-08-13 23:34:00 99 /min [facility] of Arterial blood by [employer] arturo Pulse oximetry Branch Systolic blood 2019-03-03 08:00:00 143 mm[Hg] [facility] [place] [facility] Diastolic blood 2019-03-03 08:00:00 99 mm[Hg] [facility] [place] [facility] Heart rate 2019-03-03 08:00:00 85 /min [facility] [place] [facility] Respiratory rate 2019-03-03 08:00:00 16 /min [facility] Oxygen saturation in 2019-03-03 08:00:00 99 /min University of Arterial blood by [facility] Pulse oximetry Branch Body weight 2019-03-03 07:55:00 72.122 kg [facility] Body temperature 2019-03-03 07:42:00 36.94 Lela [facility] of [facility] Systolic blood 2019-03-03 08:00:00 143 mm[Hg] Univer [facility] Diastolic blood 2019-03-03 08:00:00 99 mm[Hg] Unive rsity of [facility] Heart rate 2019-03-03 08:00:00 85 /min [facility] Respiratory rate 2019-03-03 08:00:00 16 /min [facility] Oxygen saturation in 2019-03-03 08:00:00 99 /min [facility] Arterial blood by [facility] Pulse oximetry Branch Body weight 2019-03-03 07:55:00 72.122 kg [facility] Body temperature 2019-03-03 07:42:[address] [facility] Height/Length 2021-07-15 10:28:49 172 cm Measured [...] Health BP Systolic 2020-08-03 15:36:00 114 mm[Hg] [facility] Heart Rate 2020-08-03 15:36:00 69 /min [facility] Health Respiratory rate 2020-08-03 15:36:00 18 /min [facility] Body Temperature 2020-08-03 15:36:00 98.7 [degF] [facility] BP Diastolic 2020-08-03 15:10:00 81 mm[Hg] [facility] BP Systolic 2020-08-03 15:10:00 114 mm[Hg] [facility] Heart Rate 2020-08-03 15:10:00 69 /min [facility] Respiratory rate 2020-08-03 15:10:00 18 /min [facility] [employer] [facility] Body Temperature 2020-08-03 15:10:00 98.7 [degF] [facility] [employer] Procedures Procedure Date / Time Performing Clinician Source Performed COVID-19 (MOLECULAR 2022-01-31 09:18:00 Mariam Palencia [facility] TESTING [facility] NUCLEIC ACID AMPLIFICATION) URINALYSIS 2022-01-31 02:58:00 Mariam Palencia [facility] URINE DRUG (IMMUNOASSAY) 2022-01-31 02:58:00 Mariam Palencia [facility] nch SCREEN W/O REFLEX CREATINE KINASE 2022-01-31 01:37:00 Mariam Palencia [facility] THYROID STIMULATING 2022-01-31 01:37:00 Mariam Palencia [facility] HORMONE [facility] COMP. METABOLIC PANEL 2022-01-31 01:37:00 Mariam Palencia [facility] ([id number]) [facility] SALICYLATE 2022-01-31 01:37:00 Mariam Palencia [facility] ETHANOL 2022-01-31 01:37:00 Mariam Palencia [facility] CBC WITH DIFF 2022-01-31 01:37:00 Mariam Palencia [facility] COVID-19 (ID NOW RAPID 2022-01-31 01:37:00 Mariam Palencia [facility] TESTING) Medical [place] URINALYSIS 2022-01-27 02:59:00 Cindy Atkinson o f [facility] CREATINE KINASE 2022-01-27 02:40:00 China [facility] LIPASE 2022-01-27 02:40:00 China [facility] COMP. METABOLIC PANEL 2022-01-27 02:40:00 [id number] CBC WITH DIFF 2022-01-27 02:40:00 [facility] 2022-01-23 19:30:00 [facility] BAS[facility]OLIC PANEL 2022-01-23 19:30:00 [facility] (NA, K, CL, CO2, GLUCOSE, Medica l Branch BUN, CREATININE, CA) CREATINE KINASE 2022-01-23 10:57:00 [facility] MAGNESIUM 2022-01-23 10:57:00 [facility] BASIC METABOLIC PANEL 2022-01-23 10:57:00 [facility] (NA, K, CL, CO2, GLUCOSE, Medica l Branch BUN, CREATININE, CA) CBC WITH DIFF 2022-01-23 10:57:00 [facility] CREATINE KINASE 2022-01-22 21:24:00 Roberto [facility] MYOGLOBIN SERUM 2022-01-22 21:24:00 [facility] COVID-19 (ID NOW RAPID 2022-01-22 21:24:00 Óscar Mejia [facility] TESTING) Medical [place] LAB ONLY COVID 2022-01-22 21:24:00 Roberto [facility] URINE DRUG (IMMUNOASSAY) 2022-01-22 10:41:00 Lyle Alberts [facility] DRUG Medical [facility] SCREEN URINALYSIS 2022-01-22 10:41:00 Ashvin [facility] ETHANOL 2022-01-22 06:25:00 Lyle Alberts [facility] CBC WITH DIFF 2022-01-22 06:25:00 Lyle Alberts [facility] COVID-19 (ID NOW RAPID 2022-01-22 06:25:00 Lyle Alberts [facility] TESTING) Medical Branch LAB ONLY COVID 2022-01-22 06:25:00 [facility] INTERPRETATION [facility] CREATINE KINASE 2022-01-22 06:25:00 [facility] COMP. METABOLIC PANEL 2022-01-22 06:25:00 Lyle Alberts [facility] ([id number]) Medical Branch SALICYLATE 2022-01-22 06:25:00 Lex[facility] CREATINE KINASE 2022-01-16 09:08:00 [facility] 2022-01-16 09:08:00 [facility] BASIC METABOLIC PANEL 2022-01-16 09:08:00 [facility] (NA, K, CL, CO2, GLUCOSE, [employer] Medica l Branch BUN, CREATININE, CA) CREATINE KINASE 2022-01-15 17:25:00 Saurabh [facility] CREATINE KINASE 2022-01-15 09:43:00 Saurabh [facility] MAGNESIUM 2022-01-15 09:43:00 Saurabh [facility] BASIC METABOLIC PANEL 2022-01-15 09:43:00 Saurabh, [facility] (NA, K, CL, CO2, GLUCOSE, Medica l Branch BUN, CREATININE, CA) CBC WITH DIFF 2022-01-15 09:43:00 Saurabh [facility] CREATINE KINASE 2022-01-14 22:44:00 Saurabh [facility] CREATINE KINASE 2022-01-14 17:43:00 Saurabh [facility] BASIC METABOLIC PANEL 2022-01-14 17:43:00 Saurabh [facility] (NA, K, CL, CO2, GLUCOSE, Medica l Branch BUN, CREATININE, CA) URINALYSIS 2022-01-14 05:31:00 Margo, [facility] URINE DRUG (IMMUNOASSAY) 2022-01-14 05:31:[address] [facility] SCREEN W/O REFLEX CREATINE KINASE 2022-01-14 04:51:00 Margo [facility] COMP. METABOLIC PANEL 2022-01-14 04:51:00 Norbert Aragon [facility] ([id number]) [facility] SALICYLATE 2022-01-14 04:51:00 Margo [facility] ETHANOL 2022-01-14 04:51:00 Margo [facility] CBC WITH DIFF 2022-01-14 04:51:00 Margo [facility] COVID-19 (ID NOW RAPID 2022-01-14 04:51:00 Norbert Aragon [facility] TESTING) [facility] LAB ONLY COVID 2022-01-14 04:51:00 Margo [facility] URINALYSIS 2021-12-05 16:37:00 Mariam Hernandez [facility] URINE DRUG (IMMUNOASSAY) 2021-12-05 09:48:00 Ld Franklin [facility] SCREEN CREATINE KINASE 2021-12-05 08:34:00 Ld Franklin [facility] COMP. METABOLIC PANEL 2021-12-05 08:34:00 Ld Franklin [facility] ([id number]) [facility] ETHANOL 2021-12-05 08:34:00 Ld Franklin [facility] SERUM DRUG (IMMUNOASSAY) 2021-12-05 08:34:00 Ld Franklin [facility] SCREEN CBC WITH DIFF 2021-12-05 08:34:00 Ld Franklin [facility] COVID-19 (MOLECULAR 2021-12-05 08:34:00 Ld Franklin [facility] TESTING [facility] NUCLEIC ACID AMPLIFICATION) LAB ONLY COVID 2021-12-05 08:34:00 Ld Franklin [facility] CREATINE KINASE 2021-11-22 04:56:00 Robert Stevens [facility] CREATINE KINASE 2021-11-22 03:55:00 Robert Stevens [facility] COMP. METABOLIC PANEL 2021-11-22 03:55:00 Robert Stevens [facility] ([id number]) Medical Branch SALICYLATE 2021-11-22 03:10:00 Robert Stevens [facility] ETHANOL 2021-11-22 03:10:00 Robert Stevens [facility] CBC WITH DIFF 2021-11-22 03:10:00 Ju Stevensian Maria L [facility] COVID-19 (ID NOW RAPID 2021-11-22 03:10:00 Robert Stevens [facility] TESTING) Medical Branch XR FINGERS 2 VW RIGHT 2020-04-16 16:58:04 Domitila Patel [facility] XR CERVICAL SPINE 3 VW 2020-04-16 16:57:12 Domitila Patel [facility] GALV/CLC ONLY - URINE 2019-08-21 04:53:00 Michael Carpenter [facility] DRUG (IMMUNOASSAY) - Medical [facility] COMPREHENSIVE DRUG SCREEN URINALYSIS 2019-08-21 04:53:00 Michael Carpenter [facility] CREATINE KINASE 2019-08-21 03:32:00 [facility] HEPATIC FUNCTION PANEL 2019-08-21 03:32:00 Michael Carpenter [facility] ([id number]) (ALB,T.PRO,BILI Medical Branch T,BU/BC,ALT,AST,ALK PHOS) BASIC METABOLIC PANEL 2019-08-21 03:32:00 Michael Carpenter [facility] (NA, K, CL, CO2, GLUCOSE, Medica l Branch BUN, CREATININE, CA) SALICYLATE 2019-08-21 03:32:00 Michael Carpenter [facility] ETHANOL 2019-08-21 03:32:00 [facility]ENTIAL 2019-08-21 03:32:00 Michael Carpenter [facility] EMERGENCY DEPARTMENT 2019-08-20 06:01:00 Doctor Unassigned, [facility] DOCUMENTS [place] [facility] CT CERVICAL SPINE WO 2019-08-14 00:32:44 [facility] CT HEAD WO CONTRAST 2019-08-14 00:32:[address] [facility] XR CHEST 2 VW 2019-08-14 00:25:39 [facility] XR HAND 3+ VW RIGHT 2019-03-03 08:22:02 [facility] Encounters Start End Encounter Admission Attending Care Care Encounter Source Date/Time Date/Time Type Type Clinicians Facility Department ID 2022-04-10 Outpatient [facility] [id number] [place] 22:42:33 [id number] [facility] 2022-03-30 Outpatient [facility] [id number] [place] 22:23:43 [id number] [facility] 2022-03-09 Emergency HFD HFD [id number] GAYE - 11:55:17 [place] [facility] 2022-01-22 Outpatient [facility] [id number] [place] 17:40:51 [id number] [facility] 2021-12-05 Outpatient [facility] [id number] [place] 15:34:09 [id number] [facility] 2021-04-20 Outpatient [facility] [id number] [facility] 22:53:11 -[id number] [facility] 2019-09-01 Inpatient HCAPM KAYLEE [id number] [facility] 06:12:00 46 [facility] 2019-08-31 Inpatient HCAPM KAYLEE [id number] [facility] 19:06:00 66 [facility] 2022-03-21 2022-03-21 Outpatient CINDY_STEPHANI_ [facility] [id number] Otto 00:00:00 00:00:00 [id number] [facility] 2022-03-09 2022-03-09 Outpatient CINDY_STEPHANI_ [facility] [id number] Domenica 00:00:00 00:00:00 MD Luis [facility] 2022-02-12 2022-02-13 Emergency [facility] [id number] Santana 08:44:00 20:25:00 [facility] 2022-02-12 2022-02-12 Emergency 1 JEANMARIE RAMON [facility] [id number] [place] 08:44:00 08:44:00 [facility] 2022-02-11 2022-02-11 Emergency [facility] [id number] [facility] 04:57:00 09:50:00 Lukuman 71 2022-02-11 2022-02-11 Emergency [facility] [id number] [facility] 04:57:00 04:57:00 71 2022-02-09 2022-02-10 Emergency E BIRGIT, [facility] [id number] [facility] 21:11:00 21:33:00 [facility] 2022-02-09 2022-02-09 Emergency E BIRGIT, [facility] [id number] [facility] 09:41:00 17:31:00 [facility] 2022-02-07 2022-02-07 Emergency Emergency Guirges, [facility] [id number] [facility] 11:37:00 20:30:00 Hemal 49 2022-02-07 2022-02-07 Emergency [facility] [id number] [facility] 11:37:00 11:37:00 49 2022-02-07 2022-02-07 Emergency Emergency Afuwape, [facility] [id number] SJm 00:06:00 07:50:00 Lukuman 29 2022-02-07 2022-02-07 Emergency Emergency Afuwape, [facility] [id number] [facility] 00:06[facility]00 00:06:00 Lukuman 29 2022-02-05 2022-02-05 Emergency Emergency Ham, Jose [facility] [id number] [facility] 18:15:00 21:41:00 61 2022-02-05 2022-02-05 Emergency Emergency Guirges, [facility] [id number] SJm 14:52:00 17:19:00 Hemal 27 2022-02-05 2022-02-05 Emergency [facility] [id number] [facility] 14:52:00 14:52:00 27 2022-02-04 2022-02-04 Emergency X TALHA [facility] [id number] Univers 14:23:00 16:58:00 MARIAM ity [facility] 2022-02-04 2022-02-04 Emergency Palencia, TRAUMA [id number] Univers 14:23:00 16:58:00 Mariam CENTER [id number] [id number] [address] 2022-01-30 2022-01-31 Emergency X DAISY MARCOS [facility] [id number] Univers 19:17:00 10:00:00 MARCOS VILLA marlee [facility] 2022-01-30 2022-01-31 Emergency Mariam Palencia TRAUMA 1.2.840 .[id number] Univers 19:17:00 10:00:00 Marcos Villa PERTH [id number] [place] [id number] [address] 2022-01-26 2022-01-26 Emergency X NANY SON [facility] 1 [id number] Univers 19:15:00 23:37:00 NANY SON itmarlee [facility] 2022-01-26 2022-01-26 Emergency Cindy Atkinson TRAUMA 1.2.840.1 [id number] Univers 19:15:00 23:37:00 Nany Son PER[place] [id number] [id number] [address] 2022-01-22 2022-01-23 Inpatient X MANUELITO [facility] [id number] Univers 00:46:00 17:25:00 HOLLY ity [facility] 2022-01-22 2022-01-23 [facility] Lyle Alberts 1.2.840.1 [id number] Univers 00:46:00 17:25:00 Óscar Ovalle [id number] ity of [facility] 4.2.7.2. 686 [place] Kiko Tatum [id number] [place] [id number] Branch 2022-01-19 2022-01-19 Transition IAN Martinez 1.2.840.114 [id number] Univers 00:00:00 00:00:00 of Care Adonis FREEMAN [id number] [place] [id number] [facility] 403 Branch 2022-01-13 2022-01-16 Inpatient X BELÉN, [facility] [id number] Univers 18:13:00 17:03:00 JAMES ity of [facility] 2022-01-13 2022-01-16 [facility] Margo Norbert CINTHIA 1.2.840. 114 [id number] Univers 18:13:00 17:03:00 Encounter Nany Son 350.1.13.10 ity of [facility] 4.2.7.2.686 [place] James Melissa [id number] [place] [address] Branch 2022-01-08 2022-01-08 Emergency X MARIA INES BALLESTEROS [facility] [id number] Univers 04:31:00 07:37:00 MARIA INES BALLESTEROS itmarlee of [facility] 2022-01-08 2022-01-08 Emergency Kalpesh, TRAUMA [id number] Univers 04:31:00 07:37:00 Maria Ines PERTH 350.1.13.10 [place] [id number] [facility] 014 Branch 2021-12-05 2021-12-08 Emergency X PERFECTO GUTIERRES [facility] 1 [id number] Univers 02:46:00 18:40:00 PERFECTO GUTIERRES ity of [facility] 2021-12-05 2021-12-08 Emergency Ld Franklin J TRAUMA 1.2.840.1 [id number] Univers 02:46:00 18:40:00 Mariam Hernandez 350.1.13.10 ity of Perfecto Gutierres 4.2.7.2.686 [place] Lucien Alfaro [id number] [facility] Vipul Barreto [facility] Branch Shyanne Pyle S 2021-11-21 2021-11-22 Emergency X ROBERT STEVENS [facility] [id number] Univers 21:50:00 00:44:00 ity of [facility] 2021-11-21 2021-11-22 Emergency Robert Stevens TRAUMA 1.2.840.114 [id number] Univers 21:50:00 00:44:00 W CENTER 350.1.13.10 it y of 4.2.7.2.686 [facility] [id number] [facility] 014 Branch 2021-09-24 2021-09-24 Emergency X Domitila PATEL [facility] [id number] Univers 00:12:00 04:10:00 ity of [facility] 2021-09-24 2021-09-24 Emergency Amanda [facility] 1.2.840.114 [id number] Univers 00:12:00 04:10:00 Dayana SIMPSON 350.1.13.10 i ty of [place] 4.2.7.2.686 [facility] [id number] [address] 2020-08-03 2020-08-03 Departed CAROLYNN PRADHAN [id number] CHRISTU 15:06:00 15:37:00 Emergency [facility] 2020-04-16 2020-04-16 Emergency Amanda [facility] 1.2.840.114 [id number] Univers 10:38:00 14:15:00 Dayana Simpson 350.1.13.10 i ty of [place] 4.2.7.2.686 [facility] [id number] [address] 2020-04-16 2020-04-16 Emergency X Domitila PATEL [facility] [id number] Univers 10:38:00 10:38:00 ity of [facility] 2019-09-20 2019-09-20 Outpatient [facility] [id number] Santana 00:00:00 00:00:00 Health 2019-08-31 2019-08-31 [facility] MED [id number] Lee 01:49:22 01:49:22 [facility] 2019-08-20 2019-08-22 Emergency SchMichael jane TRAUMA 1.2.8 40.114 [id number] Univers 21:07:32 13:58:00 Lucien Alfaro E CENTER 350.1.13.10 [place] [id number] [address] 2019-08-20 2019-08-22 Emergency SchMichael jane TRAUMA 1.2.8 40.114 [id number] 21:07:32 13:58:00 Lucien Alfaro E CENTER 350.1.13.10 4.2.7.2.686 [id number] 2019-08-20 2019-08-20 Emergency X SCHOENSTEIN [facility] [id number] Univers 21:07:32 21:07:32 , MICHAEL ity [facility] 2019-08-17 2019-08-17 Emergency X CHELSEA, [facility] [id number] Univers 19:59:42 20:28:00 KATYE ity [facility] 2019-08-17 2019-08-17 Emergency Chelsea, TRAUMA [id number] [id number] Univers 19:59:42 20:28:00 Katye R CENTER 350.1.13.10 [place] [id number] [address] 2019-08-17 2019-08-17 Emergency Chelsea, TRAUMA [id number] [id number] 19:59:42 20:28:00 Katye R CENTER 350.1.13.10 4.2.7.2.686 [id number] 014 2019-08-13 2019-08-13 Emergency X MORRICAL, [facility] [id number] Univers 17:35:49 19:40:00 LOPEZ ity [facility] 2019-08-13 2019-08-13 Emergency Morrical, TRAUMA 1.2.840.114 [id number] Univers 17:35:49 19:40:00 Lopez O CENTER 350.1.13.10 [place] [id number] [facility] 014 Branch 2019-08-13 2019-08-13 Emergency Morrical, TRAUMA 1.2.840.114 [id number] 17:35:49 19:40:00 Lopez Edwards PERTH 350.1.13.10 4.2.7.2.686 [id number] 014 2019-03-03 2019-03-03 Emergency [facility] [id number] [id number] [facility] 02:40:06 03:52:00 Anna Marie Simpson 350.1.13.10 ity of [place] 4.2.7.2.686 [facility] [id number] [facility] 084 Branch 2019-03-03 2019-03-03 Emergency [facility] [id number] 02:40:06 03:52:00 Anna Marie Simpson 350.1.13.10 [place] 4.2.7.2.686 [place] [id number] [facility] 2019-02-17 2019-02-17 Emergency [facility] [id number] Max 07:34:17 07:34:17 Health 2019-02-17 2019-02-17 Emergency [facility] MED [id number] Max 02:21:51 02:21:51 Health 2019-01-21 2019-01-31 Inpatient 1 En Cota [facility] PSY [id number] St. 10:32:00 13:54:00 En Cota [facility] 2019-01-21 2019-01-[address]114 [id number] [facility] 15:06:32 23:59:00 Encounter En [place] 350.1.13.10 ity of MEDICAL 4.2.7.2.686 [facility] s PERTH [id number] [facility] 060 Branch 2019-01-21 2019-01-21 [facility] 12.840.114 [id number] 15:06:32 23:59:00 Encounter En [place] 350.1.13.10 MEDICAL 4.2.7.2.686 CENTER [id number] 2018-11-01 2018-11-09 Inpatient 1 En Cota [facility] PSY [id number] St. 14:32:00 13:51:00 En Cota [facility] Results Test Description Test Time Test Comments Results Result Comments Source SARS-CoV-2 RNA Resp Ql VANE+probe 2022-02-12 14:18:35 Test Item Value Reference Range Interpretation Comme nts Hospitalized? (test code = Yes 22985-0) ICU? (test code = 34210-5) No Symptomatic as defined by CDC? No (test code = 70671-1) Employed in Healthcare? (test No code = 46817-7) Resident in a congregate care No setting (including nursing homes, residential care for people with intellectual and developmental disabilities, psychiatric treatment facilities, group homes, board and care homes, homeless fci, foster care or other): (test code = 85402-3) SARS-CoV-2 RNA Resp Ql NOT DETECTED Not Detected INTER PRETATION: No VANE+probe (test [place] = [place] [address]-7) SARS-CoV-2 [facility] navirus (COVID-19) were present in [...] its performance characteristics were verified by the [facility] molecular diagnostics laboratory and is authorized for clinical diagnostic use. This laboratory is certified under the Clinical Laboratory Improvement Amendments (CLIA) as qualified to perform high complexity clinical laboratory testing.LEO Urinalysis Rflx Cult/[id number] 05:36:00 Test Item Value Reference Range Interpretation Comments Color,Urine (test code = UCOL) Yellow Yellow Clarity,Urine (test code = Clear Clear UCLAR) Ph, Urine (test code = UPH) 7.0 5.0-9.0 N Specific [place],Urine (test 1.025 1.005-1.030 N code = USG) [...] = ULEU) UF REFLEXComplete Blood Count Auto [id number] 05:36:00 Test Item Value Reference Range Interpretation [...] (test code = NRBCP) 0 % Urine [id number] 05:36:00 Test Item Value Reference Range Interpretation Comments RBC,Urine (test code = URBC.MEDICAL AUDITOR) 0-2 /HPF 0-2 WBC,Urine (test code = UWBC.MEDICAL AUDITOR) 0-5 /HPF 0-5 Bacteria,Urine (test code = Few /HPF None Seen A UBACT.MEDICAL AUDITOR) Squamous Epithelial Cell,Urine (test 0-5 /HPF 0-5 code = USQEPI.MEDICAL AUDITOR) Amorphous Crystals,Urine (test code Few /HPF None Seen A = UAMSE) Hyaline Casts,Urine (test code = 0-2 None Seen A UHYALC.XX) Granular Casts,Urine (test code = 0-1 None Seen A UGRANC.XX) UF REFLEXComprehensive Metabolic [id number] 05:36:00 Test Item Value Reference Range Interpretation [...] 74 U/L 46-116 N = ALP) Ethanol [id number] 05:36:00 Test Item Value Reference Range Interpretation Comments Ethanol (test code 3 mg/dL The pharm acological = ETOH) response to blo od alcohol levels mayvary from individual to i ndividual. The fatal giovanna ntrationhas been reported t o be >400mg/dL. Drug Screen,[id number] 05:36:00 Test Item Value Reference Range Interpretation [...] (test code = UPROP) Coronavirus PCR, COVID19 [id number] 05:36:00 Test Item Value Reference Range Interpretation Comments Coronavirus PCR, COVID19 Rapid (test code = SARSCOV2) Coronavirus PCR, COVID19 Reference Range: Rapid (test code = Negative OIIZZLA38.1) SARS-CoV-2 PCR Result: Negative by RT-PCR (test code = SARS-CoV-2 PCR Result:) COVID-19 Status: AsymptomaticUA, Urinalysis Rflx Cult/Mzcdl7012-61-51 12:22:00 Test Item Value Reference Range Interpretation Comments Color,Urine (test code = UCOL) Yellow Yellow Clarity,Urine (test code = Clear Clear UCLAR) Ph, Urine (test code = UPH) 5.5 5.0-9.0 N Specific [place],Urine (test 1.015 1.005-1.030 N code = USG) [...] Negative code = ULEU) UF REFLEXUF REFLEXUrine Mrvegustxtr5593-84-59 12:22:00 Test Item Value Reference Range Interpretation Comments RBC,Urine (test code = URBCUF) None Seen /HPF 0-2 WBC,Urine (test code = UWBCUF) 0-5 /HPF 0-5 Epithelial Cell,Urine (test 0-5 /HPF 0-5 code = UECUF) Casts,Urine (test code = 0-5 /LPF None Seen UCASTUF) Bacteria,Urine (test code = None Seen /hpf None Seen UBACTUF) UF REFLEXUF REFLEXDrug Screen,[id number] 12:22:00 Test Item Value Reference Range Interpretation [...] code = UPROP) Complete Blood Count Auto [id number] 11:59:00 Test Item Value Reference Range Interpretation [...] code = NRBCP) 0 % Comprehensive Metabolic Lwmca0755-07-21 11:59:00 Test Item Value Reference Range Interpretation [...] 68 U/L 46-116 N = ALP) Ethanol Kriul4857-06-65 11:59:00 Test Item Value Reference Range Interpretation Comments Ethanol (test code < 3 mg/dL The pharm acological = ETOH) response to blo od alcohol levels mayvary from individual to i ndividual. The fatal giovanna ntrationhas been reported t o be >400mg/dL. UA, Urinalysis Rflx Cult/Fxdqp0268-14-06 04:55:00 Test Item Value Reference Range Interpretation Comments Color,Urine (test code = UCOL) Yellow Yellow Clarity,Urine (test code = Clear Clear UCLAR) Ph, Urine (test code = UPH) 5.5 5.0-9.0 N Specific [place],Urine (test 1.010 1.005-1.030 N code = USG) [...] Negative mg/dL Negative code = ULEU) Drug Screen,Qwhxw2855-37-32 04:55:00 Test Item Value Reference Range Interpretation [...] Negative Urine (test code = UPROP) Lactic [id number] 04:50:00 Test Item Value Reference Range Interpretation Comments Lactic Acid (test code = LACTIC) 1.0 mmol/L 0.5-2.0 N Troponin I High Fcrwnioyhzm3735-00-77 04:40:00 Test Item Value Reference Range Interpretation [...] evaluated in conjunctionwith clinical findin gs. Creatine Llwnff1435-99-18 01:15:00 Test Item Value Reference Range Interpretation Comments Creatine Kinase (test code = CK) 477 U/L 46-171 H Troponin I High Zbsctczvjml1231-90-85 01:15:00 Test Item Value Reference Range Interpretation [...] evaluated in conjunctionwith clinical findin gs. Lactic Tmlk6287-44-17 01:15:00 Test Item Value Reference Range Interpretation Comments Lactic Acid (test 4.5 mmol/L 0.5-2.0 HH Critical v alue called code = LACTIC) to walter schuster ck by amber marcus[] on: 02/07/22 at 021 4by RDB11. Lactic Acid Collected YProthrombin Time TJD2385-85-27 01:15:00 Test Item Value Reference Range Interpretation [...] 3.5 Mechanical Hear t, Intracardiac Thrombosis. Blood Lrevukg7040-47-76 01:15:00 Test Item Value Reference Range Interpretation Comments Blood Culture (test NO GROWTH AFTER 5 DAYS code = BC) Blood Rpggtef1990-45-00 01:15:00 Test Item Value Reference Range Interpretation Comments Blood Culture (test NO GROWTH AFTER 5 DAYS code = BC) Complete Blood Count Auto [id number] 00:39:00 Test Item Value Reference Range Interpretation [...] code = NRBCP) 0 % Comprehensive Metabolic Bxnrq4581-06-56 00:39:00 Test Item Value Reference Range Interpretation [...] 73 U/L 46-116 N = ALP) Ethanol Fmidl3244-10-01 00:39:00 Test Item Value Reference Range Interpretation Comments Ethanol (test code < 3 mg/dL The pharm acological = ETOH) response to blo od alcohol levels mayvary from individual to i ndividual. The fatal giovanna ntrationhas been reported t o be >400mg/dL. Coronavirus PCR, COVID19 [id number] 00:20:00 Test Item Value Reference Range Interpretation Comments Coronavirus PCR, For use under Emergency COVID19 Rapid (test Use Authorization (EUA) code = SARSCOV2) only. Coronavirus PCR, Reference Range: COVID19 Rapid (test Negative code = KFGCXFU00.1) SARS-CoV-2 PCR Result: Negative by RT-PCR (test code = SARS-CoV-2 PCR Result:) COVID-19 Status: AsymptomaticUA, Urinalysis Rflx Cult/Ohzoa8949-67-53 15:17:00 Test Item Value Reference Range Interpretation Comments Color,Urine (test code = UCOL) Yellow Yellow Clarity,Urine (test code = Clear Clear UCLAR) Ph, Urine (test code = UPH) 6.0 5.0-9.0 N Specific [place],Urine (test >= 1.030 1.005-1.030 N code = [...] Negative code = ULEU) UF REFLEXUF REFLEXUrine Pcuwowqyuta1626-78-06 15:17:00 Test Item Value Reference Range Interpretation Comments RBC,Urine (test code = URBCUF) 0-2 /HPF 0-2 WBC,Urine (test code = UWBCUF) 6-10 /HPF 0-5 A Epithelial Cell,Urine (test None Seen /HPF 0-5 code = UECUF) Casts,Urine (test code = None Seen /LPF None Seen UCASTUF) Bacteria,Urine (test code = None Seen /hpf None Seen UBACTUF) UF REFLEXUF REFLEXComprehensive Metabolic Ouuab5916-17-56 15:17:00 Test Item Value Reference Range Interpretation [...] 69 U/L 46-116 N = ALP) Ethanol Eojcl6323-75-79 15:17:00 Test Item Value Reference Range Interpretation Comments Ethanol (test code < 3 mg/dL The pharm acological = ETOH) response to blo od alcohol levels mayvary from individual to i ndividual. The fatal giovanna ntrationhas been reported t o be >400mg/dL. Coronavirus PCR, COVID19 Hxoxi7008-63-69 15:17:00 Test Item Value Reference Range Interpretation Comments Coronavirus PCR, For use under Emergency COVID19 Rapid (test Use Authorization (EUA) code = SARSCOV2) only. Coronavirus PCR, Reference Range: COVID19 Rapid (test Negative code = DEDIIXU50.1) SARS-CoV-2 PCR Result: Negative by RT-PCR (test code = SARS-CoV-2 PCR Result:) COVID-19 Status: AsymptomaticComplete Blood Count Auto Bxqz2339-14-12 15:17:00 Test Item Value Reference Range Interpretation [...] (test code = NRBCP) 0 % Drug Screen,Xyrgz1744-92-87 15:17:00 Test Item Value Reference Range Interpretation [...] Urine (test code = UPROP) Thyroid Stimulating Rsckccm9126-58-53 02:36:01 Test Item Value Reference Range Interpretation Comments TSH (test code = See_Comment [Automated message] [id number]) The system [employer] generated this result transmitted ref erence range: 0.45 - 4 .70 mIU/L. The refe rence range was not u sed to interpret this result as normal/abnor mal. Lab Interpretation (test Normal code = 62261-4) [facility] with Vayrctpxhnfw1002-76-64 02:18:20 Test Item Value Reference Range Interpretation Comments WBC (test code = See_Comment H [Automated 7875-2) message] The system which generated this result transmit lázaro reference range : 4.20 - 10.70 10*3/?L. The reference range was not used to interpret this result as normal/abnormal . RBC (test code = See_Comment [Automated 058-8) message] The system which generated this result [...] RDW-SD (test code = 41.8 fL 38.5-51.6 71732-4) RDW-CV (test code = 13.5 % 12.1-15.4 788-0) PLT (test code = See_Comment H [Automated 777-3) message] The system which generated this result transmit lázaro reference range : 150 - 328 10*3/ ?L. The reference range was not u sed to interpret th is result as normal/abnormal . MPV (test code = 10.9 fL 9.8-13 62858-0) NRBC/100 WBC (test See_Comment [Automat ed code = 6762623070) message] The system which generated this result transmit lázaro reference range : 0.0 - 10.0 /100 WBCs. The reference range was not used to interpret this result as normal/abnormal . NRBC x10^3 (test code See_Comment [Auto mated = 2033135700) message] The system which generated this result transmit lázaro reference range : 10*3/?L. The reference range was not used to interpret this result as normal/abnormal . GRAN MAT (NEUT) % 89.5 % (test code = 770-8) IMM GRAN % (test code 0.60 % = 1688057102) LYMPH % (test code = 4.7 % 736-9) MONO % (test code = 4.9 % 5905-5) EOS % (test code = 0.0 % 713-8) BASO % (test code = 0.3 % 706-2) GRAN MAT x10^3(ANC) 15.88 10*3/uL 1.99-6.95 H (test code = 0675965673) IMM GRAN x10^3 (test 0.11 10*3/uL 0-0.06 H code = 8491686568) LYMPH x10^3 (test code 0.83 10*3/uL 1.09-3.23 L = 731-0) MONO x10^3 (test code 0.87 10*3/uL 0.36-1.02 = 742-7) EOS x10^3 (test code = 0.06-0.53 L 711-2) BASO x10^3 (test code 0.06 10*3/uL 0.01-0.09 = 704-7) Lab Interpretation Abnormal (test code = 76968-3) [facility] 02:11:53 SALICYLATE<10mg/L01/30/2022 9:11 PM [facility]ORATORY SERVICESTherapeutic Range: ? Analgesic and Antipyretic Use ? 20-100 mg/L ? ? Anti- Inflammatory Use ? 100-250 mg/L Toxic Range: ? Greater than 300 mg/[address]CH[facility] [address] [facility] HospitalEthanol (ETOH) Nbizw5690-75-62 02:11:48ALCOHOL<10mg/dL01/30/2022 9:11 PM [facility]ORATORY SERVICESToxic Greater than or equal to 80 mg/dL. NOTE: Whole blood values are approximately 10% to 15% lower than serum and plasma.[facility] HospitalAcetaminophen2022-08-06 02:07:57 Test Item Value Reference Range Interpretation Comments ACETAMINOP (test code = 10-30 L 9721146804) JAYLON (test code = JAYLON) Toxic: Greater than 200 ug/mL @ 4 hour post ingestion or greater than 50 ug/mL @ 12 hour post ingestion Lab Interpretation (test Abnormal code = 05449-6) [facility] HospitalComprehensive Metabolic Panel ([id number]) 2022-01-31 02:03:55 Test Item Value Reference Range Interpretation Comments NA (test code = 143 mmol/L 135-145 2972864271) K (test code = 4.7 mmol/L 3.5-5 5281869922) CL (test code = 108 mmol/L 98-108 0753061018) CO2 TOTAL (test code = 21 mmol/L 23-31 L 5266147142) AGAP (test code = 2-16 7444080165) BUN (test code = 16 mg/dL 7-23 3131960691) GLUCOSE (test code = 119 mg/dL 70-110 H 2530140517) CREATININE (test code = 1.65 mg/dL 0.6-1.25 H 2992477145) TOTAL BILI (test code = 0.6 mg/dL 0.1-1.6 8696405928) CALCIUM (test code = 10.4 mg/dL 8.6-10.6 1682217786) T PROTEIN (test code = 9.1 g/dL 6.3-8.2 H 8872524665) ALBUMIN (test code = 5.7 g/dL 3.5-5 H 0011615683) ALK PHOS (test code = 92 U/L 34-122 6529438470) ALTv (test code = 21 U/L 5-50 1742-6) AST(SGOT) (test code = 31 U/L 13-40 2016979274) eGFR (test code = mL/min/1.73m2 8575912378) JAYLON (test code = JAYLON) Association of [...] tests). Lab Interpretation Abnormal (test code = 39040-7) [facility] HospitalCreatine Ytftjv9297-25-56 02:03:55 Test Item Value Reference Range Interpretation Comments CK (test code = 3108239619) 531 U/L 33-194 H Lab Interpretation (test code = Abnormal 24255-0) [facility] HospitalCOMP. METABOLIC PANEL ([id number])2022-01-27 03:11:03 Test Item Value Reference Range Interpretation Comments NA (test code = 140 mmol/L 135-145 6480055735) K (test code = 4.7 mmol/L 3.5-5 9756836513) CL (test code = 105 mmol/L 98-108 4146169256) CO2 TOTAL (test code 28 mmol/L 23-31 = 0943269681) AGAP (test code = 2-16 5091570281) BUN (test code = 11 mg/dL 7-23 7841447323) GLUCOSE (test code = 93 mg/dL 70-110 9822112526) CREATININE (test code 1.14 mg/dL 0.6-1.25 = 4428572483) TOTAL BILI (test code 0.3 mg/dL 0.1-1.1 = 1759360343) CALCIUM (test code = 9.2 mg/dL 8.6-10.6 6017872574) T PROTEIN (test code 7.4 g/dL 6.3-8.2 = 1677150032) ALBUMIN (test code = 4.7 g/dL 3.5-5 1939377437) ALK PHOS (test code = 84 U/L 34-122 4969187921) ALTv (test code = 28 U/L 5-50 1742-6) AST(SGOT) (test code 31 U/L 13-40 = 8833925860) eGFR (test code = mL/min/1.73m2 8113933871) JAYLON (test code = JAYLON) Association of [...] or urine or abnormalities in imaging tests). [facility] HospitalCREATINE XSUMCT7994-07-35 03:11:03 Test Item Value Reference Range Interpretation Comments CK (test code = 8793052585) 453 U/L 33-194 H Lab Interpretation (test code = Abnormal 17508-3) [facility] HospitalLIPASE2022-08-02 03:11:03 Test Item Value Reference Range Interpretation Comments LIPASE (test code = 8979594394) 100 U/L 0-220 Lab Interpretation (test code = Normal 30679-2) [facility] WITH [id number] 02:54:01 Test Item Value Reference Range Interpretation Comments WBC (test code = See_Comment [Automated 4890-2) message] The sy stem which generated this result transmitted reference range : 4.20 - 10.70 10*3/?L. The reference range was not used to interpret this result as normal/abnormal . RBC (test code = See_Comment [Automated 403-8) message] The sy stem which generated this [...] RDW-SD (test code = 42.4 fL 38.5-51.6 37687-5) RDW-CV (test code = 13.1 % 12.1-15.4 788-0) PLT (test code = See_Comment H [Automated 777-3) message] The sy stem which generated this result transmitted reference range : 150 - 328 10*3/ ?L. The reference r daja was not used to interpret this result as normal/abnormal . MPV (test code = 10.9 fL 9.8-13 18274-0) NRBC/100 WBC (test See_Comment [Automat ed code = 5833675823) message] The system which generated this result transmitted reference range : 0.0 - 10.0 /100 WBCs. The refer ence range was not u sed to interpret th is result as normal/abnormal . NRBC x10^3 (test code See_Comment [Auto mated = 3100763642) message] The s ystem which generated this result transmitted reference range : 10*3/?L. The reference range was not used to interpret this result as normal/abnormal . GRAN MAT (NEUT) % 60.6 % (test code = 770-8) IMM GRAN % (test code 0.20 % = 0545052898) LYMPH % (test code = 31.9 % 736-9) MONO % (test code = 5.1 % 5905-5) EOS % (test code = 1.4 % 713-8) BASO % (test code = 0.8 % 706-2) GRAN MAT x10^3(ANC) 5.72 10*3/uL 1.99-6.95 (test code = 5269125971) IMM GRAN x10^3 (test 0-0.06 code = 9696167500) LYMPH x10^3 (test code 3.01 10*3/uL 1.09-3.23 = 731-0) MONO x10^3 (test code 0.48 10*3/uL 0.36-1.02 = 742-7) EOS x10^3 (test code = 0.13 10*3/uL 0.06-0.53 711-2) BASO x10^3 (test code 0.08 10*3/uL 0.01-0.09 = 704-7) Lab Interpretation Abnormal (test code = 68279-8) [facility] HospitalMYOGLOBIN NCKMB3285-56-06 03:50:24 Test Item Value Reference Range Interpretation Comments MYOGLOB S (test code 266.9 ng/mL See_Comment H [Autom ated = 2803862709) message] The system which generated this result transmitted reference range : <=121.0. The reference range was not used to interpret this result as normal/abnormal . JAYLON (test code = JAYLON) Biotin has been reported to cause a negative bias, interpret results relative to patient's use of biotin. Lab Interpretation Abnormal (test code = 95256-5) [facility] HospitalCREATINE [id number] 22:44:03 Test Item Value Reference Range Interpretation Comments CK (test code = 2753586977) 3562 U/L 33-194 H Slight hemolysis Lab Interpretation (test Abnormal code = 96279-1) [facility] HospitalACETAMINOPHEN2022-07-28 06:53:54 Test Item Value Reference Range Interpretation Comments ACETAMINOP (test code = 10-30 L 0180143440) JAYLON (test code = JAYLON) Toxic: Greater than 200 ug/mL @ 4 hour post ingestion or greater than 50 ug/mL @ 12 hour post ingestion Lab Interpretation (test Abnormal code = 71581-7) [facility] HospitalSALICYLATE2022-07-28 06:53:34 SALICYLATE<10mg/L01/22/2022 1:53 AM CDTUTMB LABORATORY SERVICESTherapeutic Range: ? Analgesic and Antipyretic Use ? 20-100 mg/L ? ? Anti- Inflammatory Use ? 100-250 mg/L Toxic Range: ? Greater than 300 mg/LUnCHI [address] [facility] HospitalETHANOL2022-07-28 06:53:29ALCOHOL<10mg/dL01/22/2022 1:53 AM CDTUTMB LABORATORY SERVICESToxic Greater than or equal to 80 mg/dL. NOTE: Whole blood values are approximately 10% to 15% lower than serum and plasma.[facility] HospitalCOM METABOLIC PANEL ([id number])2022-01-22 06:49:56 Test Item Value Reference Range Interpretation Comments NA (test code = 143 mmol/L 135-145 5611198847) K (test code = 4.4 mmol/L 3.5-5 6400162172) CL (test code = 103 mmol/L 98-108 3441046678) CO2 TOTAL (test code = 25 mmol/L 23-31 9662364374) AGAP (test code = 2-16 8793520244) BUN (test code = 16 mg/dL 7-23 6588779406) GLUCOSE (test code = 138 mg/dL 70-110 H 8491073516) CREATININE (test code = 1.23 mg/dL 0.6-1.25 6909612414) TOTAL BILI (test code = 0.5 mg/dL 0.1-1.4 2563641921) CALCIUM (test code = 10.0 mg/dL 8.6-10.6 1494172109) T PROTEIN (test code = 8.3 g/dL 6.3-8.2 H 7919285627) ALBUMIN (test code = 5.3 g/dL 3.5-5 H 6318082007) ALK PHOS (test code = 79 U/L 34-122 0910643704) ALTv (test code = 44 U/L 5-50 1742-6) AST(SGOT) (test code = 36 U/L 13-40 0529445192) eGFR (test code = mL/min/1.73m2 4754500725) JAYLON (test code = JAYLON) Association of [...] tests). Lab Interpretation Abnormal (test code = 45927-9) [facility] HospitalCREATINE [id number] 06:49:56 Test Item Value Reference Range Interpretation Comments CK (test code = 7405079146) 602 U/L 33-194 H Lab Interpretation (test code = Abnormal 51483-2) [facility] HospitalCBC WITH CJMX2431-65-33 06:33:58 Test Item Value Reference Range Interpretation Comments WBC (test code = See_Comment H [Automated 8890-2) message] The system which generated this result transmit lázaro reference range : 4.20 - 10.70 10*3/?L. The reference range was not used to interpret this result as normal/abnormal . RBC (test code = See_Comment [Automated 959-8) message] The system which generated this result [...] RDW-SD (test code = 42.5 fL 38.5-51.6 25696-9) RDW-CV (test code = 13.3 % 12.1-15.4 788-0) PLT (test code = See_Comment H [Automated 777-3) message] The system which generated this result transmit lázaro reference range : 150 - 328 10*3/ ?L. The reference range was not u sed to interpret th is result as normal/abnormal . MPV (test code = 10.9 fL 9.8-13 81140-1) NRBC/100 WBC (test See_Comment [Automat ed code = 7399953036) message] The system which generated this result transmit lázaro reference range : 0.0 - 10.0 /100 WBCs. The reference range was not used to interpret this result as normal/abnormal . NRBC x10^3 (test code See_Comment [Auto mated = 4482269051) message] The system which generated this result transmit lázaro reference range : 10*3/?L. The reference range was not used to interpret this result as normal/abnormal . GRAN MAT (NEUT) % 88.1 % (test code = 770-8) IMM GRAN % (test code 0.70 % = 3390716411) LYMPH % (test code = 6.3 % 736-9) MONO % (test code = 4.5 % 5905-5) EOS % (test code = 0.0 % 713-8) BASO % (test code = 0.4 % 706-2) GRAN MAT x10^3(ANC) 13.61 10*3/uL 1.99-6.95 H (test code = 3143106155) IMM GRAN x10^3 (test 0.11 10*3/uL 0-0.06 H code = 3257716994) LYMPH x10^3 (test code 0.98 10*3/uL 1.09-3.23 L = 731-0) MONO x10^3 (test code 0.70 10*3/uL 0.36-1.02 = 742-7) EOS x10^3 (test code = 0.06-0.53 L 711-2) BASO x10^3 (test code 0.06 10*3/uL 0.01-0.09 = 704-7) Lab Interpretation Abnormal (test code = 13993-0) [facility] HospitalCREATINE SLCERO1917-26-69 20:39:33 Test Item Value Reference Range Interpretation Comments CK (test code = 1371714105) 8585 U/L 33-194 H Lab Interpretation (test code = Abnormal 60740-5) [facility] HospitalCREATINE STZCZQ5611-96-88 02:54:18 Test Item Value Reference Range Interpretation Comments CK (test code = 1577830170) 02501 U/L 33-194 H Lab Interpretation (test code = Abnormal 13643-9) [facility] HospitalCREATINE UTTXMH9182-23-14 20:01:07 Test Item Value Reference Range Interpretation Comments CK (test code = 33-194 H 9945946660) JAYLON (test code = JAYLON) CK is approximately 19,916 U/L with extended dilution Lab Interpretation Abnormal (test code = 99482-3) [facility] METABOLIC PANEL (NA, K, CL, CO2, GLUCOSE, BUN, CREATININE, CA)2022-01-14 18:24:47 Test Item Value Reference Range Interpretation Comments NA (test code = 135 mmol/L 135-145 4519855651) K (test code = 4.0 mmol/L 3.5-5 7811854852) CL (test code = 101 mmol/L 98-108 8210211909) CO2 TOTAL (test code = 27 mmol/L 23-31 8461724348) AGAP (test code = 2-16 6700791375) BUN (test code = 28 mg/dL 7-23 H 0998381226) GLUCOSE (test code = 93 mg/dL 70-110 1738501498) CREATININE (test code = 1.19 mg/dL 0.6-1.25 3307291918) CALCIUM (test code = 8.3 mg/dL 8.6-10.6 L 9908369926) eGFR (test code = mL/min/1.73m2 1502459810) JAYLON (test code = JAYLON) Association of [...] tests). Lab Interpretation Abnormal (test code = 65750-7) [facility] HospitalCreatine Jihbux5797-72-77 08:14:23 Test Item Value Reference Range Interpretation Comments CK (test code = 33-194 H CK is approx imately 2955945606) 31,635 U/L with extended diluti on. Lab Interpretation Abnormal (test code = 48133-8) [facility] HospitalSalicylate2022-07-20 06:12:12 SALICYLATE<10mg/L01/14/2022 1:12 AM [facility]ORAT[facility] SERVICESTherapeutic Range: ? Analgesic and Antipyretic Use ? 20-100 mg/L ? ? Anti- Inflammatory Use ? 100-250 mg/L Toxic Range: ? Greater than 300 mg/LUnCHI [address] [facility] HospitalEthanol (ETOH) Swicw6271-00-15 06:10:57ALCOHOL<10mg/dL01/14/2022 1:10 AM [facility] SERVICESToxic Greater than or equal to 80 mg/dL. NOTE: Whole blood values are approximately 10% to 15% lower than serum and plasma.[facility] HospitalAcetaminophen2022-07-20 05:35:31 Test Item Value Reference Range Interpretation Comments ACETAMINOP (test code = 10-30 L 0485958979) JAYLON (test code = JAYLON) Toxic: Greater than 200 ug/mL @ 4 hour post ingestion or greater than 50 ug/mL @ 12 hour post ingestion Lab Interpretation (test Abnormal code = 24518-6) [facility] HospitalComprehensive Metabolic Panel ([id number]) 2022-01-14 05:24:54 Test Item Value Reference Range Interpretation Comments NA (test code = 130 mmol/L 135-145 L 3037964337) K (test code = 4.4 mmol/L 3.5-5 Slight 8852545270) hemolysis CL (test code = 92 mmol/L 98-108 L 1317249385) CO2 TOTAL (test code 22 mmol/L 23-31 L = 4237638122) AGAP (test code = 2-16 3552155104) BUN (test code = 46 mg/dL 7-23 H Slight 7160830302) hemolysis GLUCOSE (test code = 106 mg/dL 70-110 6824366664) CREATININE (test code 2.89 mg/dL 0.6-1.25 H = 1843562292) TOTAL BILI (test code 1.5 mg/dL 0.1-1.1 H = 7011800041) CALCIUM (test code = 9.9 mg/dL 8.6-10.6 3699463727) T PROTEIN (test code 8.9 g/dL 6.3-8.2 H = 3209577001) ALBUMIN (test code = 5.6 g/dL 3.5-5 H 8687726394) ALK PHOS (test code = 76 U/L 34-122 Slight 6708855125) hemolysis ALTv (test code = 116 U/L 5-50 H 1742-6) AST(SGOT) (test code 468 U/L 13-40 H Slight = 8287182378) hemolysis eGFR (test code = mL/min/1.73m2 9633416450) JAYLON (test code = JAYLON) Association of [...] tests). Lab Interpretation Abnormal (test code = 88153-1) [facility] with Zvpyvswcuxyt6731-43-38 05:05:30 Test Item Value Reference Range Interpretation Comments WBC (test code = See_Comment H [Automated 1567-2) message] The system which generated this result transmit lázaro reference range : 4.20 - 10.70 10*3/?L. The reference range was not used to interpret this result as normal/abnormal . RBC (test code = See_Comment [Automated 971-8) message] The system which generated this result [...] RDW-SD (test code = 41.7 fL 38.5-51.6 96283-2) RDW-CV (test code = 13.4 % 12.1-15.4 788-0) PLT (test code = See_Comment [Automated 777-3) message] The system which generated this result transmit lázaro reference range : 150 - 328 10*3/ ?L. The reference range was not u sed to interpret th is result as normal/abnormal . MPV (test code = 11.1 fL 9.8-13 84469-7) NRBC/100 WBC (test See_Comment [Automat ed code = 0250272358) message] The system which generated this result transmit lázaro reference range : 0.0 - 10.0 /100 WBCs. The reference range was not used to interpret this result as normal/abnormal . NRBC x10^3 (test code See_Comment [Auto mated = 3731330982) message] The system which generated this result transmit lázaro reference range : 10*3/?L. The reference range was not used to interpret this result as normal/abnormal . GRAN MAT (NEUT) % 66.5 % (test code = 770-8) IMM GRAN % (test code 0.30 % = 2144032482) LYMPH % (test code = 24.2 % 736-9) MONO % (test code = 7.5 % 5905-5) EOS % (test code = 0.9 % 713-8) BASO % (test code = 0.6 % 706-2) GRAN MAT x10^3(ANC) 10.46 10*3/uL 1.99-6.95 H (test code = 9235805875) IMM GRAN x10^3 (test 0.05 10*3/uL 0-0.06 code = 9204358176) LYMPH x10^3 (test code 3.81 10*3/uL 1.09-3.23 H = 731-0) MONO x10^3 (test code 1.18 10*3/uL 0.36-1.02 H = 742-7) EOS x10^3 (test code = 0.14 10*3/uL 0.06-0.53 711-2) BASO x10^3 (test code 0.10 10*3/uL 0.01-0.09 H = 704-7) Lab Interpretation Abnormal (test code = 67826-8) [facility] Test Item Value Reference Range Interpretation Comments ALCOHOL (test code = <10 mg/dL 9501768991) JAYLON (test code = Toxic Greater than or JAYLON) equal to 80 mg/dL. NOTE: Whole blood values are approximately 10% to 15% lower than serum and plasma. [facility] - COMPREHENSIVE DRUG [id number] 09:30:14 Test Item Value Reference Range Interpretation Comments CHERI S (test code = Negative Negative 4293441200) BENZO S (test code = Negative Negative 3994544104) TRICYCLIC (test code = Negative Negative 6007219534) JAYLON (test code = JAYLON) Serum Drug Screen Cutoff Ranges Barbiturates ? ? - 3 mcg/mLBenzodiazepines ?- 50 ng/mLTCA ?- 300 ng/mL Test developed and characteristics determined by [facility]. The results are to be used only for medical (i.e., treatment) purposes. Unconfirmed screening results must not be used for non-medical purposes (e.g., employment testing, legal testing). Lab Interpretation Normal (test code = 80632-0) [facility]OL[facility] PAN[facility] ([id number])2021-12-05 09:18:49 Test Item Value Reference Range Interpretation Comments NA (test code = 138 mmol/L 135-145 5938603775) K (test code = 4.1 mmol/L 3.5-5.0 1718476627) CL (test code = 102 mmol/L 98-108 6524434719) CO2 TOTAL (test code = 22 mmol/L 23-31 L 0834903834) AGAP (test code = 2-16 3717430266) BUN (test code = 8 mg/dL 7-23 1731613024) GLUCOSE (test code = 168 mg/dL 70-110 H 0614815963) CREATININE (test code = 0.96 mg/dL 0.60-1.25 5983230061) TOTAL BILI (test code = 0.5 mg/dL 0.1-1.0 4008834269) CALCIUM (test code = 9.9 mg/dL 8.6-10.6 6659219136) T PROTEIN (test code = 8.9 g/dL 6.3-8.2 H 2036677848) ALBUMIN (test code = 5.5 g/dL 3.5-5.0 H 3682104924) ALK PHOS (test code = 81 U/L 34-122 8220697682) ALTv (test code = 21 U/L 5-50 1742-6) AST(SGOT) (test code = 28 U/L 13-40 8341346534) eGFR (test code = mL/min/1.73m2 1503870071) JAYLON (test code = JAYLON) Association of [...] tests). Lab Interpretation Abnormal (test code = 94697-0) [facility]CREATINE [id number] 09:18:09 Test Item Value Reference Range Interpretation Comments CK (test code = 0991981792) 348 U/L 33-194 H Lab Interpretation (test code = Abnormal 59611-9) [facility] WITH [id number] 08:58:30 Test Item Value Reference Range Interpretation [...] RDW-SD (test code = 39.5 fL 38.5-51.6 91511-7) RDW-CV (test code = 13.0 % 12.1-15.4 788-0) PLT (test code = See_Comment [Automated 777-3) message] The system which generated this result transmit lázaro reference range : 150 - 328 10*3/ ?L. The reference range was not u sed to interpret th is result as normal/abnormal . MPV (test code = 10.7 fL 9.8-13.0 22297-5) NRBC/100 WBC (test See_Comment [Automat ed code = 9176793594) message] The system which generated this result transmit lázaro reference range : 0.0 - 10.0 /100 WBCs. The reference range was not used to interpret this result as normal/abnormal . NRBC x10^3 (test code <0.01 See_Comment [Auto mated = 0252287750) message] The system which generated this result transmit lázaro reference range : 10*3/?L. The reference range was not used to interpret this result as normal/abnormal . GRAN MAT (NEUT) % 84.9 % (test code = 770-8) IMM GRAN % (test code 0.40 % = 2075856232) LYMPH % (test code = 9.2 % 736-9) MONO % (test code = 5.2 % 5905-5) EOS % (test code = 0.0 % 713-8) BASO % (test code = 0.3 % 706-2) GRAN MAT x10^3(ANC) 11.66 10*3/uL 1.99-6.95 H (test code = 0770508946) IMM GRAN x10^3 (test 0.06 10*3/uL 0.00-0.06 code = 5570814295) LYMPH x10^3 (test code 1.26 10*3/uL 1.09-3.23 = 731-0) MONO x10^3 (test code 0.72 10*3/uL 0.36-1.02 = 742-7) EOS x10^3 (test code = <0.03 0.06-0.53 L 711-2) BASO x10^3 (test code 0.04 10*3/uL 0.01-0.09 = 704-7) Lab Interpretation Abnormal (test code = 28331-5) [facility]CREAT[facility] [id number] 05:20:33 Test Item Value Reference Range Interpretation Comments CK (test code = 8353820146) 1561 U/L 33-194 H Lab Interpretation (test code = Abnormal 50286-9) [facility] [id number] 04:27:03 Test Item Value Reference Range Interpretation Comments CK (test code = 7255660422) 3129 U/L 33-194 H Lab Interpretation (test code = Abnormal 70063-4) [facility]COM[facility] PAN[facility] (93239)2021-11-22 04:11:07 Test Item Value Reference Range Interpretation Comments NA (test code = 139 mmol/L 135-145 6237185576) K (test code = 4.3 mmol/L 3.5-5.0 9376629450) CL (test code = 106 mmol/L 98-108 7229694186) CO2 TOTAL (test code = 25 mmol/L 23-31 9256374441) AGAP (test code = 2-16 4176338621) BUN (test code = 19 mg/dL 7-23 6055783946) GLUCOSE (test code = 119 mg/dL 70-110 H 2139879263) CREATININE (test code = 1.23 mg/dL 0.60-1.25 6206560212) TOTAL BILI (test code = 0.7 mg/dL 0.1-1.5 0604479852) CALCIUM (test code = 9.8 mg/dL 8.6-10.6 4519755116) T PROTEIN (test code = 8.3 g/dL 6.3-8.2 H 3078144685) ALBUMIN (test code = 5.3 g/dL 3.5-5.0 H 2065200123) ALK PHOS (test code = 77 U/L 34-122 4082155233) ALTv (test code = 38 U/L 5-50 1742-6) AST(SGOT) (test code = 63 U/L 13-40 H 3872279816) eGFR (test code = mL/min/1.73m2 7417080820) JAYLON (test code = JAYLON) Association of [...] tests). Lab Interpretation Abnormal (test code = 30630-8) [facility] WITH [id number] 04:02:45 Test Item Value Reference Range Interpretation [...] RDW-SD (test code = 41.1 fL 38.5-51.6 82133-7) RDW-CV (test code = 13.0 % 12.1-15.4 788-0) PLT (test code = See_Comment H [Automated 777-3) message] The sy stem which generated this result transmitted reference range : 150 - 328 10*3/ ?L. The reference r daja was not used to interpret this result as normal/abnormal . MPV (test code = 11.1 fL 9.8-13.0 90412-1) IPF % (test code = 6.4 % 1.2-10.7 Platelet count 2478299291) measured by fluorescence method. NRBC/100 WBC (test See_Comment [Automat ed code = 2189010882) message] The system which generated this result transmitted reference range : 0.0 - 10.0 /100 WBCs. The refer ence range was not u sed to interpret th is result as normal/abnormal . NRBC x10^3 (test code <0.01 See_Comment [Auto mated = 0366764896) message] The s ystem which generated this result transmitted reference range : 10*3/?L. The reference range was not used to interpret this result as normal/abnormal . GRAN MAT (NEUT) % 75.2 % (test code = 770-8) IMM GRAN % (test code 0.60 % = 8176336995) LYMPH % (test code = 11.8 % 736-9) MONO % (test code = 11.7 % 5905-5) EOS % (test code = 0.2 % 713-8) BASO % (test code = 0.5 % 706-2) GRAN MAT x10^3(ANC) 10.36 10*3/uL 1.99-6.95 H (test code = 7125418314) IMM GRAN x10^3 (test 0.08 10*3/uL 0.00-0.06 H code = 2679174491) LYMPH x10^3 (test 1.63 10*3/uL 1.09-3.23 code = 731-0) MONO x10^3 (test code 1.62 10*3/uL 0.36-1.02 H = 742-7) EOS x10^3 (test code 0.03 10*3/uL 0.06-0.53 L = 711-2) BASO x10^3 (test code 0.07 10*3/uL 0.01-0.09 = 704-7) REACT LYMPHS (test Rare code = 9477284097) Lab Interpretation Abnormal (test code = 00717-4) [facility] 03:45:36 Test Item Value Reference Range Interpretation Comments ALCOHOL (test code = <10 mg/dL 4100878907) JAYLON (test code = Toxic Greater than or JAYLON) equal to 80 mg/dL. NOTE: Whole blood values are approximately 10% to 15% lower than serum and plasma. [facility] HospitalACETAMINOPHEN2022-05-28 03:44:16 Test Item Value Reference Range Interpretation Comments ACETAMINOP (test code = <10.0 10.0-30.0 L 9997200201) JAYLON (test code = JAYLON) Toxic: Greater than 200 ug/mL @ 4 hour post ingestion or greater than 50 ug/mL @ 12 hour post ingestion Lab Interpretation (test Abnormal code = 18047-7) [facility] HospitalSALICYLATE2022-05-28 03:43:50 Test Item Value Reference Range Interpretation Comments SALICYLATE (test code <10 mg/L = 4641527897) JAYLON (test code = JAYLON) Therapeutic Range: ? Analgesic and Antipyretic Use ? 20-100 mg/L ? ? Anti-Inflammatory Use ? 100-250 mg/L Toxic Range: ? Greater than 300 mg/L [facility] HospitalXR FINGERS 2 VW [id number] 18:42:56 No evidence of fracture or traumatic [...] about the PIP joint.RL: [id number] of report [facility] 3 [id number] 18:38:591. No fracture or malalignment. 2. Minor spondylosis in the lower cervical spine. RL: [id number] End of Report EXAM: XR CERVICAL SPINE 3 VW ? ORDERING PHYSICIAN: Rosa HERNANDEZYEU HISTORY: Neck pain. Injury. COMPARISON: none FINDINGS:Three views of the cervical spine. Visualization is from the skull basethrough the C7 vertebral body. There is normal vertebral body height andalignment. ?No acute fracture is identified. ?Minimal loss of disc spa ceheight is present at C6-7. Small anterior osteophytes are present from K3vioejjh C7. There is straightening of the normal [...] C6-7. Small anterior osteophytes are present from C6qgysofq C7. There is straightening of the normal cervical lordosis, likelyrelated to presence of cervical collar. Prevertebral soft tissues arenormal. The visualized lung apices are clear.IMPRESSION1. No fracture or malalignment. 2. Minor spondylosis in the lower cervical spine.RL: [id number] of Report [facility] [id number] 15:01:00 Test Item Value Reference Range Interpretation [...] Dose Date: 06/28/00 Dose Time: HEPATIC FUNCTION [id number] 15:01:00 Test Item Value Reference Range Interpretation [...] ALKP) Last Dose Date: 06/28/00 Dose Time: [id number] 15:01:00 Test Item Value Reference Range Interpretation Comments ACETAMINOPHEN (test code = ACET) < 2.0 mcG/ML 10.0-30.0 L Last Dose Date: 06/28/00 Dose Time: [id number] 15:01:00 Test Item Value Reference Range Interpretation Comments ALCOHOL (test code = ALC) < 3 MG/DL 0-10 N Last Dose Date: 06/28/00 Dose Time: [id number] 07:32:00 Test Item Value Reference Range Interpretation Comments SALICYLATE (test code = ISA) < 1.7 MG/DL 2.8-20.0 THER L BASIC METABOLIC [id number] 07:24:00 Test Item Value Reference Range Interpretation [...] Dose Date: 06/28/00 Dose Time: HEPATIC FUNCTION [id number] 07:24:00 Test Item Value Reference Range Interpretation [...] ALKP) Last Dose Date: 06/28/00 Dose Time: [id number] 07:24:00 Test Item Value Reference Range Interpretation Comments ACETAMINOPHEN (test code = ACET) mcG/ML 10.0-30.0 Last Dose Date: 06/28/00 Dose Time: [id number] 07:24:00 Test Item Value Reference Range Interpretation [...] for culture: Suprapubic PainDRUGS OF ABUSE SCREEN [id number] 06:55:00 Test Item Value Reference Range Interpretation [...] culture: Suprapubic PainUA RFLX MICR CULT IF [id number] 06:44:00 Test Item Value Reference Range Interpretation [...] for culture: Suprapubic PainDRUGS OF ABUSE SCREEN [id number] 06:44:00 Test Item Value Reference Range Interpretation [...] culture: Suprapubic PainUA RFLX MICR CULT IF [id number] 06:43:00 Test Item Value Reference Range Interpretation [...] for culture: Suprapubic PainDRUGS OF ABUSE SCREEN [id number] 06:43:00 Test Item Value Reference Range Interpretation [...] CLEAN CATCHIndication for culture: Suprapubic PainCBC W/AUTO [id number] 06:40:00 Test Item Value Reference Range Interpretation [...] = NO DIFF/SCN CRITERIA MDIFF) CBC W/AUTO [id number] 21:39:00 Test Item Value Reference Range Interpretation [...] CONSISTA NT WITH AUTO DIFFERENTIAL. CBC W/AUTO [id number] 20:15:00 Test Item Value Reference Range Interpretation [...] code = DIFF/SCN CRITERIA MDIFF) COMPREHENSIVE METABOLIC [id number] 20:01:00 Test Item Value Reference Range Interpretation [...] 50-136 N (test code = ALKP) CREATINE [id number] 06:52:00 Test Item Value Reference Range Interpretation Comments CK (test code = 5209468488) 514 U/L 33-194 H Lab Interpretation (test code = Abnormal 43155-1) [facility] HospitalDR[facility] PANEL 2 [id number] 05:55:00 Test Item Value Reference Range Interpretation Comments AMPHET (test code = Presumptive Positive Negative A 2914088048) CHERI U (test code = Negative Negative 7945147839) BENZO U (test code = Negative Negative 1552681651) Cocaine Metabolite (test Negative Negative code = 2498682692) METHADONE (test code = Negative Negative 4349099780) OPIATES (test code = Negative Negative 6659347447) PCP (test code = Negative Negative 0733434991) THC (test code = Presumptive Positive Negative A 1937285797) JAYLON (test code = JAYLON) Urine Drug [...] testing). Lab Interpretation (test Abnormal code = 03379-2) [facility] HospitalUrinalysis2020-02-24 05:07:00 Test Item Value Reference Range Interpretation Comments APPEARANCE (test code = Clear Clear 7250609203) COLOR (test code = Yellow Yellow 8442507113) PH (test code = 4.8-8.0 4543761761) SP GRAVITY (test code = 1.003-1.030 6443359155) GLU U QUAL (test code = Normal Normal 8568336227) BLOOD (test code = Negative Negative 2628000324) KETONES (test code = Negative Negative 9045348556) PROTEIN (test code = Negative Negative 2887-8) UROBILIN (test code = Normal Normal 7323879758) BILIRUBIN (test code = Negative Negative 1192502683) NITRITE (test code = Negative Negative 9401560193) LEUK ANDREW (test code = Negative Negative 4568230713) RBC/HPF (test code = <1 See_Comment [Autom ated message] 9923822937) The system [employer] generated this result transmitted ref erence range: 0 - 3 HP F. The reference range was not used to int erpret this result as normal/abnormal . WBC/HPF (test code = <1 See_Comment [Autom ated message] 6509176674) The system [employer] generated this result transmitted ref erence range: 0 - 5 HP F. The reference range was not used to int erpret this result as normal/abnormal . BACTERIA (test code = Negative Negative 2797462973) SQ EPITH (test code = <1 See_Comment [Auto mated message] 2787441401) The system [employer] generated this result transmitted ref erence range: <=2 HPF. The reference range was not used to int erpret this result as normal/abnormal . Lab Interpretation (test Normal code = 85340-0) [facility] HospitalACETAMINOPHEN2020-02-24 03:53:00 Test Item Value Reference Range Interpretation Comments ACETAMINOP (test code = <10.0 10-30 L 5966385289) JAYLON (test code = JAYLON) Toxic: Greater than 200 ug/mL @ 4 hour post ingestion or greater than 50 ug/mL @ 12 hour post ingestion Lab Interpretation (test Abnormal code = 81036-6) [facility] HospitalSALICYLATE2020-02-24 03:53:00 Test Item Value Reference Range Interpretation Comments SALICYLATE (test code <10 mg/L = 0896164147) JAYLON (test code = JAYLON) Therapeutic Range: ? Analgesic and Antipyretic Use ? 20-100 mg/L ? ? Anti-Inflammatory Use ? 100-250 mg/L Toxic Range: ? Greater than 300 mg/L [facility] (NA, K, CL, CO2, GLUCOSE, BUN, CREATININE, CA)2019-08-21 03:52:00 Test Item Value Reference Range Interpretation Comments NA (test code = 138 mmol/L 135-145 0205857495) K (test code = 3.9 mmol/L 3.5-5 9685741927) CL (test code = 103 mmol/L 98-108 0167784853) CO2 TOTAL (test code = 26 mmol/L 23-31 7069911682) AGAP (test code = 2-16 2245184260) BUN (test code = 14 mg/dL 7-23 3835640709) GLUCOSE (test code = 106 mg/dL 70-110 6247161522) CREATININE (test code 0.83 mg/dL 0.6-1.25 = 7938090258) CALCIUM (test code = 9.2 mg/dL 8.6-10.6 2081514241) eGFR Calculation mL/min/1.73m2 (Non-) (test code = 6827872029) eGFR Calculation mL/min/1.73m2 () (test code = 6066152911) JAYLON (test code = JAYLON) Association of [...] or urine or abnormalities in imaging tests). [facility] HospitalHepatic Function Panel (ALB, T.PRO, BILI T, BU/BC, ALT, AST, ALK PHOS)2019-08-21 03:52:00 Test Item Value Reference Range Interpretation Comments TOTAL BILI (test code = 7060738172) 0.2 mg/dL 0.1-1.1 BILI UNCON (test code = 3206320651) 0.2 mg/dL 0.1-1.1 BILI CONJ (test code = 8964695184) 0.0 mg/dL 0-0.3 T PROTEIN (test code = 3499578793) 7.0 g/dL 6.3-8.2 ALBUMIN (test code = 7318935620) 4.4 g/dL 3.5-5 ALK PHOS (test code = 4125932703) 100 U/L 34-122 ALTv (test code = 1742-6) 18 U/L 5-50 AST(SGOT) (test code = 0813891439) 29 U/L 13-40 Lab Interpretation (test code = Normal 90286-0) [facility] HospitalEthanol [id number] 03:52:00 Test Item Value Reference Range Interpretation Comments ALCOHOL (test code = 24 mg/dL 0552227893) JAYLON (test code = Toxic Greater than or JAYLON) equal to 80 mg/dL. NOTE: Whole blood values are approximately 10% to 15% lower than serum and plasma. [facility] WITH [id number] 03:40:00 Test Item Value Reference Range Interpretation [...] RDW-SD (test code = 42.3 fL 38.5-51.6 27033-8) RDW-CV (test code = 12.8 % 12.1-15.4 788-0) PLT (test code = See_Comment [Automated 777-3) message] The sy stem which generated this result transmitted reference range : 150 - 328 10*3/ ?L. The reference r daja was not used to interpret this result as normal/abnormal . MPV (test code = 10.5 fL 9.8-13 65460-9) NRBC/100 WBC (test See_Comment [Automat ed code = 5886304575) message] The system which generated this result transmitted reference range : 0.0 - 10.0 /100 WBCs. The refer ence range was not u sed to interpret th is result as normal/abnormal . NRBC x10^3 (test code <0.01 See_Comment [Auto mated = 3362982277) message] The s ystem which generated this result transmitted reference range : 10*3/?L. The reference range was not used to interpret this result as normal/abnormal . GRAN MAT (NEUT) % 71.2 % (test code = 770-8) IMM GRAN % (test code 0.30 % = 0260745338) LYMPH % (test code = 21.4 % 736-9) MONO % (test code = 5.3 % 5905-5) EOS % (test code = 1.2 % 713-8) BASO % (test code = 0.6 % 706-2) GRAN MAT x10^3(ANC) 9.03 10*3/uL 1.99-6.95 H (test code = 8580870569) IMM GRAN x10^3 (test 0.04 10*3/uL 0-0.06 code = 2942950989) LYMPH x10^3 (test code 2.71 10*3/uL 1.09-3.23 = 731-0) MONO x10^3 (test code 0.67 10*3/uL 0.36-1.02 = 742-7) EOS x10^3 (test code = 0.15 10*3/uL 0.06-0.53 711-2) BASO x10^3 (test code 0.08 10*3/uL 0.01-0.09 = 704-7) Lab Interpretation Abnormal (test code = 42936-9) [facility]XR [facility] 3+ VW [id number] 08:29:53 No acute osseous abnormality of the right hand. RL: 460 AFC: [id number] Ordering physician: ANNA MARIE DIAZ INDICATION: Acute injury to the right and COMPARISON: None FINDINGS: 3 views of the right hand. No acute fracture or dislocation isappreciated. There is no radiopaque foreign body. Kymb, Radiant Results Inft User - 03/03/2019 3:31 AM CDTOrdering physician: ANNA MARIE DIAZINDICATION: Acute injury tothe right andCOMPARISON: NoneFINDINGS: 3 views of the right hand. No acute fracture or dislocation isappreciated. There is no radiopaque foreign body.IMPRESSIONNo acute osseous abnormality of the righthand.RL: 460AFC: 27827 [facility] HospitalValproic Acid Ekslw8011-24-06 08:10:30 Test Item Value Reference Range Interpretation Comments Valproic Acid Level (test code 94.1 ug/mL(g) 50.0-100.0 = Valproic Acid Level) Hemoglobin [id number] 09:40:02 Test Item Value Reference Range Interpretation Comments Hemoglobin A1c (test code 5.0 % 4.8-5.9 No n Diabetic = Hemoglobin A1c) 4.8-5.9%Di abetic <7.0% Valproic Acid Qltez1992-10-03 08:30:39 Test Item Value Reference Range Interpretation Comments Valproic Acid Level (test code 120.3 ug/mL(g) 50.0-100.0 H = Valproic Acid Level) RPR Oussuajkejc5575-69-63 06:07:29 Test Item Value Reference Range Interpretation Comments RPR Qual (test code = RPR Qual) Non-Reactive Non-Reactive Reactive Control (test code = Reactive Reactive Control) Weak Reactive Control (test Weak Reactive code = Weak Reactive Control) Non-Reactive Control (test code Non-Reactive = Non-Reactive Control) Lot # (test code = Lot #) [id number] N Expiration Dt (test code = 10.31.2020 N Expiration Dt) Thyroid Stimulating [id number] 02:34:05 Test Item Value Reference Range Interpretation Comments TSH (test code = TSH) 1.290 mIU/mL 0.270-4.200 Lipid Iigyy4453-56-72 02:16:21 Test Item Value Reference Range Interpretation Comments Cholesterol Total 127 mg/dL 0-200 RISK OF HE ART (test code = DISEASEPublishe d by Cholesterol Total) [employer] Dottie lyte Optimal Borderl ine [...] LDL/HDL Ratio=L DL Calc/HDL Chol Comprehensive Metabolic Qfbch5137-26-64 12:18:35 Test Item Value Reference Range Interpretation [...] A/G 2.0 ratio N Ratio) Comprehensive Metabolic [id number] 12:18:35 Test Item Value Reference Range Interpretation [...] the National Kidney Foundation, http://nkdep.ni h.gov Alcohol Xkzne4300-55-15 12:18:35 Test Item Value Reference Range Interpretation Comments Ethanol Level (test <0.00 g/dL 0.00-0.01 Intoxica lázaro 0.080 g/dL code = Ethanol or more Level) Ethanol Inst (test <0 N code = Ethanol Inst) Comprehensive Metabolic [id number] 12:18:35 Test Item Value Reference Range Interpretation [...] ag e have not been validated by [facility] MDRD study and should be interpreted [...] ag e have not been validated by [facility] MDRD study and should be interpreted wit h caution. eGFR R esult Interpretation: eGFR > or = 60 is in the Normal RangeeGF R < 60 may mean kid bekah diseaseeGFR < 1 5 may mean kidney failure Rang es recommended by the National Kidney Foundation, http://nkdep.ni h.gov Drugs of Abuse Urine 03444-61-07 11:40:37 Test Item Value Reference Range Interpretation [...] Cannabinoid Screen Ur) Urinalysis with Culture, if kexlbrhzt0762-22-92 11:17:21 Test Item Value Reference Range Interpretation [...] Micro Ind?) rule GL_SJM_UA_MICRO _IN D Automated Bixmbcnokbum2001-61-88 11:14:20 Test Item Value Reference Range Interpretation Comments Neutro Auto (test code = Neutro 73.7 % 36.0-70.0 H Auto) Lymph Auto (test code = Lymph Auto) 18.8 % 12.0-44.0 Mclean Auto (test code = Mclean Auto) 5.0 % 0.0-11.0 Eos, Auto (test code = Eos, Auto) 1.4 % 0.0-7.0 Basophil Auto (test code = Basophil 0.7 % 0.0-2.0 Auto) Neutro Absolute (test code = Neutro 6.3 x10 1.6-7.4 Absolute) Lymph Absolute (test code = Lymph 1.61 x10 .50-4.60 Absolute) Mclean Absolute (test code = Mclean .43 x10 .00-1.20 Absolute) Eos Absolute (test code = Eos 0.12 x10 0.00-0.74 Absolute) Baso Absolute (test code = Baso 0.06 x10 0.00-0.21 Absolute) IG Oivmx8456-56-18 11:14:20 Test Item Value Reference Range Interpretation Comments IG (test code = IG) 0.4 % 0.0-5.0 IG Abs (test code = IG Abs) 0 x10 N Complete Blood Count with Jngpiyygpbmo9517-69-75 11:14:19 Test Item Value Reference Range Interpretation [...] IPF) 0 % N XR chest 1V [facility] [address] [place] [address] Patient Name: Carlos Wu Medical Record#: [id number] Address: [address] City/State/Zip: [place] [address]: Anabel bunch MD Insurance: Self Pay /Age/Sex: 1990 31/M Admit/Reg Date: 02/07/[address]: CHANTAL Christianson Location: [facility]/ PCP: PcpMd PALMIRA Cole Date of Service: 02/07/22 Order (s): XR chest 1V CPTCode: 89132 Report Number: [id number] Reason for Exam: tachy Location: H3 CHEST [...] CDT Dictated By: Rina Navarro MD 02/07/22 0151 Signed By: Rina Navarro MD 02/07/22 0204 TD/TT: 151 Tech: GPS02 cc: ISLMD; PCPNO* CHANTAL Christianson; Pcp-Md PALMIRA MainEKG ED Electrocardiogram [address] [address] Patient Name: Carlos Wu Medical Record#: [id number] Address: [address] [place] [address] City/State/Zip: [place] [address]: Anabel bunch MD Insurance: Self Pay /Age/Sex: 1990 31/M Admit/Reg Date: 02/07/[address]: CHANTAL Christianson Location: [facility]/ PCP: PcpMd PALMIRA Cole Date of Service: 02/07/22 Order (s): EKG ED Electrocardiogram CPT Code: 80889 Report Number: [id number] Reason for Exam: Chest Pain Sinus tachycardia LAE,consider biatrial enlargement Right axis deviation Artifact in lead(s) I,II,III,aVR,aVL,aVF,V1,V2,V3,V4,V5 Summary: Abnormal ECG Dictated By: Stephani Lambert MD 02/07/22 0015 Signed By: Stephani Lambert MD 02/08/22 1447 TD/TT: 02/07/225 Tech: SVCCPACS cc: TIAGO; PCPNO* MD Jayme Rubio, PAC; Pcp-[place],Md CHAVIS
[2022-04-12 02:06] LABS: Absolute Lymphocytes (CBC) 1.8 K/uL (0.7-4.9); Hematocrit 44.9 % (39.6-49.0); Lymphocytes % 21.5 % (15.3-44.8); MCV 86.3 fL (80-100); MPV 9.3 fL (7.6-11.3); RBC Red Blood Cell Count 5.21 M/uL (4.33-5.43)
[2022-04-12 02:11] LABS: Protime INR 0.99
[2022-04-12] MEDS ORDERED: RISPERIDONE 1 MG TABLET ONE (02:33)
[2022-04-12 02:35] LABS: ALT/SGPT 40 U/L (12-78); AST/SGOT 42 U/L (15-37); Albumin 4.6 g/dL (3.4-5.0); Alkaline Phosphatase 87 U/L (45-117); BUN Blood Urea Nitrogen 18 mg/dL (7-18); Bicarbonate 29 mmol/L (21-32); Bilirubin Direct 0.2 mg/dL (0-0.2); Bilirubin Total 0.6 mg/dL (0.2-1.0); Glomerular Filtration Rate 98 ml/min (=/>90); Glucose Level 123 mg/dL (74-106); Potassium 3.6 mmol/L (3.5-5.1); Protein, Total 7.9 g/dL (6.4-8.2); Sodium Level 139 mmol/L (136-145)
[2022-04-12 02:49] LABS: Specific Gravity > 1.030 (1.005-1.030); Urine Bilirubin NEGATIVE (Negative); Urine Blood Negative (Negative); Urine Clarity Clear (Clear); Urine Color Yellow (Yellow); Urine Glucose NEGATIVE (Negative); Urine Mucus Slight /HPF (None Seen); Urine Protein TRACE (Negative); Urine RBC <5 /HPF (None Seen); Urine Urobilinogen Normal (Normal); Urine pH 5.5 (5.0-7.0)
[2022-04-12 03:07] LABS: Barbiturates NEGATIVE (NEGATIVE); Benzodiazepines NEGATIVE (NEGATIVE); Cocaine POSITIVE (NEGATIVE); METHAMPHETAM POSITIVE (NEGATIVE); Methadone NEGATIVE (NEGATIVE); Opiates NEGATIVE (NEGATIVE); Phencyclidine NEGATIVE (NEGATIVE); THC Cannibis NEGATIVE (NEGATIVE)
--- NOTE | 2022-04-12 03:12 | ER ---
Nurse's Notes [facility] Name: Carlos Walker Age: 31 yrs Sex: Male : 1990 Arrival Date: 04/11/2022 Time: 19:38 Bed 8 Private MD: Diagnosis: Visual hallucinations;Hallucinations, unspecified;Bipolar disorder, unspecified;Adverse effect of amphetamines;Cocaine abuse Presentation: 04/11 19:38 Chief complaint: EMS states: Hallucinating being chased and eaten by snakes, last used hb meth 2 hours ago. Coronavirus screen: At this time, the client does not indicate any symptoms associated with coronavirus-19. Ebola Screen: No symptoms or risks identified at this time. Risk Assessment: Do you want to hurt yourself or someone else? Patient reports no desire to harm self or others. Onset of symptoms was April 11, 2022. 19:38 [facility]38 Acuity: EDD 2 hb 19:39 Initial Sepsis Screen: Does the patient meet any 2 criteria? No. Patient's initial hb sepsis screen is negative. Does the patient have a suspected source of infection? No. Patient's initial sepsis screen is negative. Triage Assessment: 19:45 General: Appears in no apparent distress. Behavior is calm, cooperative. Pain: Denies hb pain. Neuro: Level of Consciousness is awake, alert, obeys commands, Oriented to person, place, time, situation. Cardiovascular: Patient's skin is warm and dry. Respiratory: Respiratory effort is even, unlabored, Respiratory pattern is regular, symmetrical. Historical: - Allergies: 19:40 Abilify; hb 19:40 Promethazine; hb - PMHx: 19:40 Bipolar disorder; Schizophrenia; hb - Immunization history:: Adult Immunizations unknown. - Social history:: Smoking status: Patient reports the use of cigarette tobacco products, smokes one-half pack cigarettes per day, Patient uses street drugs, Methamphetamine (Meth). Screenin:30 Abuse screen: Denies threats or abuse. Denies injuries from another. Nutritional hb screening: No deficits noted. Tuberculosis screening: No symptoms or risk factors identified. Fall Risk None identified. Assessment: 23:00 Reassessment: Pt alert and upright in chair, watching television in no apparent hb distress. 04/12 01:00 General: Appears in no apparent distress. comfortable, Behavior is calm, cooperative, jb4 appropriate for age, Pt states " I am hearing and voices and seeing snakes. Last time I was here I was suicidal too.". Asked pt if he is currently having suicidal ideations pt replied. " I told that to the EMS just so I could see a Dr. and get stabilized. I am not stabilized and I have no where to go so I say I am suicidal to see a Dr. and go to the hospital.". Pain: Denies pain. Neuro: Level of Consciousness is awake, alert, obeys commands, Oriented to person, place, time, situation. Cardiovascular: Patient's skin is warm and dry. Respiratory: Airway is patent Respiratory effort is even, unlabored, Respiratory pattern is regular, symmetrical. GI: No signs and/or symptoms were reported involving the gastrointestinal system. : No signs and/or symptoms were reported regarding the genitourinary system. EENT: No signs and/or symptoms were reported regarding the EENT system. Derm: Skin is intact, Skin is pink, warm \\T\\ dry. Musculoskeletal: Circulation, motion, and sensation intact. Range of motion: intact in all extremities. 03:04 Reassessment: Patient appears in no apparent distress at this time. Patient and/or jb4 family updated on plan of care and expected duration. Pain level reassessed. Patient is alert, oriented x 3, equal unlabored respirations, skin warm/dry/pink. Given a warm blanket per request. 06:32 Reassessment: Pt is resting in bed with eyes closed, respirations are even and tw5 unlabored with no s/s of pain or distress noted. 07:00 Reassessment: Patient is alert, oriented x 3, equal unlabored respirations, skin mb8 warm/dry/pink. Patient woken up to assess, reports SI and wants to get help. 08:00 Reassessment: Patient and/or family updated on plan of care and expected duration. Pain mb8 level reassessed. Patient sleeping at this time. Equal chest rise and fall. 09:00 Reassessment: Patient and/or family updated on plan of care and expected duration. Pain mb8 level reassessed. Patient walking around in room. 10:00 Reassessment: No changes from previously documented assessment. Patient and/or family mb8 updated on plan of care and expected duration. Pain level reassessed. Patient resting in bed. Psych: 07:55 Ola Suicide Severity Screening: In the past month, have you wished you were mb8 or wished you could go to sleep and not wake up? Patient responds "yes." "In the past month, have you actually had any thoughts of killing yourself?" Patient responds "yes." "In your lifetime, have you ever done anything, started to do anything, or prepared to do anything to end your life?" Patient responds "yes.". Subjective: Patient's mood is hopeless, Hallucinations are auditory, visual, Having thoughts of suicide. Denies suicidal plan. Objective: Patient is cooperative, Speech is slow, Affect is flat. Interventions: Removed personal items and placed in bag. Patient placed in hospital gown. Searched person for dangerous items. Urine collected and sent for urine drug test. done by previous shift. Safety Checks: Personal items have been removed. Door is open. No visitors are present at this time. 08:00 Patient uses cocaine, Patient uses methamphetamines. mb8 Vital Signs: 04/11 19:38 BP 172 / 103; Pulse 120; Resp 20; Temp 97.8; Pulse Ox 100% on R/A; Weight 83.91 kg; hb Height 5 ft. 8 in. (172.72 cm); Pain 0/10; 04/12 08:10 BP 119 / 82; Pulse 65; Resp 14; Temp 97.0; Pulse Ox 100% ; Pain 0/10; mb8 04/11 19:38 Body Mass Index 28.13 (83.91 kg, 172.72 cm) hb ED Course: 04/11 19:38 Patient arrived in ED. hb 19:40 Triage completed. hb 19:40 Arm band placed on. hb 19:46 Batsheva Gallagher FNP-C is [facility]. kb 19:46 Elmer Damico DO is Attending Physician. kb 04/12 01:42 Mukund Bonner, YOHANNES is Primary Nurse. jb4 01:45 Initial lab(s) drawn, by me, sent to lab. Inserted saline lock: 18 gauge in right jb4 antecubital area, using aseptic technique. Blood collected. 02:10 Acetaminophen Sent. jb4 02:10 Basic Metabolic Panel Sent. jb4 02:11 Salicylate Sent. jb4 02:11 Ptt, Activated Sent. jb4 02:11 Hepatic Function Sent. jb4 02:11 ETOH Level Sent. jb4 02:11 PT-INR Sent. jb4 07:00 Patient has correct armband on for positive identification. Bed in low position. Report mb8 received from Mukund Otero RN. Patient is placed in psych hold. 07:09 Primary Nurse role handed off by Mukund Bonner RN [facility] 07:09 Raul Oliveros, YOHANNES is Primary Nurse. mb8 07:15 Appears to be sleeping. Safety Checks: Personal items have been removed. The door is mb8 open or patient has been placed in a hallway bed/chair. There are no family/friend visitors at this time Sitter not present at this time due to or because No sitter available, charge out clerk aware. 07:36 Attending Physician role handed off by Elmer Damico DO cha 07:36 Raymon Avendano MD is Attending Physician. [facility] 08:00 Safety Checks: The door is open or patient has been placed in a hallway bed/chair. mb8 There are no family/friend visitors at this time Sitter not present at this time due to or because no sitter available. 08:00 No provider procedures requiring assistance completed. mb8 08:05 No apparent distress. Appears to be sleeping. mb8 08:37 Patient requests rest room assistance. Patient walked to bathroom by inspector automatic typewriter and taken mb8 back to his room. 09:00 Pt. is pacing. Safety Checks: The door is open or patient has been placed in a hallway mb8 bed/chair. There are no family/friend visitors at this time Sitter not present at this time due to or because no sitter available. 10:00 Resting quietly. Safety Checks: The door is open or patient has been placed in a mb8 hallway bed/chair. There are no family/friend visitors at this time Sitter not present at this time due to or because no sitter available. 10:08 Mariano Robin MD is Referral Physician. [facility] 10:22 IV discontinued, intact, bleeding controlled, No redness/swelling at site. Pressure mb8 dressing applied. Administered Medications: 02:40 Drug: RisperDAL (risperiDONE) 2 mg Route: PO; [facility] 08:06 Follow up: Response: No adverse reaction mb8 Medication: 04/11 22:31 VIS not applicable for this client. hb Outcome: 04/12 03:11 ER care complete, transfer ordered by . ms3 10:10 Discharge ordered by . greyson 10:22 Discharged to home ambulatory. mb8 10:22 Condition: stable 10:22 Discharge instructions given to patient, Instructed on discharge instructions, follow up and referral plans. medication usage, Demonstrated understanding of instructions, follow-up care, medications, Prescriptions given X 1. 10:22 Patient left the ED. mb8 Signatures: Batsheva Gallagher, MACHINE BASTER-C MACHINE BASTER-Ckb Raymon Avendano MD MD cha Baxter, Heather, RN RN Mukund Bonner, RN RN jb4 Elmer Damico DO DO ms3 Luisa Xiong tw5 Raul Oliveros, RN RN mb8 Corrections: (The following items were deleted from the chart) 04/11 23:40 23:00 Reassessment: Pt alert and upright in chair, watching television in no apparent hb distress. hb
--- NOTE | 2022-04-12 03:12 | EDPHYS ---
Physician Documentation [facility] Name: Carlos Walker Age: 31 yrs Sex: Male : 1990 Arrival Date: 04/11/2022 Time: 19:38 Bed 8 Private MD: ED Physician Raymon Avendano HPI: 04/12 00:59 This 31 yrs old Male presents to ER via EMS with complaints of Drug Abuse. kb 01:03 The patient presents to the emergency department with suicide ideation, but the patient kb has no formulated plan, auditory and visual hallucinations. Onset: The symptoms/episode began/occurred yesterday. Past psychiatric history: Prior diagnosis: bipolar disorder, schizophrenia. Associated signs and symptoms: Pertinent positives; hallucinations, substance abuse, suicide ideation. Severity of symptoms: At their worst the symptoms were moderate in the emergency department the symptoms are unchanged. The patient has experienced similar episodes in the past, chronically. The patient has been recently seen at the [facility] Emergency Department. Pt reports auditory and visual hallucinations, as well as suicidal thoughts since yesterday. States he has been out of his psychiatric medications for a while. Reports history of same hallucinations. Historical: - Allergies: 04/11 19:40 Abilify; hb 19:40 Promethazine; hb - PMHx: 19:40 Bipolar disorder; Schizophrenia; hb - Immunization history:: Adult Immunizations unknown. - Social history:: Smoking status: Patient reports the use of cigarette tobacco products, smokes one-half pack cigarettes per day, Patient uses street drugs, Methamphetamine (Meth). ROS: 04/12 00:58 Constitutional: Negative for fever, chills, and weight loss. kb Psych: Positive for auditory hallucinations, visual hallucinations, suicidal ideation. All other systems are negative. Exam: 00:58 Constitutional: This is a well developed, well nourished patient who is awake, alert, kb and in no acute distress. Head/Face: Normocephalic, atraumatic. ENT: Moist Mucous membranes Cardiovascular: Regular rate and rhythm with a normal S1 and S2. No gallops, murmurs, or rubs. No pulse deficits. Respiratory: Respirations even and unlabored. No increased work of breathing. Talking in full sentences Skin: Warm, dry with normal turgor. Normal color. MS/ Extremity: Pulses equal, no cyanosis. Neurovascular intact. Full, normal range of motion. Neuro: Awake and alert, GCS 15, oriented to person, place, time, and situation. Moves all extremities. Normal gait. 00:58 Psych: Behavior/mood is pleasant, cooperative, Affect is flat, Oriented to person, place, time, Patient having thoughts of suicide. Denies suicidal plan. Judgement / Insight is normal. Memory is normal. Delusions/hallucinations are present and described as reports he is hearing things and seeing snakes. 02:25 ECG was reviewed by the Attending Physician. ms3 Vital Signs: 04/11 19:38 BP 172 / 103; Pulse 120; Resp 20; Temp 97.8; Pulse Ox 100% on R/A; Weight 83.91 kg; hb Height 5 ft. 8 in. (172.72 cm); Pain 0/10; 04/12 08:10 BP 119 / 82; Pulse 65; Resp 14; Temp 97.0; Pulse Ox 100% ; Pain 0/10; mb8 04/11 19:38 Body Mass Index 28.13 (83.91 kg, 172.72 cm) hb MDM: 04/11 19:47 Patient medically screened. kb 04/12 00:58 Data reviewed: vital signs, nurses notes. Data interpreted: Pulse oximetry: on room air kb is 100 %. Interpretation: normal. 01:03 Transition of care: After a detail discussion of the patient's case, care is kb transferred to Elmer Damico DO. 04/11 20:03 Order name: Acetaminophen; Complete Time: 03:11 kb 04/11 20:03 Order name: Basic Metabolic Panel; Complete Time: 03:11 kb 04/11 20:03 Order name: CBC with Diff; Complete Time: 03:11 kb 04/11 20:03 Order name: ETOH Level; Complete Time: 03:11 kb 04/11 20:03 Order name: Hepatic Function; Complete Time: 03:11 kb 04/11 20:03 Order name: PT-INR; Complete Time: 03:11 kb 04/11 20:03 Order name: Ptt, Activated; Complete Time: 03:11 kb 04/11 20:03 Order name: Salicylate; Complete Time: 03:11 kb 04/11 20:03 Order name: Urine Drug Screen; Complete Time: 03:11 kb 04/12 02:33 Order name: UA; Complete Time: 03:11 jb4 04/12 03:32 Order name: SARS RAPID; Complete Time: 04:08 bb 04/12 08:11 Order name: Diet Finger Food; Complete Time: 08:12 mb8 04/11 20:03 Order name: EKG - Nurse/Tech; Complete Time: 02:33 kb 04/11 20:03 Order name: IV Saline Lock; Complete Time: 02:10 kb 04/11 20:03 Order name: Labs collected and sent; Complete Time: 02:10 kb 04/11 20:03 Order name: Suicide Screening ([place]); Complete Time: 02:10 kb EC:25 Rate is 73 beats/min. Rhythm is regular. QRS [place] is Normal. VA interval is normal. ms3 Clinical impression: Normal Sinus rhythm with incomplete right bundle branch block. Interpreted by me. Reviewed by me. Administered Medications: 02:40 Drug: RisperDAL (risperiDONE) 2 mg Route: PO; jb4 08:06 Follow up: Response: No adverse reaction mb8 Disposition: 04:10 Co-signature as Attending Physician, Elmer Damico DO. ms3 Disposition Summary: 04/12/22 10:10 Discharge Ordered Location: Home greyson Problem: new(04/12/22 10:10) greyson Symptoms: have improved(04/12/22 10:10) greyson Condition: Stable(04/12/22 10:10) greyson Diagnosis - Visual hallucinations greyson - Hallucinations, unspecified(04/12/22 10:10) greyson - Bipolar disorder, unspecified greyson - Adverse effect of amphetamines greyson - Cocaine abuse greyson Followup: greyson - With: Private Physician - When: 2 - 3 days - Reason: Recheck today's complaints, Continuance of care, Re-evaluation by your physician Followup: greyson - With: Mariano Robin MD - When: 2 - 3 days - Reason: Recheck today's complaints, Re-evaluation by your physician Discharge Instructions: - Discharge Summary Sheet greyson - Amphetamines Use Disorder greyson - Cocaine Use Disorder greyson - Methamphetamines Use Disorder greyson - Managing Bipolar Disorder greyson - Supporting Someone With Bipolar Disorder greyson - Substance Use Disorder and Mental Illness greyson - Supporting Someone With Substance Use Disorder greyson Forms: - Medication Reconciliation Form greyson - Thank You Letter greyson - Antibiotic Education greyson - Prescription Opioid Use greyson Prescriptions: - Risperdal 1 mg Oral tablet - take 1 tablet by ORAL route 2 times per day; 30 tablet; Refills: 0, Product jmm Selection Permitted Signatures: Dispatcher [employer] Batsheva Lutz, WOO ELDER-Raymon Barrios MD MD cha Baxter, Heather, RN RN Mukund Bonner RN RN jb4 lEmer Damico, DO STODDARD ms3 Raul Oliveros RN mb8 Corrections: (The following items were deleted from the chart) 00:59 00:58 Psych: Positive for auditory hallucinations, visual hallucinations, kb kb 02:33 04/11 20:03 Urine Dipstick-Ancillary ordered. kb jb4 04/12 10:07 03:11 Psych ms3 greyson 10:07 03:11 Psych Facility ms3 greyson 10:07 03:11 Higher level of care ms3 greyson 10:07 03:11 Stable ms3 greyson 10:07 03:11 new ms3 greyson 10:07 03:11 are unchanged ms3 greyson 10:07 03:11 Auditory hallucinations ms3 greyson 10:07 03:11 Hallucinations, unspecified ms3 greyson 10:07 03:11 Amphetamine abuse ms3 greyson
[2022-04-12 03:58] LABS: SARS-CoV-2 Antigen Rapid Res Negative (Negative)
[2022-04-12 10:32] VITALS: O2SAT 100
[2022-04-12 10:42] VITALS: BP 119/82; TEMP 97
== END 2022-04-12 10:22 | disposition home or self-care (01) ==
LOC: ER 19:21
DX: R45.851 Suicidal ideations (principal); F14.10 Cocaine abuse, uncomplicated; R44.0 Auditory hallucinations; R44.1 Visual hallucinations; T43.625A Adverse effect of amphetamines, initial encounter; F17.210 Nicotine dependence, cigarettes, uncomplicated
CPT/HCPCS: 36415; 80048; 80076; 80307; 80320; 80329; 81001; 85025; 85610; 85730; 87811; 99285

== ENCOUNTER 2022-04-12 12:31 | Emergency (ER) | payer SELFPAY ==
--- OUTSIDE RECORDS SUMMARY | 2022-04-12 12:40 | XMS REPORT | Continuity of Care Document ---
:1990 Author Organization [facility] t Address [address] [place] [address] Care Team Providers Name Role Phone Pcp-None [...] Clinician Unavailable NANY SON Attending Clinician Unavailable Cidny Atkinson PA-C Attending Clinician HOLLY BILLINGS Attending Clinician Unavailable Lyle Alberts MD Attending Clinician Roberto CHAVIS, Óscar Attending Clinician Manuelito CHAVIS, Holly Chao Attending Clinician [phone] Rc CHAVIS, Kiko Shannon Attending Clinician [...] Clinician Perfecto Gutierres DO Attending Clinician Lucien Alfrao MD Attending Clinician Vipul Barreto MD Attending Clinician Lashanda CHAVIS, Shyanne Narayanan Attending Clinician ROBERT STEVENS Attending Clinician Unavailable Robert Stevens MD Attending Clinician Domitila PATEL Attending Clinician Unavailable Domitila Fowler Attending Clinician Michael Carpenter MD Attending Clinician MICHAEL CARPENTER Attending Clinician Unavailable Susan Maza Attending Clinician SUSAN RON Attending Clinician Unavailable LOPEZ ACEVEDO Attending Clinician Unavailable Anna Marie Diaz MD Attending Clinician [place] Attending Clinician Unavailable [place] Attending Clinician Unavailable [place] MD Attending Clinician Physician, No Primary or Family Admitting Clinician Unavaila caroline GREENBERG Admitting Clinician Unavailable HOLLY BILLINGS Admitting Clinician Unavailable Holly Billings MD Admitting Clinician [phone] JAMES MELISSA Admitting Clinician Unavailable James [...] nivers ysis ysis 7-28 ity of 00:00: [address] Suicidal Suicidal Disease Active Unive rs ideations ideations 7-20 ity of 00:00: [address] Problem Problem [facility] Schizophre Schizophre Disease Active [facility] Polysubsta Polysubsta Disease Active U nivers nce abuse [facility] Bipolar Bipolar Disease Active [facility] Allergies, Adverse Reactions, Alerts Allergy Allergy Status Severity Reaction(s) Onset Inactive Treating Comm ents Source Name Type Date Date Clinician prometha DA Active U Unknown SJm zine 8-17 00:00: 00 aripipra DA Active U Unknown [facility] zole 8-17 00:00: 00 prometha DA [...] 00 [facility]ra [facility] 00 prometha DA Active [place] 0 [facility] zine 3-05 [place] 00:00: d [address] [place] [address] aripipra DA Active SV 2020-0 [facility] zole 3-05 [place] 00:00: d 00 [facility] prometha DA Active MO TREMORS 2020-0 [facility] zine 3-05 [place] 00:00: d 00 [facility] aripipra DA Active SV DYSTONIC 2020-0 [facility] zole REACTION 3-05 [place] 00:00: d 00 [facility] ARIPIPRA DRUG Active Unknown-Cmnt 20190 Un tiffany ZOLE INGREDI 5-06 ity of 00:00: [place] [address] [facility] PHENERGA DRUG Active Unknown-Cmnt 2019-0 Un tiffany N PLAIN 5-06 ity of 00:00: [place] [address] [facility] Aripipra Propensi Active Unknown - 2019-0 Uni vers zole ty to See comments - ity of adverse 00:00: [place] reaction 00 [facility] Phenerga Propensi Active Unknown - 2019-0 Uni vers n Plain ty to See comments - ity of adverse 00:00: [place] reaction 00 [facility] prometha Drug Active [facility] Abilify Drug Active [facility] prometha Drug Active [facility] Abilify Drug Active [facility] prometha Drug Active [facility] prometha Drug Active [facility] Abilify Drug Active [facility] Abilify Drug Active [facility] prometha Drug Active [facility] Abilify Drug Active [facility] prometha Drug Active [facility] Abilify Drug Active [facility] Social History Social Habit Start Date Stop Date Quantity Comments Source History of Passive smoker University of tobacco use [facility] Exposure to 2022-01-25 2022-02-04 Not sure University of SARS-CoV-2 00:00:00 14:20:00 [facility] [place] [facility] (event) [place] Alcohol intake 2022-02-04 2022-02-04 Current drinker Unive rsity of 00:00:00 00:00:00 of alcohol [facility] [place] [facility] (finding) [place] Tobacco use and 2022-01-22 2022-01-22 Smokeless tobacco Un iversity of exposure 00:00:00 00:00:00 non-user [facility] Sex Assigned At [birth year] Female [facility] 00:00:00 00:00:00 Smoking Status Start Date Stop Date Source Unknown if ever smoked [facility] Smokes tobacco daily 2022-01-22 00:00:00 Univers ity of [facility] Medications Ordered Filled Start Stop Current Ordering [...] ity of infusion 03:15: 04:25 1,000 mL, Jonh as 1,000 mL 00 :00 IV Medical Infusion, Branch ONCE, 1 dose, On 01/26/22 at 2215, TOMAS dicyclomine Yes [id number] 20mg Take 1 Univers 20 mg 8-01 tablet by ity of tablet 00:00: mouth 4 [place] 00 (four) Medical times Branch daily. dicyclomine 2021-0 Yes [id number] 20mg Take 1 Univers 20 mg 8-01 tablet by ity of tablet 00:00: mouth 4 [place] 00 (four) Medical times Branch daily. dicyclomine 2021-0 Yes [id number] 20mg Take 1 Univers 20 mg 8-01 tablet by ity of tablet 00:00: mouth 4 [place] 00 (four) Medical times Branch daily. dicyclomine 2021-0 2022- No [id number] 20mg Take 1 Univers 20 mg 8-01 08-01 tablet by ity of tablet 00:00: 00:00 mouth 4 [place] 00 :00 (four) Medical times Branch daily. traZODone Yes 50mg 50 mg, Univer s (DESYREL) 01-25 Oral, QHS, ity of tablet 50 02:00: [place] 00 (after Medical last Branch modificati on) on [facility] 01/24/22 at 2100, Until Discontinu ed, Routine [...] ity of 2 mg tablet 18:04: at [place] [address] bedtime. Medical Branch traZODone 0 Yes 50mg Take 50 mg Un tiffany 50 mg 7-29 by mouth ity of tablet 18:04: at [place] [address] bedtime. Medical Branch risperiDONE 2021-0 Yes 2mg Take 2 mg U nivers (RISPERDAL) 7-29 by mouth ity of 2 mg tablet 18:04: at [place] [address] bedtime. Medical Branch traZODone 2021-0 Yes 50mg Take 50 mg Un tiffany 50 mg 7-29 by mouth ity of tablet 18:04: at [place] [address] bedtime. Medical Branch risperiDONE 0 Yes 2mg Take 2 mg U nivers (RISPERDAL) 7-29 by mouth ity of 2 mg tablet 18:04: at [place] [address] bedtime. Medical Branch traZODone 2021-0 Yes 50mg Take 50 mg Un tiffany 50 mg 7-29 by mouth ity of tablet 18:04: at [place] [address] bedtime. Medical Branch risperiDONE 2021-0 Yes 2mg Take 2 mg U nivers (RISPERDAL) 7-29 by mouth ity of 2 mg tablet 18:04: at [place] [address] bedtime. Medical Branch traZODone 0 Yes 50mg Take 50 mg Un tiffany 50 mg 7-29 by mouth ity of tablet 18:04: at [place] [address] bedtime. Medical Branch lactated 0 Yes 1000mL [...] en - Oral, ity of (TYLENOL) [facility]:32[facility] [place] tablet 650 25 Starting Medic al mg [...] ity of 2 mg tablet 17:15: at [place] [address] bedtime. Medical Branch traZODone Yes 50mg Take 50 mg Un tiffany 50 mg 01-16 by mouth ity of tablet 17:15: at [place] [address] bedtime. Medical Branch risperiDONE Yes 2mg Take 2 mg U nivers (RISPERDAL) 01-16 by mouth ity of 2 mg tablet 17:15: at [place] [address] bedtime. Medical Branch traZODone Yes 50mg Take 50 mg Un tiffany 50 mg 22 by mouth ity of tablet 17:15: at [place] [address] bedtime. Medical Branch lidocaine 2021- Yes 1{patch [...] dose [place] 00 [place] Wed [facility] 01/14/22 at Branch 2100, Until Discontinu ed, Routine risperiDONE 0 Yes 2mg 2 mg, Unive rs (RISPERDAL) 01-15 Oral, QHS, it y of tablet 2 mg 02:00: First dose [place] 00 on Wed [facility] 01/14/22 at Branch 2100, Until Discontinu ed, Routine benztropine 0 Yes 1mg 1 mg, Unive rs (COGENTIN) 01-15 Oral, BID, ity of tablet 1 mg 01:00: First dose [place] 00 on Wed [facility] 01/14/22 at Branch 2000, Until [...] mg 00 First dose Medical on Wed [place] 01/14/22 at 1700, Until Discontinu ed, Routine acetaminoph 2021-0 Yes 650mg 650 mg, Un tiffany en -20 Oral, ity of (TYLENOL) 16:06: Q6HPRN, [place] tablet 650 11 Starting Medic al mg [...] 6-12 Oral, ity of (ROBAXIN) 03:07: QIDPRN, [place] tablet 500 17 Starting Medic al mg on Wed Branch 12/06/21 at 2207, Until Discontinu ed, Routine, Muscle Spasms OLANZapine 2021-0 Yes 5mg 5 mg, Univer s ZYDIS 6-12 Oral, BID, ity of (ZyPREXA 01:00: First dose John as ZYDIS) 00 on [facility] Medical disintegrat 6/11/22 at Br anch ing [...] MARIE DIAZ oxymetazoli 2019- No 1{spray 1 [place], Univers ne 03-03 } Nasal, ity of (OXYMETAZOL 09:15: 08:42 ONCE, 1 [place] INE HCL) 00 :00 dose, Fri Medica l 0.05 % 03/03/19 at Branch nasal spray 0415, TOMAS 1 [place] oxymetazoli 2019- No 2{spray 2 [place], Univers ne 03-03 } Nasal, ity of (OXYMETAZOL 09:15: 08:03 ONCE, 1 [place] IN[place] HCL) 00 :00 dose, Fri Medica l 0.05 % 03/03/19 at Branch nasal spray 0415, 2 [place] Routine tetanus-dip 2019-0 2019- No .5mL 0.5 mL, Un tiffany htheria 03-03 09-06 Intramuscu ity o f toxoids 09:00: 08:04 lar, ONCE, John as (TDVAX) 2-2 00 :00 1 dose, Medic al Lf unit/0.5 03/03/19 Br anch mL at 0400, injection Routine 0.5 mL divalproex Yes [id number] 1000mg Take 2 Univers (DEPAKOTE) 7-04 tablets by ity of 500 mg EC 00:00: mouth [place] tablet 00 every 12 Medical (twelve) Branch hours. divalproex 2018- Yes [id number] 1000mg Take 2 Univers (DEPAKOTE) 7-04 tablets by ity of 500 mg EC 00:00: mouth [place] tablet 00 every 12 Medical (twelve) Branch hours. divalproex Yes [id number] 1000mg Take 2 Univers (DEPAKOTE) 7-04 tablets by ity of 500 mg EC 00:00: mouth [place] tablet 00 every 12 Medical (twelve) Branch hours. divalproex Yes [id number] 1000mg Take 2 Univers (DEPAKOTE) 7-04 tablets by ity of 500 mg EC 00:00: mouth [place] tablet 00 every 12 Medical (twelve) Branch hours. divalproex 2018- Yes [id number] 1000mg Take 2 Univers (DEPAKOTE) 7-04 tablets by ity of 500 mg EC 00:00: mouth [place] tablet 00 every 12 Medical (twelve) Branch hours. divalproex 2019-0 Yes [id number] 1000mg Take 2 Univers (DEPAKOTE) 7-04 tablets by ity of 500 mg EC 00:00: mouth [place] tablet 00 every 12 Medical (twelve) Branch hours. divalproex 2018- Yes [id number] 1000mg Take 2 Univers (DEPAKOTE) 7-04 tablets by ity of 500 mg EC 00:00: mouth [place] tablet 00 every 12 Medical (twelve) Branch hours. divalproex 2019- Yes [id number] 1000mg Take 2 Univers (DEPAKOTE) 7-04 tablets by ity of 500 mg EC 00:00: mouth [place] tablet 00 every 12 Medical (twelve) Branch hours. divalproex Yes [id number] 1000mg Take 2 Univers (DEPAKOTE) 7-04 tablets by ity of 500 mg EC 00:00: mouth [place] tablet 00 every 12 Medical (twelve) Branch hours. divalproex Yes [id number] 1000mg Take 2 Univers (DEPAKOTE) 7-04 tablets by ity of 500 mg EC 00:00: mouth [place] tablet 00 every 12 Medical (twelve) Branch hours. divalproex 2022- No [id number] 1000mg Take 2 Univers (DEPAKOTE) 7-04 07-22 tablets by it y of 500 mg EC 00:00: 00:00 mouth [place] tablet 00 :00 every 12 Medical (twelve) Branch hours. acetaminoph Yes [id number] 1{tbl} Take 1 Univers en-codeine 6-22 tablet by ity of 300-30 mg 00:00: mouth [place] tablet 00 every 4 Medical (four) Branch hours as needed for Pain (scale 4-6) or Pain (scale 7-10). oxymetazoli Yes [id number] 1{spray Use 1 Univers ne (AFRIN, 6-22 } [place] in ity o f OXYMETAZOLI 00:00: each [place] NE,) 0.05 % 00 nostril as Me dical nasal spray needed Branch (epistaxis ). acetaminoph Yes [id number] 1{tbl} Take 1 Univers en-codeine 6-22 tablet by ity of 300-30 mg 00:00: mouth [place] tablet 00 every 4 Medical (four) Branch hours as needed for Pain (scale 4-6) or Pain (scale 7-10). oxymetazoli Yes [id number] 1{spray Use 1 Univers ne (AFRIN, 6-22 } [place] in ity o f OXYMETAZOLI 00:00: each [place],) 0.05 % 00 nostril as Me dical nasal spray needed Branch (epistaxis ). acetaminoph Yes [id number] 1{tbl} Take 1 Univers en-codeine 6-22 tablet by ity of 300-30 mg 00:00: mouth [place] tablet 00 every 4 Medical (four) Branch hours as needed for Pain (scale 4-6) or Pain (scale 7-10). oxymetazoli Yes [id number] 1{spray Use 1 Univers ne (AFRIN, 6-22 } [place] in ity o f OXYMETAZOLI 00:00: each [place],) 0.05 % 00 nostril as Me dical nasal spray needed Branch (epistaxis ). acetaminoph Yes [id number] 1{tbl} Take 1 Univers en-codeine 6-22 tablet by ity of 300-30 mg 00:00: mouth [place] tablet 00 every 4 Medical (four) Branch hours as needed for Pain (scale 4-6) or Pain (scale 7-10). oxymetazoli Yes [id number] 1{spray Use 1 Univers ne (AFRIN, 6-22 } [place] in ity o f OXYMETAZOLI 00:00: each [place],) 0.05 % 00 nostril as Me dical nasal spray needed Branch (epistaxis ). acetaminoph 2020- No [id number] 1{tbl} Take 1 Univers en-codeine 6-22 02-23 tablet by ity of 300-30 mg 00:00: 00:00 mouth [place] tablet 00 :00 every 4 Medical (four) Branch hours as needed for Pain (scale 4-6) or Pain (scale 7-10). oxymetazoli 2020- No [id number] 1{spray Use 1 Univers ne (AFRIN, 6-22 02-23 } [place] in ity of OXYMETAZOLI 00:00: 00:00 each [place],) 0.05 % 00 :00 nostril as Me dical nasal spray needed Branch (epistaxis ). Immunizations Ordered Filled Immunization Date Status Comments [facility] e Immunization Name Name Td 2019-03-03 Completed University of 00:00:00 [facility] Td 2019-03-03 Completed University of 00:00:00 [facility] Td 2019-03-03 Completed University of 00:00:00 [facility] Td 2019-03-03 Completed University of 00:00:00 [facility] Td 2019-03-03 Completed University of 00:00:00 [facility] Td 2019-03-03 Completed University of 00:00:00 [place] [facility] Td 2019-03-03 Completed University of 00:00:00 [place] [facility] Td 2019-03-03 Completed University of 00:00:00 [place] [facility] Td 2019-03-03 Completed University of 00:00:00 [place] [facility] Td 2019-03-03 Completed University of 00:00:00 [place] [facility] Td 2019-03-03 Completed University of 00:00:00 [place] [facility] Td 2019-03-03 Completed University of 00:00:00 [place] [facility] Td 2019-03-03 Completed University of 00:00:00 [place] [facility] Td 2019-03-03 Completed University of 00:00:00 [place] [facility] Td 2019-03-03 Completed University of 00:00:00 [facility] Vital Signs Vital Name Observation Time Observation Value Comments Source Systolic blood 2022-02-04 19:21:00 120 mm[Hg] Univer sity of pressure [facility] Diastolic blood 2022-02-04 19:21:00 82 mm[Hg] Unive rsity of [facility] Heart rate 2022-02-04 19:21:00 103 /min [facility] Body temperature 2022-02-04 19:21:00 36.89 [facility] [place] [facility] 2022-02-04 19:21:00 25 /min [facility] Body weight 2022-02-04 19:21:00 83.915 kg [facility] BMI 2022-02-04 19:21:00 28.13 kg/m2 [facility] Oxygen saturation in 2022-02-04 19:21:00 96 /min [facility] Arterial blood by [facility] Pulse oximetry Branch Systolic blood 2022-01-31 14:27:00 135 mm[Hg] Univer sity of pressure [facility] Diastolic blood 2022-01-31 14:27:00 91 mm[Hg] Unive rsity of pressure [facility] Heart rate 2022-01-31 14:27:00 99 /min Universi ty [facility] Respiratory rate 2022-01-31 14:27:00 18 /min [facility] [place] [facility] O[facility] saturation in 2022-01-31 14:27:00 96 /min University of Arterial blood by [facility] arturo Pulse oximetry Branch Body temperature 2022-01-31 00:14:00 37.33 Lela Univ ersity of [place] [facility] Body weight 2022-01-31 00:14:00 83.915 kg Universi ty of [place] [facility] BMI 2022-01-31 00:14:00 28.13 kg/m2 Universi ty of [place] [facility] Systolic blood 2022-01-27 04:14:00 110 mm[Hg] Univer sity of pressure [place] [facility] Diastolic blood 2022-01-27 04:14:00 70 mm[Hg] Unive rsity of pressure [place] [facility] Heart rate 2022-01-27 04:14:00 56 /min Universi ty of [place] [facility] Respiratory rate 2022-01-27 04:14:00 18 /min Univ ersity of [place] [facility] Oxygen saturation in 2022-01-27 04:14:00 98 /min University of Arterial blood by [facility] Pulse oximetry Branch Body temperature 2022-01-27 00:11:00 36.83 Lela Univ ersity of [place] [facility] Systolic blood 2022-01-23 16:37:00 124 mm[Hg] Univer sity of pressure [place] [facility] Diastolic blood 2022-01-23 16:37:00 85 mm[Hg] Unive rsity of pressure [place] [facility] Heart rate 2022-01-23 16:37:00 85 /min Universi ty of [place] [facility] Body temperature 2022-01-23 16:37:00 36.78 Lela Univ ersity of [place] [facility] Respiratory rate 2022-01-23 16:37:00 18 /min Univ ersity of [place] [facility] Oxygen saturation in 2022-01-23 16:37:00 94 /min University of Arterial blood by [facility] Pulse oximetry Branch Body height 2022-01-23 01:52:00 172.7 cm Universi ty of [place] [facility] Body weight 2022-01-23 01:52:00 75.978 kg Universi ty of [place] [facility] BMI 2022-01-23 01:52:00 25.47 kg/m2 Universi ty of [place] [facility] Systolic blood 2022-01-16 15:59:00 125 mm[Hg] Univer sity of pressure [place] [facility] Diastolic blood 2022-01-16 15:59:00 73 mm[Hg] Unive rsity of pressure [place] [facility] Heart rate 2022-01-16 15:59:00 66 /min Universi ty of [place] [facility] Body temperature 2022-01-16 15:59:00 36.33 Lela Univ ersity of [place] [facility] Respiratory rate 2022-01-16 15:59:00 17 /min Univ ersity of [place] [facility] Oxygen saturation in 2022-01-16 15:59:00 97 /min University of Arterial blood by [place] [facility] arturo Pulse oximetry Branch Body height 2022-01-15 03:16:00 172.7 cm Universi ty of [place] [facility] Body weight 2022-01-15 03:16:00 80.967 kg Universi ty of [place] [facility] BMI 2022-01-15 03:16:00 27.14 kg/m2 Universi ty of [place] [facility] Systolic blood 2022-01-08 09:28:00 120 mm[Hg] Univer sity of pressure [place] [facility] Diastolic blood 2022-01-08 09:28:00 77 mm[Hg] Unive rsity of pressure [place] [facility] Heart rate 2022-01-08 09:28:00 123 /min Universi ty of [place] [facility] Body temperature 2022-01-08 09:28:00 37.78 Lela Univ ersity of [place] [facility] Respiratory rate 2022-01-08 09:28:00 20 /min Univ ersity of [place] [facility] Body weight 2022-01-08 09:28:00 77.111 kg Universi ty of [place] [facility] BMI 2022-01-08 09:28:00 25.85 kg/m2 Universi ty of [place] [facility] Oxygen saturation in 2022-01-08 09:28:00 98 /min University of Arterial blood by [facility] arturo Pulse oximetry Branch Systolic blood 2021-12-08 22:24:00 111 mm[Hg] Univer sity of pressure [place] [facility] Diastolic blood 2021-12-08 22:24:00 66 mm[Hg] Unive rsity of pressure [place] [facility] Heart rate 2021-12-08 22:24:00 73 /min Universi ty of [place] [facility] Body temperature 2021-12-08 22:24:00 36.94 Lela Univ ersity of [place] [facility] Respiratory rate 2021-12-08 22:24:00 16 /min Univ ersity of [place] [facility] Oxygen saturation in 2021-12-08 22:24:00 98 /min University of Arterial blood by [place] [facility] arturo Pulse oximetry Branch Body weight 2021-12-05 07:41:00 77.111 kg Universi ty of [place] [facility] BMI 2021-12-05 07:41:00 25.85 kg/m2 Universi ty of [place] [facility] Systolic blood 2021-11-22 05:19:00 136 mm[Hg] Univer sity of pressure [place] [facility] Diastolic blood 2021-11-22 05:19:00 83 mm[Hg] Unive rsity of pressure [place] [facility] Heart rate 2021-11-22 05:19:00 113 /min Universi ty of [place] [facility] Respiratory rate 2021-11-22 05:19:00 19 /min Univ ersity of [place] [facility] Oxygen saturation in 2021-11-22 05:19:00 100 /min University of Arterial blood by [facility] Pulse oximetry Branch Body temperature 2021-11-22 02:47:00 36.61 Lela Univ ersity of [place] [facility] Body weight 2021-11-22 02:47:00 77.111 kg Universi ty of [place] [facility] BMI 2021-11-22 02:47:00 25.85 kg/m2 Universi ty of [place] [facility] Systolic blood 2021-09-24 09:06:00 130 mm[Hg] Univer sity of pressure [place] [facility] Diastolic blood 2021-09-24 09:06:00 87 mm[Hg] Unive rsity of pressure [place] [facility] Heart rate 2021-09-24 09:06:00 115 /min Universi ty of [place] [facility] Respiratory rate 2021-09-24 09:06:00 20 /min Univ ersity of [place] [facility] Oxygen saturation in 2021-09-24 09:06:00 96 /min University of Arterial blood by [place] [facility] Pulse oximetry Branch Body temperature 2021-09-24 05:04:00 37 Lela Univ ersity of [place] [facility] Body height 2021-09-24 05:04:00 172.7 cm Universi ty of [place] [facility] Body weight 2021-09-24 05:04:00 77.111 kg Universi ty [facility] [place] [facility] BMI 2021-09-24 05:04:00 25.85 kg/m2 Universi ty [facility] [place] [facility] Systolic blood 2020-04-16 17:31:00 146 mm[Hg] Univer sity of pressure [place] [facility] Diastolic blood 2020-04-16 17:31:00 99 mm[Hg] Unive rsity of pressure [place] [facility] Heart rate 2020-04-16 17:31:00 90 /min Universi ty of [place] [facility] Respiratory rate 2020-04-16 17:31:00 18 /min Univ ersity of [place] [facility] Oxygen saturation in 2020-04-16 17:31:00 99 /min University of Arterial blood by [facility] arturo Pulse oximetry Branch Body temperature 2020-04-16 15:36:00 36.56 Lela Univ ersity of [place] [facility] Body weight 2020-04-16 15:36:00 68.04 kg Universi ty of [place] [facility] BMI 2020-04-16 15:36:00 23.49 kg/m2 Universi ty [facility] [place] [facility] Systolic blood 2019-08-22 18:00:00 128 mm[Hg] Univer sity of pressure [place] [facility] Diastolic blood 2019-08-22 18:00:00 84 mm[Hg] Unive rsity of pressure [place] [facility] Heart rate 2019-08-22 18:00:00 76 /min Universi ty of [place] [facility] Respiratory rate 2019-08-22 18:00:00 16 /min Univ ersity of [place] [facility] Oxygen saturation in 2019-08-22 18:00:00 99 /min University of Arterial blood by [facility] arturo Pulse oximetry Branch Body temperature 2019-08-22 10:53:00 36.78 Lela Univ ersity of [place] [facility] Body weight 2019-08-21 03:07:00 63.504 kg Universi ty of [place] [facility] BMI 2019-08-21 03:07:00 21.93 kg/m2 Universi ty [facility] [place] [facility] Systolic blood 2019-08-22 18:00:00 128 mm[Hg] Univer sity of pressure [place] [facility] Diastolic blood 2019-08-22 18:00:00 84 mm[Hg] Unive rsity of pressure [place] [facility] Heart rate 2019-08-22 18:00:00 76 /min Universi ty of [place] [facility] Respiratory rate 2019-08-22 18:00:00 16 /min Univ ersity of [place] [facility] Oxygen saturation in 2019-08-22 18:00:00 99 /min University of Arterial blood by [place] [facility] arturo Pulse oximetry Branch Body temperature 2019-08-22 10:53:00 36.78 Lela Univ ersity of [place] [facility] Body weight 2019-08-21 03:07:00 63.504 kg Universi ty of [place] [facility] BMI 2019-08-21 03:07:00 21.93 kg/m2 Universi ty [facility] [place] [facility] Systolic blood 2019-08-18 01:47:00 155 mm[Hg] Univer sity of pressure [place] [facility] Diastolic blood 2019-08-18 01:47:00 90 mm[Hg] Unive rsity of pressure [place] [facility] Heart rate 2019-08-18 01:47:00 102 /min Universi ty of [place] [facility] Body temperature 2019-08-18 01:47:00 36.67 Lela Univ ersity of [place] [facility] Respiratory rate 2019-08-18 01:47:00 20 /min Univ ersity of [place] [facility] Body weight 2019-08-18 01:47:00 70.308 kg Universi ty [facility] [place] [facility] BMI 2019-08-18 01:47:00 24.28 kg/m2 [facility] Oxygen saturation in 2019-08-18 01:47:00 99 /min [facility] of Arterial blood by [facility] Pulse oximetry Branch Systolic blood 2019-08-18 01:47:00 155 mm[Hg] [facility] [place] [facility] Diastolic blood 2019-08-18 01:47:00 90 mm[Hg] [facility] [place] [facility] Heart rate 2019-08-18 01:47:00 102 /min [facility] [place] [facility] Body temperature 2019-08-18 01:47:00 36.67 Lela [facility] [place] [facility] Respiratory rate 2019-08-18 01:47:00 20 /min [facility] [place] [facility] Body weight 2019-08-18 01:47:00 70.308 kg [facility] [place] [facility] BMI 2019-08-18 01:47:00 24.28 kg/m2 [facility] [place] [facility] Oxygen saturation in 2019-08-18 01:47:00 99 /min [facility] Arterial blood by [facility] arturo Pulse oximetry Branch Systolic blood 2019-08-13 23:34:00 119 mm[Hg] [facility] [place] [facility] Diastolic blood 2019-08-13 23:34:00 67 mm[Hg] [facility]ive [facility] [place] [facility] Heart rate 2019-08-13 23:34:00 85 /min [facility] [place] [facility] Body temperature 2019-08-13 23:34:00 37.06 Lela [facility] [place] [facility] Respiratory rate 2019-08-13 23:34:00 18 /min [facility] [place] [facility] Body height 2019-08-13 23:34:00 170.2 cm [facility] [place] [facility] Body weight 2019-08-13 23:34:00 68.947 kg [facility] [place] [facility] BMI 2019-08-13 23:34:00 23.81 kg/m2 [facility] [place] [facility] Oxygen saturation in 2019-08-13 23:34:00 99 /min [facility] Arterial blood by [facility] arturo Pulse oximetry Branch Systolic blood 2019-08-13 23:34:00 119 mm[Hg] [facility] [place] [facility] Diastolic blood 2019-08-13 23:34:00 67 mm[Hg] [facility] [place] [facility] Heart rate 2019-08-13 23:34:00 85 /min [facility] [place] [facility] Body temperature 2019-08-13 23:34:00 37.06 Lela [facility] [place] [facility] Respiratory rate 2019-08-13 23:34:00 18 /min [facility] [place] [facility] Body height 2019-08-13 23:34:00 170.2 cm [facility] [place] [facility] Body weight 2019-08-13 23:34:00 68.947 kg [facility] [place] [facility] BMI 2019-08-13 23:34:00 23.81 kg/m2 [facility] [place] [facility] Oxygen saturation in 2019-08-13 23:34:00 99 /min [facility] Arterial blood by [employer] arturo Pulse oximetry Branch Systolic blood 2019-03-03 08:00:00 143 mm[Hg] [facility] [place] [facility] Diastolic blood 2019-03-03 08:00:00 99 mm[Hg] [facility] [place] [facility] Heart rate 2019-03-03 08:00:00 85 /min [facility] [place] [facility] Respiratory rate 2019-03-03 08:00:00 16 /min Univ ersity of [facility] Oxygen saturation in 2019-03-03 08:00:00 99 /min [facility] Arterial blood by [facility] Pulse oximetry Branch Body weight 2019-03-03 07:55:00 72.122 kg Universi ty [facility] Body temperature 2019-03-03 07:42:00 36.94 Lela [facility] ersity of [facility] Systolic blood 2019-03-03 08:00:00 143 mm[Hg] Univer sity of pressure [facility] Diastolic blood 2019-03-03 08:00:00 99 mm[Hg] Unive rsity of pressure [facility] Heart rate 2019-03-03 08:00:00 85 /min Universi ty [facility] Respiratory rate 2019-03-03 08:00:00 16 /min Univ ersity of [facility] Oxygen saturation in 2019-03-03 08:00:00 99 /min [facility] Arterial blood by [facility] Pulse oximetry Branch Body weight 2019-03-03 07:55:00 72.122 kg Universi ty [facility] Body temperature 2019-03-03 07:42:00 36.94 Lela [facility] Height/Length 2021-07-15 10:28:49 172 cm Measured [...] Health BP Systolic 2020-08-03 15:36:00 114 mm[Hg] [facility] Heart Rate 2020-08-03 15:36:00 69 /min [facility] Health Respiratory rate 2020-08-03 15:36:00 18 /min [facility] Body Temperature 2020-08-03 15:36:00 98.7 [degF] [facility] BP Diastolic 2020-08-03 15:10:00 81 mm[Hg] [facility] BP Systolic 2020-08-03 15:10:00 114 mm[Hg] [facility] Heart Rate 2020-08-03 15:10:00 69 /min [facility] Respiratory rate 2020-08-03 15:10:00 18 /min [facility] Body Temperature 2020-08-03 15:10:00 98.7 [degF] [facility] Procedures Procedure Date / Time Performing Clinician Source Performed COVID-19 (MOLECULAR 2022-01-31 09:18:00 Mariam Palencia [facility] TESTING [facility] NUCLEIC ACID AMPLIFICATION) URINALYSIS 2022-01-31 02:58:00 Mariam Palencia [facility] URINE DRUG (IMMUNOASSAY) 2022-01-31 02:58:00 Mariam Palencia [facility] nch SCREEN W/O REFLEX CREATINE KINASE 2022-01-31 01:37:00 Mariam Palencia [facility] THYROID STIMULATING 2022-01-31 01:37:00 Mariam Palencia [facility] HORMONE [facility] COMP. METABOLIC PANEL 2022-01-31 01:37:00 Mariam Palencia [facility] ([id number]) [facility] SALICYLATE 2022-01-31 01:37:00 Mariam Palencia [facility] ETHANOL 2022-01-31 01:37:00 Mariam Palencia [facility] CBC WITH DIFF 2022-01-31 01:37:00 Mariam Palencia [facility] COVID-19 (ID NOW RAPID 2022-01-31 01:37:00 Mariam Palencia [facility] TESTING) Medical [place] URINALYSIS 2022-01-27 02:59:00 Cindy Atkinson o f [facility] CREATINE KINASE 2022-01-27 02:40:00 [place] [facility] LIPASE 2022-01-27 02:40:00 [facility] COMP. METABOLIC PANEL 2022-01-27 02:40:00 [place] [facility] ([id number]) Medical Branch CBC WITH DIFF 2022-01-27 02:40[facility] 2022-01-23 19:30[facility]00 [facility]OLIC PANEL 2022-01-23 19:30:00 [facility] (NA, K, CL, CO2, GLUCOSE, Medica l Branch BUN, CREATININE, CA) CREATINE KINASE 2022-01-23 10:57:00 [facility] MAGNESIUM 2022-01-23 10:57:00 [facility] BASIC METABOLIC PANEL 2022-01-23 10:57:00 [facility] (NA, K, CL, CO2, GLUCOSE, Medica l Branch BUN, CREATININE, CA) CBC WITH DIFF 2022-01-23 10:57:00 [facility] CREATINE KINASE 2022-01-22 21:24:00 Roberto [facility] MYOGLOBIN SERUM 2022-01-22 21:24:00 [facility] COVID-19 (ID NOW RAPID 2022-01-22 21:24:00 Óscar Mejia [facility] TESTING) Medical Branch LAB ONLY COVID 2022-01-22 21:24:00 Roberto [facility] URINALYSIS 2022-01-22 10:41:00 [facility] (IMMUNOASSAY) 2022-01-22 10:41:00 Lyle Alberts [facility] - COMPREHENSIVE DRUG Medical [facility] SCREEN CREATINE KINASE 2022-01-22 06:25:00 Lyle Alberts [facility] COMP. METABOLIC PANEL 2022-01-22 06:25:00 Lyle Alberts [facility] ([id number]) Medical Branch SALICYLATE 2022-01-22 06:25:00 Lyle Alberts [facility] ETHANOL 2022-01-22 06:25:00 [facility] CBC WITH DIFF 2022-01-22 06:25:00 [facility] COVID-19 (ID NOW RAPID 2022-01-22 06:25:00 Lyle Alberts [facility] TESTING) Medical Branch LAB ONLY COVID 2022-01-22 06:25:00 Lexus [facility] INTERPRETATION [facility] CREATINE KINASE 2022-01-16 09:08:00 [facility] MAGN[facility]IUM 2022-01-16 09:08:00 [facility] BASIC METABOLIC PANEL 2022-01-16 09:08:00 Mary [facility] (NA, K, CL, CO2, GLUCOSE, [employer] Medica l Branch BUN, CREATININE, CA) CREATINE KINASE 2022-01-15 17:25:00 Saurabh [facility] CREATINE KINASE 2022-01-15 09:43:00 Saurabh [facility] MAGNESIUM 2022-01-15 09:43:00 Saurabh [facility] BASIC METABOLIC PANEL 2022-01-15 09:43:00 [facility] (NA, K, CL, CO2, GLUCOSE, Medica l Branch BUN, CREATININE, CA) CBC WITH DIFF 2022-01-15 09:43:00 Saurabh [facility] CREATINE KINASE 2022-01-14 22:44:00 Saurabh [facility] CREATINE KINASE 2022-01-14 17:43:00 Saurabh [facility] BASIC METABOLIC PANEL 2022-01-14 17:43:00 Saurabh [facility] (NA, K, CL, CO2, GLUCOSE, Medica l Branch BUN, CREATININE, CA) URINALYSIS 2022-01-14 05:31:00 Margo, [facility] URINE DRUG (IMMUNOASSAY) 2022-01-14 05:31:00 Norbert Aragon [facility] SCREEN W/O REFLEX CREATINE KINASE 2022-01-14 04:51:00 Margo [facility] COMP. METABOLIC PANEL 2022-01-14 04:51:00 Norbert Aragon [facility] ([id number]) [facility] SALICYLATE 2022-01-14 04:51:00 Margo [facility] ETHANOL 2022-01-14 04:51:00 Margo [facility] CBC WITH DIFF 2022-01-14 04:51:00 Margo [facility] COVID-19 (ID NOW RAPID 2022-01-14 04:51:00 Norbert Aragon [facility] TESTING) [facility] LAB ONLY COVID 2022-01-14 04:51:00 Margo [facility] URINALYSIS 2021-12-05 16:37:[address] [facility] URINE DRUG (IMMUNOASSAY) 2021-12-05 09:48:00 Ld [facility] SCREEN CREATINE KINASE 2021-12-05 08:34:00 Ld Franklin [facility] COMP. METABOLIC PANEL 2021-12-05 08:34:00 Ld Franklin [facility] ([id number]) [facility] ETHANOL 2021-12-05 08:34:00 Ld Franklin [facility] SERUM DRUG (IMMUNOASSAY) 2021-12-05 08:34:00 Ld [facility] SCREEN CBC WITH DIFF 2021-12-05 08:34:00 Ld Franklin [facility] COVID-19 (MOLECULAR 2021-12-05 08:34:00 Ld Franklin [facility] TESTING [facility] Branch NUCLEIC ACID AMPLIFICATION) LAB ONLY COVID 2021-12-05 08:34:00 Ld [facility] CREATINE KINASE 2021-11-22 04:56:00 Robert Stevens [facility] CREATINE KINASE 2021-11-22 03:55:00 Robert Stevens [facility] COMP. METABOLIC PANEL 2021-11-22 03:55:00 Robert Stevens [facility] ([id number]) Medical Branch SALICYLATE 2021-11-22 03:10:00 Robert Stevens [facility] ETHANOL 2021-11-22 03:10:00 Robert Stevens [facility] CBC WITH DIFF 2021-11-22 03:10:00 Ju Stevensian Maria L [facility] COVID-19 (ID NOW RAPID 2021-11-22 03:10:00 Robert Stevens [facility] TESTING) Medical Branch XR FINGERS 2 VW RIGHT 2020-04-16 16:58:04 Domitila Patel [facility] XR CERVICAL SPINE 3 VW 2020-04-16 16:57:12 Domitila Patel [facility] GALV/CLC ONLY - URINE 2019-08-21 04:53:00 Michael Carpenter [facility] DRUG (IMMUNOASSAY) - Medical [facility] COMPREHENSIVE DRUG SCREEN URINALYSIS 2019-08-21 04:53:[address] [facility] CREATINE KINASE 2019-08-21 03:32:00 Maureen Acosta [facility] HEPATIC FUNCTION PANEL 2019-08-21 03:32:00 Michael Carpenter [facility] ([id number]) (ALB,T.PRO,BILI Medical Branch T,BU/BC,ALT,AST,ALK PHOS) BASIC METABOLIC PANEL 2019-08-21 03:32:00 Michael Carpenter [facility] (NA, K, CL, CO2, GLUCOSE, Medica l Branch BUN, CREATININE, CA) SALICYLATE 2019-08-21 03:32:[address] [facility] ETHANOL 2019-08-21 03:32:00 [facility] WITH DIFFERENTIAL 2019-08-21 03:32:00 Michael Carpenter [facility] EMERGENCY DEPARTMENT 2019-08-20 06:01:00 Doctor Unassigned, [facility] DOCUMENTS [facility] CT CERVICAL SPINE WO 2019-08-14 00:32:44 [facility] CT HEAD WO CONTRAST 2019-08-14 00:32:44 Lopez Acevedo [facility] XR CHEST 2 VW 2019-08-14 00:25:39 [facility] XR HAND 3+ VW RIGHT 2019-03-03 08:22:02 Anna Marie Diaz [facility] Encounters Start End Encounter Admission Attending Care Care Encounter Source Date/Time Date/Time Type Type Clinicians Facility Department ID 2022-04-[address] [facility] [id number] [place] 22:42:33 [id number] [facility] 2022-03-[address] [facility] [id number] [place] 22:23:43 [id number] [facility] 2022-03-09 Emergency HFD HFD [id number] GAYE - 11:55:17 [place] [facility] ent 2022-01-[address] [facility] [id number] [place] 17:40:51 [id number] [facility] 2021-12-[address] [facility] [id number] [place] 15:34:09 [id number] [facility] 2021-04-20 Outpatient CHRISTUS [facility]STUS [id number] CHRISTU 22:53:11 -[id number] [facility] 2019-09-01 Inpatient HCAPM KAYLEE [id number] [facility] 06:12:00 46 [facility] 2019-08-31 Inpatient HCAPM KAYLEE [id number] [facility] 19:06:00 66 [facility] 2022-03-21 2022-03-21 Outpatient CINDY_STEPHANI_ [facility] [id number] Domenica 00:00:00 00:00:00 [id number] Medica l Group 2022-03-09 2022-03-09 Outpatient CINDY_STEPHANI_ [facility] 577 [id number] [place] 00:00:00 00:00:00 MD Luis [facility] 2022-02-12 2022-02-13 Emergency [facility] [id number] Santana 08:44:00 20:25:00 [facility] 2022-02-12 2022-02-12 Emergency 1 JEANMARIE RAMON [facility] [id number] Santana 08:44:00 08:44:00 [facility] 2022-02-11 2022-02-11 Emergency Emergency [facility] [id number] [facility] 04:57:00 09:50:00 Lukuman 71 2022-02-11 2022-02-11 Emergency [facility] [id number] [facility] 04:57:00 04:57:00 71 2022-02-09 2022-02-10 Emergency E BIRGIT, [facility] M[facility] [id number] [facility] 21:11:00 21:33:00 [facility] 2022-02-09 2022-02-09 Emergency E BIRGIT, M[facility]H MHHH [id number] M[facility] 09:41:00 17:31:00 [facility] 2022-02-07 2022-02-07 Emergency Emergency Guirges, [facility] [id number] [facility] 11:37:00 20:30:00 Hemal 49 2022-02-07 2022-02-07 Emergency [facility] [id number] [facility] 11:37:00 11:37:00 49 2022-02-07 2022-02-07 Emergency Emergency Afuwape, [facility] [id number] SJm 00:06:00 07:50:00 Lukuman 29 2022-02-07 2022-02-07 Emergency Emergency Afuw[place], [facility] [id number] [facility] 00:06:00 00:06:00 Lukuman 29 2022-02-05 2022-02-05 Emergency Emergency Ham, Jose [facility] [id number] [facility] 18:15:00 21:41:00 61 2022-02-05 2022-02-05 Emergency Emergency Guirges, [facility] [id number] SJm 14:52:00 17:19:00 Hemal 27 2022-02-05 2022-02-05 Emergency [facility] [id number] [facility] 14:52:00 14:52:00 27 2022-02-04 2022-02-04 Emergency X TALHA [facility] ERT [id number] Univers 14:23:00 16:58:00 MARIAM ity [facility] 2022-02-04 2022-02-04 Emergency Palencia, TRAUMA [id number] Univers 14:23:00 16:58:00 Mariam CENTER [id number] [id number] [address] 2022-01-30 2022-01-31 Emergency X DAISY MARCOS [facility] ERT [id number] Univers 19:17:00 10:00:00 MARCOS VILLA marlee [facility] 2022-01-30 2022-01-31 Emergency Mariam Palencia TRAUMA 1.2.840 .114 [id number] Univers 19:17:00 10:00:00 Marcos Villa [place] [id number] [place] [id number] [address] 2022-01-26 2022-01-26 Emergency X NANY SON [facility] ERT 1 [id number] Univers 19:15:00 23:37:00 NANY SON itmarlee [facility] 2022-01-26 2022-01-26 Emergency Cindy Atkinson TRAUMA 1.2.840.1 [id number] Univers 19:15:00 23:37:00 Nany Son [place] [id number] [place] [id number] [address] 2022-01-22 2022-01-23 Inpatient X MANUELITO [facility] CATARINO [id number] Univers 00:46:00 17:25:00 HOLLY ity [facility] 2022-01-22 2022-01-23 [facility] Lyle Alberts 1.2.840.1 [id number] Univers 00:46:00 17:25:00 Óscar Ovalle [id number] ity of [facility] 4.2.7.2. 686 [place] Kiko Tatum [id number] [place] [id number] Branch 2022-01-19 2022-01-19 Transition IAN Martinez 1.2.840.114 [id number] Univers 00:00:00 00:00:00 of Care Adonis FREEMAN [id number] ity [place] [id number] [facility] 403 Branch 2022-01-13 2022-01-16 Inpatient X BELÉN, [facility] CATARINO [id number] Univers 18:13:00 17:03:00 JAMES ity of [facility] 2022-01-13 2022-01-16 [facility] Margo Norbert CINTHIA 1.2.840. 114 [id number] Univers 18:13:00 17:03:00 Encounter Nany Son [id number] ity of [facility] 4.2.7.2.686 [place] James Melissa [id number] [place] [address] Branch 2022-01-08 2022-01-08 Emergency X MARIA INES BALLESTEROS [facility] ERT 1 [id number] Univers 04:31:00 07:37:00 MARIA INES BALLESTEROS itmarlee of [facility] 2022-01-08 2022-01-08 Emergency Kalpesh, TRAUMA [id number] Univers 04:31:00 07:37:00 Maria Ines [place] 350.1.13.10 [place] [id number] [facility] 014 Branch 2021-12-05 2021-12-08 Emergency X PERFECTO GUTIERRES [facility] ERT 1 [id number] Univers 02:46:00 18:40:00 PERFECTO GUTIERRES ity of [facility] 2021-12-05 2021-12-08 Emergency Ld Franklin J TRAUMA 1.2.840.1 [id number] Univers 02:46:00 18:40:00 Mariam Hernandez [id number] ity of Perfecto Gutierres 4.2.7.2.686 [place] Lucien Alfaro [id number] [facility] Vipul Barreto [facility] Branch Shyanne Pyle S 2021-11-21 2021-11-22 Emergency X ROBERT STEVENS [facility] ERT [id number] Univers 21:50:00 00:44:00 ity of [facility] 2021-11-21 2021-11-22 Emergency Robert Stevens TRAUMA 1.2.840.114 [id number] Univers 21:50:00 00:44:00 W CENTER 350.1.13.10 it y of 4.2.7.2.686 [facility] [id number] [facility] 014 Branch 2021-09-24 2021-09-24 Emergency X Domitila PATEL [facility] ERT [id number] Univers 00:12:00 04:10:00 ity of [facility] 2021-09-24 2021-09-24 Emergency Amanda [facility] 1.2.840.114 [id number] Univers 00:12:00 04:10:00 Dayana SIMPSON 350.1.13.10 i ty of [place] 4.2.7.2.686 [facility] [id number] [address] 2020-08-03 2020-08-03 Departed CAROLYNN PRADHAN [id number] CHRISTU 15:06:00 15:37:00 Emergency 36 [facility] 2020-04-16 2020-04-16 Emergency Amanda [facility] 1.2.840.114 [id number] Univers 10:38:00 14:15:00 Dayana Simpson 350.1.13.10 i ty of [place] 4.2.7.2.686 [facility] [id number] [address] 2020-04-16 2020-04-16 Emergency X Domitila PATEL [facility] ERT [id number] Univers 10:38:00 10:38:00 ity of [facility] 2019-09-20 2019-09-20 Outpatient [facility] [id number] [place] 00:00:00 00:00:00 Health 2019-08-31 2019-08-31 [facility] MED [id number] [place] 01:49:22 01:49:22 Health 2019-08-20 2019-08-22 Emergency Michael Carpenter TRAUMA 1.2.8 40.114 [id number] 21:07:32 13:58:00 Lucien Alfaro E CENTER [id number] 4.2.7.2.686 [id number] 014 2019-08-20 2019-08-22 Emergency SchMichael jane TRAUMA 1.2.8 40.114 [id number] Univers 21:07:32 13:58:00 Lucien Alfaro E CENTER 350.1.13.10 [place] [id number] [address] 2019-08-20 2019-08-20 Emergency X SCHOENSTEIN [facility] ERT [id number] Univers 21:07:32 21:07:32 , MICHAEL ity [facility] 2019-08-17 2019-08-17 Emergency Chelsea, TRAUMA 1.2.555.139 [id number] 19:59:42 20:28:00 Katye R CENTER [id number] 4.2.7.2.686 [id number] 014 2019-08-17 2019-08-17 Emergency X CHELSEA, [facility] ERT [id number] Univers 19:59:42 20:28:00 KATYE ity [facility] 2019-08-17 2019-08-17 Emergency [place], TRAUMA [id number] Univers 19:59:42 20:28:00 Katye R CENTER 350.1.13.10 [place] [id number] [address] 2019-08-13 2019-08-13 Emergency Morrical, TRAUMA 1.2.840.114 [id number] 17:35:49 19:40:00 Lopez O CENTER 350.1.13.10 4.2.7.2.686 [id number] 014 2019-08-13 2019-08-13 Emergency X MORRICAL, [facility] ERT [id number] Univers 17:35:49 19:40:00 LOPEZ ity [facility] 2019-08-13 2019-08-13 Emergency Morrical, TRAUMA 1.2.840.114 [id number] [facility] 17:35:49 19:40:00 Lopez [facility] 350.1.13.10 [place] [id number] [facility] 014 Branch 2019-03-03 2019-03-03 Emergency [facility] 1.2.772.615 [id number] 02:40:06 03:52:00 Anna Marie Simpson 350.1.13.10 [place] 4.2.7.2.686 [place] [id number] [facility] 2019-03-03 2019-03-03 Emergency [facility] [id number] [id number] [facility] 02:40:06 03:52:00 Anna Marie Simpson 350.1.13.10 ity of [place] 4.2.7.2.686 [facility] [place] [id number] [facility] 084 Branch 2019-02-17 2019-02-17 Emergency [facility] [id number] Max 07:34:17 07:34:17 Health 2019-02-17 2019-02-17 Emergency [facility] MED [id number] Max 02:21:51 02:21:51 Health 2019-01-21 2019-01-31 Inpatient 1 En Cota [facility] PSY [id number] St. 10:32:00 13:54:00 En C[place] [facility] 2019-01-21 2019-01-21 [facility] 1.2.840.114 [id number] 15:06:32 23:59:00 Encounter En SALMON 350.1.13.10 MEDICAL 4.2.7.2.686 CENTER [id number] [facility] 2019-01-21 2019-01-21 [facility] 12.840.114 [id number] [facility] 15:06:32 23:59:00 Encounter En TARIQS 350.1.13.10 ity of [place] CENTER [id number] [facility] 060 Branch 2018-11-01 2018-11-09 Inpatient 1 En Cota [facility] PSY [id number] St. 14:32:00 13:51:00 En Cota [facility] Results Test Description Test Time Test Comments Results Result Comments Source SARS-CoV-2 RNA Resp Ql VANE+probe 2022-02-12 14:18:35 Test Item Value Reference Range Interpretation Comme nts Hospitalized? (test code = Yes 33990-8) ICU? (test code = 49107-5) No Symptomatic as defined by CDC? No (test code = 80283-3) Employed in Healthcare? (test No code = 36530-1) Resident in a congregate care No setting (including nursing homes, residential care for people with intellectual and developmental disabilities, psychiatric treatment facilities, group homes, board and care homes, homeless longterm, foster care or other): (test code = 93989-8) SARS-CoV-2 RNA Resp Ql NOT DETECTED Not Detected INTER PRETATION: No VANE+probe (test [place] = [place] [address]-2) SARS-CoV-2 [place] navirus (COVID-19) were present in [...] its performance characteristics were verified by the [facility] molecular diagnostics laboratory and is authorized for clinical diagnostic use. This laboratory is certified under the Clinical Laboratory Improvement Amendments (CLIA) as qualified to perform high complexity clinical laboratory testing.LEO Urinalysis Rflx Cult/Ngyqe4044-73-64 05:36:00 Test Item Value Reference Range Interpretation Comments Color,Urine (test code = UCOL) Yellow Yellow Clarity,Urine (test code = Clear Clear UCLAR) Ph, Urine (test code = UPH) 7.0 5.0-9.0 N Specific [place],Urine (test 1.025 1.005-1.030 N code = USG) [...] = ULEU) UF REFLEXComplete Blood Count Auto [id number] 05:36:00 Test Item Value Reference Range Interpretation [...] (test code = NRBCP) 0 % Urine Geysrvpmufz5508-98-17 05:36:00 Test Item Value Reference Range Interpretation Comments RBC,Urine (test code = URBC.DIRECTOR HOUSEKEEPING) 0-2 /HPF 0-2 WBC,Urine (test code = UWBC.DIRECTOR HOUSEKEEPING) 0-5 /HPF 0-5 Bacteria,Urine (test code = Few /HPF None Seen A UBACT.DIRECTOR HOUSEKEEPING) Squamous Epithelial Cell,Urine (test 0-5 /HPF 0-5 code = USQEPI.DIRECTOR HOUSEKEEPING) Amorphous Crystals,Urine (test code Few /HPF None Seen A = UAMSE) Hyaline Casts,Urine (test code = 0-2 None Seen A UHYALC.XX) Granular Casts,Urine (test code = 0-1 None Seen A UGRANC.XX) UF REFLEXComprehensive Metabolic Runez8736-54-40 05:36:00 Test Item Value Reference Range Interpretation [...] 74 U/L 46-116 N = ALP) Ethanol Bdfof8256-43-65 05:36:00 Test Item Value Reference Range Interpretation Comments Ethanol (test code 3 mg/dL The pharm acological = ETOH) response to blo od alcohol levels mayvary from individual to i ndividual. The fatal giovanna ntrationhas been reported t o be >400mg/dL. Drug Screen,[id number] 05:36:00 Test Item Value Reference Range Interpretation [...] (test code = UPROP) Coronavirus PCR, COVID19 Qxixw4614-21-78 05:36:00 Test Item Value Reference Range Interpretation Comments Coronavirus PCR, COVID19 Rapid (test code = SARSCOV2) Coronavirus PCR, COVID19 Reference Range: Rapid (test code = Negative BYWLRIO40.1) SARS-CoV-2 PCR Result: Negative by RT-PCR (test code = SARS-CoV-2 PCR Result:) COVID-19 Status: AsymptomaticUA, Urinalysis Rflx Cult/[id number] 12:22:00 Test Item Value Reference Range Interpretation Comments Color,Urine (test code = UCOL) Yellow Yellow Clarity,Urine (test code = Clear Clear UCLAR) Ph, Urine (test code = UPH) 5.5 5.0-9.0 N Specific [place],Urine (test 1.015 1.005-1.030 N code = USG) [...] Negative code = ULEU) UF REFLEXUF REFLEXUrine Iwspsiyysqb2160-47-05 12:22:00 Test Item Value Reference Range Interpretation Comments RBC,Urine (test code = URBCUF) None Seen /HPF 0-2 WBC,Urine (test code = UWBCUF) 0-5 /HPF 0-5 Epithelial Cell,Urine (test 0-5 /HPF 0-5 code = UECUF) Casts,Urine (test code = 0-5 /LPF None Seen UCASTUF) Bacteria,Urine (test code = None Seen /hpf None Seen UBACTUF) UF REFLEXUF REFLEXDrug Screen,Kjdeq8739-52-07 12:22:00 Test Item Value Reference Range Interpretation [...] code = UPROP) Complete Blood Count Auto Yuij4295-10-45 11:59:00 Test Item Value Reference Range Interpretation [...] code = NRBCP) 0 % Comprehensive Metabolic Lbxrc1582-29-45 11:59:00 Test Item Value Reference Range Interpretation [...] 68 U/L 46-116 N = ALP) Ethanol [id number] 11:59:00 Test Item Value Reference Range Interpretation Comments Ethanol (test code < 3 mg/dL The pharm acological = ETOH) response to blo od alcohol levels mayvary from individual to i ndividual. The fatal giovanna ntrationhas been reported t o be >400mg/dL. UA, Urinalysis Rflx Cult/Tjvgj1253-22-09 04:55:00 Test Item Value Reference Range Interpretation Comments Color,Urine (test code = UCOL) Yellow Yellow Clarity,Urine (test code = Clear Clear UCLAR) Ph, Urine (test code = UPH) 5.5 5.0-9.0 N Specific [place],Urine (test 1.010 1.005-1.030 N code = USG) [...] Negative mg/dL Negative code = ULEU) Drug Screen,Grcdy2499-77-49 04:55:00 Test Item Value Reference Range Interpretation [...] Negative Urine (test code = UPROP) Lactic Tztq3648-89-65 04:50:00 Test Item Value Reference Range Interpretation Comments Lactic Acid (test code = LACTIC) 1.0 mmol/L 0.5-2.0 N Troponin I High Zbehrdzrnvn0937-33-94 04:40:00 Test Item Value Reference Range Interpretation [...] evaluated in conjunctionwith clinical findin gs. Creatine Ezlljq8198-12-80 01:15:00 Test Item Value Reference Range Interpretation Comments Creatine Kinase (test code = CK) 477 U/L 46-171 H Troponin I High Rwcinhwkneq0349-83-92 01:15:00 Test Item Value Reference Range Interpretation [...] evaluated in conjunctionwith clinical findin gs. Lactic Rpsc4648-39-00 01:15:00 Test Item Value Reference Range Interpretation Comments Lactic Acid (test 4.5 mmol/L 0.5-2.0 HH Critical v alue called code = LACTIC) to walter schuster ck by amber marcus[] on: 02/07/22 at 021 4by RDB11. Lactic Acid Collected YProthrombin Time [id number] 01:15:00 Test Item Value Reference Range Interpretation [...] 3.5 Mechanical Hear t, Intracardiac Thrombosis. Blood Orqqxnd3961-12-66 01:15:00 Test Item Value Reference Range Interpretation Comments Blood Culture (test NO GROWTH AFTER 5 DAYS code = BC) Blood Bvtpqve0555-49-97 01:15:00 Test Item Value Reference Range Interpretation Comments Blood Culture (test NO GROWTH AFTER 5 DAYS code = BC) Complete Blood Count Auto Bbyd0693-09-37 00:39:00 Test Item Value Reference Range Interpretation [...] code = NRBCP) 0 % Comprehensive Metabolic Yjzbp4000-16-02 00:39:00 Test Item Value Reference Range Interpretation [...] 73 U/L 46-116 N = ALP) Ethanol [id number] 00:39:00 Test Item Value Reference Range Interpretation Comments Ethanol (test code < 3 mg/dL The pharm acological = ETOH) response to blo od alcohol levels mayvary from individual to i ndividual. The fatal giovanna ntrationhas been reported t o be >400mg/dL. Coronavirus PCR, COVID19 Sikuh5495-08-55 00:20:00 Test Item Value Reference Range Interpretation Comments Coronavirus PCR, For use under Emergency COVID19 Rapid (test Use Authorization (EUA) code = SARSCOV2) only. Coronavirus PCR, Reference Range: COVID19 Rapid (test Negative code = UZJVQDQ59.1) SARS-CoV-2 PCR Result: Negative by RT-PCR (test code = SARS-CoV-2 PCR Result:) COVID-19 Status: AsymptomaticUA, Urinalysis Rflx Cult/Ayvsy1985-78-60 15:17:00 Test Item Value Reference Range Interpretation Comments Color,Urine (test code = UCOL) Yellow Yellow Clarity,Urine (test code = Clear Clear UCLAR) Ph, Urine (test code = UPH) 6.0 5.0-9.0 N Specific [place],Urine (test >= 1.030 1.005-1.030 N code = [...] Negative code = ULEU) UF REFLEXUF REFLEXUrine Lkpuybjwxtz4138-45-53 15:17:00 Test Item Value Reference Range Interpretation Comments RBC,Urine (test code = URBCUF) 0-2 /HPF 0-2 WBC,Urine (test code = UWBCUF) 6-10 /HPF 0-5 A Epithelial Cell,Urine (test None Seen /HPF 0-5 code = UECUF) Casts,Urine (test code = None Seen /LPF None Seen UCASTUF) Bacteria,Urine (test code = None Seen /hpf None Seen UBACTUF) UF REFLEXUF REFLEXComprehensive Metabolic Mbmrk8487-25-24 15:17:00 Test Item Value Reference Range Interpretation [...] 69 U/L 46-116 N = ALP) Ethanol Buclz1314-81-82 15:17:00 Test Item Value Reference Range Interpretation Comments Ethanol (test code < 3 mg/dL The pharm acological = ETOH) response to blo od alcohol levels mayvary from individual to i ndividual. The fatal giovanna ntrationhas been reported t o be >400mg/dL. Coronavirus PCR, COVID19 [id number] 15:17:00 Test Item Value Reference Range Interpretation Comments Coronavirus PCR, For use under Emergency COVID19 Rapid (test Use Authorization (EUA) code = SARSCOV2) only. Coronavirus PCR, Reference Range: COVID19 Rapid (test Negative code = TTTEGTT44.1) SARS-CoV-2 PCR Result: Negative by RT-PCR (test code = SARS-CoV-2 PCR Result:) COVID-19 Status: AsymptomaticComplete Blood Count Auto [id number] 15:17:00 Test Item Value Reference Range Interpretation [...] (test code = NRBCP) 0 % Drug Screen,Rxwwa5811-20-66 15:17:00 Test Item Value Reference Range Interpretation [...] Urine (test code = UPROP) Thyroid Stimulating Jevqwcw7463-19-26 02:36:01 Test Item Value Reference Range Interpretation Comments TSH (test code = See_Comment [Automated message] [id number]) The system [employer] generated this result transmitted ref erence range: 0.45 - 4 .70 mIU/L. The refe rence range was not u sed to interpret this result as normal/abnor mal. Lab Interpretation (test Normal code = 31310-8) [facility] with Cznsufisxbsy2272-70-84 02:18:20 Test Item Value Reference Range Interpretation Comments WBC (test code = See_Comment H [Automated 4264-2) message] The system which generated this result transmit lázaro reference range : 4.20 - 10.70 10*3/?L. The reference range was not used to interpret this result as normal/abnormal . RBC (test code = See_Comment [Automated 279-8) message] The system which generated this result [...] RDW-SD (test code = 41.8 fL 38.5-51.6 04520-2) RDW-CV (test code = 13.5 % 12.1-15.4 788-0) PLT (test code = See_Comment H [Automated 777-3) message] The system which generated this result transmit lázaro reference range : 150 - 328 10*3/ ?L. The reference range was not u sed to interpret th is result as normal/abnormal . MPV (test code = 10.9 fL 9.8-13 99973-3) NRBC/100 WBC (test See_Comment [Automat ed code = 3859337700) message] The system which generated this result transmit lázaro reference range : 0.0 - 10.0 /100 WBCs. The reference range was not used to interpret this result as normal/abnormal . NRBC x10^3 (test code See_Comment [Auto mated = 1331700035) message] The system which generated this result transmit lázaro reference range : 10*3/?L. The reference range was not used to interpret this result as normal/abnormal . GRAN MAT (NEUT) % 89.5 % (test code = 770-8) IMM GRAN % (test code 0.60 % = 5197007441) LYMPH % (test code = 4.7 % 736-9) MONO % (test code = 4.9 % 5905-5) EOS % (test code = 0.0 % 713-8) BASO % (test code = 0.3 % 706-2) GRAN MAT x10^3(ANC) 15.88 10*3/uL 1.99-6.95 H (test code = 4605580438) IMM GRAN x10^3 (test 0.11 10*3/uL 0-0.06 H code = 1877389208) LYMPH x10^3 (test code 0.83 10*3/uL 1.09-3.23 L = 731-0) MONO x10^3 (test code 0.87 10*3/uL 0.36-1.02 = 742-7) EOS x10^3 (test code = 0.06-0.53 L 711-2) BASO x10^3 (test code 0.06 10*3/uL 0.01-0.09 = 704-7) Lab Interpretation Abnormal (test code = 00272-4) [facility] 02:11:53 SALICYLATE<10mg/L01/30/2022 9:11 PM [facility] LABORATORY SERVICESTherapeutic Range: ? Analgesic and Antipyretic Use ? 20-100 mg/L ? ? Anti- Inflammatory Use ? 100-250 mg/L Toxic Range: ? Greater than 300 mg/LUnThe [facility] Center of Southeast TexasEthanol (ETOH) Pgqmm8507-03-29 02:11:48ALCOHOL<10mg/dL01/30/2022 9:11 PM [facility] LABORATORY SERVICESToxic Greater than or equal to 80 mg/dL. NOTE: Whole blood values are approximately 10% to 15% lower than serum and plasma.[facility] HospitalAcetaminophen2022-08-06 02:07:57 Test Item Value Reference Range Interpretation Comments ACETAMINOP (test code = 10-30 L 1169309766) JAYLON (test code = JAYLON) Toxic: Greater than 200 ug/mL @ 4 hour post ingestion or greater than 50 ug/mL @ 12 hour post ingestion Lab Interpretation (test Abnormal code = 81067-5) [facility] HospitalComprehensive Metabolic Panel (08195) 2022-01-31 02:03:55 Test Item Value Reference Range Interpretation Comments NA (test code = 143 mmol/L 135-145 4214476129) K (test code = 4.7 mmol/L 3.5-5 4198291495) CL (test code = 108 mmol/L 98-108 1652213913) CO2 TOTAL (test code = 21 mmol/L 23-31 L 2126207364) AGAP (test code = 2-16 5846097472) BUN (test code = 16 mg/dL 7-23 9764663052) GLUCOSE (test code = 119 mg/dL 70-110 H 5527252356) CREATININE (test code = 1.65 mg/dL 0.6-1.25 H 0418872784) TOTAL BILI (test code = 0.6 mg/dL 0.1-1.4 6201442617) CALCIUM (test code = 10.4 mg/dL 8.6-10.6 9213059901) T PROTEIN (test code = 9.1 g/dL 6.3-8.2 H 1847673941) ALBUMIN (test code = 5.7 g/dL 3.5-5 H 1505860518) ALK PHOS (test code = 92 U/L 34-122 0291112597) ALTv (test code = 21 U/L 5-50 1742-6) AST(SGOT) (test code = 31 U/L 13-40 2390514365) eGFR (test code = mL/min/1.73m2 6184262499) JAYLON (test code = JAYLON) Association of [...] tests). Lab Interpretation Abnormal (test code = 69372-9) [facility] HospitalCreatine Wslwpl5351-39-17 02:03:55 Test Item Value Reference Range Interpretation Comments CK (test code = 0191494130) 531 U/L 33-194 H Lab Interpretation (test code = Abnormal 72318-5) [facility] HospitalCOMP. METABOLIC PANEL (58673)2022-01-27 03:11:03 Test Item Value Reference Range Interpretation Comments NA (test code = 140 mmol/L 135-145 7588940359) K (test code = 4.7 mmol/L 3.5-5 2480110407) CL (test code = 105 mmol/L 98-108 0438559668) CO2 TOTAL (test code 28 mmol/L 23-31 = 5260671268) AGAP (test code = 2-16 4889664514) BUN (test code = 11 mg/dL 7-23 1610321891) GLUCOSE (test code = 93 mg/dL 70-110 8174297448) CREATININE (test code 1.14 mg/dL 0.6-1.25 = 6904591017) TOTAL BILI (test code 0.3 mg/dL 0.1-1.1 = 2998780758) CALCIUM (test code = 9.2 mg/dL 8.6-10.6 4658721124) T PROTEIN (test code 7.4 g/dL 6.3-8.2 = 4798630208) ALBUMIN (test code = 4.7 g/dL 3.5-5 5013125432) ALK PHOS (test code = 84 U/L 34-122 8039374959) ALTv (test code = 28 U/L 5-50 1742-6) AST(SGOT) (test code 31 U/L 13-40 = 0915387222) eGFR (test code = mL/min/1.73m2 3520207584) JAYLON (test code = JAYLON) Association of [...] or urine or abnormalities in imaging tests). [facility] HospitalCREATINE SCAHHG4786-28-80 03:11:03 Test Item Value Reference Range Interpretation Comments CK (test code = 5788877961) 453 U/L 33-194 H Lab Interpretation (test code = Abnormal 97456-3) [facility] HospitalLIPASE2022-08-02 03:11:03 Test Item Value Reference Range Interpretation Comments LIPASE (test code = 0811549501) 100 U/L 0-220 Lab Interpretation (test code = Normal 36398-2) [facility] WITH NKUE2162-05-02 02:54:01 Test Item Value Reference Range Interpretation Comments WBC (test code = See_Comment [Automated 8590-2) message] The sy stem which generated this result transmitted reference range : 4.20 - 10.70 10*3/?L. The reference range was not used to interpret this result as normal/abnormal . RBC (test code = See_Comment [Automated 968-8) message] The sy stem which generated this [...] RDW-SD (test code = 42.4 fL 38.5-51.6 12919-1) RDW-CV (test code = 13.1 % 12.1-15.4 788-0) PLT (test code = See_Comment H [Automated 777-3) message] The sy stem which generated this result transmitted reference range : 150 - 328 10*3/ ?L. The reference r daja was not used to interpret this result as normal/abnormal . MPV (test code = 10.9 fL 9.8-13 05094-2) NRBC/100 WBC (test See_Comment [Automat ed code = 5812387273) message] The system which generated this result transmitted reference range : 0.0 - 10.0 /100 WBCs. The refer ence range was not u sed to interpret th is result as normal/abnormal . NRBC x10^3 (test code See_Comment [Auto mated = 7931943272) message] The s ystem which generated this result transmitted reference range : 10*3/?L. The reference range was not used to interpret this result as normal/abnormal . GRAN MAT (NEUT) % 60.6 % (test code = 770-8) IMM GRAN % (test code 0.20 % = 6563874933) LYMPH % (test code = 31.9 % 736-9) MONO % (test code = 5.1 % 5905-5) EOS % (test code = 1.4 % 713-8) BASO % (test code = 0.8 % 706-2) GRAN MAT x10^3(ANC) 5.72 10*3/uL 1.99-6.95 (test code = 1870847992) IMM GRAN x10^3 (test 0-0.06 code = 4611354916) LYMPH x10^3 (test code 3.01 10*3/uL 1.09-3.23 = 731-0) MONO x10^3 (test code 0.48 10*3/uL 0.36-1.02 = 742-7) EOS x10^3 (test code = 0.13 10*3/uL 0.06-0.53 711-2) BASO x10^3 (test code 0.08 10*3/uL 0.01-0.09 = 704-7) Lab Interpretation Abnormal (test code = 03513-6) [facility] HospitalMYOGLOBIN GTFHP4443-81-21 03:50:24 Test Item Value Reference Range Interpretation Comments MYOGLOB S (test code 266.9 ng/mL See_Comment H [Autom ated = 6406786007) message] The system which generated this result transmitted reference range : <=121.0. The reference range was not used to interpret this result as normal/abnormal . JAYLON (test code = JAYLON) Biotin has been reported to cause a negative bias, interpret results relative to patient's use of biotin. Lab Interpretation Abnormal (test code = 26419-3) [facility] HospitalCREATINE [id number] 22:44:03 Test Item Value Reference Range Interpretation Comments CK (test code = 1219617248) 3562 U/L 33-194 H Slight hemolysis Lab Interpretation (test Abnormal code = 45928-3) [facility] HospitalACETAMINOPHEN2022-07-28 06:53:54 Test Item Value Reference Range Interpretation Comments ACETAMINOP (test code = 10-30 L 3866079383) JAYLON (test code = JAYLON) Toxic: Greater than 200 ug/mL @ 4 hour post ingestion or greater than 50 ug/mL @ 12 hour post ingestion Lab Interpretation (test Abnormal code = 25696-9) [facility] HospitalSALICYLATE2022-07-28 06:53:34 SALICYLATE<10mg/L01/22/2022 1:53 AM CDTUTMB LABORATORY SERVICESTherapeutic Range: ? Analgesic and Antipyretic Use ? 20-100 mg/L ? ? Anti- Inflammatory Use ? 100-250 mg/L Toxic Range: ? Greater than 300 mg/LUnThe Medical Center of Southeast TexasETHANOL2022-07-28 06:53:29ALCOHOL<10mg/dL01/22/2022 1:53 AM CDTUTMB LABORATORY SERVICESToxic Greater than or equal to 80 mg/dL. NOTE: Whole blood values are approximately 10% to 15% lower than serum and plasma.[facility] HospitalCOM METABOLIC PANEL (67898)2022-01-22 06:49:56 Test Item Value Reference Range Interpretation Comments NA (test code = 143 mmol/L 135-145 0609311075) K (test code = 4.4 mmol/L 3.5-5 2767038818) CL (test code = 103 mmol/L 98-108 9899781236) CO2 TOTAL (test code = 25 mmol/L 23-31 6488704937) AGAP (test code = 2-16 6909284984) BUN (test code = 16 mg/dL 7-23 4256638873) GLUCOSE (test code = 138 mg/dL 70-110 H 6999856059) CREATININE (test code = 1.23 mg/dL 0.6-1.25 9951025907) TOTAL BILI (test code = 0.5 mg/dL 0.1-1.0 4651134130) CALCIUM (test code = 10.0 mg/dL 8.6-10.6 7560849000) T PROTEIN (test code = 8.3 g/dL 6.3-8.2 H 2744457812) ALBUMIN (test code = 5.3 g/dL 3.5-5 H 2906171055) ALK PHOS (test code = 79 U/L 34-122 2034183840) ALTv (test code = 44 U/L 5-50 1742-6) AST(SGOT) (test code = 36 U/L 13-40 0970284168) eGFR (test code = mL/min/1.73m2 4996188930) JAYLON (test code = JAYLON) Association of [...] tests). Lab Interpretation Abnormal (test code = 27712-0) [facility] HospitalCREATINE HCZJQK5002-00-22 06:49:56 Test Item Value Reference Range Interpretation Comments CK (test code = 9417586703) 602 U/L 33-194 H Lab Interpretation (test code = Abnormal 13152-3) [facility] HospitalCBC WITH AYOW1347-03-73 06:33:58 Test Item Value Reference Range Interpretation Comments WBC (test code = See_Comment H [Automated 9290-2) message] The system which generated this result transmit lázaro reference range : 4.20 - 10.70 10*3/?L. The reference range was not used to interpret this result as normal/abnormal . RBC (test code = See_Comment [Automated 839-8) message] The system which generated this result [...] RDW-SD (test code = 42.5 fL 38.5-51.6 16529-6) RDW-CV (test code = 13.3 % 12.1-15.4 788-0) PLT (test code = See_Comment H [Automated 777-3) message] The system which generated this result transmit lázaro reference range : 150 - 328 10*3/ ?L. The reference range was not u sed to interpret th is result as normal/abnormal . MPV (test code = 10.9 fL 9.8-13 12492-0) NRBC/100 WBC (test See_Comment [Automat ed code = 1337499470) message] The system which generated this result transmit lázaro reference range : 0.0 - 10.0 /100 WBCs. The reference range was not used to interpret this result as normal/abnormal . NRBC x10^3 (test code See_Comment [Auto mated = 6564772274) message] The system which generated this result transmit lázaro reference range : 10*3/?L. The reference range was not used to interpret this result as normal/abnormal . GRAN MAT (NEUT) % 88.1 % (test code = 770-8) IMM GRAN % (test code 0.70 % = 8985454851) LYMPH % (test code = 6.3 % 736-9) MONO % (test code = 4.5 % 5905-5) EOS % (test code = 0.0 % 713-8) BASO % (test code = 0.4 % 706-2) GRAN MAT x10^3(ANC) 13.61 10*3/uL 1.99-6.95 H (test code = 4733746749) IMM GRAN x10^3 (test 0.11 10*3/uL 0-0.06 H code = 2277647029) LYMPH x10^3 (test code 0.98 10*3/uL 1.09-3.23 L = 731-0) MONO x10^3 (test code 0.70 10*3/uL 0.36-1.02 = 742-7) EOS x10^3 (test code = 0.06-0.53 L 711-2) BASO x10^3 (test code 0.06 10*3/uL 0.01-0.09 = 704-7) Lab Interpretation Abnormal (test code = 45166-5) [facility] HospitalCREATINE LBLRKG2028-71-94 20:39:33 Test Item Value Reference Range Interpretation Comments CK (test code = 7098925499) 8585 U/L 33-194 H Lab Interpretation (test code = Abnormal 87528-5) [facility] HospitalCREATINE [id number] 02:54:18 Test Item Value Reference Range Interpretation Comments CK (test code = 9283990516) 29855 U/L 33-194 H Lab Interpretation (test code = Abnormal 44271-7) [facility] HospitalCREATINE [id number] 20:01:07 Test Item Value Reference Range Interpretation Comments CK (test code = 33-194 H 3282687808) JAYLON (test code = JAYLON) CK is approximately 19,916 U/L with extended dilution Lab Interpretation Abnormal (test code = 66099-9) [facility] METABOLIC PANEL (NA, K, CL, CO2, GLUCOSE, BUN, CREATININE, CA)2022-01-14 18:24:47 Test Item Value Reference Range Interpretation Comments NA (test code = 135 mmol/L 135-145 1867792103) K (test code = 4.0 mmol/L 3.5-5 9318389005) CL (test code = 101 mmol/L 98-108 1776095105) CO2 TOTAL (test code = 27 mmol/L 23-31 0961532863) AGAP (test code = 2-16 3791221830) BUN (test code = 28 mg/dL 7-23 H 6800485916) GLUCOSE (test code = 93 mg/dL 70-110 9188951431) CREATININE (test code = 1.19 mg/dL 0.6-1.25 9212732373) CALCIUM (test code = 8.3 mg/dL 8.6-10.6 L 5414192750) eGFR (test code = mL/min/1.73m2 3535457386) JAYLON (test code = JAYLON) Association of [...] tests). Lab Interpretation Abnormal (test code = 62385-1) [facility] HospitalCreatine Qptvpu3875-76-83 08:14:23 Test Item Value Reference Range Interpretation Comments CK (test code = 33-194 H CK is approx imately 7956823062) 31,635 U/L with extended diluti on. Lab Interpretation Abnormal (test code = 27667-5) [facility] HospitalSalicylate2022-07-20 06:12:12 SALICYLATE<10mg/L01/14/2022 1:12 AM [facility] LABORATORY SERVICESTherapeutic Range: ? Analgesic and Antipyretic Use ? 20-100 mg/L ? ? Anti- Inflammatory Use ? 100-250 mg/L Toxic Range: ? Greater than 300 mg/LUnThe Medical Center of Southeast TexasEthanol (ETOH) Wfjyk1525-00-51 06:10:57ALCOHOL<10mg/dL01/14/2022 1:10 AM [facility] LABORATORY SERVICESToxic Greater than or equal to 80 mg/dL. NOTE: Whole blood values are approximately 10% to 15% lower than serum and plasma.[facility] HospitalAcetaminophen2022-07-20 05:35:31 Test Item Value Reference Range Interpretation Comments ACETAMINOP (test code = 10-30 L 1195171231) JAYLON (test code = JAYLON) Toxic: Greater than 200 ug/mL @ 4 hour post ingestion or greater than 50 ug/mL @ 12 hour post ingestion Lab Interpretation (test Abnormal code = 83382-6) [facility] HospitalComprehensive Metabolic Panel (00042) 2022-01-14 05:24:54 Test Item Value Reference Range Interpretation Comments NA (test code = 130 mmol/L 135-145 L 2906153709) K (test code = 4.4 mmol/L 3.5-5 Slight 6059301771) hemolysis CL (test code = 92 mmol/L 98-108 L 1740201949) CO2 TOTAL (test code 22 mmol/L 23-31 L = 6372896117) AGAP (test code = 2-16 3784377937) BUN (test code = 46 mg/dL 7-23 H Slight 2362676737) hemolysis GLUCOSE (test code = 106 mg/dL 70-110 2698369830) CREATININE (test code 2.89 mg/dL 0.6-1.25 H = 8899847782) TOTAL BILI (test code 1.5 mg/dL 0.1-1.1 H = 4083091911) CALCIUM (test code = 9.9 mg/dL 8.6-10.6 1101689076) T PROTEIN (test code 8.9 g/dL 6.3-8.2 H = 6402942228) ALBUMIN (test code = 5.6 g/dL 3.5-5 H 8349915070) ALK PHOS (test code = 76 U/L 34-122 Slight 0794736669) hemolysis ALTv (test code = 116 U/L 5-50 H 1742-6) AST(SGOT) (test code 468 U/L 13-40 H Slight = 0862967947) hemolysis eGFR (test code = mL/min/1.73m2 5264604753) JAYLON (test code = JAYLON) Association of [...] tests). Lab Interpretation Abnormal (test code = 38339-5) [facility] with Rmvoxzzqczao1875-23-38 05:05:30 Test Item Value Reference Range Interpretation Comments WBC (test code = See_Comment H [Automated 5845-2) message] The system which generated this result transmit lázaro reference range : 4.20 - 10.70 10*3/?L. The reference range was not used to interpret this result as normal/abnormal . RBC (test code = See_Comment [Automated 200-8) message] The system which generated this result [...] RDW-SD (test code = 41.7 fL 38.5-51.6 17453-8) RDW-CV (test code = 13.4 % 12.1-15.4 788-0) PLT (test code = See_Comment [Automated 777-3) message] The system which generated this result transmit lázaro reference range : 150 - 328 10*3/ ?L. The reference range was not u sed to interpret th is result as normal/abnormal . MPV (test code = 11.1 fL 9.8-13 99245-9) NRBC/100 WBC (test See_Comment [Automat ed code = 4481940504) message] The system which generated this result transmit lázaro reference range : 0.0 - 10.0 /100 WBCs. The reference range was not used to interpret this result as normal/abnormal . NRBC x10^3 (test code See_Comment [Auto mated = 7802120460) message] The system which generated this result transmit lázaro reference range : 10*3/?L. The reference range was not used to interpret this result as normal/abnormal . GRAN MAT (NEUT) % 66.5 % (test code = 770-8) IMM GRAN % (test code 0.30 % = 4045920017) LYMPH % (test code = 24.2 % 736-9) MONO % (test code = 7.5 % 5905-5) EOS % (test code = 0.9 % 713-8) BASO % (test code = 0.6 % 706-2) GRAN MAT x10^3(ANC) 10.46 10*3/uL 1.99-6.95 H (test code = 6893603817) IMM GRAN x10^3 (test 0.05 10*3/uL 0-0.06 code = 4944295819) LYMPH x10^3 (test code 3.81 10*3/uL 1.09-3.23 H = 731-0) MONO x10^3 (test code 1.18 10*3/uL 0.36-1.02 H = 742-7) EOS x10^3 (test code = 0.14 10*3/uL 0.06-0.53 711-2) BASO x10^3 (test code 0.10 10*3/uL 0.01-0.09 H = 704-7) Lab Interpretation Abnormal (test code = 29648-8) [facility] Test Item Value Reference Range Interpretation Comments ALCOHOL (test code = <10 mg/dL 9537585470) JAYLON (test code = Toxic Greater than or JAYLON) equal to 80 mg/dL. NOTE: Whole blood values are approximately 10% to 15% lower than serum and plasma. [facility] (IM[facility]ASSAY) - COMPREHENSIVE DRUG [id number] 09:30:14 Test Item Value Reference Range Interpretation Comments CHERI S (test code = Negative Negative 6328145326) BENZO S (test code = Negative Negative 6373109058) TRICYCLIC (test code = Negative Negative 8230776041) JAYLON (test code = JAYLON) Serum Drug Screen Cutoff Ranges Barbiturates ? ? - 3 mcg/mLBenzodiazepines ?- 50 ng/mLTCA ?- 300 ng/mL Test developed and characteristics determined by [facility] Laboratory Services. The results are to be used only for medical (i.e., treatment) purposes. Unconfirmed screening results must not be used for non-medical purposes (e.g., employment testing, legal testing). Lab Interpretation Normal (test code = 89598-6) [facility]COM[facility]OLIC PANEL (04745)2021-12-05 09:18:49 Test Item Value Reference Range Interpretation Comments NA (test code = 138 mmol/L 135-145 9247698636) K (test code = 4.1 mmol/L 3.5-5.0 8994456220) CL (test code = 102 mmol/L 98-108 3363986029) CO2 TOTAL (test code = 22 mmol/L 23-31 L 4481640538) AGAP (test code = 2-16 6794048221) BUN (test code = 8 mg/dL 7-23 8930038848) GLUCOSE (test code = 168 mg/dL 70-110 H 2490318056) CREATININE (test code = 0.96 mg/dL 0.60-1.25 5256039630) TOTAL BILI (test code = 0.5 mg/dL 0.1-1.5 7461779478) CALCIUM (test code = 9.9 mg/dL 8.6-10.6 1800303963) T PROTEIN (test code = 8.9 g/dL 6.3-8.2 H 5550641664) ALBUMIN (test code = 5.5 g/dL 3.5-5.0 H 6603345393) ALK PHOS (test code = 81 U/L 34-122 8498341594) ALTv (test code = 21 U/L 5-50 1742-6) AST(SGOT) (test code = 28 U/L 13-40 4045725791) eGFR (test code = mL/min/1.73m2 1524738460) JAYLON (test code = JAYLON) Association of [...] tests). Lab Interpretation Abnormal (test code = 34483-3) [facility] HospitalCREATINE [id number] 09:18:09 Test Item Value Reference Range Interpretation Comments CK (test code = 4732868955) 348 U/L 33-194 H Lab Interpretation (test code = Abnormal 40059-0) [facility] WITH [id number] 08:58:30 Test Item Value Reference Range Interpretation [...] RDW-SD (test code = 39.5 fL 38.5-51.6 97263-0) RDW-CV (test code = 13.0 % 12.1-15.4 788-0) PLT (test code = See_Comment [Automated 777-3) message] The system which generated this result transmit lázaro reference range : 150 - 328 10*3/ ?L. The reference range was not u sed to interpret th is result as normal/abnormal . MPV (test code = 10.7 fL 9.8-13.0 55232-4) NRBC/100 WBC (test See_Comment [Automat ed code = 6053879674) message] The system which generated this result transmit lázaro reference range : 0.0 - 10.0 /100 WBCs. The reference range was not used to interpret this result as normal/abnormal . NRBC x10^3 (test code <0.01 See_Comment [Auto mated = 8106611869) message] The system which generated this result transmit lázaro reference range : 10*3/?L. The reference range was not used to interpret this result as normal/abnormal . GRAN MAT (NEUT) % 84.9 % (test code = 770-8) IMM GRAN % (test code 0.40 % = 8914992870) LYMPH % (test code = 9.2 % 736-9) MONO % (test code = 5.2 % 5905-5) EOS % (test code = 0.0 % 713-8) BASO % (test code = 0.3 % 706-2) GRAN MAT x10^3(ANC) 11.66 10*3/uL 1.99-6.95 H (test code = 4480458854) IMM GRAN x10^3 (test 0.06 10*3/uL 0.00-0.06 code = 7336953286) LYMPH x10^3 (test code 1.26 10*3/uL 1.09-3.23 = 731-0) MONO x10^3 (test code 0.72 10*3/uL 0.36-1.02 = 742-7) EOS x10^3 (test code = <0.03 0.06-0.53 L 711-2) BASO x10^3 (test code 0.04 10*3/uL 0.01-0.09 = 704-7) Lab Interpretation Abnormal (test code = 44658-2) [facility] HospitalCREATINE [id number] 05:20:33 Test Item Value Reference Range Interpretation Comments CK (test code = 1920652610) 1561 U/L 33-194 H Lab Interpretation (test code = Abnormal 98051-9) [facility] [id number] 04:27:03 Test Item Value Reference Range Interpretation Comments CK (test code = 0444862442) 3129 U/L 33-194 H Lab Interpretation (test code = Abnormal 51054-7) [facility] (81031)2021-11-22 04:11:07 Test Item Value Reference Range Interpretation Comments NA (test code = 139 mmol/L 135-145 8855908991) K (test code = 4.3 mmol/L 3.5-5.0 8132553135) CL (test code = 106 mmol/L 98-108 2316037607) CO2 TOTAL (test code = 25 mmol/L 23-31 6464434783) AGAP (test code = 2-16 6557476982) BUN (test code = 19 mg/dL 7-23 0412820684) GLUCOSE (test code = 119 mg/dL 70-110 H 5164546299) CREATININE (test code = 1.23 mg/dL 0.60-1.25 8216277156) TOTAL BILI (test code = 0.7 mg/dL 0.1-1.0 7213837446) CALCIUM (test code = 9.8 mg/dL 8.6-10.6 9581311556) T PROTEIN (test code = 8.3 g/dL 6.3-8.2 H 5502242664) ALBUMIN (test code = 5.3 g/dL 3.5-5.0 H 8639227053) ALK PHOS (test code = 77 U/L 34-122 6416792840) ALTv (test code = 38 U/L 5-50 1742-6) AST(SGOT) (test code = 63 U/L 13-40 H 1377910601) eGFR (test code = mL/min/1.73m2 7627696241) JAYLON (test code = JAYLON) Association of [...] tests). Lab Interpretation Abnormal (test code = 23093-3) [facility] WITH [id number] 04:02:45 Test Item Value Reference Range Interpretation [...] RDW-SD (test code = 41.1 fL 38.5-51.6 81944-8) RDW-CV (test code = 13.0 % 12.1-15.4 788-0) PLT (test code = See_Comment H [Automated 777-3) message] The sy stem which generated this result transmitted reference range : 150 - 328 10*3/ ?L. The reference r daja was not used to interpret this result as normal/abnormal . MPV (test code = 11.1 fL 9.8-13.0 18667-2) IPF % (test code = 6.4 % 1.2-10.7 Platelet count 4049525214) measured by fluorescence method. NRBC/100 WBC (test See_Comment [Automat ed code = 3011242273) message] The system which generated this result transmitted reference range : 0.0 - 10.0 /100 WBCs. The refer ence range was not u sed to interpret th is result as normal/abnormal . NRBC x10^3 (test code <0.01 See_Comment [Auto mated = 3667865970) message] The s ystem which generated this result transmitted reference range : 10*3/?L. The reference range was not used to interpret this result as normal/abnormal . GRAN MAT (NEUT) % 75.2 % (test code = 770-8) IMM GRAN % (test code 0.60 % = 7332405830) LYMPH % (test code = 11.8 % 736-9) MONO % (test code = 11.7 % 5905-5) EOS % (test code = 0.2 % 713-8) BASO % (test code = 0.5 % 706-2) GRAN MAT x10^3(ANC) 10.36 10*3/uL 1.99-6.95 H (test code = 4212017051) IMM GRAN x10^3 (test 0.08 10*3/uL 0.00-0.06 H code = 2285904614) LYMPH x10^3 (test 1.63 10*3/uL 1.09-3.23 code = 731-0) MONO x10^3 (test code 1.62 10*3/uL 0.36-1.02 H = 742-7) EOS x10^3 (test code 0.03 10*3/uL 0.06-0.53 L = 711-2) BASO x10^3 (test code 0.07 10*3/uL 0.01-0.09 = 704-7) REACT LYMPHS (test Rare code = 1067377047) Lab Interpretation Abnormal (test code = 84321-6) [facility] 03:45:36 Test Item Value Reference Range Interpretation Comments ALCOHOL (test code = <10 mg/dL 7257556830) JAYLON (test code = Toxic Greater than or JAYLON) equal to 80 mg/dL. NOTE: Whole blood values are approximately 10% to 15% lower than serum and plasma. [facility] HospitalACETAMINOPHEN2022-05-28 03:44:16 Test Item Value Reference Range Interpretation Comments ACETAMINOP (test code = <10.0 10.0-30.0 L 5399554876) JAYLON (test code = JAYLON) Toxic: Greater than 200 ug/mL @ 4 hour post ingestion or greater than 50 ug/mL @ 12 hour post ingestion Lab Interpretation (test Abnormal code = 82010-6) [facility] HospitalSALICYLATE2022-05-28 03:43:50 Test Item Value Reference Range Interpretation Comments SALICYLATE (test code <10 mg/L = 7520049246) JAYLON (test code = JAYLON) Therapeutic Range: ? Analgesic and Antipyretic Use ? 20-100 mg/L ? ? Anti-Inflammatory Use ? 100-250 mg/L Toxic Range: ? Greater than 300 mg/L [facility] HospitalXR FINGERS 2 VW [id number] 18:42:56 No evidence of fracture or traumatic [...] about the PIP joint.RL: [id number] of report [facility]XR C[facility]ICAL SPINE 3 [id number] 18:38:591. No fracture or malalignment. 2. Minor spondylosis in the lower cervical spine. RL: [id number] End of Report EXAM: XR CERVICAL SPINE [...] C6-7. Small anterior osteophytes are present from K9pwlfbhc C7. There is straightening of the normal [...] C6-7. Small anterior osteophytes are present from D2dzydwti C7. There is straightening of the normal cervical lordosis, likelyrelated to presence of cervical collar. Prevertebral soft tissues arenormal. The visualized lung apices are clear.IMPRESSION1. No fracture or malalignment. 2. Minor spondylosis in the lower cervical spine.RL: [id number] of Report [facility]OLIC [id number] 15:01:00 Test Item Value Reference Range Interpretation [...] Dose Date: 06/28/00 Dose Time: HEPATIC FUNCTION [id number] 15:01:00 Test Item Value Reference Range Interpretation [...] ALKP) Last Dose Date: 06/28/00 Dose Time: [id number] 15:01:00 Test Item Value Reference Range Interpretation Comments ACETAMINOPHEN (test code = ACET) < 2.0 mcG/ML 10.0-30.0 L Last Dose Date: 06/28/00 Dose Time: [id number] 15:01:00 Test Item Value Reference Range Interpretation Comments ALCOHOL (test code = ALC) < 3 MG/DL 0-10 N Last Dose Date: 06/28/00 Dose Time: [id number] 07:32:00 Test Item Value Reference Range Interpretation Comments SALICYLATE (test code = ISA) < 1.7 MG/DL 2.8-20.0 THER L BASIC METABOLIC [id number] 07:24:00 Test Item Value Reference Range Interpretation [...] Dose Date: 06/28/00 Dose Time: HEPATIC FUNCTION [id number] 07:24:00 Test Item Value Reference Range Interpretation [...] ALKP) Last Dose Date: 06/28/00 Dose Time: [id number] 07:24:00 Test Item Value Reference Range Interpretation Comments ACETAMINOPHEN (test code = ACET) mcG/ML 10.0-30.0 Last Dose Date: 06/28/00 Dose Time: [id number] 07:24:00 Test Item Value Reference Range Interpretation [...] for culture: Suprapubic PainDRUGS OF ABUSE SCREEN [id number] 06:55:00 Test Item Value Reference Range Interpretation [...] culture: Suprapubic PainUA RFLX MICR CULT IF [id number] 06:44:00 Test Item Value Reference Range Interpretation [...] for culture: Suprapubic PainDRUGS OF ABUSE SCREEN [id number] 06:44:00 Test Item Value Reference Range Interpretation [...] culture: Suprapubic PainUA RFLX MICR CULT IF [id number] 06:43:00 Test Item Value Reference Range Interpretation [...] for culture: Suprapubic PainDRUGS OF ABUSE SCREEN [id number] 06:43:00 Test Item Value Reference Range Interpretation [...] CLEAN CATCHIndication for culture: Suprapubic PainCBC W/AUTO [id number] 06:40:00 Test Item Value Reference Range Interpretation [...] = NO DIFF/SCN CRITERIA MDIFF) CBC W/AUTO [id number] 21:39:00 Test Item Value Reference Range Interpretation [...] CONSISTA NT WITH AUTO DIFFERENTIAL. CBC W/AUTO [id number] 20:15:00 Test Item Value Reference Range Interpretation [...] code = DIFF/SCN CRITERIA MDIFF) COMPREHENSIVE METABOLIC [id number] 20:01:00 Test Item Value Reference Range Interpretation [...] 50-136 N (test code = ALKP) CREATINE [id number] 06:52:00 Test Item Value Reference Range Interpretation Comments CK (test code = 3253052413) 514 U/L 33-194 H Lab Interpretation (test code = Abnormal 99841-5) [facility] HospitalDRUG PANEL 2 [id number] 05:55:00 Test Item Value Reference Range Interpretation Comments AMPHET (test code = Presumptive Positive Negative A 3174890730) CHERI U (test code = Negative Negative 3683976720) BENZO U (test code = Negative Negative 3281787527) Cocaine Metabolite (test Negative Negative code = 5841892223) METHADONE (test code = Negative Negative 3660713438) OPIATES (test code = Negative Negative 2910590620) PCP (test code = Negative Negative 1042706134) THC (test code = Presumptive Positive Negative A 6926087844) JAYLON (test code = JAYLON) Urine Drug [...] testing). Lab Interpretation (test Abnormal code = 37764-2) [facility] HospitalUrinalysis2020-02-24 05:07:00 Test Item Value Reference Range Interpretation Comments APPEARANCE (test code = Clear Clear 5875336193) COLOR (test code = Yellow Yellow 4024087075) PH (test code = 4.8-8.0 8685392038) SP GRAVITY (test code = 1.003-1.030 9397901987) GLU U QUAL (test code = Normal Normal 2704535339) BLOOD (test code = Negative Negative 6015065869) KETONES (test code = Negative Negative 1154874199) PROTEIN (test code = Negative Negative 2887-8) UROBILIN (test code = Normal Normal 1707340593) BILIRUBIN (test code = Negative Negative 6261897029) NITRITE (test code = Negative Negative 4684535962) LEUK ANDREW (test code = Negative Negative 5712141457) RBC/HPF (test code = <1 See_Comment [Autom ated message] 2066966368) The system [employer] generated this result transmitted ref erence range: 0 - 3 HP F. The reference range was not used to int erpret this result as normal/abnormal . WBC/HPF (test code = <1 See_Comment [Autom ated message] 9466375359) The system [employer] generated this result transmitted ref erence range: 0 - 5 HP F. The reference range was not used to int erpret this result as normal/abnormal . BACTERIA (test code = Negative Negative 5434496449) SQ EPITH (test code = <1 See_Comment [Auto mated message] 6761850163) The system [employer] generated this result transmitted ref erence range: <=2 HPF. The reference range was not used to int erpret this result as normal/abnormal . Lab Interpretation (test Normal code = 46956-2) [facility] HospitalACETAMINOPHEN2020-02-24 03:53:00 Test Item Value Reference Range Interpretation Comments ACETAMINOP (test code = <10.0 10-30 L 3159832808) JAYLON (test code = JAYLON) Toxic: Greater than 200 ug/mL @ 4 hour post ingestion or greater than 50 ug/mL @ 12 hour post ingestion Lab Interpretation (test Abnormal code = 06352-8) [facility] HospitalSALICYLATE2020-02-24 03:53:00 Test Item Value Reference Range Interpretation Comments SALICYLATE (test code <10 mg/L = 7194684000) JAYLON (test code = JAYLON) Therapeutic Range: ? Analgesic and Antipyretic Use ? 20-100 mg/L ? ? Anti-Inflammatory Use ? 100-250 mg/L Toxic Range: ? Greater than 300 mg/L [facility] (NA, K, CL, CO2, GLUCOSE, BUN, CREATININE, CA)2019-08-21 03:52:00 Test Item Value Reference Range Interpretation Comments NA (test code = 138 mmol/L 135-145 5307280709) K (test code = 3.9 mmol/L 3.5-5 1498427182) CL (test code = 103 mmol/L 98-108 3577129239) CO2 TOTAL (test code = 26 mmol/L 23-31 3859038399) AGAP (test code = 2-16 6948080715) BUN (test code = 14 mg/dL 7-23 8202863843) GLUCOSE (test code = 106 mg/dL 70-110 6297438294) CREATININE (test code 0.83 mg/dL 0.6-1.25 = 3088434722) CALCIUM (test code = 9.2 mg/dL 8.6-10.6 8443723234) eGFR Calculation mL/min/1.73m2 (Non-) (test code = 7774992793) eGFR Calculation mL/min/1.73m2 () (test code = 2326301802) JAYLON (test code = JAYLON) Association of [...] or urine or abnormalities in imaging tests). [facility] HospitalHepatic Function Panel (ALB, T.PRO, BILI T, BU/BC, ALT, AST, ALK PHOS)2019-08-21 03:52:00 Test Item Value Reference Range Interpretation Comments TOTAL BILI (test code = 7051389876) 0.2 mg/dL 0.1-1.1 BILI UNCON (test code = 7765230017) 0.2 mg/dL 0.1-1.1 BILI CONJ (test code = 0004431831) 0.0 mg/dL 0-0.3 T PROTEIN (test code = 9468826192) 7.0 g/dL 6.3-8.2 ALBUMIN (test code = 1993018488) 4.4 g/dL 3.5-5 ALK PHOS (test code = 1317603353) 100 U/L 34-122 ALTv (test code = 1742-6) 18 U/L 5-50 AST(SGOT) (test code = 6427210535) 29 U/L 13-40 Lab Interpretation (test code = Normal 20877-9) [facility] HospitalEthanol [id number] 03:52:00 Test Item Value Reference Range Interpretation Comments ALCOHOL (test code = 24 mg/dL 8459205164) JAYLON (test code = Toxic Greater than or JAYLON) equal to 80 mg/dL. NOTE: Whole blood values are approximately 10% to 15% lower than serum and plasma. [facility] WITH [id number] 03:40:00 Test Item Value Reference Range Interpretation [...] RDW-SD (test code = 42.3 fL 38.5-51.6 51140-4) RDW-CV (test code = 12.8 % 12.1-15.4 788-0) PLT (test code = See_Comment [Automated 777-3) message] The sy stem which generated this result transmitted reference range : 150 - 328 10*3/ ?L. The reference r daja was not used to interpret this result as normal/abnormal . MPV (test code = 10.5 fL 9.8-13 00994-2) NRBC/100 WBC (test See_Comment [Automat ed code = 3339981586) message] The system which generated this result transmitted reference range : 0.0 - 10.0 /100 WBCs. The refer ence range was not u sed to interpret th is result as normal/abnormal . NRBC x10^3 (test code <0.01 See_Comment [Auto mated = 0949928643) message] The s ystem which generated this result transmitted reference range : 10*3/?L. The reference range was not used to interpret this result as normal/abnormal . GRAN MAT (NEUT) % 71.2 % (test code = 770-8) IMM GRAN % (test code 0.30 % = 0364457628) LYMPH % (test code = 21.4 % 736-9) MONO % (test code = 5.3 % 5905-5) EOS % (test code = 1.2 % 713-8) BASO % (test code = 0.6 % 706-2) GRAN MAT x10^3(ANC) 9.03 10*3/uL 1.99-6.95 H (test code = 7876822709) IMM GRAN x10^3 (test 0.04 10*3/uL 0-0.06 code = 6598453463) LYMPH x10^3 (test code 2.71 10*3/uL 1.09-3.23 = 731-0) MONO x10^3 (test code 0.67 10*3/uL 0.36-1.02 = 742-7) EOS x10^3 (test code = 0.15 10*3/uL 0.06-0.53 711-2) BASO x10^3 (test code 0.08 10*3/uL 0.01-0.09 = 704-7) Lab Interpretation Abnormal (test code = 33044-1) [facility]XR [facility] 3+ VW [id number] 08:29:53 No acute osseous abnormality of the right hand. RL: 460 AFC: [id number] Ordering physician: ANNA MARIE DIAZ INDICATION: Acute injury to the right and COMPARISON: None FINDINGS: 3 views of the right hand. No acute fracture or dislocation isappreciated. There is no radiopaque foreign body. Tnmb, Radiant Results Inft User - 03/03/2019 3:31 AM CDTOrdering physician: ANNA MARIE DIAZINDICATION: Acute injury tothe right andCOMPARISON: NoneFINDINGS: 3 views of the right hand. No acute fracture or dislocation isappreciated. There is no radiopaque foreign body.IMPRESSIONNo acute osseous abnormality of the righthand.RL: 460AFC: 72734 [facility] HospitalValproic Acid [id number] 08:10:30 Test Item Value Reference Range Interpretation Comments Valproic Acid Level (test code 94.1 ug/mL(g) 50.0-100.0 = Valproic Acid Level) Hemoglobin [id number] 09:40:02 Test Item Value Reference Range Interpretation Comments Hemoglobin A1c (test code 5.0 % 4.8-5.9 No n Diabetic = Hemoglobin A1c) 4.8-5.9%Di abetic <7.0% Valproic Acid [id number] 08:30:39 Test Item Value Reference Range Interpretation Comments Valproic Acid Level (test code 120.3 ug/mL(g) 50.0-100.0 H = Valproic Acid Level) RPR Xwflprrfdlp1956-00-25 06:07:29 Test Item Value Reference Range Interpretation [...] = 10.31.2020 N Expiration Dt) Thyroid Stimulating Qjrxhnq6657-45-91 02:34:05 Test Item Value Reference Range Interpretation Comments TSH (test code = TSH) 1.290 mIU/mL 0.270-4.200 Lipid Horjw0737-40-24 02:16:21 Test Item Value Reference Range Interpretation Comments Cholesterol Total 127 mg/dL 0-200 RISK OF HE ART (test code = DISEASEPublishe d by Cholesterol Total) [place] [employer] Dottie lyte Optimal Borderl ine [...] LDL/HDL Ratio=L DL Calc/HDL Chol Comprehensive Metabolic Fwwde7937-98-08 12:18:35 Test Item Value Reference Range Interpretation [...] A/G 2.0 ratio N Ratio) Comprehensive Metabolic Cnfxe4484-61-25 12:18:35 Test Item Value Reference Range Interpretation [...] the National Kid[employer] Foundation, http://nkdep.ni h.gov Alcohol Iwzpd5401-68-35 12:18:35 Test Item Value Reference Range Interpretation Comments Ethanol Level (test <0.00 g/dL 0.00-0.01 Intoxica lázaro 0.080 g/dL code = Ethanol or more Level) Ethanol Inst (test <0 N code = Ethanol Inst) Comprehensive Metabolic [id number] 12:18:35 Test Item Value Reference Range Interpretation [...] ag e have not been validated by [facility] MDRD study and should be [...] ag e have not been validated by [facility] MDRD study and should be interpreted wit h caution. eGFR R esult Interpretation: eGFR > or = 60 is in the Normal RangeeGF R < 60 may mean kid bekah diseaseeGFR < 1 5 may mean kidney failure Rang es recommended by the National Kidney Foundation, http://nkdep.ni h.gov Drugs of Abuse Urine 35807-30-16 11:40:37 Test Item Value Reference Range Interpretation [...] Cannabinoid Screen Ur) Urinalysis with Culture, if rbshaevxn9609-35-31 11:17:21 Test Item Value Reference Range Interpretation [...] Micro Ind?) rule GL_SJM_UA_MICRO _IN D Automated Wpfvngtoocwf4202-16-60 11:14:20 Test Item Value Reference Range Interpretation Comments Neutro Auto (test code = Neutro 73.7 % 36.0-70.0 H Auto) Lymph Auto (test code = Lymph Auto) 18.8 % 12.0-44.0 Towns Auto (test code = Towns Auto) 5.0 % 0.0-11.0 Eos, Auto (test code = Eos, Auto) 1.4 % 0.0-7.0 Basophil Auto (test code = Basophil 0.7 % 0.0-2.0 Auto) Neutro Absolute (test code = Neutro 6.3 x10 1.6-7.4 Absolute) Lymph Absolute (test code = Lymph 1.61 x10 .50-4.60 Absolute) Towns Absolute (test code = Towns .43 x10 .00-1.20 Absolute) Eos Absolute (test code = Eos 0.12 x10 0.00-0.74 Absolute) Baso Absolute (test code = Baso 0.06 x10 0.00-0.21 Absolute) IG [id number] 11:14:20 Test Item Value Reference Range Interpretation Comments IG (test code = IG) 0.4 % 0.0-5.0 IG Abs (test code = IG Abs) 0 x10 N Complete Blood Count with [id number] 11:14:19 Test Item Value Reference Range Interpretation [...] IPF) 0 % N XR chest 1V [facility] [address] [place] [address] Patient Name: Carlos Wu Medical Record#: [id number] Address: [address] City/State/Zip: [place] [address]: Anabel bunch MD Insurance: Self Pay /Age/Sex: 1990 31/M Admit/Reg Date: 02/07/[address]: CHANTAL Christianson Location: [facility]/ PCP: PcpMd PALMIRA Cole Date of Service: 02/07/22 Order (s): XR chest 1V CPTCode: 63516 Report Number: [id number] Reason for Exam: tachy Location: H3 CHEST [...] CHANTAL Christianson; Pcp-Md PALMIRA MainEKG ED Electrocardiogram [address] [address] Patient Name: Carlos Wu Medical Record#: [id number] Address: [address] [place] [address] City/State/Zip: [place] [address]: Anabel bunch MD Insurance: Self Pay /Age/Sex: 1990 31/M Admit/Reg Date: 02/07/[address]: CHANTAL Christianson Location: [facility]/ PCP: PcpMd PALMIRA Cole Date of Service: 02/07/22 Order (s): EKG ED Electrocardiogram CPT Code: 42881 Report Number: [id number] Reason for Exam: Chest Pain Sinus tachycardia LAE,consider biatrial enlargement Right axis deviation Artifact in lead(s) I,II,III,aVR,aVL,aVF,V1,V2,V3,V4,V5 Summary: Abnormal ECG Dictated By: Stephani Lambert MD 02/07/22 0015 Signed By: Stephani Lambert MD 02/08/22 1447 TD/TT: 02/07/225 Tech: SVCCPACS cc: TIAGO; PCPNO* MD Jayme Rubio, PAC; Pcp-Etelvina,Md CHAVIS
[2022-04-12] MEDS ORDERED: RISPERIDONE 1 MG TABLET PO ONE (15:00)
--- NOTE | 2022-04-12 20:39 | ER ---
Nurse's Notes [facility] Name: Carlos Walker Age: 31 yrs Sex: Male : 1990 Arrival Date: 04/12/2022 Time: 12:32 Bed 18 Private MD: Diagnosis: Abuse of other non-psychoactive substances;Adverse effect of amphetamines;Cocaine abuse;Bipolar disorder, unspecified;Visual hallucinations;Hallucinations, unspecified Presentation: 04/12 12:42 Chief complaint: Patient states: i feeling suicidal. i am seeing things, hearing things tw2 and see snakes. Coronavirus screen: At this time, the client does not indicate any symptoms associated with coronavirus-19. Ebola Screen: Patient denies travel to an Ebola-affected area in the 21 days before illness onset. Initial Sepsis Screen: Does the patient meet any 2 criteria? HR > 90 bpm. No. Patient's initial sepsis screen is negative. Does the patient have a suspected source of infection? No. Patient's initial sepsis screen is negative. Risk Assessment: Do you want to hurt yourself or someone else? Patient reports no desire to harm self or others. Onset of symptoms was April 12, 2022. 12:42 Method Of Arrival: Law Enforcement: [place] [employer] tw2 12:42 Acuity: EDD 2 tw2 Triage Assessment: 12:46 General: Appears in no apparent distress. Behavior is cooperative. Pain: Denies pain. tw2 Neuro: Level of Consciousness is awake, alert, obeys commands, Oriented to person, place, time, situation. Historical: - Allergies: 12:44 Abilify; tw2 12:44 Promethazine; tw2 - Home Meds: 12:44 Trazodone 200 mg Oral once daily [Active]; Zyprexa 2 mg Oral once daily [Active]; tw2 Risperdal 2 mg Oral tab 1 tab once daily [Active]; Depakote 1000 mg Oral once daily [Active]; - PMHx: 12:44 Bipolar disorder; Schizophrenia; tw2 - Immunization history:: Client reports receiving the 2nd dose of the Covid vaccine. - Social history:: Smoking status: Patient reports the use of cigarette tobacco products, smokes two packs cigarettes per day. Patient uses alcohol, "once in a while". street drugs, cocaine, marijuana, Methamphetamine (Meth) last used "about 2 days ago". Screenin:57 Abuse screen: Denies threats or abuse. Nutritional screening: No deficits noted. iw Tuberculosis screening: No symptoms or risk factors identified. Fall Risk None identified. Assessment: 12:56 General: Appears in no apparent distress. Behavior is anxious. Neuro: Level of iw Consciousness is awake, alert, obeys commands, Moves all extremities. Full function. Cardiovascular: Patient's skin is warm and dry. Respiratory: Respiratory effort is even, unlabored, Respiratory pattern is regular, symmetrical. Derm: Skin is intact, is healthy with good turgor. Musculoskeletal: Range of motion: intact in all extremities. 12:57 Reassessment: pt placed in chair, no rooms available at this time. iw 13:32 Reassessment: pt refuses IV or medication, remains in chair. iw 14:28 Reassessment: pt agrees to take Risperdal. iw 15:05 Reassessment: pt talking to himself, remains seated in chair in view of nurse's station.iw 16:10 Reassessment: Pt watching television, eating sandwich, and talking to himself while hb seated in chair by nurse's station. 18:28 Reassessment: Patient appears in no apparent distress at this time. Patient and/or iw family updated on plan of care and expected duration. Pain level reassessed. Patient is alert, oriented x 3, equal unlabored respirations, skin warm/dry/pink. pt sitting in chair, watching TV, no longer talking out loud to himself. 22:43 Reassessment: Pt sitting in chair near nurse's station, in no apparent distress, calmly hb watching television while talking out loud to himself. 04/13 07:00 General: Appears in no apparent distress. comfortable, Behavior is sleeping . tp1 Cardiovascular: Patient's skin is warm and dry. Respiratory: Airway is patent Respiratory effort is even, unlabored, Respiratory pattern is regular. 09:49 General: Appears in no apparent distress. comfortable, Behavior is calm. Neuro: Level kr3 of Consciousness is awake, alert, obeys commands, Moves all extremities. Full function. Cardiovascular: Patient's skin is warm and dry. Respiratory: Airway is patent Respiratory effort is even, unlabored, Respiratory pattern is regular, symmetrical. Derm: Skin is intact, is healthy with good turgor. Musculoskeletal: Range of motion: intact in all extremities. 11:50 Reassessment: Patient and/or family updated on plan of care and expected duration. Pain kr3 level reassessed. Patient is alert, oriented x 3, equal unlabored respirations, skin warm/dry/pink. General: Appears comfortable, Behavior is anxious, restless, talking to self about seeing snakes and then telling to calm down the snakes are not there. 13:50 Reassessment: No changes from previously documented assessment. Patient and/or family kr3 updated on plan of care and expected duration. Pain level reassessed. 15:50 Reassessment: No changes from previously documented assessment. Patient and/or family kr3 updated on plan of care and expected duration. Pain level reassessed. 18:00 Reassessment: No changes from previously documented assessment. Patient and/or family kr3 updated on plan of care and expected duration. Pain level reassessed. 20:35 Reassessment: No changes from previously documented assessment. Patient and/or family kr3 updated on plan of care and expected duration. Pain level reassessed. Neuro: Level of Consciousness is awake, alert, obeys commands, Moves all extremities. Full function. Cardiovascular: Patient's skin is warm and dry. Respiratory: Airway is patent Respiratory effort is even, unlabored, Respiratory pattern is regular, symmetrical. 21:38 Reassessment: No changes from previously documented assessment. Patient is alert, fu oriented x 3, equal unlabored respirations, skin warm/dry/pink. Patient talking to self. 04/14 09:00 General: Appears comfortable, Behavior is sleeping. kr3 11:00 Reassessment: No changes from previously documented assessment. Patient and/or family kr3 updated on plan of care and expected duration. Pain level reassessed. 11:45 Reassessment: pt received finger food diet tray. mb9 12:00 Reassessment: toileting offered to pt. mb9 14:15 General: Behavior is agitated, anxious, asking to leave. kr3 15:53 Reassessment: No changes from previously documented assessment. Patient and/or family kr3 updated on plan of care and expected duration. Pain level reassessed. Neuro: Level of Consciousness is. Neuro: Moves all extremities. Full function. Cardiovascular: Patient's skin is warm and dry. Respiratory: Airway is patent Respiratory effort is even, unlabored, Respiratory pattern is regular, symmetrical. Derm: Skin is intact, is healthy with good turgor. Musculoskeletal: Range of motion: intact in all extremities. 18:22 Reassessment: No changes from previously documented assessment. Patient and/or family kr3 updated on plan of care and expected duration. Pain level reassessed. 04/15 07:12 Reassessment: report given to jocy mays. jj7 07:42 Reassessment: Patient appears in no apparent distress at this time. Pt sleeping w/ ph equal and unlabored respirations. 10:25 Reassessment: Patient appears in no apparent distress at this time. Patient and/or ph family updated on plan of care and expected duration. Pain level reassessed. Pt awake, talking to himself, eating breakfast, tolerating well. 11:47 Reassessment: Patient appears in no apparent distress at this time. Patient and/or ph family updated on plan of care and expected duration. Pain level reassessed. Pt awake and alert, states, " I'm ready to get out of here, I'm good." Pt denies any suicidal thoughts at this time, states, " I'm okay, I'm good, just ready to get out of here." Offered to check and see if he could have another dose of risperdol prior to leaving, pt declined. 12:07 Reassessment: Patient appears in no apparent distress at this time. Patient and/or ph family updated on plan of care and expected duration. Pain level reassessed. Patient is alert, oriented x 3, equal unlabored respirations, skin warm/dry/pink. Pt d/c, given money or bus fare, states that he is going to [place]. Psych: 04/12 12:46 [place] Suicide Severity Screening: "In the past month, have you actually had any tw2 thoughts of killing yourself?" Patient responds "yes." Based off the client's response additional [place] suicide severity screening questions to be further documented on paper forms. [place] Suicide Severity Screening: "In your lifetime, have you ever done anything, started to do anything, or prepared to do anything to end your life?" Patient responds "yes." Patient reports suicidal intent within 3 past months. [place] Suicide Severity Screening: In the past month, have you wished you were or wished you could go to sleep and not wake up? Patient responds "yes." Based off the client's responses additional C-SSRS screening is required. Subjective: Delusions are denied, Hallucinations are auditory, Having thoughts of suicide. Plan for suicide is pt states "with a knife". Objective: Patient is cooperative, Speech is normal, Affect is appropriate. Vital Signs: 12:42 BP 119 / 91; Pulse 110; Resp 17; Temp 98.6(TE); Pulse Ox 98% on R/A; Weight 83.91 kg; tw2 Height 5 ft. 8 in. (172.72 cm) (R); Pain 0/10; 04/13 01:45 BP 126 / 87; Pulse 65; Resp 16; Temp 98.2(O); Pulse Ox 100% on R/A; mm9 20:36 BP 128 / 80; Pulse 62; Resp 16; Temp 98.4; Pulse Ox 100% on R/A; kr3 04/14 19:21 BP 121 / 82; Pulse 64; Resp 16; Temp 98.6; Pulse Ox 100% on R/A; kr3 04/15 00:00 BP 128 / 79; Pulse 67; Resp 16; Pulse Ox 100% ; Pain 0/10; jj7 04:00 BP 122 / 73; Pulse 66; Resp 20; Pulse Ox 100% ; jj7 04/12 12:42 Body Mass Index 28.13 (83.91 kg, 172.72 cm) tw2 ED Course: 04/12 12:32 Patient arrived in ED. ja2 12:44 Triage completed. tw2 12:46 Arm band placed on. tw2 12:56 Yfn Cheung PA is PHCP. jmm 12:56 Raymon Avendano MD is Attending Physician. [facility] 13:00 Safety Checks: Other: pt placed in diagnostic waiting area in chair, visible from nurse's station. 13:00 Patient has correct armband on for positive identification. iw 14:01 Inserted saline lock: 20 gauge in right forearm, using aseptic technique. Blood em1 collected. 14:04 Clau Rincon, RN is Primary Nurse. iw 20:04 Attending Physician role handed off by Raymon Avendano MD ms3 20:04 Elmer Damico DO is Attending Physician. ms3 22:51 Primary Nurse role handed off by Clau Rincon RN wm 04/13 00:40 Called [facility] for a Screener, spoke with Humberto. wm 00:40 Faxed chart to the following facilities: [facility], [facility], [facility], [facility], [facility], [facility], [facility], [facility], [facility], [facility], [facility], [facility]. 01:00 Valuables inventory done. Locked in safe. See valuables checklist. Security at bedside. ll3 01:00 Sitter at bedside. ll3 01:13 Safety Checks: Personal items have been removed. The door is open or patient has been ll3 placed in a hallway bed/chair. There are no family/friend visitors at this time Sitter present at this time. 02:48 [facility] called and stated they had no available beds. wm 04:56 Kely from [facility] asked for the Exclusionary form. wm 05:39 Azeem Alas RN is Primary Nurse. ke1 06:15 Faxed requested form to [facility]. wm 07:00 Safety Checks: Personal items have been removed. The door is open or patient has been tp1 placed in a hallway bed/chair. There are no family/friend visitors at this time Sitter not present at this time due to or because no sitter available, charge nurse notified. 08:33 Primary Nurse role handed off by Azeem Alas RN tp1 08:33 Luisa Rudolph, YOHANNES is Primary Nurse. tp1 09:05 No apparent distress. Resting quietly. Safety Checks: Personal items have been removed. tp1 The door is open or patient has been placed in a hallway bed/chair. There are no family/friend visitors at this time Sitter present at this time. 22:23 [facility] requesting an exclusionary form. mw2 22:40 faxed patient exclusionary to [facility]. mw2 04/14 14:15 Appears agitated. patient is wanting to leave facility. kr3 14:23 Attending Physician role handed off by Elmer Damico DO cha 14:23 Raymon Avendano MD is Attending Physician. greyson 19:18 Primary Nurse role handed off by Luisa Rudolph, YOHANNES mw2 04/15 07:29 Jocy Elizabeth, RN is Primary Nurse. ph 11:48 No provider procedures requiring assistance completed. IV discontinued, intact, ph bleeding controlled, No redness/swelling at site. Pressure dressing applied. 12:01 Mariano Robin MD is Referral Physician. greyson Administered Medications: 04/12 14:26 Drug: risperiDONE 2 mg Route: PO; iw 04/14 18:23 Follow up: Response: No adverse reaction kr3 04/13 21:20 Drug: RisperDAL (risperiDONE) 2 mg Route: PO; fu 04/14 18:23 Follow up: Response: No adverse reaction kr3 14:49 Drug: RisperDAL (risperiDONE) 2 mg Route: PO; kr3 18:23 Follow up: Response: No adverse reaction kr3 Medication: 04/15 11:48 VIS not applicable for this client. ph Outcome: 04/12 20:37 ER care complete, transfer ordered by MD. ms3 04/15 12:02 Discharge ordered by MD. [facility] 12:09 Discharged to home ambulatory. ph 12:09 Condition: good 12:09 Discharge instructions given to patient, Instructed on discharge instructions, follow up and referral plans. Demonstrated understanding of instructions, follow-up care. 12:12 Patient left the ED. ph Signatures: Raymon Avendano MD MD cha Mickail, Joel, PA PA jmm Williams, Irene, RN Reginaldo Blanchard em1 Jocy Elizabeth RN RN Rochelle Blanco RN Mamie Jackman RN YOHANNES 2 Carmelo Harvey, RN YOHANNES Nick Paz 2 Elmer Damico DO DO ms3 Cailin Townsend Karlene Schilling Lynsea RN YOHANNES 3 Luisa Rudolph, RN RN adri1 Azeem Alas RN RN ke1 Dory Parada RN RN kr3 Johnson, Juwairiyah RN Patti Love Mary RN RN [email or web address] Corrections: (The following items were deleted from the chart) 04/13 01:26 00:40 Faxed chart to the following facilities: [facility] 04/14 15:15 12:00 Reassessment: pilo [email or web address] 16:28 14:15 Reassessment: kr3 kr3
--- NOTE | 2022-04-12 20:39 | EDPHYS ---
Physician Documentation [facility] Name: Carlos Walker Age: 31 yrs Sex: Male : 1990 Arrival Date: 04/12/2022 Time: 12:32 Bed 18 Private MD: ED Physician Raymon Avendano HPI: 04/12 13:12 This 31 yrs old Male presents to ER via Law Enforcement with complaints of jmm Drug Abuse. 13:12 The patient presents to the emergency department with homicidal ideation, psychosis, jmm has experienced auditory hallucinations, has experienced visual hallucinations, a history of substance abuse, suicide ideation. Onset: The symptoms/episode began/occurred acutely, 2 day(s) ago. Past psychiatric history: Prior diagnosis: schizophrenia, Psychiatric medications include: Risperdal. Historical: - Allergies: 12:44 Abilify; tw2 12:44 Promethazine; tw2 - Home Meds: 12:44 Trazodone 200 mg Oral once daily [Active]; Zyprexa 2 mg Oral once daily [Active]; tw2 Risperdal 2 mg Oral tab 1 tab once daily [Active]; Depakote 1000 mg Oral once daily [Active]; - PMHx: 12:44 Bipolar disorder; Schizophrenia; tw2 - Immunization history:: Client reports receiving the 2nd dose of the Covid vaccine. - Social history:: Smoking status: Patient reports the use of cigarette tobacco products, smokes two packs cigarettes per day. Patient uses alcohol, "once in a while". street drugs, cocaine, marijuana, Methamphetamine (Meth) last used "about 2 days ago". ROS: 13:12 Constitutional: Negative for fever, chills, and weight loss, Cardiovascular: Negative jmm for chest pain, palpitations, and edema, Respiratory: Negative for shortness of breath, cough, wheezing, and pleuritic chest pain, Abdomen/GI: Negative for abdominal pain, nausea, vomiting, diarrhea, and constipation. 13:12 Psych: Positive for homicidal ideation, suicidal ideation. 13:12 All other systems are negative. Exam: 13:12 Constitutional: This is a well developed, well nourished patient who is awake, alert, jmm and in no acute distress. Head/Face: atraumatic. Eyes: EOMI, no conjunctival erythema appreciated ENT: Moist Mucus Membranes Neck: Trachea midline, Supple Chest/axilla: Normal chest wall appearance and motion. Cardiovascular: Regular rate and rhythm. No edema appreciated Respiratory: Normal respirations, no respiratory distress appreciated Abdomen/GI: Non distended Back: Normal ROM Skin: General appearance color normal MS/ Extremity: Moves all extremities, no obvious deformities appreciated, no edema noted to the lower extremities Neuro: Awake and alert 13:12 Psych: Behavior/mood is anxious, suicidal, Affect is flat. Vital Signs: 12:42 BP 119 / 91; Pulse 110; Resp 17; Temp 98.6(TE); Pulse Ox 98% on R/A; Weight 83.91 kg; tw2 Height 5 ft. 8 in. (172.72 cm) (R); Pain 0/10; 04/13 01:45 BP 126 / 87; Pulse 65; Resp 16; Temp 98.2(O); Pulse Ox 100% on R/A; mm9 20:36 BP 128 / 80; Pulse 62; Resp 16; Temp 98.4; Pulse Ox 100% on R/A; kr3 04/14 19:21 BP 121 / 82; Pulse 64; Resp 16; Temp 98.6; Pulse Ox 100% on R/A; kr3 04/15 00:00 BP 128 / 79; Pulse 67; Resp 16; Pulse Ox 100% ; Pain 0/10; jj7 04:00 BP 122 / 73; Pulse 66; Resp 20; Pulse Ox 100% ; jj7 04/12 12:42 Body Mass Index 28.13 (83.91 kg, 172.72 cm) tw2 MDM: 04/12 13:12 Patient medically screened. [facility] 04/15 12:01 Data reviewed: vital signs, nurses notes, lab test result(s). [facility] 12:05 ED course: no homicidal , not suicidal. [facility] 04/12 13:19 Order name: EKG; Complete Time: 13:21 [facility] 04/12 14:29 Order name: Diet Finger Food; Complete Time: 14:29 iw 04/13 02:41 Order name: Suicide Precautions; Complete Time: 08:33 ms3 04/13 04:58 Order name: Diet Finger Food; Complete Time: 04:58 mm9 04/13 06:56 Order name: Diet Finger Food; Complete Time: 06:56 ms3 04/13 11:38 Order name: Diet Finger Food; Complete Time: 11:38 bd 04/13 17:05 Order name: Diet Finger Food; Complete Time: 17:06 bd 04/14 11:26 Order name: Diet Finger Food; Complete Time: 11:27 bd 04/14 15:00 Order name: Diet Finger Food; Complete Time: 15:01 mb9 04/15 07:30 Order name: Diet Finger Food; Complete Time: 07:30 ph Administered Medications: 04/12 14:26 Drug: risperiDONE 2 mg Route: PO; iw 04/14 18:23 Follow up: Response: No adverse reaction kr3 04/13 21:20 Drug: RisperDAL (risperiDONE) 2 mg Route: PO; fu 04/14 18:23 Follow up: Response: No adverse reaction kr3 14:49 Drug: RisperDAL (risperiDONE) 2 mg Route: PO; kr3 18:23 Follow up: Response: No adverse reaction kr3 Disposition: 04/13 00:16 Co-signature as Attending Physician, Elmer Damico DO. ms3 Disposition Summary: 04/15/22 12:02 Discharge Ordered Location: Home greyson Problem: new(04/15/22 12:02) greyson Symptoms: have improved(04/15/22 12:02) greyson Condition: Stable(04/15/22 12:02) greyson Diagnosis - Abuse of other non-psychoactive substances greyson - Adverse effect of amphetamines greyson - Cocaine abuse greyson - Bipolar disorder, unspecified greyson - Visual hallucinations greyson - Hallucinations, unspecified greyson Followup: greyson - With: Private Physician - When: 2 - 3 days - Reason: Recheck today's complaints, Re-evaluation by your physician Followup: greyson - With: Mariano Robin MD - When: 2 - 3 days - Reason: Recheck today's complaints, Re-evaluation by your physician Discharge Instructions: - Discharge Summary Sheet greyson - Substance Use Disorder greyson - Supporting Someone With an Addiction greyson Forms: - Medication Reconciliation Form greyson - Thank You Letter greyson - Antibiotic Education greyson - Prescription Opioid Use greyson Prescriptions: - Risperdal 1 mg Oral tablet - take 1 tablet by ORAL route 2 times per day; 40 tablet; Refills: 0, Product greyson Selection Permitted Signatures: Dispatcher [employer] Raymon Colmenares MD MD cha Mickail, Joel, PA PA jmm Williams Clau, RN Mamie Dutta, RN RN tw2 Carmelo Harvey, RN Elmer Moe DO DO ms3 Pilar Castillo MD MD sd2 Dory Parada, RN RN kr3 Corrections: (The following items were deleted from the chart) 04/12 13:27 13:19 EKG - Nurse/Tech ordered. [facility] 13: 13:19 IV Saline Lock ordered. [facility] : 13:19 Labs collected and sent ordered. [facility] : 13:19 Suicide Screening ([place]) ordered. [facility] 13: 13:19 Urine Dipstick-Ancillary ordered. [facility] 22:39 13:21 URINE DRUG SCREEN+UC.LAB.BRZ ordered. EDMS EDMS 22:40 13:21 ETHANOL+C.LAB.BRZ ordered. EDMS EDMS 22:40 13:21 PROTIME (+INR)+COAG.LAB.BRZ ordered. EDMS EDMS 22:40 13:21 PTT, ACTIVATED+COAG.LAB.BRZ ordered. EDMS EDMS 22:40 13:21 SALICYLATE+C.LAB.BRZ ordered. EDMS EDMS 22:41 13:21 ACETAMINOPHEN+C.LAB.BRZ ordered. EDMS EDMS 22:41 13:21 BASIC METABOLIC PANEL+C.LAB.BRZ ordered. EDMS EDMS 22:41 13:21 CBC+H.LAB.BRZ ordered. EDMS EDMS 22:41 13:21 HEPATIC FUNCTION+C.LAB.BRZ ordered. EDMS EDMS 04/15 12:04/12 20:37 Psych ms3 greyson 04/15 12:04/12 20:37 Psych Facility ms3 greyson 04/15 12:01 04/12 20:37 Higher level of care ms3 greyson 04/15 12:04/12 20:37 Stable ms3 greyson 04/15 12:04/12 20:37 new ms3 greyson 04/15 12:04/12 20:37 are unchanged ms3 greyson 04/15 12:01 04/12 20:37 Methamphetamine abuse ms3 greyson 04/15 12:01 04/12 20:37 Cocaine abuse ms3 greyson 04/15 12:01 04/12 20:37 Auditory hallucinations ms3 greyson 04/15 12:01 04/12 20:37 Homicidal and suicidal ideations ms3 greyson
--- NOTE | 2022-04-13 16:11 | EKG ---
Test Date: 2022-04-12 Test Time: 02:25:26 Button Buttonhole Marker: DAVID MEASUREMENT RESULTS: Intervals: Rate: 73 [place]: 138 QRSD: 92 QT: 378 QTc: 416 [place]: P: 82 [place]: 138 QRS: 88 T: 43 INTERPRETIVE STATEMENTS: Normal sinus rhythm Incomplete right bundle branch block Borderline ECG Compared to ECG 04/10/2022 06:23:35 Incomplete right bundle-branch block now present Sinus tachycardia no longer present Electronically Signed On 04-13-22 16:08:42 CDT by Otto Tran
[2022-04-13] MEDS ORDERED: RISPERIDONE 1 MG TABLET ONE (21:13)
[2022-04-14] MEDS ORDERED: RISPERIDONE 1 MG TABLET PO ONE (15:00)
[2022-04-15 12:29] VITALS: O2SAT 100
[2022-04-15 12:40] VITALS: TEMP 98.6
[2022-04-15 12:42] VITALS: BP 122/73
== END 2022-04-15 12:12 | disposition home or self-care (01) ==
LOC: ER 12:31
DX: F14.10 Cocaine abuse, uncomplicated (principal); F55.8 Abuse of other non-psychoactive substances; T43.625A Adverse effect of amphetamines, initial encounter; F20.9 Schizophrenia, unspecified
CPT/HCPCS: 93005; 99284

== ENCOUNTER 2022-05-02 06:20 | Emergency (ER) | payer SELFPAY ==
--- OUTSIDE RECORDS SUMMARY | 2022-05-02 06:39 | XMS REPORT | Continuity of Care Document ---
:1990 Author Organization [facility] t Address [address] [place] [address] Care Team Providers Name Role Phone Pcp-None Primary Care Physician Unavailable ANNA MARIE DIAZ Attending Clinician Unavailable Adina Rincon DO Attending Clinician Anna Marie Diaz MD Attending Clinician YARI Attending Clinician Unavailable AMAURY COULTER Attending [...] Clinician Unavailable NANY SON Attending Clinician Unavailable China DELA CRUZ, Fausto Attending Clinician HOLLY BILLINGS Attending Clinician Unavailable Lexus CHAVIS, Lyle Otero Attending Clinician Roberto CHAVIS, Óscar Attending Clinician Dulce CHAVIS, Holly Chao Attending Clinician [phone] cR CHAVIS, Kiko Shannon Attending Clinician Juan SHEFFIELD, Adonis Geiger Attending Clinician Unavailable JAMES MELISSA Attending Clinician Unavailable Margo CHAVSI, Norbert Attending Clinician Mia CHAVIS, Lopez Edwards Attending Clinician James Melissa MD Attending Clinician MARIA INES BALLESTEROS Attending Clinician Unavailable MARIA INES BALLESTEROS Attending Clinician Unavailable PERFECTO GUTIERRES Attending Clinician Unavailable PERFECTO GUTIERRES Attending Clinician Unavailable Ld Franklin MD Attending Clinician Mariam Hernandez DO Attending Clinician Perfecto Gutierres DO Attending Clinician Lucien Alfaro MD Attending Clinician Vipul Barreto MD Attending Clinician Lashanda CHAVIS, Shyanne Narayanan Attending Clinician ROBERT STEVENS Attending Clinician Unavailable Robert Stevens MD Attending Clinician Domitila PATEL Attending Clinician Unavailable Domitila Fowler Attending Clinician Michael Carpenter MD Attending Clinician MICHAEL CARPENTER Attending Clinician Unavailable Susan Maza Attending Clinician SUSAN RON Attending Clinician Unavailable LOPEZ ACEVEDO Attending Clinician Unavailable [place] Attending Clinician Unavailable [place] Attending Clinician Unavailable [place] MD Attending Clinician Physician, No Primary or Family Admitting Clinician Unavailreyna GREENBERG Admitting Clinician Unavailable HOLLY BILLINGS Admitting Clinician Unavailable Holly Billings MD Admitting Clinician [phone] JAMES MELISSA Admitting Clinician Unavailable James Melissa MD Admitting Clinician MORRICAL, LOPEZ O Admitting Clinician Unavailable [place] Admitting Clinician Unavailable Payers Payer Name Policy Type Policy Number Effective Date Expiration Date S ource Problems Condition Condition Condition Status Onset Resolution Last Treating Co mments Source Name Details Category Date Date Treatment Clinician Date Rhabdomyol Rhabdomyol Disease Active U nivers ysis ysis 7-28 ity of 00:00: [address] Suicidal Suicidal Disease Active Unive rs ideations ideations 7-20 ity of 00:00: [address] Schizophre Schizophre Disease Active U nivers benjamín benjamín ity [facility] Polysubsta Polysubsta Disease Active U nivers nce abuse [facility] [place] Bipolar Bipolar Disease Active Univers disorder disorder ity [facility] Problem Problem [facility] S Health Allergies, Adverse Reactions, Alerts Allergy Allergy Status Severity Reaction(s) Onset Inactive Treating Comm ents Source Name Type Date Date Clinician prometha DA Active U Unknown [facility] zine 8 00:00: 00 aripipra DA Active U Unknown [facility] zole 817 00:00: 00 prometha DA Active U Unknown 0 [facility] zine 8-13 00:00: 00 aripipra DA Active U Unknown 0 [facility] zole 8 00:00: 00 prometha DA Active U Unknown 0 [facility] zine 8- 00:00: 00 aripipra DA [facility] 00 prometha DA Active U Unknown 0 [facility] zine 6-14 00:00: 00 aripipra DA Active U Unknown [facility] zole 6-14 00:00: 00 prometha DA Active MO 2020-0 [facility] zine 3-05 [place] 00:00: d 00 [facility] aripipra DA Active SV 2020-0 [facility] zole 3-05 [place] 00:00: d 00 [facility] prometha DA Active MO TREMORS 2020-0 [facility] zine 3-05 [place] 00:00: d 00 [facility] aripipra DA Active SV DYSTONIC 2020-0 [facility] zole REACTION 3-05 [place] 00:00: d 00 [facility] ARIPIPRA DRUG Active Anxiety 2019-0 Univers ZOLE INGREDI 5-06 ity of 00:00: [place] 00 [facility] PHENERGA DRUG Active Anxiety 2019-0 Univers N PLAIN 5-06 ity of 00:00: [place] 00 [facility] Aripipra Propensi Active Anxiety 2019-0 Unive rs zole ty to 5-06 ity of adverse 00:00: [place] reaction 00 [facility] Phenerga Propensi Active Anxiety 2019-0 Unive rs n Plain ty to 5-06 ity of adverse 00:00: [place] reaction 00 [facility] prometha Drug Active [facility] Abilify Drug Active [facility] prometha Drug Active [facility] Abilify Drug Active [facility] prometha Drug Active [facility] prometha Drug Active [facility] Abilify Drug Active [facility] Abilify Drug Active [facility] prometha Drug Active [facility] Abilify Drug Active [facility] prometha Drug Active [facility] Abilify Drug Active [facility] Social History Social Habit Start Date Stop Date Quantity Comments Source History of Passive smoker University of tobacco use [facility] Alcohol intake 2022-04-19 2022-04-19 Current drinker Unive rsity of 00:00:00 00:00:00 of alcohol [facility] (finding) Branch Exposure to 2022-04-08 2022-04-18 Not sure University SARS-CoV-2 00:00:00 13:45:00 [facility] (event) Branch Tobacco use and 2022-01-22 2022-01-22 Smokeless tobacco Un iversity of exposure 00:00:00 00:00:00 non-user [facility] Sex Assigned At [birth year] Female [facility] 00:00:00 00:00:00 Smoking Status Start Date Stop Date Source Unknown if ever smoked [facility] Smokes tobacco daily 2022-01-22 00:00:00 Univers ity of [facility] Medications Ordered Filled Start Stop Current Ordering Indication Dosage Frequency Signature Comments Components Source Medication Medication Date Date Medication? Clinician (SIG) Name Name risperiDONE 2021-06 Yes 2mg Take 2 mg U nivers (RISPERDAL) 0-23 by mouth ity of 2 mg tablet 16:10: at [place] [address] bedtime. [facility] Branch risperiDONE 2021-06 Yes [id number] .5mg Take 1 Univers 0.5 mg 0-23 tablet by ity of tablet 00:00: mouth in [place] 00 the morning Branch and 1 tablet in the evening. diazePAM No 5mg 5 mg, Slow Un tiffany (VALIUM) 02-04 IV Push, ity of injection 5 20:15: 20:14 [place]CE, 1 [place] 00 :00 dose, On Wed02/04/22 at 1515, STAT NaCl 0.9% 2021- No 1000mL at 999 Uni vers (NS) bolus 01-31 mL/hr, ity of infusion 04:00: 04:42 1,000 mL, [place] 1,000 mL 00 :00 IV Medical Infusion, Branch ONCE, 1 dose, On Wed01/30/22 at 2300, STAT NaCl 0.9% 2021- No 1000mL at 999 Uni vers (NS) bolus 01-31 mL/hr, ity of infusion 01:30: 02:50 1,000 mL, [place] 1,000 mL 00 :00 IV Medical Infusion, Branch ONCE, 1 dose, On Wed01/30/22 at 2030, STAT diazePAM 2021-2021- No 5mg 5 mg, Slow Un tiffany (VALIUM) 01-31 IV Push, ity of injection 5 00:30: 01:35 [place]CE[place] 1 [place] 00 :00 dose, On Wed5/22 Branch at 1930, STAT NaCl 0.9% 2021- No 1000mL at 999 Uni vers (NS) bolus 01-27 08-02 mL/hr, ity of infusion 03:15: 04:25 1,000 mL, [place] 1,000 mL 00 :00 IV Medical Infusion, Branch ONCE, 1 dose, On 01/26/22 at 2215, [place] dicyclomine 2021-0 Yes [id number] 20mg Take 1 Univers 20 mg 8-01 tablet by ity of tablet 00:00: mouth 4 [place] 00 (four) Medical times Branch daily. dicyclomine 2021-0 Yes [id number] 20mg Take 1 Univers 20 mg 8-01 tablet by ity of tablet 00:00: mouth 4 [place] 00 ([facility]) Medical times Branch daily. dicyclomine 2021-0 Yes [id number] 20mg Take 1 Univers 20 mg 8-01 tablet by ity of tablet 00:00: mouth 4 [place] 00 ([facility]) Medical times Branch daily. dicyclomine 2021-0 Yes [id number] 20mg Take 1 Univers 20 mg 8-01 tablet by ity of tablet 00:00: mouth 4 [place] 00 ([facility]) Medical times Branch daily. dicyclomine 2021-0 2021- No [id number] 20mg Take 1 Univers 20 mg 8-01 08-01 tablet by ity of tablet 00:00: 00:00 mouth 4 [place] 00 :00 ([facility]) Medical times Branch daily. traZODone 0 Yes 50mg 50 mg, Univer s (DESYREL) 01-25 Oral, QHS, ity of tablet 50 02:00: First dose [place] mg 00 (after Medical last Branch modificati on) on 01/24/22 at 2100, Until Discontinu ed, Routine risperiDONE 2021-0 Yes 2mg 2 mg, Unive rs (RISPERDAL) 01-25 Oral, QHS, it y of tablet 2 mg 02:00: First dose [place] 00 (after Medical last Branch modificati on) on 01/24/22 at 2100, Until Discontinu ed, Routine traZODone 2021-0 2021- No 50mg 50 mg, Unive rs (DESYREL) 01-23 Oral, ity of tablet 50 22:30: 21:32 ONCE, 1 [place] mg [place] :00 dose, On Medical Fri Branch 01/23/22 at 1730, Routine risperiDONE No 2mg 2 mg, Univ ers (RISPERDAL) 01-23 Oral, ity of tablet 2 mg 22:30: 21:32 ONCE, 1 [place] 00 :[place] dose, On Medical Fri Branch 01/23/22 at 1730, Routine risperiDONE 2021-0 Yes 2mg Take 2 mg U nivers (RISPERDAL) 7- by mouth ity of 2 mg tablet 18:04: at [place] [address] bedtime. Medical Branch traZODone 0 Yes 50mg Take 50 mg Un tiffany 50 mg 7-29 by mouth ity of tablet 18:04: at [place] [address] bedtime. Medical Branch risperiDONE 2021-0 Yes 2mg Take 2 mg U nivers (RISPERDAL) - by mouth ity of 2 mg tablet 18:04: at [place] [address] bedtime. Medical Branch traZODone 2021-0 Yes 50mg Take 50 mg Un [place] 50 mg 7-29 by mouth ity of tablet 18:04: at [place] [address] bedtime. Medical Branch risperiDONE 2021-0 Yes 2mg Take 2 mg U nivers (RISPERDAL) - by mouth ity of 2 mg tablet 18:04: at [place] [address] bedtime. Medical Branch traZODone 2021-0 Yes 50mg Take 50 mg Un [place] 50 mg 7-29 by mouth ity of tablet 18:04: at [place] [address] bedtime. Medical Branch risperiDONE 2021-0 Yes 2mg Take 2 mg U nivers (RISPERDAL) 7-29 by mouth ity of 2 mg tablet 18:04: at [place] [address] bedtime. Medical Branch traZODone 2021-0 Yes 50mg Take 50 mg Un [place] 50 mg 7-29 by mouth ity of tablet 18:04: at [place] [address] bedtime. Medical Branch traZODone 2021-0 Yes 50mg Take 50 mg Un [place] 50 mg 7-29 by mouth ity of tablet 18:04: at [place] [address] bedtime. Medical Branch lactated 2021-0 Yes 1000mL at 125 Unive rs ringers IV 7-29 mL/hr, ity of infusion 17:15: 1,000 mL, [place] 1,000 mL 00 IV Medical Infusion, Branch CONTINUOUS , Starting on Wed01/23/22 at 1215, Until Discontinu ed, Routine heparin Yes 5000U 5,000 Univers (porcine) 01-23 Units, ity of injection 01:00: Subcutaneo [place] 5,000 Units 00 us, Q12H, Med ical First dose Branch on Wed01/22/22 at 2000, Until Discontinu ed, Routine acetaminoph Yes 650mg 650 mg, Un tiffany en 01-23 Oral, ity of (TYLENOL) 00:32: Q6HPRN, [place] tablet 650 25 Starting Medic al mg on [place] Branch 01/22/22 at 1932, Until Discontinu ed, Routine, Pain (scale 1-3) lactated 2021- No 2000mL at 999 [facility] ers ringers IV 01-23 mL/hr, ity of infusion 00:15: 16:00 2,000 mL, [place] 2,000 mL 00 :53 IV Medical Infusion, Branch CONTINUOUS , Starting on Wed01/22/22 at 1915, Until Wed01/23/22 at 1100, Routine lactated 0 2021- No 2000mL at 999 [facility] ers ringers IV 01-22- mL/hr, ity of infusion 14:45: 13:39 2,000 mL, [place] 2,000 mL 00 :00 IV Medical Infusion, Branch ONCE, 1 dose, On Wed01/22/22 at 0945, TOMAS NaCl 0.9% 2021- No 1000mL at 999 [facility] vers (NS) bolus 01-22 mL/hr, ity of infusion 08:30: 10:30 1,000 mL, [place] 1,000 mL 00 :00 IV Medical Infusion, Branch ONCE, 1 dose, On Wed01/22/22 at 0330, STAT risperiDONE Yes 2mg Take 2 mg U nivers (RISPERDAL) 01-16 by mouth ity of 2 mg tablet 17:15: at [place] 41 bedtime. Medical Branch traZODone Yes 50mg Take 50 mg Un [place] 50 mg 01-16 by mouth ity of tablet 17:15: at [place] [address] bedtime. Medical Branch risperiDONE 0 Yes 2mg Take 2 mg U nivers (RISPERDAL) 01-16 by mouth ity of 2 mg tablet 17:15: at [place] [address] bedtime. Medical Branch traZODone 0 Yes 50mg Take 50 mg Un [place]iffany 50 mg 01-16 by mouth ity of tablet 17:15: at [place] [address] bedtime. Medical Branch lidocaine 0 202- No 1{patch 1 Patch, Univers (LIDODERM) 01-1623 } Topical, ity of 5 % (700 16:20: 06:53 Administer [place] mg/patch) 00 :00 over 12 Medical patch 1 Hours, Branch Patch ONCE, 1 dose, On Wed01/16/22 at 1130, Routine lactated 2021-0 Yes 1000mL at 125 Unive rs ringers IV 7-21 mL/hr, ity of infusion 17:15: 1,000 mL, [place] 1,000 mL 00 IV Medical Infusion, Branch CONTINUOUS , Starting on Wed01/15/22 at 1215, Until Discontinu ed, Routine lactated 2021-0 2021- No 1000mL at 999 Univ ers ringers IV 01-15 07-21 mL/hr, ity of infusion 14:00: 16:12 1,000 mL, [place] 1,000 mL 00 :21 Intravenou Medic al s, Branch CONTINUOUS , Starting on Wed01/15/22 at 0900, Until Wed01/15/22 at 1112, Routine traZODone 0 Yes 50mg 50 mg, Univer s (DESYREL) - Oral, QHS, ity of tablet 50 02:00: First dose [place] mg 00 on Wed01/14/22 at Branch 2100, Until Discontinu ed, Routine risperiDONE 2021-0 Yes 2mg 2 mg, Unive rs (RISPERDAL) - Oral, QHS, it y of tablet 2 mg 02:00: First dose [place] 00 on Wed01/14/22 at Branch 2100, Until Discontinu ed, Routine benztropine 2021-0 Yes 1mg 1 mg, Unive rs (COGENTIN) 01-15 Oral, BID, ity of tablet 1 mg 01:00: First dose [place] 00 on Wed Medical 01/14/22 at Branch 2000, Until Discontinu ed, Routine lactated 2021- No 1000mL at 1,000 Un tiffany ringers IV 01-14 07-21 mL/hr, ity of infusion 22:30: 04:29 1,000 mL, [place] 1,000 mL 00 :00 IV Medical Infusion, Branch CONTINUOUS , Starting on Wed01/14/22 at 1730, Until Wed01/14/22 at 2329, Routine enoxaparin Yes 30mg 30 mg, Unive rs (LOVENOX) 01-14 Subcutaneo ity of injection 22:00: [place], DAILY, [place] 30 mg 00 First dose Medical on Wed Branch 01/14/22 at 1700, Until Discontinu ed, Routine acetaminoph Yes 650mg 650 mg, Un tiffany en 01-14 Oral, ity of (TYLENOL) 16:06: Q6HPRN, [place] tablet 650 11 Starting Medic al mg on Wed01/14/22 at 1106, Until Discontinu ed, Routine, Pain (scale 1-3) lactated 2021- No 1000mL at 1,000 Un tiffany ringers IV 01-14 07-20 mL/hr, ity of infusion 15:15: 21:14 1,000 mL, [place] 1,000 mL 00 :00 IV Medical Infusion, Branch CONTINUOUS , Starting on Wed01/14/22 at 1015, Until Wed01/14/22 at 1614, Routine NaCl 0.9% No 2000mL at 999 Uni vers (NS) bolus 01-14-20 mL/hr, ity of infusion 13:45: 17:22 2,000 mL, [place] 2,000 mL 00 :00 IV Medical Infusion, Branch ONCE, 1 dose, On Wed01/14/22 at 0845, STAT divalproex No 500mg 500 mg, Un tiffany ER 01-0814 Oral, ity of (DEPAKOTE 12:00: 11:56 ONCE, 1 [place] ER) 24 hr 00 :00 dose, On Medica l tablet 500 [place] Branch mg 01/08/22 at 0700, Routine ibuprofen 2021-0 Yes 400mg 400 mg, Univ ers (IBU) 12-07 Oral, ity of tablet 400 03:07: Q6HPRN, [place] mg 33 Starting Medical on [facility] Branch 12/06/21 at 2207, Until Discontinu ed, TOMAS, Pain (scale 4-6) methocarbam 2021-0 Yes 500mg 500 mg, Un tiffany oL 12-07 Oral, ity of (ROBAXIN) 03:07: QIDPRN, [place] tablet 500 17 Starting Medic al mg on [facility] Branch 12/06/21 at 2207, Until Discontinu ed, Routine, Muscle Spasms OLANZapine 2021-0 Yes 5mg 5 mg, Univer s ZYDIS 12-07 Oral, BID, ity of (ZyPREXA 01:00: First dose [place] ZYDIS) 00 on [facility] Medical disintegrat 12/06/21 at Br anch ing tablet 2000, 5 mg Until Discontinu ed, TOMAS OLANZapine 2021-0 2021- No 5mg 5 mg, Unive rs ZYDIS 12-06 Oral, ity of (ZyPREXA 02:30: 01:37 ONCE, 1 [place] ZYDIS) 00 :00 dose, On Medical disintegrat Fri Branch ing tablet 12/05/21 at 5 mg 2130, TOMAS diazePAM 2021-0 2021- No 5mg 5 mg, Univers (VALIUM) 12-06 Oral, ity of tablet 5 mg 02:30: 01:36 ONCE, 1 [place] 00 :00 dose, On Medical Fri Branch 12/05/21 at 2130, TOMAS LORazepam 2021-0 2021- No 1mg 1 mg, Univer s (ATIVAN) 12-05 Oral, ity of tablet 1 mg 16:15: 16:36 ONCE, 1 [place] 00 :00 dose, On Medical Fri Branch 12/05/21 at 1115, TOMAS LORazepam 2021-0 2021- No 2mg 2 mg, Slow U nivers (ATIVAN) 11-22 IV Push, ity of injection 2 04:15: [...] No 10mg 10 mg, Univ ers (ZyPREXA) 09-24 Oral, ity of tablet 10 07:15: 06:13 ONCE, 1 [place] mg 00 :00 dose, On Wed Branch 09/24/21 at 0215, Routine PARoxetine No 20mg 20 mg, Univ ers (PAXIL) 09-24 Oral, ity of tablet 20 07:15: 06:27 ONCE, 1 [place] mg 00 :00 dose, On Wed Branch 09/24/21 at 0215, Routine divalproex No 500mg 500 mg, Un tiffany ER 09-24 Oral, ity of (DEPAKOTE 07:15: 07:15 ONCE, 1 [place] ER) 24 hr 00 :00 dose, On Medica l tablet 500 Wed Branch mg 09/24/21 at 0215, Routine acetaminoph 2019-06 No 650mg 650 mg, U nivers en 0-20 10-20 Oral, ity of (TYLENOL) 17:30: 17:12 ONCE, 1 [place] tablet 650 00 :00 dose, Tue Medi arturo mg 04/16/20 Branch at 1230, TOMAS LORazepam 2019- No 2mg 2 mg, Univer s (ATIVAN) 08-22 Oral, ity of tablet 2 mg 04:00: 02:54 ONCE, 1 [place] 00 :00 dose, Mon [facility] 08/21/19 at Branch 2200, TOMAS acetaminoph No 650mg 650 mg, U nivers en 08-14 Oral, ity of (TYLENOL) 02:00: 13:59 ONCE, 1 [place] tablet 650 00 :00 dose, Sun Medi arturo mg 08/13/19 at Branch 2000, TOMAS ketorolac 2019-0 2019- No 60mg 60 mg, Unive rs (TORADOL) 03-03 Intramuscu ity of injection 09:15: 08:38 lar, ONCE, [place] 60 mg 00 :00 1 dose, Medical 03/03/19 [place] at 0415, TOMAS
Fa culty member approving Restricted medication : ANNA MARIE DIAZ oxymetazoli 2019- No 1{spray 1 Hundred, [facility] 03-03 } Nasal, ity of (OXYMETAZOL 09:15: 08:42 ONCE, 1 [place] INE HCL) 00 :00 dose, Fri Medica l 0.05 % 03/03/19 at [place] nasal spray 0415, TOMAS 1 Hundred oxymetazoli 2018- No 2{spray 2 Hundred, [facility] 03-03 } Nasal, ity of (OXYMETAZOL 09:15: 08:03 ONCE, 1 [place] INE HCL) 00 :00 dose, Fri Medica l 0.05 % 03/03/19 at [place] nasal spray 0415, 2 Hundred Routine tetanus-dip 2019- No .5mL 0.5 mL, Un tiffany htheria 03-03 Intramuscu ity o f toxoids 09:00: 08:04 lar, ONCE, [place] as (TDVAX) 2-2 00 :00 1 dose, Medic al Lf unit/0.5 03/03/19 Br anch mL at 0400, injection Routine 0.5 mL divalproex 2019-0 Yes [id number] 1000mg Take 2 Univers (DEPAKOTE) 7-04 tablets by ity of 500 mg EC 00:00: mouth [place] tablet 00 every 12 Medical (twelve) Branch hours. divalproex 2019-0 Yes [id number] 1000mg Take 2 Univers (DEPAKOTE) 7-04 tablets by ity of 500 mg EC 00:00: mouth [place] tablet 00 every 12 Medical (twelve) Branch hours. divalproex 2019-0 Yes [id number] 1000mg Take 2 Univers (DEPAKOTE) 7-04 tablets by ity of 500 mg EC 00:00: mouth [place] tablet 00 every 12 Medical (twelve) Branch hours. divalproex 2019-0 Yes [id number] 1000mg Take 2 Univers (DEPAKOTE) 7-04 tablets by ity of 500 mg EC 00:00: mouth [place] tablet 00 every 12 Medical (twelve) Branch hours. divalproex Yes [id number] 1000mg Take 2 Univers (DEPAKOTE) 7-04 tablets by ity of 500 mg EC 00:00: mouth [place] tablet 00 every 12 Medical (twelve) Branch hours. divalproex Yes [id number] 1000mg Take 2 Univers (DEPAKOTE) 7-04 tablets by ity of 500 mg EC 00:00: mouth [place] tablet 00 every 12 Medical (twelve) Branch hours. divalproex Yes [id number] 1000mg Take 2 Univers (DEPAKOTE) 7-04 tablets by ity of 500 mg EC 00:00: mouth [place] tablet 00 every 12 Medical (twelve) Branch hours. divalproex Yes [id number] 1000mg Take 2 Univers (DEPAKOTE) 7-04 tablets by ity of 500 mg EC 00:00: mouth [place] tablet 00 every 12 Medical (twelve) Branch hours. divalproex Yes [id number] 1000mg Take 2 Univers (DEPAKOTE) 7-04 tablets by ity of 500 mg EC 00:00: mouth [place] tablet 00 every 12 Medical (twelve) Branch hours. divalproex Yes [id number] 1000mg Take 2 Univers (DEPAKOTE) 7-04 tablets by ity of 500 mg EC 00:00: mouth [place] tablet 00 every 12 Medical (twelve) Branch hours. divalproex 2021- No [id number] 1000mg Take 2 Univers (DEPAKOTE) 7-04 07-22 tablets by it y of 500 mg EC 00:00: 00:00 mouth [place] tablet 00 :00 every 12 Medical (twelve) Branch hours. acetaminoph 2018- Yes [id number] 1{tbl} Take 1 Univers en-codeine 6-22 tablet by ity of 300-30 mg 00:00: mouth [place] tablet 00 every 4 Medical (four) Branch hours as needed for Pain (scale 4-6) or Pain (scale 7-10). oxymetazoli Yes [id number] 1{spray Use 1 Univers ne (AFRIN, 6-22 } Hundred in ity o f OXYMETAZOLI 00:00: each [place],) 0.05 % 00 nostril as Me dical nasal spray needed Branch (epistaxis ). acetaminoph Yes [id number] 1{tbl} Take 1 Univers en-codeine 6-22 tablet by ity of 300-30 mg 00:00: mouth [place] tablet 00 every 4 Medical (four) Branch hours as needed for Pain (scale 4-6) or Pain (scale 7-10). oxymetazoli Yes [id number] 1{spray Use 1 Univers ne (AFRIN, 6-22 } Hundred in ity o f OXYMETAZOLI 00:00: each [place],) 0.05 % 00 nostril as Me dical nasal spray needed Branch (epistaxis ). acetaminoph Yes [id number] 1{tbl} Take 1 Univers en-codeine 6-22 tablet by ity of 300-30 mg 00:00: mouth [place] tablet 00 every 4 Medical (four) Branch hours as needed for Pain (scale 4-6) or Pain (scale 7-10). oxymetazoli Yes [id number] 1{spray Use 1 Univers ne (AFRIN, 6-22 } Hundred in ity o f OXYMETAZOLI 00:00: each [place],) 0.05 % 00 nostril as Me dical nasal spray needed Branch (epistaxis ). acetaminoph Yes [id number] 1{tbl} Take 1 Univers en-codeine 6-22 tablet by ity of 300-30 mg 00:00: mouth [place] tablet 00 every 4 Medical (four) Branch hours as needed for Pain (scale 4-6) or Pain (scale 7-10). oxymetazoli Yes [id number] 1{spray Use 1 Univers ne (AFRIN, 6-22 } Hundred in ity o f OXYMETAZOLI 00:00: each [place],) 0.05 % 00 nostril as Me dical nasal spray needed Branch (epistaxis ). acetaminoph 2020- No [id number] 1{tbl} Take 1 Univers en-codeine 6-22 02-23 tablet by ity of 300-30 mg 00:00: 00:00 mouth [place] tablet 00 :00 every 4 Medical (four) Branch hours as needed for Pain (scale 4-6) or Pain (scale 7-10). oxymetazoli 2020- No [id number] 1{spray Use 1 Univers ne (AFRIN, 12-17 } Hundred in ity of OXYMETAZOLI 00:00: 00:00 each [facility],) 0.05 % 00 :00 nostril as Me dical nasal spray needed Branch (epistaxis ). Immunizations Ordered Filled Immunization Date Status Comments [facility] e Immunization Name Name Td 2019-03-03 Completed University of 00:00:00 [facility] 2019-03-03 Completed University of 00:00:00 [facility] 2019-03-03 Completed University of 00:00:00 [facility] 2019-03-03 Completed University of 00:00:00 [facility] 2019-03-03 Completed University of 00:00:00 [facility] 2019-03-03 Completed University of 00:00:00 [facility] 2019-03-03 Completed University of 00:00:00 [facility] 2019-03-03 Completed University of 00:00:00 [facility] 2019-03-03 Completed University of 00:00:00 [facility] 2019-03-03 Completed University of 00:00:00 [facility] 2019-03-03 Completed University of 00:00:00 [facility] 2019-03-03 Completed University of 00:00:00 [facility] 2019-03-03 Completed University of 00:00:00 [facility] 2019-03-03 Completed University of 00:00:00 [facility] 2019-03-03 Completed University of 00:00:00 [facility] 2019-03-03 Completed University of 00:00:00 [facility] Vital Signs Vital Name Observation Time Observation Value Comments Source Heart rate 2022-04-19 02:48:00 104 /min [facility] Body temperature 2022-04-19 02:48:00 37.06 [facility] Respiratory rate 2022-04-19 02:48:00 19 /min [facility] Systolic blood 2022-04-19 02:05:00 104 mm[Hg] Univer sity of pressure [facility] [place] Diastolic blood 2022-04-19 02:05:00 87 mm[Hg] [facility] Oxygen saturation in 2022-04-19 02:05:00 96 /min [facility] [place] [employer] [facility] Pulse oximetry Branch Body height 2022-04-18 18:49:00 172.7 cm [facility] Body weight 2022-04-18 18:49:00 83.915 kg [facility] BMI 2022-04-18 18:49:00 28.13 kg/m2 [facility] Systolic blood 2022-02-04 19:21:00 120 mm[Hg] [facility] Diastolic blood 2022-02-04 19:21:00 82 mm[Hg] [facility] Heart rate 2022-02-04 19:21:00 103 /min [facility] Body temperature 2022-02-04 19:21:00 36.89 Lela [facility] Respiratory rate 2022-02-04 19:21:00 25 /min [facility] Body weight 2022-02-04 19:21:00 83.915 kg [facility] BMI 2022-02-04 19:21:00 28.13 kg/m2 [facility] Oxygen saturation in 2022-02-04 19:21:00 96 /min [facility] blood by [facility] Pulse oximetry Branch Systolic blood 2022-01-31 14:27:00 135 mm[Hg] [facility] Diastolic blood 2022-01-31 14:27:00 91 mm[Hg] [facility] Heart rate 2022-01-31 14:27:00 99 /min [facility] Respiratory rate 2022-01-31 14:27:00 18 /min [facility] Oxygen saturation in 2022-01-31 14:27:00 96 /min [facility] blood by [facility] arturo Pulse oximetry Branch Body temperature 2022-01-31 00:14:00 37.33 Lela [facility] Body weight 2022-01-31 00:14:00 83.915 kg [facility] BMI 2022-01-31 00:14:00 28.13 kg/m2 [facility] Systolic blood 2022-01-27 04:14:00 110 mm[Hg] [facility] Diastolic blood 2022-01-27 04:14:00 70 mm[Hg] [facility] Heart rate 2022-01-27 04:14:00 56 /min [facility] Respiratory rate 2022-01-27 04:14:00 18 /min [facility] Oxygen saturation in 2022-01-27 04:14:00 98 /min [facility] [place] [facility] Body temperature 2022-01-27 00:11:00 36.83 Lela [facility] Systolic blood 2022-01-23 16:37:00 124 mm[Hg] [facility] Diastolic blood 2022-01-23 16:37:00 85 mm[Hg] [facility] Heart rate 2022-01-23 16:37:00 85 /min [facility] Body temperature 2022-01-23 16:37:00 36.78 Lela [facility] Respiratory rate 2022-01-23 16:37:00 18 /min [facility] Oxygen saturation in 2022-01-23 16:37:00 94 /min [facility] [place] [employer] [facility] Body height 2022-01-23 01:52:00 172.7 cm [facility] Body weight 2022-01-23 01:52:00 75.978 kg [facility] BMI 2022-01-23 01:52:00 25.47 kg/m2 [facility] Systolic blood 2022-01-16 15:59:00 125 mm[Hg] [facility] Diastolic blood 2022-01-16 15:59:00 73 mm[Hg] [facility] Heart rate 2022-01-16 15:59:00 66 /min [facility] Body temperature 2022-01-16 15:59:00 36.33 Lela [facility] Respiratory rate 2022-01-16 15:59:00 17 /min [facility] Oxygen saturation in 2022-01-16 15:59:00 97 /min [facility] blood by [facility] Pulse oximetry Branch Body height 2022-01-15 03:16:00 172.7 cm [facility] Body weight 2022-01-15 03:16:00 80.967 kg [facility] BMI 2022-01-15 03:16:00 27.14 kg/m2 [facility] Systolic blood 2022-01-08 09:28:00 120 mm[Hg] [facility] Diastolic blood 2022-01-08 09:28:00 77 mm[Hg] [facility] Heart rate 2022-01-08 09:28:00 123 /min [facility] Body temperature 2022-01-08 09:28:00 37.78 Lela [facility] Respiratory rate 2022-01-08 09:28:00 20 /min [facility] Body weight 2022-01-08 09:28:00 77.111 kg [facility] BMI 2022-01-08 09:28:00 25.85 kg/m2 [facility] Oxygen saturation in 2022-01-08 09:28:00 98 /min [facility] blood by [facility] Pulse oximetry Branch Systolic blood 2021-12-08 22:24:00 111 mm[Hg] [facility] Diastolic blood 2021-12-08 22:24:00 66 mm[Hg] [facility] Heart rate 2021-12-08 22:24:00 73 /min [facility] Body temperature 2021-12-08 22:24:00 36.94 Lela [facility] Respiratory rate 2021-12-08 22:24:00 16 /min [facility] Oxygen saturation in 2021-12-08 22:24:00 98 /min [facility] by [facility] Pulse oximetry Branch Body weight 2021-12-05 07:41:00 77.111 kg [facility] BMI 2021-12-05 07:41:00 25.85 kg/m2 [facility] Systolic blood 2021-11-22 05:19:00 136 mm[Hg] [facility] Diastolic blood 2021-11-22 05:19:00 83 mm[Hg] [facility] Heart rate 2021-11-22 05:19:00 113 /min [facility] Respiratory rate 2021-11-22 05:19:00 19 /min [facility] Oxygen saturation in 2021-11-22 05:19:00 100 /min [facility] [place] [employer] Pulse oxim[facility] Branch Body temperature 2021-11-22 02:47:00 36.61 Lela [facility] Body weight 2021-11-22 02:47:00 77.111 kg [facility] BMI 2021-11-22 02:47:00 25.85 kg/m2 [facility] Systolic blood 2021-09-24 09:06:00 130 mm[Hg] [facility] Diastolic blood 2021-09-24 09:06:00 87 mm[Hg] [facility] Heart rate 2021-09-24 09:06:00 115 /min [facility] Respiratory rate 2021-09-24 09:06:00 20 /min [facility] Oxygen saturation in 2021-09-24 09:06:00 96 /min [facility] [place] [employer] [facility] Body temperature 2021-09-24 05:04:00 37 Lela [facility] Body height 2021-09-24 05:04:00 172.7 cm [facility] Body weight 2021-09-24 05:04:00 77.111 kg [facility] BMI 2021-09-24 05:04:00 25.85 kg/m2 [facility] Systolic blood 2020-04-16 17:31:00 146 mm[Hg] [facility] Diastolic blood 2020-04-16 17:31:00 99 mm[Hg] [facility] Heart rate 2020-04-16 17:31:00 90 /min [facility] Respiratory rate 2020-04-16 17:31:00 18 /min [facility] Oxygen saturation in 2020-04-16 17:31:00 99 /min [facility] [place] [employer] [facility] P[facility] Body temperature 2020-04-16 15:36:00 36.56 Lela [facility] Body weight 2020-04-16 15:36:00 68.04 kg [facility] BMI 2020-04-16 15:36:00 23.49 kg/m2 [facility] Systolic blood 2019-08-22 18:00:00 128 mm[Hg] [facility] Diastolic blood 2019-08-22 18:00:00 84 mm[Hg] [facility] Heart rate 2019-08-22 18:00:00 76 /min [facility] Respiratory rate 2019-08-22 18:00:00 16 /min [facility] [place] [facility] Oxygen saturation in 2019-08-22 18:00:00 99 /min [facility] [place] [employer] [facility] P[facility] o[facility] Body temperature 2019-08-22 10:53:00 36.78 Lela [facility] Body weight 2019-08-21 03:07:00 63.504 kg [facility] BMI 2019-08-21 03:07:00 21.93 kg/m2 [facility] Systolic blood 2019-08-22 18:00:00 128 mm[Hg] [facility] Diastolic blood 2019-08-22 18:00:00 84 mm[Hg] [facility] Heart rate 2019-08-22 18:00:00 76 /min [facility] Respiratory rate 2019-08-22 18:00:00 16 /min [facility] Oxygen saturation in 2019-08-22 18:00:00 99 /min [facility] [place] [employer] [facility] Body temperature 2019-08-22 10:53:00 36.78 Lela [facility] [place] [facility] Body weight 2019-08-21 03:07:00 63.504 kg [facility] BMI 2019-08-21 03:07:00 21.93 kg/m2 [facility] Systolic blood 2019-08-18 01:47:00 155 mm[Hg] [facility] Diastolic blood 2019-08-18 01:47:00 90 mm[Hg] [facility] Heart rate 2019-08-18 01:47:00 102 /min [facility] Body temperature 2019-08-18 01:47:00 36.67 Lela [facility] Respiratory rate 2019-08-18 01:47:00 20 /min [facility] Body weight 2019-08-18 01:47:00 70.308 kg [facility] BMI 2019-08-18 01:47:00 24.28 kg/m2 [facility] Oxygen saturation in 2019-08-18 01:47:00 99 /min [facility] blood by [employer] Pulse oxim[facility] Branch Systolic blood 2019-08-18 01:47:00 155 mm[Hg] [facility] Diastolic blood 2019-08-18 01:47:00 90 mm[Hg] [facility] Heart rate 2019-08-18 01:47:00 102 /min [facility] Body temperature 2019-08-18 01:47:00 36.67 Lela [facility] Respiratory rate 2019-08-18 01:47:00 20 /min [facility] Body weight 2019-08-18 01:47:00 70.308 kg [facility] BMI 2019-08-18 01:47:00 24.28 kg/m2 [facility] Oxygen saturation in 2019-08-18 01:47:00 99 /min [facility] Arter[facility] blood by [employer] arturo Pulse oxim[facility] Branch Systolic blood 2019-08-13 23:34:00 119 mm[Hg] [facility] Diastolic blood 2019-08-13 23:34:00 67 mm[Hg] [facility] Heart rate 2019-08-13 23:34:00 85 /min [facility] Body temperature 2019-08-13 23:34:00 37.06 Lela [facility] Respiratory rate 2019-08-13 23:34:00 18 /min [facility] Body height 2019-08-13 23:34:00 170.2 cm [facility] Body weight 2019-08-13 23:34:00 68.947 kg [facility] BMI 2019-08-13 23:34:00 23.81 kg/m2 [facility] Oxygen saturation in 2019-08-13 23:34:00 99 /min [facility] [place] [employer] [facility] P[facility] Branch Systolic blood 2019-08-13 23:34:00 119 mm[Hg] [facility] Diastolic blood 2019-08-13 23:34:00 67 mm[Hg] [facility] Heart rate 2019-08-13 23:34:00 85 /min [facility] Body temperature 2019-08-13 23:34:00 37.06 Lela [facility] Respiratory rate 2019-08-13 23:34:00 18 /min [facility] Body height 2019-08-13 23:34:00 170.2 cm [facility] Body weight 2019-08-13 23:34:00 68.947 kg [facility] BMI 2019-08-13 23:34:00 23.81 kg/m2 [facility] Oxygen saturation in 2019-08-13 23:34:00 99 /min [facility] [place] [employer] [facility] P[facility] Systolic blood 2019-03-03 08:00:00 143 mm[Hg] [facility] Diastolic blood 2019-03-03 08:00:00 99 mm[Hg] [facility] Heart rate 2019-03-03 08:00:00 85 /min [facility] Respiratory rate 2019-03-03 08:00:00 16 /min [facility] Oxygen saturation in 2019-03-03 08:00:00 99 /min [facility] [place] [employer] [facility] Body weight 2019-03-03 07:55:00 72.122 kg Universi ty [facility] Body temperature 2019-03-03 07:42:00 36.94 Lela [facility] blood 2019-03-03 08:00:00 143 mm[Hg] Univer sity of pressure [facility] [place] Diastolic blood 2019-03-03 08:00:00 99 mm[Hg] Unive rsity of pressure [facility] [place] Heart rate 2019-03-03 08:00:00 85 /min Universi ty [facility] Respiratory rate 2019-03-03 08:00:00 16 /min [facility] Oxygen saturation in 2019-03-03 08:00:00 99 /min [facility] Arterial blood by [facility] Pulse oximetry Branch Body weight 2019-03-03 07:55:00 72.122 [facility] Body temperature 2019-03-03 07:42:00 36.94 Lela [facility] Height/Length 2021-07-15 10:28:49 172 cm Measured [...] kg BP Diastolic 2020-08-03 15:36:00 81 mm[Hg] [facility] BP Systolic 2020-08-03 15:36:00 114 mm[Hg] [facility] Heart Rate 2020-08-03 15:36:00 69 /min [facility] Respiratory rate 2020-08-03 15:36:00 18 /min [facility] Temperature 2020-08-03 15:36:00 98.7 [degF] [facility] BP Diastolic 2020-08-03 15:10:00 81 mm[Hg] [facility] BP Systolic 2020-08-03 15:10:00 114 mm[Hg] [facility] Heart Rate 2020-08-03 15:10:00 69 /min [facility] Respiratory rate 2020-08-03 15:10:00 18 /min [facility] Body Temperature 2020-08-03 15:10:00 98.7 [degF] [facility] Procedures Procedure Date / Time Performing Clinician Source Performed URINE DRUG (IMMUNOASSAY) 2022-04-18 23:41:00 Adina Rincon [facility] SCREEN W/O REFLEX HB ECG ROUTINE & RHYTHM 2022-04-18 21:29:52 Adina Rincon [facility] COMP. METABOLIC PANEL 2022-04-18 19:14:00 Adina Rincon [facility] ([id number]) [facility] SALICYLATE 2022-04-18 19:14:00 Adina Rincon [facility] ETHANOL 2022-04-18 19:14:00 Adina Rincon [facility] CBC WITH DIFF 2022-04-18 19:14:00 Adina Rincon [facility] COVID-19 (ID NOW RAPID 2022-04-18 19:14:00 Adina Rincon [facility]) [facility] NOTICE OF PRIVACY 2022-04-18 18:39:42 Doctor Unassigned, [facility] PRACTICES Marquez [facility] CONSENT/REFUSAL FOR 2022-04-18 18:37:57 Doctor Unassigned, [facility] DIAGNOSIS AND TREATMENT Marquez [facility] COVID-19 (MOLECULAR 2022-01-31 09:18:00 Mariam Palencia [facility] TESTING [facility] NUCLEIC ACID AMPLIFICATION) URINALYSIS 2022-01-31 02:58:00 Mariam Palencia [facility] URINE DRUG (IMMUNOASSAY) 2022-01-31 02:58:00 Mariam Palencia [facility] SCREEN W/O REFLEX CREATINE KINASE 2022-01-31 01:37:00 Mariam Palencia [facility] THYROID STIMULATING 2022-01-31 01:37:00 Mariam Palencia [facility] HORMONE [facility] COMP. METABOLIC PANEL 2022-01-31 01:37:00 Mariam Palencia [facility] ([id number]) Medical Branch SALICYLATE 2022-01-31 01:37:00 Mariam Palencia [facility] ETHANOL 2022-01-31 01:37:00 Mariam Palencia [facility] CBC WITH DIFF 2022-01-31 01:37:00 Mariam Palencia [facility] COVID-19 (ID NOW RAPID 2022-01-31 01:37:00 Mariam Palencia [facility] TESTING) [facility] URINALYSIS 2022-01-27 02:59:00 [place] [facility] CREATINE KINASE 2022-01-27 02:40:00 [place] [facility] LIPASE 2022-01-27 02:40:00 [place] [facility] COMP. METABOLIC PANEL 2022-01-27 02:40:00 China [facility] ([id number]) [facility] CBC WITH DIFF 2022-01-27 02:40:00 [place] [facility] CREATINE KINASE 2022-01-23 19:30:00 Jailyn [facility] BASIC METABOLIC PANEL 2022-01-23 19:30:00 [facility] (NA, K, CL, CO2, GLUCOSE, Medica l Branch BUN, CREATININE, [place]) CREATINE KINASE 2022-01-23 10:57[facility]-23 10:57:00 [facility] BASIC METABOLIC PANEL 2022-01-23 10:57:00 [facility] (NA, K, CL, CO2, GLUCOSE, Medica l Branch BUN, CREATININE, CA) CBC WITH DIFF 2022-01-23 10:57[facility] 2022-01-22 21:24:00 Roberto [facility] MYOGLOBIN SERUM 2022-01-22 21:24:00 Ashvin [facility] COVID-19 (ID NOW RAPID 2022-01-22 21:24:00 Óscar Mejia [facility] TESTING) Medical Branch LAB ONLY COVID 2022-01-22 21:24:00 Roberto [facility] URINE DRUG (IMMUNOASSAY) 2022-01-22 10:41:00 Lyle Alberts [facility] - COMPREHENSIVE DRUG Medical [facility] SCREEN URINALYSIS 2022-01-22 10:41:00 Ashvin [facility] CREATINE KINASE 2022-01-22 06:25:00 [place], [facility] COMP. METABOLIC PANEL 2022-01-22 06:25:00 Lyle Alberts [facility] ([id number]) Medical Branch SALICYLATE 2022-01-22 06:25:00 [place], [facility] ETHANOL 2022-01-22 06:25:00 [place], [facility] CBC WITH DIFF 2022-01-22 06:25:00 [place], [facility] COVID-19 (ID NOW RAPID 2022-01-22 06:25:00 Lyle Alberts [facility] TESTING) Medical Branch LAB ONLY COVID 2022-01-22 06:25:00 Lyle Alberts [facility] CREATINE KINASE 2022-01-16 09:08:00 [facility] MAGNESIUM 2022-01-16 09:08:00 Mary [facility] BASIC METABOLIC PANEL 2022-01-16 09:08:00 Sandra Hernandez [facility] (NA, K, CL, CO2, GLUCOSE, [employer] Medica l Branch BUN, CREATININE, CA) CREATINE KINASE 2022-01-15 17:25:00 [facility] 2022-01-15 09:43:00 Saurabh [facility] MAGNESIUM 2022-01-15 09:43:00 [facility]OLIC PANEL 2022-01-15 09:43:00 [facility] (NA, K, CL, CO2, GLUCOSE, Medica l Branch BUN, CREATININE, CA) CBC WITH DIFF 2022-01-15 09:43:00 [facility] CREATINE KINASE 2022-01-14 22:44:00 [facility]AT[facility] 2022-01-14 17:43:00 [facility] BASIC METABOLIC PANEL 2022-01-14 17:43:00 [facility] (NA, K, CL, CO2, GLUCOSE, Medica l Branch BUN, CREATININE, CA) URINALYSIS 2022-01-14 05:31:00 Margo [facility] URINE DRUG (IMMUNOASSAY) 2022-01-14 05:31:00 Norbert Aragon [facility] SCREEN W/O REFLEX CREATINE KINASE 2022-01-14 04:51:00 Margo [facility] COMP. METABOLIC PANEL 2022-01-14 04:51:00 Norbert Aragon [facility] ([id number]) [facility] SALICYLATE 2022-01-14 04:51:00 Margo [facility] ETHANOL 2022-01-14 04:51:00 [facility] WITH DIFF 2022-01-14 04:51:00 Margo [facility] COVID-19 (ID NOW RAPID 2022-01-14 04:51:00 Margo [facility] TESTING) Medical Branch LAB ONLY COVID 2022-01-14 04:51:00 Margo [facility] INTERPRETATION [facility] URINALYSIS 2021-12-05 16:37:00 Mariam Hernandez [facility] URINE DRUG (IMMUNOASSAY) 2021-12-05 09:48:00 Ld [facility] DRUG Medical Bra nch SCREEN CREATINE KINASE 2021-12-05 08:34:00 Ld [facility] COMP. METABOLIC PANEL 2021-12-05 08:34:00 Ld [facility] ([id number]) Medical Branch ETHANOL 2021-12-05 08:34:00 Ld [facility] SERUM DRUG (IMMUNOASSAY) 2021-12-05 08:34:00 Ld [facility] - COMPREHENSIVE DRUG Medical [facility] SCREEN CBC WITH DIFF 2021-12-05 08:34:00 Ld [facility] COVID-19 (MOLECULAR 2021-12-05 08:34:00 Ld [facility] TESTING [facility] NUCLEIC ACID AMPLIFICATION) LAB ONLY COVID 2021-12-05 08:34:00 Ld [facility] INTERPRETATION [facility] CREATINE KINASE 2021-11-22 04:56:00 [facility] CREATINE KINASE 2021-11-22 03:55:00 [facility] COMP. METABOLIC PANEL 2021-11-22 03:55:00 Robert Stevens [facility] ([id number]) [facility] SALICYLATE 2021-11-22 03:10:00 [facility] ETHANOL 2021-11-22 03:10:00 [facility] CBC WITH DIFF 2021-11-22 03:10:00 [facility] COVID-19 (ID NOW RAPID 2021-11-22 03:10:[address] [facility]) Medical Branch XR FINGERS 2 VW RIGHT 2020-04-16 16:58:04 Domitila Patel [facility] XR CERVICAL SPINE 3 VW 2020-04-16 16:57:12 Domitila Patel [facility] GALV/CLC ONLY - URINE 2019-08-21 04:53:00 Michael Carpenter [facility] DRUG (IMMUNOASSAY) - Medical [facility] COMPREHENSIVE DRUG SCREEN URINALYSIS 2019-08-21 04:53:00 Michael Carpenter [facility] CREATINE KINASE 2019-08-21 03:32:00 Maureen [facility] HEPATIC FUNCTION PANEL 2019-08-21 03:32:00 Michael Carpenter [facility] ([id number]) (ALB,T.PRO,BILI Medical Branch T,BU/BC,ALT,AST,ALK PHOS) BASIC METABOLIC PANEL 2019-08-21 03:32:00 Michael Carpenter [facility] (NA, K, CL, CO2, GLUCOSE, Medica l Branch BUN, CREATININE, CA) SALICYLATE 2019-08-21 03:32:00 Carmelo Michael [facility] ETHANOL 2019-08-21 03:32:00 Carmelo [facility] CBC WITH DIFFERENTIAL 2019-08-21 03:32:00 Michael Carpenter [facility] EMERGENCY DEPARTMENT 2019-08-20 06:01:00 Doctor Unassigned, [facility] DOCUMENTS Marquez [facility] CT CERVICAL SPINE WO 2019-08-14 00:32:44 Lopez Acevedo [facility] CONTRAST [facility] CT HEAD WO CONTRAST 2019-08-14 00:32:44 Lopez Acevedo [facility] XR CHEST 2 VW 2019-08-14 00:25:39 Lopez Acevedo [facility] XR HAND 3+ VW RIGHT 2019-03-03 08:22:02 [facility] Encounters Start End Encounter Admission Attending Care Care Encounter Source Date/Time Date/Time Type Type Clinicians Facility Department ID 2022-04-10 Outpatient [facility] [id number] [place] 22:42:33 [id number] [facility] 2022-03-30 Outpatient [facility] [id number] [place] 22:23:43 [id number] [facility] 2022-03-09 Emergency HFD HFD [id number] GAYE - 11:55:17 Marcella Fire Depart ent 2022-01-22 Outpatient [facility] [id number] [place] 17:40:51 [id number] [facility] 2021-12-05 Outpatient [facility] [id number] [place] 15:34:09 [id number] [facility] 2021-04-20 Outpatient CAROLYNN PRADHAN [id number] CHRISTU 22:53:11 [id number] [facility] 2019-09-01 Inpatient HCAPM KAYLEE [id number] [facility] 06:12:00 46 [facility] 2019-08-31 Inpatient HCAPM KAYLEE [id number] [facility] 19:06:00 66 [facility] 2022-04-18 2022-04-19 Emergency X JOE [facility] ERT [id number] Univers 13:56:00 17:25:00 ANNA MARIE kline [facility] 2022-04-18 2022-04-19 Emergency Adina Rincon [facility] 1.2.8 40.114 [id number] Univers 13:56:00 17:25:00 Anna Marie Diaz [facility]13.10 [facility] 4.2.7.2.686 [facility] [id number] [address] 2022-04-18 2022-04-18 Outpatient JOHN_CINDY_ [facility] 577 878- [place] 00:00:00 00:00:00 [id number] [facility] 2022-03-21 2022-03-21 Outpatient JOHN_CINDY_ [facility] 577 878- Domenica 00:00:00 00:00:00 [id number] [facility] 2022-03-09 2022-03-09 Outpatient JOHN_CINDY_ [facility] 577 878- Domenica 00:00:00 00:00:00 [id number] [facility] l [facility] 2022-02-12 2022-02-13 Emergency [facility] [id number] Max 08:44:00 20:25:00 [facility] 2022-02-12 2022-02-12 Emergency 1 JEANMARIE RAMON [facility] [id number] [place] 08:44:00 08:44:00 [facility] 2022-02-11 2022-02-11 Emergency Emergency Guerrero [facility] [id number] [facility] 04:57:00 09:50:00 Anabel Sage 2022-02-11 2022-02-11 Emergency [facility] [id number] [facility] 04:57:00 04:57:00 71 2022-02-09 2022-02-10 Emergency E BIRGIT, [facility] [id number] MHH 21:11:00 21:33:00 DICK 2022-02-09 2022-02-09 Emergency E [facility], [facility] 7500 [facility] 09:41:00 17:31:00 DICK 2022-02-07 2022-02-07 Emergency Emergency Guirges, [facility] [id number] [facility] 11:37:00 20:30:00 Hemal 49 2022-02-07 2022-02-07 Emergency [facility] [id number] [facility] 11:37:00 11:37:00 49 2022-02-07 2022-02-07 Emergency Emergency Afuwape, [facility] [id number] [facility] 00:06:00 07:50:00 Lukuman 29 2022-02-07 2022-02-07 Emergency Emergency Afuwape, [facility] DK706 [id number] [facility] 00:06:00 00:06:00 Lukuman 29 2022-02-05 2022-02-05 Emergency Emergency Ham, Jose [facility] [id number] [facility] 18:15:00 21:41:00 61 2022-02-05 2022-02-05 Emergency Emergency Guirges, [facility] [id number] [facility] 14:52:00 17:19:00 Hemal 27 2022-02-05 2022-02-05 Emergency [facility] [id number] [facility] 14:52:00 14:52:00 27 2022-02-04 2022-02-04 Emergency X TALHA, [facility] ERT [id number] Univers 14:23:00 16:58:00 MARIAM ity of [facility] 2022-02-04 2022-02-04 Emergency Palencia, TRAUMA 1.2.123.971 [id number] Univers 14:23:00 16:58:00 [facility] 350.1.13.10 [place] [id number] [facility] [address] 2022-01-30 2022-01-31 Emergency X MARCOS VILLA [facility] ERT [id number] Univers 19:17:00 10:00:00 MARCOS VILLA ity of [facility] 2022-01-30 2022-01-31 Emergency Mariam Palencia TRAUMA 1.2.840 .114 [id number] Univers 19:17:00 10:00:00 Vipul Marcos [facility] 350.1.13.10 [place] [id number] [place] [address] [address] 2022-01-26 2022-01-26 Emergency X NANY SON [facility] ERT 1 [id number] Univers 19:15:00 23:37:00 NANY SON it of [facility] 2022-01-26 2022-01-26 Emergency Fausto Atkinson TRAUMA 1.2.840.1 14 [id number] Univers 19:15:00 23:37:00 Nany Son [place] 350.1.13.10 [place] [id number] [place] [address] [address] 2022-01-22 2022-01-23 Inpatient X [facility] [id number] Univers 00:46:00 17:25:00 [facility] 2022-01-22 2022-01-23 Hospital Lyle Alberts 1.2.840.1 14 [id number] Univers 00:46:00 17:25:00 Encounter Óscar Mejia 350.1.13.10 [facility] 4.2.7.2. 686 [place] Kiko Tatum [id number] Medical 5 Branch 2022-01-19 2022-01-19 Transition IAN Martinez 1.2.840.114 [id number] Univers 00:00:00 00:00:00 of Care Adonis FREEMAN 350.1.13.10 [place] of [place] [id number] [facility] [address] 2022-01-13 2022-01-16 Inpatient X BELÉN [facility] [id number] Univers 18:13:00 17:03:00 JAMES ity of [facility] 2022-01-13 2022-01-16 [facility] Norbert Aragon 1.2.840. 114 [id number] Univers 18:13:00 17:03:00 Encounter Nany Son 350.1.13.10 ity of [facility] [place] 4.2.7.2.686 [place] James Melissa [id number] [facility] 0[address] 2022-01-08 2022-01-08 Emergency X MARIA INES BALLESTEROS [facility] ERT 1 [id number] Univers 04:31:00 07:37:00 MARIA INES BALLESTEROS ity of [facility] 2022-01-08 2022-01-08 Emergency Kalpesh, TRAUMA 1.2.487.834 [id number] Univers 04:31:00 07:37:00 [facility] 350.1.13.10 it y of 4.2.7.2.686 [facility] [id number] [facility] [address]14 [address] 2021-12-05 2021-12-08 Emergency X PERFECTO GUTIERRES [facility] ERT 1 [id number] Univers 02:46:00 18:40:00 PERFECTO GUTIERRES ity of [facility] 2021-12-05 2021-12-08 [address] Franklin TRAUMA 1.2.840.1 14 [id number] Univers 02:46:00 18:40:00 Mariam Hernandez [place]EN 350.1.13.10 ity of Perfecto Gut[place] 4.2.7.2.686 [place] Lucien Alfaro [id number] [facility] Vipul Barreto [address] [place] [address] Shyanne Pyle S 2021-11-21 2021-11-22 Emergency X ROBERT STEVENS [facility] ERT [id number] Univers 21:50:00 00:44:00 ity of [facility] 2021-11-21 2021-11-22 Emergency Stevens, Robert TRAUMA 1.2.840.114 [id number] Univers 21:50:00 00:44:00 W CENTER 350.1.13.10 it y of 4.2.7.2.686 [facility] [id number] [facility] [address]14 Branch 2021-09-24 2021-09-24 Emergency X Domitila PATEL [facility] ERT [id number] Univers 00:12:00 04:10:00 ity of [facility] 2021-09-24 2021-09-24 Emergency Amanda [facility] 1.2.840.114 [id number] Univers 00:12:00 04:10:00 Dayana SIMPSON 350.1.13.10 i ty of [facility] 4.2.7.2.686 [facility] [id number] [facility] 0[address] Branch 2020-08-03 2020-08-03 Departed CAROLYNN PRADHAN [id number] [place]RI[place] 15:06:00 15:37:00 Emergency 36 [facility] 2020-04-16 2020-04-16 Emergency Domitila Patel [facility] 1.2.840.114 [id number] Univers 10:38:00 14:15:00 Dayana Simpson 350.1.13.10 i ty of [place] 4.2.7.2.686 [facility] [id number] [facility] 084 Branch 2020-04-16 2020-04-16 Emergency X Domitila PATEL [facility] ERT [id number] Univers 10:38:00 10:38:00 ity of [facility] 2019-09-20 2019-09-20 Outpatient [facility] [id number] [place] 00:00:00 00:00:00 Health 2019-08-31 2019-08-31 Emergency [facility] [id number] [place] 01:49:22 01:49:22 Health 2019-08-20 2019-08-22 Emergency Schoenstein, Michael TRAUMA 1.2.8 40.114 [id number] 21:07:32 13:58:00 Lucien Alfaro CENTER 350.1.13.10 4.2.7.2.686 [id number] 014 2019-08-20 2019-08-22 Emergency Schoenstein, Michael TRAUMA 1.2.8 40.114 [id number] Univers 21:07:32 13:58:00 Lucien Alfaro E CENTER 350.1.13.10 [place] [id number] [address] 2019-08-20 2019-08-20 Emergency X [facility] ERT [id number] Univers 21:07:32 21:07:32 , MICHAEL ity [facility] 2019-08-17 2019-08-17 Emergency Chelsea, TRAUMA 1.2.740.935 [id number] 19:59:42 20:28:00 Katye R CENTER 350.1.13.10 4.2.7.2.686 [id number] 014 2019-08-17 2019-08-17 Emergency X CHELSEA, [facility] ERT [id number] Univers 19:59:42 20:28:00 KATYE ity [facility] 2019-08-17 2019-08-17 Emergency Chelsea, TRAUMA 1.2.017.710 [id number] Univers 19:59:42 20:28:00 Katye R CENTER 350.1.13.10 [place] [id number] [address] 2019-08-13 2019-08-13 Emergency Morrical, TRAUMA 1.2.840.114 [id number] 17:35:49 19:40:00 Lopez O CENTER 350.1.13.10 4.2.7.2.686 [id number] 014 2019-08-13 2019-08-13 Emergency X MORRICAL, [facility] ERT [id number] Univers 17:35:49 19:40:00 LOPEZ ity [facility] 2019-08-13 2019-08-13 Emergency Morrical, TRAUMA 1.2.840.114 [id number] Univers 17:35:49 19:40:00 Lopez O CENTER 350.1.13.10 [place] [id number] [address] 2019-03-03 2019-03-03 Emergency Yarima, [facility] 1.2.933.950 [id number] 02:40:06 03:52:00 Anna Marie Simpson 350.1.13.10 [place] 4.2.7.2.686 [place] [id number] [facility] 2019-03-03 2019-03-03 Emergency Joe [facility] 1.2.650.397 [id number] 4455 [facility] 02:40:06 03:52:00 Anna Marie Simpson 350.1.13.10 ity of [place] 4.2.7.2.686 [facility] [id number] [place] [address] Branch 2019-02-17 2019-02-17 Emergency [facility] [id number] [place] 07:34:17 07:34:17 Health 2019-02-17 2019-02-17 Emergency [facility] [id number] Max 02:21:51 02:21:51 [facility] 2019-01-21 2019-01-31 Inpatient 1 En Cota [facility] PSY [id number] St. 10:32:00 13:54:00 [facility] 2019-01-21 2019-01-[address]114 [id number] 694 15:06:32 23:59:00 Encounter [facility] 350.1.13.10 MEDICAL 4.2.7.2.686 [place] [id number] [facility] 2019-01-21 2019-01-[address]114 [id number] 694 [facility] 15:06:32 23:59:00 Encounter [facility] 350.1.13.10 ity of [facility] 4.[address].7.[address] [place] [address] [id number] [place] [address] Branch 2018-11-01 2018-11-09 Inpatient 1 En [place]ota [facility] PSY [id number] St. 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 Analgesic and Antipyretic Use ? 20- 100 mg/L ? ? Anti-Inflammatory Use ? 100-250 mg/L Toxic Range: ? Greater than 300 mg/[facility] CenterCOMP. METABOLIC PANEL (11010)2022-04-18 20:08:25 Test Item Value Reference Range Interpretation Comments NA (test code = 140 mmol/L 135-145 2650655345) K (test code = 5.0 mmol/L 3.5-5 6437657973) CL (test code = 98 mmol/L 98-108 3740814110) CO2 TOTAL (test code = 23 mmol/L 23-31 0560658767) AGAP (test code = 2-16 H 6450048403) BUN (test code = 20 mg/dL 7-23 7517973409) GLUCOSE (test code = 111 mg/dL 70-110 H 5490122890) CREATININE (test code = 1.40 mg/dL 0.6-1.25 H 2824242422) TOTAL BILI (test code = 0.8 mg/dL 0.1-1.6 8841392913) CALCIUM (test code = 10.4 mg/dL 8.6-10.6 6166476677) T PROTEIN (test code = 8.1 g/dL 6.3-8.2 2941971213) ALBUMIN (test code = 5.5 g/dL 3.5-5 H 5540151849) ALK PHOS (test code = 89 U/L 34-122 2741229013) ALTv (test code = 33 U/L 50 1742-6) AST(SGOT) (test code = 106 U/L 13-40 H 0326255585) eGFR (test code = mL/min/1.73m2 0522927582) JAYLON (test code = JAYLON) Association of [...] tests). Lab Interpretation Abnormal (test code = 56619-2) [facility] WITH [id number] 20:04:48 Test Item Value Reference Range Interpretation Comments WBC (test code = See_Comment H [Automated 9690-2) message] The system which generated this result transmit lázaro reference range : 4.20 - 10.70 10*3/?L. The reference range was not used to interpret this result as normal/abnormal . RBC (test code = See_Comment H [Automated 069-8) message] The system which generated this result transmit lázaro reference range : 4.26 - 5.52 10*6/?L. The reference range was not used to interpret this result as normal/abnormal . HGB (test code = 16.4 g/dL 12.2-16.4 718-7) HCT (test code = 47.6 % 38.4-49.3 4544-3) MCV (test code = 85.6 fL 81.7-95.6 787-2) MCH (test code = 29.5 pg 26.1-32.7 785-6) MCHC (test code = 34.5 g/dL 31.2-35 786-4) RDW-SD (test code = 38.8 fL 38.5-51.6 96877-8) RDW-CV (test code = 12.6 % 12.1-15.4 788-0) PLT (test code = See_Comment [Automated 777-3) message] The system which generated this result transmit lázaro reference range : 150 - 328 10*3/ ?L. The reference range was not u sed to interpret th is result as normal/abnormal . MPV (test code = 11.2 fL 9.8-13 86524-0) NRBC/100 WBC (test See_Comment [Automat ed code = 0718940808) message] The system which generated this result transmit lázaro reference range : 0.0 - 10.0 /100 WBCs. The reference range was not used to interpret this result as normal/abnormal . NRBC x10^3 (test code See_Comment [Auto mated = 8558474489) message] The system which generated this result transmit lázaro reference range : 10*3/?L. The reference range was not used to interpret this result as normal/abnormal . GRAN MAT (NEUT) % 78.4 % (test code = 770-8) IMM GRAN % (test code 0.50 % = 1274043217) LYMPH % (test code = 13.5 % 736-9) MONO % (test code = 6.8 % 5905-5) EOS % (test code = 0.1 % 713-8) BASO % (test code = 0.7 % 706-2) GRAN MAT x10^3(ANC) 11.88 10*3/uL 1.99-6.95 H (test code = 8132168902) IMM GRAN x10^3 (test 0.08 10*3/uL 0-0.06 H code = 3722703386) LYMPH x10^3 (test code 2.05 10*3/uL 1.09-3.23 = 731-0) MONO x10^3 (test code 1.03 10*3/uL 0.36-1.02 H = 742-7) EOS x10^3 (test code = 0.06-0.53 L 711-2) BASO x10^3 (test code 0.10 10*3/uL 0.01-0.09 H = 704-7) Lab Interpretation Abnormal (test code = 64526-6) [facility] RNA Resp Ql VANE+ufcph4177-59-16 14:18:35 Test Item Value Reference Range Interpretation Comments Hospitalized? (test Yes code = 97836-6) ICU? (test code = No 95766-7) Symptomatic as defined No by CDC? (test code = 41580-9) Employed in No Healthcare? (test code = 71785-1) Resident in a No congregate care setting (including nursing homes, residential care for people with intellectual and developmental disabilities, psychiatric treatment facilities, group homes, board and care homes, homeless detention, foster care or other): (test code = 62146-5) SARS-CoV-2 RNA Resp Ql NOT DETECTED Not Detected INTER PRETATION: No VANE+probe (test code = detec table levels 31127-7) of SARS-CoV-2 Coronavirus (COVID-19) were present in this patient's sampl e by this test. A no t detected result does not exclud e the possibility of active infectio n with this virus due to other factor s that may affect the results such as a poorly collecte d sample, viral titers below th e limit of detect ion of the assay, a nd the infrequent possibility of inhibitors in t he sample. This re sult should be interpreted in conjunction wit h clinical, radiographic, a nd other laborator y findings and sh ould not be used as the sole indicator of active infectio n with SARS-CoV-2 Coronavirus (COVID-19). COMMENT: This lilli real-time reverse transcriptase polymerase chain reaction (RT-PCR) test rapidly detects SARS-CoV-2 (COVID-19) virus from nasopharyngeal and nasal swab specimens. In accordance with the FDA's guidance document "Policy for Diagnostic Tests for Coronavirus Disease-2019 during the Public Health Emergency", this test was developed, and its performance characteristics were verified by the [facility] molecular diagnostics laboratory and is authorized for clinical diagnostic use. This laboratory is certified under the Clinical Laboratory Improvement Amendments (CLIA) as qualified to perform high complexity clinical laboratory testing.HHSUA, Urinalysis Rflx Cult/Bwavz2271-50-45 05:36:00 Test Item Value Reference Range Interpretation Comments Color,Urine (test code = UCOL) Yellow Yellow Clarity,Urine (test code = Clear Clear UCLAR) Ph, Urine (test code = UPH) 7.0 5.0-9.0 N Specific [place],Urine (test 1.025 1.005-1.030 N code = USG) [...] = ULEU) UF REFLEXComplete Blood Count Auto Ctsv7744-40-00 05:36:00 Test Item Value Reference Range Interpretation [...] (test code = NRBCP) 0 % Urine Igzzcsucnxf3687-44-70 05:36:00 Test Item Value Reference Range Interpretation Comments RBC,Urine (test code = URBC.ADDING MACHINE SERVICER) 0-2 /HPF 0-2 WBC,Urine (test code = UWBC.ADDING MACHINE SERVICER) 0-5 /HPF 0-5 Bacteria,Urine (test code = Few /HPF None Seen A UBACT.ADDING MACHINE SERVICER) Squamous Epithelial Cell,Urine (test 0-5 /HPF 0-5 code = USQEPI.ADDING MACHINE SERVICER) Amorphous Crystals,Urine (test code Few /HPF None Seen A = UAMSE) Hyaline Casts,Urine (test code = 0-2 None Seen A UHYALC.XX) Granular Casts,Urine (test code = 0-1 None Seen A UGRANC.XX) UF REFLEXComprehensive Metabolic Htzes6008-70-48 05:36:00 Test Item Value Reference Range Interpretation [...] 74 U/L 46-116 N = ALP) Ethanol Citbv2597-85-12 05:36:00 Test Item Value Reference Range Interpretation Comments Ethanol (test code 3 mg/dL The pharm acological = ETOH) response to blo od alcohol levels mayvary from individual to i ndividual. The fatal giovanna ntrationhas been reported t o be >400mg/dL. Drug Screen,Qqqar4136-71-13 05:36:00 Test Item Value Reference Range Interpretation [...] (test code = UPROP) Coronavirus PCR, COVID19 Ztkzj0889-26-92 05:36:00 Test Item Value Reference Range Interpretation Comments Coronavirus PCR, COVID19 Rapid (test code = SARSCOV2) Coronavirus PCR, COVID19 Reference Range: Rapid (test code = Negative MIIQZVO38.1) SARS-CoV-2 PCR Result: Negative by RT-PCR (test code = SARS-CoV-2 PCR Result:) COVID-19 Status: AsymptomaticUA, Urinalysis Rflx Cult/[id number] 12:22:00 Test Item Value Reference Range Interpretation Comments Color,Urine (test code = UCOL) Yellow Yellow Clarity,Urine (test code = Clear Clear UCLAR) Ph, Urine (test code = UPH) 5.5 5.0-9.0 N Specific [place],Urine (test 1.015 1.005-1.030 N code = USG) [...] Negative code = ULEU) UF REFLEXUF REFLEXUrine Ztdkgazuymk2479-91-41 12:22:00 Test Item Value Reference Range Interpretation Comments RBC,Urine (test code = URBCUF) None Seen /HPF 0-2 WBC,Urine (test code = UWBCUF) 0-5 /HPF 0-5 Epithelial Cell,Urine (test 0-5 /HPF 0-5 code = UECUF) Casts,Urine (test code = 0-5 /LPF None Seen UCASTUF) Bacteria,Urine (test code = None Seen /hpf None Seen UBACTUF) UF REFLEXUF REFLEXDrug Screen,[id number] 12:22:00 Test Item Value Reference Range Interpretation [...] code = UPROP) Complete Blood Count Auto Vvws9520-88-65 11:59:00 Test Item Value Reference Range Interpretation [...] code = NRBCP) 0 % Comprehensive Metabolic Tspjb8934-61-94 11:59:00 Test Item Value Reference Range Interpretation [...] 68 U/L 46-116 N = ALP) Ethanol [id number] 11:59:00 Test Item Value Reference Range Interpretation Comments Ethanol (test code < 3 mg/dL The pharm acological = ETOH) response to blo od alcohol levels mayvary from individual to i ndividual. The fatal giovanna ntrationhas been reported t o be >400mg/dL. UA, Urinalysis Rflx Cult/Etqsl8348-23-18 04:55:00 Test Item Value Reference Range Interpretation Comments Color,Urine (test code = UCOL) Yellow Yellow Clarity,Urine (test code = Clear Clear UCLAR) Ph, Urine (test code = UPH) 5.5 5.0-9.0 N Specific [place],Urine (test 1.010 1.005-1.030 N code = USG) [...] Negative mg/dL Negative code = ULEU) Drug Screen,[id number] 04:55:00 Test Item Value Reference Range Interpretation [...] Negative Urine (test code = UPROP) Lactic [id number] 04:50:00 Test Item Value Reference Range Interpretation Comments Lactic Acid (test code = LACTIC) 1.0 mmol/L 0.5-2.0 N Troponin I High [id number] 04:40:00 Test Item Value Reference Range Interpretation [...] evaluated in conjunctionwith clinical findin gs. Creatine Mhabbc3716-87-10 01:15:00 Test Item Value Reference Range Interpretation Comments Creatine Kinase (test code = CK) 477 U/L 46-171 H Troponin I High Srnfgzeqxwm5720-73-19 01:15:00 Test Item Value Reference Range Interpretation [...] evaluated in conjunctionwith clinical findin gs. Lactic [id number] 01:15:00 Test Item Value Reference Range Interpretation Comments Lactic Acid (test 4.5 mmol/L 0.5-2.0 HH Critical v alue called code = LACTIC) to walter schuster ck by amber marcus[] on: 02/07/22 at 021 4by RDB11. Lactic Acid Collected YProthrombin Time [id number] 01:15:00 Test Item Value Reference Range Interpretation [...] 3.5 Mechanical Hear t, Intracardiac Thrombosis. Blood [id number] 01:15:00 Test Item Value Reference Range Interpretation Comments Blood Culture (test NO GROWTH AFTER 5 DAYS code = BC) Blood Tangyte1929-11-68 01:15:00 Test Item Value Reference Range Interpretation Comments Blood Culture (test NO GROWTH AFTER 5 DAYS code = BC) Complete Blood Count Auto [id number] 00:39:00 Test Item Value Reference Range Interpretation [...] code = NRBCP) 0 % Comprehensive Metabolic [id number] 00:39:00 Test Item Value Reference Range Interpretation [...] 73 U/L 46-116 N = ALP) Ethanol [id number] 00:39:00 Test Item Value Reference Range Interpretation Comments Ethanol (test code < 3 mg/dL The pharm acological = ETOH) response to blo od alcohol levels mayvary from individual to i ndividual. The fatal giovanna ntrationhas been reported t o be >400mg/dL. Coronavirus PCR, COVID19 [id number] 00:20:00 Test Item Value Reference Range Interpretation Comments Coronavirus PCR, For use under Emergency COVID19 Rapid (test Use Authorization (EUA) code = SARSCOV2) only. Coronavirus PCR, Reference Range: COVID19 Rapid (test Negative code = BEWUQRG12.1) SARS-CoV-2 PCR Result: Negative by RT-PCR (test code = SARS-CoV-2 PCR Result:) COVID-19 Status: AsymptomaticUA, Urinalysis Rflx Cult/[id number] 15:17:00 Test Item Value Reference Range Interpretation Comments Color,Urine (test code = UCOL) Yellow Yellow Clarity,Urine (test code = Clear Clear UCLAR) Ph, Urine (test code = UPH) 6.0 5.0-9.0 N Specific [place],Urine (test >= 1.030 1.005-1.030 N code = [...] Negative code = ULEU) UF REFLEXUF REFLEXUrine [id number] 15:17:00 Test Item Value Reference Range Interpretation Comments RBC,Urine (test code = URBCUF) 0-2 /HPF 0-2 WBC,Urine (test code = UWBCUF) 6-10 /HPF 0-5 A Epithelial Cell,Urine (test None Seen /HPF 0-5 code = UECUF) Casts,Urine (test code = None Seen /LPF None Seen UCASTUF) Bacteria,Urine (test code = None Seen /hpf None Seen UBACTUF) UF REFLEXUF REFLEXComprehensive Metabolic [id number] 15:17:00 Test Item Value Reference Range Interpretation [...] 69 U/L 46-116 N = ALP) Ethanol [id number] 15:17:00 Test Item Value Reference Range Interpretation Comments Ethanol (test code < 3 mg/dL The pharm acological = ETOH) response to blo od alcohol levels mayvary from individual to i ndividual. The fatal giovanna ntrationhas been reported t o be >400mg/dL. Coronavirus PCR, COVID19 [id number] 15:17:00 Test Item Value Reference Range Interpretation Comments Coronavirus PCR, For use under Emergency COVID19 Rapid (test Use Authorization (EUA) code = SARSCOV2) only. Coronavirus PCR, Reference Range: COVID19 Rapid (test Negative code = YLEOJSL03.1) SARS-CoV-2 PCR Result: Negative by RT-PCR (test code = SARS-CoV-2 PCR Result:) COVID-19 Status: AsymptomaticComplete Blood Count Auto [id number] 15:17:00 Test Item Value Reference Range Interpretation [...] (test code = NRBCP) 0 % Drug Screen,Vkypd4271-69-27 15:17:00 Test Item Value Reference Range Interpretation [...] Urine (test code = UPROP) Thyroid Stimulating Mbhpukr5309-72-69 02:36:01 Test Item Value Reference Range Interpretation Comments TSH (test code = See_Comment [Automated message] [id number]) The system T[employer] generated this result transmitted ref erence range: 0.45 - 4 .70 mIU/L. The refe rence range was not u sed to interpret this result as normal/abnor mal. Lab Interpretation (test Normal code = 57467-1) [facility] with Fxhuweksrmpi2823-52-94 02:18:20 Test Item Value Reference Range Interpretation Comments WBC (test code = See_Comment H [Automated 6090-2) message] The system which generated this result transmit lázaro reference range : 4.20 - 10.70 10*3/?L. The reference range was not used to interpret this result as normal/abnormal . RBC (test code = See_Comment [Automated 448-8) message] The system which generated this result [...] RDW-SD (test code = 41.8 fL 38.5-51.6 28314-0) RDW-CV (test code = 13.5 % 12.1-15.4 788-0) PLT (test code = See_Comment H [Automated 777-3) message] The system which generated this result transmit lázaro reference range : 150 - 328 10*3/ ?L. The reference range was not u sed to interpret th is result as normal/abnormal . MPV (test code = 10.9 fL 9.8-13 56092-1) NRBC/100 WBC (test See_Comment [Automat ed code = 9944869530) message] The system which generated this result transmit lázaro reference range : 0.0 - 10.0 /100 WBCs. The reference range was not used to interpret this result as normal/abnormal . NRBC x10^3 (test code See_Comment [Auto mated = 4129549531) message] The system which generated this result transmit lázaro reference range : 10*3/?L. The reference range was not used to interpret this result as normal/abnormal . GRAN MAT (NEUT) % 89.5 % (test code = 770-8) IMM GRAN % (test code 0.60 % = 4785343044) LYMPH % (test code = 4.7 % 736-9) MONO % (test code = 4.9 % 5905-5) EOS % (test code = 0.0 % 713-8) BASO % (test code = 0.3 % 706-2) GRAN MAT x10^3(ANC) 15.88 10*3/uL 1.99-6.95 H (test code = 9604707200) IMM GRAN x10^3 (test 0.11 10*3/uL 0-0.06 H code = 2235907735) LYMPH x10^3 (test code 0.83 10*3/uL 1.09-3.23 L = 731-0) MONO x10^3 (test code 0.87 10*3/uL 0.36-1.02 = 742-7) EOS x10^3 (test code = 0.06-0.53 L 711-2) BASO x10^3 (test code 0.06 10*3/uL 0.01-0.09 = 704-7) Lab Interpretation Abnormal (test code = 12122-9) [facility] 02:11:53 SALICYLATE<10mg/L01/30/2022 9:11 PM [facility] LABORATORY SERVICESTherapeutic Range: ? Analgesic and Antipyretic Use ? 20-100 mg/L ? ? Anti- Inflammatory Use ? 100-250 mg/L Toxic Range: ? Greater than 300 mg/LUnMatagorda Regional Medical CenterEthanol (ETOH) Hqjew1772-95-51 02:11:48ALCOHOL<10mg/dL01/30/2022 9:11 PM [facility] LABORATORY SERVICESToxic Greater than or equal to 80 mg/dL. NOTE: Whole blood values are approximately 10% to 15% lower than serum and plasma.[facility]ownAcetaminophen2022-08-06 02:07:57 Test Item Value Reference Range Interpretation Comments ACETAMINOP (test code = 10-30 L 5685329339) JAYLON (test code = JAYLON) Toxic: Greater than 200 ug/mL @ 4 hour post ingestion or greater than 50 ug/mL @ 12 hour post ingestion Lab Interpretation (test Abnormal code = 18343-8) [facility]ownComprehensive Metabolic Panel (04064) 2022-01-31 02:03:55 Test Item Value Reference Range Interpretation Comments NA (test code = 143 mmol/L 135-145 0598103355) K (test code = 4.7 mmol/L 3.5-5 3040176389) CL (test code = 108 mmol/L 98-108 5969213162) CO2 TOTAL (test code = 21 mmol/L 23-31 L 2139664091) AGAP (test code = 2-16 7422549600) BUN (test code = 16 mg/dL 7-23 6602305485) GLUCOSE (test code = 119 mg/dL 70-110 H 4896238743) CREATININE (test code = 1.65 mg/dL 0.6-1.25 H 4294932939) TOTAL BILI (test code = 0.6 mg/dL 0.1-1.3 7552898177) CALCIUM (test code = 10.4 mg/dL 8.6-10.6 3042275122) T PROTEIN (test code = 9.1 g/dL 6.3-8.2 H 6655510159) ALBUMIN (test code = 5.7 g/dL 3.5-5 H 8685525907) ALK PHOS (test code = 92 U/L 34-122 6958951189) ALTv (test code = 21 U/L 5-50 1742-6) AST(SGOT) (test code = 31 U/L 13-40 2761869064) eGFR (test code = mL/min/1.73m2 9913199030) JAYLON (test code = JAYLON) Association of [...] tests). Lab Interpretation Abnormal (test code = 89153-2) [facility]own[facility] Svaueg8029-54-87 02:03:55 Test Item Value Reference Range Interpretation Comments CK (test code = 6196808864) 531 U/L 33-194 H Lab Interpretation (test code = Abnormal 14244-3) [facility]ownCOMP. METABOLIC PANEL (50877)2022-01-27 03:11:03 Test Item Value Reference Range Interpretation Comments NA (test code = 140 mmol/L 135-145 5732008089) K (test code = 4.7 mmol/L 3.5-5 6990647910) CL (test code = 105 mmol/L 98-108 0742342616) CO2 TOTAL (test code 28 mmol/L 23-31 = 1523700303) AGAP (test code = 2-16 5842449713) BUN (test code = 11 mg/dL 7-23 1222835508) GLUCOSE (test code = 93 mg/dL 70-110 5907649995) CREATININE (test code 1.14 mg/dL 0.6-1.25 = 0677390482) TOTAL BILI (test code 0.3 mg/dL 0.1-1.1 = 4614201209) CALCIUM (test code = 9.2 mg/dL 8.6-10.6 2562504030) T PROTEIN (test code 7.4 g/dL 6.3-8.2 = 4964766138) ALBUMIN (test code = 4.7 g/dL 3.5-5 3834696616) ALK PHOS (test code = 84 U/L 34-122 9858600967) ALTv (test code = 28 U/L 5-50 1742-6) AST(SGOT) (test code 31 U/L 13-40 = 5129577329) eGFR (test code = mL/min/1.73m2 5905708145) JAYLON (test code = JAYLON) Association of [...] or urine or abnormalities in imaging tests). [facility]ownCREATINE [id number] 03:11:03 Test Item Value Reference Range Interpretation Comments CK (test code = 2345036273) 453 U/L 33-194 H Lab Interpretation (test code = Abnormal 31524-7) [facility]ownLIPASE2022-08-02 03:11:03 Test Item Value Reference Range Interpretation Comments LIPASE (test code = 4187028675) 100 U/L 0-220 Lab Interpretation (test code = Normal 46583-2) [facility]ownCB WITH [id number] 02:54:01 Test Item Value Reference Range Interpretation Comments WBC (test code = See_Comment [Automated 9443-2) message] The sy stem which generated this result transmitted reference range : 4.20 - 10.70 10*3/?L. The reference range was not used to interpret this result as normal/abnormal . RBC (test code = See_Comment [Automated 618-2) message] The sy stem which generated this [...] RDW-SD (test code = 42.4 fL 38.5-51.6 05483-0) RDW-CV (test code = 13.1 % 12.1-15.4 788-0) PLT (test code = See_Comment H [Automated 777-3) message] The sy stem which generated this result transmitted reference range : 150 - 328 10*3/ ?L. The reference r daja was not used to interpret this result as normal/abnormal . MPV (test code = 10.9 fL 9.8-13 08725-0) NRBC/100 WBC (test See_Comment [Automat ed code = 0772323849) message] The system which generated this result transmitted reference range : 0.0 - 10.0 /100 WBCs. The refer ence range was not u sed to interpret th is result as normal/abnormal . NRBC x10^3 (test code See_Comment [Auto mated = 8908842532) message] The s ystem which generated this result transmitted reference range : 10*3/?L. The reference range was not used to interpret this result as normal/abnormal . GRAN MAT (NEUT) % 60.6 % (test code = 770-8) IMM GRAN % (test code 0.20 % = 2028967699) LYMPH % (test code = 31.9 % 736-9) MONO % (test code = 5.1 % 5905-5) EOS % (test code = 1.4 % 713-8) BASO % (test code = 0.8 % 706-2) GRAN MAT x10^3(ANC) 5.72 10*3/uL 1.99-6.95 (test code = 0157104185) IMM GRAN x10^3 (test 0-0.06 code = 9191225023) LYMPH x10^3 (test code 3.01 10*3/uL 1.09-3.23 = 731-0) MONO x10^3 (test code 0.48 10*3/uL 0.36-1.02 = 742-7) EOS x10^3 (test code = 0.13 10*3/uL 0.06-0.53 711-2) BASO x10^3 (test code 0.08 10*3/uL 0.01-0.09 = 704-7) Lab Interpretation Abnormal (test code = 11389-1) [facility]ptownMYOGLOBIN [id number] 03:50:24 Test Item Value Reference Range Interpretation Comments MYOGLOB S (test code 266.9 ng/mL See_Comment H [Autom ated = 3477979512) message] The system which generated this result transmitted reference range : <=121.0. The reference range was not used to interpret this result as normal/abnormal . JAYLON (test code = JAYLON) Biotin has been reported to cause a negative bias, interpret results relative to patient's use of biotin. Lab Interpretation Abnormal (test code = 50605-9) [facility]ownCREATINE [id number] 22:44:03 Test Item Value Reference Range Interpretation Comments CK (test code = 5145242836) 3562 U/L 33-194 H Slight hemolysis Lab Interpretation (test Abnormal code = 90861-2) [facility] UptownACETAMINOPHEN2022-07-28 06:53:54 Test Item Value Reference Range Interpretation Comments ACETAMINOP (test code = 10-30 L 0337212462) JAYLON (test code = JAYLON) Toxic: Greater than 200 ug/mL @ 4 hour post ingestion or greater than 50 ug/mL @ 12 hour post ingestion Lab Interpretation (test Abnormal code = 12615-4) [facility]ownSALICYLATE2022-07-28 06:53:34 SALICYLATE<10mg/L01/22/2022 1:53 AM [facility] LABORATORY SERVICESTherapeutic Range: ? Analgesic and Antipyretic Use ? 20-100 mg/L ? ? Anti- Inflammatory Use ? 100-250 mg/L Toxic Range: ? Greater than 300 mg/LUnMatagorda Regional Medical CenterETHANOL2022-07-28 06:53:29ALCOHOL<10mg/dL01/22/2022 1:53 AM CDTUT LABORATORY SERVICESToxic Greater than or equal to 80 mg/dL. NOTE: Whole blood values are approximately 10% to 15% lower than serum and plasma.[facility]. METABOLIC PANEL (95474)2022-01-22 06:49:56 Test Item Value Reference Range Interpretation Comments NA (test code = 143 mmol/L 135-145 3892044712) K (test code = 4.4 mmol/L 3.5-5 7496919530) CL (test code = 103 mmol/L 98-108 6496267522) CO2 TOTAL (test code = 25 mmol/L 23-31 6722738822) AGAP (test code = 2-16 3452935508) BUN (test code = 16 mg/dL 7-23 0958622499) GLUCOSE (test code = 138 mg/dL 70-110 H 7440524998) CREATININE (test code = 1.23 mg/dL 0.6-1.25 5749829136) TOTAL BILI (test code = 0.5 mg/dL 0.1-1.6 3809045280) CALCIUM (test code = 10.0 mg/dL 8.6-10.6 1676283138) T PROTEIN (test code = 8.3 g/dL 6.3-8.2 H 5016913707) ALBUMIN (test code = 5.3 g/dL 3.5-5 H 9264715186) ALK PHOS (test code = 79 U/L 34-122 2850699514) ALTv (test code = 44 U/L 5-50 1742-6) AST(SGOT) (test code = 36 U/L 13-40 9281661155) eGFR (test code = mL/min/1.73m2 2362630573) JAYLON (test code = JAYLON) Association of [...] tests). Lab Interpretation Abnormal (test code = 06281-2) [facility]ownCREATINE [id number] 06:49:56 Test Item Value Reference Range Interpretation Comments CK (test code = 6989358756) 602 U/L 33-194 H Lab Interpretation (test code = Abnormal 44276-6) [facility]ownCB WITH [id number] 06:33:58 Test Item Value Reference Range Interpretation Comments WBC (test code = See_Comment H [Automated 8381-2) message] The system which generated this result transmit lázaro reference range : 4.20 - 10.70 10*3/?L. The reference range was not used to interpret this result as normal/abnormal . RBC (test code = See_Comment [Automated 227-8) message] The system which generated this result [...] RDW-SD (test code = 42.5 fL 38.5-51.6 94370-3) RDW-CV (test code = 13.3 % 12.1-15.4 788-0) PLT (test code = See_Comment H [Automated 777-3) message] The system which generated this result transmit lázaro reference range : 150 - 328 10*3/ ?L. The reference range was not u sed to interpret th is result as normal/abnormal . MPV (test code = 10.9 fL 9.8-13 47019-0) NRBC/100 WBC (test See_Comment [Automat ed code = 5195081706) message] The system which generated this result transmit lázaro reference range : 0.0 - 10.0 /100 WBCs. The reference range was not used to interpret this result as normal/abnormal . NRBC x10^3 (test code See_Comment [Auto mated = 1449675317) message] The system which generated this result transmit lázaro reference range : 10*3/?L. The reference range was not used to interpret this result as normal/abnormal . GRAN MAT (NEUT) % 88.1 % (test code = 770-8) IMM GRAN % (test code 0.70 % = 2136610135) LYMPH % (test code = 6.3 % 736-9) MONO % (test code = 4.5 % 5905-5) EOS % (test code = 0.0 % 713-8) BASO % (test code = 0.4 % 706-2) GRAN MAT x10^3(ANC) 13.61 10*3/uL 1.99-6.95 H (test code = 9959231003) IMM GRAN x10^3 (test 0.11 10*3/uL 0-0.06 H code = 6580884260) LYMPH x10^3 (test code 0.98 10*3/uL 1.09-3.23 L = 731-0) MONO x10^3 (test code 0.70 10*3/uL 0.36-1.02 = 742-7) EOS x10^3 (test code = 0.06-0.53 L 711-2) BASO x10^3 (test code 0.06 10*3/uL 0.01-0.09 = 704-7) Lab Interpretation Abnormal (test code = 38034-7) [facility]ownCREATINE [id number] 20:39:33 Test Item Value Reference Range Interpretation Comments CK (test code = 5053070101) 8585 U/L 33-194 H Lab Interpretation (test code = Abnormal 65046-3) [facility] [id number] 02:54:18 Test Item Value Reference Range Interpretation Comments CK (test code = 4483307494) 05523 U/L 33-194 H Lab Interpretation (test code = Abnormal 21822-8) [facility] [id number] 20:01:07 Test Item Value Reference Range Interpretation Comments CK (test code = 33-194 H 3849572467) JAYLON (test code = JAYLON) CK is approximately 19,916 U/L with extended dilution Lab Interpretation Abnormal (test code = 94097-8) [facility] METABOLIC PANEL (NA, K, CL, CO2, GLUCOSE, BUN, CREATININE, CA)2022-01-14 18:24:47 Test Item Value Reference Range Interpretation Comments NA (test code = 135 mmol/L 135-145 6925516756) K (test code = 4.0 mmol/L 3.5-5 9839631209) CL (test code = 101 mmol/L 98-108 7197933307) CO2 TOTAL (test code = 27 mmol/L 23-31 3969323333) AGAP (test code = 2-16 7931869524) BUN (test code = 28 mg/dL 7-23 H 2270033909) GLUCOSE (test code = 93 mg/dL 70-110 0644752960) CREATININE (test code = 1.19 mg/dL 0.6-1.25 9576662053) CALCIUM (test code = 8.3 mg/dL 8.6-10.6 L 5475492833) eGFR (test code = mL/min/1.73m2 6290163852) JAYLON (test code = JAYLON) Association of [...] tests). Lab Interpretation Abnormal (test code = 26115-2) [facility]ownCreatine Wrgvzl5189-82-79 08:14:23 Test Item Value Reference Range Interpretation Comments CK (test code = 33-194 H CK is approx imately 5316052700) 31,635 U/L with extended diluti on. Lab Interpretation Abnormal (test code = 24255-9) [facility]ownSalicylate2022-07-20 06:12:12 SALICYLATE<10mg/L01/14/2022 1:12 AM [facility] LABORATORY SERVICESTherapeutic Range: ? Analgesic and Antipyretic Use ? 20-100 mg/L ? ? Anti- Inflammatory Use ? 100-250 mg/L Toxic Range: ? Greater than 300 mg/LUnMatagorda Regional Medical CenterEthanol (ETOH) Gccpr7388-28-88 06:10:57ALCOHOL<10mg/dL01/14/2022 1:10 AM T[facility] LABORATORY SERVICESToxic Greater than or equal to 80 mg/dL. NOTE: Whole blood values are approximately 10% to 15% lower than serum and plasma.[facility] UptownAcetaminophen2022-07-20 05:35:31 Test Item Value Reference Range Interpretation Comments ACETAMINOP (test code = 10-30 L 8610202593) JAYLON (test code = JAYLON) Toxic: Greater than 200 ug/mL @ 4 hour post ingestion or greater than 50 ug/mL @ 12 hour post ingestion Lab Interpretation (test Abnormal code = 29477-2) [facility]ownComprehensive Metabolic Panel (45335) 2022-01-14 05:24:54 Test Item Value Reference Range Interpretation Comments NA (test code = 130 mmol/L 135-145 L 3048349012) K (test code = 4.4 mmol/L 3.5-5 Slight 3173932219) hemolysis CL (test code = 92 mmol/L 98-108 L 8127624250) CO2 TOTAL (test code 22 mmol/L 23-31 L = 8161587605) AGAP (test code = 2-16 4979523675) BUN (test code = 46 mg/dL 7-23 H Slight 9500541491) hemolysis GLUCOSE (test code = 106 mg/dL 70-110 7187458131) CREATININE (test code 2.89 mg/dL 0.6-1.25 H = 7326303872) TOTAL BILI (test code 1.5 mg/dL 0.1-1.1 H = 9582273698) CALCIUM (test code = 9.9 mg/dL 8.6-10.6 1572591826) T PROTEIN (test code 8.9 g/dL 6.3-8.2 H = 6014107755) ALBUMIN (test code = 5.6 g/dL 3.5-5 H 8578189279) ALK PHOS (test code = 76 U/L 34-122 Slight 5865611565) hemolysis ALTv (test code = 116 U/L 5-50 H 1742-6) AST(SGOT) (test code 468 U/L 13-40 H Slight = 9816974879) hemolysis eGFR (test code = mL/min/1.73m2 3918818607) JAYLON (test code = JAYLON) Association of [...] tests). Lab Interpretation Abnormal (test code = 78302-7) [facility] with Svjtmhdjiemx7259-10-18 05:05:30 Test Item Value Reference Range Interpretation Comments WBC (test code = See_Comment H [Automated 4711-2) message] The system which generated this result transmit lázaro reference range : 4.20 - 10.70 10*3/?L. The reference range was not used to interpret this result as normal/abnormal . RBC (test code = See_Comment [Automated 429-1) message] The system which generated this result [...] RDW-SD (test code = 41.7 fL 38.5-51.6 96118-8) RDW-CV (test code = 13.4 % 12.1-15.4 788-0) PLT (test code = See_Comment [Automated 777-3) message] The system which generated this result transmit lázaro reference range : 150 - 328 10*3/ ?L. The reference range was not u sed to interpret th is result as normal/abnormal . MPV (test code = 11.1 fL 9.8-13 76874-0) NRBC/100 WBC (test See_Comment [Automat ed code = 8863446962) message] The system which generated this result transmit lázaro reference range : 0.0 - 10.0 /100 WBCs. The reference range was not used to interpret this result as normal/abnormal . NRBC x10^3 (test code See_Comment [Auto mated = 5426216327) message] The system which generated this result transmit lázaro reference range : 10*3/?L. The reference range was not used to interpret this result as normal/abnormal . GRAN MAT (NEUT) % 66.5 % (test code = 770-8) IMM GRAN % (test code 0.30 % = 6224931985) LYMPH % (test code = 24.2 % 736-9) MONO % (test code = 7.5 % 5905-5) EOS % (test code = 0.9 % 713-8) BASO % (test code = 0.6 % 706-2) GRAN MAT x10^3(ANC) 10.46 10*3/uL 1.99-6.95 H (test code = 7532430376) IMM GRAN x10^3 (test 0.05 10*3/uL 0-0.06 code = 5303399025) LYMPH x10^3 (test code 3.81 10*3/uL 1.09-3.23 H = 731-0) MONO x10^3 (test code 1.18 10*3/uL 0.36-1.02 H = 742-7) EOS x10^3 (test code = 0.14 10*3/uL 0.06-0.53 711-2) BASO x10^3 (test code 0.10 10*3/uL 0.01-0.09 H = 704-7) Lab Interpretation Abnormal (test code = 61597-9) [facility]ownETHANOL2022-06-10 09:33:00 Test Item Value Reference Range Interpretation Comments ALCOHOL (test code = <10 mg/dL 3945664024) JAYLON (test code = Toxic Greater than or JAYLON) equal to 80 mg/dL. NOTE: Whole blood values are approximately 10% to 15% lower than serum and plasma. [facility] DRUG (IMMUNOASSAY) - COMPREHENSIVE DRUG [id number] 09:30:14 Test Item Value Reference Range Interpretation Comments CHERI S (test code = Negative Negative 0526099993) BENZO S (test code = Negative Negative 3638704933) TRICYCLIC (test code = Negative Negative 9795654102) JAYLON (test code = JAYLON) Serum Drug Screen Cutoff Ranges Barbiturates ? ? - 3 mcg/mLBenzodiazepines ?- 50 ng/mLTCA ?- 300 ng/mL Test developed and characteristics determined by [facility] Laboratory Services. The results are to be used only for medical (i.e., treatment) purposes. Unconfirmed screening results must not be used for non-medical purposes (e.g., employment testing, legal testing). Lab Interpretation Normal (test code = 32646-7) [facility]ownCOMP. METABOLIC PANEL (43423)2021-12-05 09:18:49 Test Item Value Reference Range Interpretation Comments NA (test code = 138 mmol/L 135-145 7424643131) K (test code = 4.1 mmol/L 3.5-5.0 8988835479) CL (test code = 102 mmol/L 98-108 4154691112) CO2 TOTAL (test code = 22 mmol/L 23-31 L 0610038641) AGAP (test code = 2-16 8034385891) BUN (test code = 8 mg/dL 7-23 0008641933) GLUCOSE (test code = 168 mg/dL 70-110 H 2142245209) CREATININE (test code = 0.96 mg/dL 0.60-1.25 9955235895) TOTAL BILI (test code = 0.5 mg/dL 0.1-1.3 7733011235) CALCIUM (test code = 9.9 mg/dL 8.6-10.6 7671998827) T PROTEIN (test code = 8.9 g/dL 6.3-8.2 H 7900316123) ALBUMIN (test code = 5.5 g/dL 3.5-5.0 H 4228034935) ALK PHOS (test code = 81 U/L 34-122 4780997368) ALTv (test code = 21 U/L 5-50 2-6) AST(SGOT) (test code = 28 U/L 13-40 6533801529) eGFR (test code = mL/min/1.73m2 2368426419) JAYLON (test code = JAYLON) Association of [...] tests). Lab Interpretation Abnormal (test code = 34800-4) [facility]ownCREATINE [id number] 09:18:09 Test Item Value Reference Range Interpretation Comments CK (test code = 2048150159) 348 U/L 33-194 H Lab Interpretation (test code = Abnormal 40866-0) [facility]ownCBC WITH [id number] 08:58:30 Test Item Value Reference Range Interpretation Comments WBC (test code = See_Comment H [Automated 5090-2) message] The system which generated this result [...] RDW-SD (test code = 39.5 fL 38.5-51.6 95474-0) RDW-CV (test code = 13.0 % 12.1-15.4 788-0) PLT (test code = See_Comment [Automated 777-3) message] The system which generated this result transmit lázaro reference range : 150 - 328 10*3/ ?L. The reference range was not u sed to interpret th is result as normal/abnormal . MPV (test code = 10.7 fL 9.8-13.0 62884-8) NRBC/100 WBC (test See_Comment [Automat ed code = 1234405158) message] The system which generated this result transmit lázaro reference range : 0.0 - 10.0 /100 WBCs. The reference range was not used to interpret this result as normal/abnormal . NRBC x10^3 (test code <0.01 See_Comment [Auto mated = 6209283018) message] The system which generated this result transmit lázaro reference range : 10*3/?L. The reference range was not used to interpret this result as normal/abnormal . GRAN MAT (NEUT) % 84.9 % (test code = 770-8) IMM GRAN % (test code 0.40 % = 1476458968) LYMPH % (test code = 9.2 % 736-9) MONO % (test code = 5.2 % 5905-5) EOS % (test code = 0.0 % 713-8) BASO % (test code = 0.3 % 706-2) GRAN MAT x10^3(ANC) 11.66 10*3/uL 1.99-6.95 H (test code = 9935981475) IMM GRAN x10^3 (test 0.06 10*3/uL 0.00-0.06 code = 6494678599) LYMPH x10^3 (test code 1.26 10*3/uL 1.09-3.23 = 731-0) MONO x10^3 (test code 0.72 10*3/uL 0.36-1.02 = 742-7) EOS x10^3 (test code = <0.03 0.06-0.53 L 711-2) BASO x10^3 (test code 0.04 10*3/uL 0.01-0.09 = 704-7) Lab Interpretation Abnormal (test code = 57316-4) [id number] 05:20:33 Test Item Value Reference Range Interpretation Comments CK (test code = [id number]) 1561 U/L 33-194 H Lab Interpretation (test code = Abnormal 55803-1) [facility] [id number] 04:27:03 Test Item Value Reference Range Interpretation Comments CK (test code = 1664063895) 3129 U/L 33-194 H Lab Interpretation (test code = Abnormal 02233-1) [facility]. METABOLIC PANEL (22763)2021-11-22 04:11:07 Test Item Value Reference Range Interpretation Comments NA (test code = 139 mmol/L 135-145 [id number]) K (test code = 4.3 mmol/L 3.5-5.0 3906606190) CL (test code = 106 mmol/L 98-108 6911319514) CO2 TOTAL (test code = 25 mmol/L 23-31 7860851375) AGAP (test code = 2-16 0603195278) BUN (test code = 19 mg/dL 7-23 3073157642) GLUCOSE (test code = 119 mg/dL 70-110 H 5387206896) CREATININE (test code = 1.23 mg/dL 0.60-1.25 7319273582) TOTAL BILI (test code = 0.7 mg/dL 0.1-1.0 6556019454) CALCIUM (test code = 9.8 mg/dL 8.6-10.6 0894995651) T PROTEIN (test code = 8.3 g/dL 6.3-8.2 H 8512416662) ALBUMIN (test code = 5.3 g/dL 3.5-5.0 H 5224700286) ALK PHOS (test code = 77 U/L 34-122 8090539755) ALTv (test code = 38 U/L 5-50 1742-6) AST(SGOT) (test code = 63 U/L 13-40 H 7868609672) eGFR (test code = mL/min/1.73m2 0877796883) JAYLON (test code = JAYLON) Association of [...] tests). Lab Interpretation Abnormal (test code = 83512-4) [facility] WITH [id number] 04:02:45 Test Item Value Reference Range Interpretation Comments WBC (test code = See_Comment H [Automated 9990-2) message] The sy stem which generated this [...] RDW-SD (test code = 41.1 fL 38.5-51.6 17687-4) RDW-CV (test code = 13.0 % 12.1-15.4 788-0) PLT (test code = See_Comment H [Automated 777-3) message] The sy stem which generated this result transmitted reference range : 150 - 328 10*3/ ?L. The reference r daja was not used to interpret this result as normal/abnormal . MPV (test code = 11.1 fL 9.8-13.0 30330-2) IPF % (test code = 6.4 % 1.2-10.7 Platelet count 5873977154) measured by fluorescence method. NRBC/100 WBC (test See_Comment [Automat ed code = 4325854396) message] The system which generated this result transmitted reference range : 0.0 - 10.0 /100 WBCs. The refer ence range was not u sed to interpret th is result as normal/abnormal . NRBC x10^3 (test code <0.01 See_Comment [Auto mated = 1571407579) message] The s ystem which generated this result transmitted reference range : 10*3/?L. The reference range was not used to interpret this result as normal/abnormal . GRAN MAT (NEUT) % 75.2 % (test code = 770-8) IMM GRAN % (test code 0.60 % = 5969464508) LYMPH % (test code = 11.8 % 736-9) MONO % (test code = 11.7 % 5905-5) EOS % (test code = 0.2 % 713-8) BASO % (test code = 0.5 % 706-2) GRAN MAT x10^3(ANC) 10.36 10*3/uL 1.99-6.95 H (test code = 6889849945) IMM GRAN x10^3 (test 0.08 10*3/uL 0.00-0.06 H code = 4984083828) LYMPH x10^3 (test 1.63 10*3/uL 1.09-3.23 code = 731-0) MONO x10^3 (test code 1.62 10*3/uL 0.36-1.02 H = 742-7) EOS x10^3 (test code 0.03 10*3/uL 0.06-0.53 L = 711-2) BASO x10^3 (test code 0.07 10*3/uL 0.01-0.09 = 704-7) REACT LYMPHS (test Rare code = 9391484404) Lab Interpretation Abnormal (test code = 19136-1) [facility] 03:45:36 Test Item Value Reference Range Interpretation Comments ALCOHOL (test code = <10 mg/dL 6062973691) JAYLON (test code = Toxic Greater than or JAYLON) equal to 80 mg/dL. NOTE: Whole blood values are approximately 10% to 15% lower than serum and plasma. [facility]ownACETAMINOPHEN2022-05-28 03:44:16 Test Item Value Reference Range Interpretation Comments ACETAMINOP (test code = <10.0 10.0-30.0 L 2200647272) JAYLON (test code = JAYLON) Toxic: Greater than 200 ug/mL @ 4 hour post ingestion or greater than 50 ug/mL @ 12 hour post ingestion Lab Interpretation (test Abnormal code = 81759-7) [facility]ownSALICYLATE2022-05-28 03:43:50 Test Item Value Reference Range Interpretation Comments SALICYLATE (test code <10 mg/L = 9312983713) JAYLON (test code = JAYLON) Therapeutic Range: ? Analgesic and Antipyretic Use ? 20-100 mg/L ? ? Anti-Inflammatory Use ? 100-250 mg/L Toxic Range: ? Greater than 300 mg/L [facility]ownXR FINGERS 2 VW [id number] 18:42:56 No evidence of fracture or traumatic [...] about the PIP joint.RL: [id number] of report [facility]XR CERVICAL SPINE 3 [id number] 18:38:591. No fracture or malalignment. 2. Minor spondylosis in the lower cervical spine. RL: [id number] End of Report EXAM: XR CERVICAL SPINE 3 VW ? ORDERING PHYSICIAN: ? K ?AMANDA HISTORY: Neck pain. Injury. COMPARISON: none FINDINGS:Three views of the cervical spine. Visualization is from the skull basethrough the C7 vertebral body. There is normal vertebral body height andalignment. ?No acute fracture is identified. ?Minimal loss of disc spa ceheight is present at C6-7. Small anterior osteophytes are present from E1czesnwq C7. There is straightening of the normal [...] C6-7. Small anterior osteophytes are present from V5cimbnfo C7. There is straightening of the normal cervical lordosis, likelyrelated to presence of cervical collar. Prevertebral soft tissues arenormal. The visualized lung apices are clear.IMPRESSION1. No fracture or malalignment. 2. Minor spondylosis in the lower cervical spine.RL: [id number] of Report [facility] CenterBASIC METABOLIC [id number] 15:01:00 Test Item Value Reference Range Interpretation [...] Dose Date: 06/28/00 Dose Time: HEPATIC FUNCTION [id number] 15:01:00 Test Item Value Reference Range Interpretation [...] ALKP) Last Dose Date: 06/28/00 Dose Time: [id number] 15:01:00 Test Item Value Reference Range Interpretation Comments ACETAMINOPHEN (test code = ACET) < 2.0 mcG/ML 10.0-30.0 L Last Dose Date: 06/28/00 Dose Time: [id number] 15:01:00 Test Item Value Reference Range Interpretation Comments ALCOHOL (test code = ALC) < 3 MG/DL 0-10 N Last Dose Date: 06/28/00 Dose Time: [id number] 07:32:00 Test Item Value Reference Range Interpretation Comments SALICYLATE (test code = ISA) < 1.7 MG/DL 2.8-20.0 THER L BASIC METABOLIC [id number] 07:24:00 Test Item Value Reference Range Interpretation [...] Dose Date: 06/28/00 Dose Time: HEPATIC FUNCTION [id number] 07:24:00 Test Item Value Reference Range Interpretation [...] ALKP) Last Dose Date: 06/28/00 Dose Time: [id number] 07:24:00 Test Item Value Reference Range Interpretation Comments ACETAMINOPHEN (test code = ACET) mcG/ML 10.0-30.0 Last Dose Date: 06/28/00 Dose Time: [id number] 07:24:00 Test Item Value Reference Range Interpretation Comments ALCOHOL (test code = ALC) < 3 MG/DL 0-10 N Last Dose Date: 06/28/00Last Dose Time: 0000UA RFLX MICR CULT IF [...] for culture: Suprapubic PainDRUGS OF ABUSE SCREEN [id number] 06:55:00 Test Item Value Reference Range Interpretation [...] culture: Suprapubic PainUA RFLX MICR CULT IF [id number] 06:44:00 Test Item Value Reference Range Interpretation [...] for culture: Suprapubic PainDRUGS OF ABUSE SCREEN [id number] 06:44:00 Test Item Value Reference Range Interpretation [...] culture: Suprapubic PainUA RFLX MICR CULT IF [id number] 06:43:00 Test Item Value Reference Range Interpretation [...] for culture: Suprapubic PainDRUGS OF ABUSE SCREEN [id number] 06:43:00 Test Item Value Reference Range Interpretation [...] CLEAN CATCHIndication for culture: Suprapubic PainCBC W/AUTO [id number] 06:40:00 Test Item Value Reference Range Interpretation [...] = NO DIFF/SCN CRITERIA MDIFF) CBC W/AUTO [id number] 21:39:00 Test Item Value Reference Range Interpretation [...] CONSISTA NT WITH AUTO DIFFERENTIAL. CBC W/AUTO [id number] 20:15:00 Test Item Value Reference Range Interpretation [...] code = DIFF/SCN CRITERIA MDIFF) COMPREHENSIVE METABOLIC [id number] 20:01:00 Test Item Value Reference Range Interpretation [...] 50-136 N (test code = ALKP) CREATINE [id number] 06:52:00 Test Item Value Reference Range Interpretation Comments CK (test code = 6708058987) 514 U/L 33-194 H Lab Interpretation (test code = Abnormal 55395-9) [facility]ownDRUG PANEL 2 [id number] 05:55:00 Test Item Value Reference Range Interpretation Comments AMPHET (test code = Presumptive Positive Negative A 9906170579) CHERI U (test code = Negative Negative 7582039102) BENZO U (test code = Negative Negative 4698647962) Cocaine Metabolite (test Negative Negative code = 3417851456) METHADONE (test code = Negative Negative 8751757052) OPIATES (test code = Negative Negative 7020678989) PCP (test code = Negative Negative 4810353476) THC (test code = Presumptive Positive Negative A 3675234977) JAYLON (test code = JAYLON) Urine Drug [...] testing). Lab Interpretation (test Abnormal code = 17247-1) [facility]ptownUrinalysis2020-02-24 05:07:00 Test Item Value Reference Range Interpretation Comments APPEARANCE (test code = Clear Clear 0627811251) COLOR (test code = Yellow Yellow 0693918986) PH (test code = 4.8-8.0 4012664702) SP GRAVITY (test code = 1.003-1.030 6550469668) GLU U QUAL (test code = Normal Normal 3989246692) BLOOD (test code = Negative Negative 9105613925) KETONES (test code = Negative Negative 6862602696) PROTEIN (test code = Negative Negative 2887-8) UROBILIN (test code = Normal Normal 8058091578) BILIRUBIN (test code = Negative Negative 6024306970) NITRITE (test code = Negative Negative 0071892212) LEUK ANDREW (test code = Negative Negative 1573902389) RBC/HPF (test code = <1 See_Comment [Autom ated message] 6510316371) The system [employer] generated this result transmitted ref erence range: 0 - 3 HP F. The reference range was not used to int erpret this result as normal/abnormal . WBC/HPF (test code = <1 See_Comment [Autom ated message] 4872403986) The system [employer] generated this result transmitted ref erence range: 0 - 5 HP F. The reference range was not used to int erpret this result as normal/abnormal . BACTERIA (test code = Negative Negative 3631173599) SQ EPITH (test code = <1 See_Comment [Auto mated message] 4321719884) The system [employer] generated this result transmitted ref erence range: <=2 HPF. The reference range was not used to int erpret this result as normal/abnormal . Lab Interpretation (test Normal code = 28404-3) [facility]ownACETAMINOPHEN2020-02-24 03:53:00 Test Item Value Reference Range Interpretation Comments ACETAMINOP (test code = <10.0 10-30 L 4892101378) JAYLON (test code = JAYLON) Toxic: Greater than 200 ug/mL @ 4 hour post ingestion or greater than 50 ug/mL @ 12 hour post ingestion Lab Interpretation (test Abnormal code = 66433-1) [facility]ownSALICYLATE2020-02-24 03:53:00 Test Item Value Reference Range Interpretation Comments SALICYLATE (test code <10 mg/L = 0071644018) JAYLON (test code = JAYLON) Therapeutic Range: ? Analgesic and Antipyretic Use ? 20-100 mg/L ? ? Anti-Inflammatory Use ? 100-250 mg/L Toxic Range: ? Greater than 300 mg/L [facility]ownBan[facility] Met[facility] Panel (NA, K, CL, CO2, GLUCOSE, BUN, CREATININE, CA)2019-08-21 03:52:00 Test Item Value Reference Range Interpretation Comments NA (test code = 138 mmol/L 135-145 8852403413) K (test code = 3.9 mmol/L 3.5-5 3397606126) CL (test code = 103 mmol/L 98-108 2728837361) CO2 TOTAL (test code = 26 mmol/L 23-31 7803050176) AGAP (test code = 2-16 5977517136) BUN (test code = 14 mg/dL 7-23 3958842360) GLUCOSE (test code = 106 mg/dL 70-110 5755801056) CREATININE (test code 0.83 mg/dL 0.6-1.25 = 6057733955) CALCIUM (test code = 9.2 mg/dL 8.6-10.6 2078564405) eGFR Calculation mL/min/1.73m2 (Non-) (test code = 8470771994) eGFR Calculation mL/min/1.73m2 () (test code = 4424807730) JAYLON (test code = JAYLON) Association of [...] or urine or abnormalities in imaging tests). [facility]ptownHepatic Function Panel (ALB, T.PRO, BILI T, BU/BC, ALT, AST, ALK PHOS)2019-08-21 03:52:00 Test Item Value Reference Range Interpretation Comments TOTAL BILI (test code = 9995108375) 0.2 mg/dL 0.1-1.1 BILI UNCON (test code = 1832538314) 0.2 mg/dL 0.1-1.1 BILI CONJ (test code = 1934357960) 0.0 mg/dL 0-0.3 T PROTEIN (test code = 7404419114) 7.0 g/dL 6.3-8.2 ALBUMIN (test code = 7514849807) 4.4 g/dL 3.5-5 ALK PHOS (test code = 1269760781) 100 U/L 34-122 ALTv (test code = 1742-6) 18 U/L 5-50 AST(SGOT) (test code = 9022340964) 29 U/L 13-40 Lab Interpretation (test code = Normal 97546-6) [facility] UptownEthanol [id number] 03:52:00 Test Item Value Reference Range Interpretation Comments ALCOHOL (test code = 24 mg/dL 8198356400) JAYLON (test code = Toxic Greater than or JAYLON) equal to 80 mg/dL. NOTE: Whole blood values are approximately 10% to 15% lower than serum and plasma. [facility] UptownCB WITH [id number] 03:40:00 Test Item Value Reference Range Interpretation Comments WBC (test code = See_Comment H [Automated 3790-2) message] The sy stem which generated this [...] RDW-SD (test code = 42.3 fL 38.5-51.6 81559-6) RDW-CV (test code = 12.8 % 12.1-15.4 788-0) PLT (test code = See_Comment [Automated 777-3) message] The sy stem which generated this result transmitted reference range : 150 - 328 10*3/ ?L. The reference r daja was not used to interpret this result as normal/abnormal . MPV (test code = 10.5 fL 9.8-13 23961-1) NRBC/100 WBC (test See_Comment [Automat ed code = 7992428081) message] The system which generated this result transmitted reference range : 0.0 - 10.0 /100 WBCs. The refer ence range was not u sed to interpret th is result as normal/abnormal . NRBC x10^3 (test code <0.01 See_Comment [Auto mated = 6402345236) message] The s ystem which generated this result transmitted reference range : 10*3/?L. The reference range was not used to interpret this result as normal/abnormal . GRAN MAT (NEUT) % 71.2 % (test code = 770-8) IMM GRAN % (test code 0.30 % = 7014688571) LYMPH % (test code = 21.4 % 736-9) MONO % (test code = 5.3 % 5905-5) EOS % (test code = 1.2 % 713-8) BASO % (test code = 0.6 % 706-2) GRAN MAT x10^3(ANC) 9.03 10*3/uL 1.99-6.95 H (test code = 0331132641) IMM GRAN x10^3 (test 0.04 10*3/uL 0-0.06 code = 4998180422) LYMPH x10^3 (test code 2.71 10*3/uL 1.09-3.23 = 731-0) MONO x10^3 (test code 0.67 10*3/uL 0.36-1.02 = 742-7) EOS x10^3 (test code = 0.15 10*3/uL 0.06-0.53 711-2) BASO x10^3 (test code 0.08 10*3/uL 0.01-0.09 = 704-7) Lab Interpretation Abnormal (test code = 31701-8) [facility] UptownXR HAND 3+ VW [id number] 08:29:53 No acute osseous abnormality of the right hand. RL: 460 AFC: [id number] Ordering physician: ANNA MARIE DIAZ INDICATION: Acute injury to the right and COMPARISON: None FINDINGS: 3 views of the right hand. No acute fracture or dislocation isappreciated. There is no radiopaque foreign body. [facility], Radiant Results Inft User - 03/03/2019 3:31 AM CDTOrdering physician: WAKILI S YARIMAINDICATION: Acute injury tothe right andCOMPARISON: NoneFINDINGS: 3 views of the right hand. No acute fracture or dislocation isappreciated. There is no radiopaque foreign body.IMPRESSIONNo acute osseous abnormality of the righthand.RL: 460AFC: 33903 [facility] UptownValproic Acid Tbvql0717-02-12 08:10:30 Test Item Value Reference Range Interpretation Comments Valproic Acid Level (test code 94.1 ug/mL(g) 50.0-100.0 = Valproic Acid Level) Hemoglobin [id number] 09:40:02 Test Item Value Reference Range Interpretation Comments Hemoglobin A1c (test code 5.0 % 4.8-5.9 No n Diabetic = Hemoglobin A1c) 4.8-5.9%Di abetic <7.0% Valproic Acid [id number] 08:30:39 Test Item Value Reference Range Interpretation Comments Valproic Acid Level (test code 120.3 ug/mL(g) 50.0-100.0 H = Valproic Acid Level) RPR Kliolqwllve2424-67-02 06:07:29 Test Item Value Reference Range Interpretation [...] = 10.31.2019 N Expiration Dt) Thyroid Stimulating Pmqenxi2720-62-17 02:34:05 Test Item Value Reference Range Interpretation Comments TSH (test code = TSH) 1.290 mIU/mL 0.270-4.200 Lipid Tbuyc2352-73-94 02:16:21 Test Item Value Reference Range Interpretation Comments Cholesterol Total 127 mg/dL 0-200 RISK OF HE ART (test code = DISEASEPublishe d by Cholesterol Total) [employer] [employer] Dottie lyte Optimal Borderl ine [...] LDL/HDL Ratio=L DL Calc/HDL Chol Comprehensive Metabolic Irbgw0077-25-79 12:18:35 Test Item Value Reference Range Interpretation [...] A/G 2.0 ratio N Ratio) Comprehensive Metabolic Udpsn6549-49-77 12:18:35 Test Item Value Reference Range Interpretation [...] provided, and t he patient is jaziel le, multiply by 0.7 42. Results for [...] the National Kidney Foundation, http://nkdep.ni h.gov Alcohol Iejch4278-15-13 12:18:35 Test Item Value Reference Range Interpretation Comments Ethanol Level (test <0.00 g/dL 0.00-0.01 Intoxica lázaro 0.080 g/dL code = Ethanol or more Level) Ethanol Inst (test <0 N code = Ethanol Inst) Comprehensive Metabolic [id number] 12:18:35 Test Item Value Reference Range Interpretation [...] e have not been validated by [facility] MDRD study and should be interpreted [...] e have not been validated by [facility] MDRD study and should be interpreted wit h caution. eGFR R esult Interpretation: eGFR > or = 60 is in the Normal RangeeGF R < 60 may mean kid bekah diseaseeGFR < 1 5 may mean kidney failure Rang es recommended by the National Kidney Foundation, http://nkdep.ni h.gov Drugs of Abuse Urine 89172-25-07 11:40:37 Test Item Value Reference Range Interpretation [...] Cannabinoid Screen Ur) Urinalysis with Culture, if zykaclkna8583-33-34 11:17:21 Test Item Value Reference Range Interpretation [...] Micro Ind?) rule GL_SJM_UA_MICRO _IN D Automated Dfndtdchxvsu0462-59-03 11:14:20 Test Item Value Reference Range Interpretation Comments Neutro Auto (test code = Neutro 73.7 % 36.0-70.0 H Auto) Lymph Auto (test code = Lymph Auto) 18.8 % 12.0-44.0 Sanborn Auto (test code = Sanborn Auto) 5.0 % 0.0-11.0 Eos, Auto (test code = Eos, Auto) 1.4 % 0.0-7.0 Basophil Auto (test code = Basophil 0.7 % 0.0-2.0 Auto) Neutro Absolute (test code = Neutro 6.3 x10 1.6-7.4 Absolute) Lymph Absolute (test code = Lymph 1.61 x10 .50-4.60 Absolute) Sanborn Absolute (test code = Sanborn .43 x10 .00-1.20 Absolute) Eos Absolute (test code = Eos 0.12 x10 0.00-0.74 Absolute) Baso Absolute (test code = Baso 0.06 x10 0.00-0.21 Absolute) IG Trrxp7016-11-12 11:14:20 Test Item Value Reference Range Interpretation Comments IG (test code = IG) 0.4 % 0.0-5.0 IG Abs (test code = IG Abs) 0 x10 N Complete Blood Count with Luxxfxefjcer2905-24-01 11:14:19 Test Item Value Reference Range Interpretation [...] IPF) 0 % N XR chest 1V [facility] [address] [place] [address] Patient Name: Carlos Wu Medical Record#: [id number] Address: [address] [place] [address] City/State/Zip: [place] [address]: Anabel bunch MD Insurance: Self Pay /Age/Sex: 1990/31/M Admit/Reg Date: 02/07/[address]: MD Jayme Rubio, PAC Location: MED/ PCP: PcpMd PALMIRA Cole Date of Service: 02/07/22 Order (s): XR chest 1V CPT Code: 92059 Report Number: [id number] Reason for Exam: tachy Location: H3 CHEST X-RAY: AP frontal pr ojection, one view, 02/07/2022 CLINICAL HISTORY: Tachycardia COMPARISON EXAMS: None of the chest FINDINGS: Heart, lungs, and mediastinal structures are within normal limits. No pneumonia or CHF. No abnormal air collection. No acute osseous finding. IMPRESSION: No acute finding Electronically signed by:Rina Villegas MD 02/07/2022 2:01 AM CDT Dictated By: Rina Navarro MD 02/07/22 015 Signed By: Rina Navarro MD 02/07/22 0204 TD/TT: 02/07/22 015 Tech: GPS02 cc: ISLMD; PCPNO* MD Jayme Rubio, PAC; Pcp-Md PALMIRA MainEKG ED Electrocardiogram [facility] [address] [place] [address] Patient Name: Carlos Wu Medical Record#: [id number] Address: [address] [place] [address] City/State/Zip: [place] [address]: Anabel bunch MD Insurance: Self Pay /Age/Sex: 1990/31/M Admit/Reg Date: 02/07/[address]: MD Jayme Rubio, PAC Location: [facility]/ PCP: Pcp-Md PALMIRA Main Date of Service: 02/07/22 Order (s): EKG ED Electrocar diogram CPT Code: 32207 Report Number: [id number] Reason for Exam: Chest Pain Sinus tachycardia LAE, consider biatrial enlargement Right axis deviation Artifact in lead(s) I,II,III,aVR,aVL,aVF,V1,V2,V3,V4,V5 Summary: Abnormal ECG Dictated By: Stephani Lambert MD 02/07/22 0015 Signed By: Stephani Lambert MD 02/08/22 1447 TD/TT: 02/07/22 0015 Tech: SVCCPA cc: ISLMD; PCPNO* MD Jayme Rubio, PAC; Pcp-Md PALMIRA Main
[2022-05-02 07:41] LABS: Urine Blood Trace-intact (Negative); Urine Glucose Negative (Negative); Urine Protein Negative (Negative); Urine Specific Gravity >=1.030 (1.005-1.030); Urine pH 5.5 (5.0-7.0)
[2022-05-02 08:08] LABS: Barbiturates NEGATIVE (NEGATIVE); Benzodiazepines NEGATIVE (NEGATIVE); Cocaine NEGATIVE (NEGATIVE); METHAMPHETAM POSITIVE (NEGATIVE); Methadone NEGATIVE (NEGATIVE); Opiates NEGATIVE (NEGATIVE); Phencyclidine NEGATIVE (NEGATIVE); THC Cannibis POSITIVE (NEGATIVE)
[2022-05-02 08:15] LABS: Hematocrit 42.2 % (39.6-49.0); Lymphocytes % 16.9 % (15.3-44.8); MCV 87.2 fL (80-100); MPV 9.3 fL (7.6-11.3); RBC Red Blood Cell Count 4.84 M/uL (4.33-5.43)
[2022-05-02 08:19] LABS: Protime INR 0.92
[2022-05-02 08:30] LABS: ALT/SGPT 27 U/L (12-78); AST/SGOT 15 U/L (15-37); Albumin 3.9 g/dL (3.4-5.0); Alkaline Phosphatase 89 U/L (45-117); BUN Blood Urea Nitrogen 20 mg/dL (7-18); Bicarbonate 28 mmol/L (21-32); Bilirubin Direct 0.2 mg/dL (0-0.2); Bilirubin Total 0.6 mg/dL (0.2-1.0); Glomerular Filtration Rate 96 ml/min (=/>90); Glucose Level 101 mg/dL (74-106); Potassium 4.2 mmol/L (3.5-5.1); Protein, Total 6.9 g/dL (6.4-8.2); Sodium Level 138 mmol/L (136-145)
--- NOTE | 2022-05-02 10:30 | ER ---
Nurse's Notes [facility] Name: Carlos Walker Age: 31 yrs Sex: Male : 1990 Arrival Date: 05/02/2022 Time: 06:22 Bed 5 Private MD: Diagnosis: Substance abuse, Bipolar Presentation: 05/02 07:18 Chief complaint: Patient states: Dropped off by [place] [employer] for "suicidal ideations and ss seeing snakes." PT reports that he has not been taking his home medications, and has been using Meth. Coronavirus screen: Client denies travel out of the [place] in the last 14 days. Ebola Screen: Patient denies exposure to infectious person. Patient denies travel to an Ebola-affected area in the 21 days before illness onset. Initial Sepsis Screen: Does the patient meet any 2 criteria? No. Patient's initial sepsis screen is negative. Does the patient have a suspected source of infection? No. Patient's initial sepsis screen is negative. Risk Assessment: Do you want to hurt yourself or someone else? Patient reports no desire to harm self or others. Onset of symptoms is unknown. 07:18 Method Of Arrival: Ambulatory 07:18 Acuity: EDD 2 ss Historical: - Allergies: 07:20 Abilify; ss 07:20 Promethazine; ss - Home Meds: 07:20 Zyprexa 2 mg Oral once daily [Active]; Trazodone 200 mg Oral once daily [Active]; ss Risperdal 2 mg Oral tab 1 tab once daily [Active]; Depakote 1000 mg Oral once daily [Active]; - PMHx: 07:20 Bipolar disorder; Schizophrenia; ss - PSHx: 07:20 None; ss - Immunization history:: Client reports receiving the 2nd dose of the Covid vaccine. - Social history:: Smoking status: Patient denies any tobacco usage or history of. Screenin:01 Abuse screen: Denies threats or abuse. Denies injuries from another. Nutritional kc6 screening: No deficits noted. Tuberculosis screening: No symptoms or risk factors identified. Fall Risk No fall in past 12 months (0 pts). No secondary diagnosis (0 pts). IV access (20 points). Ambulatory Aid- None/Bed Rest/Nurse Assist (0 pts). Gait- Normal/Bed Rest/Wheelchair (0 pts) Mental Status- Oriented to own ability (0 pts). Total Mares Fall Scale indicates No Risk (0-24 pts). Assessment: 07:45 Reassessment: C-SSRS packet complete. kc6 08:13 General: Appears in no apparent distress. comfortable, Behavior is cooperative, kc6 appropriate for age, agitated, anxious, restless. Pain: Denies pain. Neuro: Bell Agitation-Sedation Scale (RASS): +1 Restless Level of Consciousness is awake, alert, obeys commands, Oriented to person, place, time, situation, Appropriate for age. Respiratory: Airway is patent Trachea midline Respiratory effort is even, unlabored, Respiratory pattern is regular, symmetrical. GI: No signs and/or symptoms were reported involving the gastrointestinal system. : No signs and/or symptoms were reported regarding the genitourinary system. EENT: No signs and/or symptoms were reported regarding the EENT system. Derm: No signs and/or symptoms reported regarding the dermatologic system. Skin is intact, Skin is pink, warm \\T\\ dry. Musculoskeletal: No signs and/or symptoms reported regarding the musculoskeletal system. Circulation, motion, and sensation intact. Capillary refill < 3 seconds, Range of motion: intact in all extremities. 09:13 Reassessment: Patient appears in no apparent distress at this time. No changes from kc6 previously documented assessment. Patient and/or family updated on plan of care and expected duration. Pain level reassessed. Patient is alert, oriented x 3, equal unlabored respirations, skin warm/dry/pink. 10:13 Reassessment: Patient appears in no apparent distress at this time. No changes from kc6 previously documented assessment. Patient and/or family updated on plan of care and expected duration. Pain level reassessed. Patient is alert, oriented x 3, equal unlabored respirations, skin warm/dry/pink. 10:20 Reassessment: [facility] talking to pt via facetime. mb9 Vital Signs: 07:18 BP 119 / 79; Pulse 75; Resp 14; Temp 97.6(TE); Pulse Ox 100% on R/A; Weight 84.82 kg; ss Height 5 ft. 8 in. (172.72 cm); Pain 0/10; 11:01 BP 118 / 84; Pulse 65; Resp 16 S; Temp 98.0(O); Pulse Ox 97% on R/A; Pain 0/10; kc6 07:18 Body Mass Index 28.43 (84.82 kg, 172.72 cm) ED Course: 06:22 Patient arrived in ED. ja2 07:20 Triage completed. 07:20 Arm band placed on left wrist. 07:22 Lisandra Goel MD is Attending Physician. sp3 07:32 Stephanie Mtata, RN is Primary Nurse. vg1 08:09 Safety Checks: Personal items have been removed. The door is open or patient has been vg1 placed in a hallway bed/chair. Sitter not present at this time due to or because sitter unavailable at this time; charge nurse aware Other: Pt appears in NAD, AO x4, respirations WLN. 08:11 Inserted saline lock: 20 gauge in right antecubital area, using aseptic technique. kc6 Blood collected. 08:33 Safety Checks: Personal items have been removed. The door is open or patient has been vg1 placed in a hallway bed/chair. Sitter not present at this time due to or because sitter unavailable at this time; charge nurse aware Other: Pt appears in NAD, AO x4, Respirations WLN. 09:41 Safety Checks: Personal items have been removed. The door is open or patient has been kc6 placed in a hallway bed/chair. Sitter present at this time. Other: eyes closed, respirations even and unlabored. easily aroused. 09:58 called the [facility] Crisis line at [phone]/ Ivette will page out the screener on eb call. 11:01 Patient has correct armband on for positive identification. Placed in gown. Bed in low kc6 position. Call light in reach. Adult w/ patient. 11:01 No provider procedures requiring assistance completed. IV discontinued, intact, kc6 bleeding controlled, No redness/swelling at site. Pressure dressing applied. Administered Medications: No medications were administered Medication: 11:03 VIS not applicable for this client. kc6 Outcome: 10:29 Discharge ordered by . sp3 11:01 Discharged to home ambulatory. kc6 11:01 Condition: stable 11:01 Discharge instructions given to patient, Instructed on discharge instructions, follow up and referral plans. Demonstrated understanding of instructions, follow-up care. 11:05 Patient left the ED. kc6 Signatures: Marley Harris, RN RN ss Jerilyn Appiah Victoria, RN RN vg1 Lisandra Goel MD MD sp3 Karlene Schilling Kaitlyn, RN RN kc6 Nathalie, Ivette Corrigan RN RN mb9
--- NOTE | 2022-05-02 10:30 | EDPHYS ---
Physician Documentation [facility] Name: Carlos Walker Age: 31 yrs Sex: Male : 1990 Arrival Date: 05/02/2022 Time: 06:22 Bed 5 Private MD: ED Physician Lisandra Goel HPI: 05/02 07:56 This 31 yrs old Male presents to ER via Ambulatory with complaints of Suicidal sp3 Ideation, Psych Problem. 07:56 31-year-old male with a history of bipolar disorder, schizophrenia now presents with sp3 "hearing voices, seeing snakes, and wanting to kill himself." He denies having any actual plan and also denies homicidal ideation. He is still actively using crystal meth. He denies any somatic symptoms including headache, neck pain, chest pain, shortness of breath, back pain, abdominal pain, nausea, vomiting, diarrhea, rash, or any other symptoms on ROS at this time.. Historical: - Allergies: 07:20 Abilify; ss 07:20 Promethazine; ss - Home Meds: 07:20 Zyprexa 2 mg Oral once daily [Active]; Trazodone 200 mg Oral once daily [Active]; ss Risperdal 2 mg Oral tab 1 tab once daily [Active]; Depakote 1000 mg Oral once daily [Active]; - PMHx: 07:20 Bipolar disorder; Schizophrenia; ss - PSHx: 07:20 None; ss - Immunization history:: Client reports receiving the 2nd dose of the Covid vaccine. - Social history:: Smoking status: Patient denies any tobacco usage or history of. ROS: 07:57 Constitutional: Negative for fever, chills, and weight loss, Eyes: Negative for injury, sp3 pain, redness, and discharge, ENT: Negative for injury, pain, and discharge, Neck: Negative for injury, pain, and swelling, Cardiovascular: Negative for chest pain, palpitations, and edema, Respiratory: Negative for shortness of breath, cough, wheezing, and pleuritic chest pain, Abdomen/GI: Negative for abdominal pain, nausea, vomiting, diarrhea, and constipation, Back: Negative for injury and pain, MS/Extremity: Negative for injury and deformity, Skin: Negative for injury, rash, and discoloration, Neuro: Negative for headache, weakness, numbness, tingling, and seizure, Allergy/Immunology: Negative for hives, rash, and allergies. 07:57 All other systems are negative. Exam: 07:57 Constitutional: This is a well developed, well nourished patient who is awake, alert, sp3 and in no acute distress. Head/Face: Normocephalic, atraumatic. Eyes: Pupils equal round and reactive to light, extra-ocular motions intact. Lids and lashes normal. Conjunctiva and sclera are non-icteric and not injected. Cornea within normal limits. Periorbital areas with no swelling, redness, or edema. ENT: Nares patent. No nasal discharge, no septal abnormalities noted. External auditory canals are clear. Oropharynx with no redness, swelling, or masses, exudates, or evidence of obstruction, uvula midline. Mucous membranes moist. Neck: Trachea midline, no thyromegaly or masses palpated, and no cervical lymphadenopathy. Supple, full range of motion without nuchal rigidity, or vertebral point tenderness. No Meningismus. Chest/axilla: Normal chest wall appearance and motion. Nontender with no deformity. No lesions are appreciated. Cardiovascular: Regular rate and rhythm with a normal S1 and S2. No gallops, murmurs, or rubs. Normal PMI, no JVD. No pulse deficits. Respiratory: Lungs have equal breath sounds bilaterally, clear to auscultation and percussion. No rales, rhonchi or wheezes noted. No increased work of breathing, no retractions or nasal flaring. Abdomen/GI: Soft, non-tender, with normal bowel sounds. No distension or tympany. No guarding or rebound. No evidence of tenderness throughout. Back: No spinal tenderness. No costovertebral tenderness. Full range of motion. Skin: Warm, dry with normal turgor. Normal color with no rashes, no lesions, and no evidence of cellulitis. Neuro: Awake and alert, GCS 15, oriented to person, place, time, and situation. Cranial nerves II-XII grossly intact. Motor strength 5/5 in all extremities. Sensory grossly intact. Cerebellar exam normal. Normal gait. 07:57 Psych: Patient states she is suicidal, but has no particular plan. He denies homicidal ideation. He states that he sees "snakes here and there". He has been here for similar symptoms in the past. He does not appear to be responding to internal stimuli and has no around his body to indicate any self-harm.. Vital Signs: 07:18 BP 119 / 79; Pulse 75; Resp 14; Temp 97.6(TE); Pulse Ox 100% on R/A; Weight 84.82 kg; ss Height 5 ft. 8 in. (172.72 cm); Pain 0/10; 11:01 BP 118 / 84; Pulse 65; Resp 16 S; Temp 98.0(O); Pulse Ox 97% on R/A; Pain 0/10; kc6 07:18 Body Mass Index 28.43 (84.82 kg, 172.72 cm) ss MDM: 07:23 Patient medically screened. sp3 07:58 Data reviewed: vital signs, nurses notes. ED course: 31-year-old male with bipolar sp3 disease and schizophrenia and drug abuse. Patient has long history of difficulty with mental health facilities and most local facilities are no longer willing to accept him. [facility] has been where he is gone the last several times if and when needed. We will obtain work-up here in the ED and attempt disposition for this highly complex patient. Malingering is also on the differential. Disposition pending. Please see orders for work-up which includes UDS and labs.. 10:27 ED course: Psychiatric team/[facility] does not recommend admission either -- will d/c sp3 pt home at this time. Labs reviewed. . 05/02 07:30 Order name: Acetaminophen; Complete Time: 10:30 sp3 05/02 07:30 Order name: Basic Metabolic Panel; Complete Time: 10:30 sp3 05/02 07:30 Order name: CBC with Diff; Complete Time: 10:30 sp3 05/02 07:30 Order name: ETOH Level; Complete Time: 10:30 sp3 05/02 07:30 Order name: Hepatic Function; Complete Time: 10:30 sp3 05/02 07:30 Order name: PT-INR; Complete Time: 10:30 sp3 05/02 07:30 Order name: Ptt, Activated; Complete Time: 10:30 sp3 05/02 07:30 Order name: Salicylate; Complete Time: 10:30 sp3 05/02 07:30 Order name: Urine Drug Screen; Complete Time: 10:30 sp3 05/02 07:30 Order name: EKG; Complete Time: 07:31 sp3 05/02 07:30 Order name: EKG - Nurse/Tech; Complete Time: 08:08 sp3 05/02 07:30 Order name: IV Saline Lock; Complete Time: 08:08 sp3 05/02 07:30 Order name: Labs collected and sent; Complete Time: 08:08 sp3 05/02 07:41 Order name: Urine Dipstick-Ancillary; Complete Time: 10:30 EDMS 05/02 07:30 Order name: Suicide Precautions; Complete Time: 08:08 sp3 05/02 07:30 Order name: Suicide Screening ([place]); Complete Time: 08:08 sp3 05/02 07:30 Order name: Urine Dipstick-Ancillary (obtain specimen); Complete Time: 08:09 sp3 Administered Medications: No medications were administered Disposition Summary: 05/02/22 10:29 Discharge Ordered Location: Home sp3 Condition: Stable sp3 Diagnosis - Substance abuse, Bipolar sp3 Followup: sp3 - With: Private Physician - When: Upon discharge from the Emergency Department - Reason: Continuance of care Discharge Instructions: - Discharge Summary Sheet sp3 - Substance Use Disorder sp3 - Suicidal Feelings: How to Help Yourself sp3 Forms: - Medication Reconciliation Form sp3 - Thank You Letter sp3 - Antibiotic Education sp3 - Prescription Opioid Use sp3 Signatures: Dispatcher [employer] Marley Roche RN RN ss Patel, Setul, MD MD sp3
[2022-05-02 11:46] VITALS: BP 118/84; TEMP 98; O2SAT 97
--- NOTE | 2022-05-04 08:32 | EKG ---
Test Date: 2022-05-02 Test Time: 08:06:15 Seasonal Driver: MEASUREMENT RESULTS: Intervals: Rate: 69 CA: 142 QRSD: 96 QT: 382 QTc: 409 [place]: P: 66 CA: 142 QRS: 87 T: 39 INTERPRETIVE STATEMENTS: Normal sinus rhythm Incomplete right bundle branch block Septal infarct, age undetermined Abnormal ECG Compared to ECG 04/12/2022 02:25:26 Myocardial infarct finding now present Electronically Signed On 05-04-22 08:29:26 EXTRUSION DIE REPAIRER by Ángel Maki
== END 2022-05-02 11:05 | disposition home or self-care (01) ==
LOC: ER 06:20
DX: F19.10 Other psychoactive substance abuse, uncomplicated (principal); F31.9 Bipolar disorder, unspecified
CPT/HCPCS: 36415; 80048; 80076; 80307; 80320; 80329; 81003; 85025; 85610; 85730; 93005; 99283